=== PATIENT | male | born 1965 | race Caucasian/White ===

== ENCOUNTER 2017-01-07 23:52 | Emergency (ER) | payer OTHER ==
[2017-01-08 00:03] VITALS: BP 127/89; PULSE 67; RESP 18; TEMP 99.2
[2017-01-08] MEDS ORDERED: methylPREDNISolone SOD SUCCI 125 MG/2 ML VIAL IM STA (00:31)
[2017-01-08] MEDS ORDERED: HYDROmorphone 1 MG/ML 1 ML SYRINGE IM STA (00:31)
[2017-01-08] MEDS ORDERED: ORPHENADRINE 30 MG/ML 2 ML VIAL IM STA (00:31)
--- NOTE | 2017-01-08 00:48 | ED ---
Upper Extremity HPI - General Chief Complaint: Extremity Injury, Upper Stated Complaint: Shoulder Pain/Arm Numb Time Seen by Provider: 01/08/17 00:11 Source: patient, RN notes reviewed Mode of arrival: wheelchair Limitations: no limitations - History of Present Illness Initial Comments: 51-year-old male presents to the emergency department with a chief complaint of bilateral shoulder pain and numbness and tingling down the left arm. Patient has been having the symptoms for about a month ever since he had an injury at work. Patient states that he went orthopedics and he is scheduled to have an MRI on Friday. Patient states he just continued to has the discomfort he tried narcotic was at home with no improvement so he thought maybe we could help him. He is hoping that we can get in the arm so that doesn't hurt anymore. Patient denies any new falls or injuries. Patient states that these symptoms are much like the symptoms he had when he fell and now actually is hand movement has improved since he seen or felt. Patient states he was hoping that we can just take his pain away and that he could get some sleep.Patient denies any recent fever, chills, shortness of breath, chest pain, back pain, abdominal pain, nausea vomiting, numbness or tingling, dysuria or hematuria, constipation or diarrhea, headaches or visual changes, or any other current symptoms. Place: home - Related Data Home Medications Medication Instructions Recorded Confirmed Metoprolol Succinate (ER) [Toprol 100 mg PO DAILY 01/08/17 01/08/17 Xl] Pravastatin Sodium [Pravachol] 10 mg PO DAILY 01/08/17 01/08/17 Previous Rx's Medication Instructions Recorded Orphenadrine [Norflex] 100 mg PO Q12H #10 tablet.er 01/08/17 predniSONE 50 mg PO DAILY #5 tab 01/08/17 Allergies Allergy/AdvReac Type Severity Reaction Status Date / Time No Known Allergies Allergy Verified 01/08/17 00:03 Review of Systems ROS Statement: Those systems with pertinent positive or pertinent negative responses have been documented in the HPI. ROS Other: All systems not noted in ROS Statement are negative. Past Medical History Past Medical History: Hypertension History of Any Multi-Drug Resistant Organisms: None Reported Past Surgical History: Appendectomy, Orthopedic Surgery, Tonsillectomy Past Psychological History: No Psychological Hx Reported Smoking Status: Never smoker Past Alcohol Use History: None Reported Past Drug Use History: None Reported General Exam Limitations: no limitations General appearance: alert, in no apparent distress Head exam: Present: atraumatic, normocephalic, normal inspection Eye exam: Present: normal appearance, PERRL, EOMI. Absent: scleral icterus, conjunctival injection, periorbital swelling Neck exam: Present: normal inspection. Absent: tenderness, meningismus, lymphadenopathy Respiratory exam: Present: normal lung sounds bilaterally. Absent: respiratory distress, wheezes, rales, rhonchi, stridor Cardiovascular Exam: Present: regular rate, normal rhythm, normal heart sounds. Absent: systolic murmur, diastolic murmur, rubs, gallop, clicks Extremities exam: Present: normal inspection, full ROM, tenderness (Diffusely over bilateral shoulders), normal capillary refill, other (Patient does have some decreased strength to dentist private practice in the left hand.) Neurological exam: Present: alert, oriented X3 Psychiatric exam: Present: normal affect, normal mood Skin exam: Present: warm, dry, intact, normal color. Absent: rash Course Vital Signs 01/07/17 23:57 Temperature 99.2 F Pulse Rate 67 Respiratory 18 Rate Blood Pressure 127/89 O2 Sat by Pulse 93 L Oximetry Medical Decision Making - Medical Decision Making 50-year-old male presents emergency Department with a chief complaint of bilateral left shoulder pain which is chronic for the last month or so as well as numbness and tingling to the left arm. This time we did set the patient on steroids muscle relaxers. We discussed continuing to take the pain medication at home. We discussed follow-up with orthopedic follow-up with MRI. We discussed return parameters all patient's questions. He stated he understood the plan. At this time he will be discharged home. Disposition Clinical Impression: Strain of knee, bilateral, Left cervical radiculopathy Disposition: HOME SELF-CARE Condition: Stable Instructions: Cervical Radiculopathy (ED) Additional Instructions: Please use medication as discussed. Please follow up with family doctor if symptoms have not improved over the next two days. Please return to the emergency room if your symptoms increase or worsen or for any other concerns. Prescriptions: Orphenadrine [Norflex] 100 mg PO Q12H #10 tablet.er predniSONE 50 mg PO DAILY #5 tab Referrals: Kareem Ying DO [Primary Care Provider] - 1-2 days Time of Disposition: 00:47
== END 2017-01-08 01:02 | disposition home or self-care (01) ==
LOC: EC 23:52
DX: S46.912A Strain of unspecified muscle, fascia and tendon at shoulder and upper arm level, left arm, initial encounter (principal); S46.911A Strain of unspecified muscle, fascia and tendon at shoulder and upper arm level, right arm, initial encounter; M54.12 Radiculopathy, cervical region; I10 Essential (primary) hypertension; Z79.899 Other long term (current) drug therapy; W01.0XXA Fall on same level from slipping, tripping and stumbling without subsequent striking against object, initial encounter; Y92.009 Unspecified place in unspecified non-institutional (private) residence as the place of occurrence of the external cause
CPT/HCPCS: 99283; 96372 ×3; J2360; J2930; J1170

== ENCOUNTER 2017-01-25 05:43 | Emergency (ER) | payer OTHER ==
[2017-01-25 05:50] VITALS: TEMP 98.4
[2017-01-25] MEDS ORDERED: MORPHINE SULFATE 4 MG/ML SYRINGE IV STA (06:24)
[2017-01-25 06:48] LABS: Basophils % (A) 1 %; CH 32.4; CHCM 34.3; Eosinophils % (A) 1 %; HCT 43.2 % (39.0-53.0); HDW 2.16; HGB 14.5 gm/dL (13.0-17.5); Luc # (Auto) 0.15; Luc % (Auto) 4; Lymphocytes # (A) 1.3 k/uL (1.0-4.8); Lymphocytes % (A) 36 %; MCHC 33.7 g/dL (31.0-37.0); Mean Platelet Volume 7.3; Monocytes # (A) 0.3 k/uL (0-1.0); Monocytes % (A) 7 %; Neutrophils # (A) 1.8 k/uL (1.3-7.7); Neutrophils % (A) 51 %; RBC 4.54 m/uL (4.30-5.90); RDW 14.4 % (11.5-15.5); WBC 3.5 k/uL (3.8-10.6); WBC (Perox) 3.53
--- NOTE | 2017-01-25 06:49 | ED ---
Extremity Problem HPI - General Source: patient Mode of arrival: wheelchair Limitations: no limitations - History of Present Illness MD Complaint: extremity pain -: hour(s) Location: left, upper extremity History of Same: Yes Quality: aching, constant Consistency: constant Improves with: other (Physician) Worsens with: other (Position) Associated Symptoms: denies other symptoms <Stanley Horn - Last Filed: 01/25/17 06:43> <Americo Fuentes - Last Filed: 01/25/17 09:05> - General Chief complaint: Extremity Problem,Nontraumatic Stated complaint: Shoulder/Neck Pain Time Seen by Provider: 01/25/17 06:03 - History of Present Illness Initial comments: This patient is a 51-year-old man who presents with complaint of pain to his left shoulder as well as weakness of the left arm. The patient states that he has had approximately 8 weeks of left shoulder pain like he is having now. 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 The patient has been evaluated in the emergency department and also had follow- up with orthopedics as well as having MRI. He was told that he has an issue with the C6 disc. Patient states that he slept "all over the place last night" and when he woke he was having weakness and aching of the left arm. (Stanley Horn) - Related Data Home Medications Medication Instructions Recorded Confirmed Metoprolol Succinate (ER) [Toprol 100 mg PO DAILY 01/08/17 01/08/17 Xl] Pravastatin Sodium [Pravachol] 10 mg PO DAILY 01/08/17 01/08/17 Previous Rx's Medication Instructions Recorded Orphenadrine [Norflex] 100 mg PO Q12H #10 tablet.er 01/08/17 predniSONE 50 mg PO DAILY #5 tab 01/08/17 Cyclobenzaprine [Flexeril] 10 mg PO TID PRN #20 tablet 01/25/17 Hydrocodone/Acetaminophen [Osprey 2 each PO Q6HR PRN #20 tab 01/25/17 5-325] Ibuprofen [Motrin] 600 mg PO Q6HR PRN #20 tab 01/25/17 Allergies Allergy/AdvReac Type Severity Reaction Status Date / Time Penicillins Allergy Unknown Verified 01/25/17 05:51 Childhood Review of Systems ROS Other: All systems not noted in ROS Statement are negative. Constitutional: Denies: fever, chills Respiratory: Denies: cough, dyspnea Cardiovascular: Denies: chest pain, palpitations, orthopnea, syncope Gastrointestinal: Denies: abdominal pain, nausea, vomiting Musculoskeletal: Reports: as per HPI, arthralgia Skin: Denies: rash Neurological: Reports: weakness. Denies: headache, numbness, paresthesias <KoryStanley - Last Filed: 01/25/17 06:43> ROS Other: All systems not noted in ROS Statement are negative. <Americo Fuentes - Last Filed: 01/25/17 09:05> ROS Statement: Those systems with pertinent positive or pertinent negative responses have been documented in the HPI. Past Medical History Past Medical History: Hypertension History of Any Multi-Drug Resistant Organisms: None Reported Past Surgical History: Appendectomy, Orthopedic Surgery, Tonsillectomy Past Psychological History: No Psychological Hx Reported Smoking Status: Never smoker Past Alcohol Use History: None Reported Past Drug Use History: None Reported <oKryStanley - Last Filed: 01/25/17 06:43> General Exam Limitations: no limitations General appearance: alert, in distress Head exam: Present: atraumatic, normocephalic Eye exam: Present: normal appearance. Absent: scleral icterus, conjunctival injection Respiratory exam: Present: normal lung sounds bilaterally. Absent: respiratory distress, wheezes, rales, rhonchi, stridor Cardiovascular Exam: Present: regular rate, normal rhythm, normal heart sounds. Absent: systolic murmur, diastolic murmur, rubs, gallop GI/Abdominal exam: Present: soft. Absent: distended, tenderness, guarding, rebound, mass Extremities exam: Present: full ROM, tenderness, normal capillary refill. Absent: calf tenderness Back exam: Present: normal inspection. Absent: CVA tenderness (R), CVA tenderness (L) Neurological exam: Present: alert, oriented X3, CN II-XII intact, motor sensory deficit (The patient has 4 out of 5 strength throughout the left upper extremity which is definitely weak versus a contralateral side.) Skin exam: Present: warm, dry, intact, normal color. Absent: rash <Stanley Horn - Last Filed: 01/25/17 06:43> Medical Decision Making - EKG Data -: EKG Interpreted by Mi EKG shows normal: sinus rhythm, axis (Normal), intervals (QTc is 486 ms which is prolonged.), QRS complexes (Normal) Rate: normal (Rate approximately 73 bpm) Interpretation: nonspecific ST-T wave changes <Stanley Horn - Last Filed: 01/25/17 06:43> - Lab Data Result diagrams: 01/25/17 06:30 01/25/17 06:30 - Radiology Data Radiology results: report reviewed (Computed tomography scan of the brain shows no acute process) <Americo Fuentes - Last Filed: 01/25/17 09:05> - Medical Decision Making Patient reevaluated by myself, Dr. Fuentes. Patient states fall occurred 10 weeks ago and did fall around 10 feet. 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 Patient states it is not significantly worse over the past several days. Patient states his discomfort has increased significantly over the past couple of days. Patient still feels uncomfortable despite pain medication. Patient did follow-up with Dr. Santoyo and had MRI done around 10 days ago stating there was a C6 degenerative problem. Patient reexamined again at 8:55 AM. Patient is starting to feel somewhat better and comfortable and requests discharge home. Patient would like further pain medication prior to discharge. Patient is advised to follow-up with specialist or neurosurgeon for further evaluation. Patient has been on steroids twice for this and therefore this will be avoided this time. (Americo Fuentes) - Lab Data Lab Results 01/25/17 01/25/17 01/25/17 Range/Units 06:30 06:30 06:30 WBC 3.5 L (3.8-10.6) k/uL RBC 4.54 (4.30-5.90) m/uL Hgb 14.5 (13.0-17.5) gm/dL Hct 43.2 (39.0-53.0) % MCV 95.0 (80.0-100.0) fL MCH 32.0 (25.0-35.0) pg MCHC 33.7 (31.0-37.0) g/dL RDW 14.4 (11.5-15.5) % Plt Count 91 L (150-450) k/uL Neutrophils % 51 % Lymphocytes % 36 % Monocytes % 7 % Eosinophils % 1 % Basophils % 1 % Neutrophils # 1.8 (1.3-7.7) k/uL Lymphocytes # 1.3 (1.0-4.8) k/uL Monocytes # 0.3 (0-1.0) k/uL Eosinophils # 0.0 (0-0.7) k/uL Basophils # 0.0 (0-0.2) k/uL Manual Slide Review Performed Sodium 143 (137-145) mmol/L Potassium 3.3 L (3.5-5.1) mmol/L Chloride 100 (98-107) mmol/L Carbon Dioxide 28 (22-30) mmol/L Anion Gap 15 mmol/L BUN 13 (9-20) mg/dL Creatinine 0.58 L (0.66-1.25) mg/dL Est GFR (MDRD) Af Amer >60 (>60 ml/min/1.73 sqM) Est GFR (MDRD) Non-Af >60 (>60 ml/min/1.73 sqM) Glucose 86 (74-99) mg/dL Calcium 8.5 (8.4-10.2) mg/dL Magnesium (1.6-2.3) mg/dL Total Bilirubin 1.0 (0.2-1.3) mg/dL AST 169 H (17-59) U/L ALT 107 H (21-72) U/L Alkaline Phosphatase 69 (38-126) U/L Troponin I <0.012 (0.000-0.034) ng/mL Total Protein 6.8 (6.3-8.2) g/dL Albumin 4.0 (3.5-5.0) g/dL 01/25/17 Range/Units 06:30 WBC (3.8-10.6) k/uL RBC (4.30-5.90) m/uL Hgb (13.0-17.5) gm/dL Hct (39.0-53.0) % MCV (80.0-100.0) fL MCH (25.0-35.0) pg MCHC (31.0-37.0) g/dL RDW (11.5-15.5) % Plt Count (150-450) k/uL Neutrophils % % Lymphocytes % % Monocytes % % Eosinophils % % Basophils % % Neutrophils # (1.3-7.7) k/uL Lymphocytes # (1.0-4.8) k/uL Monocytes # (0-1.0) k/uL Eosinophils # (0-0.7) k/uL Basophils # (0-0.2) k/uL Manual Slide Review Sodium (137-145) mmol/L Potassium (3.5-5.1) mmol/L Chloride (98-107) mmol/L Carbon Dioxide (22-30) mmol/L Anion Gap mmol/L BUN (9-20) mg/dL Creatinine (0.66-1.25) mg/dL Est GFR (MDRD) Af Amer (>60 ml/min/1.73 sqM) Est GFR (MDRD) Non-Af (>60 ml/min/1.73 sqM) Glucose (74-99) mg/dL Calcium (8.4-10.2) mg/dL Magnesium 1.8 (1.6-2.3) mg/dL Total Bilirubin (0.2-1.3) mg/dL AST (17-59) U/L ALT (21-72) U/L Alkaline Phosphatase (38-126) U/L Troponin I (0.000-0.034) ng/mL Total Protein (6.3-8.2) g/dL Albumin (3.5-5.0) g/dL Disposition <Stanley Horn - Last Filed: 01/25/17 06:43> Time of Disposition: 09:05 <Americo Fuentes - Last Filed: 01/25/17 09:05> Clinical Impression: Cervical radiculopathy Disposition: HOME SELF-CARE Condition: Stable Instructions: Cervical Radiculopathy (ED) Additional Instructions: Please follow-up with Dr. Ferrer or neurosurgeon this coming week. Return for increased weakness, uncontrolled pain, fever, change or worsening symptoms or other concerns. Prescriptions: Cyclobenzaprine [Flexeril] 10 mg PO TID PRN #20 tablet PRN Reason: Pain Hydrocodone/Acetaminophen [Osprey 5-325] 2 each PO Q6HR PRN #20 tab PRN Reason: Pain Ibuprofen [Motrin] 600 mg PO Q6HR PRN #20 tab PRN Reason: Pain Referrals: None,Stated [Primary Care Provider] - 1-2 days Deann Ferrer DO [Doctor of Osteopathic Medicine] - 1-2 days Luis,Petr, MD [STAFF PHYSICIAN] - 1-2 days Shraddha Griffith MD [REFERRING] - 1-2 days
[2017-01-25] MEDS ORDERED: HYDROmorphone 1 MG/ML 1 ML SYRINGE IVP STA ×2 (06:54→07:59)
[2017-01-25 06:55] LABS: ALT 107 U/L (21-72); AST 169 U/L (17-59); Alkaline Phosphatase 69 U/L (38-126); Anion Gap 15 mmol/L; Blood Urea Nitrogen 13 mg/dL (9-20); Calcium 8.5 mg/dL (8.4-10.2); Carbon Dioxide 28 mmol/L (22-30); Chloride 100 mmol/L (98-107); Glucose 86 mg/dL (74-99); Non-African American GFR(MDRD) >60 (>60 ml/min/1.73 sqM); Potassium 3.3 mmol/L (3.5-5.1); Sodium 143 mmol/L (137-145); Total Protein 6.8 g/dL (6.3-8.2)
[2017-01-25 07:07] LABS: Manual Review Performed
--- NOTE | 2017-01-25 07:22 | CT ---
EXAM: CT Head Without Intravenous Contrast CLINICAL HISTORY: weakness TECHNIQUE: Axial computed tomography images of the head/brain without intravenous contrast. CTDI is 60.3 mGy and DLP is 1180.9 mGy-cm. This CT exam was performed using one or more of the following dose reduction techniques: automated exposure control, adjustment of the mA and/or kV according to patient size, and/or use of iterative reconstruction technique. Coronal and sagittal reconstructions are performed COMPARISON: No relevant prior studies available. FINDINGS: Brain: Unremarkable. No hemorrhage. No significant white matter disease. No edema. Ventricles: Unremarkable. No ventriculomegaly. Bones/joints: Unremarkable. No acute fracture. Soft tissues: Unremarkable. Sinuses: Minimal air fluid level in left sphenoid sinus. Mastoid air cells: Unremarkable as visualized. No mastoid effusion. IMPRESSION: No acute intracranial findings.
[2017-01-25 07:23] VITALS: RESP 18
[2017-01-25] MEDS ORDERED: ONDANSETRON 4 MG/2 ML VIAL IVP STA (08:25)
[2017-01-25] MEDS ORDERED: ORPHENADRINE 30 MG/ML 2 ML VIAL IVP STA (09:02)
[2017-01-25] MEDS ORDERED: KETOROLAC 30 MG/ML 1 ML VIAL IVP STA (09:02)
[2017-01-25 09:15] VITALS: BP 174/97; PULSE 70
== END 2017-01-25 09:30 | disposition home or self-care (01) ==
LOC: EC 05:43
DX: M54.12 Radiculopathy, cervical region (principal); I10 Essential (primary) hypertension; Z79.899 Other long term (current) drug therapy; Z88.0 Allergy status to penicillin; W17.89XD Other fall from one level to another, subsequent encounter
CPT/HCPCS: 36415; 93005; 80053; 83735; 84484; 85025; 70450; 99284; 96374; 96376; 96375 ×4; J2270; J2360; J2405; J1885; J1170

== ENCOUNTER → 2017-12-29 | Outpatient (CLI) | payer OTHER ==
--- NOTE | 2017-12-29 08:42 | US ---
EXAMINATION TYPE: US abdomen limited DATE OF EXAM: 12/29/2017 COMPARISON: NONE CLINICAL HISTORY: 52-year-old male R17 Unspecified Jaundice. Elevated total bilirubin TECHNIQUE: Multiple sonographic images of the right upper quadrant are obtained. 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 Visualized portions show no gross abnormal body. Liver: Limited intercostal views show echogenic appearance. No focal lesion in the visualized portion s. Gallbladder: No abnormal distention, pericholecystic fluid, or shadowing calculi. Wall thickness is upper limits of normal at 3 mm. Evidence for sonographic Pollock's sign: no CBD: appears wnl as visualized Right Kidney: no evidence of hydronephrosis IMPRESSION: 1. No cholelithiasis or biliary ductal dilatation. 2. Technically limited exam with intercostal imaging of the liver showing echogenic appearance. Findi ngs suggest hepatic steatosis.
== END | disposition home or self-care (01) ==
LOC: RADUSWWP 07:27
PROVIDERS: ATTEND Internal Medicine
DX: R93.2 Abnormal findings on diagnostic imaging of liver and biliary tract (principal); R17 Unspecified jaundice
CPT/HCPCS: 76705

== ENCOUNTER → 2018-08-26 | Outpatient (CLI) | payer OTHER ==
[2018-08-26 15:57] LABS: Partial Thromboplastin Time 23.7 sec (22.0-30.0); Prothrombin Time 11.1 sec (9.0-12.0)
[2018-08-27 02:56] LABS: Albumin 3.8 g/dL (3.80-4.90); Albumin/Globulin Ratio 1.52 (1.20-2.10); Calcium 8.6 mg/dL (8.7-10.3); Globulin 2.5 g/dL (1.6-3.3); Potassium 4.2 mmol/L (3.5-5.5); Total Bilirubin 0.8 mg/dL (0.3-1.2); Total Protein 6.3 g/dL (6.2-8.2)
[2018-08-27 04:20] LABS: Cardiolipin Ab IgG Interp NEGATIVE (NEGATIVE); Cardiolipin Ab IgM Interp NEGATIVE (NEGATIVE); Cardiolipin IgA Antibody 1.3 U/mL
[2018-08-27 08:07] LABS: APTT 39 Sec(s) (<43); Anti-Thrombin III Antigen 87 % (80 - 120); DRVVT 1:1 Mix 43 Sec(s) (<44); Dilute Russell Viper Venom 53 Sec(s) (<44); Protein S Antigen 158 % (50 - 140)
[2018-08-28 11:02] LABS: Protein C (Activity) 41 % (71-138)
== END | disposition home or self-care (01) ==
LOC: LABWHC1 14:44
PROVIDERS: ATTEND Internal Medicine
DX: D68.69 Other thrombophilia (principal)
CPT/HCPCS: 36415; 80053; 82784; 82785; 83090; 85301; 85303; 85305; 85610; 85613; 85730; 86147

== ENCOUNTER → 2019-09-06 | Outpatient (CLI) | payer MEDICARE ==
--- NOTE | 2019-09-06 10:09 | US ---
EXAMINATION TYPE: US abdomen limited DATE OF EXAM: 09/06/2019 COMPARISON: US 12/29/17 CLINICAL HISTORY: R74.8 Elevated liver enzymes. EXAM MEASUREMENTS: Liver Length: 17.7 cm cm Gallbladder Wall: 0.4 cm CBD: 0.5 cm Right Kidney: 12.5 x 5.6 x 5.6 cm Pancreas: Within normal limits Liver: There is increased echogenicity of the hepatic parenchyma with diminished visualization of th e portal triads most commonly relating to hepatic steatosis and limiting evaluation for underlying he patic masses. Gallbladder: Filled with gallstones. Evidence for sonographic Pollock's sign: No CBD: wnl Right Kidney: No hydronephrosis or nephrolithiasis IMPRESSION: 1. Cholelithiasis without sonographic evidence of acute cholecystitis. 2. Sonographic findings most commonly related to hepatic steatosis. Correlate with liver function garrett ts.
== END | disposition home or self-care (01) ==
LOC: RADUSWWP 08:55
PROVIDERS: ATTEND Internal Medicine
DX: K80.20 Calculus of gallbladder without cholecystitis without obstruction (principal)
CPT/HCPCS: 76705

== ENCOUNTER 2022-08-16 20:14 | Inpatient (IN) | payer MEDICARE, OTHER ==
[~2022-08-16 20:14] MED LIST: EPINEPHrine 10 ML SYRINGE (0.1 MG/ML) ONE; NOREPINEPHRINE 1 MG/ML 4 ML VIAL IV ONE; SODIUM CHLORIDE 0.9% 250 ML BAG ONE
[2022-08-16] MEDS ORDERED: SODIUM CHLORIDE 0.9% 1,000 ML IV ONE ×3 (20:34→23:03)
[2022-08-16] MEDS ORDERED: ROCURONIUM 10 MG/ML (5 ML VIAL) IV STA (20:35)
[2022-08-16] MEDS ORDERED: ETOMIDATE 2 MG/ML 10 ML VIAL IVP STA (20:35)
[2022-08-16 20:37] LABS: Glucose,Whole Blood 128 mg/dL (70-110)
--- NOTE | 2022-08-16 20:52 | ED ---
Altered Mental Status HPI - General Chief Complaint: Altered Mental Status Stated Complaint: Altered Mental Time Seen by Provider: 08/16/22 20:15 Source: EMS Mode of arrival: EMS - History of Present Illness Initial Comments: 57-year-old male with past medical history of alcohol abuse presents to the emergency department as a possible code stroke. EMS states that the patient was at home, acting his normal self around 7:30. It is then reported that his roommate checked out him at 8 PM and found face first down in bed unresponsive. They found the patient to be hypotensive. They required bagging him into the emergency department because of his agonal respirations. It was reported that the patient is an alcoholic and was on a binge recently. Daughter and friend arrived to the emergency department. They state that the patient has not had anything to drink since the first. He has had significant nausea and vomiting. They state that today he was vomiting until he could no longer stand and slumped down. This is when they called EMS. The remainder of the HPI is limited due to the patient's obtunded status - Related Data Home Medications Medication Instructions Recorded Confirmed Metoclopramide [Reglan] 5 mg PO QID PRN 08/17/22 08/17/22 Metoprolol Succinate (ER) [Toprol 50 mg PO DAILY 08/17/22 08/17/22 XL] Omeprazole [PriLOSEC] 20 mg PO DAILY 08/17/22 08/17/22 Potassium Chloride ER [K-Dur 20] 20 meq PO BID 08/17/22 08/17/22 Pravastatin Sodium [Pravachol] 40 mg PO DAILY 08/17/22 08/17/22 methocarbamoL [Methocarbamol] 750 mg PO TID PRN 08/17/22 08/17/22 Previous Rx's Medication Instructions Recorded Hydrocodone/Acetaminophen [[place] 2 each PO Q6HR PRN #20 tab 01/25/17 5-325] Allergies Allergy/AdvReac Type Severity Reaction Status Date / Time Penicillins Allergy Unknown Verified 08/17/22 12:59 Childhood Review of Systems ROS Statement: Those systems with pertinent positive or pertinent negative responses have been documented in the HPI. ROS Other: All systems not noted in ROS Statement are negative. Past Medical History Past Medical History: Hypertension History of Any Multi-Drug Resistant Organisms: None Reported Past Surgical History: Appendectomy, Orthopedic Surgery, Tonsillectomy Past Psychological History: No Psychological Hx Reported Past Alcohol Use History: None Reported Past Drug Use History: None Reported - Past Family History family Family Medical History: Cancer Additional Family Medical History / Comment(s): no CAD General Exam Limitations: altered mental status General appearance: obtunded Head exam: Present: atraumatic, normocephalic, normal inspection Pupils: Present: mydriatic ENT exam: Present: mucous membranes dry Neck exam: Present: normal inspection Respiratory exam: Present: other (agonal breathing) Cardiovascular Exam: Present: tachycardia, irregular rhythm Neurological exam: Present: altered, other (will not follow commands. nonsensical speech. no lateralizing deficits appreaciated) Psychiatric exam: Present: agitated Skin exam: Present: diaphoretic, mottled Course Vital Signs 08/16/22 08/16/22 08/16/22 20:16 20:26 20:36 Temperature 97.0 F L Pulse Rate 170 H 168 H 184 H Respiratory 18 16 1 L Rate Blood Pressure 97/80 87/69 95/45 O2 Sat by Pulse 90 L 89 L Oximetry Fraction of Inspired Oxygen (FIO2) 08/16/22 08/16/22 08/16/22 20:37 20:40 20:41 Temperature Pulse Rate 203 H 197 H Respiratory 7 L 18 Rate Blood Pressure 57/42 63/26 O2 Sat by Pulse 100 Oximetry Fraction of 100 Inspired Oxygen (FIO2) 08/16/22 08/16/22 08/16/22 20:45 21:14 21:17 Temperature Pulse Rate 110 H 104 H Respiratory 18 16 Rate Blood Pressure 104/65 131/79 O2 Sat by Pulse 100 99 Oximetry Fraction of 100 Inspired Oxygen (FIO2) 08/16/22 08/16/22 08/16/22 22:00 23:00 23:11 Temperature Pulse Rate 102 H 101 H 93 Respiratory 18 18 18 Rate Blood Pressure 130/84 80/56 108/93 O2 Sat by Pulse 98 98 100 Oximetry Fraction of 70 Inspired Oxygen (FIO2) 08/17/22 00:00 Temperature Pulse Rate 91 Respiratory 31 H Rate Blood Pressure 114/87 O2 Sat by Pulse 98 Oximetry Fraction of Inspired Oxygen (FIO2) - Reevaluation(s) Reevaluation #1: Spoke with Dr. Barillas - will await stabilization of the patient and CT/Ct angiography 01/06/23 2030 Reevaluation #2: Patient intubated, cardioverted and now off to CT 08/16/22 20:52 Reevaluation #3: 08/16/22 21:[address] Barillas - will not administer TPA. No CVA seen on CT. Patient likely has other diagnosis to explain AMS. Risks outweigh benefits of TPA. Reevaluation #4: Spoke with Dr. Nesbitt, agrees to admit patient. 08/16/22 23:16 Procedures - Procedures Initial comment: Synchronized cardioversion performed at 150J. Patient already intubated and sedated prior to procedure. Performed due to hemodynamic instability. No consent obtained due to emergent nature. - ABG Interpretation Ph: 7.1 PCO2: 50 PO2: 240 Bicarbonate: 16.5 Interpretation: metabolic acidosis - Intubation Sedative: Etomidate Mg Given: 20 Paralytic: Rocuronium Mg Given: 50 Laryngoscope: fiber optic video scope Size: 3 ET Tube Size: 7 ET Tube Uncuffed: No Tube Secured Depth (cm): 24 Tube Secured Location: lips Tube Placement Confirmation: visualized tube passing through cords, equal breath sounds bilaterally, no breath sounds over epigastrium, confirmation by capnometry Patient Tolerated Procedure: well, no complications Medical Decision Making - Medical Decision Making Was pt. sent in by a medical professional or institution? no Did you speak to anyone other than the patient for history? girlfriend, daughter, ems Did you review nursing and triage notes? yes and I agree Were old charts reviewed? yes in an attempt to gain history on the patient Differential Diagnosis? MDM Differential Altered Mental Status: Hypoglycemia, DKA, hypercapnia, ETOH, overdose, CO poisoning, trauma, myxedema coma, HTN encephalopathy, infection, encephalitis, psychosis, intercranial hemorrhage, hepatic encephalopathy, meningitis, CVA this is not meant to be an all-inclusive list EKG interpreted by me (3pts min.)? yes X-rays interpreted by me (1pt min.)? yes CT interpreted by me (1pt min.)? yes U/S interpreted by me (1pt. min.)? no What testing was considered but not performed? (CT, X-rays, U/S, labs)? Why? none What meds were considered but not given? Why? none Did you discuss the management of the patient with other professionals? elementary school director and admitting physician Did you reconcile home meds? yes Was smoking cessation discussed for >3mins.? no Was critical care preformed (if so, how long)? 48 minutes Were there social determinants of health that impacted care today? How? (Homelessness, low income, unemployed, alcoholism, drug addiction, transportation, low edu. Level, literacy, decrease access to med. care, snf, rehab)? alcoholism put the patient into withdrawal subsequently leading to ER visit Was there de-escalation of care discussed even if they declined? (Discuss DNR or withdrawal of care, Hospice)? no What co-morbidities impacted this encounter? (DM, HTN, Smoking, COPD, CAD, Cancer, CVA, Hep., AIDS, mental health diagnosis, sleep apnea, morbid obesity)? alcohol abuse Was patient admitted / discharged? @Upon arrival the patient was promptly placed into trauma 2. He is placed on continuous pulse ox and cardiac monitoring. Vitals are obtained. Patient does have a heart rate of 220. Blood pressure is 50/30. Patient has agonal respirations. He does not follow any commands. Do attempt to assess an NIH which is 21. Code stroke was activated as it is reported to me that the patient had sudden onset of altered mental status. Due to the patient's inability to protect his airway, he is intubated. At 7-[place] tube is secured 24 cm at the lip. The patient is then cardioverted due to his hypotension and elevated heart rate. He does have conversion to a normal sinus rhythm with normal blood pressure. He is given 3 L bolus of normal saline. Patient taken for CT of his brain, CT angiography is head and neck, CT angios chest abdomen pelvis due to his altered mental status, hypotension, mottled extremities. CTs are read as negative. Did discuss the case with Dr. Barillas. Risk of alteplase administration is too high in regards to the benefits of treatment and therefore this is not administered to the patient. Laboratory studies reveal a potassium of 2.7. Lactic of 12.4. Troponin of 0.304. Patient was originally placed on a propofol drip however he does have a markedly decrease in his blood pressure with this medication. This is removed and the patient is started on a Versed and fentanyl drip. I did discuss the patient's care with Dr. Wilson who will accept admission of the patient. I also spoke with Dr. Nesbitt who accepted the patient into ICU. He will be placed on 150 mL of normal saline per hour. He is on a Versed drip for alcohol withdrawal. Cardiology and nephrology consulted. Patient taken to the floor in stable condition with guarded p rognosis Undiagnosed new problem with uncertain prognosis? yes Drug Therapy requiring intensive monitoring for toxicity (Heparin, Nitro, Insulin, Cardizem)? yes - propofol gtt which is later switched to fentanyl and versed gtt Were any procedures done? Intubation, synchronized cardioversion Diagnosis/symptom? encephalopathy with vent dependance Acute, or Chronic, or Acute on Chronic? acute Uncomplicated (without systemic symptoms) or Complicated (systemic symptoms)? complicated Side effects of treatment? possible with intubation Exacerbation, Progression, or Severe Exacerbation] no Poses a threat to life or bodily function? yes Diagnosis/symptom? new onset afib with rvr Acute, or Chronic, or Acute on Chronic? acute Uncomplicated (without systemic symptoms) or Complicated (systemic symptoms)? complicated Side effects of treatment? possible with cardioversion Exacerbation, Progression, or Severe Exacerbation] no Poses a threat to life or bodily function? yes Diagnosis/symptom? acute hypotension Acute, or Chronic, or Acute on Chronic? acute Uncomplicated (without systemic symptoms) or Complicated (systemic symptoms)? complicated Side effects of treatment? possible with cardioversion Exacerbation, Progression, or Severe Exacerbation] no Poses a threat to life or bodily function? yes - Lab Data Result diagrams: 08/26/22 05:00 08/26/22 15:10 Lab Results 08/16/22 08/16/22 08/16/22 Range/Units 20:35 21:19 21:19 WBC (3.8-10.6) k/uL RBC (4.30-5.90) m/uL Hgb (13.0-17.5) gm/dL Hct (39.0-53.0) % MCV (80.0-100.0) fL MCH (25.0-35.0) pg MCHC (31.0-37.0) g/dL RDW (11.5-15.5) % Plt Count (150-450) k/uL MPV Neutrophils % % Lymphocytes % % Monocytes % % Eosinophils % % Basophils % % Neutrophils # (1.3-7.7) k/uL Lymphocytes # (1.0-4.8) k/uL Monocytes # (0-1.0) k/uL Eosinophils # (0-0.7) k/uL Basophils # (0-0.2) k/uL PT (9.0-12.0) sec INR (<1.2) APTT (22.0-30.0) sec Sample Site ABG pH (7.35-7.45) ABG pCO2 (35-45) mmHg ABG pO2 (83-108) mmHg ABG HCO3 (21-25) mmol/L ABG Total CO2 (19-24) mmol/L ABG O2 Saturation (94-97) % ABG Base Excess mmol/L Clint Test VBG pH (7.31-7.41) VBG pCO2 (37-51) mmHg VBG HCO3 (24-28) mmol/L FiO2 % Sodium (137-145) mmol/L Potassium (3.5-5.1) mmol/L Chloride (98-107) mmol/L Carbon Dioxide (22-30) mmol/L Anion Gap mmol/L BUN (9-20) mg/dL Creatinine (0.66-1.25) mg/dL Est GFR (CKD-EPI)AfAm (>60 ml/min/1.73 sqM) Est GFR (CKD-EPI)NonAf (>60 ml/min/1.73 sqM) Glucose (74-99) mg/dL POC Glucose (mg/dL) 128 H (70-110) mg/dL POC Glu Gem Carver ID [place] Lactic Ac Sepsis Rflx Plasma Lactic Acid Aiden (0.7-2.0) mmol/L Calcium (8.4-10.2) mg/dL Total Bilirubin (0.2-1.3) mg/dL AST (17-59) U/L ALT (4-49) U/L Alkaline Phosphatase (38-126) U/L Ammonia (<30) umol/L Troponin I (0.000-0.034) ng/mL Total Protein (6.3-8.2) g/dL Albumin (3.5-5.0) g/dL Urine Color Dark Yellow Urine Appearance Cloudy (Clear) Urine pH 5.5 (5.0-8.0) Ur Specific [place] 1.034 (1.001-1.035) Urine Protein 2+ H (Negative) Urine Glucose (UA) Trace H (Negative) Urine Ketones Negative (Negative) Urine Blood Moderate H (Negative) Urine Nitrite Negative (Negative) Urine Bilirubin 1+ H (Negative) Urine Urobilinogen 3.0 (<2.0) mg/dL Ur Leukocyte Esterase Negative (Negative) Urine RBC 8 H (0-5) /hpf Urine WBC 10 H (0-5) /hpf Ur Squamous Epith Cells 2 (0-4) /hpf Cellular Casts 4 (0) /lpf Hyaline Casts 218 H (0-2) /lpf Urine Mucus Many H (None) /hpf Urine Opiates Screen Not Detected (NotDetected) Ur Oxycodone Screen Not Detected (NotDetected) Urine Methadone Screen Not Detected (NotDetected) Ur Propoxyphene Screen Not Detected (NotDetected) Ur Barbiturates Screen Not Detected (NotDetected) U Tricyclic Antidepress Not Detected (NotDetected) Ur Phencyclidine Scrn Not Detected (NotDetected) Ur Amphetamines Screen Not Detected (NotDetected) U Methamphetamines Scrn Not Detected (NotDetected) U Benzodiazepines Scrn Detected H (NotDetected) Urine Cocaine Screen Not Detected (NotDetected) U Marijuana (THC) Screen Detected H (NotDetected) Serum Alcohol mg/dL 08/16/22 08/16/22 08/16/22 Range/Units 21:43 22:00 22:00 WBC 17.2 H (3.8-10.6) k/uL RBC 5.95 H (4.30-5.90) m/uL Hgb 18.7 H (13.0-17.5) gm/dL Hct 57.3 H* (39.0-53.0) % MCV 96.4 (80.0-100.0) fL MCH 31.4 (25.0-35.0) pg MCHC 32.6 (31.0-37.0) g/dL RDW 13.3 (11.5-15.5) % Plt Count 150 (150-450) k/uL MPV 10.4 Neutrophils % 81 % Lymphocytes % 12 % Monocytes % 4 % Eosinophils % 1 % Basophils % 1 % Neutrophils # 13.9 H (1.3-7.7) k/uL Lymphocytes # 2.1 (1.0-4.8) k/uL Monocytes # 0.7 (0-1.0) k/uL Eosinophils # 0.1 (0-0.7) k/uL Basophils # 0.1 (0-0.2) k/uL PT (9.0-12.0) sec INR (<1.2) APTT (22.0-30.0) sec Sample Site Right Radial ABG pH 7.13 L* (7.35-7.45) ABG pCO2 50 H (35-45) mmHg ABG pO2 240 H (83-108) mmHg ABG HCO3 17 L (21-25) mmol/L ABG Total CO2 18 L (19-24) mmol/L ABG O2 Saturation 98.8 H (94-97) % ABG Base Excess -12.7 mmol/L Clint Test Yes VBG pH 7.12 L* (7.31-7.41) VBG pCO2 54 H (37-51) mmHg VBG HCO3 17 L (24-28) mmol/L FiO2 100 % Sodium (137-145) mmol/L Potassium (3.5-5.1) mmol/L Chloride (98-107) mmol/L Carbon Dioxide (22-30) mmol/L Anion Gap mmol/L BUN (9-20) mg/dL Creatinine (0.66-1.25) mg/dL Est GFR (CKD-EPI)AfAm (>60 ml/min/1.73 sqM) Est GFR (CKD-EPI)NonAf (>60 ml/min/1.73 sqM) Glucose (74-99) mg/dL POC Glucose (mg/dL) (70-110) mg/dL POC Glu Gem Carver ID Lactic Ac Sepsis Rflx Plasma Lactic Acid Aiden (0.7-2.0) mmol/L Calcium (8.4-10.2) mg/dL Total Bilirubin (0.2-1.3) mg/dL AST (17-59) U/L ALT (4-49) U/L Alkaline Phosphatase (38-126) U/L Ammonia (<30) umol/L Troponin I (0.000-0.034) ng/mL Total Protein (6.3-8.2) g/dL Albumin (3.5-5.0) g/dL Urine Color Urine Appearance (Clear) Urine pH (5.0-8.0) Ur Specific [place] (1.001-1.035) Urine Protein (Negative) Urine Glucose (UA) (Negative) Urine Ketones (Negative) Urine Blood (Negative) Urine Nitrite (Negative) Urine Bilirubin (Negative) Urine Urobilinogen (<2.0) mg/dL Ur Leukocyte Esterase (Negative) Urine RBC (0-5) /hpf Urine WBC (0-5) /hpf Ur Squamous Epith Cells (0-4) /hpf Cellular Casts (0) /lpf Hyaline Casts (0-2) /lpf Urine Mucus (None) /hpf Urine Opiates Screen (NotDetected) Ur Oxycodone Screen (NotDetected) Urine Methadone Screen (NotDetected) Ur Propoxyphene Screen (NotDetected) Ur Barbiturates Screen (NotDetected) U Tricyclic Antidepress (NotDetected) Ur Phencyclidine Scrn (NotDetected) Ur Amphetamines Screen (NotDetected) U Methamphetamines Scrn (NotDetected) U Benzodiazepines Scrn (NotDetected) Urine Cocaine Screen (NotDetected) U Marijuana (THC) Screen (NotDetected) Serum Alcohol mg/dL 08/16/22 08/16/22 08/16/22 Range/Units 22:00 22:00 22:00 WBC (3.8-10.6) k/uL RBC (4.30-5.90) m/uL Hgb (13.0-17.5) gm/dL Hct (39.0-53.0) % MCV (80.0-100.0) fL MCH (25.0-35.0) pg MCHC (31.0-37.0) g/dL RDW (11.5-15.5) % Plt Count (150-450) k/uL MPV Neutrophils % % Lymphocytes % % Monocytes % % Eosinophils % % Basophils % % Neutrophils # (1.3-7.7) k/uL Lymphocytes # (1.0-4.8) k/uL Monocytes # (0-1.0) k/uL Eosinophils # (0-0.7) k/uL Basophils # (0-0.2) k/uL PT 13.8 H (9.0-12.0) sec INR 1.4 H (<1.2) APTT 23.5 (22.0-30.0) sec Sample Site ABG pH (7.35-7.45) ABG pCO2 (35-45) mmHg ABG pO2 (83-108) mmHg ABG HCO3 (21-25) mmol/L ABG Total CO2 (19-24) mmol/L ABG O2 Saturation (94-97) % ABG Base Excess mmol/L Clint Test VBG pH (7.31-7.41) VBG pCO2 (37-51) mmHg VBG HCO3 (24-28) mmol/L FiO2 % Sodium 141 (137-145) mmol/L Potassium 2.7 L* (3.5-5.1) mmol/L Chloride 98 (98-107) mmol/L Carbon Dioxide 16 L (22-30) mmol/L Anion Gap 27 mmol/L BUN 52 H (9-20) mg/dL Creatinine 3.66 H (0.66-1.25) mg/dL Est GFR (CKD-EPI)AfAm 20 (>60 ml/min/1.73 sqM) Est GFR (CKD-EPI)NonAf 17 (>60 ml/min/1.73 sqM) Glucose 155 H (74-99) mg/dL POC Glucose (mg/dL) (70-110) mg/dL POC Glu Gem Carver ID Lactic Ac Sepsis Rflx Plasma Lactic Acid Aiden (0.7-2.0) mmol/L Calcium 7.8 L (8.4-10.2) mg/dL Total Bilirubin 3.7 H (0.2-1.3) mg/dL AST 191 H (17-59) U/L ALT 84 H (4-49) U/L Alkaline Phosphatase 85 (38-126) U/L Ammonia (<30) umol/L Troponin I 0.304 H* (0.000-0.034) ng/mL Total Protein 6.9 (6.3-8.2) g/dL Albumin 3.9 (3.5-5.0) g/dL Urine Color Urine Appearance (Clear) Urine pH (5.0-8.0) Ur Specific [place] (1.001-1.035) Urine Protein (Negative) Urine Glucose (UA) (Negative) Urine Ketones (Negative) Urine Blood (Negative) Urine Nitrite (Negative) Urine Bilirubin (Negative) Urine Urobilinogen (<2.0) mg/dL Ur Leukocyte Esterase (Negative) Urine RBC (0-5) /hpf Urine WBC (0-5) /hpf Ur Squamous Epith Cells (0-4) /hpf Cellular Casts (0) /lpf Hyaline Casts (0-2) /lpf Urine Mucus (None) /hpf Urine Opiates Screen (NotDetected) Ur Oxycodone Screen (NotDetected) Urine Methadone Screen (NotDetected) Ur Propoxyphene Screen (NotDetected) Ur Barbiturates Screen (NotDetected) U Tricyclic Antidepress (NotDetected) Ur Phencyclidine Scrn (NotDetected) Ur Amphetamines Screen (NotDetected) U Methamphetamines Scrn (NotDetected) U Benzodiazepines Scrn (NotDetected) Urine Cocaine Screen (NotDetected) U Marijuana (THC) Screen (NotDetected) Serum Alcohol <10 mg/dL 08/16/22 08/16/22 Range/Units 22:00 22:49 WBC (3.8-10.6) k/uL RBC (4.30-5.90) m/uL Hgb (13.0-17.5) gm/dL Hct (39.0-53.0) % MCV (80.0-100.0) fL MCH (25.0-35.0) pg MCHC (31.0-37.0) g/dL RDW (11.5-15.5) % Plt Count (150-450) k/uL MPV Neutrophils % % Lymphocytes % % Monocytes % % Eosinophils % % Basophils % % Neutrophils # (1.3-7.7) k/uL Lymphocytes # (1.0-4.8) k/uL Monocytes # (0-1.0) k/uL Eosinophils # (0-0.7) k/uL Basophils # (0-0.2) k/uL PT (9.0-12.0) sec INR (<1.2) APTT (22.0-30.0) sec Sample Site ABG pH (7.35-7.45) ABG pCO2 (35-45) mmHg ABG pO2 (83-108) mmHg ABG HCO3 (21-25) mmol/L ABG Total CO2 (19-24) mmol/L ABG O2 Saturation (94-97) % ABG Base Excess mmol/L Clint Test VBG pH (7.31-7.41) VBG pCO2 (37-51) mmHg VBG HCO3 (24-28) mmol/L FiO2 % Sodium (137-145) mmol/L Potassium (3.5-5.1) mmol/L Chloride (98-107) mmol/L Carbon Dioxide (22-30) mmol/L Anion Gap mmol/L BUN (9-20) mg/dL Creatinine (0.66-1.25) mg/dL Est GFR (CKD-EPI)AfAm (>60 ml/min/1.73 sqM) Est GFR (CKD-EPI)NonAf (>60 ml/min/1.73 sqM) Glucose (74-99) mg/dL POC Glucose (mg/dL) (70-110) mg/dL POC Glu Gem Carver ID Lactic Ac Sepsis Rflx Y Plasma Lactic Acid Aiden 12.4 H* (0.7-2.0) mmol/L Calcium (8.4-10.2) mg/dL Total Bilirubin (0.2-1.3) mg/dL AST (17-59) U/L ALT (4-49) U/L Alkaline Phosphatase (38-126) U/L Ammonia 81 H (<30) umol/L Troponin I (0.000-0.034) ng/mL Total Protein (6.3-8.2) g/dL Albumin (3.5-5.0) g/dL Urine Color Urine Appearance (Clear) Urine pH (5.0-8.0) Ur Specific [place] (1.001-1.035) Urine Protein (Negative) Urine Glucose (UA) (Negative) Urine Ketones (Negative) Urine Blood (Negative) Urine Nitrite (Negative) Urine Bilirubin (Negative) Urine Urobilinogen (<2.0) mg/dL Ur Leukocyte Esterase (Negative) Urine RBC (0-5) /hpf Urine WBC (0-5) /hpf Ur Squamous Epith Cells (0-4) /hpf Cellular Casts (0) /lpf Hyaline Casts (0-2) /lpf Urine Mucus (None) /hpf Urine Opiates Screen (NotDetected) Ur Oxycodone Screen (NotDetected) Urine Methadone Screen (NotDetected) Ur Propoxyphene Screen (NotDetected) Ur Barbiturates Screen (NotDetected) U Tricyclic Antidepress (NotDetected) Ur Phencyclidine Scrn (NotDetected) Ur Amphetamines Screen (NotDetected) U Methamphetamines Scrn (NotDetected) U Benzodiazepines Scrn (NotDetected) Urine Cocaine Screen (NotDetected) U Marijuana (THC) Screen (NotDetected) Serum Alcohol mg/dL - EKG Data EKG Comments: EKG done at 2035 demonstrates A. fib with a rapid rate. Rate of 217. QRS 157. QTC of 331. There is ST elevation aVR. ST depression in 2, 3, aVF, V3 through V6 Repeat EKG done at 2042 demonstrates sinus tachycardia with a rate of 109. UT interval 137. QRS 102. QTC 446. ST depression 2, 3, aVF and V4 through V6. M ild aVR elevation Critical Care Time Critical Care Time: Yes Critical Care Time: 48 minutes Disposition Clinical Impression: Ventilator dependent, Hypokalemia, Atrial fibrillation with RVR, Elevated troponin, Lactic acidosis, Kidney failure, Hypotension, Alcohol withdrawal Disposition: ADMITTED IP TO THIS [facility] Condition: Serious Is patient prescribed a controlled substance at d/c from ED?: No Time of Disposition: 23:16 Decision to Admit Reason: Admit from EC Decision Date: 08/16/22 Decision Time: 23:16
--- NOTE | 2022-08-16 21:11 | CT ---
EXAMINATION TYPE: CT brain wo con DATE OF EXAM: 08/16/2022 COMPARISON: 01/25/2017 HISTORY: AMS. CODE STROKE CT DLP: 1126.4 mGycm Automated exposure control for dose reduction was used. Images obtained of the brain with no contrast. There is cerebral cortical atrophy. There is no mass effect or midline shift. No sign of intracranial hemorrhage. There is previous left frontal craniotomy defect. There is left temporal parietal cranio stefano defect. There is normal aeration of the mastoid sinuses. IMPRESSION: Mild cerebral atrophy. No acute intracranial abnormality. No adverse change compared to old exam.
[2022-08-16 21:37] LABS: Appearance,Urine Cloudy (Clear); Bilirubin,Urine 1+ (Negative); Blood,Urine Moderate (Negative); Cellular Casts,Urine 4 /lpf (0); Color,Urine Dark Yellow; Glucose,Urine (UA) Trace (Negative); Hyaline Casts,Urine 218 /lpf (0-2); Ketones,Urine Negative (Negative); Leukocyte Esterase,Urine Negative (Negative); Mucus,Urine Many /hpf; Nitrite,Urine Negative (Negative); PH, Urine 5.5 (5.0-8.0); Protein,Urine 2+ (Negative); RBC,Urine 8 /hpf (0-5); Specific Gravity,Urine 1.034 (1.001-1.035); Squamous Epithelial Cell,Urine 2 /hpf (0-4); WBC,Urine 10 /hpf (0-5)
[2022-08-16 21:47] LABS: ABG Base Excess -12.7 mmol/L; ABG HCO3 17 mmol/L (21-25); ABG Oxygen Saturation 98.8 % (94-97); ABG PCO2 50 mmHg (35-45); ABG PO2 240 mmHg (83-108); ABG TCO2 18 mmol/L (19-24); Allen Test Performed? Yes
--- NOTE | 2022-08-16 21:48 | CT ---
EXAMINATION TYPE: CT angio head neck DATE OF EXAM: 08/16/2022 COMPARISON: None HISTORY: AMS CT DLP: 551.5 mGycm Automated exposure control for dose reduction was used. CONTRAST: Performed with IV Contrast, patient injected with 65 mL of Isovue 370. Images obtained from the aortic arch to the vertex of the brain with IV contrast. Three-D postprocessed images. There is arterial flow in the thoracic aorta and the aorta shows normal branching pattern. There is a rterial flow in the subclavian arteries bilaterally. There is arterial flow in the common internal an d external carotid arteries bilaterally. There is some plaque formation at the carotid bifurcations a nd approximately 25% stenosis at the origin of the left internal carotid artery. There is arterial fl ow in both vertebral arteries. There is arterial flow in the vertebrobasilar artery system. No mass e ffect. No evidence of carotid or vertebral artery aneurysm or dissection. There is arterial flow in the anterior middle and posterior cerebral arteries bilaterally. No evidenc e of intracranial aneurysm or neovascularity. No evidence of intracranial hemodynamic arterial stenos is. No pathologic enhancement. There is normal enhancement of the venous sinuses. IMPRESSION: Negative CT angiogram of the brain. Mild plaque at the carotid artery bifurcations. No evidence of hemodynamic arterial stenosis in the n sarah.
--- NOTE | 2022-08-16 21:53 | CT ---
EXAMINATION TYPE: CT ChestAbdPelvis w con DATE OF EXAM: 08/16/2022 COMPARISON: None HISTORY: AMS CT DLP: 1260 mGycm Automated exposure control for dose reduction was used. CONTRAST: Performed with IV Contrast, patient injected with 75 mL of Isovue 370. Images obtained from the thoracic inlet to the floor of the pelvis with the IV contrast. There is endotracheal tube. There is no mediastinal adenopathy. Thoracic aorta is intact. There are n o hilar masses. Heart size is normal. There is some mild subsegmental atelectasis right posterior jace g base. No pleural effusion. No pericardial effusion. There is some coronary artery calcification. There are clips from cholecystectomy. Liver and spleen are intact. No pancreatic mass. There is diste nded gas and fluid-filled stomach. There is no adrenal mass. Kidneys show satisfactory contrast opacification. No hydronephrosis. Delaye d images show normal renal excretion. No retroperitoneal adenopathy. The bladder distends smoothly. N o inguinal hernia. No free fluid in the pelvis. There is no mesenteric edema. No ascites or free air. No sign of a bowel obstruction. Terminal ileum appears normal. There is small short appendix. The thoracic and lumbar vertebra. Intact. There is mild spondylotic changes in the mid and lower lumb ar spine. No compression fracture. The sternum is intact. The bony pelvis is intact. The hip joints a re intact. IMPRESSION: No significant abnormality of the chest abdomen pelvis.
[2022-08-16 21:54] LABS: Amphetamine Screen,Urine Not Detected (NotDetected); Barbiturate Screen,Urine Not Detected (NotDetected); Benzodiazepines Screen,Urine Detected (NotDetected); Cocaine Screen,Urine Not Detected (NotDetected); Methadone Screen, Urine Not Detected (NotDetected); Opiate Screen,Urine Not Detected (NotDetected); Oxycodone Screen, Urine Not Detected (NotDetected); Phencyclidine Screen,Urine Not Detected (NotDetected); Tricyclic Antidepressant,Urine Not Detected (NotDetected); Urn Cannabinoid Scrn Detected (NotDetected)
[2022-08-16 22:01] LABS: ABG PH 7.13 (7.35-7.45)
[2022-08-16 22:21] LABS: INR 1.4 (<1.2); Partial Thromboplastin Time 23.5 sec (22.0-30.0); Prothrombin Time 13.8 sec (9.0-12.0)
--- NOTE | 2022-08-16 22:21 | XR ---
EXAMINATION TYPE: XR chest 1V DATE OF EXAM: 08/16/2022 COMPARISON: NONE HISTORY: Altered mental status TECHNIQUE: Single view FINDINGS: Endotracheal tube is 7 cm from the dany. There is nasogastric tube in the stomach. The jailyn ngs are clear of infiltrate. No heart failure. Heart size is normal. There are chest leads. IMPRESSION: No active cardiopulmonary disease. Normal heart.
[2022-08-16 22:28] LABS: Basophils # (A) 0.1 k/uL (0-0.2); Basophils % (A) 1 %; Eosinophils # (A) 0.1 k/uL (0-0.7); Eosinophils % (A) 1 %; HGB 18.7 gm/dL (13.0-17.5); Lymphocytes # (A) 2.1 k/uL (1.0-4.8); Lymphocytes % (A) 12 %; MCH 31.4 pg (25.0-35.0); MCHC 32.6 g/dL (31.0-37.0); MCV 96.4 fL (80.0-100.0); Mean Platelet Volume 10.4; Monocytes # (A) 0.7 k/uL (0-1.0); Monocytes % (A) 4 %; Neutrophils # (A) 13.9 k/uL (1.3-7.7); Neutrophils % (A) 81 %; Platelet Count 150 k/uL (150-450); RBC 5.95 m/uL (4.30-5.90); RDW 13.3 % (11.5-15.5); WBC 17.2 k/uL (3.8-10.6)
[2022-08-16 22:31] LABS: AST 191 U/L (17-59); African American GFR (CKD) 20 (>60 ml/min/1.73 sqM); Albumin 3.9 g/dL (3.5-5.0); Alcohol <10 mg/dL; Alkaline Phosphatase 85 U/L (38-126); Anion Gap 27 mmol/L; Blood Urea Nitrogen 52 mg/dL (9-20); Calcium 7.8 mg/dL (8.4-10.2); Carbon Dioxide 16 mmol/L (22-30); Chloride 98 mmol/L (98-107); Glucose 155 mg/dL (74-99); HCT 57.3 % (39.0-53.0); Non-African American GFR(CKD) 17 (>60 ml/min/1.73 sqM); Sodium 141 mmol/L (137-145); Total Bilirubin 3.7 mg/dL (0.2-1.3); Total Protein 6.9 g/dL (6.3-8.2)
[2022-08-16 22:47] LABS: VBG PH 7.12 (7.31-7.41)
[2022-08-16 22:49] LABS: Lactic Acid, Venous 12.4 mmol/L (0.7-2.0)
[2022-08-16 22:51] LABS: ALT 84 U/L (4-49); Potassium 2.7 mmol/L (3.5-5.1)
[2022-08-16] MEDS ORDERED: POTASSIUM CHLORIDE ER 20 MEQ TAB.ER PO STA (23:01)
[2022-08-16] MEDS ORDERED: POTASSIUM CHLORIDE 20 MEQ in WATER FOR INJECTION 1 100ML.BAG IVPB STA (23:01)
[2022-08-16] MEDS ORDERED: POTASSIUM CHLORIDE 40 MEQ in WATER FOR INJECTION 1 100ML.BAG IVPB STA (23:05)
[2022-08-16] MEDS: SODIUM CHLORIDE 0.9% 1,000 ML IV SCH (23:05)
[2022-08-16] MEDS ORDERED: MIDAZOLAM 1 MG/ML 5 ML VIAL IV STA (23:08)
[2022-08-16] MEDS ORDERED: POTASSIUM BICARBONATE/CIT AC 20 MEQ TABLET.EFF PO ONE (23:20)
[2022-08-16] MEDS: MIDAZOLAM HCL 50 MG in SODIUM CHLORIDE 0.9% 40 ML IV SCH (23:29)
[2022-08-16] MEDS: SODIUM CHLORIDE 0.9% 80 ML with fentaNYL (PF) 1,000 MCG IV SCH ×2 (23:30)
[2022-08-16] MEDS ORDERED: NALOXONE 0.4 MG/ML 1 ML VIAL IV PRN (23:41)
[2022-08-16] MEDS: POTASSIUM CHLORIDE 10 MEQ in WATER FOR INJECTION 1 100ML.BAG IVPB SCH (23:42)
[2022-08-17] MEDS ORDERED: MIDAZOLAM 1 MG/ML 5 ML VIAL IV STA (00:25)
[2022-08-17 00:53] LABS: Glucose,Whole Blood 140 mg/dL (70-110)
[2022-08-17] MEDS: POTASSIUM CHLORIDE 10 MEQ in WATER FOR INJECTION 1 100ML.BAG IVPB SCH ×3 (01:29→03:53)
[2022-08-17 01:52] LABS: Magnesium 2.3 mg/dL (1.6-2.3)
[2022-08-17] MEDS: MIDAZOLAM HCL 50 MG in SODIUM CHLORIDE 0.9% 40 ML IV SCH ×5 (01:55→18:43)
[2022-08-17 02:09] LABS: Phosphorus 9.3 mg/dL (2.5-4.5)
[2022-08-17 02:10] LABS: Lactic Acid, Venous 5.3 mmol/L (0.7-2.0)
[2022-08-17] MEDS: NOREPINEPHRINE 4 MG in SODIUM CHLORIDE 0.9% 250 ML IV SCH (02:42)
[2022-08-17] MEDS ORDERED: HEPARIN SODIUM 1,000 UN/ML (10ML VL) IV PRN (03:46)
[2022-08-17] MEDS ORDERED: HEPARIN SODIUM 1,000 UN/ML (10ML VL) IV ONE (03:46)
[2022-08-17] MEDS ORDERED: HEPARIN SOD,PORK IN 0.45% NACL 25,000 UNIT in 0.45% NACL 1 250ML.BAG IV SCH (04:00)
--- NOTE | 2022-08-17 04:00 | P.HPIM ---
History of Present Illness H&P Date: 08/17/22 Chief Complaint: altered mental status 57 year old male with alcohol dependance / abuse, afib on metoprolol patient arrived with EMS bagging the patient as a code stroke. patient is known for alcohol abuse with binge drinking, however his last drink was Aug 11 (6 days ago.) today he was seen tired , he vomited and slumped down on his face and became unresponsive , and family notified EMS. no report of bleeding, chest pain , or trouble breathing. upon arrival, code stroke was activated, however patient was unstable hypotensive with afib and RVR , patient was intubated and cardioverted. and converted to NSR. CT imaging of the brain showed no acute pathology, interventional neurology outplacement consultant did not recommend to give alteplase. no report of any recent acute illness, unknown if he has been taking his meds, he has history of afib , and supposed to be on metoprolol. blood work in the ED showed acute severe electrolytes imbalance. Review of Systems ROS unobtainable: due to endotracheal tube Past Medical History Past Medical History: Atrial Fibrillation, Hypertension History of Any Multi-Drug Resistant Organisms: None Reported Past Surgical History: Appendectomy, Orthopedic Surgery, Tonsillectomy Past Psychological History: No Psychological Hx Reported Past Alcohol Use History: None Reported Past Drug Use History: None Reported - Past Family History family Additional Family Medical History / Comment(s): no CAD Medications and Allergies Home Medications Medication Instructions Recorded Confirmed Type Metoprolol Succinate (ER) [Toprol 100 mg PO DAILY 01/08/17 01/08/17 History Xl] Orphenadrine [Norflex] 100 mg PO Q12H #10 tablet.er 01/08/17 Rx Pravastatin Sodium [Pravachol] 10 mg PO DAILY 01/08/17 01/08/17 History predniSONE 50 mg PO DAILY #5 tab 01/08/17 Rx Cyclobenzaprine [Flexeril] 10 mg PO TID PRN #20 tablet 01/25/17 Rx Hydrocodone/Acetaminophen [[place] 2 each PO Q6HR PRN #20 tab 01/25/17 Rx 5-325] Ibuprofen [Motrin] 600 mg PO Q6HR PRN #20 tab 01/25/17 Rx Allergies Allergy/AdvReac Type Severity Reaction Status Date / Time Penicillins Allergy Unknown Verified 08/16/22 20:19 Childhood Physical Exam Vitals: Vital Signs Temp Pulse Resp BP Pulse Ox FiO2 08/17/22 02:00 101 H 22 93/76 96 60 08/17/22 01:37 60 08/17/22 01:30 98 28 H 88/64 96 60 08/17/22 01:00 105 H 28 H 123/66 96 70 08/17/22 00:51 70 08/17/22 00:00 91 31 H 114/87 98 08/16/22 23:11 93 18 108/93 100 08/16/22 23:00 101 H 18 80/56 98 08/16/22 22:00 102 H 18 130/84 98 70 08/16/22 21:17 100 08/16/22 21:14 104 H 16 131/79 99 08/16/22 20:45 110 H 18 104/65 100 08/16/22 20:41 197 H 18 63/26 100 08/16/22 20:40 100 08/16/22 20:37 203 H 7 L 57/42 08/16/22 20:36 184 H 1 L 95/45 08/16/22 20:26 168 H 16 87/69 89 L 08/16/22 20:16 97.0 F L 170 H 18 97/80 90 L Intake and Output 08/16/22 08/16/22 08/17/22 14:59 22:59 06:59 Intake Total 516.876 Output Total 50 Balance 466.876 Intake: IV 500 Potassium Chloride 10 meq 200 In Water For Injection 1 100ml.bag @ 100 mls/hr IVPB Q1HR [facility] Rx#: [id number] Sodium Chloride 0.9% 1, 300 000 ml @ 150 mls/hr IV . Q6H40M [facility] Rx#:[id number] Intake, IV Titration 16.876 Amount Midazolam HCl 50 mg In 14.916 Sodium Chloride 0.9% 40 ml @ 1 MG/HR 1 mls/hr IV .Q24H [facility] Rx#:[id number] propofoL 1,000 mg In 1.96 Empty Bag 1 bag @ 20 MCG/ KG/MIN 9.798 mls/hr IV . [id number] [facility] Rx#:[id number] Output: Urine 50 Other: Voiding Method Indwelling Catheter Weight 81.647 kg Constitutional: intubated , makes good eye contact, follows simple commands Eyes: Anicteric sclerae, moist conjunctiva, Pupils equal round reactive to light ENMT: NC/AT Neck: Supple, no masses, or JVD No carotid bruits No thyromegaly Lungs: Clear to auscultation Clear to percussion Normal respiratory effort, no accessory muscle use Cardiovascular: Heart regular in rate and rhythm, No murmurs, gallops, or rubs No peripheral edema Abdominal: Soft Nontender, no guarding, rebound or rigidity Abdomen moving with respiration Normoactive bowel sounds No hepatomegaly, No splenomegaly No palpable mass Skin: Normal temperature, tone, texture, turgor Extremities: No digital cyanosis No clubbing Pedal pulses intact and symmetrical Radial pulses intact and symmetrical No calf tenderness Psychiatric: intubated and sedated , however, awake and follows simple commands Neuro unable to assess properly patient sedated , intubated, and in 4 point restraints Lymphatics: no palpable cervical or supraclavicular lymph nodes Results CBC & Chem 7: 08/16/22 22:00 08/16/22 22:00 Labs: Abnormal Lab Results - Last 24 Hours (Table) 08/16/22 08/16/22 08/16/22 Range/Units 20:35 21:19 21:19 WBC (3.8-10.6) k/uL RBC (4.30-5.90) m/uL Hgb (13.0-17.5) gm/dL Hct (39.0-53.0) % Neutrophils # (1.3-7.7) k/uL PT (9.0-12.0) sec INR (<1.2) ABG pH (7.35-7.45) ABG pCO2 (35-45) mmHg ABG pO2 (83-108) mmHg ABG HCO3 (21-25) mmol/L ABG Total CO2 (19-24) mmol/L ABG O2 Saturation (94-97) % VBG pH (7.31-7.41) VBG pCO2 (37-51) mmHg VBG HCO3 (24-28) mmol/L Potassium (3.5-5.1) mmol/L Carbon Dioxide (22-30) mmol/L BUN (9-20) mg/dL Creatinine (0.66-1.25) mg/dL Glucose (74-99) mg/dL POC Glucose (mg/dL) 128 H (70-110) mg/dL Plasma Lactic Acid Aiden (0.7-2.0) mmol/L Calcium (8.4-10.2) mg/dL Phosphorus (2.5-4.5) mg/dL Total Bilirubin (0.2-1.3) mg/dL AST (17-59) U/L ALT (4-49) U/L Ammonia (<30) umol/L Troponin I (0.000-0.034) ng/mL Urine Protein 2+ H (Negative) Urine Glucose (UA) Trace H (Negative) Urine Blood Moderate H (Negative) Urine Bilirubin 1+ H (Negative) Urine RBC 8 H (0-5) /hpf Urine WBC 10 H (0-5) /hpf Hyaline Casts 218 H (0-2) /lpf Urine Mucus Many H (None) /hpf U Benzodiazepines Scrn Detected H (NotDetected) U Marijuana (THC) Screen Detected H (NotDetected) 08/16/22 08/16/22 08/16/22 Range/Units 21:43 22:00 22:00 WBC 17.2 H (3.8-10.6) k/uL RBC 5.95 H (4.30-5.90) m/uL Hgb 18.7 H (13.0-17.5) gm/dL Hct 57.3 H* (39.0-53.0) % Neutrophils # 13.9 H (1.3-7.7) k/uL PT (9.0-12.0) sec INR (<1.2) ABG pH 7.13 L* (7.35-7.45) ABG pCO2 50 H (35-45) mmHg ABG pO2 240 H (83-108) mmHg ABG HCO3 17 L (21-25) mmol/L ABG Total CO2 18 L (19-24) mmol/L ABG O2 Saturation 98.8 H (94-97) % VBG pH 7.12 L* (7.31-7.41) VBG pCO2 54 H (37-51) mmHg VBG HCO3 17 L (24-28) mmol/L Potassium (3.5-5.1) mmol/L Carbon Dioxide (22-30) mmol/L BUN (9-20) mg/dL Creatinine (0.66-1.25) mg/dL Glucose (74-99) mg/dL POC Glucose (mg/dL) (70-110) mg/dL Plasma Lactic Acid Aiden (0.7-2.0) mmol/L Calcium (8.4-10.2) mg/dL Phosphorus (2.5-4.5) mg/dL Total Bilirubin (0.2-1.3) mg/dL AST (17-59) U/L ALT (4-49) U/L Ammonia (<30) umol/L Troponin I (0.000-0.034) ng/mL Urine Protein (Negative) Urine Glucose (UA) (Negative) Urine Blood (Negative) Urine Bilirubin (Negative) Urine RBC (0-5) /hpf Urine WBC (0-5) /hpf Hyaline Casts (0-2) /lpf Urine Mucus (None) /hpf U Benzodiazepines Scrn (NotDetected) U Marijuana (THC) Screen (NotDetected) 08/16/22 08/16/22 08/16/22 Range/Units 22:00 22:00 22:00 WBC (3.8-10.6) k/uL RBC (4.30-5.90) m/uL Hgb (13.0-17.5) gm/dL Hct (39.0-53.0) % Neutrophils # (1.3-7.7) k/uL PT 13.8 H (9.0-12.0) sec INR 1.4 H (<1.2) ABG pH (7.35-7.45) ABG pCO2 (35-45) mmHg ABG pO2 (83-108) mmHg ABG HCO3 (21-25) mmol/L ABG Total CO2 (19-24) mmol/L ABG O2 Saturation (94-97) % VBG pH (7.31-7.41) VBG pCO2 (37-51) mmHg VBG HCO3 (24-28) mmol/L Potassium 2.7 L* (3.5-5.1) mmol/L Carbon Dioxide 16 L (22-30) mmol/L BUN 52 H (9-20) mg/dL Creatinine 3.66 H (0.66-1.25) mg/dL Glucose 155 H (74-99) mg/dL POC Glucose (mg/dL) (70-110) mg/dL Plasma Lactic Acid Aiden (0.7-2.0) mmol/L Calcium 7.8 L (8.4-10.2) mg/dL Phosphorus (2.5-4.5) mg/dL Total Bilirubin 3.7 H (0.2-1.3) mg/dL AST 191 H (17-59) U/L ALT 84 H (4-49) U/L Ammonia (<30) umol/L Troponin I 0.304 H* (0.000-0.034) ng/mL Urine Protein (Negative) Urine Glucose (UA) (Negative) Urine Blood (Negative) Urine Bilirubin (Negative) Urine RBC (0-5) /hpf Urine WBC (0-5) /hpf Hyaline Casts (0-2) /lpf Urine Mucus (None) /hpf U Benzodiazepines Scrn (NotDetected) U Marijuana (THC) Screen (NotDetected) 08/16/22 08/17/22 08/17/22 Range/Units 22:00 00:52 01:05 WBC (3.8-10.6) k/uL RBC (4.30-5.90) m/uL Hgb (13.0-17.5) gm/dL Hct (39.0-53.0) % Neutrophils # (1.3-7.7) k/uL PT (9.0-12.0) sec INR (<1.2) ABG pH (7.35-7.45) ABG pCO2 (35-45) mmHg ABG pO2 (83-108) mmHg ABG HCO3 (21-25) mmol/L ABG Total CO2 (19-24) mmol/L ABG O2 Saturation (94-97) % VBG pH (7.31-7.41) VBG pCO2 (37-51) mmHg VBG HCO3 (24-28) mmol/L Potassium (3.5-5.1) mmol/L Carbon Dioxide (22-30) mmol/L BUN (9-20) mg/dL Creatinine (0.66-1.25) mg/dL Glucose (74-99) mg/dL POC Glucose (mg/dL) 140 H (70-110) mg/dL Plasma Lactic Acid Aiden 12.4 H* 5.3 H* (0.7-2.0) mmol/L Calcium (8.4-10.2) mg/dL Phosphorus (2.5-4.5) mg/dL Total Bilirubin (0.2-1.3) mg/dL AST (17-59) U/L ALT (4-49) U/L Ammonia 81 H 31 H (<30) umol/L Troponin I (0.000-0.034) ng/mL Urine Protein (Negative) Urine Glucose (UA) (Negative) Urine Blood (Negative) Urine Bilirubin (Negative) Urine RBC (0-5) /hpf Urine WBC (0-5) /hpf Hyaline Casts (0-2) /lpf Urine Mucus (None) /hpf U Benzodiazepines Scrn (NotDetected) U Marijuana (THC) Screen (NotDetected) 08/17/22 08/17/22 Range/Units 01:05 01:15 WBC (3.8-10.6) k/uL RBC (4.30-5.90) m/uL Hgb (13.0-17.5) gm/dL Hct (39.0-53.0) % Neutrophils # (1.3-7.7) k/uL PT (9.0-12.0) sec INR (<1.2) ABG pH (7.35-7.45) ABG pCO2 (35-45) mmHg ABG pO2 (83-108) mmHg ABG HCO3 (21-25) mmol/L ABG Total CO2 (19-24) mmol/L ABG O2 Saturation (94-97) % VBG pH (7.31-7.41) VBG pCO2 (37-51) mmHg VBG HCO3 (24-28) mmol/L Potassium (3.5-5.1) mmol/L Carbon Dioxide (22-30) mmol/L BUN (9-20) mg/dL Creatinine (0.66-1.25) mg/dL Glucose (74-99) mg/dL POC Glucose (mg/dL) (70-110) mg/dL Plasma Lactic Acid Aiden (0.7-2.0) mmol/L Calcium (8.4-10.2) mg/dL Phosphorus 9.3 H* (2.5-4.5) mg/dL Total Bilirubin (0.2-1.3) mg/dL AST (17-59) U/L ALT (4-49) U/L Ammonia (<30) umol/L Troponin I 0.248 H* (0.000-0.034) ng/mL Urine Protein (Negative) Urine Glucose (UA) (Negative) Urine Blood (Negative) Urine Bilirubin (Negative) Urine RBC (0-5) /hpf Urine WBC (0-5) /hpf Hyaline Casts (0-2) /lpf Urine Mucus (None) /hpf U Benzodiazepines Scrn (NotDetected) U Marijuana (THC) Screen (NotDetected) Assessment and Plan Assessment: 57 year old male with afib , non compliant with meds, alcohol abuse, last drink 6 days ago. presented due to altered mental status , code stroke activated. found to have afib with RVR and hypotension , required cardioversion, intubated due to agonal breathing, acute hypoxic and hypercapnic respiratory failure and severe acidosis resulting in acute metabolic encephalopathy .severe electrolytes derangement. patient is critical with guarded prognosis admitted to the ICU as inpatient with anticipated length of stay >2 midnight s afib with RVR, unstable with hypotension s/p cardioversion NSR start heparin drip cardiology consult check Echocardiogram initial troponins elevated , trending down resume metoprolol acute metabolic encephalopathy acute hypoxic hypercapnic respiratory failure s/p ET intubation vent support admission to the ICU pulmonary/ICU consult acute kidney injury electrolytes imbalance severe hypokalemia, severe hyperphosphatemia severe lactic acidosis hyperammonemia monitor electrolytes replace K follow up electrolytes monitor urine output IVF hydration with normal saline alcohol abuse , last drink 6 days ago monitor for signs of alcohol withdrawal patient on versed and fentanyl patient did not tolerate propofol due to hypotension full code DVT PPX on heparin drip for afib and elevated trops
[2022-08-17 04:46] LABS: INR 1.2 (<1.2); Prothrombin Time 12.8 sec (9.0-12.0)
[2022-08-17] MEDS: SODIUM CHLORIDE 0.9% 80 ML with fentaNYL (PF) 1,000 MCG IV SCH ×6 (04:56→16:28)
[2022-08-17 05:50] LABS: ABG Base Excess -4.6 mmol/L; ABG HCO3 22 mmol/L (21-25); ABG Oxygen Saturation 99.5 % (94-97); ABG PCO2 43 mmHg (35-45); ABG PH 7.31 (7.35-7.45); ABG PO2 203 mmHg (83-108); ABG TCO2 23 mmol/L (19-24); Allen Test Performed? Yes
[2022-08-17] MEDS: SODIUM CHLORIDE 0.9% 1,000 ML IV SCH ×2 (05:50→16:11)
[2022-08-17] MEDS: METOPROLOL TARTRATE 50 MG TAB PO SCH ×2 (06:04→21:47)
[2022-08-17 06:08] LABS: Glucose,Whole Blood 130 mg/dL (70-110)
--- NOTE | 2022-08-17 06:24 | XR ---
EXAMINATION TYPE: XR chest 1V portable DATE OF EXAM: 08/17/2022 CLINICAL HISTORY: Difficulty breathing progress study. TECHNIQUE: Single AP portable semiupright view of the chest is obtained. COMPARISON: Chest x-ray and CT from one day earlier. FINDINGS: Stable endotracheal and orogastric tubes. Lungs remain clear. Cardiac silhouette size stable and within normal limits. Partial visualization of surgical change in the cervical spine on current study. IMPRESSION: No acute pulmonary process. No significant change from one day earlier.
--- NOTE | 2022-08-17 06:59 | P.CNPUL ---
History of Present Illness Consult date: 08/17/22 Chief complaint: Altered mental status History of present illness: 57-year-old male patient with known history of alcoholism and known history of chronic into fibrillation. The patient arrived to the emergency department yesterday for altered mentation suspecting a possible stroke. EMS stated that the patient was at home, and he was in his normal self at around 7:30 PM. Subsequently at around 8 PM, he was found face down in bed unresponsive. In the emergency, the patient was found to be hypotensive. EMS was supporting his breathing by bagging and the patient was having agonal breathing. It was reported to us that the patient is an alcoholic and he was binge drinking. There is also history of emesis and apparently the patient was having significant amount of emesis and ultimately collapsed and he was unable to stand up anymore. In the emergency, the patient was found to have a heart rate of 220. Initial blood pressure was 50/30. He was having agonal breathing. He was not following any commands. Code stroke was activated. Patient was unable to protect his airway. At that point, he was intubated and he was given a 7 ET tube. He was given a total of 3 L of fluid normal saline bolus. CAT scan of the brain was done in addition to a CT angiogram of the head and the neck. The CAT scans were negative. Case was discussed with intervention neurology and no further treatment was done. Initial blood work showed a lactic acid level of 12.4. The patient also will was found to have a potassium level of 2.7. He was in acute kidney injury with a BUN of 52 and a creatinine of 3.6. Sodium level was at 141. Troponins were positive at levels of 0.3 and 0.2 respectively. AST was 191. He was 84 bilirubin was 3.7 calcium was 7.8. His white cell count was 17.2 with a hemoglobin 18.7. INR was 1.4 with a PT of 17.8 and a PTT of 23. Urine drug screen was positive for benzodiazepines and marijuana. Alcohol level was negative. UA was positive for protein, 10 WBCs, 8 RBCs. The chest x-ray was essentially clear. Posterior intubation chest x-ray showed adequate positioning of 82. Vision also has a G-tube in place. No evidence of any pneumothorax. Subsequent lactic acid level dropped down to 5.3. At this point in time, the patient is intubated on a mechanical ventilator. He is on a Versed drip running at 11 mg/m and fentanyl drip running at 2 Todd respiratory kilogram per hour. His assist-control mode of mechanical ventilation at the rate of 18 with a tidal volume of 400 FiO2 of 50% with a PEEP of 5. Most recent blood gas showed a pH of 7.31 with a pCO2 of 43 and pO2 of 203. IV fluids are c urrently in the form of normal saline at rate of 1 50 mL an hour. Urine output is adequate and the patient is producing white daryl urine. Repeat electrodes from today are still pending. He was placed on IV heparin. He is on no pressors for now. Note that the patient also had a CAT scan of the chest abdomen and pelvis in the emergency department that showed no significant abnormalities. Review of Systems ROS unobtainable: due to endotracheal tube Past Medical History Past Medical History: Atrial Fibrillation, Hyperlipidemia, Hypertension History of Any Multi-Drug Resistant Organisms: None Reported Past Surgical History: Appendectomy, Orthopedic Surgery, Tonsillectomy Past Psychological History: No Psychological Hx Reported Past Alcohol Use History: None Reported Past Drug Use History: None Reported - Past Family History family Additional Family Medical History / Comment(s): no CAD Medications and Allergies Home Medications Medication Instructions Recorded Confirmed Type Metoprolol Succinate (ER) [Toprol 100 mg PO DAILY 01/08/17 01/08/17 History Xl] Orphenadrine [Norflex] 100 mg PO Q12H #10 tablet.er 01/08/17 Rx Pravastatin Sodium [Pravachol] 10 mg PO DAILY 01/08/17 01/08/17 History predniSONE 50 mg PO DAILY #5 tab 01/08/17 Rx Cyclobenzaprine [Flexeril] 10 mg PO TID PRN #20 tablet 01/25/17 Rx Hydrocodone/Acetaminophen [[place] 2 each PO Q6HR PRN #20 tab 01/25/17 Rx 5-325] Ibuprofen [Motrin] 600 mg PO Q6HR PRN #20 tab 01/25/17 Rx Allergies Allergy/AdvReac Type Severity Reaction Status Date / Time Penicillins Allergy Unknown Verified 08/16/22 20:19 Childhood Physical Exam Vitals: Vital Signs Temp Pulse Resp BP Pulse Ox FiO2 08/17/22 06:00 108 H 21 100/59 97 50 08/17/22 05:30 107 H 21 93/80 96 50 08/17/22 05:00 110 H 23 91/72 96 50 08/17/22 04:30 111 H 24 105/73 94 L 50 08/17/22 04:00 98.3 F 109 H 24 95/70 96 50 08/17/22 03:45 50 08/17/22 03:43 50 08/17/22 03:40 60 08/17/22 03:30 107 H 20 92/81 96 60 08/17/22 03:00 124 H 22 103/57 96 60 08/17/22 02:30 102 H 22 93/76 96 60 08/17/22 02:00 101 H 22 93/76 96 60 08/17/22 01:37 60 08/17/22 01:30 98 28 H 88/64 96 60 08/17/22 01:00 105 H 28 H 123/66 96 70 08/17/22 00:51 70 08/17/22 00:00 91 31 H 114/87 98 08/16/22 23:11 93 18 108/93 100 08/16/22 23:00 101 H 18 80/56 98 08/16/22 22:00 102 H 18 130/84 98 70 08/16/22 21:17 100 08/16/22 21:14 104 H 16 131/79 99 08/16/22 20:45 110 H 18 104/65 100 08/16/22 20:41 197 H 18 63/26 100 08/16/22 20:40 100 08/16/22 20:37 203 H 7 L 57/42 08/16/22 20:36 184 H 1 L 95/45 08/16/22 20:26 168 H 16 87/69 89 L 08/16/22 20:16 97.0 F L 170 H 18 97/80 90 L Intake and Output 08/16/22 08/16/22 08/17/22 14:59 22:59 06:59 Intake Total 1442.680 Output Total 215 Balance 1227.680 Intake: IV 1300 Potassium Chloride 10 meq 400 In Water For Injection 1 100ml.bag @ 100 mls/hr IVPB Q1HR [facility] Rx#: [id number] Sodium Chloride 0.9% 1, 900 000 ml @ 150 mls/hr IV . Q6H40M [facility] Rx#:[id number] Intake, IV Titration 142.680 Amount Midazolam HCl 50 mg In 51.999 Sodium Chloride 0.9% 40 ml @ 1 MG/HR 1 mls/hr IV .Q24H [facility] Rx#:[id number] Sodium Chloride 0.9% 80 88.721 ml @ 2 MCG/KG/HR 16.329 mls/hr IV .Q6H8M [facility] with fentaNYL (PF) 1,000 mcg Rx#:[id number] propofoL 1,000 mg In 1.96 Empty Bag 1 bag @ 20 MCG/ KG/MIN 9.798 mls/hr IV . [id number] [facility] Rx#:[id number] Output: Urine 215 Other: Voiding Method Indwelling Catheter Weight 81.647 kg the patient is currently intubated on a mechanical ventilator, he is sedated. He has an orogastric and orotracheal tube in place. His calm and comfortable. He grimaces to deep painful stimulation. Once off sedation, he gets quite agitated. Head exam was generally normal. There was no scleral icterus or corneal arcus. Mucous membranes were moist. Neck was supple and without jugular venous distension, thyromegaly, or carotid bruits. Carotids were easily palpable bilaterally. There was no adenopathy. Lungs were clear to auscultation and percussion, and with normal diaphragmatic excursion. No wheezes or rales were noted. Cardiac exam revealed the PMI to be normally situated and sized. The rhythm was regular and no extrasystoles were noted during several minutes of auscultation. The first and second heart sounds were normal and physiologic splitting of the second heart sound was noted. There were no murmurs, rubs, clicks, or gallops. Abdominal exam revealed normal bowel sounds. The abdomen was soft, non-tender, and without masses, organomegaly, or appreciable enlargement of the abdominal aorta. Examination of the extremities revealed easily palpable radial, femoral and pedal pulses. There was no cyanosis, clubbing or edema. Examination of the skin revealed no evidence of significant rashes, suspicious appearing nevi or other concerning lesions. Neurologically, the patient is awake and alert and the patient does not have any focal neurological deficit. Cranial nerves are essentially intact. Results - Laboratory Findings CBC and BMP: 08/16/22 22:00 08/16/22 22:00 ABG ABG pH 7.31 (7.35-7.45) L 08/17/22 05:49 ABG pCO2 43 mmHg (35-45) 08/17/22 05:49 ABG pO2 203 mmHg (83-108) H 08/17/22 05:49 ABG O2 Saturation 99.5 % (94-97) H 08/17/22 05:49 PT/INR, D-dimer PT 12.8 sec (9.0-12.0) H 08/17/22 03:58 INR 1.2 (<1.2) H 08/17/22 03:58 Abnormal lab findings: Abnormal Labs 08/16/22 08/16/22 08/16/22 20:35 21:19 21:19 WBC RBC Hgb Hct Neutrophils # PT INR ABG pH ABG pCO2 ABG pO2 ABG HCO3 ABG Total CO2 ABG O2 Saturation VBG pH VBG pCO2 VBG HCO3 Potassium Carbon Dioxide BUN Creatinine Glucose POC Glucose (mg/dL) 128 H Plasma Lactic Acid Aiden Calcium Phosphorus Total Bilirubin AST ALT Ammonia Troponin I Urine Protein 2+ H Urine Glucose (UA) Trace H Urine Blood Moderate H Urine Bilirubin 1+ H Urine RBC 8 H Urine WBC 10 H Hyaline Casts 218 H Urine Mucus Many H U Benzodiazepines Scrn Detected H U Marijuana (THC) Screen Detected H 08/16/22 08/16/22 08/16/22 21:43 22:00 22:00 WBC 17.2 H RBC 5.95 H Hgb 18.7 H Hct 57.3 H* Neutrophils # 13.9 H PT INR ABG pH 7.13 L* ABG pCO2 50 H ABG pO2 240 H ABG HCO3 17 L ABG Total CO2 18 L ABG O2 Saturation 98.8 H VBG pH 7.12 L* VBG pCO2 54 H VBG HCO3 17 L Potassium Carbon Dioxide BUN Creatinine Glucose POC Glucose (mg/dL) Plasma Lactic Acid Aiden Calcium Phosphorus Total Bilirubin AST ALT Ammonia Troponin I Urine Protein Urine Glucose (UA) Urine Blood Urine Bilirubin Urine RBC Urine WBC Hyaline Casts Urine Mucus U Benzodiazepines Scrn U Marijuana (THC) Screen 08/16/22 08/16/22 08/16/22 22:00 22:00 22:00 WBC RBC Hgb Hct Neutrophils # PT 13.8 H INR 1.4 H ABG pH ABG pCO2 ABG pO2 ABG HCO3 ABG Total CO2 ABG O2 Saturation VBG pH VBG pCO2 VBG HCO3 Potassium 2.7 L* Carbon Dioxide 16 L BUN 52 H Creatinine 3.66 H Glucose 155 H POC Glucose (mg/dL) Plasma Lactic Acid Aiden Calcium 7.8 L Phosphorus Total Bilirubin 3.7 H AST 191 H ALT 84 H Ammonia Troponin I 0.304 H* Urine Protein Urine Glucose (UA) Urine Blood Urine Bilirubin Urine RBC Urine WBC Hyaline Casts Urine Mucus U Benzodiazepines Scrn U Marijuana (THC) Screen 08/16/22 08/17/22 08/17/22 22:00 00:52 01:05 WBC RBC Hgb Hct Neutrophils # PT INR ABG pH ABG pCO2 ABG pO2 ABG HCO3 ABG Total CO2 ABG O2 Saturation VBG pH VBG pCO2 VBG HCO3 Potassium Carbon Dioxide BUN Creatinine Glucose POC Glucose (mg/dL) 140 H Plasma Lactic Acid Aiden 12.4 H* 5.3 H* Calcium Phosphorus Total Bilirubin AST ALT Ammonia 81 H 31 H Troponin I Urine Protein Urine Glucose (UA) Urine Blood Urine Bilirubin Urine RBC Urine WBC Hyaline Casts Urine Mucus U Benzodiazepines Scrn U Marijuana (THC) Screen 08/17/22 08/17/22 08/17/22 01:05 01:15 03:58 WBC RBC Hgb Hct Neutrophils # PT 12.8 H INR 1.2 H ABG pH ABG pCO2 ABG pO2 ABG HCO3 ABG Total CO2 ABG O2 Saturation VBG pH VBG pCO2 VBG HCO3 Potassium Carbon Dioxide BUN Creatinine Glucose POC Glucose (mg/dL) Plasma Lactic Acid Aiden Calcium Phosphorus 9.3 H* Total Bilirubin AST ALT Ammonia Troponin I 0.248 H* Urine Protein Urine Glucose (UA) Urine Blood Urine Bilirubin Urine RBC Urine WBC Hyaline Casts Urine Mucus U Benzodiazepines Scrn U Marijuana (THC) Screen 08/17/22 08/17/22 05:49 06:07 WBC RBC Hgb Hct Neutrophils # PT INR ABG pH 7.31 L ABG pCO2 ABG pO2 203 H ABG HCO3 ABG Total CO2 ABG O2 Saturation 99.5 H VBG pH VBG pCO2 VBG HCO3 Potassium Carbon Dioxide BUN Creatinine Glucose POC Glucose (mg/dL) 130 H Plasma Lactic Acid Aiden Calcium Phosphorus Total Bilirubin AST ALT Ammonia Troponin I Urine Protein Urine Glucose (UA) Urine Blood Urine Bilirubin Urine RBC Urine WBC Hyaline Casts Urine Mucus U Benzodiazepines Scrn U Marijuana (THC) Screen - Diagnostic Findings Chest x-ray: image reviewed CT scan - chest: image reviewed Assessment and Plan Plan: Altered mental status, currently under investigation. No clinical evidence of stroke. The neuro workup has been negative thus far. The patient may have an underlying metabolic encephalopathy. He was hypotensive and severely acidotic at a time of presentation to the emergency department. Currently intubated on a mechanical ventilator Acute respiratory failure, this is a non-hypoxic respiratory failure, probably hypercapnic. The patient was unable to protect his airways in the emergency department as such the patient was intubated on a mechanical ventilator for now. He was quite acidotic at the time of admission and mildly hypercapnic. Chest x-ray is clear. Oxygenation is adequate for now Severe lactic acidosis, improving and the lactic acid level is down to 5.3 Hypotension, recovered and the patient was given a total of 3 L bolus and currently on normal saline at rate of 150 mL an hour Anion gap metabolic acidosis, being monitored Troponin leak, probably in association with major hemodynamic alteration in acidosis, type II ischemia. Alcoholism Acute kidney injury and the creatinine is up to 3.6, could be related to underlying intravascular volume depletion, currently being resuscitated with IV fluids Acute hypokalemia, awaiting follow-up labs History of itchy fibrillation, current rhythm is sinus Hypertension Hyperlipidemia Plan Continue ventilator support and dropped FiO2 down to 40% Awaiting follow-up electrodes from this morning of interest will be his level of acidosis and his potassium level and renal function. Altered obtain an ultrasound the kidneys to rule out hydronephrosis Keep the sedation for now with a combination of Versed and fentanyl Continue IV fluids in the form of normal saline at rate of 150 mL an hour Heparin subcu portably prophylaxis IV Protonix IV thiamine 100 mg every 24 hours Discontinue IV heparin and put the patient on Lovenox 40 mg for DVT prophylaxis subcu Check amylase and lipase Condition is critical. We'll continue to follow and make further recommendations based on his progress. Time with Patient: Greater than 30
[2022-08-17 08:09] LABS: Basophils # (A) 0.2 k/uL (0-0.2); Basophils % (A) 1 %; Eosinophils % (A) 0 %; Lymphocytes # (A) 2.9 k/uL (1.0-4.8); Lymphocytes % (A) 13 %; MCH 31.4 pg (25.0-35.0); Mean Platelet Volume 10.2; Monocytes # (A) 1.7 k/uL (0-1.0); Monocytes % (A) 7 %; Neutrophils # (A) 17.3 k/uL (1.3-7.7); Neutrophils % (A) 76 %; Platelet Count 134 k/uL (150-450); RBC 6.22 m/uL (4.30-5.90); RDW 13.6 % (11.5-15.5); WBC 22.9 k/uL (3.8-10.6)
[2022-08-17 08:10] LABS: Calcium 7.3 mg/dL (8.4-10.2)
[2022-08-17 08:12] LABS: HCT 59.1 % (39.0-53.0); HGB 19.5 gm/dL (13.0-17.5)
--- NOTE | 2022-08-17 08:21 | US ---
EXAMINATION TYPE: US kidneys/renal and bladder DATE OF EXAM: 08/17/2022 COMPARISON: CT from yesterday CLINICAL HISTORY: MANUEL. ICU patient. Bladder alexander catheter. EXAM MEASUREMENTS: Right Kidney: 11.2 x 4.5 x 5.8 cm Left Kidney: 10.3 x 5.1 x 5.8 cm Right Kidney: No hydronephrosis or masses seen Left Kidney: No hydronephrosis or masses seen Bladder: not well visualized due to alexander Bilateral Jets not seen due to alexander There is no evidence for hydronephrosis at this point in time. No nephrolithiasis is seen. No tawny s are identified. The urinary bladder is decompressed by Alexander catheter. IMPRESSION: No hydronephrosis seen bilaterally.
[2022-08-17 08:22] LABS: Potassium 4.2 mmol/L (3.5-5.1)
[2022-08-17 08:23] LABS: Magnesium 2.1 mg/dL (1.6-2.3); Phosphorus 8.4 mg/dL (2.5-4.5)
[2022-08-17] MEDS ORDERED: METOPROLOL SUCCINATE (ER) 50 MG TAB.ER.24H PO SCH (09:00)
[2022-08-17] MEDS ORDERED: SODIUM CHLORIDE 0.9% 1,000 ML IV ONE (09:07)
[2022-08-17] MEDS: DEXTROSE 5% IN WATER 1,000 ML with SODIUM BICARB (1 MEQ/ML) 150 ML IV SCH ×2 (09:08→17:24)
--- NOTE | 2022-08-17 09:18 | P.NPCON ---
History of Present Illness - Reason for Consult acute renal failure - History of Present Illness Reason for consultation: Acute kidney injury History of present illness: Patient is a 57-year-old male seen in renal consultation for acute kidney injury. Patient's creatinine in August 2018 was 1.0 and was elevated at 3.66-7 admission and is 2.75 today. Patient was found unresponsive at home. EMS was called and he was noted to be hypotensive. Patient was noted to be actively breathing and was subsequently intubated. Patient has history of fall: Abuse and it is noted that he was on a binge recently. Patient is currently intubated. He is not on vasopressors at this time. He did receive 3 L of n ormal saline on admission and is currently maintained on normal saline at 1 50 mL an hour. I do see Motrin and his home medication list but unable to determine how much she was actually taking. Patient is noted to be acidotic. Blood pressure is in the systolic 80s. He is on 40% FiO2. Vital signs are stable. Blood pressure on the lower side. General: Resting in bed. HEENT: Intubated. LUNGS: Breath sounds decreased. HEART: Rate and Rhythm are regular. ABDOMEN: Soft, no distention. EXTREMITITES: No edema. Past Medical History Past Medical History: Atrial Fibrillation, Hyperlipidemia, Hypertension History of Any Multi-Drug Resistant Organisms: None Reported Past Surgical History: Appendectomy, Orthopedic Surgery, Tonsillectomy Past Psychological History: No Psychological Hx Reported Past Alcohol Use History: None Reported Past Drug Use History: None Reported - Past Family History family Additional Family Medical History / Comment(s): no CAD Medications and Allergies Home Medications Medication Instructions Recorded Confirmed Type Metoprolol Succinate (ER) [Toprol 100 mg PO DAILY 01/08/17 01/08/17 History Xl] Orphenadrine [Norflex] 100 mg PO Q12H #10 tablet.er 01/08/17 Rx Pravastatin Sodium [Pravachol] 10 mg PO DAILY 01/08/17 01/08/17 History predniSONE 50 mg PO DAILY #5 tab 01/08/17 Rx Cyclobenzaprine [Flexeril] 10 mg PO TID PRN #20 tablet 01/25/17 Rx Hydrocodone/Acetaminophen [[place] 2 each PO Q6HR PRN #20 tab 01/25/17 Rx 5-325] Ibuprofen [Motrin] 600 mg PO Q6HR PRN #20 tab 01/25/17 Rx Allergies Allergy/AdvReac Type Severity Reaction Status Date / Time Penicillins Allergy Unknown Verified 08/16/22 20:19 Childhood Physical Exam Vitals: Vital Signs Temp Pulse Resp BP Pulse Ox FiO2 08/17/22 09:00 98 21 82/65 100 08/17/22 08:30 93 21 86/60 100 08/17/22 08:00 99.1 F 90 21 86/60 100 50 08/17/22 07:30 90 90/64 08/17/22 07:01 40 08/17/22 07:00 92 21 90/64 94 L 40 08/17/22 06:30 107 H 21 97/67 96 40 08/17/22 06:00 108 H 21 100/59 97 50 08/17/22 05:30 107 H 21 93/80 96 50 08/17/22 05:00 110 H 23 91/72 96 50 08/17/22 04:30 111 H 24 105/73 94 L 50 08/17/22 04:00 98.3 F 109 H 24 95/70 96 50 08/17/22 03:45 50 08/17/22 03:43 50 08/17/22 03:40 60 08/17/22 03:30 107 H 20 92/81 96 60 08/17/22 03:00 124 H 22 103/57 96 60 08/17/22 02:30 102 H 22 93/76 96 60 08/17/22 02:00 101 H 22 93/76 96 60 08/17/22 01:37 60 08/17/22 01:30 98 28 H 88/64 96 60 08/17/22 01:00 105 H 28 H 123/66 96 70 08/17/22 00:51 70 08/17/22 00:00 91 31 H 114/87 98 08/16/22 23:11 93 18 108/93 100 08/16/22 23:00 101 H 18 80/56 98 08/16/22 22:00 102 H 18 130/84 98 70 08/16/22 21:17 100 08/16/22 21:14 104 H 16 131/79 99 08/16/22 20:45 110 H 18 104/65 100 08/16/22 20:41 197 H 18 63/26 100 08/16/22 20:40 100 08/16/22 20:37 203 H 7 L 57/42 08/16/22 20:36 184 H 1 L 95/45 08/16/22 20:26 168 H 16 87/69 89 L 08/16/22 20:16 97.0 F L 170 H 18 97/80 90 L Intake and Output 08/16/22 08/17/22 08/17/22 22:59 06:59 14:59 Intake Total 1442.680 450 Output Total 215 80 Balance 1227.680 370 Intake: IV 1300 450 Potassium Chloride 10 meq 400 In Water For Injection 1 100ml.bag @ 100 mls/hr IVPB Q1HR [facility] Rx#: [id number] Sodium Chloride 0.9% 1, 900 450 000 ml @ 150 mls/hr IV . Q6H40M [facility] Rx#:[id number] Intake, IV Titration 142.680 Amount Midazolam HCl 50 mg In 51.999 Sodium Chloride 0.9% 40 ml @ 1 MG/HR 1 mls/hr IV .Q24H [facility] Rx#:[id number] Sodium Chloride 0.9% 80 88.721 ml @ 2 MCG/KG/HR 16.329 mls/hr IV .Q6H8M [facility] with fentaNYL (PF) 1,000 mcg Rx#:[id number] propofoL 1,000 mg In 1.96 Empty Bag 1 bag @ 20 MCG/ KG/MIN 9.798 mls/hr IV . [id number] [facility] Rx#:[id number] Output: Urine 215 80 Other: Voiding Method Indwelling Catheter Weight 81.647 kg Results - Lab Results Most recent lab results ABG pH 7.31 (7.35-7.45) L 08/17/22 05:49 ABG pCO2 43 mmHg (35-45) 08/17/22 05:49 ABG pO2 203 mmHg (83-108) H 08/17/22 05:49 ABG HCO3 22 mmol/L (21-25) 08/17/22 05:49 ABG O2 Saturation 99.5 % (94-97) H 08/17/22 05:49 Calcium 7.3 mg/dL (8.4-10.2) L 08/17/22 07:26 Phosphorus 8.4 mg/dL (2.5-4.5) H 08/17/22 07:26 Magnesium 2.1 mg/dL (1.6-2.3) 08/17/22 07:26 08/17/22 07:26 08/17/22 07:26 Assessment and Plan Plan: Assessment: 1. Acute kidney injury secondary to hemodynamic ATN. Creatinine 2.66 on admission and is 2.75 today. Patient received IV contrast for CT angiogram and CT of the chest abdomen and pelvis on 08/16/2022 which were negative. No hydronephrosis was noted. Creatinine in August 2018 was 1. 2. Alcohol withdrawal. 3. Metabolic acidosis secondary to acute kidney injury and lactic acidosis. 4. Hypokalemia from poor intake and intracellular shifting. Replaced. Better. Magnesium not low. 5. Altered mental status. ?Etiology. Plan: Change normal saline to bicarb drip. Check blood cultures. 1 L bolus of normal saline now. May need to initiate Levophed to maintain adequate map. Avoid nephrotoxins. Continue to monitor renal function and urine output. Thank you for the consultation. I will continue to follow this patient with you during his hospital stay.
[2022-08-17] MEDS: ENOXAPARIN 40 MG/0.4 ML SYRINGE SQ SCH (09:21)
[2022-08-17] MEDS: THIAMINE 100 MG in SODIUM CHLORIDE 0.9% 50 ML IVPB SCH ×2 (09:46→12:00)
[2022-08-17] MEDS: PANTOPRAZOLE 40 MG/10 ML VIAL IVP SCH ×2 (09:48→21:47)
[2022-08-17] MEDS: CHLORHEXIDINE GLUCONATE 15 ML CUP MUCOUS MEM SCH ×2 (09:48→21:47)
--- NOTE | 2022-08-17 11:25 | P.PN ---
Progress Note - Text Progress Note Date: 08/17/22 Hospitalist Interval Note Patient seen and examined at bedside. Vital signs reviewed General: Intubated and sedated Derm: warm, dry Head: atraumatic, normocephalic, symmetric Eyes: Pupils equal and reactive Mouth: no lip lesion, mucus membranes moist Cardiovascular: S1S2 reg, no murmur, positive posterior tibial pulse bilateral, Lungs: Rhonchorous breath sounds Abdominal: soft, nondistended, no rigidity, no appreciable organomegaly, NG tube in place with bleeding noted Ext: no gross muscle atrophy, no edema, no contractures Neuro: Sedated Psych: Unable to assess Assessment/Plan: Shock, likely hypovolemic A. fib with RVR status post cardioversion Acute metabolic encephalopathy Acute hypoxic and hypercapnic respiratory failure status post intubation Acute kidney injury Uremia Severe hypokalemia Severe hyperphosphatemia Hyperammonemia Elevated troponin High anion gap metabolic acidosis secondary to Severe lactic acidosis History of alcohol abuse - Continue ICU care - Wean pressors -Monitor urine output and renal function -Replete electrolytes -IV PPI twice a day -Gen. surgery consulted for possible upper GI bleed -Hold anticoagulation This is an update note for patient . There is no charge associated with this note.
[2022-08-17 11:59] LABS: Glucose,Whole Blood 144 mg/dL (70-110)
--- NOTE | 2022-08-17 12:03 | P.GSCN ---
History of Present Illness Consult date: 08/17/22 Reason for Consult: GI bleeding History of present illness: 57-year-old male in the ICU on the ventilator. Admitted to the hospital with mental status changes. Thought to possibly be related to alcohol withdrawal. Patient was having emesis. Patient with significant lactic acidosis which has improved. Underwent CT brain chest abdomen and pelvis. No abdominal source of sepsis noted at this time. Patient with an elevated hemoglobin suggesting dehydration. We were consulted this morning after the nursing staff noted the gastric aspirate changing from a dark brown to possibly a maroon color. No stools. Currently nasogastric aspirate is brownish. Patient taking Motrin and prednisone at home reportedly. Patient with history of atrial fibrillation but I do not see any anticoagulation at home. Review of Systems ROS unobtainable: due to endotracheal tube Past Medical History Past Medical History: Atrial Fibrillation, Hyperlipidemia, Hypertension History of Any Multi-Drug Resistant Organisms: None Reported Past Surgical History: Appendectomy, Orthopedic Surgery, Tonsillectomy Past Psychological History: No Psychological Hx Reported Past Alcohol Use History: None Reported Past Drug Use History: None Reported - Past Family History family Additional Family Medical History / Comment(s): no CAD Medications and Allergies Home Medications Medication Instructions Recorded Confirmed Type Metoprolol Succinate (ER) [Toprol 100 mg PO DAILY 01/08/17 01/08/17 History Xl] Orphenadrine [Norflex] 100 mg PO Q12H #10 tablet.er 01/08/17 Rx Pravastatin Sodium [Pravachol] 10 mg PO DAILY 01/08/17 01/08/17 History predniSONE 50 mg PO DAILY #5 tab 01/08/17 Rx Cyclobenzaprine [Flexeril] 10 mg PO TID PRN #20 tablet 01/25/17 Rx Hydrocodone/Acetaminophen [[place] 2 each PO Q6HR PRN #20 tab 01/25/17 Rx 5-325] Ibuprofen [Motrin] 600 mg PO Q6HR PRN #20 tab 01/25/17 Rx Allergies Allergy/AdvReac Type Severity Reaction Status Date / Time Penicillins Allergy Unknown Verified 08/16/22 20:19 Childhood Surgical - Exam Vital Signs Temp Pulse Resp BP Pulse Ox 97.0 F L 170 H 18 97/80 90 L 08/16/22 20:16 08/16/22 20:16 08/16/22 20:16 08/16/22 20:16 08/16/22 20:16 Physical exam: General: Well-developed, well-nourished HEENT: Normocephalic, sclerae nonicteric Abdomen: Nontender, mildly distended Extremities: No edema Neuro: Intubated Results - Labs 08/17/22 07:26 08/17/22 07:26 Abnormal Lab Results - Last 24 Hours (Table) 08/16/22 08/16/22 08/16/22 Range/Units 20:35 21:19 21:19 WBC (3.8-10.6) k/uL RBC (4.30-5.90) m/uL Hgb (13.0-17.5) gm/dL Hct (39.0-53.0) % Plt Count (150-450) k/uL Neutrophils # (1.3-7.7) k/uL Monocytes # (0-1.0) k/uL PT (9.0-12.0) sec INR (<1.2) ABG pH (7.35-7.45) ABG pCO2 (35-45) mmHg ABG pO2 (83-108) mmHg ABG HCO3 (21-25) mmol/L ABG Total CO2 (19-24) mmol/L ABG O2 Saturation (94-97) % VBG pH (7.31-7.41) VBG pCO2 (37-51) mmHg VBG HCO3 (24-28) mmol/L Potassium (3.5-5.1) mmol/L Chloride (98-107) mmol/L Carbon Dioxide (22-30) mmol/L BUN (9-20) mg/dL Creatinine (0.66-1.25) mg/dL Glucose (74-99) mg/dL POC Glucose (mg/dL) 128 H (70-110) mg/dL Plasma Lactic Acid Aiden (0.7-2.0) mmol/L Calcium (8.4-10.2) mg/dL Phosphorus (2.5-4.5) mg/dL Total Bilirubin (0.2-1.3) mg/dL AST (17-59) U/L ALT (4-49) U/L Ammonia (<30) umol/L Troponin I (0.000-0.034) ng/mL Amylase (30-110) U/L Lipase (23-300) U/L Urine Protein 2+ H (Negative) Urine Glucose (UA) Trace H (Negative) Urine Blood Moderate H (Negative) Urine Bilirubin 1+ H (Negative) Urine RBC 8 H (0-5) /hpf Urine WBC 10 H (0-5) /hpf Hyaline Casts 218 H (0-2) /lpf Urine Mucus Many H (None) /hpf U Benzodiazepines Scrn Detected H (NotDetected) U Marijuana (THC) Screen Detected H (NotDetected) 08/16/22 08/16/22 08/16/22 Range/Units 21:43 22:00 22:00 WBC 17.2 H (3.8-10.6) k/uL RBC 5.95 H (4.30-5.90) m/uL Hgb 18.7 H (13.0-17.5) gm/dL Hct 57.3 H* (39.0-53.0) % Plt Count (150-450) k/uL Neutrophils # 13.9 H (1.3-7.7) k/uL Monocytes # (0-1.0) k/uL PT (9.0-12.0) sec INR (<1.2) ABG pH 7.13 L* (7.35-7.45) ABG pCO2 50 H (35-45) mmHg ABG pO2 240 H (83-108) mmHg ABG HCO3 17 L (21-25) mmol/L ABG Total CO2 18 L (19-24) mmol/L ABG O2 Saturation 98.8 H (94-97) % VBG pH 7.12 L* (7.31-7.41) VBG pCO2 54 H (37-51) mmHg VBG HCO3 17 L (24-28) mmol/L Potassium (3.5-5.1) mmol/L Chloride (98-107) mmol/L Carbon Dioxide (22-30) mmol/L BUN (9-20) mg/dL Creatinine (0.66-1.25) mg/dL Glucose (74-99) mg/dL POC Glucose (mg/dL) (70-110) mg/dL Plasma Lactic Acid Aiden (0.7-2.0) mmol/L Calcium (8.4-10.2) mg/dL Phosphorus (2.5-4.5) mg/dL Total Bilirubin (0.2-1.3) mg/dL AST (17-59) U/L ALT (4-49) U/L Ammonia (<30) umol/L Troponin I (0.000-0.034) ng/mL Amylase (30-110) U/L Lipase (23-300) U/L Urine Protein (Negative) Urine Glucose (UA) (Negative) Urine Blood (Negative) Urine Bilirubin (Negative) Urine RBC (0-5) /hpf Urine WBC (0-5) /hpf Hyaline Casts (0-2) /lpf Urine Mucus (None) /hpf U Benzodiazepines Scrn (NotDetected) U Marijuana (THC) Screen (NotDetected) 08/16/22 08/16/22 08/16/22 Range/Units 22:00 22:00 22:00 WBC (3.8-10.6) k/uL RBC (4.30-5.90) m/uL Hgb (13.0-17.5) gm/dL Hct (39.0-53.0) % Plt Count (150-450) k/uL Neutrophils # (1.3-7.7) k/uL Monocytes # (0-1.0) k/uL PT 13.8 H (9.0-12.0) sec INR 1.4 H (<1.2) ABG pH (7.35-7.45) ABG pCO2 (35-45) mmHg ABG pO2 (83-108) mmHg ABG HCO3 (21-25) mmol/L ABG Total CO2 (19-24) mmol/L ABG O2 Saturation (94-97) % VBG pH (7.31-7.41) VBG pCO2 (37-51) mmHg VBG HCO3 (24-28) mmol/L Potassium 2.7 L* (3.5-5.1) mmol/L Chloride (98-107) mmol/L Carbon Dioxide 16 L (22-30) mmol/L BUN 52 H (9-20) mg/dL Creatinine 3.66 H (0.66-1.25) mg/dL Glucose 155 H (74-99) mg/dL POC Glucose (mg/dL) (70-110) mg/dL Plasma Lactic Acid Aiden (0.7-2.0) mmol/L Calcium 7.8 L (8.4-10.2) mg/dL Phosphorus (2.5-4.5) mg/dL Total Bilirubin 3.7 H (0.2-1.3) mg/dL AST 191 H (17-59) U/L ALT 84 H (4-49) U/L Ammonia (<30) umol/L Troponin I 0.304 H* (0.000-0.034) ng/mL Amylase (30-110) U/L Lipase (23-300) U/L Urine Protein (Negative) Urine Glucose (UA) (Negative) Urine Blood (Negative) Urine Bilirubin (Negative) Urine RBC (0-5) /hpf Urine WBC (0-5) /hpf Hyaline Casts (0-2) /lpf Urine Mucus (None) /hpf U Benzodiazepines Scrn (NotDetected) U Marijuana (THC) Screen (NotDetected) 08/16/22 08/17/22 08/17/22 Range/Units 22:00 00:52 01:05 WBC (3.8-10.6) k/uL RBC (4.30-5.90) m/uL Hgb (13.0-17.5) gm/dL Hct (39.0-53.0) % Plt Count (150-450) k/uL Neutrophils # (1.3-7.7) k/uL Monocytes # (0-1.0) k/uL PT (9.0-12.0) sec INR (<1.2) ABG pH (7.35-7.45) ABG pCO2 (35-45) mmHg ABG pO2 (83-108) mmHg ABG HCO3 (21-25) mmol/L ABG Total CO2 (19-24) mmol/L ABG O2 Saturation (94-97) % VBG pH (7.31-7.41) VBG pCO2 (37-51) mmHg VBG HCO3 (24-28) mmol/L Potassium (3.5-5.1) mmol/L Chloride (98-107) mmol/L Carbon Dioxide (22-30) mmol/L BUN (9-20) mg/dL Creatinine (0.66-1.25) mg/dL Glucose (74-99) mg/dL POC Glucose (mg/dL) 140 H (70-110) mg/dL Plasma Lactic Acid Aiden 12.4 H* 5.3 H* (0.7-2.0) mmol/L Calcium (8.4-10.2) mg/dL Phosphorus (2.5-4.5) mg/dL Total Bilirubin (0.2-1.3) mg/dL AST (17-59) U/L ALT (4-49) U/L Ammonia 81 H 31 H (<30) umol/L Troponin I (0.000-0.034) ng/mL Amylase (30-110) U/L Lipase (23-300) U/L Urine Protein (Negative) Urine Glucose (UA) (Negative) Urine Blood (Negative) Urine Bilirubin (Negative) Urine RBC (0-5) /hpf Urine WBC (0-5) /hpf Hyaline Casts (0-2) /lpf Urine Mucus (None) /hpf U Benzodiazepines Scrn (NotDetected) U Marijuana (THC) Screen (NotDetected) 08/17/22 08/17/22 08/17/22 Range/Units 01:05 01:15 03:58 WBC (3.8-10.6) k/uL RBC (4.30-5.90) m/uL Hgb (13.0-17.5) gm/dL Hct (39.0-53.0) % Plt Count (150-450) k/uL Neutrophils # (1.3-7.7) k/uL Monocytes # (0-1.0) k/uL PT 12.8 H (9.0-12.0) sec INR 1.2 H (<1.2) ABG pH (7.35-7.45) ABG pCO2 (35-45) mmHg ABG pO2 (83-108) mmHg ABG HCO3 (21-25) mmol/L ABG Total CO2 (19-24) mmol/L ABG O2 Saturation (94-97) % VBG pH (7.31-7.41) VBG pCO2 (37-51) mmHg VBG HCO3 (24-28) mmol/L Potassium (3.5-5.1) mmol/L Chloride (98-107) mmol/L Carbon Dioxide (22-30) mmol/L BUN (9-20) mg/dL Creatinine (0.66-1.25) mg/dL Glucose (74-99) mg/dL POC Glucose (mg/dL) (70-110) mg/dL Plasma Lactic Acid Aiden (0.7-2.0) mmol/L Calcium (8.4-10.2) mg/dL Phosphorus 9.3 H* (2.5-4.5) mg/dL Total Bilirubin (0.2-1.3) mg/dL AST (17-59) U/L ALT (4-49) U/L Ammonia (<30) umol/L Troponin I 0.248 H* (0.000-0.034) ng/mL Amylase (30-110) U/L Lipase (23-300) U/L Urine Protein (Negative) Urine Glucose (UA) (Negative) Urine Blood (Negative) Urine Bilirubin (Negative) Urine RBC (0-5) /hpf Urine WBC (0-5) /hpf Hyaline Casts (0-2) /lpf Urine Mucus (None) /hpf U Benzodiazepines Scrn (NotDetected) U Marijuana (THC) Screen (NotDetected) 08/17/22 08/17/22 08/17/22 Range/Units 05:49 06:07 07:26 WBC 22.9 H (3.8-10.6) k/uL RBC 6.22 H (4.30-5.90) m/uL Hgb 19.5 H* (13.0-17.5) gm/dL Hct 59.1 H* (39.0-53.0) % Plt Count 134 L (150-450) k/uL Neutrophils # 17.3 H (1.3-7.7) k/uL Monocytes # 1.7 H (0-1.0) k/uL PT (9.0-12.0) sec INR (<1.2) ABG pH 7.31 L (7.35-7.45) ABG pCO2 (35-45) mmHg ABG pO2 203 H (83-108) mmHg ABG HCO3 (21-25) mmol/L ABG Total CO2 (19-24) mmol/L ABG O2 Saturation 99.5 H (94-97) % VBG pH (7.31-7.41) VBG pCO2 (37-51) mmHg VBG HCO3 (24-28) mmol/L Potassium (3.5-5.1) mmol/L Chloride (98-107) mmol/L Carbon Dioxide (22-30) mmol/L BUN (9-20) mg/dL Creatinine (0.66-1.25) mg/dL Glucose (74-99) mg/dL POC Glucose (mg/dL) 130 H (70-110) mg/dL Plasma Lactic Acid Aiden (0.7-2.0) mmol/L Calcium (8.4-10.2) mg/dL Phosphorus (2.5-4.5) mg/dL Total Bilirubin (0.2-1.3) mg/dL AST (17-59) U/L ALT (4-49) U/L Ammonia (<30) umol/L Troponin I (0.000-0.034) ng/mL Amylase (30-110) U/L Lipase (23-300) U/L Urine Protein (Negative) Urine Glucose (UA) (Negative) Urine Blood (Negative) Urine Bilirubin (Negative) Urine RBC (0-5) /hpf Urine WBC (0-5) /hpf Hyaline Casts (0-2) /lpf Urine Mucus (None) /hpf U Benzodiazepines Scrn (NotDetected) U Marijuana (THC) Screen (NotDetected) 08/17/22 08/17/22 08/17/22 Range/Units 07:26 07:26 11:58 WBC (3.8-10.6) k/uL RBC (4.30-5.90) m/uL Hgb (13.0-17.5) gm/dL Hct (39.0-53.0) % Plt Count (150-450) k/uL Neutrophils # (1.3-7.7) k/uL Monocytes # (0-1.0) k/uL PT (9.0-12.0) sec INR (<1.2) ABG pH (7.35-7.45) ABG pCO2 (35-45) mmHg ABG pO2 (83-108) mmHg ABG HCO3 (21-25) mmol/L ABG Total CO2 (19-24) mmol/L ABG O2 Saturation (94-97) % VBG pH (7.31-7.41) VBG pCO2 (37-51) mmHg VBG HCO3 (24-28) mmol/L Potassium (3.5-5.1) mmol/L Chloride 109 H (98-107) mmol/L Carbon Dioxide 16 L (22-30) mmol/L BUN 61 H (9-20) mg/dL Creatinine 2.75 H (0.66-1.25) mg/dL Glucose 112 H (74-99) mg/dL POC Glucose (mg/dL) 144 H (70-110) mg/dL Plasma Lactic Acid Aiden 3.1 H* (0.7-2.0) mmol/L Calcium 7.3 L (8.4-10.2) mg/dL Phosphorus 8.4 H (2.5-4.5) mg/dL Total Bilirubin (0.2-1.3) mg/dL AST (17-59) U/L ALT (4-49) U/L Ammonia (<30) umol/L Troponin I (0.000-0.034) ng/mL Amylase 416 H* (30-110) U/L Lipase 590 H (23-300) U/L Urine Protein (Negative) Urine Glucose (UA) (Negative) Urine Blood (Negative) Urine Bilirubin (Negative) Urine RBC (0-5) /hpf Urine WBC (0-5) /hpf Hyaline Casts (0-2) /lpf Urine Mucus (None) /hpf U Benzodiazepines Scrn (NotDetected) U Marijuana (THC) Screen (NotDetected) Microbiology - Last 24 Hours (Table) 08/16/22 20:37 Blood Culture - Final Blood Diabetes panel 08/16/22 08/17/22 Range/Units 22:00 07:26 Sodium 141 143 (137-145) mmol/L Potassium 2.7 L* 4.2 (3.5-5.1) mmol/L Chloride 98 109 H (98-107) mmol/L Carbon Dioxide 16 L 16 L (22-30) mmol/L BUN 52 H 61 H (9-20) mg/dL Creatinine 3.66 H 2.75 H (0.66-1.25) mg/dL Glucose 155 H 112 H (74-99) mg/dL Calcium 7.8 L 7.3 L (8.4-10.2) mg/dL AST 191 H (17-59) U/L ALT 84 H (4-49) U/L Alkaline Phosphatase 85 (38-126) U/L Total Protein 6.9 (6.3-8.2) g/dL Albumin 3.9 (3.5-5.0) g/dL Calcium panel 08/16/22 08/17/22 08/17/22 Range/Units 22:00 01:05 07:26 Calcium 7.8 L 7.3 L (8.4-10.2) mg/dL Phosphorus 9.3 H* 8.4 H (2.5-4.5) mg/dL Albumin 3.9 (3.5-5.0) g/dL Pituitary panel 08/16/22 08/17/22 Range/Units 22:00 07:26 Sodium 141 143 (137-145) mmol/L Potassium 2.7 L* 4.2 (3.5-5.1) mmol/L Chloride 98 109 H (98-107) mmol/L Carbon Dioxide 16 L 16 L (22-30) mmol/L BUN 52 H 61 H (9-20) mg/dL Creatinine 3.66 H 2.75 H (0.66-1.25) mg/dL Glucose 155 H 112 H (74-99) mg/dL Calcium 7.8 L 7.3 L (8.4-10.2) mg/dL Adrenal panel 08/16/22 08/17/22 Range/Units 22:00 07:26 Sodium 141 143 (137-145) mmol/L Potassium 2.7 L* 4.2 (3.5-5.1) mmol/L Chloride 98 109 H (98-107) mmol/L Carbon Dioxide 16 L 16 L (22-30) mmol/L BUN 52 H 61 H (9-20) mg/dL Creatinine 3.66 H 2.75 H (0.66-1.25) mg/dL Glucose 155 H 112 H (74-99) mg/dL Calcium 7.8 L 7.3 L (8.4-10.2) mg/dL Total Bilirubin 3.7 H (0.2-1.3) mg/dL AST 191 H (17-59) U/L ALT 84 H (4-49) U/L Alkaline Phosphatase 85 (38-126) U/L Total Protein 6.9 (6.3-8.2) g/dL Albumin 3.9 (3.5-5.0) g/dL Assessment and Plan (1) GI bleed Narrative/Plan: 57-year-old male with suspected upper GI bleed. Currently the gastric aspirate is nonbloody. This may be related to gastric suction trauma. No plans for endoscopy at this time. We'll follow closely with you. Current Visit: Yes Status: Acute Code(s): K92.2 - GASTROINTESTINAL HEMORRHAGE, UNSPECIFIED SNOMED Code(s): 49942904
--- NOTE | 2022-08-17 13:06 | P.CRDCN ---
History of Present Illness Consult date: 08/17/22 Reason for Consult (text): Tachycardia History of present illness: This is Conner Crook NP, I'm dictating on behalf of Dr. Alfaro's H&P and A&P The patient was interviewed and examined. HPI: Patient is a 57-year-old male who presented to the hospital with apparent respiratory failure and unresponsiveness. The history and physicals obtained from records, as the patient is currently intubated and unresponsive. According to the records the patient was found by family after a few episodes of vomiting to be unresponsive facedown on his bed. EMS was called and the patient was transported to the hospital. During transportation, EMS had to bag the patient due to agonal respirations. In the emergency department he was continued found to be unresponsive as well as unable to support his respiratory status, so he was intubated. Multiple imaging studies were completed with no obvious acute cause. It is reported the patient is a significant alcoholic and had not had anything to drink for approximately 6 days. Patient was found at the time to be severely tachycardic in the emergency department. This appeared to be A. fib with RVR, the patient was cardioverted in the emergency department successfully. He is seen today in the ICU still ventilated and sedated. ROS: Unable to be completed due to intubation and sedation. EXAMINATION: GENERAL: Well-nourished. NECK: Supple without JVD or thyromegaly. LUNGS: Breath sounds clear to auscultation bilaterally. Respiration equal and unlabored. No wheezes, rales or rhonchi. HEART: Regular rate and rhythm without murmurs, rubs or gallops. S1 and S2 heard. EXTREMITIES: No edema. No clubbing or cyanosis. Peripheral pulses intact and strong. REVIEW OF LABS, ECG & MEDICAL DATA: LABS: White count 22.9, hemoglobin 19.5, platelets 134, arterial blood gas-pH 7.31, CO2 43, O2 203, HCO3 22; sodium 143, potassium 4.2, B1 61, creatinine 2.75, lactic acid 3.1, calcium 7.3, phosphorus 8.4, magnesium 2.1, amylase 416, lipase 590, total bilirubin 3.7, AST 191, ALTs 84, ammonia 81 troponin 2-0.304, 0.248 EKG: Initial EKG shows sinus tachycardia heart rate 109 IMAGING: CT of the brain without contrast dated 08/16/2022 demonstrates mild cerebral atrophy, no acute intracranial abnormality, no adverse change compared to old exam. CT angiogram of the head and neck dated 08/16/[address] and agreement of the brain, mild plaque at the carotid artery bifurc ations, no evidence of hemodynamic arterial stenosis in the neck. CT of the chest, abdomen, and pelvis with contrast dated 08/16/2022 demonstrates no significant abnormality of the chest, abdomen, or pelvis. Chest x-ray dated 08/16/2022 demonstrates no active cardiopulmonary disease, normal heart. Ultrasound of the abdomen and bladder dated 08/17/2022 demonstrates no hydronephrosis bilaterally. VITALS: Temp 98.5, pulse 93, respirations 16, blood pressure 92/71, O2 saturation 97% on mechanical ventilation IMPRESSION: 1. Acute alcohol withdrawal 2. Sinus tachycardia secondary to acute hypoxic respiratory failure, currently improved 3. Elevated troponins, likely secondary to hypoxic respiratory failure PLAN: Patient's heart rate is currently under control. Continue current medications as prescribed. Further recommendations based on the patient's clinical course. Thank you for the consult and allowing us to participate in the care of this patient. Past Medical History Past Medical History: Atrial Fibrillation, Hyperlipidemia, Hypertension History of Any Multi-Drug Resistant Organisms: None Reported Past Surgical History: Appendectomy, Orthopedic Surgery, Tonsillectomy Past Psychological History: No Psychological Hx Reported Past Alcohol Use History: None Reported Past Drug Use History: None Reported - Past Family History family Additional Family Medical History / Comment(s): no CAD Medications and Allergies Home Medications Medication Instructions Recorded Confirmed Type Metoprolol Succinate (ER) [Toprol 100 mg PO DAILY 01/08/17 01/08/17 History Xl] Orphenadrine [Norflex] 100 mg PO Q12H #10 tablet.er 01/08/17 Rx Pravastatin Sodium [Pravachol] 10 mg PO DAILY 01/08/17 01/08/17 History predniSONE 50 mg PO DAILY #5 tab 01/08/17 Rx Cyclobenzaprine [Flexeril] 10 mg PO TID PRN #20 tablet 01/25/17 Rx Hydrocodone/Acetaminophen [[place] 2 each PO Q6HR PRN #20 tab 01/25/17 Rx 5-325] Ibuprofen [Motrin] 600 mg PO Q6HR PRN #20 tab 01/25/17 Rx Allergies Allergy/AdvReac Type Severity Reaction Status Date / Time Penicillins Allergy Unknown Verified 08/16/22 20:19 Childhood Physical Exam Vitals: Vital Signs Temp Pulse Resp BP Pulse Ox FiO2 08/17/22 12:00 98.5 F 93 16 92/71 97 08/17/22 11:30 91 23 90/65 98 08/17/22 11:00 90 20 81/65 99 08/17/22 10:37 40 08/17/22 10:30 90 20 82/58 100 08/17/22 10:00 89 21 86/66 100 40 08/17/22 09:30 92 20 83/65 100 08/17/22 09:00 98 21 82/65 100 08/17/22 08:30 93 21 86/60 100 08/17/22 08:00 99.1 F 90 21 86/60 100 50 08/17/22 07:30 90 90/64 08/17/22 07:01 40 08/17/22 07:00 92 21 90/64 94 L 40 08/17/22 06:30 107 H 21 97/67 96 40 08/17/22 06:00 108 H 21 100/59 97 50 08/17/22 05:30 107 H 21 93/80 96 50 08/17/22 05:00 110 H 23 91/72 96 50 08/17/22 04:30 111 H 24 105/73 94 L 50 08/17/22 04:00 98.3 F 109 H 24 95/70 96 50 08/17/22 03:45 50 08/17/22 03:43 50 08/17/22 03:40 60 08/17/22 03:30 107 H 20 92/81 96 60 08/17/22 03:00 124 H 22 103/57 96 60 08/17/22 02:30 102 H 22 93/76 96 60 08/17/22 02:00 101 H 22 93/76 96 60 08/17/22 01:37 60 08/17/22 01:30 98 28 H 88/64 96 60 08/17/22 01:00 105 H 28 H 123/66 96 70 08/17/22 00:51 70 08/17/22 00:00 91 31 H 114/87 98 08/16/22 23:11 93 18 108/93 100 08/16/22 23:00 101 H 18 80/56 98 08/16/22 22:00 102 H 18 130/84 98 70 08/16/22 21:17 100 08/16/22 21:14 104 H 16 131/79 99 08/16/22 20:45 110 H 18 104/65 100 08/16/22 20:41 197 H 18 63/26 100 08/16/22 20:40 100 08/16/22 20:37 203 H 7 L 57/42 08/16/22 20:36 184 H 1 L 95/45 08/16/22 20:26 168 H 16 87/69 89 L 08/16/22 20:16 97.0 F L 170 H 18 97/80 90 L Intake and Output 08/16/22 08/17/22 08/17/22 22:59 06:59 14:59 Intake Total 5082.241 3685.79 Output Total 215 320 Balance 4011.585 7824.79 Intake: IV 1300 1950 Dextrose 5% in Water 1, 450 000 ml @ 150 mls/hr IV . Q7H40M [facility] with Sodium Bicarb (1 Meq/ml) 150 ml Rx#:[id number] Potassium Chloride 10 meq 400 In Water For Injection 1 100ml.bag @ 100 mls/hr IVPB Q1HR [facility] Rx#: [id number] Sodium Chloride 0.9% 1, 900 450 000 ml @ 150 mls/hr IV . Q6H40M [facility] Rx#:[id number] Sodium Chloride 0.9% 1, 1000 000 ml @ 999 mls/hr IV . Q1H1M [facility] Rx#:[id number] Thiamine 100 mg In Sodium 50 Chloride 0.9% 50 ml @ 100 mls/hr IVPB Q24HR [facility] Rx#:[id number] Intake, IV Titration 142.680 148.79 Amount Midazolam HCl 50 mg In 51.999 50 Sodium Chloride 0.9% 40 ml @ 1 MG/HR 1 mls/hr IV .Q24H [facility] Rx#:[id number] Sodium Chloride 0.9% 80 88.721 98.79 ml @ 2 MCG/KG/HR 16.329 mls/hr IV .Q6H8M [place] with fentaNYL (PF) 1,000 mcg Rx#:[id number] propofoL 1,000 mg In 1.96 Empty Bag 1 bag @ 20 MCG/ KG/MIN 9.798 mls/hr IV . [id number] [facility] Rx#:[id number] Output: Urine 215 320 Other: Voiding Method Indwelling Catheter Weight 81.647 kg Results 08/17/22 07:26 08/17/22 07:26 Cardiac Enzymes 08/16/22 08/16/22 08/17/22 Range/Units 22:00 22:00 01:15 AST 191 H (17-59) U/L Troponin I 0.304 H* 0.248 H* (0.000-0.034) ng/mL Coagulation 08/16/22 08/17/22 Range/Units 22:00 03:58 PT 13.8 H 12.8 H (9.0-12.0) sec APTT 23.5 (22.0-30.0) sec CBC 08/16/22 08/17/22 Range/Units 22:00 07:26 WBC 17.2 H 22.9 H (3.8-10.6) k/uL RBC 5.95 H 6.22 H (4.30-5.90) m/uL Hgb 18.7 H 19.5 H* (13.0-17.5) gm/dL Hct 57.3 H* 59.1 H* (39.0-53.0) % Plt Count 150 134 L (150-450) k/uL Comprehensive Metabolic Panel 08/16/22 08/17/22 Range/Units 22:00 07:26 Sodium 141 143 (137-145) mmol/L Potassium 2.7 L* 4.2 (3.5-5.1) mmol/L Chloride 98 109 H (98-107) mmol/L Carbon Dioxide 16 L 16 L (22-30) mmol/L BUN 52 H 61 H (9-20) mg/dL Creatinine 3.66 H 2.75 H (0.66-1.25) mg/dL Glucose 155 H 112 H (74-99) mg/dL Calcium 7.8 L 7.3 L (8.4-10.2) mg/dL AST 191 H (17-59) U/L ALT 84 H (4-49) U/L Alkaline Phosphatase 85 (38-126) U/L Total Protein 6.9 (6.3-8.2) g/dL Albumin 3.9 (3.5-5.0) g/dL Current Medications Generic Name Dose Route Start Last Admin Trade Name Freq PRN Reason Stop Dose Admin Chlorhexidine Gluconate 15 ml 08/17/22 09:00 08/17/22 09:48 Chlorhexidine Gluconate 15 Ml Cup MUCOUS MEM 15 ml BID [facility] Administration Enoxaparin Sodium 40 mg 08/17/22 09:00 08/17/22 09:21 Enoxaparin 40 Mg/0.4 Ml Syringe SQ Not Given DAILY [facility] Sodium Chloride 1,000 mls @ 150 mls/hr 08/16/22 23:00 08/17/22 05:50 Saline 0.9% IV 150 mls/hr .Q6H40M [facility] Administration Fentanyl Citrate 1,000 mcg/ 100 mls @ 16.329 mls/hr 08/16/22 23:30 08/17/22 10:59 Sodium Chloride IV 2 mcg/kg/hr .Q6H8M [facility] 16.329 mls/hr Administration 2 MCG/KG/HR Midazolam HCl 50 mg/ Sodium 50 mls @ 1 mls/hr 08/16/22 23:30 08/17/22 10:12 Chloride IV 11 mg/hr .Q24H [facility] 11 mls/hr Administration Protocol 1 MG/HR Norepinephrine Bitartrate 4 mg 254 mls @ 9.332 mls/hr 08/17/22 02:00 08/17/22 02:42 / Sodium Chloride IV Not Given .Q24H [facility] Protocol 0.03 MCG/KG/MIN Thiamine HCl 100 mg/ Sodium 51 mls @ 100 mls/hr 08/17/22 09:00 08/17/22 12:00 Chloride IVPB 100 mls/hr Q24HR [facility] Administration Sodium Bicarbonate 150 ml/ 1,150 mls @ 150 mls/hr 08/17/22 08:30 08/17/22 09:08 Dextrose/Water IV 150 mls/hr .Q7H40M [facility] Administration Metoprolol Tartrate 50 mg 08/17/22 09:00 08/17/22 06:04 Metoprolol Tartrate 50 Mg Tab PO 50 mg BID [facility] Administration Naloxone HCl 0.2 mg 08/16/22 23:41 Naloxone 0.4 Mg/Ml 1 Ml Vial IV Q2M PRN Opioid Reversal Pantoprazole Sodium 40 mg 08/17/22 09:30 08/17/22 09:48 Pantoprazole 40 Mg/10 Ml Vial IVP 40 mg BID [facility] Administration Intake and Output 08/16/22 08/17/22 08/17/22 22:59 06:59 14:59 Intake Total 3048.150 5955.79 Output Total 215 320 Balance 3864.534 1490.79 Intake: IV 1300 1950 Dextrose 5% in Water 1, 450 000 ml @ 150 mls/hr IV . Q7H40M [facility] with Sodium Bicarb (1 Meq/ml) 150 ml Rx#:[id number] Potassium Chloride 10 meq 400 In Water For Injection 1 100ml.bag @ 100 mls/hr IVPB Q1HR [facility] Rx#: [id number] Sodium Chloride 0.9% 1, 900 450 000 ml @ 150 mls/hr IV . Q6H40M [facility] Rx#:[id number] Sodium Chloride 0.9% 1, 1000 000 ml @ 999 mls/hr IV . Q1H1M [facility] Rx#:[id number] Thiamine 100 mg In Sodium 50 Chloride 0.9% 50 ml @ 100 mls/hr IVPB Q24HR [facility] Rx#:[id number] Intake, IV Titration 142.680 148.79 Amount Midazolam HCl 50 mg In 51.999 50 Sodium Chloride 0.9% 40 ml @ 1 MG/HR 1 mls/hr IV .Q24H [facility] Rx#:[id number] Sodium Chloride 0.9% 80 88.721 98.79 ml @ 2 MCG/KG/HR 16.329 mls/hr IV .Q6H8M [facility] with fentaNYL (PF) 1,000 mcg Rx#:[id number] propofoL 1,000 mg In 1.96 Empty Bag 1 bag @ 20 MCG/ KG/MIN 9.798 mls/hr IV . [id number] [facility] Rx#:[id number] Output: Urine 215 320 Other: Voiding Method Indwelling Catheter Weight 81.647 kg 08/17/22 07:26 08/17/22 07:26
[2022-08-17] MEDS ORDERED: VANCOMYCIN IV PER PHARMACY 1 EACH MISC MISCELLANE PRN (14:51)
[2022-08-17] MEDS ORDERED: VANCOMYCIN 1,500 MG in SODIUM CHLORIDE 0.9% 500 ML 500 ML IVPB SCH (15:00)
[2022-08-17 18:02] LABS: Glucose,Whole Blood 153 mg/dL (70-110)
[2022-08-17] MEDS: fentaNYL (PF) 2,500 MCG in SODIUM CHLORIDE 0.9% 200 ML IV SCH (20:24)
[2022-08-17] MEDS: MIDAZOLAM HCL 200 MG in SODIUM CHLORIDE 0.9% 60 ML IV SCH (20:31)
[2022-08-18 00:40] LABS: Glucose,Whole Blood 131 mg/dL (70-110)
[2022-08-18] MEDS: DEXTROSE 5% IN WATER 1,000 ML with SODIUM BICARB (1 MEQ/ML) 150 ML IV SCH (00:51)
[2022-08-18] MEDS: fentaNYL (PF) 2,500 MCG in SODIUM CHLORIDE 0.9% 200 ML IV SCH ×3 (02:40→15:30)
[2022-08-18 06:03] LABS: ABG Base Excess 15.5 mmol/L; ABG HCO3 39 mmol/L (21-25); ABG Oxygen Saturation 98.2 % (94-97); ABG PCO2 54 mmHg (35-45); ABG PH 7.47 (7.35-7.45); ABG PO2 90 mmHg (83-108); ABG TCO2 41 mmol/L (19-24); Allen Test Performed? Yes
[2022-08-18 06:29] LABS: Calcium 7.1 mg/dL (8.4-10.2); Magnesium 1.8 mg/dL (1.6-2.3); Potassium 3.3 mmol/L (3.5-5.1); Total Bilirubin 2.3 mg/dL (0.2-1.3); Total Protein 5.7 g/dL (6.3-8.2)
[2022-08-18 06:38] LABS: Basophils # (A) 0.1 k/uL (0-0.2); Basophils % (A) 1 %; Eosinophils # (A) 0.1 k/uL (0-0.7); Eosinophils % (A) 0 %; HCT 49.3 % (39.0-53.0); Lymphocytes # (A) 1.7 k/uL (1.0-4.8); Lymphocytes % (A) 12 %; MCH 30.9 pg (25.0-35.0); MCHC 33.3 g/dL (31.0-37.0); MCV 92.8 fL (80.0-100.0); Mean Platelet Volume 12.9; Monocytes # (A) 1.2 k/uL (0-1.0); Monocytes % (A) 8 %; Neutrophils # (A) 10.8 k/uL (1.3-7.7); Neutrophils % (A) 76 %; RBC 5.31 m/uL (4.30-5.90); RDW 13.8 % (11.5-15.5); WBC 14.3 k/uL (3.8-10.6)
[2022-08-18 06:39] LABS: Glucose,Whole Blood 144 mg/dL (70-110)
[2022-08-18 06:48] LABS: HGB 16.4 gm/dL (13.0-17.5)
--- NOTE | 2022-08-18 07:01 | P.PN ---
Subjective Progress Note Date: 08/18/22 57-year-old male patient with known history of alcoholism and known history of chronic into fibrillation. The patient arrived to the emergency department yesterday for altered mentation suspecting a possible stroke. EMS stated that the patient was at home, and he was in his normal self at around 7:30 PM. Subsequently at around 8 PM, he was found face down in bed unresponsive. In the emergency, the patient was found to be hypotensive. EMS was supporting his breathing by bagging and the patient was having agonal breathing. It was reported to us that the patient is an alcoholic and he was binge drinking. There is also history of emesis and apparently the patient was having significant amount of emesis and ultimately collapsed and he was unable to stand up anymore. In the emergency, the patient was found to have a heart rate of 220. Initial blood pressure was 50/30. He was having agonal breathing. He was not following any commands. Code stroke was activated. Patient was unable to p rotect his airway. At that point, he was intubated and he was given a 7 ET tube. He was given a total of 3 L of fluid normal saline bolus. CAT scan of the brain was done in addition to a CT angiogram of the head and the neck. The CAT scans were negative. Case was discussed with intervention neurology and no further treatment was done. Initial blood work showed a lactic acid level of 12.4. The patient also will was found to have a potassium level of 2.7. He was in acute kidney injury with a BUN of 52 and a creatinine of 3.6. Sodium level was at 141. Troponins were positive at levels of 0.3 and 0.2 respectively. AST was 191. He was 84 bilirubin was 3.7 calcium was 7.8. His white cell count was 17.2 with a hemoglobin 18.7. INR was 1.4 with a PT of 17.8 and a PTT of 23. Urine drug screen was positive for benzodiazepines and marijuana. Alcohol level was negative. UA was positive for protein, 10 WBCs, 8 RBCs. The chest x-ray was essentially clear. Posterior intubation chest x-ray showed adequate positioning of 82. Vision also has a G-tube in place. No evidence of any p neumothorax. Subsequent lactic acid level dropped down to 5.3. At this point in time, the patient is intubated on a mechanical ventilator. He is on a Versed drip running at 11 mg/m and fentanyl drip running at 2 Todd respiratory kilogram per hour. His assist-control mode of mechanical ventilation at the rate of 18 with a tidal volume of 400 FiO2 of 50% with a PEEP of 5. Most recent blood gas showed a pH of 7.31 with a pCO2 of 43 and pO2 of 203. IV fluids are currently in the form of normal saline at rate of 1 50 mL an hour. Urine output is adequate and the patient is producing white daryl urine. Repeat electrodes from today are still pending. He was placed on IV heparin. He is on no pressors for now. Note that the patient also had a CAT scan of the chest abdomen and pelvis in the emergency department that showed no significant abnormalities. On today's evaluation of 08/18/2022, the patient is still intubated on a mechanical ventilator. He is very much dependent on sedation as the patient is quite agitated once off sedation. This morning, he is on a combination of Trista sed at 40 mg an hour and is also on fentanyl and at 4 mcg/kg/h. I was told by the nursing staff that he gets quite agitated when the sedation runs of and this has been noted by the nursing staff. Note that no purposeful activity or following commands and his mentation is not appropriate at this point in time. There may be a component of delirium tremens of this patient. He is a long-time alcoholic. In [facility], another sedation holiday will be given today and his mental status will be reassessed during the day. Meanwhile, this morning, he is on assist-control mode at a rate of 18 with a tidal volume of 400 and FiO2 was at 45% with a PEEP of 5. His chest x-ray showed no acute abnormalities and EKG was in a good location. No significant orotracheal secretions. The blood gas is showing a component of alkalosis as the patient was being given bicarb infusion. His patient's pH is at 7.47 with a pCO2 of 54 and pO2 of 90. On his blood work, the renal function has improved. The patient's creatinine is down to 1.23 with a BUN of 44. Sodium is at 143 and potassium is at 3.70 severity replaced. Serum bicarb is up to 32. WBC was at 14.3 and hematocrit is 49 with a platelet count that is pending for now. Note that her amylase and lipase was slightly elevated and there may be a component of pancreatitis along with alcoholic hepatitis. Blood culture was positive for staph aureus and staph epidermidis. I'm not sure if this is a true infection versus a contaminant. This was only in 1 out of 2 bottles. Another set of blood cultures will be obtained. Noted the patient was given a dose of vancomycin pending further cultures. He is on Lovenox portably prophylaxis. He remains nothing by mouth. No pressors for now. Renal ultrasound was completed yesterday and it showed no evidence of any hydronephrosis. Objective - Vital Signs Vital signs: Vital Signs Temp 100.7 F H 08/18/22 00:00 Pulse 101 H 08/18/22 06:00 Resp 18 08/18/22 06:00 BP 99/63 08/18/22 06:00 Pulse Ox 95 08/18/22 06:00 FiO2 45 08/18/22 05:15 Intake & Output 08/17/22 08/17/22 08/18/22 06:59 18:59 06:59 Intake Total 9659.720 9037.955 2101.070 Output Total 215 1200 970 Balance 0887.508 7756.955 1131.070 Weight 81.647 kg 79.8 kg Intake: IV 1300 3350 1800 Dextrose 5% in Water 1, 1350 1800 000 ml @ 150 mls/hr IV . Q7H40M [facility] with Sodium Bicarb (1 Meq/ml) 150 ml Rx#:[id number] Potassium Chloride 10 meq 400 In Water For Injection 1 100ml.bag @ 100 mls/hr IVPB Q1HR [facility] Rx#: [id number] Sodium Chloride 0.9% 1, 900 450 000 ml @ 150 mls/hr IV . Q6H40M [facility] Rx#:[id number] Sodium Chloride 0.9% 1, 1000 000 ml @ 999 mls/hr IV . Q1H1M [facility] Rx#:[id number] Thiamine 100 mg In Sodium 50 Chloride 0.9% 50 ml @ 100 mls/hr IVPB Q24HR [facility] Rx#:[id number] Vancomycin 1,500 mg In 500 Sodium Chloride 0.9% 500 ml 500 ml @ 167 mls/hr IVPB Q24H [facility] Rx#: [id number] Intake, IV Titration 142.680 363.955 271.070 Amount Midazolam HCl 50 mg In 51.999 145.283 Sodium Chloride 0.9% 40 ml @ 1 MG/HR 1 mls/hr IV .Q24H [facility] Rx#:[id number] Sodium Chloride 0.9% 80 88.721 218.672 66.407 ml @ 2 MCG/KG/HR 16.329 mls/hr IV .Q6H8M [facility] with fentaNYL (PF) 1,000 mcg Rx#:[id number] fentaNYL (PF) 2,500 mcg 204.663 In Sodium Chloride 0.9% 200 ml @ 4 MCG/KG/HR 32. 659 mls/hr IV .Q7H40M [facility] Rx#:[id number] propofoL 1,000 mg In 1.96 Empty Bag 1 bag @ 20 MCG/ KG/MIN 9.798 mls/hr IV . [id number] [facility] Rx#:[id number] Other 30 Output: Gastric Drainage 300 290 Urine 215 700 680 Stool 200 Other: Voiding Method Indwelling Catheter Indwelling Catheter Indwelling Catheter - Exam the patient is currently intubated on a mechanical ventilator, he is sedated. He has an orogastric and orotracheal tube in place. His calm and comfortable. He grimaces to deep painful stimulation. Once off sedation, he gets quite agitated. Head exam was generally normal. There was no scleral icterus or corneal arcus. Mucous membranes were moist. Neck was supple and without jugular venous distension, thyromegaly, or carotid bruits. Carotids were easily palpable bilaterally. There was no adenopathy. Lungs were clear to auscultation and percussion, and with normal diaphragmatic excursion. No wheezes or rales were noted. Cardiac exam revealed the PMI to be normally situated and sized. The rhythm was regular and no extrasystoles were noted during several minutes of auscultation. The first and second heart sounds were normal and physiologic splitting of the second heart sound was noted. There were no murmurs, rubs, clicks, or gallops. Abdominal exam revealed normal bowel sounds. The abdomen was soft, non-tender, and without masses, organomegaly, or appreciable enlargement of the abdominal aorta. Examination of the extremities revealed easily palpable radial, femoral and pedal pulses. There was no cyanosis, clubbing or edema. Examination of the skin revealed no evidence of significant rashes, suspicious appearing nevi or other concerning lesions. Neurologically, the patient is awake and alert and the patient does not have any focal neurological deficit. Cranial nerves are essentially intact. - Labs CBC & Chem 7: 08/18/22 05:33 08/18/22 05:33 Labs: Abnormal Lab Results - Last 24 Hours (Table) 08/17/22 08/17/22 08/17/22 Range/Units 07:26 07:26 07:26 WBC 22.9 H (3.8-10.6) k/uL RBC 6.22 H (4.30-5.90) m/uL Hgb 19.5 H* (13.0-17.5) gm/dL Hct 59.1 H* (39.0-53.0) % Plt Count 134 L (150-450) k/uL Neutrophils # 17.3 H (1.3-7.7) k/uL Monocytes # 1.7 H (0-1.0) k/uL ABG pH (7.35-7.45) ABG pCO2 (35-45) mmHg ABG HCO3 (21-25) mmol/L ABG Total CO2 (19-24) mmol/L ABG O2 Saturation (94-97) % Potassium (3.5-5.1) mmol/L Chloride 109 H (98-107) mmol/L Carbon Dioxide 16 L (22-30) mmol/L BUN 61 H (9-20) mg/dL Creatinine 2.75 H (0.66-1.25) mg/dL Glucose 112 H (74-99) mg/dL POC Glucose (mg/dL) (70-110) mg/dL Plasma Lactic Acid Aiden 3.1 H* (0.7-2.0) mmol/L Calcium 7.3 L (8.4-10.2) mg/dL Phosphorus 8.4 H (2.5-4.5) mg/dL Total Bilirubin (0.2-1.3) mg/dL AST (17-59) U/L ALT (4-49) U/L Total Protein (6.3-8.2) g/dL Albumin (3.5-5.0) g/dL Amylase 416 H* (30-110) U/L Lipase 590 H (23-300) U/L 08/17/22 08/17/22 08/18/22 Range/Units 11:58 18:00 00:39 WBC (3.8-10.6) k/uL RBC (4.30-5.90) m/uL Hgb (13.0-17.5) gm/dL Hct (39.0-53.0) % Plt Count (150-450) k/uL Neutrophils # (1.3-7.7) k/uL Monocytes # (0-1.0) k/uL ABG pH (7.35-7.45) ABG pCO2 (35-45) mmHg ABG HCO3 (21-25) mmol/L ABG Total CO2 (19-24) mmol/L ABG O2 Saturation (94-97) % Potassium (3.5-5.1) mmol/L Chloride (98-107) mmol/L Carbon Dioxide (22-30) mmol/L BUN (9-20) mg/dL Creatinine (0.66-1.25) mg/dL Glucose (74-99) mg/dL POC Glucose (mg/dL) 144 H 153 H 131 H (70-110) mg/dL Plasma Lactic Acid Aiden (0.7-2.0) mmol/L Calcium (8.4-10.2) mg/dL Phosphorus (2.5-4.5) mg/dL Total Bilirubin (0.2-1.3) mg/dL AST (17-59) U/L ALT (4-49) U/L Total Protein (6.3-8.2) g/dL Albumin (3.5-5.0) g/dL Amylase (30-110) U/L Lipase (23-300) U/L 08/18/22 08/18/22 08/18/22 Range/Units 05:33 05:33 05:59 WBC 14.3 H (3.8-10.6) k/uL RBC (4.30-5.90) m/uL Hgb (13.0-17.5) gm/dL Hct (39.0-53.0) % Plt Count (150-450) k/uL Neutrophils # (1.3-7.7) k/uL Monocytes # (0-1.0) k/uL ABG pH 7.47 H (7.35-7.45) ABG pCO2 54 H (35-45) mmHg ABG HCO3 39 H (21-25) mmol/L ABG Total CO2 41 H (19-24) mmol/L ABG O2 Saturation 98.2 H (94-97) % Potassium 3.3 L (3.5-5.1) mmol/L Chloride (98-107) mmol/L Carbon Dioxide 32 H (22-30) mmol/L BUN 44 H (9-20) mg/dL Creatinine (0.66-1.25) mg/dL Glucose 148 H (74-99) mg/dL POC Glucose (mg/dL) (70-110) mg/dL Plasma Lactic Acid Aiden (0.7-2.0) mmol/L Calcium 7.1 L (8.4-10.2) mg/dL Phosphorus (2.5-4.5) mg/dL Total Bilirubin 2.3 H (0.2-1.3) mg/dL AST 83 H (17-59) U/L ALT 80 H (4-49) U/L Total Protein 5.7 L (6.3-8.2) g/dL Albumin 3.0 L (3.5-5.0) g/dL Amylase (30-110) U/L Lipase (23-300) U/L 08/18/22 Range/Units 06:37 WBC (3.8-10.6) k/uL RBC (4.30-5.90) m/uL Hgb (13.0-17.5) gm/dL Hct (39.0-53.0) % Plt Count (150-450) k/uL Neutrophils # (1.3-7.7) k/uL Monocytes # (0-1.0) k/uL ABG pH (7.35-7.45) ABG pCO2 (35-45) mmHg ABG HCO3 (21-25) mmol/L ABG Total CO2 (19-24) mmol/L ABG O2 Saturation (94-97) % Potassium (3.5-5.1) mmol/L Chloride (98-107) mmol/L Carbon Dioxide (22-30) mmol/L BUN (9-20) mg/dL Creatinine (0.66-1.25) mg/dL Glucose (74-99) mg/dL POC Glucose (mg/dL) 144 H (70-110) mg/dL Plasma Lactic Acid Aiden (0.7-2.0) mmol/L Calcium (8.4-10.2) mg/dL Phosphorus (2.5-4.5) mg/dL Total Bilirubin (0.2-1.3) mg/dL AST (17-59) U/L ALT (4-49) U/L Total Protein (6.3-8.2) g/dL Albumin (3.5-5.0) g/dL Amylase (30-110) U/L Lipase (23-300) U/L Microbiology - Last 24 Hours (Table) 08/16/22 20:37 Blood Culture Gram Stain - Preliminary Blood Blood Culture - Preliminary Staphylococcus aureus Staphylococcus epidermidis 08/17/22 00:38 Sputum Culture - Preliminary Sputum 08/16/22 20:37 Blood Culture - Final Blood Assessment and Plan Plan: Altered mental status, currently under investigation. No clinical evidence of stroke. The neuro workup has been negative thus far. The patient may have an underlying metabolic encephalopathy. Cannot rule out the possibility of delirium tremens. The patient is currently on a combination of fentanyl and Versed to control his agitation. Acute respiratory failure, this is a non-hypoxic respiratory failure, probably hypercapnic. The patient was unable to protect his airways in the emergency department as such the patient was intubated on a mechanical ventilator for now. He was quite acidotic at the time of admission and mildly hypercapnic. Chest x-ray is clear. Oxygenation is adequate for now. Chest x-ray from today is not showing any acute abnormalities., > 30 min Positive culture with staph aureus and staph epidermidis, could be contaminant versus true infection. The patient is currently on vancomycin Severe lactic acidosis, improving and the lactic acid level is down to 3.0. Hypotension, recovered and the patient is normotensive for now Anion gap metabolic acidosis, being monitored, controlled with bicarb infusion the patient is currently alkalotic Troponin leak, probably in association with major hemodynamic alteration in acidosis, type II ischemia. Alcoholism Acute kidney injury improving and the creatinine is currently down to 1.23. Acute hypokalemia, awaiting follow-up labs, being replaced History of atrial fibrillation, current rhythm is sinus Hypertension Hyperlipidemia Plan Continue ventilator support and dropped FiO2 down to 40% Give the patient has sedation holiday. I would suggest dropping and put on first and keeping the patient Versed and assess his mentation and assess his ability to follow commands and will decide if further weaning it is possible today. Discontinue bicarb infusion and switch this patient to normal saline at rate of 75 mL an hour and replace the potassium. Renal function is improving and the creatinine is normalizing. No evidence of any hydronephrosis. Repeat another 2 sets of blood cultures and continue the vancomycin for now Continue IV Protonix and IV thiamine Start the patient enteral feeding for nutritional support Awaiting follow-up electrodes from this morning of interest will be his level of acidosis and his potassium level and renal function. Altered obtain an ultrasound the kidneys to rule out hydronephrosis Keep the sedation for now with a combination of Versed and fentanyl Continue IV fluids in the form of normal saline at rate of 75 mL an hour Heparin subcu portably prophylaxis IV Protonix IV thiamine 100 mg every 24 hours Lovenox 40 mg for DVT prophylaxis subcu The patient enteral feeding for nutritional support. Dietary consultation will be obtained Check amylase and lipase levels were elevated yesterday in follow-up levels will be obtained today Condition is critical. We'll continue to follow and make further recommendations based on his progress. Critical care evaluation Time with Patient: Greater than 30
[2022-08-18] MEDS: SODIUM CHLORIDE 0.9% 80 ML with fentaNYL (PF) 1,000 MCG IV SCH ×2 (07:19)
--- NOTE | 2022-08-18 07:23 | XR ---
EXAMINATION TYPE: XR chest 1V portable DATE OF EXAM: 08/18/2022 5:23 AM COMPARISON: Chest radiograph from one day prior. TECHNIQUE: XR chest 1V portable Frontal view of the chest. CLINICAL INDICATION:Male, 57 years old with history of Tube placement; FINDINGS: Lungs/Pleura: There is no evidence of pleural effusion, focal consolidation, or pneumothorax. Pulmonary vascularity: Unremarkable. Heart/mediastinum: Cardiomediastinal silhouette is unremarkable. Musculoskeletal: No acute osseous pathology. Other findings: None Lines/Tubes: Endotracheal tube with distal tip 6.9 cm above the dany. Nasogastric tube with its distal tip and side-port projecting under the diaphragm. IMPRESSION: 1. No acute cardiopulmonary disease/process. 2. Stable support tubes
[2022-08-18] MEDS ORDERED: Potassium Replacement Protocol 1 EACH MISC MISCELLANE PRN (07:28)
[2022-08-18] MEDS: SODIUM CHLORIDE 0.9% 1,000 ML IV SCH ×2 (07:30→18:11)
[2022-08-18 08:01] LABS: Platelet Count 54 k/uL (150-450)
[2022-08-18] MEDS: VANCOMYCIN 1,500 MG in SODIUM CHLORIDE 0.9% 500 ML 500 ML IVPB SCH ×2 (08:37→20:08)
[2022-08-18] MEDS: CHLORHEXIDINE GLUCONATE 15 ML CUP MUCOUS MEM SCH ×2 (08:41→20:08)
[2022-08-18] MEDS: POTASSIUM BICARBONATE/CIT AC 20 MEQ TABLET.EFF NG-TUBE SCH ×2 (08:41→11:31)
[2022-08-18] MEDS: ENOXAPARIN 40 MG/0.4 ML SYRINGE SQ SCH (08:42)
[2022-08-18] MEDS: PANTOPRAZOLE 40 MG/10 ML VIAL IVP SCH ×2 (08:43→20:08)
[2022-08-18 08:54] LABS: Amylase 48 U/L (30-110); Lipase 72 U/L (23-300)
[2022-08-18] MEDS: MIDAZOLAM HCL 200 MG in SODIUM CHLORIDE 0.9% 60 ML IV SCH (09:00)
--- NOTE | 2022-08-18 10:22 | P.PN ---
Subjective Progress Note Date: 08/18/22 Principal diagnosis: Upper GI bleed Patient remains on the ventilator sedated. The gastric aspirate appears more serous in appearance. There is a pink tinged to some of the fluid in the container. The stool however is loose and brown. A fecal management system was placed and C. diff is pending. Hemoglobin relatively stable. Objective - Vital Signs Vital signs: Vital Signs Temp 100 F H 08/18/22 08:00 Pulse 101 H 08/18/22 08:30 Resp 17 08/18/22 08:30 BP 99/67 08/18/22 08:30 Pulse Ox 94 L 08/18/22 08:30 FiO2 40 08/18/22 08:00 Intake & Output 08/17/22 08/18/22 08/18/22 18:59 06:59 18:59 Intake Total 3713.955 2101.070 513.662 Output Total 1200 970 170 Balance 2513.955 1131.070 343.662 Weight 79.8 kg Intake: IV 3350 1800 150 Dextrose 5% in Water 1, 1350 1800 150 000 ml @ 150 mls/hr IV . Q7H40M [facility] with Sodium Bicarb (1 Meq/ml) 150 ml Rx#:[id number] Sodium Chloride 0.9% 1, 450 000 ml @ 150 mls/hr IV . Q6H40M [facility] Rx#:[id number] Sodium Chloride 0.9% 1, 1000 000 ml @ 999 mls/hr IV . Q1H1M [facility] Rx#:[id number] Thiamine 100 mg In Sodium 50 Chloride 0.9% 50 ml @ 100 mls/hr IVPB Q24HR [facility] Rx#:[id number] Vancomycin 1,500 mg In 500 Sodium Chloride 0.9% 500 ml 500 ml @ 167 mls/hr IVPB Q24H [facility] Rx#: [id number] Intake, IV Titration 363.955 271.070 363.662 Amount Midazolam HCl 200 mg In 78.05 Sodium Chloride 0.9% 60 ml @ 14 MG/HR 7 mls/hr IV .[id number] [facility] Rx#: [id number] Midazolam HCl 50 mg In 145.283 Sodium Chloride 0.9% 40 ml @ 1 MG/HR 1 mls/hr IV .Q24H [facility] Rx#:[id number] Sodium Chloride 0.9% 1, 100 000 ml @ 100 mls/hr IV . Q10H [facility] Rx#:[id number] Sodium Chloride 0.9% 80 218.672 66.407 ml @ 2 MCG/KG/HR 16.329 mls/hr IV .Q6H8M [facility] with fentaNYL (PF) 1,000 mcg Rx#:[id number] fentaNYL (PF) 2,500 mcg 204.663 185.612 In Sodium Chloride 0.9% 200 ml @ 4 MCG/KG/HR 32. 659 mls/hr IV .Q7H40M [facility] Rx#:[id number] Other 30 Output: Gastric Drainage 300 290 Urine 700 680 70 Stool 200 100 Other: Voiding Method Indwelling Catheter Indwelling Catheter Indwelling Catheter - Exam Abdomen: Soft, nontender, nondistended - Labs CBC & Chem 7: 08/18/22 05:33 08/18/22 05:33 Labs: Abnormal Lab Results - Last 24 Hours (Table) 08/17/22 08/17/22 08/18/22 Range/Units 11:58 18:00 00:39 WBC (3.8-10.6) k/uL Plt Count (150-450) k/uL Neutrophils # (1.3-7.7) k/uL Monocytes # (0-1.0) k/uL ABG pH (7.35-7.45) ABG pCO2 (35-45) mmHg ABG HCO3 (21-25) mmol/L ABG Total CO2 (19-24) mmol/L ABG O2 Saturation (94-97) % Potassium (3.5-5.1) mmol/L Carbon Dioxide (22-30) mmol/L BUN (9-20) mg/dL Glucose (74-99) mg/dL POC Glucose (mg/dL) 144 H 153 H 131 H (70-110) mg/dL Calcium (8.4-10.2) mg/dL Total Bilirubin (0.2-1.3) mg/dL AST (17-59) U/L ALT (4-49) U/L Total Protein (6.3-8.2) g/dL Albumin (3.5-5.0) g/dL 08/18/22 08/18/22 08/18/22 Range/Units 05:33 05:33 05:59 WBC 14.3 H (3.8-10.6) k/uL Plt Count 54 L D (150-450) k/uL Neutrophils # 10.8 H (1.3-7.7) k/uL Monocytes # 1.2 H (0-1.0) k/uL ABG pH 7.47 H (7.35-7.45) ABG pCO2 54 H (35-45) mmHg ABG HCO3 39 H (21-25) mmol/L ABG Total CO2 41 H (19-24) mmol/L ABG O2 Saturation 98.2 H (94-97) % Potassium 3.3 L (3.5-5.1) mmol/L Carbon Dioxide 32 H (22-30) mmol/L BUN 44 H (9-20) mg/dL Glucose 148 H (74-99) mg/dL POC Glucose (mg/dL) (70-110) mg/dL Calcium 7.1 L (8.4-10.2) mg/dL Total Bilirubin 2.3 H (0.2-1.3) mg/dL AST 83 H (17-59) U/L ALT 80 H (4-49) U/L Total Protein 5.7 L (6.3-8.2) g/dL Albumin 3.0 L (3.5-5.0) g/dL 08/18/22 Range/Units 06:37 WBC (3.8-10.6) k/uL Plt Count (150-450) k/uL Neutrophils # (1.3-7.7) k/uL Monocytes # (0-1.0) k/uL ABG pH (7.35-7.45) ABG pCO2 (35-45) mmHg ABG HCO3 (21-25) mmol/L ABG Total CO2 (19-24) mmol/L ABG O2 Saturation (94-97) % Potassium (3.5-5.1) mmol/L Carbon Dioxide (22-30) mmol/L BUN (9-20) mg/dL Glucose (74-99) mg/dL POC Glucose (mg/dL) 144 H (70-110) mg/dL Calcium (8.4-10.2) mg/dL Total Bilirubin (0.2-1.3) mg/dL AST (17-59) U/L ALT (4-49) U/L Total Protein (6.3-8.2) g/dL Albumin (3.5-5.0) g/dL Microbiology - Last 24 Hours (Table) 08/17/22 00:38 Gram Stain - Preliminary Sputum Sputum Culture - Preliminary 08/16/22 20:37 Blood Culture Gram Stain - Preliminary Blood Blood Culture - Preliminary Staphylococcus aureus Staphylococcus epidermidis 08/16/22 20:37 Blood Culture - Final Blood Assessment and Plan (1) GI bleed Narrative/Plan: Patient without significant bleeding at this time. Check C. diff as ordered. Follow hemoglobin. Continue antiacid therapy. Consider initiation of low volume tube feeds. We'll follow. Current Visit: Yes Status: Acute Code(s): K92.2 - GASTROINTESTINAL HEMORRHAGE, UNSPECIFIED SNOMED Code(s): 27770818
--- NOTE | 2022-08-18 10:22 | P.PN ---
Subjective Patient is seen in follow-up for acute kidney injury. Renal function improving. Nonoliguric. Receiving IV fluids. Now on normal saline. Intubated. Vital signs are stable. General: Resting in bed. HEENT: Intubated. NG tube noted. LUNGS: Breath sounds decreased. HEART: Rate and Rhythm are regular. ABDOMEN: Soft, no distention. EXTREMITITES: No edema. Objective - Vital Signs Vital signs: Vital Signs Temp 100 F H 08/18/22 08:00 Pulse 101 H 08/18/22 08:30 Resp 17 08/18/22 08:30 BP 99/67 08/18/22 08:30 Pulse Ox 94 L 08/18/22 08:30 FiO2 40 08/18/22 08:00 Intake & Output 08/17/22 08/18/22 08/18/22 18:59 06:59 18:59 Intake Total 3713.955 2101.070 513.662 Output Total 1200 970 170 Balance 2513.955 1131.070 343.662 Weight 79.8 kg Intake: IV 3350 1800 150 Dextrose 5% in Water 1, 1350 1800 150 000 ml @ 150 mls/hr IV . Q7H40M [facility] with Sodium Bicarb (1 Meq/ml) 150 ml Rx#:[id number] Sodium Chloride 0.9% 1, 450 000 ml @ 150 mls/hr IV . Q6H40M [facility] Rx#:[id number] Sodium Chloride 0.9% 1, 1000 000 ml @ 999 mls/hr IV . Q1H1M [facility] Rx#:[id number] Thiamine 100 mg In Sodium 50 Chloride 0.9% 50 ml @ 100 mls/hr IVPB Q24HR [facility] Rx#:[id number] Vancomycin 1,500 mg In 500 Sodium Chloride 0.9% 500 ml 500 ml @ 167 mls/hr IVPB Q24H [facility] Rx#: [id number] Intake, IV Titration 363.955 271.070 363.662 Amount Midazolam HCl 200 mg In 78.05 Sodium Chloride 0.9% 60 ml @ 14 MG/HR 7 mls/hr IV .[id number] [facility] Rx#: [id number] Midazolam HCl 50 mg In 145.283 Sodium Chloride 0.9% 40 ml @ 1 MG/HR 1 mls/hr IV .Q24H [facility] Rx#:[id number] Sodium Chloride 0.9% 1, 100 000 ml @ 100 mls/hr IV . Q10H [facility] Rx#:[id number] Sodium Chloride 0.9% 80 218.672 66.407 ml @ 2 MCG/KG/HR 16.329 mls/hr IV .Q6H8M [facility] with fentaNYL (PF) 1,000 mcg Rx#:[id number] fentaNYL (PF) 2,500 mcg 204.663 185.612 In Sodium Chloride 0.9% 200 ml @ 4 MCG/KG/HR 32. 659 mls/hr IV .Q7H40M [facility] Rx#:[id number] Other 30 Output: Gastric Drainage 300 290 Urine 700 680 70 Stool 200 100 Other: Voiding Method Indwelling Catheter Indwelling Catheter Indwelling Catheter - Labs CBC & Chem 7: 08/18/22 05:33 08/18/22 05:33 Labs: Abnormal Lab Results - Last 24 Hours (Table) 08/17/22 08/17/22 08/18/22 Range/Units 11:58 18:00 00:39 WBC (3.8-10.6) k/uL Plt Count (150-450) k/uL Neutrophils # (1.3-7.7) k/uL Monocytes # (0-1.0) k/uL ABG pH (7.35-7.45) ABG pCO2 (35-45) mmHg ABG HCO3 (21-25) mmol/L ABG Total CO2 (19-24) mmol/L ABG O2 Saturation (94-97) % Potassium (3.5-5.1) mmol/L Carbon Dioxide (22-30) mmol/L BUN (9-20) mg/dL Glucose (74-99) mg/dL POC Glucose (mg/dL) 144 H 153 H 131 H (70-110) mg/dL Calcium (8.4-10.2) mg/dL Total Bilirubin (0.2-1.3) mg/dL AST (17-59) U/L ALT (4-49) U/L Total Protein (6.3-8.2) g/dL Albumin (3.5-5.0) g/dL 08/18/22 08/18/22 08/18/22 Range/Units 05:33 05:33 05:59 WBC 14.3 H (3.8-10.6) k/uL Plt Count 54 L D (150-450) k/uL Neutrophils # 10.8 H (1.3-7.7) k/uL Monocytes # 1.2 H (0-1.0) k/uL ABG pH 7.47 H (7.35-7.45) ABG pCO2 54 H (35-45) mmHg ABG HCO3 39 H (21-25) mmol/L ABG Total CO2 41 H (19-24) mmol/L ABG O2 Saturation 98.2 H (94-97) % Potassium 3.3 L (3.5-5.1) mmol/L Carbon Dioxide 32 H (22-30) mmol/L BUN 44 H (9-20) mg/dL Glucose 148 H (74-99) mg/dL POC Glucose (mg/dL) (70-110) mg/dL Calcium 7.1 L (8.4-10.2) mg/dL Total Bilirubin 2.3 H (0.2-1.3) mg/dL AST 83 H (17-59) U/L ALT 80 H (4-49) U/L Total Protein 5.7 L (6.3-8.2) g/dL Albumin 3.0 L (3.5-5.0) g/dL 08/18/22 Range/Units 06:37 WBC (3.8-10.6) k/uL Plt Count (150-450) k/uL Neutrophils # (1.3-7.7) k/uL Monocytes # (0-1.0) k/uL ABG pH (7.35-7.45) ABG pCO2 (35-45) mmHg ABG HCO3 (21-25) mmol/L ABG Total CO2 (19-24) mmol/L ABG O2 Saturation (94-97) % Potassium (3.5-5.1) mmol/L Carbon Dioxide (22-30) mmol/L BUN (9-20) mg/dL Glucose (74-99) mg/dL POC Glucose (mg/dL) 144 H (70-110) mg/dL Calcium (8.4-10.2) mg/dL Total Bilirubin (0.2-1.3) mg/dL AST (17-59) U/L ALT (4-49) U/L Total Protein (6.3-8.2) g/dL Albumin (3.5-5.0) g/dL Microbiology - Last 24 Hours (Table) 08/17/22 00:38 Gram Stain - Preliminary Sputum Sputum Culture - Preliminary 08/16/22 20:37 Blood Culture Gram Stain - Preliminary Blood Blood Culture - Preliminary Staphylococcus aureus Staphylococcus epidermidis 08/16/22 20:37 Blood Culture - Final Blood Assessment and Plan Plan: Assessment: 1. Acute kidney injury secondary to hemodynamic ATN. Creatinine 2.66 on admission and is 1.23 today. Patient received IV contrast for CT angiogram and CT of the chest abdomen and pelvis on 08/16/2022 which were negative. No hydronephrosis was noted. Creatinine in August 2018 was 1. 2. Alcohol withdrawal. 3. Metabolic acidosis secondary to acute kidney injury and lactic acidosis. Status post bicarb drip. Resolved. 4. Hypokalemia from poor intake and intracellular shifting. 5. Altered mental status. ?Etiology. Gram-positive bacteremia. On antibiotics. Plan: Maintain normal saline. Potassium replaced. Avoid nephrotoxins. Continue to monitor renal function and urine output. Wean FiO2.
--- NOTE | 2022-08-18 10:30 | P.PN ---
Subjective Progress Note Date: 08/18/22 Hospital Course: 57-year-old male with history of alcohol dependence/abuse, atrial fibrillation presented with altered mentation and possible code stroke. On arrival, patient was hemodynamically unstable, in A. fib with RVR, patient was intubated and cardioverted to normal sinus rhythm. CT had showed no acute process, interventional neurology station mechanic helper did not recommend to give alteplase. Reportedly, patient has been binge drinking, his last drink was on August 11. Per family patient was vomiting prior to becoming unresponsive. His initial labs were consistent with severe dehydration, pH of 7.13, potassium 2.7, creatinine of 3.66, lactic acid of 12.4, mild transaminitis, mild elevated troponin, urine tox positive for benzos and marijuana. Currently patient remains intubated, not requiring any pressors, currently on sedation, renal function improving with IV fluids. Is also concern for possible GI bleed, patient on IV Protonix, surgery following. Nephrology and ICU also following. Subjective: Patient seen and examined at bedside. No acute events overnight. Currently he remains intubated and sedated. Per nursing, his urine output is getting better. He has dark-colored stools, and minimal NG output with serosanguineous fluid. Pertinent positives and negatives as discussed above, a complete review of systems was performed and all other systems are negative. Vitals Signs Reviewed. Vital signs reviewed General: Intubated and sedated Derm: warm, dry Head: atraumatic, normocephalic, symmetric Eyes: Pupils pinpoint equal and reactive Mouth: no lip lesion, mucus membranes moist Cardiovascular: S1S2 reg, no murmur, positive posterior tibial pulse bilateral, Lungs: Clear to auscultation bilaterally, mechanical ventilation Abdominal: soft, nondistended, no rigidity, no appreciable organomegaly, NG tube in place Ext: no gross muscle atrophy, no edema, no contractures Neuro: Sedated Psych: Unable to assess Assessment/Plan: Shock, likely hypovolemic - resolved A. fib with RVR status post cardioversion Acute metabolic encephalopathy Acute hypoxic and hypercapnic respiratory failure status post intubation Acute kidney injury - resolved Uremia Severe hypokalemia - resolving Severe hyperphosphatemia - resolved Hyperammonemia Elevated troponin High anion gap metabolic acidosis secondary to Severe lactic acidosis - resolved History of alcohol abuse Gram-positive bacteremia -Continue ICU care -Continue IV fluids -Monitor urine output and renal function, renal ultrasound showed no hydronephrosis -Electrolytes improving, continue to monitor -IV PPI twice a day -Gen. surgery , and nephrology, and cardiology following -First set of blood cultures positive for staph, likely contaminant -Patient currently on vancomycin, repeat blood cultures pending DVT ppx: Lovenox Code status: Full code Anticipated discharge place: Pending clinical course Anticipated discharge time: Pending clinical course Objective - Vital Signs Vital signs: Vital Signs Temp 100 F H 08/18/22 08:00 Pulse 99 08/18/22 10:00 Resp 18 08/18/22 10:00 BP 99/68 08/18/22 10:00 Pulse Ox 94 L 08/18/22 10:00 FiO2 40 08/18/22 10:00 Intake & Output 08/17/22 08/18/22 08/18/22 18:59 06:59 18:59 Intake Total 3713.955 2101.070 513.662 Output Total 1200 970 170 Balance 2513.955 1131.070 343.662 Weight 79.8 kg Intake: IV 3350 1800 150 Dextrose 5% in Water 1, 1350 1800 150 000 ml @ 150 mls/hr IV . Q7H40M [facility] with Sodium Bicarb (1 Meq/ml) 150 ml Rx#:[id number] Sodium Chloride 0.9% 1, 450 000 ml @ 150 mls/hr IV . Q6H40M [facility] Rx#:[id number] Sodium Chloride 0.9% 1, 1000 000 ml @ 999 mls/hr IV . Q1H1M [facility] Rx#:[id number] Thiamine 100 mg In Sodium 50 Chloride 0.9% 50 ml @ 100 mls/hr IVPB Q24HR [facility] Rx#:[id number] Vancomycin 1,500 mg In 500 Sodium Chloride 0.9% 500 ml 500 ml @ 167 mls/hr IVPB Q24H [facility] Rx#: [id number] Intake, IV Titration 363.955 271.070 363.662 Amount Midazolam HCl 200 mg In 78.05 Sodium Chloride 0.9% 60 ml @ 14 MG/HR 7 mls/hr IV .[id number] [facility] Rx#: [id number] Midazolam HCl 50 mg In 145.283 Sodium Chloride 0.9% 40 ml @ 1 MG/HR 1 mls/hr IV .Q24H [facility] Rx#:[id number] Sodium Chloride 0.9% 1, 100 000 ml @ 100 mls/hr IV . Q10H [facility] Rx#:[id number] Sodium Chloride 0.9% 80 218.672 66.407 ml @ 2 MCG/KG/HR 16.329 mls/hr IV .Q6H8M [facility] with fentaNYL (PF) 1,000 mcg Rx#:[id number] fentaNYL (PF) 2,500 mcg 204.663 185.612 In Sodium Chloride 0.9% 200 ml @ 4 MCG/KG/HR 32. 659 mls/hr IV .Q7H40M [facility] Rx#:[id number] Other 30 Output: Gastric Drainage 300 290 Urine 700 680 70 Stool 200 100 Other: Voiding Method Indwelling Catheter Indwelling Catheter Indwelling Catheter - Labs CBC & Chem 7: 08/18/22 05:33 08/18/22 05:33 Labs: Abnormal Lab Results - Last 24 Hours (Table) 08/17/22 08/17/22 08/18/22 Range/Units 11:58 18:00 00:39 WBC (3.8-10.6) k/uL Plt Count (150-450) k/uL Neutrophils # (1.3-7.7) k/uL Monocytes # (0-1.0) k/uL ABG pH (7.35-7.45) ABG pCO2 (35-45) mmHg ABG HCO3 (21-25) mmol/L ABG Total CO2 (19-24) mmol/L ABG O2 Saturation (94-97) % Potassium (3.5-5.1) mmol/L Carbon Dioxide (22-30) mmol/L BUN (9-20) mg/dL Glucose (74-99) mg/dL POC Glucose (mg/dL) 144 H 153 H 131 H (70-110) mg/dL Calcium (8.4-10.2) mg/dL Total Bilirubin (0.2-1.3) mg/dL AST (17-59) U/L ALT (4-49) U/L Total Protein (6.3-8.2) g/dL Albumin (3.5-5.0) g/dL 08/18/22 08/18/22 08/18/22 Range/Units 05:33 05:33 05:59 WBC 14.3 H (3.8-10.6) k/uL Plt Count 54 L D (150-450) k/uL Neutrophils # 10.8 H (1.3-7.7) k/uL Monocytes # 1.2 H (0-1.0) k/uL ABG pH 7.47 H (7.35-7.45) ABG pCO2 54 H (35-45) mmHg ABG HCO3 39 H (21-25) mmol/L ABG Total CO2 41 H (19-24) mmol/L ABG O2 Saturation 98.2 H (94-97) % Potassium 3.3 L (3.5-5.1) mmol/L Carbon Dioxide 32 H (22-30) mmol/L BUN 44 H (9-20) mg/dL Glucose 148 H (74-99) mg/dL POC Glucose (mg/dL) (70-110) mg/dL Calcium 7.1 L (8.4-10.2) mg/dL Total Bilirubin 2.3 H (0.2-1.3) mg/dL AST 83 H (17-59) U/L ALT 80 H (4-49) U/L Total Protein 5.7 L (6.3-8.2) g/dL Albumin 3.0 L (3.5-5.0) g/dL 08/18/22 Range/Units 06:37 WBC (3.8-10.6) k/uL Plt Count (150-450) k/uL Neutrophils # (1.3-7.7) k/uL Monocytes # (0-1.0) k/uL ABG pH (7.35-7.45) ABG pCO2 (35-45) mmHg ABG HCO3 (21-25) mmol/L ABG Total CO2 (19-24) mmol/L ABG O2 Saturation (94-97) % Potassium (3.5-5.1) mmol/L Carbon Dioxide (22-30) mmol/L BUN (9-20) mg/dL Glucose (74-99) mg/dL POC Glucose (mg/dL) 144 H (70-110) mg/dL Calcium (8.4-10.2) mg/dL Total Bilirubin (0.2-1.3) mg/dL AST (17-59) U/L ALT (4-49) U/L Total Protein (6.3-8.2) g/dL Albumin (3.5-5.0) g/dL Microbiology - Last 24 Hours (Table) 08/17/22 00:38 Gram Stain - Preliminary Sputum Sputum Culture - Preliminary 08/16/22 20:37 Blood Culture Gram Stain - Preliminary Blood Blood Culture - Preliminary Staphylococcus aureus Staphylococcus epidermidis 08/16/22 20:37 Blood Culture - Final Blood
[2022-08-18] MEDS: METOPROLOL TARTRATE 25 MG TAB PO SCH ×2 (11:15→20:08)
[2022-08-18] MEDS: THIAMINE 100 MG in SODIUM CHLORIDE 0.9% 50 ML IVPB SCH (11:30)
--- NOTE | 2022-08-18 11:49 | P.PN ---
Subjective Progress Note Date: 08/18/22 This is Conner Crook NP, I'm dictating on behalf of Dr. Alfaro's H&P and A&P. Patient was interviewed and examined. Patient is a 57-year-old male who presented to the hospital unresponsive with agonal breathing. He was in afib with RVR, this has resolved and the patient is now in sinus rhythm. He remains sedated and intubated. He is unresponsive this morning. Nursing reported holding his metoprolol this am due to decreased blood pressures, which appear to be trending down. GENERAL: Intubated and sedated NECK: Supple without JVD or thyromegaly. LUNGS: Breath sounds clear to auscultation bilaterally. Respiration equal and unlabored. No wheezes, rales or rhonchi. HEART: Regular rate and rhythm without murmurs, rubs or gallops. S1 and S2 heard. EXTREMITIES: No edema. No clubbing or cyanosis. Peripheral pulses intact and strong. VITALS: Temp 100, pulse 99, respirations 18, blood pressure 99/68, O2 saturation 94% on mechanical ventilation TELEMETRY: Normal sinus rhythm LABS: White count 14.3, hemoglobin 16.4, platelets 54, ABG-pH 7.47, CO2 54, O2 90, HCO3 39; sodium 143, potassium 3.3, B1 44, creatinine 1.23, calcium 7.1, magnesium 1.8 IMPRESSION: 1. Acute alcohol withdrawal 2. Sinus tachycardia secondary to acute hypoxic failure, currently improved 3. Elevated troponins, likely secondary to respiratory failure PLAN: Decrease metoprolol to 25mg BID Continue other cardiac medications Further recommendations based on the patients clinical course. Objective - Vital Signs Vital signs: Vital Signs Temp 100 F H 08/18/22 08:00 Pulse 99 08/18/22 10:00 Resp 18 08/18/22 10:00 BP 99/68 08/18/22 10:00 Pulse Ox 94 L 08/18/22 10:00 FiO2 40 08/18/22 10:00 Intake & Output 08/17/22 08/18/22 08/18/22 18:59 06:59 18:59 Intake Total 3713.955 2101.070 723.929 Output Total 1200 970 260 Balance 2513.955 1131.070 463.929 Weight 79.8 kg Intake: IV 3350 1800 350 Dextrose 5% in Water 1, 1350 1800 150 000 ml @ 150 mls/hr IV . Q7H40M [facility] with Sodium Bicarb (1 Meq/ml) 150 ml Rx#:[id number] Sodium Chloride 0.9% 1, 200 000 ml @ 100 mls/hr IV . Q10H [facility] Rx#:[id number] Sodium Chloride 0.9% 1, 450 000 ml @ 150 mls/hr IV . Q6H40M [facility] Rx#:[id number] Sodium Chloride 0.9% 1, 1000 000 ml @ 999 mls/hr IV . Q1H1M [facility] Rx#:[id number] Thiamine 100 mg In Sodium 50 Chloride 0.9% 50 ml @ 100 mls/hr IVPB Q24HR [facility] Rx#:[id number] Vancomycin 1,500 mg In 500 Sodium Chloride 0.9% 500 ml 500 ml @ 167 mls/hr IVPB Q24H [facility] Rx#: [id number] Intake, IV Titration 363.955 271.070 373.929 Amount Midazolam HCl 200 mg In 88.317 Sodium Chloride 0.9% 60 ml @ 14 MG/HR 7 mls/hr IV .[id number] [facility] Rx#: [id number] Midazolam HCl 50 mg In 145.283 Sodium Chloride 0.9% 40 ml @ 1 MG/HR 1 mls/hr IV .Q24H [facility] Rx#:[id number] Sodium Chloride 0.9% 1, 100 000 ml @ 100 mls/hr IV . Q10H [facility] Rx#:[id number] Sodium Chloride 0.9% 80 218.672 66.407 ml @ 2 MCG/KG/HR 16.329 mls/hr IV .Q6H8M [facility] with fentaNYL (PF) 1,000 mcg Rx#:[id number] fentaNYL (PF) 2,500 mcg 204.663 185.612 In Sodium Chloride 0.9% 200 ml @ 4 MCG/KG/HR 32. 659 mls/hr IV .Q7H40M [facility] Rx#:[id number] Other 30 Output: Gastric Drainage 300 290 Urine 700 680 160 Stool 200 100 Other: Voiding Method Indwelling Catheter Indwelling Catheter Indwelling Catheter - Labs CBC & Chem 7: 08/18/22 05:33 08/18/22 05:33 Labs: Abnormal Lab Results - Last 24 Hours (Table) 08/17/22 08/17/22 08/18/22 Range/Units 11:58 18:00 00:39 WBC (3.8-10.6) k/uL Plt Count (150-450) k/uL Neutrophils # (1.3-7.7) k/uL Monocytes # (0-1.0) k/uL ABG pH (7.35-7.45) ABG pCO2 (35-45) mmHg ABG HCO3 (21-25) mmol/L ABG Total CO2 (19-24) mmol/L ABG O2 Saturation (94-97) % Potassium (3.5-5.1) mmol/L Carbon Dioxide (22-30) mmol/L BUN (9-20) mg/dL Glucose (74-99) mg/dL POC Glucose (mg/dL) 144 H 153 H 131 H (70-110) mg/dL Calcium (8.4-10.2) mg/dL Total Bilirubin (0.2-1.3) mg/dL AST (17-59) U/L ALT (4-49) U/L Total Protein (6.3-8.2) g/dL Albumin (3.5-5.0) g/dL 08/18/22 08/18/22 08/18/22 Range/Units 05:33 05:33 05:59 WBC 14.3 H (3.8-10.6) k/uL Plt Count 54 L D (150-450) k/uL Neutrophils # 10.8 H (1.3-7.7) k/uL Monocytes # 1.2 H (0-1.0) k/uL ABG pH 7.47 H (7.35-7.45) ABG pCO2 54 H (35-45) mmHg ABG HCO3 39 H (21-25) mmol/L ABG Total CO2 41 H (19-24) mmol/L ABG O2 Saturation 98.2 H (94-97) % Potassium 3.3 L (3.5-5.1) mmol/L Carbon Dioxide 32 H (22-30) mmol/L BUN 44 H (9-20) mg/dL Glucose 148 H (74-99) mg/dL POC Glucose (mg/dL) (70-110) mg/dL Calcium 7.1 L (8.4-10.2) mg/dL Total Bilirubin 2.3 H (0.2-1.3) mg/dL AST 83 H (17-59) U/L ALT 80 H (4-49) U/L Total Protein 5.7 L (6.3-8.2) g/dL Albumin 3.0 L (3.5-5.0) g/dL 08/18/22 Range/Units 06:37 WBC (3.8-10.6) k/uL Plt Count (150-450) k/uL Neutrophils # (1.3-7.7) k/uL Monocytes # (0-1.0) k/uL ABG pH (7.35-7.45) ABG pCO2 (35-45) mmHg ABG HCO3 (21-25) mmol/L ABG Total CO2 (19-24) mmol/L ABG O2 Saturation (94-97) % Potassium (3.5-5.1) mmol/L Carbon Dioxide (22-30) mmol/L BUN (9-20) mg/dL Glucose (74-99) mg/dL POC Glucose (mg/dL) 144 H (70-110) mg/dL Calcium (8.4-10.2) mg/dL Total Bilirubin (0.2-1.3) mg/dL AST (17-59) U/L ALT (4-49) U/L Total Protein (6.3-8.2) g/dL Albumin (3.5-5.0) g/dL Microbiology - Last 24 Hours (Table) 08/17/22 00:38 Gram Stain - Preliminary Sputum Sputum Culture - Preliminary 08/16/22 20:37 Blood Culture Gram Stain - Preliminary Blood Blood Culture - Preliminary Staphylococcus aureus Staphylococcus epidermidis 08/16/22 20:37 Blood Culture - Final Blood
[2022-08-18 12:00] LABS: Glucose,Whole Blood 91 mg/dL (70-110)
[2022-08-18 17:54] LABS: Glucose,Whole Blood 97 mg/dL (70-110)
[2022-08-18] MEDS: NOREPINEPHRINE 4 MG in SODIUM CHLORIDE 0.9% 250 ML IV SCH (18:12)
[2022-08-19] MEDS: fentaNYL (PF) 2,500 MCG in SODIUM CHLORIDE 0.9% 200 ML IV SCH ×4 (00:17→22:07)
[2022-08-19] MEDS: NOREPINEPHRINE 4 MG in SODIUM CHLORIDE 0.9% 250 ML IV SCH ×2 (03:19→15:30)
[2022-08-19] MEDS: MIDAZOLAM HCL 200 MG in SODIUM CHLORIDE 0.9% 60 ML IV SCH ×2 (03:24→14:34)
[2022-08-19] MEDS: SODIUM CHLORIDE 0.9% 1,000 ML IV SCH ×3 (03:25→20:40)
[2022-08-19 05:03] LABS: ABG Base Excess 10.7 mmol/L; ABG HCO3 34 mmol/L (21-25); ABG Oxygen Saturation 97.3 % (94-97); ABG PCO2 48 mmHg (35-45); ABG PH 7.47 (7.35-7.45); ABG PO2 84 mmHg (83-108); ABG TCO2 36 mmol/L (19-24); Allen Test Performed? Yes
[2022-08-19 08:17] LABS: Chloride 109 mmol/L (98-107)
[2022-08-19 08:20] LABS: African American GFR (CKD) >90 (>60 ml/min/1.73 sqM); Anion Gap 3 mmol/L; Blood Urea Nitrogen 26 mg/dL (9-20); Calcium 7.5 mg/dL (8.4-10.2); Carbon Dioxide 31 mmol/L (22-30); Glucose 83 mg/dL (74-99); Magnesium 1.8 mg/dL (1.6-2.3); Non-African American GFR(CKD) >90 (>60 ml/min/1.73 sqM); Sodium 143 mmol/L (137-145)
[2022-08-19] MEDS: VANCOMYCIN 1,500 MG in SODIUM CHLORIDE 0.9% 500 ML 500 ML IVPB SCH ×2 (09:08→20:41)
[2022-08-19] MEDS: THIAMINE 100 MG in SODIUM CHLORIDE 0.9% 50 ML IVPB SCH (09:08)
[2022-08-19] MEDS: CHLORHEXIDINE GLUCONATE 15 ML CUP MUCOUS MEM SCH ×2 (09:08→20:41)
[2022-08-19] MEDS: PANTOPRAZOLE 40 MG/10 ML VIAL IVP SCH ×2 (09:08→20:40)
[2022-08-19] MEDS: METOPROLOL TARTRATE 25 MG TAB PO SCH ×2 (09:08→22:28)
[2022-08-19] MEDS: ENOXAPARIN 40 MG/0.4 ML SYRINGE SQ SCH (09:08)
--- NOTE | 2022-08-19 09:53 | P.CNNES ---
History of Present Illness Consult date: 08/19/22 Requesting physician: Cami Schulte Reason for Consult: mental status changes History of Present Illness: Patient is a 57-year-old male came to the [facility] ambulance on 08/16/2022 for alcohol withdrawal with altered level of consciousness. When EMS arrived, found patient laying prone face down in the bed. Patient was unresponsive with tachypnea at 24. Patient's friend has mentioned the patient has been withdrawing from alcohol for the past 4 days. Patient's friend mentioned that the patient was last seen normal alert and oriented 4 just prior to EMS arrival. Estimated onset time was 7:30 PM. Pupils were 6 mm and nonreactive. Pulse was irregular tachycardia with rate of 150. Patient was hypotensive with initial BP 96/76 but then became hypotensive 73/49. Patient's respiration declined to 8-10 and started becoming shallow and ineffective and is oxygen saturation dropped to 85%. Patient's respiration when assisted with BVM at 15 later per minute. Patient's mouth appeared to have small amount of vomiting 8. Blood glucose was 144. Patient became more alert and saturation improved to 95% in the breathing improved. Patient was intubated in the ER. CT head reported mild cerebral atrophy, no ac [place] intracranial abnormality. CTA reported as negative of the brain. Mild plaque at the carotid artery bifurcation. No evidence of hemodynamic arterial stenosis in the neck. CT of the chest abdomen and pelvis were negative. Chest x-ray was normal and EKG showed sinus tachycardia. Patient's initial blood tests showed WBC 17.2 with hemoglobin 18.7 and platelets are normal. INR 1.4. ABG was pH 7.13, pCO2 50 and saturation 98.8. Sodium was normal potassium 2.7, BUN 52, creatinine 3.66. AST 191, ALT 84 troponin was mildly elevated 0.304, UA negative. Urine drug screen positive for benzodiazepine and marijuana. Blood alcohol level was <10. Patient's most recent blood test shows normal electrolytes, BUN 26, creatinine 0.88. Amylase and lipase are normal. Ammonia borderline 31. C. difficile negative. Patient currently on fentanyl 4 mcg/kg/h, thiamine 100 mg, Versed drip 7.5 mL p er hour. Patient otherwise is very agitated, restless. Patient is following some, arms, as per examination below. He is sedated. Review of Systems Patient sedated. Family members not available, and patient's nurse does not know any more details about review of systems. ROS unobtainable: due to endotracheal tube, due to mental status Past Medical History Past Medical History: Atrial Fibrillation, Hyperlipidemia, Hypertension History of Any Multi-Drug Resistant Organisms: None Reported Past Surgical History: Appendectomy, Orthopedic Surgery, Tonsillectomy Additional Past Surgical History / Comment(s): surgery for brain bleed 2019 or 2019 (family unsure) Past Psychological History: No Psychological Hx Reported Past Alcohol Use History: None Reported Past Drug Use History: None Reported - Past Family History family Family Medical History: Cancer Additional Family Medical History / Comment(s): no CAD Medications and Allergies Home Medications Medication Instructions Recorded Confirmed Type Hydrocodone/Acetaminophen [[place] 2 each PO Q6HR PRN #20 tab 01/25/17 08/17/22 Rx 5-325] Metoclopramide [Reglan] 5 mg PO QID PRN 08/17/22 08/17/22 History Metoprolol Succinate (ER) [Toprol 50 mg PO DAILY 08/17/22 08/17/22 History XL] Omeprazole [PriLOSEC] 20 mg PO DAILY 08/17/22 08/17/22 History Potassium Chloride ER [K-Dur 20] 20 meq PO BID 08/17/22 08/17/22 History Pravastatin Sodium [Pravachol] 40 mg PO DAILY 08/17/22 08/17/22 History methocarbamoL [Methocarbamol] 750 mg PO TID PRN 08/17/22 08/17/22 History Allergies Allergy/AdvReac Type Severity Reaction Status Date / Time Penicillins Allergy Unknown Verified 08/17/22 12:59 Childhood Physical Examination - Vital Signs Vital Signs: Vital Signs Temp Pulse Resp BP Pulse Ox FiO2 08/19/22 08:00 99.7 F H 81 26 H 135/72 99 40 08/19/22 07:45 84 22 131/87 08/19/22 07:30 80 21 118/62 100 08/19/22 07:23 40 08/19/22 07:15 75 24 116/63 08/19/22 07:00 75 18 117/63 98 08/19/22 06:45 77 18 121/66 98 08/19/22 06:30 77 18 117/65 97 08/19/22 06:15 77 18 117/66 97 01/09/23 06:00 77 19 125/72 97 40 08/19/22 05:45 83 18 128/66 99 08/19/22 05:30 80 18 111/66 99 08/19/22 05:15 70 19 109/67 99 08/19/22 05:00 71 18 110/63 98 40 08/19/22 04:45 68 19 110/66 99 08/19/22 04:30 68 0 L 108/66 100 08/19/22 04:15 68 0 L 107/63 08/19/22 04:00 98.6 F 68 20 114/67 99 40 08/19/22 03:45 72 20 107/60 08/19/22 03:30 68 19 106/62 08/19/22 03:15 68 19 107/64 98 08/19/22 03:00 70 18 107/62 98 40 08/19/22 02:56 40 08/19/22 02:45 68 18 101/53 78 L 08/19/22 02:30 68 18 102/58 97 08/19/22 02:15 69 18 103/60 96 08/19/22 02:00 69 17 102/60 96 40 08/19/22 01:45 68 18 103/59 82 L 08/19/22 01:30 69 18 103/60 97 08/19/22 01:15 68 18 103/58 08/19/22 01:00 68 18 98/57 97 40 08/19/22 00:45 69 18 99/58 97 08/19/22 00:30 71 18 94/58 08/19/22 00:15 73 23 100/61 96 08/19/22 00:00 98.7 F 73 25 H 95/58 98 08/18/22 23:45 66 24 97/58 99 40 08/18/22 23:30 65 21 98/61 99 40 08/18/22 23:16 66 18 98/61 99 08/18/22 23:15 65 18 93/58 99 08/18/22 23:09 40 08/18/22 23:00 65 18 88/55 99 40 08/18/22 22:45 66 18 90/56 99 08/18/22 22:30 66 18 92/56 98 08/18/22 22:15 65 18 89/53 99 08/18/22 22:00 66 18 96/56 100 40 08/18/22 21:45 65 18 87/50 99 08/18/22 21:30 66 38 H 90/54 100 08/18/22 21:15 67 18 98/61 100 08/18/22 21:00 66 19 93/57 99 45 08/18/22 20:45 70 23 99/65 99 08/18/22 20:30 71 22 101/62 99 08/18/22 20:15 72 21 98/65 99 08/18/22 20:00 98.5 F 71 18 99/62 98 45 08/18/22 19:45 71 18 96/62 98 08/18/22 19:30 71 20 95/57 99 08/18/22 19:15 72 18 93/58 99 08/18/22 19:13 40 08/18/22 19:00 71 21 94/56 99 40 08/18/22 18:45 71 20 86/53 99 08/18/22 18:30 73 36 H 83/51 98 08/18/22 18:00 76 18 99/59 96 40 08/18/22 17:30 77 27 H 84/52 98 08/18/22 17:00 73 18 80/53 99 40 08/18/22 16:30 73 18 82/55 99 08/18/22 16:15 40 08/18/22 16:00 98.5 F 74 19 82/49 97 40 08/18/22 15:30 76 17 87/55 95 08/18/22 15:05 40 08/18/22 15:00 80 16 86/59 97 40 08/18/22 14:30 77 20 86/57 97 08/18/22 14:00 79 18 88/56 95 40 08/18/22 13:30 80 21 87/56 95 08/18/22 13:00 81 18 84/55 96 40 08/18/22 12:30 85 18 86/58 95 08/18/22 12:00 99.2 F 91 18 89/59 95 40 08/18/22 11:30 93 18 90/63 95 08/18/22 11:10 40 08/18/22 11:00 96 18 97/65 95 40 08/18/22 10:30 97 18 99/65 95 08/18/22 10:00 99 18 99/68 94 L 40 08/18/22 09:30 100 19 104/67 94 L 08/18/22 09:00 100 18 98/64 95 40 Intake and Output 08/18/22 08/19/22 08/19/22 22:59 06:59 14:59 Intake Total 9936.400 4197.727 368.243 Output Total 250 452 150 Balance 2012.765 8116.727 218.243 Intake: IV 998 900 100 Sodium Chloride 0.9% 1, 500 900 100 000 ml @ 100 mls/hr IV . Q10H [facility] Rx#:[id number] Vancomycin 1,500 mg In 498 Sodium Chloride 0.9% 500 ml 500 ml @ 167 mls/hr IVPB Q24H [facility] Rx#: [id number] Intake, IV Titration 268.828 628.727 258.243 Amount Midazolam HCl 200 mg In 18 58.008 Sodium Chloride 0.9% 60 ml @ 14 MG/HR 7 mls/hr IV .[id number] [facility] Rx#: [id number] Norepinephrine 4 mg In 17.316 320.719 36.706 Sodium Chloride 0.9% 250 ml @ 0.03 MCG/KG/MIN 9. 332 mls/hr IV .Q24H [facility] Rx#:[id number] fentaNYL (PF) 2,500 mcg 233.512 250 221.537 In Sodium Chloride 0.9% 200 ml @ 4 MCG/KG/HR 32. 659 mls/hr IV .Q7H40M [facility] Rx#:[id number] Tube Feeding 30 80 10 Output: Urine 250 452 50 Stool 100 Other: Voiding Method Indwelling Catheter Indwelling Catheter Indwelling Catheter Weight 80 kg Patient is a middle aged male, who is intubated, sedated. Patient is sedated, also appears encephalopathic. Speech and language functions cannot be assessed Attention, concentration decreased due to sedation, and fund of knowledge cannot be assessed due to intubation. On cranial nerve examination, pupils are small 2.5 mm, reacting to 2 mm bilaterally, they are equal, round and reacting to light. Visual bae could not be tested. While checking for oculocephalics, patient started moving her head [id number], as it was uncomfortable and wanted to stop. Patient does have a gag and cough. Other cranial nerves cannot be tested. On muscle strength testing, patient has normal probation agent bilaterally. Patient does move all 4 extremities to painful stimuli. Deep tendon reflexes are symmetric 1 at the biceps, 1 brachioradialis, 2 at the knees, trace ankles and plantars are possibly upgoing bilaterally. Sensory to touch cannot be assessed, but patient does withdraw to painful stimuli in all 4 limbs Cerebellar function cannot be tested. Tone and bulk of muscles normal. Gait deferred.. On general examination, there is no carotid bruit or murmur, S1-S2 audible. Chest is clear on consultation. Abdomen is soft nontender. No organomegaly, bowel sounds present. Peripheral pulses are present. No edema. Results - Laboratory Findings CBC and BMP: 08/20/22 07:10 08/20/22 07:10 Abnormal Lab Findings: Abnormal Labs 08/16/22 08/16/22 08/16/22 20:35 21:19 21:19 WBC RBC Hgb Hct Plt Count Neutrophils # Monocytes # PT INR ABG pH ABG pCO2 ABG pO2 ABG HCO3 ABG Total CO2 ABG O2 Saturation VBG pH VBG pCO2 VBG HCO3 Potassium Chloride Carbon Dioxide BUN Creatinine Glucose POC Glucose (mg/dL) 128 H Plasma Lactic Acid Aiden Calcium Phosphorus Total Bilirubin AST ALT Ammonia Troponin I Total Protein Albumin Amylase Lipase Urine Protein 2+ H Urine Glucose (UA) Trace H Urine Blood Moderate H Urine Bilirubin 1+ H Urine RBC 8 H Urine WBC 10 H Hyaline Casts 218 H Urine Mucus Many H U Benzodiazepines Scrn Detected H U Marijuana (THC) Screen Detected H 08/16/22 08/16/22 08/16/22 21:43 22:00 22:00 WBC 17.2 H RBC 5.95 H Hgb 18.7 H Hct 57.3 H* Plt Count Neutrophils # 13.9 H Monocytes # PT INR ABG pH 7.13 L* ABG pCO2 50 H ABG pO2 240 H ABG HCO3 17 L ABG Total CO2 18 L ABG O2 Saturation 98.8 H VBG pH 7.12 L* VBG pCO2 54 H VBG HCO3 17 L Potassium Chloride Carbon Dioxide BUN Creatinine Glucose POC Glucose (mg/dL) Plasma Lactic Acid Aiden Calcium Phosphorus Total Bilirubin AST ALT Ammonia Troponin I Total Protein Albumin Amylase Lipase Urine Protein Urine Glucose (UA) Urine Blood Urine Bilirubin Urine RBC Urine WBC Hyaline Casts Urine Mucus U Benzodiazepines Scrn U Marijuana (THC) Screen 08/16/22 08/16/22 08/16/22 22:00 22:00 22:00 WBC RBC Hgb Hct Plt Count Neutrophils # Monocytes # PT 13.8 H INR 1.4 H ABG pH ABG pCO2 ABG pO2 ABG HCO3 ABG Total CO2 ABG O2 Saturation VBG pH VBG pCO2 VBG HCO3 Potassium 2.7 L* Chloride Carbon Dioxide 16 L BUN 52 H Creatinine 3.66 H Glucose 155 H POC Glucose (mg/dL) Plasma Lactic Acid Aiden Calcium 7.8 L Phosphorus Total Bilirubin 3.7 H AST 191 H ALT 84 H Ammonia Troponin I 0.304 H* Total Protein Albumin Amylase Lipase Urine Protein Urine Glucose (UA) Urine Blood Urine Bilirubin Urine RBC Urine WBC Hyaline Casts Urine Mucus U Benzodiazepines Scrn U Marijuana (THC) Screen 08/16/22 08/17/22 08/17/22 22:00 00:52 01:05 WBC RBC Hgb Hct Plt Count Neutrophils # Monocytes # PT INR ABG pH ABG pCO2 ABG pO2 ABG HCO3 ABG Total CO2 ABG O2 Saturation VBG pH VBG pCO2 VBG HCO3 Potassium Chloride Carbon Dioxide BUN Creatinine Glucose POC Glucose (mg/dL) 140 H Plasma Lactic Acid Aiden 12.4 H* 5.3 H* Calcium Phosphorus Total Bilirubin AST ALT Ammonia 81 H 31 H Troponin I Total Protein Albumin Amylase Lipase Urine Protein Urine Glucose (UA) Urine Blood Urine Bilirubin Urine RBC Urine WBC Hyaline Casts Urine Mucus U Benzodiazepines Scrn U Marijuana (THC) Screen 08/17/22 08/17/22 08/17/22 01:05 01:15 03:58 WBC RBC Hgb Hct Plt Count Neutrophils # Monocytes # PT 12.8 H INR 1.2 H ABG pH ABG pCO2 ABG pO2 ABG HCO3 ABG Total CO2 ABG O2 Saturation VBG pH VBG pCO2 VBG HCO3 Potassium Chloride Carbon Dioxide BUN Creatinine Glucose POC Glucose (mg/dL) Plasma Lactic Acid Aiden Calcium Phosphorus 9.3 H* Total Bilirubin AST ALT Ammonia Troponin I 0.248 H* Total Protein Albumin Amylase Lipase Urine Protein Urine Glucose (UA) Urine Blood Urine Bilirubin Urine RBC Urine WBC Hyaline Casts Urine Mucus U Benzodiazepines Scrn U Marijuana (THC) Screen 08/17/22 08/17/22 08/17/22 05:49 06:07 07:26 WBC 22.9 H RBC 6.22 H Hgb 19.5 H* Hct 59.1 H* Plt Count 134 L Neutrophils # 17.3 H Monocytes # 1.7 H PT INR ABG pH 7.31 L ABG pCO2 ABG pO2 203 H ABG HCO3 ABG Total CO2 ABG O2 Saturation 99.5 H VBG pH VBG pCO2 VBG HCO3 Potassium Chloride Carbon Dioxide BUN Creatinine Glucose POC Glucose (mg/dL) 130 H Plasma Lactic Acid Aiden Calcium Phosphorus Total Bilirubin AST ALT Ammonia Troponin I Total Protein Albumin Amylase Lipase Urine Protein Urine Glucose (UA) Urine Blood Urine Bilirubin Urine RBC Urine WBC Hyaline Casts Urine Mucus U Benzodiazepines Scrn U Marijuana (THC) Screen 08/17/22 08/17/22 08/17/22 07:26 07:26 11:58 WBC RBC Hgb Hct Plt Count Neutrophils # Monocytes # PT INR ABG pH ABG pCO2 ABG pO2 ABG HCO3 ABG Total CO2 ABG O2 Saturation VBG pH VBG pCO2 VBG HCO3 Potassium Chloride 109 H Carbon Dioxide 16 L BUN 61 H Creatinine 2.75 H Glucose 112 H POC Glucose (mg/dL) 144 H Plasma Lactic Acid Aiden 3.1 H* Calcium 7.3 L Phosphorus 8.4 H Total Bilirubin AST ALT Ammonia Troponin I Total Protein Albumin Amylase 416 H* Lipase 590 H Urine Protein Urine Glucose (UA) Urine Blood Urine Bilirubin Urine RBC Urine WBC Hyaline Casts Urine Mucus U Benzodiazepines Scrn U Marijuana (THC) Screen 08/17/22 08/18/22 08/18/22 18:00 00:39 05:33 WBC 14.3 H RBC Hgb Hct Plt Count 54 L D Neutrophils # 10.8 H Monocytes # 1.2 H PT INR ABG pH ABG pCO2 ABG pO2 ABG HCO3 ABG Total CO2 ABG O2 Saturation VBG pH VBG pCO2 VBG HCO3 Potassium Chloride Carbon Dioxide BUN Creatinine Glucose POC Glucose (mg/dL) 153 H 131 H Plasma Lactic Acid Aiden Calcium Phosphorus Total Bilirubin AST ALT Ammonia Troponin I Total Protein Albumin Amylase Lipase Urine Protein Urine Glucose (UA) Urine Blood Urine Bilirubin Urine RBC Urine WBC Hyaline Casts Urine Mucus U Benzodiazepines Scrn U Marijuana (THC) Screen 08/18/22 08/18/22 08/18/22 05:33 05:59 06:37 WBC RBC Hgb Hct Plt Count Neutrophils # Monocytes # PT INR ABG pH 7.47 H ABG pCO2 54 H ABG pO2 ABG HCO3 39 H ABG Total CO2 41 H ABG O2 Saturation 98.2 H VBG pH VBG pCO2 VBG HCO3 Potassium 3.3 L Chloride Carbon Dioxide 32 H BUN 44 H Creatinine Glucose 148 H POC Glucose (mg/dL) 144 H Plasma Lactic Acid Aiden Calcium 7.1 L Phosphorus Total Bilirubin 2.3 H AST 83 H ALT 80 H Ammonia Troponin I Total Protein 5.7 L Albumin 3.0 L Amylase Lipase Urine Protein Urine Glucose (UA) Urine Blood Urine Bilirubin Urine RBC Urine WBC Hyaline Casts Urine Mucus U Benzodiazepines Scrn U Marijuana (THC) Screen 08/19/22 08/19/22 05:01 07:39 WBC RBC Hgb Hct Plt Count Neutrophils # Monocytes # PT INR ABG pH 7.47 H ABG pCO2 48 H ABG pO2 ABG HCO3 34 H ABG Total CO2 36 H ABG O2 Saturation 97.3 H VBG pH VBG pCO2 VBG HCO3 Potassium Chloride 109 H Carbon Dioxide 31 H BUN 26 H Creatinine Glucose POC Glucose (mg/dL) Plasma Lactic Acid Aiden Calcium 7.5 L Phosphorus Total Bilirubin AST ALT Ammonia Troponin I Total Protein Albumin Amylase Lipase Urine Protein Urine Glucose (UA) Urine Blood Urine Bilirubin Urine RBC Urine WBC Hyaline Casts Urine Mucus U Benzodiazepines Scrn U Marijuana (THC) Screen Assessment and Plan Assessment: * Altered mental status, likely due to toxic metabolic encephalopathy * Patient presented with unresponsiveness, likely due to above. * Alcohol withdrawal * Acute kidney injury, now resolved * Status post shock, likely hypovolemic * Atrial fibrillation with RVR, status post cardioversion * Acute respiratory failure, on mechanical ventilation * Elevated troponin * Gram-positive bacteremia, possibly contaminant. Plan: * Patient is showing meaningful response at this time. Patient is still on sedation with Versed and fentanyl. * CTA reported as negative of the brain. Mild plaque at the carotid artery bifurcation. No evidence of hemodynamic arterial stenosis in the neck. * Check EEG to evaluate for any epileptiform activity * Check B12, folate, TSH. * Neurology will follow. Thank you for the consult.
--- NOTE | 2022-08-19 10:22 | P.PN ---
Subjective Patient is seen in follow-up for acute kidney injury. GFR back to baseline. Creatinine 0.88 today. Nonoliguric. Receiving IV fluids. Also on tube feeds. Intubated. Vital signs are stable. General: Resting in bed. HEENT: Intubated. LUNGS: Breath sounds decreased. HEART: Rate and Rhythm are regular. ABDOMEN: Soft, no distention. EXTREMITITES: No edema. Objective - Vital Signs Vital signs: Vital Signs Temp 99.7 F H 08/19/22 08:00 Pulse 75 08/19/22 10:00 Resp 20 08/19/22 10:00 BP 124/70 08/19/22 10:00 Pulse Ox 100 08/19/22 09:45 FiO2 40 08/19/22 08:00 Intake & Output 08/18/22 08/19/22 08/19/22 18:59 06:59 18:59 Intake Total 2459.454 2247.096 371.354 Output Total 515 587 150 Balance 3818.963 7061.096 221.354 Weight 80 kg Intake: IV 1750 1498 100 Dextrose 5% in Water 1, 150 000 ml @ 150 mls/hr IV . Q7H40M [facility] with Sodium Bicarb (1 Meq/ml) 150 ml Rx#:[id number] Sodium Chloride 0.9% 1, 1000 1000 100 000 ml @ 100 mls/hr IV . Q10H [facility] Rx#:[id number] Thiamine 100 mg In Sodium 100 Chloride 0.9% 50 ml @ 100 mls/hr IVPB Q24HR [facility] Rx#:[id number] Vancomycin 1,500 mg In 500 498 Sodium Chloride 0.9% 500 ml 500 ml @ 167 mls/hr IVPB Q24H [facility] Rx#: [id number] Intake, IV Titration 649.454 639.096 261.354 Amount Midazolam HCl 200 mg In 123.383 58.008 Sodium Chloride 0.9% 60 ml @ 14 MG/HR 7 mls/hr IV .[id number] [facility] Rx#: [id number] Norepinephrine 4 mg In 6.947 331.088 39.817 Sodium Chloride 0.9% 250 ml @ 0.03 MCG/KG/MIN 9. 332 mls/hr IV .Q24H [facility] Rx#:[id number] Sodium Chloride 0.9% 1, 100 000 ml @ 100 mls/hr IV . Q10H [facility] Rx#:[id number] fentaNYL (PF) 2,500 mcg 419.124 250 221.537 In Sodium Chloride 0.9% 200 ml @ 4 MCG/KG/HR 32. 659 mls/hr IV .Q7H40M [facility] Rx#:[id number] Tube Feeding 110 10 Other 60 Output: Urine 415 587 50 Stool 100 100 Other: Voiding Method Indwelling Catheter Indwelling Catheter Indwelling Catheter - Labs CBC & Chem 7: 08/18/22 05:33 08/19/22 07:39 Labs: Abnormal Lab Results - Last 24 Hours (Table) 08/19/22 08/19/22 Range/Units 05:01 07:39 ABG pH 7.47 H (7.35-7.45) ABG pCO2 48 H (35-45) mmHg ABG HCO3 34 H (21-25) mmol/L ABG Total CO2 36 H (19-24) mmol/L ABG O2 Saturation 97.3 H (94-97) % Chloride 109 H (98-107) mmol/L Carbon Dioxide 31 H (22-30) mmol/L BUN 26 H (9-20) mg/dL Calcium 7.5 L (8.4-10.2) mg/dL Microbiology - Last 24 Hours (Table) 08/17/22 00:38 Gram Stain - Preliminary Sputum Sputum Culture - Preliminary Presumptive Staph aureus Assessment and Plan Plan: Assessment: 1. Acute kidney injury secondary to hemodynamic ATN. Creatinine 2.66 on a dmission and is 0.88 today. Patient received IV contrast for CT angiogram and CT of the chest abdomen and pelvis on 08/16/2022 which were negative. No hydronephrosis was noted. Creatinine in August 2018 was 1. 2. Alcohol withdrawal. 3. Metabolic acidosis secondary to acute kidney injury and lactic acidosis. Status post bicarb drip. Resolved. 4. Hypokalemia from poor intake and intracellular shifting. Replaced. Better. 5. Altered mental status. ?Etiology. Staph aureus bacteremia. On antibiotics. Plan: Maintain IV fluids. Also receiving tube feeds. Avoid nephrotoxins. Continue to monitor renal function and urine output. Wean FiO2. I will sign off. Please call with any questions or concerns.
--- NOTE | 2022-08-19 11:05 | P.PN ---
Subjective Progress Note Date: 08/19/22 Hospital Course: 57-year-old male with history of alcohol dependence/abuse, atrial fibrillation presented with altered mentation and possible code stroke. On arrival, patient was hemodynamically unstable, in A. fib with RVR, patient was intubated and cardioverted to normal sinus rhythm. CT had showed no acute process, interventional neurology lion tamer did not recommend to give alteplase. Re portedly, patient has been binge drinking, his last drink was on August 11. Per family patient was vomiting prior to becoming unresponsive. His initial labs were consistent with severe dehydration, pH of 7.13, potassium 2.7, creatinine of 3.66, lactic acid of 12.4, mild transaminitis, mild elevated troponin, urine tox positive for benzos and marijuana. Currently patient remains intubated, not requiring any pressors, currently on sedation, renal function improving with IV fluids. There is also concern for possible GI bleed, patient on IV Protonix, surgery following. Nephrology and ICU also following. Subjective: Patient seen and examined at bedside. No acute events overnight. Currently he remains intubated and sedated. Per nursing, his urine output is getting better. He has been having significant amount of diarrhea. Pertinent positives and negatives as discussed above, a complete review of systems was performed and all other systems are negative. Vitals Signs Reviewed. Vital signs reviewed General: Intubated and sedated Derm: warm, dry Head: atraumatic, normocephalic, symmetric Eyes: Pupils pinpoint equal and reactive Mouth: no lip lesion, mucus membranes moist Cardiovascular: S1S2 reg, no murmur, positive posterior tibial pulse bilateral, Lungs: Clear to auscultation bilaterally, mechanical ventilation Abdominal: soft, nondistended, no rigidity, no appreciable organomegaly, NG tube in place , rectal tube Ext: no gross muscle atrophy, no edema, no contractures Neuro: Sedated Psych: Unable to assess Assessment/Plan: Shock, likely hypovolemic - resolved A. fib with RVR status post cardioversion Acute metabolic encephalopathy Acute hypoxic and hypercapnic respiratory failure status post intubation Acute kidney injury - resolved Uremia - resolving Severe hypokalemia -resolved Severe hyperphosphatemia - resolved Hyperammonemia Elevated troponin High anion gap metabolic acidosis secondary to Severe lactic acidosis - resolved History of alcohol abuse Gram-positive bacteremia -Continue ICU care -Continue IV fluids -Monitor urine output and renal function, renal ultrasound showed no hydronephrosis -Electrolytes improving, continue to monitor -IV PPI twice a day -Gen. surgery , and nephrology, and cardiology following -First set of blood cultures positive for staph aureus and epidermidis, likely contaminant. however, sputum culture also showing staph -Patient currently on vancomycin, repeat blood cultures pending -Continue to wean sedation, possible extubation in 1-2 days DVT ppx: Lovenox Code status: Full code Anticipated discharge place: Pending clinical course Anticipated discharge time: Pending clinical course Objective - Vital Signs Vital signs: Vital Signs Temp 99.7 F H 08/19/22 08:00 Pulse 75 08/19/22 10:00 Resp 20 08/19/22 10:00 BP 124/70 08/19/22 10:00 Pulse Ox 100 08/19/22 09:45 FiO2 40 08/19/22 08:00 Intake & Output 08/18/22 08/19/22 08/19/22 18:59 06:59 18:59 Intake Total 2459.454 2247.096 371.354 Output Total 515 587 150 Balance 2235.511 8126.096 221.354 Weight 80 kg Intake: IV 1750 1498 100 Dextrose 5% in Water 1, 150 000 ml @ 150 mls/hr IV . Q7H40M [facility] with Sodium Bicarb (1 Meq/ml) 150 ml Rx#:[id number] Sodium Chloride 0.9% 1, 1000 1000 100 000 ml @ 100 mls/hr IV . Q10H [facility] Rx#:[id number] Thiamine 100 mg In Sodium 100 Chloride 0.9% 50 ml @ 100 mls/hr IVPB Q24HR [facility] Rx#:[id number] Vancomycin 1,500 mg In 500 498 Sodium Chloride 0.9% 500 ml 500 ml @ 167 mls/hr IVPB Q24H [facility] Rx#: [id number] Intake, IV Titration 649.454 639.096 261.354 Amount Midazolam HCl 200 mg In 123.383 58.008 Sodium Chloride 0.9% 60 ml @ 14 MG/HR 7 mls/hr IV .[id number] [facility] Rx#: [id number] Norepinephrine 4 mg In 6.947 331.088 39.817 Sodium Chloride 0.9% 250 ml @ 0.03 MCG/KG/MIN 9. 332 mls/hr IV .Q24H [facility] Rx#:[id number] Sodium Chloride 0.9% 1, 100 000 ml @ 100 mls/hr IV . Q10H [facility] Rx#:[id number] fentaNYL (PF) 2,500 mcg 419.124 250 221.537 In Sodium Chloride 0.9% 200 ml @ 4 MCG/KG/HR 32. 659 mls/hr IV .Q7H40M [facility] Rx#:[id number] Tube Feeding 110 10 Other 60 Output: Urine 415 587 50 Stool 100 100 Other: Voiding Method Indwelling Catheter Indwelling Catheter Indwelling Catheter - Labs CBC & Chem 7: 08/18/22 05:33 08/19/22 07:39 Labs: Abnormal Lab Results - Last 24 Hours (Table) 08/19/22 08/19/22 Range/Units 05:01 07:39 ABG pH 7.47 H (7.35-7.45) ABG pCO2 48 H (35-45) mmHg ABG HCO3 34 H (21-25) mmol/L ABG Total CO2 36 H (19-24) mmol/L ABG O2 Saturation 97.3 H (94-97) % Chloride 109 H (98-107) mmol/L Carbon Dioxide 31 H (22-30) mmol/L BUN 26 H (9-20) mg/dL Calcium 7.5 L (8.4-10.2) mg/dL Microbiology - Last 24 Hours (Table) 08/18/22 08:29 Blood Culture - Preliminary Blood No Growth after 24 hours 08/17/22 00:38 Gram Stain - Preliminary Sputum Sputum Culture - Preliminary Presumptive Staph aureus
[2022-08-19 12:00] LABS: Glucose,Whole Blood 87 mg/dL (70-110)
--- NOTE | 2022-08-19 12:00 | P.PN ---
Subjective Progress Note Date: 08/19/22 Principal diagnosis: Acute hypoxic and hypercapnic respiratory failure 57-year-old male patient with known history of alcoholism and known history of chronic into fibrillation. The patient arrived to the emergency department yesterday for altered mentation suspecting a possible stroke. EMS stated that the patient was at home, and he was in his normal self at around 7:30 PM. Subsequently at around 8 PM, he was found face down in bed unresponsive. In the emergency, the patient was found to be hypotensive. EMS was supporting his breathing by bagging and the patient was having agonal breathing. It was reported to us that the patient is an alcoholic and he was binge drinking. There is also history of emesis and apparently the patient was having significant amount of emesis and ultimately collapsed and he was unable to stand up anymore. In the emergency, the patient was found to have a heart rate of 220. Initial blood pressure was 50/30. He was having agonal breathing. He was not following any commands. Code stroke was activated. Patient was unable to protect his airway. At that point, he was intubated and he was given a 7 ET tube. He was given a total of 3 L of fluid normal saline bolus. CAT scan of the brain was done in addition to a CT angiogram of the head and the neck. The CAT scans were negative. Case was discussed with intervention neurology and no further treatment was done. Initial blood work showed a lactic acid level of 12.4. The patient also will was found to have a potassium level of 2.7. He was in acute kidney injury with a BUN of 52 and a creatinine of 3.6. Sodium level was at 141. Troponins were positive at levels of 0.3 and 0.2 respectively. AST was 191. He was 84 bilirubin was 3.7 calcium was 7.8. His white cell count was 17.2 with a hemoglobin 18.7. INR was 1.4 with a PT of 17.8 and a PTT of 23. Urine drug screen was positive for benzodiazepines and marijuana. Alcohol level was negative. UA was positive for protein, 10 WBCs, 8 RBCs. The chest x-ray was essentially clear. Posterior intubation chest x-ray showed adequate positioning of 82. Vision also has a G-tube in place. No evidence of any pneu mothorax. Subsequent lactic acid level dropped down to 5.3. At this point in time, the patient is intubated on a mechanical ventilator. He is on a Versed drip running at 11 mg/m and fentanyl drip running at 2 Todd respiratory kilogram per hour. His assist-control mode of mechanical ventilation at the rate of 18 with a tidal volume of 400 FiO2 of 50% with a PEEP of 5. Most recent blood gas showed a pH of 7.31 with a pCO2 of 43 and pO2 of 203. IV fluids are currently in the form of normal saline at rate of 1 50 mL an hour. Urine output is adequate and the patient is producing white daryl urine. Repeat electrodes from today are still pending. He was placed on IV heparin. He is on no pressors for now. Note that the patient also had a CAT scan of the chest abdomen and pelvis in the emergency department that showed no significant abnormalities. On today's evaluation of 08/18/2022, the patient is still intubated on a mechanical ventilator. He is very much dependent on sedation as the patient is quite agitated once off sedation. This morning, he is on a combination of Versed at 40 mg an hour and is also on fentanyl and at 4 mcg/kg/h. I was told by the nursing staff that he gets quite agitated when the sedation runs of and this has been noted by the nursing staff. Note that no purposeful activity or following commands and his mentation is not appropriate at this point in time. There may be a component of delirium tremens of this patient. He is a long-time alcoholic. In [facility], another sedation holiday will be given today and his mental status will be reassessed during the day. Meanwhile, this morning, he is on assist-control mode at a rate of 18 with a tidal volume of 400 and FiO2 was at 45% with a PEEP of 5. His chest x-ray showed no acute abnormalities and EKG was in a good location. No significant orotracheal secretions. The blood gas is showing a component of alkalosis as the patient was being given bicarb infusion. His patient's pH is at 7.47 with a pCO2 of 54 and pO2 of 90. On his blood work, the renal function has improved. The patient's creatinine is down to 1.23 with a BUN of 44. Sodium is at 143 and potassium is at 3.70 severity replaced. Serum bicarb is up to 32. WBC was at 14.3 and hematocrit is 49 with a platelet count that is pending for now. Note that her amylase and lipase was slightly elevated and there may be a component of pancreatitis along with alcoholic hepatitis. Blood culture was positive for staph aureus and staph epidermidis. I'm not sure if this is a true infection versus a contaminant. This was only in 1 out of 2 bottles. Another set of blood cultures will be obtained. Noted the patient was given a dose of vancomycin pending further cultures. He is on Lovenox portably prophylaxis. He remains nothing by mouth. No pressors for now. Renal ultrasound was completed yesterday and it showed no evidence of any hydronephrosis. Reevaluated today on 08/19/2022, patient remains in the ICU, intubated and mechanically ventilated. Patient is on assist control rate of 18 tidal volume 400 FiO2 40% and PEEP of 5 ABG showed a pO2 of 84 pCO2 48 pH of 7.47. Patient remains on fentanyl at 4 mcg/kg/h, norepinephrine at 0.01 mcg/kg/m, Versed at 15 mg per hour and he is on IV fluid at the cc per hour in the form of 0.9 normal saline. Patient is receiving vital HPI at 10 mL per hour. Continues to have extreme agitations in spite of sedation, patient is arousable, and gets agitated very easily. Chest x-ray not done today, but chest x-ray from yesterday showed no evidence of infiltrate. Seen by neurology today, felt to have toxic metabolic encephalopathy and alcohol withdrawal. Considering the patient's agitation, he is obviously not a candidate for weaning and extubation at this point. Basic metabolic profile is normal, renal profile is normal. Brain CT on admission showed no intracranial abnormality Objective - Vital Signs Vital signs: Vital Signs Temp 99.7 F H 08/19/22 08:00 Pulse 66 08/19/22 11:00 Resp 20 08/19/22 11:00 BP 92/50 08/19/22 11:00 Pulse Ox 100 08/19/22 11:00 FiO2 40 08/19/22 11:26 Intake & Output 08/18/22 08/19/22 08/19/22 18:59 06:59 18:59 Intake Total 2459.454 2247.096 1221.354 Output Total 515 587 275 Balance 9617.982 4456.096 946.354 Weight 80 kg 80 kg Intake: IV 1750 1498 950 Dextrose 5% in Water 1, 150 000 ml @ 150 mls/hr IV . Q7H40M [facility] with Sodium Bicarb (1 Meq/ml) 150 ml Rx#:[id number] Sodium Chloride 0.9% 1, 1000 1000 400 000 ml @ 100 mls/hr IV . Q10H [facility] Rx#:[id number] Thiamine 100 mg In Sodium 100 50 Chloride 0.9% 50 ml @ 100 mls/hr IVPB Q24HR [facility] Rx#:[id number] Vancomycin 1,500 mg In 500 Sodium Chloride 0.9% 500 ml 500 ml @ 167 mls/hr IVPB Q12H [facility] Rx#: [id number] Vancomycin 1,500 mg In 500 498 Sodium Chloride 0.9% 500 ml 500 ml @ 167 mls/hr IVPB Q24H [facility] Rx#: [id number] Intake, IV Titration 649.454 639.096 261.354 Amount Midazolam HCl 200 mg In 123.383 58.008 Sodium Chloride 0.9% 60 ml @ 14 MG/HR 7 mls/hr IV .[id number] [facility] Rx#: [id number] Norepinephrine 4 mg In 6.947 331.088 39.817 Sodium Chloride 0.9% 250 ml @ 0.03 MCG/KG/MIN 9. 332 mls/hr IV .Q24H [facility] Rx#:[id number] Sodium Chloride 0.9% 1, 100 000 ml @ 100 mls/hr IV . Q10H [facility] Rx#:[id number] fentaNYL (PF) 2,500 mcg 419.124 250 221.537 In Sodium Chloride 0.9% 200 ml @ 4 MCG/KG/HR 32. 659 mls/hr IV .Q7H40M [facility] Rx#:[id number] Tube Feeding 110 10 Other 60 Output: Urine 415 587 175 Stool 100 100 Other: Voiding Method Indwelling Catheter Indwelling Catheter Indwelling Catheter - Exam Physical Exam: Revealed 57-year-old white male intubated, mechanically ventilated, on Versed and on fentanyl. Head: Atraumatic, normocephalic. Endotracheal tube and orogastric tube are intact. HEENT:[Neck is supple.] [No neck masses.] [No thyromegaly.] [No JVD.] Chest: [Clear throughout, no crackles, no rhonchi, no wheezes.] Cardiac Exam: [Normal S1 and S2, no S3 gallop, no murmur.] Abdomen: [Soft, nontender, no megaly, no rebound, no guarding, normal bowel sounds.] Extremities: [No clubbing, no edema, no cyanosis.] Neurological Exam: Sedated, follows simple instructions however gets agitated very easily in spite of sedation on board. Psychiatric : Could not assess. Gets extremely agitated easily. Musculoskeletal: No deformities. Skin: No rashes - Labs CBC & Chem 7: 08/18/22 05:33 08/19/22 07:39 Labs: Abnormal Lab Results - Last 24 Hours (Table) 08/19/22 08/19/22 Range/Units 05:01 07:39 ABG pH 7.47 H (7.35-7.45) ABG pCO2 48 H (35-45) mmHg ABG HCO3 34 H (21-25) mmol/L ABG Total CO2 36 H (19-24) mmol/L ABG O2 Saturation 97.3 H (94-97) % Chloride 109 H (98-107) mmol/L Carbon Dioxide 31 H (22-30) mmol/L BUN 26 H (9-20) mg/dL Calcium 7.5 L (8.4-10.2) mg/dL Microbiology - Last 24 Hours (Table) 08/18/22 08:29 Blood Culture - Preliminary Blood No Growth after 24 hours 08/17/22 00:38 Gram Stain - Preliminary Sputum Sputum Culture - Preliminary Presumptive Staph aureus Assessment and Plan Assessment: Impression: Acute hypoxic and hypercapnic respiratory failure, mostly because the patient was unable to protect his airways upon his initial presentation, patient required intubation for airways protection. And he was encephalopathic with mental status change upon his initial presentation. Altered mental status, possibly metabolic encephalopathy, suspect alcohol withdrawal. Severe lactic acidosis on admission, with hypovolemia, resolved. Hypovolemic hypotension Anion gap metabolic acidosis, resolved. Positive blood cultures for staph epidermidis, felt to be a contamination. History of alcoholism Acute kidney injury with hypovolemia, resolved. History of paroxysmal atrial fibrillation Benign essential hypertension Dyslipidemia Recommendation: Continue ventilatory support, considering his overall neurological status and agitation, not quite ready for weaning trials Continue GI and DVT prophylaxis patient is on Lovenox and on Protonix. Continue hemodynamic support if necessary, patient is not requiring much norepinephrine and that will be discontinued today. Continue sedation Continue nutritional support. Continue IV thiamine. Continue to monitor daily labs and address accordingly Urology to see her on consultation. Patient remains critical, prognosis is relatively guarded. Critical care time is over 30 minutes. We'll continue to follow Time with Patient: Greater than 30
--- NOTE | 2022-08-19 15:28 | P.PN ---
Subjective Progress Note Date: 08/19/22 CHIEF COMPLAINT: Upper GI bleed HISTORY OF PRESENT ILLNESS: Patient remains in the ICU on mechanical vent ilation. Patient has been having diarrhea had FMS placed. Stool is brown. C. diff is negative. NG tube currently has had no further blood noted. Tube feedings had been started. Afebrile. WBC is 14 hemoglobin is 16 platelets are down to 54 sodium 143 potassium 4.0 creatinine 0.88 magnesium 1.8 PHYSICAL EXAM: VITAL SIGNS: Reviewed. GENERAL: Well-developed in no acute distress. HEENT: No sclera icterus. Extraocular movements grossly intact. Moist buccal mucosa. Head is atraumatic, normocephalic. ABDOMEN: Soft. Nondistended. NEUROLOGIC: Intubated and sedated ASSESSMENT: 1. Acute GI bleed. No longer having bleeding through NG tube. Stools are brown. PLAN: -Continue ICU management -Continue PPI -Continue monitor hemoglobin Physician Pen And Pencil Repairer note has been reviewed by physician. Signing provider agrees with the documented findings, assessment, and plan of care. Objective - Vital Signs Vital signs: Vital Signs Temp 99.4 F 08/19/22 12:00 Pulse 61 08/19/22 12:00 Resp 22 08/19/22 12:00 BP 91/52 08/19/22 12:00 Pulse Ox 100 08/19/22 12:00 FiO2 40 08/19/22 12:00 Intake & Output 08/18/22 08/19/22 08/19/22 18:59 06:59 18:59 Intake Total 2459.454 2247.096 1361.354 Output Total 515 587 305 Balance 7807.063 6250.096 1056.354 Weight 80 kg 80 kg Intake: IV 1750 1498 1050 Dextrose 5% in Water 1, 150 000 ml @ 150 mls/hr IV . Q7H40M [facility] with Sodium Bicarb (1 Meq/ml) 150 ml Rx#:[id number] Sodium Chloride 0.9% 1, 1000 1000 500 000 ml @ 100 mls/hr IV . Q10H [facility] Rx#:[id number] Thiamine 100 mg In Sodium 100 50 Chloride 0.9% 50 ml @ 100 mls/hr IVPB Q24HR [facility] Rx#:[id number] Vancomycin 1,500 mg In 500 Sodium Chloride 0.9% 500 ml 500 ml @ 167 mls/hr IVPB Q12H [facility] Rx#: [id number] Vancomycin 1,500 mg In 500 498 Sodium Chloride 0.9% 500 ml 500 ml @ 167 mls/hr IVPB Q24H [facility] Rx#: [id number] Intake, IV Titration 649.454 639.096 261.354 Amount Midazolam HCl 200 mg In 123.383 58.008 Sodium Chloride 0.9% 60 ml @ 14 MG/HR 7 mls/hr IV .[id number] [facility] Rx#: [id number] Norepinephrine 4 mg In 6.947 331.088 39.817 Sodium Chloride 0.9% 250 ml @ 0.03 MCG/KG/MIN 9. 332 mls/hr IV .Q24H [facility] Rx#:[id number] Sodium Chloride 0.9% 1, 100 000 ml @ 100 mls/hr IV . Q10H [facility] Rx#:[id number] fentaNYL (PF) 2,500 mcg 419.124 250 221.537 In Sodium Chloride 0.9% 200 ml @ 4 MCG/KG/HR 32. 659 mls/hr IV .Q7H40M [facility] Rx#:[id number] Tube Feeding 110 20 Other 60 30 Output: Urine 415 587 205 Stool 100 100 Other: Voiding Method Indwelling Catheter Indwelling Catheter Indwelling Catheter - Labs CBC & Chem 7: 08/18/22 05:33 08/19/22 07:39 Labs: Abnormal Lab Results - Last 24 Hours (Table) 08/19/22 08/19/22 Range/Units 05:01 07:39 ABG pH 7.47 H (7.35-7.45) ABG pCO2 48 H (35-45) mmHg ABG HCO3 34 H (21-25) mmol/L ABG Total CO2 36 H (19-24) mmol/L ABG O2 Saturation 97.3 H (94-97) % Chloride 109 H (98-107) mmol/L Carbon Dioxide 31 H (22-30) mmol/L BUN 26 H (9-20) mg/dL Calcium 7.5 L (8.4-10.2) mg/dL Microbiology - Last 24 Hours (Table) 08/18/22 08:29 Blood Culture - Preliminary Blood No Growth after 24 hours 08/17/22 00:38 Gram Stain - Preliminary Sputum Sputum Culture - Preliminary Presumptive Staph aureus
--- NOTE | 2022-08-19 16:01 | XR ---
EXAMINATION TYPE: XR chest 1V portable DATE OF EXAM: 08/19/2022 3:49 PM COMPARISON: Chest radiograph from one day prior. TECHNIQUE: XR chest 1V portable Portable AP radiograph of the chest. CLINICAL INDICATION:Male, 57 years old with history of Tube placement; FINDINGS: Lungs/Pleura: Minimal opacities project over the heart on the left without significant change from pr ior. There is no evidence of pleural effusion, focal consolidation, or pneumothorax. Pulmonary vascularity: Unremarkable. Heart/mediastinum: Cardiomediastinal silhouette is unremarkable. Musculoskeletal: No acute osseous pathology. Lines/Tubes: Endotracheal tube with distal tip 5.8 cm above the dany. Nasogastric tube with its distal tip and side-port projecting under the diaphragm. IMPRESSION: 1. Endotracheal tube in appropriate position, no significant change from one day prior. 2. Minimal left lower lung airspace opacities. 3.
[2022-08-19] MEDS ORDERED: VANCOMYCIN TROUGH DUE 1 EACH MISC MISCELLANE ONE (19:00)
--- NOTE | 2022-08-19 22:47 | PN ---
PROGRESS NOTE SUBJECTIVE: A 57-year-old gentleman, who is admitted to hospital with unresponsiveness, was found to be in atrial fibrillation with rapid ventricular rate. The patient is sedated, intubated, and has had issues with alcohol withdrawal. His elevated troponin was thought to be secondary to respiratory failure. OBJECTIVE: GENERAL: On exam today, the patient is intubated, vented, and sedated. VITAL SIGNS: Heart rate is 66 beats per minute, blood pressure , respiratory rate 18, O2 saturation is 100. NECK: There is no jugular venous distention. CHEST: Reveals good air entry bilaterally. HEART: Reveals first and second heart sounds. No gallop. No murmur. ABDOMEN: Soft. EXTREMITIES: Did not reveal any edema. Peripheral pulses are felt. LABORATORY DATA: Labs show that the potassium is 4, creatinine is 0.8; hemoglobin is 16.4, and his platelet count is low at 54. MEDICATIONS: The patient is currently on Lopressor 25 b.i.d. ASSESSMENT: Paroxysmal atrial fibrillation. PLAN: The patient is currently in sinus rhythm. He has thrombocytopenia of unclear etiology. Please have Hematology review the patient. Hold the [email or web address]. MMODL / IJN: [id number] /
[2022-08-19 23:43] LABS: Glucose,Whole Blood 83 mg/dL (70-110)
--- NOTE | 2022-08-20 02:08 | EEG ---
ELECTROENCEPHALOGRAM REPORT PREAMBLE: This is a 57-year-old male with episode of unresponsiveness and altered mental status. This study is performed to evaluate for any epileptiform activity. EEG FINDINGS: This is a 21-channel digital EEG recorded with video component, utilizing 10/20 international system with referential and bipolar montages. Background consists of slightly asymmetric background, with relatively higher amplitude activity in the left hemispheric region, probably related to breach rhythm due to previous craniotomy defect. Otherwise, the background consists of diffusely moderate voltage activity in mixed theta and delta slowing in bihemispheric region. Different stages of sleep were not clearly seen. No definitive focal or generalized epileptiform activity was seen. IMPRESSION: This is an abnormal EEG due to: 1. Amplitude asymmetry with relatively higher amplitude activity in the left frontoparietal region due to breach rhythm from previous craniotomy defect. 2. Background slowing of zazijeax-rr-eydsmo degree, consistent with generalized cerebral dysfunction as can be seen with toxic metabolic encephalopathy or due to diffuse structural brain abnormality. Clinical correlation is recommended. No definitive epileptiform activity was seen. MMODL / IJN: [id number] /
[2022-08-20] MEDS: MIDAZOLAM HCL 200 MG in SODIUM CHLORIDE 0.9% 60 ML IV SCH ×3 (02:26→21:50)
[2022-08-20 05:11] LABS: ABG Base Excess 7.5 mmol/L; ABG HCO3 32 mmol/L (21-25); ABG Oxygen Saturation 98.4 % (94-97); ABG PCO2 51 mmHg (35-45); ABG PH 7.41 (7.35-7.45); ABG PO2 100 mmHg (83-108); ABG TCO2 34 mmol/L (19-24); Allen Test Performed? Yes
[2022-08-20 05:26] LABS: Glucose,Whole Blood 78 mg/dL (70-110)
[2022-08-20] MEDS: SODIUM CHLORIDE 0.9% 1,000 ML IV SCH (05:30)
[2022-08-20] MEDS: fentaNYL (PF) 2,500 MCG in SODIUM CHLORIDE 0.9% 200 ML IV SCH ×4 (05:31→23:17)
[2022-08-20 07:43] LABS: Basophils % (A) 0 %; Eosinophils # (A) 0.4 k/uL (0-0.7); Eosinophils % (A) 7 %; HGB 11.8 gm/dL (13.0-17.5); Lymphocytes # (A) 1.1 k/uL (1.0-4.8); Lymphocytes % (A) 18 %; MCH 31.8 pg (25.0-35.0); MCHC 32.9 g/dL (31.0-37.0); MCV 96.7 fL (80.0-100.0); Mean Platelet Volume 11.2; Monocytes # (A) 0.6 k/uL (0-1.0); Monocytes % (A) 10 %; Neutrophils # (A) 3.6 k/uL (1.3-7.7); Neutrophils % (A) 61 %; RBC 3.72 m/uL (4.30-5.90); RDW 13.3 % (11.5-15.5); WBC 5.8 k/uL (3.8-10.6)
[2022-08-20 07:45] LABS: Platelet Count 61 k/uL (150-450)
[2022-08-20 07:48] LABS: African American GFR (CKD) >90 (>60 ml/min/1.73 sqM); Anion Gap 2 mmol/L; Blood Urea Nitrogen 15 mg/dL (9-20); Calcium 7.5 mg/dL (8.4-10.2); Carbon Dioxide 32 mmol/L (22-30); Chloride 111 mmol/L (98-107); Glucose 88 mg/dL (74-99); Magnesium 1.8 mg/dL (1.6-2.3); Non-African American GFR(CKD) >90 (>60 ml/min/1.73 sqM); Potassium 2.9 mmol/L (3.5-5.1); Sodium 145 mmol/L (137-145)
[2022-08-20] MEDS: VANCOMYCIN 1,500 MG in SODIUM CHLORIDE 0.9% 500 ML 500 ML IVPB SCH ×2 (07:57→20:12)
[2022-08-20] MEDS: PANTOPRAZOLE 40 MG/10 ML VIAL IVP SCH ×2 (08:00→20:13)
[2022-08-20] MEDS: THIAMINE 100 MG in SODIUM CHLORIDE 0.9% 50 ML IVPB SCH (08:00)
[2022-08-20] MEDS: CHLORHEXIDINE GLUCONATE 15 ML CUP MUCOUS MEM SCH ×2 (08:00→20:13)
[2022-08-20] MEDS: METOPROLOL TARTRATE 25 MG TAB PO SCH ×2 (08:00→20:13)
[2022-08-20] MEDS: ENOXAPARIN 40 MG/0.4 ML SYRINGE SQ SCH (08:00)
[2022-08-20] MEDS ORDERED: Magnesium Replacement Protocol 1 EACH MISC MISCELLANE PRN (08:12)
--- NOTE | 2022-08-20 08:25 | XR ---
EXAMINATION TYPE: XR chest 1V portable DATE OF EXAM: 08/20/2022 Comparison: 08/19/2022 Clinical History: 57-year-old male Tube placement Findings: ET tube satisfactory. NG tube courses below the diaphragm. Heart upper limits of normal in size. Mild patchy perihilar density. No consolidation or pleural effusion. ACDF hardware. Impression: Mild areas of perihilar atelectasis. No significant interval change.
[2022-08-20] MEDS: POTASSIUM BICARBONATE/CIT AC 20 MEQ TABLET.EFF NG-TUBE SCH ×3 (09:30→11:03)
[2022-08-20] MEDS: MAGNESIUM SULFATE-D5W PMX 1 GM in DEXTROSE/WATER 1 100ML.BAG IVPB SCH ×2 (09:30→11:02)
[2022-08-20] MEDS: DEXTROSE 5%-0.45% NACL 1,000 ML IV SCH ×2 (09:31→20:14)
--- NOTE | 2022-08-20 10:41 | P.PN ---
Subjective Patient is seen in follow-up for acute kidney injury. GFR back to baseline. Potassium is low and is being replaced. Nonoliguric. Receiving IV fluids. Also on tube feeds. Intubated. Vital signs are stable. General: Resting in bed. HEENT: Intubated. LUNGS: Breath sounds decreased. HEART: Rate and Rhythm are regular. ABDOMEN: Soft, no distention. EXTREMITITES: No edema. Objective - Vital Signs Vital signs: Vital Signs Temp 97.8 F 08/20/22 08:00 Pulse 57 L 08/20/22 09:00 Resp 18 08/20/22 09:00 BP 94/53 08/20/22 09:00 Pulse Ox 100 08/20/22 09:00 FiO2 40 08/20/22 08:10 Intake & Output 08/19/22 08/20/22 08/20/22 18:59 06:59 18:59 Intake Total 2445.613 2842.050 862.876 Output Total 1340 510 53 Balance 0923.961 5482.050 809.876 Weight 80 kg 86.1 kg Intake: IV 1650 1700 650 Sodium Chloride 0.9% 1, 1100 1200 100 000 ml @ 100 mls/hr IV . Q10H [facility] Rx#:[id number] Thiamine 100 mg In Sodium 50 50 Chloride 0.9% 50 ml @ 100 mls/hr IVPB Q24HR [facility] Rx#:[id number] Vancomycin 1,500 mg In 500 500 500 Sodium Chloride 0.9% 500 ml 500 ml @ 167 mls/hr IVPB Q12H [facility] Rx#: [id number] Intake, IV Titration 625.613 772.050 102.876 Amount Midazolam HCl 200 mg In 67.625 96.292 Sodium Chloride 0.9% 60 ml @ 14 MG/HR 7 mls/hr IV .[id number] [facility] Rx#: [id number] Norepinephrine 4 mg In 91.508 179.183 Sodium Chloride 0.9% 250 ml @ 0.03 MCG/KG/MIN 9. 332 mls/hr IV .Q24H [facility] Rx#:[id number] fentaNYL (PF) 2,500 mcg 466.480 496.575 102.876 In Sodium Chloride 0.9% 200 ml @ 4 MCG/KG/HR 32. 659 mls/hr IV .[id number] [facility] Rx#:[id number] Tube Feeding 110 280 80 Other 60 90 30 Output: Urine 440 510 53 Stool 900 Other: Voiding Method Indwelling Catheter Indwelling Catheter Indwelling Catheter - Labs CBC & Chem 7: 08/20/22 07:10 08/20/22 07:10 Labs: Abnormal Lab Results - Last 24 Hours (Table) 08/20/22 08/20/22 08/20/22 Range/Units 05:08 07:10 07:10 RBC 3.72 L (4.30-5.90) m/uL Hgb 11.8 L D (13.0-17.5) gm/dL Hct 36.0 L (39.0-53.0) % Plt Count 61 L (150-450) k/uL ABG pCO2 51 H (35-45) mmHg ABG HCO3 32 H (21-25) mmol/L ABG Total CO2 34 H (19-24) mmol/L ABG O2 Saturation 98.4 H (94-97) % Potassium 2.9 L (3.5-5.1) mmol/L Chloride 111 H (98-107) mmol/L Carbon Dioxide 32 H (22-30) mmol/L Calcium 7.5 L (8.4-10.2) mg/dL Microbiology - Last 24 Hours (Table) 08/16/22 20:37 Blood Culture Gram Stain - Preliminary Blood Blood Culture - Preliminary Staphylococcus aureus Staphylococcus epidermidis Coagulase Negative Staph 08/17/22 00:38 Gram Stain - Final Sputum Sputum Culture - Final Staphylococcus aureus 08/18/22 08:29 Blood Culture - Preliminary Blood No Growth after 24 hours Assessment and Plan Plan: Assessment: 1. Acute kidney injury secondary to hemodynamic ATN. Creatinine 2.66 on admission and is 0.68 today. Patient received IV contrast for CT angiogram and CT of the chest abdomen and pelvis on 08/16/2022 which were negative. No hydronephrosis was noted. Creatinine in August 2018 was 1. 2. Alcohol withdrawal. 3. Metabolic acidosis secondary to acute kidney injury and lactic acidosis. Status post bicarb drip. Resolved. 4. Hypokalemia from poor intake and saline diuresis. Being replaced. 5. Altered mental status. ?Etiology. Staph aureus bacteremia. On antibiotics. 6. Mild hypernatremia from lack of water intake. Plan: Agree with half-normal saline. Also receiving tube feeds. Continue with potassium replacement. Avoid nephrotoxins. Continue to monitor renal function and urine output. Wean FiO2.
--- NOTE | 2022-08-20 11:21 | CDI ---
Documentation Clarification Form Date: 08/20/2022 10:53:28 AM From: Rajwinder Loo RN CCDS Admit Date: 08/16/2022 11:52:00 PM Patient Name: Reji Preston Visit Number: [id number] Discharge Date: ATTENTION: The Clinical Documentation Specialists (CDI) and [facility] Coding Staff appreciate your assistance in clarifying documentation. Please respond to the clarification below the line at the bottom and electronically sign. The CDI & [facility] Coding staff will review the response and follow-up if needed. Please note: Queries are made part of the Legal Health Record. If you have any questions, please contact the author of this message via ITS. Dr. Heath Holly MD The documentation of His elevated troponin was thought to be secondary to respiratory failure Cardiology Note, 08/19. Please clarify if there is an additional diagnosis and/or clinical significance. Patient history/risk factors: 51-year-old male presented to the ED via EMS after being found face down in bed unresponsive. The patient was hypotensive and required bagging him into the ED with agonal respirations. Medical History: Alcoholic; Atrial Fibrillation and HTN. 08/17, H&P. Clinical indicators: 08/16, VS: B/P 97/80; HR 170; Temp 97.0F Oral; RR 18; SpO2 90% Non-rebreather 15L 08/16, VS: B/P 104/65; HR 100; SpO2 100% Mechanical Ventilator FiO2 100. 08/16, Blood Gas: Right Radial PH 7.13; PCO2 50; pO2 240; HCO3 17; Total CO2 18; O2 Saturation 98.8 BASE EXCESS -12.7; Clint test Yes; PH 7.12 PCO2 54 HCO3 17 FiO2 100% 08/16, Troponin: 0.304; 08/17: 0.248 08/16, EKG: Sinus Tachycardia, Possible right atrial enlargement, Moderate ST Depression. Treatment: 08/16 Non-Rebreather mask; 08/16 BiPAP; 08/16 Intubation on Mechanical Ventilator. Is there an additional diagnosis and/or clinical significance related to the above lab result/information? [ ] Type 2 MA due to Respiratory Failure [ ] Other, please specify [ ] Unable to determine pt did not have MA (Template Last Reviewed: May 2021) MTDD
[2022-08-20 11:32] LABS: Glucose,Whole Blood 93 mg/dL (70-110)
--- NOTE | 2022-08-20 11:32 | P.PN ---
Subjective Progress Note Date: 08/20/22 Hospital Course: 57-year-old male with history of alcohol dependence/abuse, atrial fibrillation presented with altered mentation and possible code stroke. On arrival, patient was hemodynamically unstable, in A. fib with RVR, patient was intubated and cardioverted to normal sinus rhythm. CT had showed no acute process, interventional neurology [employer] did not recommend to give alteplase. Re portedly, patient has been binge drinking, his last drink was on August 11. Per family patient was vomiting prior to becoming unresponsive. His initial labs were consistent with severe dehydration, pH of 7.13, potassium 2.7, creatinine of 3.66, lactic acid of 12.4, mild transaminitis, mild elevated troponin, urine tox positive for benzos and marijuana. Currently patient remains intubated, not requiring any pressors, currently on sedation, renal function improving with IV fluids. There is also concern for possible GI bleed, patient on IV Protonix, surgery following a hemoglobin stable. Nephrology and ICU also following. Subjective: Patient seen and examined at bedside. No acute events overnight. Currently he remains intubated and sedated. Per nursing, his urine output slowly down trending. The amount of diarrhea has decreased. Pertinent positives and negatives as discussed above, a complete review of systems was performed and all other systems are negative. Vitals Signs Reviewed. Vital signs reviewed General: Intubated and sedated Derm: warm, dry Head: atraumatic, normocephalic, symmetric Eyes: Pupils pinpoint equal and reactive Mouth: no lip lesion, mucus membranes moist Cardiovascular: S1S2 reg, no murmur, positive posterior tibial pulse bilateral, Lungs: Clear to auscultation bilaterally, mechanical ventilation Abdominal: soft, nondistended, no rigidity, no appreciable organomegaly, NG tube in place , rectal tube Ext: no gross muscle atrophy, no edema, no contractures Neuro: Sedated Psych: Unable to assess Assessment/Plan: Acute hypoxic and hypercapnic respiratory failure status post intubation -Continue to wean sedation -Remains on minimal vent settings -Can consider spontaneous breathing trial, extubation Acute metabolic encephalopathy Hyperammonemia History of alcohol abuse -Continue to wean sedation -Neurology following -EEG report: Amplitude asymmetry likely from previous craniotomy defect, moderate to severe slowing concerning for toxic metabolic encephalopathy, no definitive epileptiform activity seen -IV thiamine Shock, likely hypovolemic - resolved High anion gap metabolic acidosis secondary to Severe lactic acidosis - resolved Acute kidney injury - resolved Severe hyperphosphatemia - resolved Severe hypokalemia - resolving Hypomagnesemia -Continue IV fluids -Monitor urine output and renal function, renal ultrasound showed no hydronephrosis -Replete electrolytes per protocol, continue to monitor -Renal following A. fib with RVR status post cardioversion Elevated troponin -Cardiology following Possible upper GI bleed Thrombocytopenia -IV PPI twice a day -Low platelets likely in the setting of chronic alcohol abuse -Gen. surgery following Staph bacteremia -First set of blood cultures positive for staph aureus and epidermidis, likely contaminant. however, sputum culture also showing staph -Patient currently on vancomycin, repeat blood cultures no growth to date DVT ppx: Lovenox Code status: Full code Anticipated discharge place: Pending clinical course Anticipated discharge time: Pending clinical course Objective - Vital Signs Vital signs: Vital Signs Temp 97.8 F 08/20/22 08:00 Pulse 57 L 08/20/22 09:00 Resp 18 08/20/22 09:00 BP 94/53 08/20/22 09:00 Pulse Ox 100 08/20/22 09:00 FiO2 40 08/20/22 08:10 Intake & Output 08/19/22 08/20/22 08/20/22 18:59 06:59 18:59 Intake Total 2445.613 2842.050 862.876 Output Total 1340 510 53 Balance 9204.656 7358.050 809.876 Weight 80 kg 86.1 kg Intake: IV 1650 1700 650 Sodium Chloride 0.9% 1, 1100 1200 100 000 ml @ 100 mls/hr IV . Q10H [facility] Rx#:[id number] Thiamine 100 mg In Sodium 50 50 Chloride 0.9% 50 ml @ 100 mls/hr IVPB Q24HR [facility] Rx#:[id number] Vancomycin 1,500 mg In 500 500 500 Sodium Chloride 0.9% 500 ml 500 ml @ 167 mls/hr IVPB Q12H [facility] Rx#: [id number] Intake, IV Titration 625.613 772.050 102.876 Amount Midazolam HCl 200 mg In 67.625 96.292 Sodium Chloride 0.9% 60 ml @ 14 MG/HR 7 mls/hr IV .[id number] [facility] Rx#: [id number] Norepinephrine 4 mg In 91.508 179.183 Sodium Chloride 0.9% 250 ml @ 0.03 MCG/KG/MIN 9. 332 mls/hr IV .Q24H [facility] Rx#:[id number] fentaNYL (PF) 2,500 mcg 466.480 496.575 102.876 In Sodium Chloride 0.9% 200 ml @ 4 MCG/KG/HR 32. 659 mls/hr IV .Q7H40M [facility] Rx#:[id number] Tube Feeding 110 280 80 Other 60 90 30 Output: Urine 440 510 53 Stool 900 Other: Voiding Method Indwelling Catheter Indwelling Catheter Indwelling Catheter - Labs CBC & Chem 7: 08/20/22 07:10 08/20/22 07:10 Labs: Abnormal Lab Results - Last 24 Hours (Table) 08/20/22 08/20/22 08/20/22 Range/Units 05:08 07:10 07:10 RBC 3.72 L (4.30-5.90) m/uL Hgb 11.8 L D (13.0-17.5) gm/dL Hct 36.0 L (39.0-53.0) % Plt Count 61 L (150-450) k/uL ABG pCO2 51 H (35-45) mmHg ABG HCO3 32 H (21-25) mmol/L ABG Total CO2 34 H (19-24) mmol/L ABG O2 Saturation 98.4 H (94-97) % Potassium 2.9 L (3.5-5.1) mmol/L Chloride 111 H (98-107) mmol/L Carbon Dioxide 32 H (22-30) mmol/L Calcium 7.5 L (8.4-10.2) mg/dL Microbiology - Last 24 Hours (Table) 08/18/22 08:29 Blood Culture - Preliminary Blood No Growth after 48 hours 08/16/22 20:37 Blood Culture Gram Stain - Preliminary Blood Blood Culture - Preliminary Staphylococcus aureus Staphylococcus epidermidis Coagulase Negative Staph 08/17/22 00:38 Gram Stain - Final Sputum Sputum Culture - Final Staphylococcus aureus
--- NOTE | 2022-08-20 11:34 | P.PN ---
Subjective Progress Note Date: 08/20/22 Principal diagnosis: Acute hypoxic and hypercapnic respiratory failure 57-year-old male patient with known history of alcoholism and known history of chronic into fibrillation. The patient arrived to the emergency department yesterday for altered mentation suspecting a possible stroke. EMS stated that the patient was at home, and he was in his normal self at around 7:30 PM. Subsequently at around 8 PM, he was found face down in bed unresponsive. In the emergency, the patient was found to be hypotensive. EMS was supporting his breathing by bagging and the patient was having agonal breathing. It was reported to us that the patient is an alcoholic and he was binge drinking. There is also history of emesis and apparently the patient was having significant amount of emesis and ultimately collapsed and he was unable to stand up anymore. In the emergency, the patient was found to have a heart rate of 220. Initial blood pressure was 50/30. He was having agonal breathing. He was not following any commands. Code stroke was activated. Patient was unable to protect his airway. At that point, he was intubated and he was given a 7 ET tube. He was given a total of 3 L of fluid normal saline bolus. CAT scan of the brain was done in addition to a CT angiogram of the head and the neck. The CAT scans were negative. Case was discussed with intervention neurology and no further treatment was done. Initial blood work showed a lactic acid level of 12.4. The patient also will was found to have a potassium level of 2.7. He was in acute kidney injury with a BUN of 52 and a creatinine of 3.6. Sodium level was at 141. Troponins were positive at levels of 0.3 and 0.2 respectively. AST was 191. He was 84 bilirubin was 3.7 calcium was 7.8. His white cell count was 17.2 with a hemoglobin 18.7. INR was 1.4 with a PT of 17.8 and a PTT of 23. Urine drug screen was positive for benzodiazepines and marijuana. Alcohol level was negative. UA was positive for protein, 10 WBCs, 8 RBCs. The chest x-ray was essentially clear. Posterior intubation chest x-ray showed adequate positioning of 82. Vision also has a G-tube in place. No evidence of any pneu mothorax. Subsequent lactic acid level dropped down to 5.3. At this point in time, the patient is intubated on a mechanical ventilator. He is on a Versed drip running at 11 mg/m and fentanyl drip running at 2 Todd respiratory kilogram per hour. His assist-control mode of mechanical ventilation at the rate of 18 with a tidal volume of 400 FiO2 of 50% with a PEEP of 5. Most recent blood gas showed a pH of 7.31 with a pCO2 of 43 and pO2 of 203. IV fluids are currently in the form of normal saline at rate of 1 50 mL an hour. Urine output is adequate and the patient is producing white daryl urine. Repeat electrodes from today are still pending. He was placed on IV heparin. He is on no pressors for now. Note that the patient also had a CAT scan of the chest abdomen and pelvis in the emergency department that showed no significant abnormalities. On today's evaluation of 08/18/2022, the patient is still intubated on a mechanical ventilator. He is very much dependent on sedation as the patient is quite agitated once off sedation. This morning, he is on a combination of Versed at 40 mg an hour and is also on fentanyl and at 4 mcg/kg/h. I was told by the nursing staff that he gets quite agitated when the sedation runs of and this has been noted by the nursing staff. Note that no purposeful activity or following commands and his mentation is not appropriate at this point in time. There may be a component of delirium tremens of this patient. He is a long-time alcoholic. In [facility], another sedation holiday will be given today and his mental status will be reassessed during the day. Meanwhile, this morning, he is on assist-control mode at a rate of 18 with a tidal volume of 400 and FiO2 was at 45% with a PEEP of 5. His chest x-ray showed no acute abnormalities and EKG was in a good location. No significant orotracheal secretions. The blood gas is showing a component of alkalosis as the patient was being given bicarb infusion. His patient's pH is at 7.47 with a pCO2 of 54 and pO2 of 90. On his blood work, the renal function has improved. The patient's creatinine is down to 1.23 with a BUN of 44. Sodium is at 143 and potassium is at 3.70 severity replaced. Serum bicarb is up to 32. WBC was at 14.3 and hematocrit is 49 with a platelet count that is pending for now. Note that her amylase and lipase was slightly elevated and there may be a component of pancreatitis along with alcoholic hepatitis. Blood culture was positive for staph aureus and staph epidermidis. I'm not sure if this is a true infection versus a contaminant. This was only in 1 out of 2 bottles. Another set of blood cultures will be obtained. Noted the patient was given a dose of vancomycin pending further cultures. He is on Lovenox portably prophylaxis. He remains nothing by mouth. No pressors for now. Renal ultrasound was completed yesterday and it showed no evidence of any hydronephrosis. Reevaluated today on 08/19/2022, patient remains in the ICU, intubated and mechanically ventilated. Patient is on assist control rate of 18 tidal volume 400 FiO2 40% and PEEP of 5 ABG showed a pO2 of 84 pCO2 48 pH of 7.47. Patient remains on fentanyl at 4 mcg/kg/h, norepinephrine at 0.01 mcg/kg/m, Versed at 15 mg per hour and he is on IV fluid at the cc per hour in the form of 0.9 normal saline. Patient is receiving vital HPI at 10 mL per hour. Continues to have extreme agitations in spite of sedation, patient is arousable, and gets agitated very easily. Chest x-ray not done today, but chest x-ray from yesterday showed no evidence of infiltrate. Seen by neurology today, felt to have toxic metabolic encephalopathy and alcohol withdrawal. Considering the patient's agitation, he is obviously not a candidate for weaning and extubation at this point. Basic metabolic profile is normal, renal profile is normal. Brain CT on admission showed no intracranial abnormality Reevaluated today on 08/20/22, patient remains in the ICU, intubated and mechanically ventilated. Patient is on assist control rate of 18, tidal volume 400 FiO2 40% and PEEP of 5. ABG showed a pO2 of 100 pCO2 51 pH of 7.41. EEG showed mostly metabolic encephalopathy, no seizure activity. Patient remains on significant amount of sedation including fentanyl and 4 mcg/kg/h, and I cut it down to 2 mcg/kg per hour. Remains on Versed at 20 mg per hour. Normal saline which I have changed to D5 45 at 100 mL per hour. He is on tube feeding at 40 mL per hour. Patient remains on GI and DVT prophylaxis, he is not requiring any pressors. Today I plan to hold or at least cut down on the sedation, assess mental status, and possibly give the patient a trial of weaning if possible. However considering the patient gets extremely agitated, that may not happen today. His potassium is low, and is being corrected as per protocol. WBC count is 5.8 hemoglobin is 11.8. Renal profile is normal potassium is being corrected it is 2.90. Patient's Gram stain of the sputum and culture came back positive for staph aureus. The staph aureus is MSSA. Chest x-ray remains relatively cl ear, minimal perihilar atelectasis, no clear-cut evidence of pneumonia. Objective - Vital Signs Vital signs: Vital Signs Temp 97.8 F 08/20/22 08:00 Pulse 57 L 08/20/22 09:00 Resp 18 08/20/22 09:00 BP 94/53 08/20/22 09:00 Pulse Ox 100 08/20/22 09:00 FiO2 40 08/20/22 08:10 Intake & Output 08/19/22 08/20/22 08/20/22 18:59 06:59 18:59 Intake Total 2445.613 2842.050 862.876 Output Total 1340 510 53 Balance 8353.677 3755.050 809.876 Weight 80 kg 86.1 kg Intake: IV 1650 1700 650 Sodium Chloride 0.9% 1, 1100 1200 100 000 ml @ 100 mls/hr IV . Q10H [facility] Rx#:[id number] Thiamine 100 mg In Sodium 50 50 Chloride 0.9% 50 ml @ 100 mls/hr IVPB Q24HR [facility] Rx#:[id number] Vancomycin 1,500 mg In 500 500 500 Sodium Chloride 0.9% 500 ml 500 ml @ 167 mls/hr IVPB Q12H [facility] Rx#: [id number] Intake, IV Titration 625.613 772.050 102.876 Amount Midazolam HCl 200 mg In 67.625 96.292 Sodium Chloride 0.9% 60 ml @ 14 MG/HR 7 mls/hr IV .[id number] [facility] Rx#: [id number] Norepinephrine 4 mg In 91.508 179.183 Sodium Chloride 0.9% 250 ml @ 0.03 MCG/KG/MIN 9. 332 mls/hr IV .Q24H [facility] Rx#:[id number] fentaNYL (PF) 2,500 mcg 466.480 496.575 102.876 In Sodium Chloride 0.9% 200 ml @ 4 MCG/KG/HR 32. 659 mls/hr IV .Q7H40M [facility] Rx#:[id number] Tube Feeding 110 280 80 Other 60 90 30 Output: Urine 440 510 53 Stool 900 Other: Voiding Method Indwelling Catheter Indwelling Catheter Indwelling Catheter - Exam Physical Exam: Revealed 57-year-old white male intubated, mechanically ventilated, remains on relatively high dose of fentanyl and Versed Head: Atraumatic, normocephalic. Endotracheal tube and orogastric tube are intact. HEENT:[Neck is supple.] [No neck masses.] [No thyromegaly.] [No JVD.] Chest: [Clear throughout, no crackles, no rhonchi, no wheezes.] Cardiac Exam: [Normal S1 and S2, no S3 gallop, no murmur.] Abdomen: [Soft, nontender, no megaly, no rebound, no guarding, normal bowel sounds.] Extremities: [No clubbing, no edema, no cyanosis.] Neurological Exam: Arousable in spite of being on fentanyl and Versed, patient f ollows very simple instructions Psychiatric : Could not assess. . Musculoskeletal: No deformities. Skin: No rashes - Labs CBC & Chem 7: 08/20/22 07:10 08/20/22 07:10 Labs: Abnormal Lab Results - Last 24 Hours (Table) 08/20/22 08/20/22 08/20/22 Range/Units 05:08 07:10 07:10 RBC 3.72 L (4.30-5.90) m/uL Hgb 11.8 L D (13.0-17.5) gm/dL Hct 36.0 L (39.0-53.0) % Plt Count 61 L (150-450) k/uL ABG pCO2 51 H (35-45) mmHg ABG HCO3 32 H (21-25) mmol/L ABG Total CO2 34 H (19-24) mmol/L ABG O2 Saturation 98.4 H (94-97) % Potassium 2.9 L (3.5-5.1) mmol/L Chloride 111 H (98-107) mmol/L Carbon Dioxide 32 H (22-30) mmol/L Calcium 7.5 L (8.4-10.2) mg/dL Microbiology - Last 24 Hours (Table) 08/18/22 08:29 Blood Culture - Preliminary Blood No Growth after 48 hours 08/16/22 20:37 Blood Culture Gram Stain - Preliminary Blood Blood Culture - Preliminary Staphylococcus aureus Staphylococcus epidermidis Coagulase Negative Staph 08/17/22 00:38 Gram Stain - Final Sputum Sputum Culture - Final Staphylococcus aureus Assessment and Plan Assessment: Impression: Acute hypoxic and hypercapnic respiratory failure, mostly because the patient was unable to protect his airways upon his initial presentation, patient required intubation for airways protection. And he was encephalopathic with mental status change upon his initial presentation. MSSA tracheobronchitis, no clear-cut evidence of pneumonia noted on the chest x- ray. Altered mental status, possibly metabolic encephalopathy, suspect alcohol withdrawal. Severe lactic acidosis on admission, with hypovolemia, resolved. Hypovolemic with hypotension Anion gap metabolic acidosis, resolved. Positive blood cultures for staph epidermidis, felt to be a contamination. History of alcoholism Acute kidney injury with hypovolemia, resolved. History of paroxysmal atrial fibrillation Benign essential hypertension Acute toxic metabolic encephalopathy Dyslipidemia Recommendation: Continue ventilatory support, may consider a trial of weaning give the patient couldn't tolerate coming off Versed and fentanyl today. Continue GI and DVT prophylaxis patient is on Lovenox and on Protonix. Continue sedation Continue nutritional support. Continue IV thiamine. Continue to monitor daily labs and address accordingly Neurology is following on consultation, and I have reviewed the results of the EEG. Basically nondiagnostic. Showed metabolic encephalopathy Patient remains critical, prognosis is relatively guarded. Critical care time is over 30 minutes. We'll continue to follow Time with Patient: Greater than 30
[2022-08-20] MEDS ORDERED: POTASSIUM BICARBONATE/CIT AC 20 MEQ TABLET.EFF PO ONE (12:00)
[2022-08-20 13:47] LABS: T4, Free (Free Thyroxine) 1.37 ng/dL (0.78-2.19)
--- NOTE | 2022-08-20 15:45 | P.PN ---
Subjective Progress Note Date: 08/20/22 CHIEF COMPLAINT: Upper GI bleed HISTORY OF PRESENT ILLNESS: Patient remains in the ICU on mechanical vent ilation. Patient has been having diarrhea had FMS placed. Stool is brown. C. diff is negative. NG tube currently has had no further blood noted. Patient is currently on tube feeds. Afebrile. WBC 5.8 Hgb 11.8 platelets 61 sodium 145 potassium 2.9 creatinine 0.68 PHYSICAL EXAM: VITAL SIGNS: Reviewed. GENERAL: Well-developed in no acute distress. HEENT: No sclera icterus. Extraocular movements grossly intact. Moist buccal mucosa. Head is atraumatic, normocephalic. ABDOMEN: Soft. Nondistended. NEUROLOGIC: Intubated and sedated ASSESSMENT: 1. Acute GI bleed. No longer having bleeding through NG tube. Stools are brown. PLAN: -Continue ICU management -Continue PPI -Continue monitor hemoglobin -Patient has had no further bleeding. Surgical service will sign off. Please call with any questions or concerns. Physician Medicine And Health Service Manager note has been reviewed by physician. Signing provider agrees with the documented findings, assessment, and plan of care. I have personally seen and examined the patient, reviewed the [facility]IST /PAs history, exam and MDM and agree with the assessment and plan as written. Based on total visit time, I have performed more than 50% of the visit. As above: Patient stable on the ventilator. No further bleeding. We'll sign off. Please call if needed. Objective - Vital Signs Vital signs: Vital Signs Temp 97.5 F L 08/20/22 12:00 Pulse 85 08/20/22 15:15 Resp 20 08/20/22 15:15 BP 135/81 08/20/22 15:15 Pulse Ox 92 L 08/20/22 15:15 FiO2 40 08/20/22 15:19 Intake & Output 08/19/22 08/20/22 08/20/22 18:59 06:59 18:59 Intake Total 2445.613 2842.050 2071.376 Output Total 1340 510 303 Balance 1455.781 2714.050 1768.376 Weight 80 kg 86.1 kg Intake: IV 1650 1700 1450 Dextrose 5%-0.45% NaCl 1, 600 000 ml @ 100 mls/hr IV . Q10H [facility] Rx#:[id number] Magnesium Sulfate-D5w Pmx 200 1 gm In Dextrose/Water 1 100ml.bag @ 100 mls/hr IVPB Q1H [facility] Rx#: [id number] Sodium Chloride 0.9% 1, 1100 1200 100 000 ml @ 100 mls/hr IV . Q10H [facility] Rx#:[id number] Thiamine 100 mg In Sodium 50 50 Chloride 0.9% 50 ml @ 100 mls/hr IVPB Q24HR [facility] Rx#:[id number] Vancomycin 1,500 mg In 500 500 500 Sodium Chloride 0.9% 500 ml 500 ml @ 167 mls/hr IVPB Q12H [facility] Rx#: [id number] Intake, IV Titration 625.613 772.050 201.376 Amount Midazolam HCl 200 mg In 67.625 96.292 98.50 Sodium Chloride 0.9% 60 ml @ 14 MG/HR 7 mls/hr IV .[id number] [facility] Rx#: [id number] Norepinephrine 4 mg In 91.508 179.183 Sodium Chloride 0.9% 250 ml @ 0.03 MCG/KG/MIN 9. 332 mls/hr IV .Q24H [facility] Rx#:[id number] fentaNYL (PF) 2,500 mcg 466.480 496.575 102.876 In Sodium Chloride 0.9% 200 ml @ 4 MCG/KG/HR 32. 659 mls/hr IV .Q7H40M COUNTS INCLUDE 234 BEDS AT THE [facility] Rx#:[id number] Tube Feeding 110 280 330 Other 60 90 90 Output: Urine 440 510 303 Stool 900 Other: Voiding Method Indwelling Catheter Indwelling Catheter Indwelling Catheter ABP, PAP, CO, CI - Last Documented Arterial Blood Pressure 74/34 - Labs CBC & Chem 7: 08/20/22 07:10 08/20/22 16:11 Labs: Abnormal Lab Results - Last 24 Hours (Table) 08/20/22 08/20/22 08/20/22 Range/Units 05:08 07:10 07:10 RBC 3.72 L (4.30-5.90) m/uL Hgb 11.8 L D (13.0-17.5) gm/dL Hct 36.0 L (39.0-53.0) % Plt Count 61 L (150-450) k/uL ABG pCO2 51 H (35-45) mmHg ABG HCO3 32 H (21-25) mmol/L ABG Total CO2 34 H (19-24) mmol/L ABG O2 Saturation 98.4 H (94-97) % Potassium 2.9 L (3.5-5.1) mmol/L Chloride 111 H (98-107) mmol/L Carbon Dioxide 32 H (22-30) mmol/L Calcium 7.5 L (8.4-10.2) mg/dL TSH (0.465-4.680) mIU/L 08/20/22 Range/Units 07:10 RBC (4.30-5.90) m/uL Hgb (13.0-17.5) gm/dL Hct (39.0-53.0) % Plt Count (150-450) k/uL ABG pCO2 (35-45) mmHg ABG HCO3 (21-25) mmol/L ABG Total CO2 (19-24) mmol/L ABG O2 Saturation (94-97) % Potassium (3.5-5.1) mmol/L Chloride (98-107) mmol/L Carbon Dioxide (22-30) mmol/L Calcium (8.4-10.2) mg/dL TSH 0.220 L (0.465-4.680) mIU/L Microbiology - Last 24 Hours (Table) 08/16/22 20:37 Blood Culture Gram Stain - Preliminary Blood Blood Culture - Preliminary Staphylococcus aureus Staphylococcus epidermidis Coagulase Negative Staph 08/18/22 08:29 Blood Culture - Preliminary Blood No Growth after 48 hours 08/17/22 00:38 Gram Stain - Final Sputum Sputum Culture - Final Staphylococcus aureus
[2022-08-20] MEDS ORDERED: CISATRACURIUM 2 MG/ML 5 ML VIAL IV PRN (17:20)
[2022-08-20 17:58] LABS: Glucose,Whole Blood 102 mg/dL (70-110)
[2022-08-20] MEDS ORDERED: POTASSIUM BICARBONATE/CIT AC 20 MEQ TABLET.EFF NG-TUBE SCH (18:00)
[2022-08-20] MEDS ORDERED: POTASSIUM CHLORIDE ER 20 MEQ TAB.ER PO SCH (18:00)
--- NOTE | 2022-08-20 19:54 | PN ---
PROGRESS NOTE SUBJECTIVE: Reji is a 57-year-old gentleman with respiratory failure, who is currently intubated and on vent, has been having problems with hypotension. He remains in sinus rhythm. OBJECTIVE: VITAL SIGNS: Heart rate is 57 beats per minute, blood pressure is 94/50, and respiratory rate is 18. CHEST: Reveals diminished air entry with occasional rhonchi. HEART: Reveals first and second heart sounds. No gallop. ABDOMEN: Soft. EXTREMITIES: Did not reveal any edema. LABORATORY DATA: Show a hemoglobin of 11.8, platelet count is 61, potassium is 2.9, creatinine is 0.68. ASSESSMENT: 1. Respiratory failure. 2. Paroxysmal atrial fibrillation. 3. Hypotension. PLAN: Continue current supportive measures. MMODL / IJN: [id number] /
[2022-08-20] MEDS: CISATRACURIUM 200 MG in SODIUM CHLORIDE 0.9% 180 ML IV SCH (19:58)
--- NOTE | 2022-08-20 19:59 | PN ---
PROGRESS NOTE SUBJECTIVE: Reji is a 57-year-old gentleman with respiratory failure, paroxysmal atrial fibrillation that we are following for paroxysmal atrial fibrillation. Remains in sinus rhythm. Has had issues with hypotension and is currently requiring Levophed from time to time. OBJECTIVE: GENERAL: Intubated, vented, sedated, stable hemodynamically. CHEST: Reveals good air entry bilaterally. HEART: Reveals first and second heart sounds. No gallop. EXTREMITIES: Did not reveal any edema. Peripheral pulses are felt. ASSESSMENT: 1. Vent requiring respiratory failure. 2. Paroxysmal atrial fibrillation. PLAN: The patient will continue current supportive measures. Prognosis guarded. MMODL / IJN: [id number] /
[2022-08-20] MEDS: ARTIFICIAL TEARS-HYPROMELLOSE DROPS 15 ML BTL BOTH EYES SCH (20:41)
[2022-08-21] LABS: Glucose,Whole Blood 93 mg/dL (70-110)
[2022-08-21] MEDS: ARTIFICIAL TEARS-HYPROMELLOSE DROPS 15 ML BTL BOTH EYES SCH ×6 (00:38→21:03)
[2022-08-21] MEDS: NOREPINEPHRINE 4 MG in SODIUM CHLORIDE 0.9% 250 ML IV SCH (02:07)
[2022-08-21] MEDS: DEXTROSE 5%-0.45% NACL 1,000 ML IV SCH ×2 (04:22→16:23)
[2022-08-21 05:31] LABS: Glucose,Whole Blood 108 mg/dL (70-110)
[2022-08-21 05:32] LABS: ABG Base Excess 8.7 mmol/L; ABG HCO3 33 mmol/L (21-25); ABG Oxygen Saturation 98.9 % (94-97); ABG PCO2 48 mmHg (35-45); ABG PH 7.44 (7.35-7.45); ABG PO2 106 mmHg (83-108); ABG TCO2 34 mmol/L (19-24); Allen Test Performed? Yes
[2022-08-21] MEDS ORDERED: VANCOMYCIN TROUGH DUE 1 EACH MISC MISCELLANE ONE (07:00)
--- NOTE | 2022-08-21 07:08 | XR ---
EXAMINATION TYPE: XR chest 1V portable DATE OF EXAM: 08/21/2022 5:43 AM COMPARISON: Chest radiograph from one day prior. TECHNIQUE: XR chest 1V portable Portable AP radiograph of the chest. CLINICAL INDICATION:Male, 57 years old with history of Tube placement; FINDINGS: Lungs/Pleura: There is no evidence of pleural effusion, focal consolidation, or pneumothorax. Eventra tion of the left diaphragm. Pulmonary vascularity: Unremarkable. Heart/mediastinum: Cardiomediastinal silhouette is unremarkable. Musculoskeletal: No acute osseous pathology. There is fixation hardware in the lower cervical spine. Lines/Tubes: Endotracheal tube with distal tip 8.0 cm above the dany. Nasogastric tube with its distal tip and side-port projecting under the diaphragm. IMPRESSION: 1. Stable support tubes, 2. No change from one day prior, No acute cardiopulmonary disease/process.
[2022-08-21] MEDS: fentaNYL (PF) 2,500 MCG in SODIUM CHLORIDE 0.9% 200 ML IV SCH (07:41)
[2022-08-21] MEDS: MIDAZOLAM HCL 200 MG in SODIUM CHLORIDE 0.9% 60 ML IV SCH ×2 (07:42→21:20)
[2022-08-21 07:49] LABS: HCT 33.8 % (39.0-53.0); HGB 10.9 gm/dL (13.0-17.5); MCHC 32.1 g/dL (31.0-37.0); MCV 96.4 fL (80.0-100.0); Mean Platelet Volume 10.5; RBC 3.51 m/uL (4.30-5.90); RDW 13.8 % (11.5-15.5); WBC 5.9 k/uL (3.8-10.6)
[2022-08-21 08:01] LABS: Platelet Count 74 k/uL (150-450)
[2022-08-21 08:06] LABS: African American GFR (CKD) >90 (>60 ml/min/1.73 sqM); Anion Gap 1 mmol/L; Blood Urea Nitrogen 7 mg/dL (9-20); Calcium 7.3 mg/dL (8.4-10.2); Carbon Dioxide 30 mmol/L (22-30); Chloride 111 mmol/L (98-107); Glucose 196 mg/dL (74-99); Magnesium 1.9 mg/dL (1.6-2.3); Non-African American GFR(CKD) >90 (>60 ml/min/1.73 sqM); Sodium 142 mmol/L (137-145)
[2022-08-21] MEDS: VANCOMYCIN 1,500 MG in SODIUM CHLORIDE 0.9% 500 ML 500 ML IVPB SCH ×2 (08:11→20:42)
[2022-08-21] MEDS: THIAMINE 100 MG in SODIUM CHLORIDE 0.9% 50 ML IVPB SCH (08:11)
[2022-08-21] MEDS: ENOXAPARIN 40 MG/0.4 ML SYRINGE SQ SCH (08:11)
[2022-08-21] MEDS: CHLORHEXIDINE GLUCONATE 15 ML CUP MUCOUS MEM SCH ×2 (08:11→21:04)
[2022-08-21] MEDS: POTASSIUM CHLORIDE 10 MEQ in WATER FOR INJECTION 1 100ML.BAG IVPB SCH ×4 (08:58→16:22)
[2022-08-21] MEDS: MAGNESIUM SULFATE-D5W PMX 1 GM in DEXTROSE/WATER 1 100ML.BAG IVPB SCH ×2 (08:58→11:22)
[2022-08-21 09:17] LABS: Eosinophils # (M) 0.35 k/uL (0-0.7); Lymphocytes # (M) 1.06 k/uL (1.0-4.8); Monocytes # (M) 0.53 k/uL (0-1.0); Neutrophils # (M) 3.95 k/uL (1.3-7.7); Neutrophils % (M) 67 %; Nucleated Red Blood Cells 0 /100 WBC (0-0); Total Cells Counted 100
[2022-08-21 09:19] LABS: RBC Morphology Normal
[2022-08-21] MEDS: METOPROLOL TARTRATE 25 MG TAB PO SCH (09:20)
[2022-08-21] MEDS: PANTOPRAZOLE 40 MG/10 ML VIAL IVP SCH ×2 (09:21→21:03)
[2022-08-21] MEDS ORDERED: CISATRACURIUM 2 MG/ML 5 ML VIAL IV ONE (10:47)
[2022-08-21] MEDS: QUEtiapine 50 MG TAB PO SCH (10:52)
[2022-08-21] MEDS: CISATRACURIUM 200 MG in SODIUM CHLORIDE 0.9% 180 ML IV SCH (11:00)
--- NOTE | 2022-08-21 11:55 | P.PN ---
Subjective Progress Note Date: 08/20/22 Patient was seen for a follow-up. Patient's 2 daughters were present today. Patient currently on fentanyl 4 mcg/h and Versed 20 mg per hour drip. Patient's daughters mention that patient has been a very heavy drinker all their lives that very know their father. They believe patient's last drink was on 08/11/2022, whereas he was hospitalized on 08/16/2022. Patient's daughters states that he was drunk and he fell down stairs suffering from a brain bleed in 2015 oh 2017. He was admitted to [facility] that he underwent craniotomy 2, on the left side. He was hospitalized in the ICU for a month. Per nurse report, when the sedation is decreased, he shakes his head yes/no. He moves all 4 extremities. He follows, wants. Because of agitation, he was again sedated. He is not able to be extubated. Objective - Vital Signs Vital signs: Vital Signs Temp 97.5 F L 08/20/22 16:00 Pulse 102 H 08/20/22 17:00 Resp 15 08/20/22 17:00 BP 144/87 08/20/22 17:00 Pulse Ox 97 08/20/22 17:00 FiO2 40 08/20/22 16:00 Intake & Output 08/19/22 08/20/22 08/20/22 18:59 06:59 18:59 Intake Total 2445.613 2842.050 2196.837 Output Total 1340 510 303 Balance 4014.441 0931.050 1893.837 Weight 80 kg 86.1 kg Intake: IV 1650 1700 1450 Dextrose 5%-0.45% NaCl 1, 600 000 ml @ 100 mls/hr IV . Q10H [facility] Rx#:[id number] Magnesium Sulfate-D5w Pmx 200 1 gm In Dextrose/Water 1 100ml.bag @ 100 mls/hr IVPB Q1H [facility] Rx#: [id number] Sodium Chloride 0.9% 1, 1100 1200 100 000 ml @ 100 mls/hr IV . Q10H [facility] Rx#:[id number] Thiamine 100 mg In Sodium 50 50 Chloride 0.9% 50 ml @ 100 mls/hr IVPB Q24HR [facility] Rx#:[id number] Vancomycin 1,500 mg In 500 500 500 Sodium Chloride 0.9% 500 ml 500 ml @ 167 mls/hr IVPB Q12H [facility] Rx#: [id number] Intake, IV Titration 625.613 772.050 326.837 Amount Midazolam HCl 200 mg In 67.625 96.292 98.50 Sodium Chloride 0.9% 60 ml @ 14 MG/HR 7 mls/hr IV .[id number] [facility] Rx#: [id number] Norepinephrine 4 mg In 91.508 179.183 Sodium Chloride 0.9% 250 ml @ 0.03 MCG/KG/MIN 9. 332 mls/hr IV .Q24H [facility] Rx#:[id number] fentaNYL (PF) 2,500 mcg 466.480 496.575 228.337 In Sodium Chloride 0.9% 200 ml @ 4 MCG/KG/HR 32. 659 mls/hr IV .Q7H40M [facility] Rx#:[id number] Tube Feeding 110 280 330 Other 60 90 90 Output: Urine 440 510 303 Stool 900 Other: Voiding Method Indwelling Catheter Indwelling Catheter Indwelling Catheter ABP, PAP, CO, CI - Last Documented Arterial Blood Pressure 74/34 - Exam Exam limited because patient sedated heavily. - Labs CBC & Chem 7: 08/21/22 07:10 08/21/22 07:10 Labs: Abnormal Lab Results - Last 24 Hours (Table) 08/20/22 08/20/22 08/20/22 Range/Units 05:08 07:10 07:10 RBC 3.72 L (4.30-5.90) m/uL Hgb 11.8 L D (13.0-17.5) gm/dL Hct 36.0 L (39.0-53.0) % Plt Count 61 L (150-450) k/uL ABG pCO2 51 H (35-45) mmHg ABG HCO3 32 H (21-25) mmol/L ABG Total CO2 34 H (19-24) mmol/L ABG O2 Saturation 98.4 H (94-97) % Potassium 2.9 L (3.5-5.1) mmol/L Chloride 111 H (98-107) mmol/L Carbon Dioxide 32 H (22-30) mmol/L Calcium 7.5 L (8.4-10.2) mg/dL TSH (0.465-4.680) mIU/L 08/20/22 Range/Units 07:10 RBC (4.30-5.90) m/uL Hgb (13.0-17.5) gm/dL Hct (39.0-53.0) % Plt Count (150-450) k/uL ABG pCO2 (35-45) mmHg ABG HCO3 (21-25) mmol/L ABG Total CO2 (19-24) mmol/L ABG O2 Saturation (94-97) % Potassium (3.5-5.1) mmol/L Chloride (98-107) mmol/L Carbon Dioxide (22-30) mmol/L Calcium (8.4-10.2) mg/dL TSH 0.220 L (0.465-4.680) mIU/L Microbiology - Last 24 Hours (Table) 08/16/22 20:37 Blood Culture Gram Stain - Preliminary Blood Blood Culture - Preliminary Staphylococcus aureus Staphylococcus epidermidis Coagulase Negative Staph 08/18/22 08:29 Blood Culture - Preliminary Blood No Growth after 48 hours 08/17/22 00:38 Gram Stain - Final Sputum Sputum Culture - Final Staphylococcus aureus Assessment and Plan Assessment: * Altered mental status, likely due to toxic metabolic encephalopathy * Patient presented with unresponsiveness, likely due to above. * Alcohol withdrawal * Acute kidney injury, now resolved * Status post shock, likely hypovolemic * Atrial fibrillation with RVR, status post cardioversion * Acute respiratory failure, on mechanical ventilation * Elevated troponin * Gram-positive bacteremia, possibly contaminant. Plan: * Patient is showing meaningful response at this time. Patient is still on sedation with Versed and fentanyl. * CTA reported as negative of the brain. Mild plaque at the carotid artery bifurcation. No evidence of hemodynamic arterial stenosis in the neck. * EEG was abnormal due to amplitude asymmetry with relatively higher amplitude activity in the left frontoparietal region due to breach rhythm from previous craniotomy defect. Background slowing of moderate to severe degree, consistent with generalized cerebral dysfunction, as can be seen with toxic metabolic encephalopathy or due to diffuse structural brain abnormality. Clinical correlation is recommended. No epileptiform activity was seen. * B12 2102, folate 12.90, TSH slightly decreased 0.220, with normal free T4 1.37. * Continue present management. Per nurse report, when the sedation is decreased, patient moves all extremities and follows commands. Therefore we will hold off on any brain imaging at this time. We will continue to follow.
--- NOTE | 2022-08-21 12:25 | XR ---
EXAMINATION TYPE: XR chest 1V portable DATE OF EXAM: 08/21/2022 12:15 PM COMPARISON: Chest radiograph from one day prior. TECHNIQUE: XR chest 1V portable Portable AP radiograph of the chest. CLINICAL INDICATION:Male, 57 years old with history of line placement; FINDINGS: Lungs/Pleura: There is no evidence of pleural effusion, focal consolidation, or pneumothorax. Eventra tion of the left diaphragm. Pulmonary vascularity: Unremarkable. Heart/mediastinum: Cardiomediastinal silhouette is unremarkable. Musculoskeletal: No acute osseous pathology. There is fixation hardware in the lower cervical spine. Lines/Tubes: Endotracheal tube with distal tip 6.3 cm above the dany. Nasogastric tube with its distal tip and side-port projecting under the diaphragm. Right internal jugular central venous catheter with distal tip at the right atrium. IMPRESSION: 1. Right central venous catheter with tip projecting over the aortic right atrium 2. Stable support tubes,
--- NOTE | 2022-08-21 12:37 | P.PN ---
Subjective Progress Note Date: 08/21/22 Principal diagnosis: Acute hypoxic and hypercapnic respiratory failure 57-year-old male patient with known history of alcoholism and known history of chronic into fibrillation. The patient arrived to the emergency department yesterday for altered mentation suspecting a possible stroke. EMS stated that the patient was at home, and he was in his normal self at around 7:30 PM. Subsequently at around 8 PM, he was found face down in bed unresponsive. In the emergency, the patient was found to be hypotensive. EMS was supporting his breathing by bagging and the patient was having agonal breathing. It was reported to us that the patient is an alcoholic and he was binge drinking. There is also history of emesis and apparently the patient was having significant amount of emesis and ultimately collapsed and he was unable to stand up anymore. In the emergency, the patient was found to have a heart rate of 220. Initial blood pressure was 50/30. He was having agonal breathing. He was not following any commands. Code stroke was activated. Patient was unable to protect his airway. At that point, he was intubated and he was given a 7 ET tube. He was given a total of 3 L of fluid normal saline bolus. CAT scan of the brain was done in addition to a CT angiogram of the head and the neck. The CAT scans were negative. Case was discussed with intervention neurology and no further treatment was done. Initial blood work showed a lactic acid level of 12.4. The patient also will was found to have a potassium level of 2.7. He was in acute kidney injury with a BUN of 52 and a creatinine of 3.6. Sodium level was at 141. Troponins were positive at levels of 0.3 and 0.2 respectively. AST was 191. He was 84 bilirubin was 3.7 calcium was 7.8. His white cell count was 17.2 with a hemoglobin 18.7. INR was 1.4 with a PT of 17.8 and a PTT of 23. Urine drug screen was positive for benzodiazepines and marijuana. Alcohol level was negative. UA was positive for protein, 10 WBCs, 8 RBCs. The chest x-ray was essentially clear. Posterior intubation chest x-ray showed adequate positioning of 82. Vision also has a G-tube in place. No evidence of any pneu mothorax. Subsequent lactic acid level dropped down to 5.3. At this point in time, the patient is intubated on a mechanical ventilator. He is on a Versed drip running at 11 mg/m and fentanyl drip running at 2 Todd respiratory kilogram per hour. His assist-control mode of mechanical ventilation at the rate of 18 with a tidal volume of 400 FiO2 of 50% with a PEEP of 5. Most recent blood gas showed a pH of 7.31 with a pCO2 of 43 and pO2 of 203. IV fluids are currently in the form of normal saline at rate of 1 50 mL an hour. Urine output is adequate and the patient is producing white daryl urine. Repeat electrodes from today are still pending. He was placed on IV heparin. He is on no pressors for now. Note that the patient also had a CAT scan of the chest abdomen and pelvis in the emergency department that showed no significant abnormalities. On today's evaluation of 08/18/2022, the patient is still intubated on a mechanical ventilator. He is very much dependent on sedation as the patient is quite agitated once off sedation. This morning, he is on a combination of Versed at 40 mg an hour and is also on fentanyl and at 4 mcg/kg/h. I was told by the nursing staff that he gets quite agitated when the sedation runs of and this has been noted by the nursing staff. Note that no purposeful activity or following commands and his mentation is not appropriate at this point in time. There may be a component of delirium tremens of this patient. He is a long-time alcoholic. In [facility], another sedation holiday will be given today and his mental status will be reassessed during the day. Meanwhile, this morning, he is on assist-control mode at a rate of 18 with a tidal volume of 400 and FiO2 was at 45% with a PEEP of 5. His chest x-ray showed no acute abnormalities and EKG was in a good location. No significant orotracheal secretions. The blood gas is showing a component of alkalosis as the patient was being given bicarb infusion. His patient's pH is at 7.47 with a pCO2 of 54 and pO2 of 90. On his blood work, the renal function has improved. The patient's creatinine is down to 1.23 with a BUN of 44. Sodium is at 143 and potassium is at 3.70 severity replaced. Serum bicarb is up to 32. WBC was at 14.3 and hematocrit is 49 with a platelet count that is pending for now. Note that her amylase and lipase was slightly elevated and there may be a component of pancreatitis along with alcoholic hepatitis. Blood culture was positive for staph aureus and staph epidermidis. I'm not sure if this is a true infection versus a contaminant. This was only in 1 out of 2 bottles. Another set of blood cultures will be obtained. Noted the patient was given a dose of vancomycin pending further cultures. He is on Lovenox portably prophylaxis. He remains nothing by mouth. No pressors for now. Renal ultrasound was completed yesterday and it showed no evidence of any hydronephrosis. Reevaluated today on 08/19/2022, patient remains in the ICU, intubated and mechanically ventilated. Patient is on assist control rate of 18 tidal volume 400 FiO2 40% and PEEP of 5 ABG showed a pO2 of 84 pCO2 48 pH of 7.47. Patient remains on fentanyl at 4 mcg/kg/h, norepinephrine at 0.01 mcg/kg/m, Versed at 15 mg per hour and he is on IV fluid at the cc per hour in the form of 0.9 normal saline. Patient is receiving vital HPI at 10 mL per hour. Continues to have extreme agitations in spite of sedation, patient is arousable, and gets agitated very easily. Chest x-ray not done today, but chest x-ray from yesterday showed no evidence of infiltrate. Seen by neurology today, felt to have toxic metabolic encephalopathy and alcohol withdrawal. Considering the patient's agitation, he is obviously not a candidate for weaning and extubation at this point. Basic metabolic profile is normal, renal profile is normal. Brain CT on admission showed no intracranial abnormality Reevaluated today on 08/20/22, patient remains in the ICU, intubated and mechanically ventilated. Patient is on assist control rate of 18, tidal volume 400 FiO2 40% and PEEP of 5. ABG showed a pO2 of 100 pCO2 51 pH of 7.41. EEG showed mostly metabolic encephalopathy, no seizure activity. Patient remains on significant amount of sedation including fentanyl and 4 mcg/kg/h, and I cut it down to 2 mcg/kg per hour. Remains on Versed at 20 mg per hour. Normal saline which I have changed to D5 45 at 100 mL per hour. He is on tube feeding at 40 mL per hour. Patient remains on GI and DVT prophylaxis, he is not requiring any pressors. Today I plan to hold or at least cut down on the sedation, assess mental status, and possibly give the patient a trial of weaning if possible. However considering the patient gets extremely agitated, that may not happen today. His potassium is low, and is being corrected as per protocol. WBC count is 5.8 hemoglobin is 11.8. Renal profile is normal potassium is being corrected it is 2.90. Patient's Gram stain of the sputum and culture came back positive for staph aureus. The staph aureus is MSSA. Chest x-ray remains relatively cl ear, minimal perihilar atelectasis, no clear-cut evidence of pneumonia. Reevaluated today on 08/21/22, remains in the ICU, intubated, mechanically ventilated, patient remains on assist control rate of 18 tidal volume 400 FiO2 40% and PEEP of 5. Cut down his FiO2 down to 35%, his ABG showed a pO2 of 106 pCO2 48 pH of 7.44. Apparently the patient was placed back on relatively high- dose of fentanyl yesterday, although my recommendation was to keep fentanyl at no more than 2 mcg/kg/h. Found out this morning that the patient was placed on 4 mcg/kg per hour overnight, he is relatively sedated, he is also on Versed at 20 mg per hour. Norepinephrine at 0.02 mcg/kg/m, D5 4 5 at 100 mL per hour. Patient is on vancomycin which I have discontinued and place the patient on cefazolin for his MSSA tracheobronchitis. Enteral feeding is presently on hold, patient developed significant amount of residual overnight. Hence we'll start trickle feedings. At any rate patient was laced on a lower dose of fentanyl, but shortly after the patient became extremely agitated, restless, and could not be ventilated properly with his agitation in spite of fentanyl 12 mcg/kg/h and in spite of Versed at 20 mg per hour hence I recommended that the patient goes on Nimbex, and will be titrated accordingly. In the meantime we'll cut down the fentanyl to 1 mcg/kg/h and he will need lower dose of Versed. To me it seems, patient is having some sort of withdrawal. Most likely alcohol withdrawal considering his clinical history. After paralyzing the patient with Nimbex, and cutting down on the dose of fentanyl, cutting down on the dose of Versed, I recommended the patient goes on Seroquel, I also recommended that he remains intubated and mechanically ventilated. IBC he is not ready to be weaned and e xtubated at this point. Objective - Vital Signs Vital signs: Vital Signs Temp 99.4 F 08/21/22 12:00 Pulse 94 08/21/22 12:00 Resp 18 08/21/22 12:00 BP 167/89 08/21/22 12:00 Pulse Ox 94 L 08/21/22 12:00 FiO2 35 08/21/22 12:00 Intake & Output 08/20/22 08/21/22 08/21/22 18:59 06:59 18:59 Intake Total 2556.837 2319.887 1588.066 Output Total 443 460 645 Balance 2113.837 1859.887 943.066 Weight 90 kg 90 kg Intake: IV 1750 1700 1350 Dextrose 5%-0.45% NaCl 1, 900 1200 400 000 ml @ 100 mls/hr IV . Q10H [facility] Rx#:[id number] Magnesium Sulfate-D5w Pmx 200 200 1 gm In Dextrose/Water 1 100ml.bag @ 100 mls/hr IVPB Q1H [facility] Rx#: [id number] Potassium Chloride 10 meq 200 In Water For Injection 1 100ml.bag @ 100 mls/hr IVPB Q1HR [facility] Rx#: [id number] Sodium Chloride 0.9% 1, 100 000 ml @ 100 mls/hr IV . Q10H [facility] Rx#:[id number] Thiamine 100 mg In Sodium 50 50 Chloride 0.9% 50 ml @ 100 mls/hr IVPB Q24HR [facility] Rx#:[id number] Vancomycin 1,500 mg In 500 500 500 Sodium Chloride 0.9% 500 ml 500 ml @ 167 mls/hr IVPB Q12H [facility] Rx#: [id number] Intake, IV Titration 326.837 539.887 238.066 Amount Midazolam HCl 200 mg In 98.50 90.667 135.167 Sodium Chloride 0.9% 60 ml @ 14 MG/HR 7 mls/hr IV .[id number] [facility] Rx#: [id number] Norepinephrine 4 mg In 0 55.272 Sodium Chloride 0.9% 250 ml @ 0.03 MCG/KG/MIN 9. 332 mls/hr IV .Q24H [facility] Rx#:[id number] fentaNYL (PF) 2,500 mcg 228.337 449.22 47.627 In Sodium Chloride 0.9% 200 ml @ 1 MCG/KG/HR 8. 165 mls/hr IV .Q24H [facility] Rx#:[id number] Tube Feeding 360 50 Other 120 30 Output: Gastric Drainage 210 Urine 443 460 435 Other: Voiding Method Indwelling Catheter Indwelling Catheter Indwelling Catheter ABP, PAP, CO, CI - Last Documented Arterial Blood Pressure 153/78 - Exam Physical Exam: Revealed 57-year-old white male intubated, mechanically ventilated, remains on relatively high dose of fentanyl and Versed Head: Atraumatic, normocephalic. Endotracheal tube and orogastric tube are intact. HEENT:[Neck is supple.] [No neck masses.] [No thyromegaly.] [No JVD.] Chest: [Clear throughout, no crackles, no rhonchi, no wheezes.] Cardiac Exam: [Normal S1 and S2, no S3 gallop, no murmur.] Abdomen: [Soft, nontender, no megaly, no rebound, no guarding, normal bowel sounds.] Extremities: [No clubbing, no edema, no cyanosis.] Neurological Exam: Arousable in spite of being on fentanyl and Versed, high do se, but on lower dose of fentanyl patient was extremely agitated and he was desaturating down, could not be ventilated properly on lower dose of fentanyl Psychiatric : Could not assess. . Musculoskeletal: No deformities. Skin: No rashes - Labs CBC & Chem 7: 08/21/22 07:10 08/21/22 07:10 Labs: Abnormal Lab Results - Last 24 Hours (Table) 08/20/22 08/21/22 08/21/22 Range/Units 07:10 05:30 07:10 RBC (4.30-5.90) m/uL Hgb (13.0-17.5) gm/dL Hct (39.0-53.0) % Plt Count (150-450) k/uL ABG pCO2 48 H (35-45) mmHg ABG HCO3 33 H (21-25) mmol/L ABG Total CO2 34 H (19-24) mmol/L ABG O2 Saturation 98.9 H (94-97) % Potassium 3.0 L (3.5-5.1) mmol/L Chloride 111 H (98-107) mmol/L BUN 7 L (9-20) mg/dL Creatinine 0.63 L (0.66-1.25) mg/dL Glucose 196 H (74-99) mg/dL Calcium 7.3 L (8.4-10.2) mg/dL Vitamin B12 2102.0 H (200.0-944.0) pg/mL TSH 0.220 L (0.465-4.680) mIU/L 08/21/22 Range/Units 07:10 RBC 3.51 L (4.30-5.90) m/uL Hgb 10.9 L (13.0-17.5) gm/dL Hct 33.8 L (39.0-53.0) % Plt Count 74 L (150-450) k/uL ABG pCO2 (35-45) mmHg ABG HCO3 (21-25) mmol/L ABG Total CO2 (19-24) mmol/L ABG O2 Saturation (94-97) % Potassium (3.5-5.1) mmol/L Chloride (98-107) mmol/L BUN (9-20) mg/dL Creatinine (0.66-1.25) mg/dL Glucose (74-99) mg/dL Calcium (8.4-10.2) mg/dL Vitamin B12 (200.0-944.0) pg/mL TSH (0.465-4.680) mIU/L Microbiology - Last 24 Hours (Table) 08/18/22 08:29 Blood Culture - Preliminary Blood No Growth after 72 hours 08/16/22 20:37 Blood Culture Gram Stain - Preliminary Blood Blood Culture - Preliminary Staphylococcus aureus Staphylococcus epidermidis Coagulase Negative Staph Assessment and Plan Assessment: Impression: Acute hypoxic and hypercapnic respiratory failure, mostly because the patient was unable to protect his airways upon his initial presentation, patient required intubation for airways protection. And he was encephalopathic with mental status change upon his initial presentation. MSSA tracheobronchitis, no clear-cut evidence of pneumonia noted on the chest x- ray. Altered mental status, possibly metabolic encephalopathy, suspect alcohol withdrawal. Severe lactic acidosis on admission, with hypovolemia, resolved. Hypovolemic with hypotension Anion gap metabolic acidosis, resolved. Positive blood cultures for staph epidermidis, felt to be a contamination. History of alcoholism Acute kidney injury with hypovolemia, resolved. History of paroxysmal atrial fibrillation Benign essential hypertension Acute toxic metabolic encephalopathy Dyslipidemia Recommendation: Continue ventilatory support, however will try the patient on a couple of days of Nimbex with lower dose of fentanyl and lower dose of Versed. Continue GI and DVT prophylaxis patient is on Lovenox and on Protonix. Continue sedation, will add Seroquel Continue nutritional support. Patient was started on thickened feedings. Continue IV thiamine. Continue to monitor daily labs and address accordingly Patient remains critical, prognosis is relatively guarded. Critical care time is over 30 minutes. Not including the time spent on procedures We'll continue to follow Time with Patient: Greater than 30
[2022-08-21 13:39] LABS: Glucose,Whole Blood 95 mg/dL (70-110)
--- NOTE | 2022-08-21 14:09 | P.PN ---
Subjective Progress Note Date: 08/21/22 Patient was quite tremulous with shakes today upon evaluation. Had several episodes of desaturation while on PEEP of 5, FiO2 of 35%. Patient's fentanyl drip and Versed are ongoing, for no drip at 1 gena per kilogram, Versed at 20. Patient is moving all extremities but not following commands, and opens eyes spontaneously, but does not close his eyes upon request. Case discussed with neurology, felt to be ongoing alcohol withdrawal seizures. Pulmonology will be starting Nimbex in order tolerated vent. General: intubated, sedated HEENT: normocephalic, atraumatic, no tracheal deviation Respiratory: symmetric chest rise, no cyanosis, ventilator dependent CVS: perfusing all extremities, no distal gangrene, no pitting edema GI: soft, ND : no SPT, no CVAT, alexander is present Neuro: sedated, rigors, moving all extremities, not following commands Assessment/plan: Acute hypoxic and hypercapnic respiratory failure status post intubation -Started nimbex today, case discussed with neurology, pulmonology -CXR reviewed and shows breathing tube in high tracheal area, can be pushed further -Labs reviewed: hgb 10.9, stable; PLTs 74, improving Acute metabolic encephalopathy Hyperammonemia History of alcohol abuse -Continue to wean sedation as able -Neurology following, pulmonology following, case discussed with both Shock, likely hypovolemic - resolved High anion gap metabolic acidosis secondary to Severe lactic acidosis - resolved Acute kidney injury - resolved Severe hyperphosphatemia - resolved Severe hypokalemia - resolving Hypomagnesemia -Continue IV fluids -Monitor urine output and renal function, renal ultrasound showed no hydronephrosis -Replete electrolytes per protocol, continue to monitor -Renal following A. fib with RVR status post cardioversion Elevated troponin -Cardiology following Possible upper GI bleed Thrombocytopenia -IV PPI twice a day -Low platelets likely in the setting of chronic alcohol abuse -Gen. surgery following Staph bacteremia -First set of blood cultures positive for staph aureus and epidermidis, likely contaminant. however, sputum culture also showing staph -Patient currently on vancomycin, repeat blood cultures no growth to date DVT ppx: Lovenox Code status: Full code Anticipated discharge place: Pending clinical course Anticipated discharge time: Pending clinical course Objective - Vital Signs Vital signs: Vital Signs Temp 99.4 F 08/21/22 12:00 Pulse 75 08/21/22 13:00 Resp 18 08/21/22 13:00 BP 156/83 08/21/22 13:00 Pulse Ox 96 08/21/22 13:00 FiO2 35 08/21/22 12:00 Intake & Output 08/20/22 08/21/22 08/21/22 18:59 06:59 18:59 Intake Total 2556.837 2319.887 1588.066 Output Total 443 460 645 Balance 2113.837 1859.887 943.066 Weight 90 kg 90 kg Intake: IV 1750 1700 1350 Dextrose 5%-0.45% NaCl 1, 900 1200 400 000 ml @ 100 mls/hr IV . Q10H [facility] Rx#:[id number] Magnesium Sulfate-D5w Pmx 200 200 1 gm In Dextrose/Water 1 100ml.bag @ 100 mls/hr IVPB Q1H [facility] Rx#: [id number] Potassium Chloride 10 meq 200 In Water For Injection 1 100ml.bag @ 100 mls/hr IVPB Q1HR [facility] Rx#: [id number] Sodium Chloride 0.9% 1, 100 000 ml @ 100 mls/hr IV . Q10H [facility] Rx#:[id number] Thiamine 100 mg In Sodium 50 50 Chloride 0.9% 50 ml @ 100 mls/hr IVPB Q24HR [facility] Rx#:[id number] Vancomycin 1,500 mg In 500 500 500 Sodium Chloride 0.9% 500 ml 500 ml @ 167 mls/hr IVPB Q12H [facility] Rx#: [id number] Intake, IV Titration 326.837 539.887 238.066 Amount Midazolam HCl 200 mg In 98.50 90.667 135.167 Sodium Chloride 0.9% 60 ml @ 14 MG/HR 7 mls/hr IV .[id number] [facility] Rx#: [id number] Norepinephrine 4 mg In 0 55.272 Sodium Chloride 0.9% 250 ml @ 0.03 MCG/KG/MIN 9. 332 mls/hr IV .Q24H [facility] Rx#:[id number] fentaNYL (PF) 2,500 mcg 228.337 449.22 47.627 In Sodium Chloride 0.9% 200 ml @ 1 MCG/KG/HR 8. 165 mls/hr IV .Q24H [facility] Rx#:[id number] Tube Feeding 360 50 Other 120 30 Output: Gastric Drainage 210 Urine 443 460 435 Other: Voiding Method Indwelling Catheter Indwelling Catheter Indwelling Catheter ABP, PAP, CO, CI - Last Documented Arterial Blood Pressure 136/59 - Labs CBC & Chem 7: 08/21/22 07:10 08/21/22 07:10 Labs: Abnormal Lab Results - Last 24 Hours (Table) 08/20/22 08/21/22 08/21/22 Range/Units 07:10 05:30 07:10 RBC (4.30-5.90) m/uL Hgb (13.0-17.5) gm/dL Hct (39.0-53.0) % Plt Count (150-450) k/uL ABG pCO2 48 H (35-45) mmHg ABG HCO3 33 H (21-25) mmol/L ABG Total CO2 34 H (19-24) mmol/L ABG O2 Saturation 98.9 H (94-97) % Potassium 3.0 L (3.5-5.1) mmol/L Chloride 111 H (98-107) mmol/L BUN 7 L (9-20) mg/dL Creatinine 0.63 L (0.66-1.25) mg/dL Glucose 196 H (74-99) mg/dL Calcium 7.3 L (8.4-10.2) mg/dL Vitamin B12 2102.0 H (200.0-944.0) pg/mL 08/21/22 Range/Units 07:10 RBC 3.51 L (4.30-5.90) m/uL Hgb 10.9 L (13.0-17.5) gm/dL Hct 33.8 L (39.0-53.0) % Plt Count 74 L (150-450) k/uL ABG pCO2 (35-45) mmHg ABG HCO3 (21-25) mmol/L ABG Total CO2 (19-24) mmol/L ABG O2 Saturation (94-97) % Potassium (3.5-5.1) mmol/L Chloride (98-107) mmol/L BUN (9-20) mg/dL Creatinine (0.66-1.25) mg/dL Glucose (74-99) mg/dL Calcium (8.4-10.2) mg/dL Vitamin B12 (200.0-944.0) pg/mL Microbiology - Last 24 Hours (Table) 08/18/22 08:29 Blood Culture - Preliminary Blood No Growth after 72 hours 08/16/22 20:37 Blood Culture Gram Stain - Preliminary Blood Blood Culture - Preliminary Staphylococcus aureus Staphylococcus epidermidis Coagulase Negative Staph
--- NOTE | 2022-08-21 18:27 | OP ---
OPERATIVE REPORT PROCEDURE PERFORMED: Placement of the right radial arterial line. PREOPERATIVE DIAGNOSIS: Acute respiratory failure. POSTOPERATIVE DIAGNOSIS: Acute respiratory failure. ANESTHESIA USED: None deployed. DESCRIPTION OF PROCEDURE: The right wrist was prepared in a sterile fashion. Drapes were applied. The right radial artery was palpated, cannulated, and a guidewire was placed. A Cook catheter was inserted over the guidewire, and the guidewire was removed. Good blood flow and good waveform noted. No complications. Line was secured using 3-0 silk sutures. MMODL / IJN: [id number] /
--- NOTE | 2022-08-21 18:37 | OP ---
OPERATIVE REPORT PROCEDURE PERFORMED: Placement of the right internal jugular triple-lumen catheter. PREOPERATIVE DIAGNOSIS: Acute respiratory failure. POSTOPERATIVE DIAGNOSIS: Acute respiratory failure. ANESTHESIA USED: 2 mL of 1% lidocaine. DESCRIPTION OF PROCEDURE: The patient was placed in the supine position. The area of the cervical region was prepped in a sterile fashion, and drapes were applied. The area behind the posterior belly of the sternocleidomastoid was locally anesthetized. Then, the right internal jugular vein was easily accessed through the posterior approach behind the posterior belly of the sternocleidomastoid, and as the vein was cannulated, a guidewire was placed and advanced into the vein. Then, the area around the guidewire was dilated, and a triple-lumen catheter was inserted over the guidewire, and the guidewire was removed. Good blood flow in the 3 different ports of the triple-lumen catheter noted. No immediate complications. Chest x-ray was ordered. Line was secured using 3-0 silk sutures. MMODL / IJN: [id number] /
--- NOTE | 2022-08-21 19:00 | XR ---
EXAMINATION TYPE: XR chest 1V portable DATE OF EXAM: 08/21/2022 6:46 PM COMPARISON: Chest radiograph from same day TECHNIQUE: XR chest 1V portable Portable AP radiograph of the chest. CLINICAL INDICATION:Male, 57 years old with history of DALE; FINDINGS: Lungs/Pleura: There is no evidence of focal consolidation, or pneumothorax. Left pleural effusion now more apparent. Pulmonary vascularity: Unremarkable. Heart/mediastinum: Cardiomediastinal silhouette is unremarkable. Musculoskeletal: No acute osseous pathology. There is fixation hardware in the lower cervical spine. Lines/Tubes: Endotracheal tube with distal tip 7.9 cm above the dany. Nasogastric tube with side-port projecting over the distal esophagus. Right internal jugular central venous catheter with distal tip at the right atrium. IMPRESSION: 1. Left pleural effusion is more conspicuous on this exam. 2. Right central venous catheter with tip projecting over the aortic right atrium 3. Nasogastric tube needs to be advanced 14 cm for optimal placement.
[2022-08-21 19:05] LABS: Glucose,Whole Blood 110 mg/dL (70-110)
[2022-08-21 19:19] LABS: Allen Test Performed? Yes
[2022-08-21] MEDS ORDERED: propofoL 100 ML IV ONE (19:26)
[2022-08-21] MEDS ORDERED: LORazepam 2 MG/ML INJ IV STA (19:38)
[2022-08-21] MEDS ORDERED: VANCOMYCIN IV PER PHARMACY 1 EACH MISC MISCELLANE PRN (19:40)
--- NOTE | 2022-08-21 20:25 | PN ---
PROGRESS NOTE HISTORY OF PRESENT ILLNESS: Reji is a 57-year-old gentleman who is in the ICU with respiratory failure. He is intubated on the ventilator and unresponsive. We are following him for paroxysmal atrial fibrillation. He remains in sinus rhythm. PHYSICAL EXAMINATION: VITAL SIGNS: Heart rate is 69 beats per minute. Blood pressure is 94/60, respiratory rate is 18. CHEST: Reveals diminished air entry with occasional rhonchi. HEART: Reveals first and second heart sounds. No gallop. No murmur. MUSCULOSKELETAL: Exam of extremities did not reveal any edema. Peripheral pulses are felt. LABORATORY DATA: Labs show a hemoglobin of 10.9, platelet count is 74, creatinine is 0.6. ASSESSMENT: 1. Respiratory failure. 2. Paroxysmal atrial fibrillation. PLAN: The patient will continue current medications. MMODL / CARLINEN: [id number] /
[2022-08-21] MEDS ORDERED: QUEtiapine 50 MG TAB PO SCH (21:00)
[2022-08-21] MEDS ORDERED: POTASSIUM CHLORIDE ER 20 MEQ TAB.ER PO SCH (22:00)
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
--- NOTE | 2022-08-21 22:49 | CT ---
EXAMINATION TYPE: CT brain wo con DATE OF EXAM: 08/21/2022 COMPARISON: 08/16/2022 HISTORY: persistent altered mental status CT DLP: 1133.4 mGycm Automated exposure control for dose reduction was used. There is mild cerebral atrophy. There is no mass effect or midline shift. No sign of intracranial hem orrhage. There is left temporal parietal craniotomy defect There is some mucosal thickening left maxillary sinus. IMPRESSION: Previous surgery. Mild atrophy. No acute intracranial abnormality. No change compared to recent exam.
[2022-08-21] MEDS: POTASSIUM BICARBONATE/CIT AC 20 MEQ TABLET.EFF NG-TUBE SCH (23:16)
[2022-08-22] MEDS: ARTIFICIAL TEARS-HYPROMELLOSE DROPS 15 ML BTL BOTH EYES SCH ×7 (00:29→23:52)
[2022-08-22] MEDS: DEXTROSE 5%-0.45% NACL 1,000 ML IV SCH ×3 (00:52→21:44)
[2022-08-22 01:22] LABS: Glucose,Whole Blood 102 mg/dL (70-110)
[2022-08-22] MEDS: POTASSIUM BICARBONATE/CIT AC 20 MEQ TABLET.EFF NG-TUBE SCH ×4 (01:30→11:17)
[2022-08-22] MEDS: METOPROLOL TARTRATE 25 MG TAB PO SCH ×3 (03:03→20:00)
--- NOTE | 2022-08-22 03:29 | XR ---
EXAMINATION TYPE: XR chest 1V portable DATE OF EXAM: 08/22/2022 COMPARISON: Yesterday HISTORY: Respiratory failure TECHNIQUE: Single view FINDINGS: There is some infiltrate and atelectasis left lower lobe. There is nasogastric tube with th e tip over the distal esophagus. The endotracheal tube is 2.5 cm from the dany. There is right jugu lar catheter with tip in the right atrium. There are chest leads. IMPRESSION: There is infiltrate and atelectasis left lower lobe with pleural fluid and slightly worse than exam yesterday. Nasogastric tube is in the distal esophagus and not in the stomach. Mild increased pulmonary interstitial infiltrates compared to yesterday.
[2022-08-22 04:21] LABS: ABG PCO2 54 mmHg (35-45); ABG PH 7.38 (7.35-7.45)
[2022-08-22 04:22] LABS: ABG HCO3 32 mmol/L (21-25); ABG PO2 64 mmHg (83-108); ABG TCO2 34 mmol/L (19-24)
[2022-08-22] MEDS: NOREPINEPHRINE 4 MG in SODIUM CHLORIDE 0.9% 250 ML IV SCH (05:14)
[2022-08-22 05:44] LABS: ABG Base Excess 8.8 mmol/L; ABG HCO3 33 mmol/L (21-25); ABG Oxygen Saturation 97.9 % (94-97); ABG PCO2 49 mmHg (35-45); ABG PH 7.44 (7.35-7.45); ABG PO2 89 mmHg (83-108); ABG TCO2 34 mmol/L (19-24); Allen Test Performed? Yes
[2022-08-22 06:05] LABS: Glucose,Whole Blood 99 mg/dL (70-110)
[2022-08-22 07:49] LABS: Glucose,Whole Blood 115 mg/dL (70-110)
[2022-08-22 08:15] LABS: African American GFR (CKD) >90 (>60 ml/min/1.73 sqM); Anion Gap 0 mmol/L; Blood Urea Nitrogen 5 mg/dL (9-20); Calcium 7.3 mg/dL (8.4-10.2); Carbon Dioxide 33 mmol/L (22-30); Chloride 110 mmol/L (98-107); Glucose 112 mg/dL (74-99); Non-African American GFR(CKD) >90 (>60 ml/min/1.73 sqM); Potassium 3.2 mmol/L (3.5-5.1); Sodium 143 mmol/L (137-145)
[2022-08-22] MEDS: fentaNYL (PF) 2,500 MCG in SODIUM CHLORIDE 0.9% 200 ML IV SCH ×2 (08:20→19:39)
[2022-08-22] MEDS: MIDAZOLAM HCL 200 MG in SODIUM CHLORIDE 0.9% 60 ML IV SCH ×2 (08:22→23:52)
[2022-08-22] MEDS ORDERED: Potassium Replacement Protocol 1 EACH MISC MISCELLANE PRN (08:27)
[2022-08-22] MEDS: THIAMINE 100 MG in SODIUM CHLORIDE 0.9% 50 ML IVPB SCH (09:23)
[2022-08-22] MEDS: VANCOMYCIN 1,500 MG in SODIUM CHLORIDE 0.9% 500 ML 500 ML IVPB SCH ×2 (09:24→20:01)
[2022-08-22] MEDS: PANTOPRAZOLE 40 MG/10 ML VIAL IVP SCH ×2 (09:24→20:00)
[2022-08-22] MEDS: CHLORHEXIDINE GLUCONATE 15 ML CUP MUCOUS MEM SCH ×2 (09:24→20:00)
[2022-08-22] MEDS: ENOXAPARIN 40 MG/0.4 ML SYRINGE SQ SCH (09:24)
[2022-08-22 09:40] LABS: HCT 34.2 % (39.0-53.0); HGB 11.2 gm/dL (13.0-17.5); MCHC 32.8 g/dL (31.0-37.0); MCV 94.5 fL (80.0-100.0); Mean Platelet Volume 10.2; Platelet Count 106 k/uL (150-450); RBC 3.62 m/uL (4.30-5.90); RDW 13.4 % (11.5-15.5)
[2022-08-22] MEDS ORDERED: levETIRAcetam IV 1,500 MG in SALINE 1 100ML.BAG IVPB STA (11:34)
[2022-08-22 11:57] LABS: Glucose,Whole Blood 110 mg/dL (70-110)
--- NOTE | 2022-08-22 11:57 | P.PN ---
Subjective Progress Note Date: 08/22/22 Principal diagnosis: Acute hypoxic and hypercapnic respiratory failure 57-year-old male patient with known history of alcoholism and known history of chronic into fibrillation. The patient arrived to the emergency department yesterday for altered mentation suspecting a possible stroke. EMS stated that the patient was at home, and he was in his normal self at around 7:30 PM. Subsequently at around 8 PM, he was found face down in bed unresponsive. In the emergency, the patient was found to be hypotensive. EMS was supporting his breathing by bagging and the patient was having agonal breathing. It was reported to us that the patient is an alcoholic and he was binge drinking. There is also history of emesis and apparently the patient was having significant amount of emesis and ultimately collapsed and he was unable to stand up anymore. In the emergency, the patient was found to have a heart rate of 220. Initial blood pressure was 50/30. He was having agonal breathing. He was not following any commands. Code stroke was activated. Patient was unable to protect his airway. At that point, he was intubated and he was given a 7 ET tube. He was given a total of 3 L of fluid normal saline bolus. CAT scan of the brain was done in addition to a CT angiogram of the head and the neck. The CAT scans were negative. Case was discussed with intervention neurology and no further treatment was done. Initial blood work showed a lactic acid level of 12.4. The patient also will was found to have a potassium level of 2.7. He was in acute kidney injury with a BUN of 52 and a creatinine of 3.6. Sodium level was at 141. Troponins were positive at levels of 0.3 and 0.2 respectively. AST was 191. He was 84 bilirubin was 3.7 calcium was 7.8. His white cell count was 17.2 with a hemoglobin 18.7. INR was 1.4 with a PT of 17.8 and a PTT of 23. Urine drug screen was positive for benzodiazepines and marijuana. Alcohol level was negative. UA was positive for protein, 10 WBCs, 8 RBCs. The chest x-ray was essentially clear. Posterior intubation chest x-ray showed adequate positioning of 82. Vision also has a G-tube in place. No evidence of any pneu mothorax. Subsequent lactic acid level dropped down to 5.3. At this point in time, the patient is intubated on a mechanical ventilator. He is on a Versed drip running at 11 mg/m and fentanyl drip running at 2 Todd respiratory kilogram per hour. His assist-control mode of mechanical ventilation at the rate of 18 with a tidal volume of 400 FiO2 of 50% with a PEEP of 5. Most recent blood gas showed a pH of 7.31 with a pCO2 of 43 and pO2 of 203. IV fluids are currently in the form of normal saline at rate of 1 50 mL an hour. Urine output is adequate and the patient is producing white daryl urine. Repeat electrodes from today are still pending. He was placed on IV heparin. He is on no pressors for now. Note that the patient also had a CAT scan of the chest abdomen and pelvis in the emergency department that showed no significant abnormalities. On today's evaluation of 08/18/2022, the patient is still intubated on a mechanical ventilator. He is very much dependent on sedation as the patient is quite agitated once off sedation. This morning, he is on a combination of Versed at 40 mg an hour and is also on fentanyl and at 4 mcg/kg/h. I was told by the nursing staff that he gets quite agitated when the sedation runs of and this has been noted by the nursing staff. Note that no purposeful activity or following commands and his mentation is not appropriate at this point in time. There may be a component of delirium tremens of this patient. He is a long-time alcoholic. In [facility], another sedation holiday will be given today and his mental status will be reassessed during the day. Meanwhile, this morning, he is on assist-control mode at a rate of 18 with a tidal volume of 400 and FiO2 was at 45% with a PEEP of 5. His chest x-ray showed no acute abnormalities and EKG was in a good location. No significant orotracheal secretions. The blood gas is showing a component of alkalosis as the patient was being given bicarb infusion. His patient's pH is at 7.47 with a pCO2 of 54 and pO2 of 90. On his blood work, the renal function has improved. The patient's creatinine is down to 1.23 with a BUN of 44. Sodium is at 143 and potassium is at 3.70 severity replaced. Serum bicarb is up to 32. WBC was at 14.3 and hematocrit is 49 with a platelet count that is pending for now. Note that her amylase and lipase was slightly elevated and there may be a component of pancreatitis along with alcoholic hepatitis. Blood culture was positive for staph aureus and staph epidermidis. I'm not sure if this is a true infection versus a contaminant. This was only in 1 out of 2 bottles. Another set of blood cultures will be obtained. Noted the patient was given a dose of vancomycin pending further cultures. He is on Lovenox portably prophylaxis. He remains nothing by mouth. No pressors for now. Renal ultrasound was completed yesterday and it showed no evidence of any hydronephrosis. Reevaluated today on 08/19/2022, patient remains in the ICU, intubated and mechanically ventilated. Patient is on assist control rate of 18 tidal volume 400 FiO2 40% and PEEP of 5 ABG showed a pO2 of 84 pCO2 48 pH of 7.47. Patient remains on fentanyl at 4 mcg/kg/h, norepinephrine at 0.01 mcg/kg/m, Versed at 15 mg per hour and he is on IV fluid at the cc per hour in the form of 0.9 normal saline. Patient is receiving vital HPI at 10 mL per hour. Continues to have extreme agitations in spite of sedation, patient is arousable, and gets agitated very easily. Chest x-ray not done today, but chest x-ray from yesterday showed no evidence of infiltrate. Seen by neurology today, felt to have toxic metabolic encephalopathy and alcohol withdrawal. Considering the patient's agitation, he is obviously not a candidate for weaning and extubation at this point. Basic metabolic profile is normal, renal profile is normal. Brain CT on admission showed no intracranial abnormality Reevaluated today on 08/20/22, patient remains in the ICU, intubated and mechanically ventilated. Patient is on assist control rate of 18, tidal volume 400 FiO2 40% and PEEP of 5. ABG showed a pO2 of 100 pCO2 51 pH of 7.41. EEG showed mostly metabolic encephalopathy, no seizure activity. Patient remains on significant amount of sedation including fentanyl and 4 mcg/kg/h, and I cut it down to 2 mcg/kg per hour. Remains on Versed at 20 mg per hour. Normal saline which I have changed to D5 45 at 100 mL per hour. He is on tube feeding at 40 mL per hour. Patient remains on GI and DVT prophylaxis, he is not requiring any pressors. Today I plan to hold or at least cut down on the sedation, assess mental status, and possibly give the patient a trial of weaning if possible. However considering the patient gets extremely agitated, that may not happen today. His potassium is low, and is being corrected as per protocol. WBC count is 5.8 hemoglobin is 11.8. Renal profile is normal potassium is being corrected it is 2.90. Patient's Gram stain of the sputum and culture came back positive for staph aureus. The staph aureus is MSSA. Chest x-ray remains relatively cl ear, minimal perihilar atelectasis, no clear-cut evidence of pneumonia. Reevaluated today on 08/21/22, remains in the ICU, intubated, mechanically ventilated, patient remains on assist control rate of 18 tidal volume 400 FiO2 40% and PEEP of 5. Cut down his FiO2 down to 35%, his ABG showed a pO2 of 106 pCO2 48 pH of 7.44. Apparently the patient was placed back on relatively high- dose of fentanyl yesterday, although my recommendation was to keep fentanyl at no more than 2 mcg/kg/h. Found out this morning that the patient was placed on 4 mcg/kg per hour overnight, he is relatively sedated, he is also on Versed at 20 mg per hour. Norepinephrine at 0.02 mcg/kg/m, D5 4 5 at 100 mL per hour. Patient is on vancomycin which I have discontinued and place the patient on cefazolin for his MSSA tracheobronchitis. Enteral feeding is presently on hold, patient developed significant amount of residual overnight. Hence we'll start trickle feedings. At any rate patient was laced on a lower dose of fentanyl, but shortly after the patient became extremely agitated, restless, and could not be ventilated properly with his agitation in spite of fentanyl 12 mcg/kg/h and in spite of Versed at 20 mg per hour hence I recommended that the patient goes on Nimbex, and will be titrated accordingly. In the meantime we'll cut down the fentanyl to 1 mcg/kg/h and he will need lower dose of Versed. To me it seems, patient is having some sort of withdrawal. Most likely alcohol withdrawal considering his clinical history. After paralyzing the patient with Nimbex, and cutting down on the dose of fentanyl, cutting down on the dose of Versed, I recommended the patient goes on Seroquel, I also recommended that he remains intubated and mechanically ventilated. IB he is not ready to be weaned and e xtubated at this point. Reevaluated today on 08/22/22, patient remains in the ICU, remains intubated and mechanically ventilated. He is on assist control rate of 18 tidal volume 400 FiO2 40% and PEEP of 5. ABG showed a pO2 of 89 pCO2 49 pH of 7.44. Yesterday the patient had to be placed on Nimbex for extreme agitation, and he was throughout the afternoon on fentanyl at 2 mcg/kg/m he was also on Versed at 20 mg per hour, and Nimbex was added yesterday, however in the early evening the patient developed significant hypertension, tachycardia, and he was not doing very well. Clinically I felt this is most likely that the patient was having a seizure that could not be clinically seen while on Nimbex, hence I decided to discontinue his Nimbex completely, and I recommended overnight that the patient goes on fentanyl, Versed, and propofol. After this was done, the patient did great, his blood pressure settled down nicely, his oxygenation improved, and I recommended no more Nimbex for this patient. I clinically believe that the patient is having seizures, neurology will see him today, may have to have repeat EEG. Patient is now on Versed at 15 mg per hour, is also on propofol at 20 mcg/kg/m. Around 4 AM, his fentanyl was discontinued. I plan to start tapering his Versed and propofol down, and if he develops any symptoms to suggest underlying seizure, I will go ahead and start the patient on Keppra until seen by neurology today. Patient is on norepinephrine at 0.02 mcg/kg/m, however this is not necessarily needed if the patient requires less sedation and I will try to taper down his Versed and propofol further. Patient remains on IV fluid D5 4 5 at 100 mL per hour. Obviously considering the events yesterday and last night, the patient is not quite ready for weaning, but I am willing to start tapering the propofol and Versed down, hopefully maintain him on either propofol or Versed alone. Again no more Nimbex for this patient, I believe the patient must have had a seizure while he was on Nimbex and that could not be seen.CBC today is relatively normal basic metabolic profile is normal potassium is a bit low at 3.2, renal profile is normal.patient remains on trickle feeding,/enteral feeding/nutritional support. Objective - Vital Signs Vital signs: Vital Signs Temp 98.8 F 08/22/22 08:00 Pulse 54 L 08/22/22 11:00 Resp 18 08/22/22 11:00 BP 122/74 08/22/22 11:00 Pulse Ox 100 08/22/22 11:00 FiO2 40 08/22/22 11:37 Intake & Output 08/21/22 08/22/22 08/22/22 18:59 06:59 18:59 Intake Total 2268.066 2060.409 1456.574 Output Total 1385 1575 745 Balance 883.066 485.409 711.574 Weight 90 kg 92.6 kg Intake: IV 1950 1700 1000 Dextrose 5%-0.45% NaCl 1, 1000 1200 500 000 ml @ 100 mls/hr IV . Q10H [facility] Rx#:[id number] Magnesium Sulfate-D5w Pmx 200 1 gm In Dextrose/Water 1 100ml.bag @ 100 mls/hr IVPB Q1H [facility] Rx#: [id number] Potassium Chloride 10 meq 200 In Water For Injection 1 100ml.bag @ 100 mls/hr IVPB Q1HR [facility] Rx#: [id number] Thiamine 100 mg In Sodium 50 Chloride 0.9% 50 ml @ 100 mls/hr IVPB Q24HR [facility] Rx#:[id number] Vancomycin 1,500 mg In 500 500 Sodium Chloride 0.9% 500 ml 500 ml @ 167 mls/hr IVPB Q12H [facility] Rx#: [id number] Vancomycin 1,500 mg In 500 Sodium Chloride 0.9% 500 ml 500 ml @ 167 mls/hr IVPB Q12H [facility] Rx#: [id number] Intake, IV Titration 238.066 270.409 251.574 Amount Midazolam HCl 200 mg In 135.167 59.083 94.292 Sodium Chloride 0.9% 60 ml @ 14 MG/HR 7 mls/hr IV .[id number] [facility] Rx#: [id number] Norepinephrine 4 mg In 55.272 0 40.339 Sodium Chloride 0.9% 250 ml @ 0.03 MCG/KG/MIN 9. 332 mls/hr IV .Q24H [facility] Rx#:[id number] fentaNYL (PF) 2,500 mcg 47.627 142.206 30.003 In Sodium Chloride 0.9% 200 ml @ 2 MCG/KG/HR 16. 329 mls/hr IV .[id number] [facility] Rx#:[id number] propofoL 1,000 mg In 69.12 86.94 Empty Bag 1 bag @ 25 MCG/ KG/MIN 13.5 mls/hr IV . Q7H25M [facility] Rx#:[id number] Tube Feeding 50 60 50 Other 30 30 155 Output: Gastric Drainage 210 Urine 1175 1575 745 Other: Voiding Method Indwelling Catheter Indwelling Catheter Indwelling Catheter ABP, PAP, CO, CI - Last Documented Arterial Blood Pressure 101/52 - Exam Physical Exam: Revealed 57-year-old white male intubated, mechanically ventilated, maintained on propofol and on Versed. Head: Atraumatic, normocephalic. Endotracheal tube and orogastric tube are intact. HEENT:[Neck is supple.] [No neck masses.] [No thyromegaly.] [No JVD.] Chest: [Clear throughout, no crackles, no rhonchi, no wheezes.] Cardiac Exam: [Normal S1 and S2, no S3 gallop, no murmur.] Abdomen: [Soft, nontender, no megaly, no rebound, no guarding, normal bowel sounds.] Extremities: [No clubbing, no edema, no cyanosis.] Neurological Exam: could not assess, fully sedated. Psychiatric : Could not assess. . Musculoskeletal: No deformities. Skin: No rashes - Labs CBC & Chem 7: 08/22/22 09:32 08/22/22 05:25 Labs: Abnormal Lab Results - Last 24 Hours (Table) 08/21/22 08/21/22 08/21/22 Range/Units 07:10 19:15 20:01 RBC (4.30-5.90) m/uL Hgb (13.0-17.5) gm/dL Hct (39.0-53.0) % Plt Count (150-450) k/uL ABG pCO2 54 H (35-45) mmHg ABG pO2 64 L (83-108) mmHg ABG HCO3 32 H (21-25) mmol/L ABG Total CO2 34 H (19-24) mmol/L ABG O2 Saturation 93.0 L (94-97) % Potassium 3.2 L (3.5-5.1) mmol/L Chloride (98-107) mmol/L Carbon Dioxide (22-30) mmol/L BUN (9-20) mg/dL Creatinine (0.66-1.25) mg/dL Glucose (74-99) mg/dL POC Glucose (mg/dL) (70-110) mg/dL Calcium (8.4-10.2) mg/dL Procalcitonin 0.61 H (0.02-0.09) ng/mL 08/22/22 08/22/22 08/22/22 Range/Units 05:25 05:38 07:46 RBC (4.30-5.90) m/uL Hgb (13.0-17.5) gm/dL Hct (39.0-53.0) % Plt Count (150-450) k/uL ABG pCO2 49 H (35-45) mmHg ABG pO2 (83-108) mmHg ABG HCO3 33 H (21-25) mmol/L ABG Total CO2 34 H (19-24) mmol/L ABG O2 Saturation 97.9 H (94-97) % Potassium 3.2 L (3.5-5.1) mmol/L Chloride 110 H (98-107) mmol/L Carbon Dioxide 33 H (22-30) mmol/L BUN 5 L (9-20) mg/dL Creatinine 0.65 L (0.66-1.25) mg/dL Glucose 112 H (74-99) mg/dL POC Glucose (mg/dL) 115 H (70-110) mg/dL Calcium 7.3 L (8.4-10.2) mg/dL Procalcitonin (0.02-0.09) ng/mL 08/22/22 Range/Units 09:32 RBC 3.62 L (4.30-5.90) m/uL Hgb 11.2 L (13.0-17.5) gm/dL Hct 34.2 L (39.0-53.0) % Plt Count 106 L (150-450) k/uL ABG pCO2 (35-45) mmHg ABG pO2 (83-108) mmHg ABG HCO3 (21-25) mmol/L ABG Total CO2 (19-24) mmol/L ABG O2 Saturation (94-97) % Potassium (3.5-5.1) mmol/L Chloride (98-107) mmol/L Carbon Dioxide (22-30) mmol/L BUN (9-20) mg/dL Creatinine (0.66-1.25) mg/dL Glucose (74-99) mg/dL POC Glucose (mg/dL) (70-110) mg/dL Calcium (8.4-10.2) mg/dL Procalcitonin (0.02-0.09) ng/mL Microbiology - Last 24 Hours (Table) 08/18/22 08:29 Blood Culture - Preliminary Blood No Growth after 96 hours 08/16/22 20:37 Blood Culture Gram Stain - Final Blood Blood Culture - Final Staphylococcus aureus Staphylococcus epidermidis Coagulase Negative Staph Assessment and Plan Assessment: Impression: Acute hypoxic and hypercapnic respiratory failure, mostly because the patient was unable to protect his airways upon his initial presentation, patient required intubation for airways protection. And he was encephalopathic with mental status change upon his initial presentation. possible recurrent seizures, that to be addressed by neurology on the case, may need to be maintained on Keppra for now. MSSA tracheobronchitis, no clear-cut evidence of pneumonia noted on the chest x- ray.patient was placed on Kefzol yesterday, however considering the issues he had last night, I recommended that he goes back on vancomycin instead of Kefzol and we will eventually switch him back to kefzol Altered mental status, possibly metabolic encephalopathy, suspect alcohol withdrawal. Severe lactic acidosis on admission, with hypovolemia, resolved.impression barnes spect, his severe lactic acidosis may have been related to seizure activity. Hypovolemic with hypotension Anion gap metabolic acidosis, resolved. Positive blood cultures for staph epidermidis, felt to be a contamination. History of alcoholism Acute kidney injury with hypovolemia, resolved. History of paroxysmal atrial fibrillation Benign essential hypertension Acute toxic metabolic encephalopathy, possible seizures. Dyslipidemia Recommendation: Continue ventilatory support,continue propofol and Versed, and titrate both down hopefully try to maintain him on one of them only. Continue GI and DVT prophylaxis patient is on Lovenox and on Protonix. Continue sedation, discontinued Seroquel for now. Although clinically I doubt serotonin syndrome. Continue nutritional support. Continue IV thiamine. Continue to monitor daily labs and address accordingly Patient remains critical, prognosis is relatively guarded. critical care time is over 30 minutes. Patient to be seen by neurology today, and assess need for antiseizure medication We'll continue to follow Time with Patient: Greater than 30
[2022-08-22] MEDS: LORazepam 2 MG/ML INJ IV PRN ×6 (12:38→23:28)
--- NOTE | 2022-08-22 14:10 | P.PN ---
Subjective Progress Note Date: 08/22/22 Patient was stopped on fentanyl, started on propofol and versed. Titrating down as able. UOP is good. Nimbex d/c'd. Seizures overnight. General: intubated, sedated HEENT: normocephalic, atraumatic, no tracheal deviation Respiratory: symmetric chest rise, no cyanosis, ventilator dependent CVS: perfusing all extremities, no distal gangrene, no pitting edema GI: soft, ND : no SPT, no CVAT, alexander is present Neuro: sedated, rigors, moving all extremities, not following commands Assessment/plan: Acute hypoxic and hypercapnic respiratory failure status post intubation -Stopped nimbex today, started propofol, continued versed, downtitrating as able, started keppra, EEG today case discussed with neurology, pulmonology -CXR reviewed and shows breathing tube in high tracheal area, can be pushed fu rther again -Documentation from pulmonology reviewed and discussed at bedside, patient on propofol, versed -CTH negative for bleed Acute metabolic encephalopathy Hyperammonemia History of alcohol abuse -Continue to wean sedation as able -Neurology following, pulmonology following, case discussed with both Shock, likely hypovolemic - resolved High anion gap metabolic acidosis secondary to Severe lactic acidosis - resolved Acute kidney injury - resolved Severe hyperphosphatemia - resolved Severe hypokalemia - resolving Hypomagnesemia -Continue IV fluids -Monitor urine output and renal function, renal ultrasound showed no hydronephrosis -Replete electrolytes per protocol, continue to monitor -Renal following A. fib with RVR status post cardioversion Elevated troponin -Cardiology following Possible upper GI bleed Thrombocytopenia -IV PPI twice a day -Low platelets likely in the setting of chronic alcohol abuse -Gen. surgery following Staph bacteremia -First set of blood cultures positive for staph aureus and epidermidis, likely contaminant. however, sputum culture also showing staph -Patient currently on vancomycin, repeat blood cultures no growth to date DVT ppx: Lovenox Code status: Full code Anticipated discharge place: Pending clinical course Anticipated discharge time: Pending clinical course Objective - Vital Signs Vital signs: Vital Signs Temp 98.1 F 08/22/22 12:00 Pulse 60 08/22/22 13:15 Resp 18 08/22/22 13:15 BP 124/69 08/22/22 13:00 Pulse Ox 98 08/22/22 13:15 FiO2 40 08/22/22 12:00 Intake & Output 08/21/22 08/22/22 08/22/22 18:59 06:59 18:59 Intake Total 2268.066 2060.409 1816.574 Output Total 1385 1575 1070 Balance 883.066 485.409 746.574 Weight 90 kg 92.6 kg Intake: IV 1950 1700 1300 Dextrose 5%-0.45% NaCl 1, 1000 1200 800 000 ml @ 100 mls/hr IV . Q10H [facility] Rx#:[id number] Magnesium Sulfate-D5w Pmx 200 1 gm In Dextrose/Water 1 100ml.bag @ 100 mls/hr IVPB Q1H [facility] Rx#: [id number] Potassium Chloride 10 meq 200 In Water For Injection 1 100ml.bag @ 100 mls/hr IVPB Q1HR [facility] Rx#: [id number] Thiamine 100 mg In Sodium 50 Chloride 0.9% 50 ml @ 100 mls/hr IVPB Q24HR [facility] Rx#:[id number] Vancomycin 1,500 mg In 500 500 Sodium Chloride 0.9% 500 ml 500 ml @ 167 mls/hr IVPB Q12H [facility] Rx#: [id number] Vancomycin 1,500 mg In 500 Sodium Chloride 0.9% 500 ml 500 ml @ 167 mls/hr IVPB Q12H [facility] Rx#: [id number] Intake, IV Titration 238.066 270.409 251.574 Amount Midazolam HCl 200 mg In 135.167 59.083 94.292 Sodium Chloride 0.9% 60 ml @ 14 MG/HR 7 mls/hr IV .[id number] [facility] Rx#: [id number] Norepinephrine 4 mg In 55.272 0 40.339 Sodium Chloride 0.9% 250 ml @ 0.03 MCG/KG/MIN 9. 332 mls/hr IV .Q24H [facility] Rx#:[id number] fentaNYL (PF) 2,500 mcg 47.627 142.206 30.003 In Sodium Chloride 0.9% 200 ml @ 2 MCG/KG/HR 16. 329 mls/hr IV .[id number] [facility] Rx#:[id number] propofoL 1,000 mg In 69.12 86.94 Empty Bag 1 bag @ 25 MCG/ KG/MIN 13.5 mls/hr IV . Q7H25M [facility] Rx#:[id number] Tube Feeding 50 60 80 Other 30 30 185 Output: Gastric Drainage 210 Urine 1175 1575 1070 Other: Voiding Method Indwelling Catheter Indwelling Catheter Indwelling Catheter ABP, PAP, CO, CI - Last Documented Arterial Blood Pressure 90/47 - Labs CBC & Chem 7: 08/22/22 09:32 08/22/22 05:25 Labs: Abnormal Lab Results - Last 24 Hours (Table) 08/21/22 08/21/22 08/21/22 Range/Units 07:10 19:15 20:01 RBC (4.30-5.90) m/uL Hgb (13.0-17.5) gm/dL Hct (39.0-53.0) % Plt Count (150-450) k/uL ABG pCO2 54 H (35-45) mmHg ABG pO2 64 L (83-108) mmHg ABG HCO3 32 H (21-25) mmol/L ABG Total CO2 34 H (19-24) mmol/L ABG O2 Saturation 93.0 L (94-97) % Potassium 3.2 L (3.5-5.1) mmol/L Chloride (98-107) mmol/L Carbon Dioxide (22-30) mmol/L BUN (9-20) mg/dL Creatinine (0.66-1.25) mg/dL Glucose (74-99) mg/dL POC Glucose (mg/dL) (70-110) mg/dL Calcium (8.4-10.2) mg/dL Procalcitonin 0.61 H (0.02-0.09) ng/mL 08/22/22 08/22/22 08/22/22 Range/Units 05:25 05:38 07:46 RBC (4.30-5.90) m/uL Hgb (13.0-17.5) gm/dL Hct (39.0-53.0) % Plt Count (150-450) k/uL ABG pCO2 49 H (35-45) mmHg ABG pO2 (83-108) mmHg ABG HCO3 33 H (21-25) mmol/L ABG Total CO2 34 H (19-24) mmol/L ABG O2 Saturation 97.9 H (94-97) % Potassium 3.2 L (3.5-5.1) mmol/L Chloride 110 H (98-107) mmol/L Carbon Dioxide 33 H (22-30) mmol/L BUN 5 L (9-20) mg/dL Creatinine 0.65 L (0.66-1.25) mg/dL Glucose 112 H (74-99) mg/dL POC Glucose (mg/dL) 115 H (70-110) mg/dL Calcium 7.3 L (8.4-10.2) mg/dL Procalcitonin (0.02-0.09) ng/mL 08/22/22 Range/Units 09:32 RBC 3.62 L (4.30-5.90) m/uL Hgb 11.2 L (13.0-17.5) gm/dL Hct 34.2 L (39.0-53.0) % Plt Count 106 L (150-450) k/uL ABG pCO2 (35-45) mmHg ABG pO2 (83-108) mmHg ABG HCO3 (21-25) mmol/L ABG Total CO2 (19-24) mmol/L ABG O2 Saturation (94-97) % Potassium (3.5-5.1) mmol/L Chloride (98-107) mmol/L Carbon Dioxide (22-30) mmol/L BUN (9-20) mg/dL Creatinine (0.66-1.25) mg/dL Glucose (74-99) mg/dL POC Glucose (mg/dL) (70-110) mg/dL Calcium (8.4-10.2) mg/dL Procalcitonin (0.02-0.09) ng/mL Microbiology - Last 24 Hours (Table) 08/18/22 08:29 Blood Culture - Preliminary Blood No Growth after 96 hours 08/16/22 20:37 Blood Culture Gram Stain - Final Blood Blood Culture - Final Staphylococcus aureus Staphylococcus epidermidis Coagulase Negative Staph
[2022-08-22 17:49] LABS: Glucose,Whole Blood 88 mg/dL (70-110)
[2022-08-22] MEDS: levETIRAcetam IV 1,000 MG in SALINE 1 100ML.BAG IVPB SCH (20:01)
--- NOTE | 2022-08-22 20:22 | EEG ---
ELECTROENCEPHALOGRAM REPORT PREAMBLE: This is a 57-year-old male with altered mental status. The patient is having some seizure-like tremoring. The patient is on a ventilator. The patient currently on Versed drip, fentanyl, and propofol. EEG FINDINGS: This is a 21-channel digital EEG recorded with video component, utilizing 10/20 international system with referential and bipolar montages. The background consists of significantly suppressed brain waves during most of the study intermixed with periodic slight burst of relatively higher amplitude theta activity seen in bihemispheric region. There is amplitude asymmetries noted with higher amplitude in the left frontoparietal region suggestive of breach rhythm due to previous craniotomy defect. Some left parietal sharp appearing waves were seen, which could be part of the breach rhythm, although could potentially be epileptiform as well. Photic stimulation was not performed. Stage II sleep was seen. IMPRESSION: This is an abnormal EEG due to: 1. The presence of amplitude asymmetry with relatively higher amplitude in the left frontoparietal region due to breach rhythm from previous craniotomy defect. 2. Generalized suppressed background consistent with encephalopathy or medication effect. 3. Some sporadic sharp appearing waves seen in the left parietal region, which could be related to underlying breach rhythm, although may suggest underlying cortical irritability. No electrographic seizure was seen in the entire study. Clinical correlation and followup EEG recommended as clinically indicated. LAURA / CARLINEN: [id number] / MTDD
[2022-08-22 23:23] LABS: Glucose,Whole Blood 103 mg/dL (70-110)
[2022-08-23] MEDS ORDERED: SODIUM CHLORIDE 0.9% IVPB STA (00:10)
[2022-08-23] MEDS ORDERED: PHENYTOIN SODIUM IVPB STA (00:10)
[2022-08-23 00:15] LABS: African American GFR (CKD) >90 (>60 ml/min/1.73 sqM); Anion Gap 1 mmol/L; Blood Urea Nitrogen 4 mg/dL (9-20); Calcium 7.6 mg/dL (8.4-10.2); Carbon Dioxide 30 mmol/L (22-30); Chloride 113 mmol/L (98-107); Glucose 113 mg/dL (74-99); Non-African American GFR(CKD) >90 (>60 ml/min/1.73 sqM); Potassium 3.8 mmol/L (3.5-5.1); Sodium 144 mmol/L (137-145)
[2022-08-23] MEDS: NOREPINEPHRINE 4 MG in SODIUM CHLORIDE 0.9% 250 ML IV SCH ×2 (02:53→19:13)
[2022-08-23] MEDS: ARTIFICIAL TEARS-HYPROMELLOSE DROPS 15 ML BTL BOTH EYES SCH ×2 (03:35→11:36)
[2022-08-23 05:19] LABS: Basophils # (A) 0.1 k/uL (0-0.2); Basophils % (A) 1 %; Eosinophils # (A) 0.3 k/uL (0-0.7); Eosinophils % (A) 3 %; HCT 37.4 % (39.0-53.0); HGB 12.1 gm/dL (13.0-17.5); Lymphocytes # (A) 1.2 k/uL (1.0-4.8); Lymphocytes % (A) 11 %; MCH 30.5 pg (25.0-35.0); MCHC 32.3 g/dL (31.0-37.0); MCV 94.4 fL (80.0-100.0); Mean Platelet Volume 9.2; Monocytes # (A) 0.7 k/uL (0-1.0); Monocytes % (A) 6 %; Neutrophils # (A) 9.1 k/uL (1.3-7.7); Neutrophils % (A) 79 %; Platelet Count 156 k/uL (150-450); RBC 3.96 m/uL (4.30-5.90); RDW 13.3 % (11.5-15.5); WBC 11.5 k/uL (3.8-10.6)
[2022-08-23 05:20] LABS: Potassium 3.6 mmol/L (3.5-5.1)
[2022-08-23 05:21] LABS: African American GFR (CKD) >90 (>60 ml/min/1.73 sqM); Anion Gap 1 mmol/L; Blood Urea Nitrogen 4 mg/dL (9-20); Calcium 7.6 mg/dL (8.4-10.2); Carbon Dioxide 30 mmol/L (22-30); Chloride 113 mmol/L (98-107); Glucose 167 mg/dL (74-99); Non-African American GFR(CKD) >90 (>60 ml/min/1.73 sqM); Sodium 144 mmol/L (137-145)
[2022-08-23 05:52] LABS: Glucose,Whole Blood 141 mg/dL (70-110)
[2022-08-23 05:54] LABS: ABG Base Excess 7.1 mmol/L; ABG HCO3 31 mmol/L (21-25); ABG Oxygen Saturation 98.4 % (94-97); ABG PCO2 44 mmHg (35-45); ABG PH 7.46 (7.35-7.45); ABG PO2 100 mmHg (83-108); ABG TCO2 32 mmol/L (19-24); Allen Test Performed? Yes
[2022-08-23] MEDS ORDERED: POTASSIUM BICARBONATE/CIT AC 20 MEQ TABLET.EFF NG-TUBE SCH ×2 (06:00→16:00)
--- NOTE | 2022-08-23 07:17 | XR ---
EXAMINATION TYPE: XR chest 1V portable DATE OF EXAM: 08/23/2022 6:08 AM COMPARISON: Chest radiographs from 08/22/2022 TECHNIQUE: XR chest 1V portable Portable AP radiograph of the chest. CLINICAL INDICATION:Male, 57 years old with history of Vent; FINDINGS: Lungs/Pleura: Blunting of the left costophrenic angle. Patchy airspace disease within both bases. No pneumothorax. Pulmonary vascularity: Unremarkable. Heart/mediastinum: Cardiomediastinal silhouette is unremarkable. Musculoskeletal: No acute osseous pathology. Cervical fusion hardware. Other findings: None Lines/Tubes: Endotracheal tube with distal tip 2.3 cm above the dany Nasogastric tube with its distal tip and side-port projecting under the diaphragm. This has been adva nced. Right internal jugular central venous catheter with distal tip in the right atrium. IMPRESSION: 1. Small left pleural effusion with patchy airspace disease within both bases which may represent at electasis or infiltrate. 2. NG tube has been advanced into appropriate position. Remaining lines and tubes are stable.
[2022-08-23] MEDS: DEXTROSE 5%-0.45% NACL 1,000 ML IV SCH ×2 (09:14→20:24)
[2022-08-23] MEDS: METOPROLOL TARTRATE 25 MG TAB PO SCH ×2 (09:14→20:36)
[2022-08-23] MEDS: PANTOPRAZOLE 40 MG/10 ML VIAL IVP SCH ×2 (09:14→20:36)
[2022-08-23] MEDS: CHLORHEXIDINE GLUCONATE 15 ML CUP MUCOUS MEM SCH ×2 (09:15→20:36)
[2022-08-23] MEDS: levETIRAcetam IV 1,000 MG in SALINE 1 100ML.BAG IVPB SCH ×2 (09:15→20:36)
[2022-08-23] MEDS: ENOXAPARIN 40 MG/0.4 ML SYRINGE SQ SCH (09:15)
[2022-08-23] MEDS: THIAMINE 100 MG in SODIUM CHLORIDE 0.9% 50 ML IVPB SCH (09:16)
[2022-08-23] MEDS: VANCOMYCIN 1,500 MG in SODIUM CHLORIDE 0.9% 500 ML 500 ML IVPB SCH ×2 (09:16→20:24)
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
--- NOTE | 2022-08-23 10:14 | P.PN ---
Subjective Progress Note Date: 08/23/22 Patient had stopped versed overnight, then had another episode of seizrue like activity. Restarted on versed gtt, loaded with dilantin, ongoing keppra. General: intubated, sedated HEENT: normocephalic, atraumatic, no tracheal deviation Respiratory: symmetric chest rise, no cyanosis, ventilator dependent CVS: perfusing all extremities, no distal gangrene, no pitting edema GI: soft, ND : no SPT, no CVAT, alexander is present Neuro: sedated, rigors, moving all extremities, not following commands Assessment/plan: Acute hypoxic and hypercapnic respiratory failure status post intubation -Repeating prolonged EEG today, discussed with neurology, pending read -CXR reviewed today, appears to have left pleural effusion Acute metabolic encephalopathy Hyperammonemia History of alcohol abuse -Continue to wean sedation as able, again on versed and propofol, weaning versed as able. Discussed with nursing, pt following commands with minimal sedation Shock, likely hypovolemic - resolved High anion gap metabolic acidosis secondary to Severe lactic acidosis - resolved Acute kidney injury - resolved Severe hyperphosphatemia - resolved Severe hypokalemia - resolving Hypomagnesemia -Continue IV fluids -Monitor urine output and renal function, renal ultrasound showed no hydronephrosis -Replete electrolytes per protocol, continue to monitor -Renal following A. fib with RVR status post cardioversion Elevated troponin -Cardiology following Possible upper GI bleed Thrombocytopenia -IV PPI twice a day -Low platelets likely in the setting of chronic alcohol abuse -Gen. surgery following Staph bacteremia -First set of blood cultures positive for staph aureus and epidermidis, likely contaminant. however, sputum culture also showing staph -Patient currently on vancomycin, repeat blood cultures no growth to date DVT ppx: Lovenox Code status: Full code Anticipated discharge place: Pending clinical course Anticipated discharge time: Pending clinical course Objective - Vital Signs Vital signs: Vital Signs Temp 98.4 F 08/23/22 08:00 Pulse 65 08/23/22 10:00 Resp 18 08/23/22 10:00 BP 94/57 08/23/22 10:00 Pulse Ox 99 08/23/22 10:00 FiO2 35 08/23/22 10:00 Intake & Output 08/22/22 08/23/22 08/23/22 18:59 06:59 18:59 Intake Total 2345.119 2653.421 597.633 Output Total 1870 1690 320 Balance 475.119 963.421 277.633 Weight 94.4 kg 94.4 kg Intake: IV 1700 1900 400 Dextrose 5%-0.45% NaCl 1, 1200 1200 400 000 ml @ 100 mls/hr IV . Q10H [facility] Rx#:[id number] Phenytoin Sodium Inj 1, 100 850 mg In Sodium Chloride 0.9% 100 ml @ 200 mls/hr IVPB [facility] Rx#: [id number] Vancomycin 1,500 mg In 500 500 Sodium Chloride 0.9% 500 ml 500 ml @ 167 mls/hr IVPB Q12H [facility] Rx#: [id number] levETIRAcetam IV 1,000 mg 100 In Saline 1 100ml.bag @ 400 mls/hr IVPB Q12HR [facility] Rx#:[id number] Intake, IV Titration 310.119 343.421 47.633 Amount Midazolam HCl 200 mg In 94.292 9.801 0 Sodium Chloride 0.9% 60 ml @ 14 MG/HR 7 mls/hr IV .[id number] [facility] Rx#: [id number] Norepinephrine 4 mg In 40.339 215.315 31.523 Sodium Chloride 0.9% 250 ml @ 0.03 MCG/KG/MIN 9. 332 mls/hr IV .Q24H [facility] Rx#:[id number] fentaNYL (PF) 2,500 mcg 30.003 In Sodium Chloride 0.9% 200 ml @ 2 MCG/KG/HR 16. 329 mls/hr IV .[id number] [facility] Rx#:[id number] propofoL 1,000 mg In 145.485 118.305 16.11 Empty Bag 1 bag @ 25 MCG/ KG/MIN 13.5 mls/hr IV . Q7H25M [facility] Rx#:[id number] Tube Feeding 120 260 120 Other 215 150 30 Output: Urine 1870 1690 320 Other: Voiding Method Indwelling Catheter Indwelling Catheter Indwelling Catheter ABP, PAP, CO, CI - Last Documented Arterial Blood Pressure 94/46 - Labs CBC & Chem 7: 08/23/22 04:45 08/23/22 04:45 Labs: Abnormal Lab Results - Last 24 Hours (Table) 08/22/22 08/23/22 08/23/22 Range/Units 23:44 04:45 04:45 WBC 11.5 H (3.8-10.6) k/uL RBC 3.96 L (4.30-5.90) m/uL Hgb 12.1 L (13.0-17.5) gm/dL Hct 37.4 L (39.0-53.0) % Neutrophils # 9.1 H (1.3-7.7) k/uL ABG pH (7.35-7.45) ABG HCO3 (21-25) mmol/L ABG Total CO2 (19-24) mmol/L ABG O2 Saturation (94-97) % Chloride 113 H 113 H (98-107) mmol/L BUN 4 L 4 L (9-20) mg/dL Glucose 113 H 167 H (74-99) mg/dL POC Glucose (mg/dL) (70-110) mg/dL Calcium 7.6 L 7.6 L (8.4-10.2) mg/dL 08/23/22 08/23/22 Range/Units 05:48 05:51 WBC (3.8-10.6) k/uL RBC (4.30-5.90) m/uL Hgb (13.0-17.5) gm/dL Hct (39.0-53.0) % Neutrophils # (1.3-7.7) k/uL ABG pH 7.46 H (7.35-7.45) ABG HCO3 31 H (21-25) mmol/L ABG Total CO2 32 H (19-24) mmol/L ABG O2 Saturation 98.4 H (94-97) % Chloride (98-107) mmol/L BUN (9-20) mg/dL Glucose (74-99) mg/dL POC Glucose (mg/dL) 141 H (70-110) mg/dL Calcium (8.4-10.2) mg/dL Microbiology - Last 24 Hours (Table) 08/18/22 08:29 Blood Culture - Preliminary Blood No Growth after 96 hours
--- NOTE | 2022-08-23 11:34 | P.PN ---
Subjective Progress Note Date: 08/23/22 Principal diagnosis: Acute hypoxic and hypercapnic respiratory failure 57-year-old male patient with known history of alcoholism and known history of chronic into fibrillation. The patient arrived to the emergency department yesterday for altered mentation suspecting a possible stroke. EMS stated that the patient was at home, and he was in his normal self at around 7:30 PM. Subsequently at around 8 PM, he was found face down in bed unresponsive. In the emergency, the patient was found to be hypotensive. EMS was supporting his breathing by bagging and the patient was having agonal breathing. It was reported to us that the patient is an alcoholic and he was binge drinking. There is also history of emesis and apparently the patient was having significant amount of emesis and ultimately collapsed and he was unable to stand up anymore. In the emergency, the patient was found to have a heart rate of 220. Initial blood pressure was 50/30. He was having agonal breathing. He was not following any commands. Code stroke was activated. Patient was unable to protect his airway. At that point, he was intubated and he was given a 7 ET tube. He was given a total of 3 L of fluid normal saline bolus. CAT scan of the brain was done in addition to a CT angiogram of the head and the neck. The CAT scans were negative. Case was discussed with intervention neurology and no further treatment was done. Initial blood work showed a lactic acid level of 12.4. The patient also will was found to have a potassium level of 2.7. He was in acute kidney injury with a BUN of 52 and a creatinine of 3.6. Sodium level was at 141. Troponins were positive at levels of 0.3 and 0.2 respectively. AST was 191. He was 84 bilirubin was 3.7 calcium was 7.8. His white cell count was 17.2 with a hemoglobin 18.7. INR was 1.4 with a PT of 17.8 and a PTT of 23. Urine drug screen was positive for benzodiazepines and marijuana. Alcohol level was negative. UA was positive for protein, 10 WBCs, 8 RBCs. The chest x-ray was essentially clear. Posterior intubation chest x-ray showed adequate positioning of 82. Vision also has a G-tube in place. No evidence of any pneu mothorax. Subsequent lactic acid level dropped down to 5.3. At this point in time, the patient is intubated on a mechanical ventilator. He is on a Versed drip running at 11 mg/m and fentanyl drip running at 2 Todd respiratory kilogram per hour. His assist-control mode of mechanical ventilation at the rate of 18 with a tidal volume of 400 FiO2 of 50% with a PEEP of 5. Most recent blood gas showed a pH of 7.31 with a pCO2 of 43 and pO2 of 203. IV fluids are currently in the form of normal saline at rate of 1 50 mL an hour. Urine output is adequate and the patient is producing white daryl urine. Repeat electrodes from today are still pending. He was placed on IV heparin. He is on no pressors for now. Note that the patient also had a CAT scan of the chest abdomen and pelvis in the emergency department that showed no significant abnormalities. On today's evaluation of 08/18/2022, the patient is still intubated on a mechanical ventilator. He is very much dependent on sedation as the patient is quite agitated once off sedation. This morning, he is on a combination of Versed at 40 mg an hour and is also on fentanyl and at 4 mcg/kg/h. I was told by the nursing staff that he gets quite agitated when the sedation runs of and this has been noted by the nursing staff. Note that no purposeful activity or following commands and his mentation is not appropriate at this point in time. There may be a component of delirium tremens of this patient. He is a long-time alcoholic. In [facility], another sedation holiday will be given today and his mental status will be reassessed during the day. Meanwhile, this morning, he is on assist-control mode at a rate of 18 with a tidal volume of 400 and FiO2 was at 45% with a PEEP of 5. His chest x-ray showed no acute abnormalities and EKG was in a good location. No significant orotracheal secretions. The blood gas is showing a component of alkalosis as the patient was being given bicarb infusion. His patient's pH is at 7.47 with a pCO2 of 54 and pO2 of 90. On his blood work, the renal function has improved. The patient's creatinine is down to 1.23 with a BUN of 44. Sodium is at 143 and potassium is at 3.70 severity replaced. Serum bicarb is up to 32. WBC was at 14.3 and hematocrit is 49 with a platelet count that is pending for now. Note that her amylase and lipase was slightly elevated and there may be a component of pancreatitis along with alcoholic hepatitis. Blood culture was positive for staph aureus and staph epidermidis. I'm not sure if this is a true infection versus a contaminant. This was only in 1 out of 2 bottles. Another set of blood cultures will be obtained. Noted the patient was given a dose of vancomycin pending further cultures. He is on Lovenox portably prophylaxis. He remains nothing by mouth. No pressors for now. Renal ultrasound was completed yesterday and it showed no evidence of any hydronephrosis. Reevaluated today on 08/19/2022, patient remains in the ICU, intubated and mechanically ventilated. Patient is on assist control rate of 18 tidal volume 400 FiO2 40% and PEEP of 5 ABG showed a pO2 of 84 pCO2 48 pH of 7.47. Patient remains on fentanyl at 4 mcg/kg/h, norepinephrine at 0.01 mcg/kg/m, Versed at 15 mg per hour and he is on IV fluid at the cc per hour in the form of 0.9 normal saline. Patient is receiving vital HPI at 10 mL per hour. Continues to have extreme agitations in spite of sedation, patient is arousable, and gets agitated very easily. Chest x-ray not done today, but chest x-ray from yesterday showed no evidence of infiltrate. Seen by neurology today, felt to have toxic metabolic encephalopathy and alcohol withdrawal. Considering the patient's agitation, he is obviously not a candidate for weaning and extubation at this point. Basic metabolic profile is normal, renal profile is normal. Brain CT on admission showed no intracranial abnormality Reevaluated today on 08/20/22, patient remains in the ICU, intubated and mechanically ventilated. Patient is on assist control rate of 18, tidal volume 400 FiO2 40% and PEEP of 5. ABG showed a pO2 of 100 pCO2 51 pH of 7.41. EEG showed mostly metabolic encephalopathy, no seizure activity. Patient remains on significant amount of sedation including fentanyl and 4 mcg/kg/h, and I cut it down to 2 mcg/kg per hour. Remains on Versed at 20 mg per hour. Normal saline which I have changed to D5 45 at 100 mL per hour. He is on tube feeding at 40 mL per hour. Patient remains on GI and DVT prophylaxis, he is not requiring any pressors. Today I plan to hold or at least cut down on the sedation, assess mental status, and possibly give the patient a trial of weaning if possible. However considering the patient gets extremely agitated, that may not happen today. His potassium is low, and is being corrected as per protocol. WBC count is 5.8 hemoglobin is 11.8. Renal profile is normal potassium is being corrected it is 2.90. Patient's Gram stain of the sputum and culture came back positive for staph aureus. The staph aureus is MSSA. Chest x-ray remains relatively cl ear, minimal perihilar atelectasis, no clear-cut evidence of pneumonia. Reevaluated today on 08/21/22, remains in the ICU, intubated, mechanically ventilated, patient remains on assist control rate of 18 tidal volume 400 FiO2 40% and PEEP of 5. Cut down his FiO2 down to 35%, his ABG showed a pO2 of 106 pCO2 48 pH of 7.44. Apparently the patient was placed back on relatively high- dose of fentanyl yesterday, although my recommendation was to keep fentanyl at no more than 2 mcg/kg/h. Found out this morning that the patient was placed on 4 mcg/kg per hour overnight, he is relatively sedated, he is also on Versed at 20 mg per hour. Norepinephrine at 0.02 mcg/kg/m, D5 4 5 at 100 mL per hour. Patient is on vancomycin which I have discontinued and place the patient on cefazolin for his MSSA tracheobronchitis. Enteral feeding is presently on hold, patient developed significant amount of residual overnight. Hence we'll start trickle feedings. At any rate patient was laced on a lower dose of fentanyl, but shortly after the patient became extremely agitated, restless, and could not be ventilated properly with his agitation in spite of fentanyl 12 mcg/kg/h and in spite of Versed at 20 mg per hour hence I recommended that the patient goes on Nimbex, and will be titrated accordingly. In the meantime we'll cut down the fentanyl to 1 mcg/kg/h and he will need lower dose of Versed. To me it seems, patient is having some sort of withdrawal. Most likely alcohol withdrawal considering his clinical history. After paralyzing the patient with Nimbex, and cutting down on the dose of fentanyl, cutting down on the dose of Versed, I recommended the patient goes on Seroquel, I also recommended that he remains intubated and mechanically ventilated. IB he is not ready to be weaned and e xtubated at this point. Reevaluated today on 08/22/22, patient remains in the ICU, remains intubated and mechanically ventilated. He is on assist control rate of 18 tidal volume 400 FiO2 40% and PEEP of 5. ABG showed a pO2 of 89 pCO2 49 pH of 7.44. Yesterday the patient had to be placed on Nimbex for extreme agitation, and he was throughout the afternoon on fentanyl at 2 mcg/kg/m he was also on Versed at 20 mg per hour, and Nimbex was added yesterday, however in the early evening the patient developed significant hypertension, tachycardia, and he was not doing very well. Clinically I felt this is most likely that the patient was having a seizure that could not be clinically seen while on Nimbex, hence I decided to discontinue his Nimbex completely, and I recommended overnight that the patient goes on fentanyl, Versed, and propofol. After this was done, the patient did great, his blood pressure settled down nicely, his oxygenation improved, and I recommended no more Nimbex for this patient. I clinically believe that the patient is having seizures, neurology will see him today, may have to have repeat EEG. Patient is now on Versed at 15 mg per hour, is also on propofol at 20 mcg/kg/m. Around 4 AM, his fentanyl was discontinued. I plan to start tapering his Versed and propofol down, and if he develops any symptoms to suggest underlying seizure, I will go ahead and start the patient on Keppra until seen by neurology today. Patient is on norepinephrine at 0.02 mcg/kg/m, however this is not necessarily needed if the patient requires less sedation and I will try to taper down his Versed and propofol further. Patient remains on IV fluid D5 4 5 at 100 mL per hour. Obviously considering the events yesterday and last night, the patient is not quite ready for weaning, but I am willing to start tapering the propofol and Versed down, hopefully maintain him on either propofol or Versed alone. Again no more Nimbex for this patient, I believe the patient must have had a seizure while he was on Nimbex and that could not be seen.CBC today is relatively normal basic metabolic profile is normal potassium is a bit low at 3.2, renal profile is normal.patient remains on trickle feeding,/enteral feeding/nutritional support. Reevaluated today on , patient remains in the ICU, intubated mechanically ventilated. He is on assist control rate of 18 tidal volume 450 FiO2 35% PEEP of 5 ABG showed a pO2 of 100 pCO2 44 pH of 7.46. His FiO2 was cut down to 35%. Patient continued to have intermittent episodes of seizure-like activities or possibly myoclonic jerks affecting his upper body and upper extremities, with deviation of his eyes with upward gaze. Neurology on the case loaded up with Dilantin yesterday, and he is on Keppra today. Although his EEG according to the neurologist did not show any evidence of seizure activity. Patient to be seen again by neurology today, and decide whether to continue with seizure medications he did receive Dilantin 1 dose yesterday, and he is now on Keppra 1 g twice a day. Early this morning patient had an EEG which is yet to be interpreted by the neurologist. In the meantime the patient is on propofol at 20 mcg/kg/m, Versed 3 mg/h, D5 4 5 at 50 mL per hour and is on vital AF at 30 mL per hour. Unable to cut down on his sedation at this point mostly because of these episodic seizure-like activities or possibly myoclonic jerks. Chest x-ray today showed small left pleural effusion not large enough to consider thoracentesis. His WBC count is 11.5 hemoglobin is 12.1. Basic metabolic profile and renal profile are normal Objective - Vital Signs Vital signs: Vital Signs Temp 98.4 F 08/23/22 08:00 Pulse 65 08/23/22 10:00 Resp 18 08/23/22 10:00 BP 94/57 08/23/22 10:00 Pulse Ox 99 08/23/22 10:00 FiO2 35 08/23/22 11:12 Intake & Output 08/22/22 08/23/22 08/23/22 18:59 06:59 18:59 Intake Total 2345.119 2653.421 597.633 Output Total 1870 1690 320 Balance 475.119 963.421 277.633 Weight 94.4 kg 94.4 kg Intake: IV 1700 1900 400 Dextrose 5%-0.45% NaCl 1, 1200 1200 400 000 ml @ 100 mls/hr IV . Q10H [facility] Rx#:[id number] Phenytoin Sodium Inj 1, 100 850 mg In Sodium Chloride 0.9% 100 ml @ 200 mls/hr IVPB ONCE [facility] Rx#: [id number] Vancomycin 1,500 mg In 500 500 Sodium Chloride 0.9% 500 ml 500 ml @ 167 mls/hr IVPB Q12H [facility] Rx#: [id number] levETIRAcetam IV 1,000 mg 100 In Saline 1 100ml.bag @ 400 mls/hr IVPB Q12HR [facility] Rx#:[id number] Intake, IV Titration 310.119 343.421 47.633 Amount Midazolam HCl 200 mg In 94.292 9.801 0 Sodium Chloride 0.9% 60 ml @ 14 MG/HR 7 mls/hr IV .[id number] [facility] Rx#: [id number] Norepinephrine 4 mg In 40.339 215.315 31.523 Sodium Chloride 0.9% 250 ml @ 0.03 MCG/KG/MIN 9. 332 mls/hr IV .Q24H [facility] Rx#:[id number] fentaNYL (PF) 2,500 mcg 30.003 In Sodium Chloride 0.9% 200 ml @ 2 MCG/KG/HR 16. 329 mls/hr IV .[id number] [facility] Rx#:[id number] propofoL 1,000 mg In 145.485 118.305 16.11 Empty Bag 1 bag @ 25 MCG/ KG/MIN 13.5 mls/hr IV . [id number] [facility] Rx#:[id number] Tube Feeding 120 260 120 Other 215 150 30 Output: Urine 1870 1690 320 Other: Voiding Method Indwelling Catheter Indwelling Catheter Indwelling Catheter ABP, PAP, CO, CI - Last Documented Arterial Blood Pressure 94/46 - Exam Physical Exam: Revealed 57-year-old white male intubated, mechanically ventilated, maintained on propofol and on Versed. Head: Atraumatic, normocephalic. Endotracheal tube and orogastric tube are intact. HEENT:[Neck is supple.] [No neck masses.] [No thyromegaly.] [No JVD.] Chest: [Clear throughout, no crackles, no rhonchi, no wheezes.] Cardiac Exam: [Normal S1 and S2, no S3 gallop, no murmur.] Abdomen: [Soft, nontender, no megaly, no rebound, no guarding, normal bowel sounds.] Extremities: [No clubbing, no edema, no cyanosis.] Neurological Exam: Unable to assess on Versed and propofol, however on lower doses of Versed the patient was noted to have myoclonic-like jerks involving the upper body. Psychiatric : Could not assess. . Musculoskeletal: No deformities. Skin: No rashes - Labs CBC & Chem 7: 08/23/22 04:45 08/23/22 04:45 Labs: Abnormal Lab Results - Last 24 Hours (Table) 08/22/22 08/23/22 08/23/22 Range/Units 23:44 04:45 04:45 WBC 11.5 H (3.8-10.6) k/uL RBC 3.96 L (4.30-5.90) m/uL Hgb 12.1 L (13.0-17.5) gm/dL Hct 37.4 L (39.0-53.0) % Neutrophils # 9.1 H (1.3-7.7) k/uL ABG pH (7.35-7.45) ABG HCO3 (21-25) mmol/L ABG Total CO2 (19-24) mmol/L ABG O2 Saturation (94-97) % Chloride 113 H 113 H (98-107) mmol/L BUN 4 L 4 L (9-20) mg/dL Glucose 113 H 167 H (74-99) mg/dL POC Glucose (mg/dL) (70-110) mg/dL Calcium 7.6 L 7.6 L (8.4-10.2) mg/dL 08/23/22 08/23/22 Range/Units 05:48 05:51 WBC (3.8-10.6) k/uL RBC (4.30-5.90) m/uL Hgb (13.0-17.5) gm/dL Hct (39.0-53.0) % Neutrophils # (1.3-7.7) k/uL ABG pH 7.46 H (7.35-7.45) ABG HCO3 31 H (21-25) mmol/L ABG Total CO2 32 H (19-24) mmol/L ABG O2 Saturation 98.4 H (94-97) % Chloride (98-107) mmol/L BUN (9-20) mg/dL Glucose (74-99) mg/dL POC Glucose (mg/dL) 141 H (70-110) mg/dL Calcium (8.4-10.2) mg/dL Microbiology - Last 24 Hours (Table) 08/18/22 08:29 Blood Culture - Preliminary Blood No Growth after 120 hours Assessment and Plan Assessment: Impression: Acute hypoxic and hypercapnic respiratory failure, mostly because the patient was unable to protect his airways upon his initial presentation, patient required intubation for airways protection. And he was encephalopathic with mental status change upon his initial presentation. possible recurrent seizures, that to be addressed by neurology on the case, patient was loaded with Dilantin last night and now he is on Keppra maintenance. As ordered by neurology on the case. MSSA tracheobronchitis, we will discontinue vancomycin again and start the patient on Kefzol. Altered mental status, possibly metabolic encephalopathy, suspect alcohol withdrawal. Severe lactic acidosis on admission, with hypovolemia, resolved.impression suspect, his severe lactic acidosis may have been related to seizure activity. Hypovolemic with hypotension Anion gap metabolic acidosis, resolved. Positive blood cultures for staph epidermidis, felt to be a contamination. History of alcoholism Acute kidney injury with hypovolemia, resolved. History of paroxysmal atrial fibrillation Benign essential hypertension Acute toxic metabolic encephalopathy, possible seizures. Dyslipidemia Recommendation: Continue ventilatory support, continue relatively low dose of Versed and low dose of propofol for now not quite ready for weaning was to because of his neurologic status Continue GI and DVT prophylaxis patient is on Lovenox and on Protonix. Continue nutritional support. Continue IV thiamine. Continue to monitor daily labs and address accordingly Remains critically ill. Patient to be evaluated by neurology again today and interpreted his EGD which was done earlier this morning. Not quite ready for weaning. Critical care time is over 30 Time with Patient: Greater than 30
[2022-08-23] MEDS: fentaNYL (PF) 2,500 MCG in SODIUM CHLORIDE 0.9% 200 ML IV SCH (11:58)
[2022-08-23 14:38] LABS: Glucose,Whole Blood 127 mg/dL (70-110)
--- NOTE | 2022-08-23 16:36 | P.PN ---
Subjective Progress Note Date: 08/23/22 Patient was seen for a follow-up. Patient currently on propofol 10 mcg/kg/m. Also on Versed 3 mg per hour. Patient seizure-like activity has stopped since on Versed. Patient's daughters has mentioned yesterday that patient has been a very heavy drinker all their lives that very know their father. They believe patient's last drink was on 08/11/2022, whereas he was hospitalized on 08/16/2022. Shruti alonso's daughters states that he has history of traumatic brain injury in 2016 or 2017, when was drunk and he fell down stairs suffering from a brain bleed. He was admitted to [facility] in the ICU for a month. He had undergone craniotomy 2, on the left side. Per nurse report, when the sedation is decreased, he shakes his head yes/no. He moves all 4 extremities. He follows commands. Because of agitation, he was again sedated. He is not able to be extubated. Objective - Vital Signs Vital signs: Vital Signs Temp 98.4 F 08/23/22 12:00 Pulse 75 08/23/22 16:00 Resp 19 08/23/22 16:00 BP 117/70 08/23/22 16:00 Pulse Ox 98 08/23/22 16:00 FiO2 35 08/23/22 16:00 Intake & Output 08/22/22 08/23/22 08/23/22 18:59 06:59 18:59 Intake Total 2345.119 2653.421 1257.084 Output Total 1870 1690 1245 Balance 475.119 963.421 12.084 Weight 94.4 kg 94.4 kg Intake: IV 1700 1900 700 Dextrose 5%-0.45% NaCl 1, 1200 1200 700 000 ml @ 100 mls/hr IV . Q10H [facility] Rx#:[id number] Phenytoin Sodium Inj 1, 100 850 mg In Sodium Chloride 0.9% 100 ml @ 200 mls/hr IVPB ONCE [facility]A Rx#: [id number] Vancomycin 1,500 mg In 500 500 Sodium Chloride 0.9% 500 ml 500 ml @ 167 mls/hr IVPB Q12H [facility] Rx#: [id number] levETIRAcetam IV 1,000 mg 100 In Saline 1 100ml.bag @ 400 mls/hr IVPB Q12HR [facility] Rx#:[id number] Intake, IV Titration 310.119 343.421 157.084 Amount Midazolam HCl 200 mg In 94.292 9.801 0 Sodium Chloride 0.9% 60 ml @ 14 MG/HR 7 mls/hr IV .[id number] [facility] Rx#: [id number] Norepinephrine 4 mg In 40.339 215.315 107.899 Sodium Chloride 0.9% 250 ml @ 0.03 MCG/KG/MIN 9. 332 mls/hr IV .Q24H [facility] Rx#:[id number] fentaNYL (PF) 2,500 mcg 30.003 In Sodium Chloride 0.9% 200 ml @ 2 MCG/KG/HR 16. 329 mls/hr IV .[id number] [facility] Rx#:[id number] propofoL 1,000 mg In 145.485 118.305 49.185 Empty Bag 1 bag @ 25 MCG/ KG/MIN 13.5 mls/hr IV . Q7H25M [facility] Rx#:[id number] Tube Feeding 120 260 340 Other 215 150 60 Output: Urine 1870 1690 1245 Other: Voiding Method Indwelling Catheter Indwelling Catheter Indwelling Catheter ABP, PAP, CO, CI - Last Documented Arterial Blood Pressure 168/88 - Exam Patient is sedated. Patient not responding to painful stimuli. His pupils are equal, round and reactive to light. Oculocephalics are slightly present. Patient does not withdraw to painful stimuli. No seizure-like activity noted. Reflexes are 2 at the biceps, 2 brachioradialis, 2 at the knees, and ankles and plantars are flat. Patient has peripheral edema. - Labs CBC & Chem 7: 08/23/22 04:45 08/23/22 14:38 Labs: Abnormal Lab Results - Last 24 Hours (Table) 08/22/22 08/23/22 08/23/22 Range/Units 23:44 04:45 04:45 WBC 11.5 H (3.8-10.6) k/uL RBC 3.96 L (4.30-5.90) m/uL Hgb 12.1 L (13.0-17.5) gm/dL Hct 37.4 L (39.0-53.0) % Neutrophils # 9.1 H (1.3-7.7) k/uL ABG pH (7.35-7.45) ABG HCO3 (21-25) mmol/L ABG Total CO2 (19-24) mmol/L ABG O2 Saturation (94-97) % Chloride 113 H 113 H (98-107) mmol/L BUN 4 L 4 L (9-20) mg/dL Glucose 113 H 167 H (74-99) mg/dL POC Glucose (mg/dL) (70-110) mg/dL Calcium 7.6 L 7.6 L (8.4-10.2) mg/dL 08/23/22 08/23/22 08/23/22 Range/Units 05:48 05:51 14:35 WBC (3.8-10.6) k/uL RBC (4.30-5.90) m/uL Hgb (13.0-17.5) gm/dL Hct (39.0-53.0) % Neutrophils # (1.3-7.7) k/uL ABG pH 7.46 H (7.35-7.45) ABG HCO3 31 H (21-25) mmol/L ABG Total CO2 32 H (19-24) mmol/L ABG O2 Saturation 98.4 H (94-97) % Chloride (98-107) mmol/L BUN (9-20) mg/dL Glucose (74-99) mg/dL POC Glucose (mg/dL) 141 H 127 H (70-110) mg/dL Calcium (8.4-10.2) mg/dL Microbiology - Last 24 Hours (Table) 08/18/22 08:29 Blood Culture - Preliminary Blood No Growth after 120 hours Assessment and Plan Assessment: * New onset rhythmic twitching of the shoulders bilaterally and some upper limbs, rule out seizures. Rule out metabolic myoclonic jerks. EEG did not reveal any epileptiform activity. No status epilepticus. * Altered mental status, likely due to toxic metabolic encephalopathy * Patient presented with unresponsiveness, likely due to above. * Possible Alcohol withdrawal * History of alcoholism. * Elevated ammonia, abnormal liver functions, rule out cirrhosis. * Acute kidney injury, now resolved * Status post shock, likely hypovolemic * Atrial fibrillation with RVR, status post cardioversion * Acute respiratory failure, on mechanical ventilation * Elevated troponin * Gram-positive bacteremia, possibly contaminant. Plan: * Patient had a prolonged, 2.5 EEG performed today. According to preliminary report from Dr. Lopez, did not reveal any epileptiform activity. No status epilepticus. Official report pending. We will continue Keppra 1000 mg twice a day. Try to wean off propofol, then Versed drip. Patient received Dilantin loading dose last night. Patient's level is 10.9. We will not continue Dilantin, as there is no epileptiform activity. * Repeat EEG 08/22/2022, which was abnormal due to presence of amplitude asymmetry with relatively higher amplitude in the left frontoparietal region due to breach rhythm from previous craniotomy defect. Generalized suppressed background consistent with encephalopathy or medication effect. Also some sporadic sharp-appearing waves seen in the left parietal region, which could be related to underlying breach rhythm, although may suggest underlying cortical irritability. No electrographic seizure was recorded in the entire study. Clinical correlation also recommended. * Patient was given a loading dose of Keppra 1500 mg by supervisor electric. We will maintain on Keppra 1000 mg IV twice a day. Ativan 1 mg every hour as needed for seizure like activity. * Repeat CT head 08/22/2022 revealed previous surgery. Mild atrophy, no acute intracranial process. I personally reviewed CT head, agree with the findings. * CTA reported as negative of the brain. Mild plaque at the carotid artery bifurcation. No evidence of hemodynamic arterial stenosis in the neck. * EEG 08/19/2022 was abnormal due to amplitude asymmetry with relatively higher amplitude activity in the left frontoparietal region due to breach rhythm from previous craniotomy defect. Background slowing of moderate to severe degree, consistent with generalized cerebral dysfunction, as can be seen with toxic metabolic encephalopathy or due to diffuse structural brain abnormality. Clinical correlation is recommended. No epileptiform activity was seen. * B12 2102, folate 12.90, TSH slightly decreased 0.220, with normal free T4 1.37. Possible due to sick euthyroid. * Continue present management. Neurology will follow. * If no improvement, consider lumbar puncture in the morning. Patient is completely afebrile, white cells are normal. No signs of infection otherwise. * Discussed with patient's nurse in detail.
[2022-08-23 16:56] LABS: Albumin 2.1 g/dL (3.5-5.0); Bilirubin, Delta 0.3 mg/dL (0.0-0.2); Total Bilirubin 0.3 mg/dL (0.2-1.3); Total Protein 4.4 g/dL (6.3-8.2)
[2022-08-23 18:04] LABS: Glucose,Whole Blood 113 mg/dL (70-110)
[2022-08-24] MEDS: NOREPINEPHRINE 4 MG in SODIUM CHLORIDE 0.9% 250 ML IV SCH (00:25)
[2022-08-24] MEDS: LORazepam 2 MG/ML INJ IV PRN ×4 (02:07→20:51)
[2022-08-24 05:24] LABS: ABG Base Excess 6.1 mmol/L; ABG HCO3 30 mmol/L (21-25); ABG Oxygen Saturation 98.7 % (94-97); ABG PCO2 44 mmHg (35-45); ABG PH 7.45 (7.35-7.45); ABG PO2 110 mmHg (83-108); ABG TCO2 31 mmol/L (19-24); Allen Test Performed? Yes
[2022-08-24 05:30] LABS: Basophils % (A) 1 %; Eosinophils # (A) 0.3 k/uL (0-0.7); Eosinophils % (A) 4 %; HCT 34.2 % (39.0-53.0); HGB 10.9 gm/dL (13.0-17.5); Lymphocytes # (A) 1.2 k/uL (1.0-4.8); Lymphocytes % (A) 18 %; MCH 30.4 pg (25.0-35.0); MCHC 31.9 g/dL (31.0-37.0); MCV 95.3 fL (80.0-100.0); Mean Platelet Volume 9.2; Monocytes # (A) 0.4 k/uL (0-1.0); Monocytes % (A) 6 %; Neutrophils # (A) 4.5 k/uL (1.3-7.7); Neutrophils % (A) 68 %; Platelet Count 159 k/uL (150-450); RBC 3.59 m/uL (4.30-5.90); RDW 13.5 % (11.5-15.5); WBC 6.6 k/uL (3.8-10.6)
[2022-08-24 05:35] LABS: Prothrombin Time 10.3 sec (9.0-12.0)
[2022-08-24 05:42] LABS: African American GFR (CKD) >90 (>60 ml/min/1.73 sqM); Anion Gap 0 mmol/L; Blood Urea Nitrogen 8 mg/dL (9-20); Calcium 7.5 mg/dL (8.4-10.2); Carbon Dioxide 29 mmol/L (22-30); Chloride 114 mmol/L (98-107); Glucose 124 mg/dL (74-99); Non-African American GFR(CKD) >90 (>60 ml/min/1.73 sqM); Potassium 3.5 mmol/L (3.5-5.1); Sodium 143 mmol/L (137-145)
[2022-08-24] MEDS ORDERED: Potassium Replacement Protocol 1 EACH MISC MISCELLANE PRN ×2 (06:58→07:22)
[2022-08-24] MEDS ORDERED: VANCOMYCIN TROUGH DUE 1 EACH MISC MISCELLANE ONE (07:00)
[2022-08-24] MEDS ORDERED: POTASSIUM CHLORIDE ER 20 MEQ TAB.ER PO SCH (07:00)
[2022-08-24] MEDS: DEXTROSE 5%-0.45% NACL 1,000 ML IV SCH ×2 (07:09→16:00)
[2022-08-24] MEDS: POTASSIUM BICARBONATE/CIT AC 20 MEQ TABLET.EFF NG-TUBE SCH ×2 (07:45→08:25)
--- NOTE | 2022-08-24 07:49 | XR ---
EXAMINATION TYPE: XR chest 1V portable DATE OF EXAM: 08/24/2022 6:22 AM COMPARISON: Chest radiographs from 08/23/2022. TECHNIQUE: XR chest 1V portable Portable AP radiograph of the chest. CLINICAL INDICATION:Male, 57 years old with history of Vent; FINDINGS: Lungs/Pleura: Similar multifocal airspace opacities in the lung bases. Similar left pleural effusion with blunting of the costophrenic angle.. Pulmonary vascularity: Unremarkable. Heart/mediastinum: Cardiomediastinal silhouette is unremarkable. Musculoskeletal: No acute osseous pathology. There is fixation hardware in the lower cervical spine. Lines/Tubes: Endotracheal tube with distal tip 3.7 cm above the dany. Nasogastric tube with its distal tip and side-port projecting under the diaphragm. Right internal jugular central venous catheter with distal tip at the right atrium. IMPRESSION: 1. Similar multifocal airspace opacities. 2. Stable support lines and tubes.
[2022-08-24] MEDS: fentaNYL (PF) 2,500 MCG in SODIUM CHLORIDE 0.9% 200 ML IV SCH ×2 (08:23→16:20)
[2022-08-24] MEDS: THIAMINE 100 MG in SODIUM CHLORIDE 0.9% 50 ML IVPB SCH (08:25)
[2022-08-24] MEDS: CHLORHEXIDINE GLUCONATE 15 ML CUP MUCOUS MEM SCH ×2 (08:25→20:15)
[2022-08-24] MEDS: PANTOPRAZOLE 40 MG/10 ML VIAL IVP SCH ×2 (08:25→20:15)
[2022-08-24] MEDS: VANCOMYCIN 1,500 MG in SODIUM CHLORIDE 0.9% 500 ML 500 ML IVPB SCH ×2 (08:25→19:51)
[2022-08-24] MEDS: METOPROLOL TARTRATE 25 MG TAB PO SCH ×2 (08:28→20:13)
[2022-08-24] MEDS: levETIRAcetam IV 1,000 MG in SALINE 1 100ML.BAG IVPB SCH ×2 (09:20→20:13)
--- NOTE | 2022-08-24 09:59 | P.PN ---
Subjective Progress Note Date: 08/24/22 Patient had versed increased overnight, still having episodes of seizure like activity when sedation is weaned. On keppra, propofol, versed, and ativan PRN for seizure like activity. General: intubated, sedated HEENT: normocephalic, atraumatic, no tracheal deviation Respiratory: symmetric chest rise, no cyanosis, ventilator dependent CVS: perfusing all extremities, no distal gangrene, no pitting edema GI: soft, ND : no SPT, no CVAT, alexander is present Neuro: sedated, rigors, moving all extremities, not following commands Assessment/plan: Acute hypoxic and hypercapnic respiratory failure status post intubation -Repeating prolonged EEG is pending read -Discussed with nursing overnight events requiring increase of versed -CXR reviewed today, continues to have left pleural effusion Acute metabolic encephalopathy Hyperammonemia History of alcohol abuse -Continue to wean sedation as able, again on versed and propofol, keppra, ativan PRN for seizures weaning versed as able. Shock, likely hypovolemic - resolved High anion gap metabolic acidosis secondary to Severe lactic acidosis - resolved Acute kidney injury - resolved Severe hyperphosphatemia - resolved Severe hypokalemia - resolving Hypomagnesemia -Continue IV fluids -Monitor urine output and renal function, renal ultrasound showed no hydronephrosis -Replete electrolytes per protocol, continue to monitor -Renal following A. fib with RVR status post cardioversion Elevated troponin -Cardiology following Thrombocytopenia, resolved -IV PPI twice a day -Low platelets likely in the setting of chronic alcohol abuse -Gen. surgery following Staph bacteremia -First set of blood cultures positive for staph aureus and epidermidis, likely contaminant. however, sputum culture also showing staph -Patient currently on vancomycin, repeat blood cultures no growth to date DVT ppx: Lovenox Code status: Full code Anticipated discharge place: Pending clinical course Anticipated discharge time: Pending clinical course Objective - Vital Signs Vital signs: Vital Signs Temp 98.9 F 08/24/22 01:00 Pulse 63 08/24/22 07:00 Resp 18 08/24/22 07:00 BP 118/75 08/24/22 06:00 Pulse Ox 98 08/24/22 07:00 FiO2 35 08/24/22 07:46 Intake & Output 08/23/22 08/24/22 08/24/22 18:59 06:59 18:59 Intake Total 7256.435 7370.114 190.308 Output Total 1495 880 80 Balance -9.456 784.114 110.308 Weight 94.4 kg 96 kg Intake: IV 800 600 50 Dextrose 5%-0.45% NaCl 1, 800 600 50 000 ml @ 100 mls/hr IV . Q10H [facility] Rx#:[id number] Intake, IV Titration 175.544 664.114 136.308 Amount Midazolam HCl 200 mg In 0 18.725 23.5 Sodium Chloride 0.9% 60 ml @ 14 MG/HR 7 mls/hr IV .[id number] [facility] Rx#: [id number] Norepinephrine 4 mg In 107.899 47.389 83.783 Sodium Chloride 0.9% 250 ml @ 0.03 MCG/KG/MIN 9. 332 mls/hr IV .Q24H [facility] Rx#:[id number] Vancomycin 1,500 mg In 498 Sodium Chloride 0.9% 500 ml 500 ml @ 167 mls/hr IVPB Q12H [facility] Rx#: [id number] propofoL 1,000 mg In 67.645 100.00 29.025 Empty Bag 1 bag @ 25 MCG/ KG/MIN 13.5 mls/hr IV . Q7H25M [facility] Rx#:[id number] Tube Feeding 420 400 4 Other 90 Output: Urine 1495 880 80 Other: Voiding Method Indwelling Catheter Indwelling Catheter ABP, PAP, CO, CI - Last Documented Arterial Blood Pressure 152/68 - Labs CBC & Chem 7: 08/24/22 05:20 08/24/22 05:20 Labs: Abnormal Lab Results - Last 24 Hours (Table) 08/23/22 08/23/22 08/23/22 Range/Units 14:35 16:21 18:02 RBC (4.30-5.90) m/uL Hgb (13.0-17.5) gm/dL Hct (39.0-53.0) % ABG pO2 (83-108) mmHg ABG HCO3 (21-25) mmol/L ABG Total CO2 (19-24) mmol/L ABG O2 Saturation (94-97) % Chloride (98-107) mmol/L BUN (9-20) mg/dL Creatinine (0.66-1.25) mg/dL Glucose (74-99) mg/dL POC Glucose (mg/dL) 127 H 113 H (70-110) mg/dL Calcium (8.4-10.2) mg/dL Delta Bilirubin 0.3 H (0.0-0.2) mg/dL Total Protein 4.4 L (6.3-8.2) g/dL Albumin 2.1 L (3.5-5.0) g/dL 08/24/22 08/24/22 08/24/22 Range/Units 05:20 05:20 05:21 RBC 3.59 L (4.30-5.90) m/uL Hgb 10.9 L (13.0-17.5) gm/dL Hct 34.2 L (39.0-53.0) % ABG pO2 110 H (83-108) mmHg ABG HCO3 30 H (21-25) mmol/L ABG Total CO2 31 H (19-24) mmol/L ABG O2 Saturation 98.7 H (94-97) % Chloride 114 H (98-107) mmol/L BUN 8 L (9-20) mg/dL Creatinine 0.64 L (0.66-1.25) mg/dL Glucose 124 H (74-99) mg/dL POC Glucose (mg/dL) (70-110) mg/dL Calcium 7.5 L (8.4-10.2) mg/dL Delta Bilirubin (0.0-0.2) mg/dL Total Protein (6.3-8.2) g/dL Albumin (3.5-5.0) g/dL Microbiology - Last 24 Hours (Table) 08/18/22 08:29 Blood Culture - Preliminary Blood No Growth after 120 hours
[2022-08-24] MEDS: ENOXAPARIN 40 MG/0.4 ML SYRINGE SQ SCH (10:38)
[2022-08-24] MEDS: MIDAZOLAM HCL 200 MG in SODIUM CHLORIDE 0.9% 60 ML IV SCH (11:06)
[2022-08-24 12:07] LABS: Glucose,Whole Blood 109 mg/dL (70-110)
--- NOTE | 2022-08-24 12:50 | P.PN ---
Subjective Progress Note Date: 08/24/22 Principal diagnosis: Acute hypoxic and hypercapnic respiratory failure 57-year-old male patient with known history of alcoholism and known history of chronic into fibrillation. The patient arrived to the emergency department yesterday for altered mentation suspecting a possible stroke. EMS stated that the patient was at home, and he was in his normal self at around 7:30 PM. Subsequently at around 8 PM, he was found face down in bed unresponsive. In the emergency, the patient was found to be hypotensive. EMS was supporting his breathing by bagging and the patient was having agonal breathing. It was reported to us that the patient is an alcoholic and he was binge drinking. There is also history of emesis and apparently the patient was having significant amount of emesis and ultimately collapsed and he was unable to stand up anymore. In the emergency, the patient was found to have a heart rate of 220. Initial blood pressure was 50/30. He was having agonal breathing. He was not following any commands. Code stroke was activated. Patient was unable to protect his airway. At that point, he was intubated and he was given a 7 ET tube. He was given a total of 3 L of fluid normal saline bolus. CAT scan of the brain was done in addition to a CT angiogram of the head and the neck. The CAT scans were negative. Case was discussed with intervention neurology and no further treatment was done. Initial blood work showed a lactic acid level of 12.4. The patient also will was found to have a potassium level of 2.7. He was in acute kidney injury with a BUN of 52 and a creatinine of 3.6. Sodium level was at 141. Troponins were positive at levels of 0.3 and 0.2 respectively. AST was 191. He was 84 bilirubin was 3.7 calcium was 7.8. His white cell count was 17.2 with a hemoglobin 18.7. INR was 1.4 with a PT of 17.8 and a PTT of 23. Urine drug screen was positive for benzodiazepines and marijuana. Alcohol level was negative. UA was positive for protein, 10 WBCs, 8 RBCs. The chest x-ray was essentially clear. Posterior intubation chest x-ray showed adequate positioning of 82. Vision also has a G-tube in place. No evidence of any pneu mothorax. Subsequent lactic acid level dropped down to 5.3. At this point in time, the patient is intubated on a mechanical ventilator. He is on a Versed drip running at 11 mg/m and fentanyl drip running at 2 Todd respiratory kilogram per hour. His assist-control mode of mechanical ventilation at the rate of 18 with a tidal volume of 400 FiO2 of 50% with a PEEP of 5. Most recent blood gas showed a pH of 7.31 with a pCO2 of 43 and pO2 of 203. IV fluids are currently in the form of normal saline at rate of 1 50 mL an hour. Urine output is adequate and the patient is producing white daryl urine. Repeat electrodes from today are still pending. He was placed on IV heparin. He is on no pressors for now. Note that the patient also had a CAT scan of the chest abdomen and pelvis in the emergency department that showed no significant abnormalities. On today's evaluation of 08/18/2022, the patient is still intubated on a mechanical ventilator. He is very much dependent on sedation as the patient is quite agitated once off sedation. This morning, he is on a combination of Versed at 40 mg an hour and is also on fentanyl and at 4 mcg/kg/h. I was told by the nursing staff that he gets quite agitated when the sedation runs of and this has been noted by the nursing staff. Note that no purposeful activity or following commands and his mentation is not appropriate at this point in time. There may be a component of delirium tremens of this patient. He is a long-time alcoholic. In [facility], another sedation holiday will be given today and his mental status will be reassessed during the day. Meanwhile, this morning, he is on assist-control mode at a rate of 18 with a tidal volume of 400 and FiO2 was at 45% with a PEEP of 5. His chest x-ray showed no acute abnormalities and EKG was in a good location. No significant orotracheal secretions. The blood gas is showing a component of alkalosis as the patient was being given bicarb infusion. His patient's pH is at 7.47 with a pCO2 of 54 and pO2 of 90. On his blood work, the renal function has improved. The patient's creatinine is down to 1.23 with a BUN of 44. Sodium is at 143 and potassium is at 3.70 severity replaced. Serum bicarb is up to 32. WBC was at 14.3 and hematocrit is 49 with a platelet count that is pending for now. Note that her amylase and lipase was slightly elevated and there may be a component of pancreatitis along with alcoholic hepatitis. Blood culture was positive for staph aureus and staph epidermidis. I'm not sure if this is a true infection versus a contaminant. This was only in 1 out of 2 bottles. Another set of blood cultures will be obtained. Noted the patient was given a dose of vancomycin pending further cultures. He is on Lovenox portably prophylaxis. He remains nothing by mouth. No pressors for now. Renal ultrasound was completed yesterday and it showed no evidence of any hydronephrosis. Reevaluated today on 08/19/2022, patient remains in the ICU, intubated and mechanically ventilated. Patient is on assist control rate of 18 tidal volume 400 FiO2 40% and PEEP of 5 ABG showed a pO2 of 84 pCO2 48 pH of 7.47. Patient remains on fentanyl at 4 mcg/kg/h, norepinephrine at 0.01 mcg/kg/m, Versed at 15 mg per hour and he is on IV fluid at the cc per hour in the form of 0.9 normal saline. Patient is receiving vital HPI at 10 mL per hour. Continues to have extreme agitations in spite of sedation, patient is arousable, and gets agitated very easily. Chest x-ray not done today, but chest x-ray from yesterday showed no evidence of infiltrate. Seen by neurology today, felt to have toxic metabolic encephalopathy and alcohol withdrawal. Considering the patient's agitation, he is obviously not a candidate for weaning and extubation at this point. Basic metabolic profile is normal, renal profile is normal. Brain CT on admission showed no intracranial abnormality Reevaluated today on 08/20/22, patient remains in the ICU, intubated and mechanically ventilated. Patient is on assist control rate of 18, tidal volume 400 FiO2 40% and PEEP of 5. ABG showed a pO2 of 100 pCO2 51 pH of 7.41. EEG showed mostly metabolic encephalopathy, no seizure activity. Patient remains on significant amount of sedation including fentanyl and 4 mcg/kg/h, and I cut it down to 2 mcg/kg per hour. Remains on Versed at 20 mg per hour. Normal saline which I have changed to D5 45 at 100 mL per hour. He is on tube feeding at 40 mL per hour. Patient remains on GI and DVT prophylaxis, he is not requiring any pressors. Today I plan to hold or at least cut down on the sedation, assess mental status, and possibly give the patient a trial of weaning if possible. However considering the patient gets extremely agitated, that may not happen today. His potassium is low, and is being corrected as per protocol. WBC count is 5.8 hemoglobin is 11.8. Renal profile is normal potassium is being corrected it is 2.90. Patient's Gram stain of the sputum and culture came back positive for staph aureus. The staph aureus is MSSA. Chest x-ray remains relatively cl ear, minimal perihilar atelectasis, no clear-cut evidence of pneumonia. Reevaluated today on 08/21/22, remains in the ICU, intubated, mechanically ventilated, patient remains on assist control rate of 18 tidal volume 400 FiO2 40% and PEEP of 5. Cut down his FiO2 down to 35%, his ABG showed a pO2 of 106 pCO2 48 pH of 7.44. Apparently the patient was placed back on relatively high- dose of fentanyl yesterday, although my recommendation was to keep fentanyl at no more than 2 mcg/kg/h. Found out this morning that the patient was placed on 4 mcg/kg per hour overnight, he is relatively sedated, he is also on Versed at 20 mg per hour. Norepinephrine at 0.02 mcg/kg/m, D5 4 5 at 100 mL per hour. Patient is on vancomycin which I have discontinued and place the patient on cefazolin for his MSSA tracheobronchitis. Enteral feeding is presently on hold, patient developed significant amount of residual overnight. Hence we'll start trickle feedings. At any rate patient was laced on a lower dose of fentanyl, but shortly after the patient became extremely agitated, restless, and could not be ventilated properly with his agitation in spite of fentanyl 12 mcg/kg/h and in spite of Versed at 20 mg per hour hence I recommended that the patient goes on Nimbex, and will be titrated accordingly. In the meantime we'll cut down the fentanyl to 1 mcg/kg/h and he will need lower dose of Versed. To me it seems, patient is having some sort of withdrawal. Most likely alcohol withdrawal considering his clinical history. After paralyzing the patient with Nimbex, and cutting down on the dose of fentanyl, cutting down on the dose of Versed, I recommended the patient goes on Seroquel, I also recommended that he remains intubated and mechanically ventilated. IB he is not ready to be weaned and e xtubated at this point. Reevaluated today on 08/22/22, patient remains in the ICU, remains intubated and mechanically ventilated. He is on assist control rate of 18 tidal volume 400 FiO2 40% and PEEP of 5. ABG showed a pO2 of 89 pCO2 49 pH of 7.44. Yesterday the patient had to be placed on Nimbex for extreme agitation, and he was throughout the afternoon on fentanyl at 2 mcg/kg/m he was also on Versed at 20 mg per hour, and Nimbex was added yesterday, however in the early evening the patient developed significant hypertension, tachycardia, and he was not doing very well. Clinically I felt this is most likely that the patient was having a seizure that could not be clinically seen while on Nimbex, hence I decided to discontinue his Nimbex completely, and I recommended overnight that the patient goes on fentanyl, Versed, and propofol. After this was done, the patient did great, his blood pressure settled down nicely, his oxygenation improved, and I recommended no more Nimbex for this patient. I clinically believe that the patient is having seizures, neurology will see him today, may have to have repeat EEG. Patient is now on Versed at 15 mg per hour, is also on propofol at 20 mcg/kg/m. Around 4 AM, his fentanyl was discontinued. I plan to start tapering his Versed and propofol down, and if he develops any symptoms to suggest underlying seizure, I will go ahead and start the patient on Keppra until seen by neurology today. Patient is on norepinephrine at 0.02 mcg/kg/m, however this is not necessarily needed if the patient requires less sedation and I will try to taper down his Versed and propofol further. Patient remains on IV fluid D5 4 5 at 100 mL per hour. Obviously considering the events yesterday and last night, the patient is not quite ready for weaning, but I am willing to start tapering the propofol and Versed down, hopefully maintain him on either propofol or Versed alone. Again no more Nimbex for this patient, I believe the patient must have had a seizure while he was on Nimbex and that could not be seen.CBC today is relatively normal basic metabolic profile is normal potassium is a bit low at 3.2, renal profile is normal.patient remains on trickle feeding,/enteral feeding/nutritional support. Reevaluated today on , patient remains in the ICU, intubated mechanically ventilated. He is on assist control rate of 18 tidal volume 450 FiO2 35% PEEP of 5 ABG showed a pO2 of 100 pCO2 44 pH of 7.46. His FiO2 was cut down to 35%. Patient continued to have intermittent episodes of seizure-like activities or possibly myoclonic jerks affecting his upper body and upper extremities, with deviation of his eyes with upward gaze. Neurology on the case loaded up with Dilantin yesterday, and he is on Keppra today. Although his EEG according to the neurologist did not show any evidence of seizure activity. Patient to be seen again by neurology today, and decide whether to continue with seizure medications he did receive Dilantin 1 dose yesterday, and he is now on Keppra 1 g twice a day. Early this morning patient had an EEG which is yet to be interpreted by the neurologist. In the meantime the patient is on propofol at 20 mcg/kg/m, Versed 3 mg/h, D5 4 5 at 50 mL per hour and is on vital AF at 30 mL per hour. Unable to cut down on his sedation at this point mostly because of these episodic seizure-like activities or possibly myoclonic jerks. Chest x-ray today showed small left pleural effusion not large enough to consider thoracentesis. His WBC count is 11.5 hemoglobin is 12.1. Basic metabolic profile and renal profile are normal Patient was reevaluated today on 08/24/22, remains in the ICU intubated and mechanically ventilated, he is tidal volume 450 assist-control rate of 18FiO2 is down to 35%, PEEP is 5. ABG showed a pO2 of 110 pCO2 of 44 pH of 7.45, hence no changes were made in the ventilator settings. Neurologically the patient is about the same, continues to have these episodes of myoclonic-like jerks, remains on propofol at 25 mcg/kg/m, remains on Versed at 6 mg/h, patient is supposedly scheduled to have a lumbar puncture done today. Chest x-ray continues to show a small left pleural effusion, otherwise is unremarkable. Labs were all reviewed and they seem to be relatively unremarkable. Again the only reason the patient could not be extubated to mostly because of his neurological status at this point.CBC is relatively normal ABG as noted above. Basic metabolic profile is relatively. Renal profile is normal. Patient is receiving vital AF at 40 mL per hour. Patient remains on GI and DVT prophylaxis Objective - Vital Signs Vital signs: Vital Signs Temp 98.9 F 08/24/22 08:00 Pulse 65 08/24/22 11:00 Resp 18 08/24/22 11:00 BP 97/55 08/24/22 10:00 Pulse Ox 98 08/24/22 11:00 FiO2 35 08/24/22 08:00 Intake & Output 08/23/22 08/24/22 08/24/22 18:59 06:59 18:59 Intake Total 4541.738 8486.114 1351.958 Output Total 1495 880 340 Balance -9.456 331.699 6550.958 Weight 94.4 kg 96 kg Intake: IV 800 600 850 Dextrose 5%-0.45% NaCl 1, 800 600 250 000 ml @ 100 mls/hr IV . Q10H [facility] Rx#:[id number] Vancomycin 1,500 mg In 500 Sodium Chloride 0.9% 500 ml 500 ml @ 167 mls/hr IVPB Q12H [facility] Rx#: [id number] levETIRAcetam IV 1,000 mg 100 In Saline 1 100ml.bag @ 400 mls/hr IVPB Q12HR [facility] Rx#:[id number] Intake, IV Titration 175.544 664.114 247.958 Amount Midazolam HCl 200 mg In 0 18.725 35.15 Sodium Chloride 0.9% 60 ml @ 14 MG/HR 7 mls/hr IV .[id number] [facility] Rx#: [id number] Norepinephrine 4 mg In 107.899 47.389 83.783 Sodium Chloride 0.9% 250 ml @ 0.03 MCG/KG/MIN 9. 332 mls/hr IV .Q24H [facility] Rx#:[id number] Thiamine 100 mg In Sodium 100 Chloride 0.9% 50 ml @ 100 mls/hr IVPB Q24HR [facility] Rx#:[id number] Vancomycin 1,500 mg In 498 Sodium Chloride 0.9% 500 ml 500 ml @ 167 mls/hr IVPB Q12H [facility] Rx#: [id number] propofoL 1,000 mg In 67.645 100.00 29.025 Empty Bag 1 bag @ 25 MCG/ KG/MIN 13.5 mls/hr IV . [id number] [facility] Rx#:[id number] Tube Feeding 420 400 164 Other 90 90 Output: Urine 1495 880 340 Other: Voiding Method Indwelling Catheter Indwelling Catheter Indwelling Catheter # Bowel Movements 1 ABP, PAP, CO, CI - Last Documented Arterial Blood Pressure 124/60 - Exam Physical Exam: Revealed 57-year-old white male intubated, mechanically ventilated, maintained on propofol and on Versed. Head: Atraumatic, normocephalic. Endotracheal tube and orogastric tube are intact. HEENT:[Neck is supple.] [No neck masses.] [No thyromegaly.] [No JVD.] Chest: [Clear throughout, no crackles, no rhonchi, no wheezes.] Cardiac Exam: [Normal S1 and S2, no S3 gallop, no murmur.] Abdomen: [Soft, nontender, no megaly, no rebound, no guarding, normal bowel sounds.] Extremities: [No clubbing, no edema, no cyanosis.] Neurological Exam: Unable to assess on Versed and propofol,. Psychiatric : Could not assess. . Musculoskeletal: No deformities. Skin: No rashes - Labs CBC & Chem 7: 08/24/22 05:20 08/24/22 05:20 Labs: Abnormal Lab Results - Last 24 Hours (Table) 08/23/22 08/23/22 08/23/22 Range/Units 14:35 16:21 18:02 RBC (4.30-5.90) m/uL Hgb (13.0-17.5) gm/dL Hct (39.0-53.0) % ABG pO2 (83-108) mmHg ABG HCO3 (21-25) mmol/L ABG Total CO2 (19-24) mmol/L ABG O2 Saturation (94-97) % Chloride (98-107) mmol/L BUN (9-20) mg/dL Creatinine (0.66-1.25) mg/dL Glucose (74-99) mg/dL POC Glucose (mg/dL) 127 H 113 H (70-110) mg/dL Calcium (8.4-10.2) mg/dL Delta Bilirubin 0.3 H (0.0-0.2) mg/dL Total Protein 4.4 L (6.3-8.2) g/dL Albumin 2.1 L (3.5-5.0) g/dL 08/24/22 08/24/22 08/24/22 Range/Units 05:20 05:20 05:21 RBC 3.59 L (4.30-5.90) m/uL Hgb 10.9 L (13.0-17.5) gm/dL Hct 34.2 L (39.0-53.0) % ABG pO2 110 H (83-108) mmHg ABG HCO3 30 H (21-25) mmol/L ABG Total CO2 31 H (19-24) mmol/L ABG O2 Saturation 98.7 H (94-97) % Chloride 114 H (98-107) mmol/L BUN 8 L (9-20) mg/dL Creatinine 0.64 L (0.66-1.25) mg/dL Glucose 124 H (74-99) mg/dL POC Glucose (mg/dL) (70-110) mg/dL Calcium 7.5 L (8.4-10.2) mg/dL Delta Bilirubin (0.0-0.2) mg/dL Total Protein (6.3-8.2) g/dL Albumin (3.5-5.0) g/dL Microbiology - Last 24 Hours (Table) 08/18/22 08:29 Blood Culture - Final Blood No Growth after 144 hours Assessment and Plan Assessment: Impression: Acute hypoxic and hypercapnic respiratory failure, mostly because the patient was unable to protect his airways upon his initial presentation, patient required intubation for airways protection. And he was encephalopathic with mental status change upon his initial presentation. possible recurrent seizures, however EEGs done did not reflect any seizure activity as per neurology on the case. MSSA tracheobronchitis, we will discontinue vancomycin again and start the patient on Kefzol. Altered mental status, possibly metabolic encephalopathy, suspect alcohol withdrawal. Severe lactic acidosis on admission, with hypovolemia, resolved.impression suspect, his severe lactic acidosis may have been related to seizure activity. Hypovolemic with hypotension Anion gap metabolic acidosis, resolved. Positive blood cultures for staph epidermidis, felt to be a contamination. History of alcoholism Acute kidney injury with hypovolemia, resolved. History of paroxysmal atrial fibrillation Benign essential hypertension Acute toxic metabolic encephalopathy, possible seizures. Dyslipidemia Recommendation: agree with lumbar puncture to further evaluate his encephalopathy. Continue ventilatory support, not ready for any weaning trials at this point because of his neurological status. Continue GI and DVT prophylaxis patient is on Lovenox and on Protonix. Continue nutritional support. Continue IV thiamine. Continue to monitor daily labs and address accordingly Remains critically ill. continue propofol and Versed and titrate accordingly. Critical care time is over 30 Time with Patient: Greater than 30
[2022-08-24 18:04] LABS: Glucose,Whole Blood 101 mg/dL (70-110)
--- NOTE | 2022-08-24 18:06 | P.PN ---
Subjective Progress Note Date: 08/24/22 Patient was seen for a follow-up. Patient initially seen at 3:45 PM. Patient currently on propofol 25 mcg/kg/m. Also on Versed 6 mg per hour. Patient seizure-like activity has stopped since on Versed. Patient's sedation were stopped at 3:55 PM. Patient re-examined at 4:45 PM. Patient slightly opening the eyes, but not making any eye contact, turning his head, following commands. No seizure-like activity noted. Patient's daughter apparently discussed with the family, and consented for lumbar puncture. Lovenox was held since yesterday. Patient's daughters has mentioned yesterday that patient has been a very heavy drinker all their lives that very know their father. They believe patient's last drink was on 08/11/2022, whereas he was hospitalized on 08/16/2022. Patient's daughters states that he has history of traumatic brain injury in 2016 or 2017, when was drunk and he fell down stairs suffering from a brain bleed. He was admitted to [facility] in [facility] for a month. He had undergone craniotomy 2, on the left side. Objective - Vital Signs Vital signs: Vital Signs Temp 98.8 F 08/24/22 12:00 Pulse 71 08/24/22 15:00 Resp 19 08/24/22 15:00 BP 128/73 08/24/22 13:00 Pulse Ox 97 08/24/22 15:00 FiO2 35 08/24/22 15:41 Intake & Output 08/23/22 08/24/22 08/24/22 18:59 06:59 18:59 Intake Total 1843.303 9226.114 1847.008 Output Total 1495 880 660 Balance -9.456 045.310 8499.008 Weight 94.4 kg 96 kg Intake: IV 280 921 9552 Dextrose 5%-0.45% NaCl 1, 800 600 450 000 ml @ 50 mls/hr IV . Q20H [facility] Rx#:[id number] Vancomycin 1,500 mg In 500 Sodium Chloride 0.9% 500 ml 500 ml @ 167 mls/hr IVPB Q12H [facility] Rx#: [id number] levETIRAcetam IV 1,000 mg 100 In Saline 1 100ml.bag @ 400 mls/hr IVPB Q12HR [facility] Rx#:[id number] Intake, IV Titration 175.544 664.114 353.008 Amount Midazolam HCl 200 mg In 0 18.725 49.75 Sodium Chloride 0.9% 60 ml @ 14 MG/HR 7 mls/hr IV .[id number] [facility] Rx#: [id number] Norepinephrine 4 mg In 107.899 47.389 83.783 Sodium Chloride 0.9% 250 ml @ 0.03 MCG/KG/MIN 9. 332 mls/hr IV .Q24H [facility] Rx#:[id number] Thiamine 100 mg In Sodium 100 Chloride 0.9% 50 ml @ 100 mls/hr IVPB Q24HR [facility] Rx#:[id number] Vancomycin 1,500 mg In 498 Sodium Chloride 0.9% 500 ml 500 ml @ 167 mls/hr IVPB Q12H [facility] Rx#: [id number] propofoL 1,000 mg In 67.645 100.00 119.475 Empty Bag 1 bag @ 25 MCG/ KG/MIN 13.5 mls/hr IV . Q7H25M [facility] Rx#:[id number] Tube Feeding 420 400 324 Other 90 120 Output: Urine 1495 880 660 Other: Voiding Method Indwelling Catheter Indwelling Catheter Indwelling Catheter # Bowel Movements 1 ABP, PAP, CO, CI - Last Documented Arterial Blood Pressure 135/66 - Exam Patient is sedated. Even after sedation was held, patient was minimally grimacing with painful stimuli to the thumb bilaterally. Pupils were equal, round and reacting. Oculocephalics present. Patient would not follow commands. No obvious seizure activity noticed. Tone is equal bilaterally. Reflexes are 2+ and plantars are flat. Patient has peripheral edema. - Labs CBC & Chem 7: 08/24/22 05:20 08/24/22 05:20 Labs: Abnormal Lab Results - Last 24 Hours (Table) 08/23/22 08/23/22 08/24/22 Range/Units 16:21 18:02 05:20 RBC (4.30-5.90) m/uL Hgb (13.0-17.5) gm/dL Hct (39.0-53.0) % ABG pO2 (83-108) mmHg ABG HCO3 (21-25) mmol/L ABG Total CO2 (19-24) mmol/L ABG O2 Saturation (94-97) % Chloride 114 H (98-107) mmol/L BUN 8 L (9-20) mg/dL Creatinine 0.64 L (0.66-1.25) mg/dL Glucose 124 H (74-99) mg/dL POC Glucose (mg/dL) 113 H (70-110) mg/dL Calcium 7.5 L (8.4-10.2) mg/dL Delta Bilirubin 0.3 H (0.0-0.2) mg/dL Total Protein 4.4 L (6.3-8.2) g/dL Albumin 2.1 L (3.5-5.0) g/dL 08/24/22 08/24/22 Range/Units 05:20 05:21 RBC 3.59 L (4.30-5.90) m/uL Hgb 10.9 L (13.0-17.5) gm/dL Hct 34.2 L (39.0-53.0) % ABG pO2 110 H (83-108) mmHg ABG HCO3 30 H (21-25) mmol/L ABG Total CO2 31 H (19-24) mmol/L ABG O2 Saturation 98.7 H (94-97) % Chloride (98-107) mmol/L BUN (9-20) mg/dL Creatinine (0.66-1.25) mg/dL Glucose (74-99) mg/dL POC Glucose (mg/dL) (70-110) mg/dL Calcium (8.4-10.2) mg/dL Delta Bilirubin (0.0-0.2) mg/dL Total Protein (6.3-8.2) g/dL Albumin (3.5-5.0) g/dL Microbiology - Last 24 Hours (Table) 08/18/22 08:29 Blood Culture - Final Blood No Growth after 144 hours Assessment and Plan Assessment: * New onset rhythmic twitching of the shoulders bilaterally and some upper limbs, rule out seizures. Rule out metabolic myoclonic jerks. EEG did not reveal any epileptiform activity. No status epilepticus. * Altered mental status, likely due to toxic metabolic encephalopathy * Patient presented with unresponsiveness, likely due to above. * Possible Alcohol withdrawal * History of alcoholism. * Elevated ammonia, abnormal liver functions, rule out cirrhosis. * Acute kidney injury, now resolved * Status post shock, likely hypovolemic * Atrial fibrillation with RVR, status post cardioversion * Acute respiratory failure, on mechanical ventilation * Elevated troponin * Gram-positive bacteremia, possibly contaminant. Plan: * Patient continues to be severely encephalopathic. Patient also sedated. Even after sedation was held, patient continued to be encephalopathic. Patient's daughters consented for lumbar puncture. It will be performed today. * Patient had a prolonged, 2.5 hour EEG performed 08/23/2022. According to preliminary report from Dr. Lopez, did not reveal any epileptiform activity. Some triphasic waves are seen. No status epilepticus. Official report pending. We will continue Keppra 1000 mg twice a day. Try to wean off propofol, then Versed drip. Patient received Dilantin loading dose last night. Patient's level is 10.9. We will not continue Dilantin, as there is no epileptiform activity. * Repeat EEG 08/22/2022, which was abnormal due to presence of amplitude asymmetry with relatively higher amplitude in the left frontoparietal region due to breach rhythm from previous craniotomy defect. Generalized suppressed background consistent with encephalopathy or medication effect. Also some sporadic sharp-appearing waves seen in the left parietal region, which could be related to underlying breach rhythm, although may suggest underlying cortical irritability. No electrographic seizure was recorded in the entire study. Clinical correlation also recommended. * Patient was given a loading dose of Keppra 1500 mg by quality checker. We will maintain on Keppra 1000 mg IV twice a day. Ativan 1 mg every hour as needed for seizure like activity. * Repeat CT head 08/22/2022 revealed previous surgery. Mild atrophy, no acute intracranial process. I personally reviewed CT head, agree with the findings. * CTA reported as negative of the brain. Mild plaque at the carotid artery bifurcation. No evidence of hemodynamic arterial stenosis in the neck. * Initial EEG 08/19/2022 was abnormal due to amplitude asymmetry with relatively higher amplitude activity in the left frontoparietal region due to breach rh ythm from previous craniotomy defect. Background slowing of moderate to severe degree, consistent with generalized cerebral dysfunction, as can be seen with toxic metabolic encephalopathy or due to diffuse structural brain abnormality. Clinical correlation is recommended. No epileptiform activity was seen. * B12 2102, folate 12.90, TSH slightly decreased 0.220, with normal free T4 1.37. Possible due to sick euthyroid. * Continue present management. Neurology will follow. * Discussed with patient's nurse and patient's daughter in detail.
[2022-08-24 18:47] LABS: Glucose,CSF 69 mg/dL (40-70); Total Protein,CSF 57 mg/dL (12-60)
[2022-08-24 20:47] LABS: Appearance,CSF Bloody
[2022-08-24 20:48] LABS: CSF Tube Number 4; CSF Tube Volume 2.5; Red Blood Cell,CSF 40700 u/L (0-10)
[2022-08-24 20:54] LABS: Nucleated Cells, CSF 160 u/L (0-5)
[2022-08-24 20:57] LABS: Diff, Total Cells Cnt, CSF 100; Eosinophils,CSF 5 %; Mononuclear WBC,CSF 18 %; Polynuclear WBC,CSF 77 %
[2022-08-25 00:18] LABS: Glucose,Whole Blood 108 mg/dL (70-110)
[2022-08-25] MEDS ORDERED: ENOXAPARIN 40 MG/0.4 ML SYRINGE SQ STA (00:50)
[2022-08-25] MEDS: LORazepam 2 MG/ML INJ IV PRN ×4 (00:53→23:45)
--- NOTE | 2022-08-25 02:17 | CT ---
EXAMINATION TYPE: CT lumbar spine wo con DATE OF EXAM: 08/25/2022 COMPARISON: None HISTORY: traumatic spinal tap, r/o epidural hematoma CT DLP: 1680.6 mGycm Automated exposure control for dose reduction was used. Images obtained from the level of T12-S1 vertebra without contrast. The lumbar vertebrae have normal alignment. There is spurring of the endplates throughout the lumbar spine. No compression fracture. Facet joints are intact. There is mild hypertrophic facet arthropathy and ligament thickening with lateral recess stenosis at L4-5. The sacroiliac joints are intact. No l umbar paraspinal mass. No evidence of epidural mass. There is atherosclerotic vascular calcification. IMPRESSION: Hypertrophic degenerative changes in the lumbar spine. No evidence of epidural hematoma.
[2022-08-25 05:39] LABS: ABG Base Excess 4.2 mmol/L; ABG HCO3 28 mmol/L (21-25); ABG Oxygen Saturation 96.9 % (94-97); ABG PCO2 41 mmHg (35-45); ABG PH 7.45 (7.35-7.45); ABG PO2 80 mmHg (83-108); ABG TCO2 30 mmol/L (19-24); Allen Test Performed? Yes
[2022-08-25 06:18] LABS: African American GFR (CKD) >90 (>60 ml/min/1.73 sqM); Non-African American GFR(CKD) >90 (>60 ml/min/1.73 sqM)
[2022-08-25 06:50] LABS: Basophils % (A) 1 %; Eosinophils # (A) 0.3 k/uL (0-0.7); Eosinophils % (A) 4 %; HCT 35.7 % (39.0-53.0); HGB 11.4 gm/dL (13.0-17.5); Lymphocytes # (A) 1.4 k/uL (1.0-4.8); Lymphocytes % (A) 20 %; MCH 30.3 pg (25.0-35.0); MCHC 32.1 g/dL (31.0-37.0); MCV 94.5 fL (80.0-100.0); Mean Platelet Volume 9.2; Monocytes # (A) 0.4 k/uL (0-1.0); Monocytes % (A) 5 %; Neutrophils # (A) 4.9 k/uL (1.3-7.7); Neutrophils % (A) 68 %; Platelet Count 193 k/uL (150-450); RBC 3.78 m/uL (4.30-5.90); RDW 13.5 % (11.5-15.5); WBC 7.1 k/uL (3.8-10.6)
[2022-08-25 06:58] LABS: African American GFR (CKD) >90 (>60 ml/min/1.73 sqM); Anion Gap 1 mmol/L; Blood Urea Nitrogen 9 mg/dL (9-20); Calcium 7.4 mg/dL (8.4-10.2); Carbon Dioxide 26 mmol/L (22-30); Chloride 113 mmol/L (98-107); Glucose 120 mg/dL (74-99); Non-African American GFR(CKD) >90 (>60 ml/min/1.73 sqM); Potassium 3.6 mmol/L (3.5-5.1); Sodium 140 mmol/L (137-145)
--- NOTE | 2022-08-25 07:34 | XR ---
EXAMINATION TYPE: XR chest 1V portable DATE OF EXAM: 08/25/2022 6:34 AM COMPARISON: Chest radiograph from one day prior. TECHNIQUE: XR chest 1V portable Portable AP radiograph of the chest. CLINICAL INDICATION:Male, 57 years old with history of Vent; FINDINGS: Lungs/Pleura: There is no evidence of focal consolidation, or pneumothorax. Blunting of the left cos tophrenic angle. Pulmonary vascularity: Unremarkable. Heart/mediastinum: Cardiomediastinal silhouette is unremarkable. Musculoskeletal: No acute osseous pathology. Lines/Tubes: Endotracheal tube with distal tip 4.9 cm above the dany. Nasogastric tube with its distal tip and side-port projecting under the diaphragm. Right internal jugular central venous catheter with distal tip at the cavoatrial junction. IMPRESSION: Improved aeration of the lungs with persistent small left pleural effusion
[2022-08-25] MEDS: MIDAZOLAM HCL 200 MG in SODIUM CHLORIDE 0.9% 60 ML IV SCH ×2 (07:35→14:34)
[2022-08-25] MEDS ORDERED: POTASSIUM BICARBONATE/CIT AC 20 MEQ TABLET.EFF NG-TUBE SCH (08:00)
[2022-08-25] MEDS: THIAMINE 100 MG in SODIUM CHLORIDE 0.9% 50 ML IVPB SCH (08:35)
[2022-08-25] MEDS: VANCOMYCIN 1,500 MG in SODIUM CHLORIDE 0.9% 500 ML 500 ML IVPB SCH (08:35)
[2022-08-25] MEDS: METOPROLOL TARTRATE 25 MG TAB PO SCH ×2 (08:35→19:59)
[2022-08-25] MEDS: PANTOPRAZOLE 40 MG/10 ML VIAL IVP SCH ×2 (08:35→19:58)
[2022-08-25] MEDS: levETIRAcetam IV 1,000 MG in SALINE 1 100ML.BAG IVPB SCH ×2 (08:35→19:58)
[2022-08-25] MEDS: CHLORHEXIDINE GLUCONATE 15 ML CUP MUCOUS MEM SCH ×2 (08:35→19:58)
[2022-08-25] MEDS: fentaNYL (PF) 2,500 MCG in SODIUM CHLORIDE 0.9% 200 ML IV SCH (08:50)
--- NOTE | 2022-08-25 09:32 | P.PCN ---
Date of Procedure: 08/24/22 Preoperative Diagnosis: Encephalopathy, seizure-like activity, rule out encephalitis Postoperative Diagnosis: Persistent encephalopathy, seizure-like activity, rule out encephalitis Procedure(s) Performed: Lumbar puncture Anesthesia: other Surgeon: Surekha Carr Pathology: other (CSF glucose, proteins, cell count, viral cultures, Gram stain and cultures.) Condition: stable Disposition: ICU Indications for Procedure: Persistent encephalopathy, seizure-like activity, rule out encephalitis Operative Findings: Patient currently intubated, sedated. Informed consent was obtained from patient's daughters. A nurse and two nursing aides helped with the procedure. Procedure performed under strict aseptic condition. Patient was placed in the left lateral position. L4-L5 level was identified and marked. Low back region sterilized with chlorprep, and then with Betadine that came in the kit. A 20- gauge 3.5 inch spinal needle was used. Initial attempt made at L4-L5 lumbar space. I was only feeling resistance, therefore after 2 attempts, I attempted at L3 4 lumbar space. I was able to enter subarachnoid space in 1 pass. Spinal fluid was initially traumatic. It cleared up in the second tube. However patient moved slightly during the procedure, and then CSF became slightly blood- tinged in the third tube, and became slightly more pinkish in the fourth tube. About 12 mL of spinal fluid was obtained in 4 tubes. Stylette was reinserted, and spinal needle withdrawn. Patient tolerated the procedure well. Description of Procedure: Same as above
[2022-08-25] MEDS: ENOXAPARIN 40 MG/0.4 ML SYRINGE SQ SCH (10:08)
[2022-08-25] MEDS: DEXTROSE 5%-0.45% NACL 1,000 ML IV SCH (10:08)
--- NOTE | 2022-08-25 10:43 | P.PN ---
Subjective Progress Note Date: 08/25/22 Principal diagnosis: Acute hypoxic and hypercapnic respiratory failure 57-year-old male patient with known history of alcoholism and known history of chronic into fibrillation. The patient arrived to the emergency department yesterday for altered mentation suspecting a possible stroke. EMS stated that the patient was at home, and he was in his normal self at around 7:30 PM. Subsequently at around 8 PM, he was found face down in bed unresponsive. In the emergency, the patient was found to be hypotensive. EMS was supporting his breathing by bagging and the patient was having agonal breathing. It was reported to us that the patient is an alcoholic and he was binge drinking. There is also history of emesis and apparently the patient was having significant amount of emesis and ultimately collapsed and he was unable to stand up anymore. In the emergency, the patient was found to have a heart rate of 220. Initial blood pressure was 50/30. He was having agonal breathing. He was not following any commands. Code stroke was activated. Patient was unable to protect his airway. At that point, he was intubated and he was given a 7 ET tube. He was given a total of 3 L of fluid normal saline bolus. CAT scan of the brain was done in addition to a CT angiogram of the head and the neck. The CAT scans were negative. Case was discussed with intervention neurology and no further treatment was done. Initial blood work showed a lactic acid level of 12.4. The patient also will was found to have a potassium level of 2.7. He was in acute kidney injury with a BUN of 52 and a creatinine of 3.6. Sodium level was at 141. Troponins were positive at levels of 0.3 and 0.2 respectively. AST was 191. He was 84 bilirubin was 3.7 calcium was 7.8. His white cell count was 17.2 with a hemoglobin 18.7. INR was 1.4 with a PT of 17.8 and a PTT of 23. Urine drug screen was positive for benzodiazepines and marijuana. Alcohol level was negative. UA was positive for protein, 10 WBCs, 8 RBCs. The chest x-ray was essentially clear. Posterior intubation chest x-ray showed adequate positioning of 82. Vision also has a G-tube in place. No evidence of any pneu mothorax. Subsequent lactic acid level dropped down to 5.3. At this point in time, the patient is intubated on a mechanical ventilator. He is on a Versed drip running at 11 mg/m and fentanyl drip running at 2 Todd respiratory kilogram per hour. His assist-control mode of mechanical ventilation at the rate of 18 with a tidal volume of 400 FiO2 of 50% with a PEEP of 5. Most recent blood gas showed a pH of 7.31 with a pCO2 of 43 and pO2 of 203. IV fluids are currently in the form of normal saline at rate of 1 50 mL an hour. Urine output is adequate and the patient is producing white daryl urine. Repeat electrodes from today are still pending. He was placed on IV heparin. He is on no pressors for now. Note that the patient also had a CAT scan of the chest abdomen and pelvis in the emergency department that showed no significant abnormalities. On today's evaluation of 08/18/2022, the patient is still intubated on a mechanical ventilator. He is very much dependent on sedation as the patient is quite agitated once off sedation. This morning, he is on a combination of Versed at 40 mg an hour and is also on fentanyl and at 4 mcg/kg/h. I was told by the nursing staff that he gets quite agitated when the sedation runs of and this has been noted by the nursing staff. Note that no purposeful activity or following commands and his mentation is not appropriate at this point in time. There may be a component of delirium tremens of this patient. He is a long-time alcoholic. In [facility], another sedation holiday will be given today and his mental status will be reassessed during the day. Meanwhile, this morning, he is on assist-control mode at a rate of 18 with a tidal volume of 400 and FiO2 was at 45% with a PEEP of 5. His chest x-ray showed no acute abnormalities and EKG was in a good location. No significant orotracheal secretions. The blood gas is showing a component of alkalosis as the patient was being given bicarb infusion. His patient's pH is at 7.47 with a pCO2 of 54 and pO2 of 90. On his blood work, the renal function has improved. The patient's creatinine is down to 1.23 with a BUN of 44. Sodium is at 143 and potassium is at 3.70 severity replaced. Serum bicarb is up to 32. WBC was at 14.3 and hematocrit is 49 with a platelet count that is pending for now. Note that her amylase and lipase was slightly elevated and there may be a component of pancreatitis along with alcoholic hepatitis. Blood culture was positive for staph aureus and staph epidermidis. I'm not sure if this is a true infection versus a contaminant. This was only in 1 out of 2 bottles. Another set of blood cultures will be obtained. Noted the patient was given a dose of vancomycin pending further cultures. He is on Lovenox portably prophylaxis. He remains nothing by mouth. No pressors for now. Renal ultrasound was completed yesterday and it showed no evidence of any hydronephrosis. Reevaluated today on 08/19/2022, patient remains in the ICU, intubated and mechanically ventilated. Patient is on assist control rate of 18 tidal volume 400 FiO2 40% and PEEP of 5 ABG showed a pO2 of 84 pCO2 48 pH of 7.47. Patient remains on fentanyl at 4 mcg/kg/h, norepinephrine at 0.01 mcg/kg/m, Versed at 15 mg per hour and he is on IV fluid at the cc per hour in the form of 0.9 normal saline. Patient is receiving vital HPI at 10 mL per hour. Continues to have extreme agitations in spite of sedation, patient is arousable, and gets agitated very easily. Chest x-ray not done today, but chest x-ray from yesterday showed no evidence of infiltrate. Seen by neurology today, felt to have toxic metabolic encephalopathy and alcohol withdrawal. Considering the patient's agitation, he is obviously not a candidate for weaning and extubation at this point. Basic metabolic profile is normal, renal profile is normal. Brain CT on admission showed no intracranial abnormality Reevaluated today on 08/20/22, patient remains in the ICU, intubated and mechanically ventilated. Patient is on assist control rate of 18, tidal volume 400 FiO2 40% and PEEP of 5. ABG showed a pO2 of 100 pCO2 51 pH of 7.41. EEG showed mostly metabolic encephalopathy, no seizure activity. Patient remains on significant amount of sedation including fentanyl and 4 mcg/kg/h, and I cut it down to 2 mcg/kg per hour. Remains on Versed at 20 mg per hour. Normal saline which I have changed to D5 45 at 100 mL per hour. He is on tube feeding at 40 mL per hour. Patient remains on GI and DVT prophylaxis, he is not requiring any pressors. Today I plan to hold or at least cut down on the sedation, assess mental status, and possibly give the patient a trial of weaning if possible. However considering the patient gets extremely agitated, that may not happen today. His potassium is low, and is being corrected as per protocol. WBC count is 5.8 hemoglobin is 11.8. Renal profile is normal potassium is being corrected it is 2.90. Patient's Gram stain of the sputum and culture came back positive for staph aureus. The staph aureus is MSSA. Chest x-ray remains relatively cl ear, minimal perihilar atelectasis, no clear-cut evidence of pneumonia. Reevaluated today on 08/21/22, remains in the ICU, intubated, mechanically ventilated, patient remains on assist control rate of 18 tidal volume 400 FiO2 40% and PEEP of 5. Cut down his FiO2 down to 35%, his ABG showed a pO2 of 106 pCO2 48 pH of 7.44. Apparently the patient was placed back on relatively high- dose of fentanyl yesterday, although my recommendation was to keep fentanyl at no more than 2 mcg/kg/h. Found out this morning that the patient was placed on 4 mcg/kg per hour overnight, he is relatively sedated, he is also on Versed at 20 mg per hour. Norepinephrine at 0.02 mcg/kg/m, D5 4 5 at 100 mL per hour. Patient is on vancomycin which I have discontinued and place the patient on cefazolin for his MSSA tracheobronchitis. Enteral feeding is presently on hold, patient developed significant amount of residual overnight. Hence we'll start trickle feedings. At any rate patient was laced on a lower dose of fentanyl, but shortly after the patient became extremely agitated, restless, and could not be ventilated properly with his agitation in spite of fentanyl 12 mcg/kg/h and in spite of Versed at 20 mg per hour hence I recommended that the patient goes on Nimbex, and will be titrated accordingly. In the meantime we'll cut down the fentanyl to 1 mcg/kg/h and he will need lower dose of Versed. To me it seems, patient is having some sort of withdrawal. Most likely alcohol withdrawal considering his clinical history. After paralyzing the patient with Nimbex, and cutting down on the dose of fentanyl, cutting down on the dose of Versed, I recommended the patient goes on Seroquel, I also recommended that he remains intubated and mechanically ventilated. IB he is not ready to be weaned and e xtubated at this point. Reevaluated today on 08/22/22, patient remains in the ICU, remains intubated and mechanically ventilated. He is on assist control rate of 18 tidal volume 400 FiO2 40% and PEEP of 5. ABG showed a pO2 of 89 pCO2 49 pH of 7.44. Yesterday the patient had to be placed on Nimbex for extreme agitation, and he was throughout the afternoon on fentanyl at 2 mcg/kg/m he was also on Versed at 20 mg per hour, and Nimbex was added yesterday, however in the early evening the patient developed significant hypertension, tachycardia, and he was not doing very well. Clinically I felt this is most likely that the patient was having a seizure that could not be clinically seen while on Nimbex, hence I decided to discontinue his Nimbex completely, and I recommended overnight that the patient goes on fentanyl, Versed, and propofol. After this was done, the patient did great, his blood pressure settled down nicely, his oxygenation improved, and I recommended no more Nimbex for this patient. I clinically believe that the patient is having seizures, neurology will see him today, may have to have repeat EEG. Patient is now on Versed at 15 mg per hour, is also on propofol at 20 mcg/kg/m. Around 4 AM, his fentanyl was discontinued. I plan to start tapering his Versed and propofol down, and if he develops any symptoms to suggest underlying seizure, I will go ahead and start the patient on Keppra until seen by neurology today. Patient is on norepinephrine at 0.02 mcg/kg/m, however this is not necessarily needed if the patient requires less sedation and I will try to taper down his Versed and propofol further. Patient remains on IV fluid D5 4 5 at 100 mL per hour. Obviously considering the events yesterday and last night, the patient is not quite ready for weaning, but I am willing to start tapering the propofol and Versed down, hopefully maintain him on either propofol or Versed alone. Again no more Nimbex for this patient, I believe the patient must have had a seizure while he was on Nimbex and that could not be seen.CBC today is relatively normal basic metabolic profile is normal potassium is a bit low at 3.2, renal profile is normal.patient remains on trickle feeding,/enteral feeding/nutritional support. Reevaluated today on , patient remains in the ICU, intubated mechanically ventilated. He is on assist control rate of 18 tidal volume 450 FiO2 35% PEEP of 5 ABG showed a pO2 of 100 pCO2 44 pH of 7.46. His FiO2 was cut down to 35%. Patient continued to have intermittent episodes of seizure-like activities or possibly myoclonic jerks affecting his upper body and upper extremities, with deviation of his eyes with upward gaze. Neurology on the case loaded up with Dilantin yesterday, and he is on Keppra today. Although his EEG according to the neurologist did not show any evidence of seizure activity. Patient to be seen again by neurology today, and decide whether to continue with seizure medications he did receive Dilantin 1 dose yesterday, and he is now on Keppra 1 g twice a day. Early this morning patient had an EEG which is yet to be interpreted by the neurologist. In the meantime the patient is on propofol at 20 mcg/kg/m, Versed 3 mg/h, D5 4 5 at 50 mL per hour and is on vital AF at 30 mL per hour. Unable to cut down on his sedation at this point mostly because of these episodic seizure-like activities or possibly myoclonic jerks. Chest x-ray today showed small left pleural effusion not large enough to consider thoracentesis. His WBC count is 11.5 hemoglobin is 12.1. Basic metabolic profile and renal profile are normal Patient was reevaluated today on 08/24/22, remains in the ICU intubated and mechanically ventilated, he is tidal volume 450 assist-control rate of 18FiO2 is down to 35%, PEEP is 5. ABG showed a pO2 of 110 pCO2 of 44 pH of 7.45, hence no changes were made in the ventilator settings. Neurologically the patient is about the same, continues to have these episodes of myoclonic-like jerks, remains on propofol at 25 mcg/kg/m, remains on Versed at 6 mg/h, patient is supposedly scheduled to have a lumbar puncture done today. Chest x-ray continues to show a small left pleural effusion, otherwise is unremarkable. Labs were all reviewed and they seem to be relatively unremarkable. Again the only reason the patient could not be extubated to mostly because of his neurological status at this point.CBC is relatively normal ABG as noted above. Basic metabolic profile is relatively. Renal profile is normal. Patient is receiving vital AF at 40 mL per hour. Patient remains on GI and DVT prophylaxis Reevaluated today on 08/25/22, patient remains in the ICU, intubated and mechanically ventilated. He is on assist control rate of 18 tidal volume 450 FiO2 35% PEEP of 5. Remains on propofol at 40 mcg/kg/m is also on Versed 1 mg/h. And he is receiving vital AF at 58 mL per hour. No major issues over the last 24 hours, patient seems to be quite sedated with the propofol and Versed. I plan to lower the dose of propofol, and hopefully get to assess mental status today. I could not awaken the patient today to assess mental status, hence I recommended propofol to be cut down significantly and assess mental status RBC the patient not quite ready for any weaning trials. Chest x-ray showed small left pleural effusion, otherwise basically unremarkable. Patient remains on va ncomycin for his MSSA, hence I will go back and switch him to 2 g IV piggyback every 8 hours. Labs today showed a relatively normal CBC, normal basic metabolic profile, his spinal fluid results, initial report seems to be unremarkable, however the spinal fluid was obviously bloody and was traumatic. Whether the patient will need a repeat CT of the brain again because of his bloody spinal fluid, that will be decided upon by neurology on the case. Lumbar spine CT showed no evidence of epidural hematoma Objective - Vital Signs Vital signs: Vital Signs Temp 96.8 F L 08/25/22 08:00 Pulse 70 08/25/22 10:00 Resp 21 08/25/22 10:00 BP 104/53 08/25/22 08:00 Pulse Ox 98 08/25/22 10:00 FiO2 35 08/25/22 08:00 Intake & Output 08/24/22 08/25/22 08/25/22 18:59 06:59 18:59 Intake Total 2171.108 3247.482 7517.117 Output Total 1030 960 700 Balance 1141.108 973.252 472.117 Weight 95.8 kg Intake: IV 1200 1148 750 Dextrose 5%-0.45% NaCl 1, 600 650 150 000 ml @ 50 mls/hr IV . Q20H [facility] Rx#:[id number] Vancomycin 1,500 mg In 500 498 500 Sodium Chloride 0.9% 500 ml 500 ml @ 167 mls/hr IVPB Q12H [facility] Rx#: [id number] levETIRAcetam IV 1,000 mg 100 100 In Saline 1 100ml.bag @ 400 mls/hr IVPB Q12HR [facility] Rx#:[id number] Intake, IV Titration 361.108 209.252 188.117 Amount Midazolam HCl 200 mg In 49.75 30.817 10.267 Sodium Chloride 0.9% 60 ml @ 14 MG/HR 7 mls/hr IV .[id number] [facility] Rx#: [id number] Norepinephrine 4 mg In 83.783 Sodium Chloride 0.9% 250 ml @ 0.03 MCG/KG/MIN 9. 332 mls/hr IV .Q24H [facility] Rx#:[id number] Thiamine 100 mg In Sodium 100 100 Chloride 0.9% 50 ml @ 100 mls/hr IVPB Q24HR [facility] Rx#:[id number] propofoL 1,000 mg In 127.575 178.435 77.85 Empty Bag 1 bag @ 25 MCG/ KG/MIN 13.5 mls/hr IV . [id number] [facility] Rx#:[id number] Tube Feeding 460 576 144 Other 150 90 Output: Urine 1030 960 700 Other: Voiding Method Indwelling Catheter Indwelling Catheter Indwelling Catheter # Bowel Movements 1 ABP, PAP, CO, CI - Last Documented Arterial Blood Pressure 124/63 - Exam Physical Exam: Revealed 57-year-old white male intubated, mechanically ventilated, remains on propofol at very low dose of Versed. Head: Atraumatic, normocephalic. Endotracheal tube and orogastric tube are intact. HEENT:[Neck is supple.] [No neck masses.] [No thyromegaly.] [No JVD.] Chest: [Clear throughout, no crackles, no rhonchi, no wheezes.] Cardiac Exam: [Normal S1 and S2, no S3 gallop, no murmur.] Abdomen: [Soft, nontender, no megaly, no rebound, no guarding, normal bowel sounds.] Extremities: [No clubbing, no edema, no cyanosis.] Neurological Exam: Unable to assess hence I am lowering the dose of propofol and hopefully couldn't assess mental status later today. Psychiatric : Could not assess. . Musculoskeletal: No deformities. Skin: No rashes - Labs CBC & Chem 7: 08/25/22 05:50 08/25/22 05:50 Labs: Abnormal Lab Results - Last 24 Hours (Table) 08/24/22 08/25/22 08/25/22 Range/Units 17:00 05:36 05:50 RBC (4.30-5.90) m/uL Hgb (13.0-17.5) gm/dL Hct (39.0-53.0) % ABG pO2 80 L (83-108) mmHg ABG HCO3 28 H (21-25) mmol/L ABG Total CO2 30 H (19-24) mmol/L Chloride (98-107) mmol/L Creatinine 0.64 L (0.66-1.25) mg/dL Glucose (74-99) mg/dL Calcium (8.4-10.2) mg/dL CSF RBC 83256 H (0-10) u/L CSF Tot Nucleated Cells 160 H* (0-5) u/L 08/25/22 08/25/22 Range/Units 05:50 05:50 RBC 3.78 L (4.30-5.90) m/uL Hgb 11.4 L (13.0-17.5) gm/dL Hct 35.7 L (39.0-53.0) % ABG pO2 (83-108) mmHg ABG HCO3 (21-25) mmol/L ABG Total CO2 (19-24) mmol/L Chloride 113 H (98-107) mmol/L Creatinine 0.63 L (0.66-1.25) mg/dL Glucose 120 H (74-99) mg/dL Calcium 7.4 L (8.4-10.2) mg/dL CSF RBC (0-10) u/L CSF Tot Nucleated Cells (0-5) u/L Microbiology - Last 24 Hours (Table) 08/24/22 17:00 CSF Gram Stain - Preliminary Cerebral Spinal Fluid 08/18/22 08:29 Blood Culture - Final Blood No Growth after 144 hours Assessment and Plan Assessment: Impression: Acute hypoxic and hypercapnic respiratory failure, mostly because the patient was unable to protect his airways upon his initial presentation, patient required intubation for airways protection. And he was encephalopathic with mental status change upon his initial presentation. possible recurrent seizures, however EEGs done did not reflect any seizure activ ity as per neurology on the case. MSSA tracheobronchitis, we will place back on Kefzol and discontinue vancomycin Altered mental status, possibly metabolic encephalopathy, suspect alcohol withdrawal. Severe lactic acidosis on admission, with hypovolemia, resolved. Hypovolemic with hypotension Anion gap metabolic acidosis, resolved. Positive blood cultures for staph epidermidis, felt to be a contamination. History of alcoholism Acute kidney injury with hypovolemia, resolved. History of paroxysmal atrial fibrillation Benign essential hypertension Acute toxic metabolic encephalopathy, possible seizures. Dyslipidemia Recommendation: Spinal fluid results were noted. Lumbosacral spine CT was noted, no evidence of epidural hematoma other results of the spinal fluid are pending Continue ventilatory support, however will assess mental status today on a lower dose of sedation and based on his neurological status, doubt if the patient is ready for weaning Continue enteral feeding/interstitial support Continue IV thiamine. Discontinue vancomycin and start Kefzol instead. Continue to monitor daily labs and address accordingly Overall prognosis remains guarded mostly because of his underlying neurological status. being addressed by neurology on the case. Remains critically ill. Continue GI and DVT prophylaxis. Critical care time is over 30 Time with Patient: Greater than 30
--- NOTE | 2022-08-25 11:12 | P.PN ---
Subjective Progress Note Date: 08/25/22 Patient having versed decreased down to 1. Propofol being weaned. Attempt to assess mental status today. Had Lumbar puncture yesterday at bedside, results reviewed, many RBCs, many WBCs predominantly PMNs. Cx pending. General: intubated, sedated HEENT: normocephalic, atraumatic, no tracheal deviation Respiratory: symmetric chest rise, no cyanosis, ventilator dependent CVS: perfusing all extremities, no distal gangrene, no pitting edema GI: soft, ND : no SPT, no CVAT, alexander is present Neuro: sedated, rigors, moving all extremities, not following commands Assessment/plan: Acute hypoxic and hypercapnic respiratory failure status post intubation -Repeating prolonged EEG is pending read -Discussed with nursing overnight events requiring increase of versed -CXR reviewed today, continues to have left pleural effusion Acute metabolic encephalopathy Hyperammonemia History of alcohol abuse -Continue to wean sedation as able, again on versed and propofol, keppra, ativan PRN for seizures weaning versed as able. -f/u Lumbar Puncture Cx, HSV Shock, likely hypovolemic - resolved High anion gap metabolic acidosis secondary to Severe lactic acidosis - resolved Acute kidney injury - resolved Severe hyperphosphatemia - resolved Severe hypokalemia - resolving Hypomagnesemia -Continue IV fluids -Monitor urine output and renal function, renal ultrasound showed no hydronephrosis -Replete electrolytes per protocol, continue to monitor -Renal following A. fib with RVR status post cardioversion Elevated troponin -Cardiology following Thrombocytopenia, resolved -IV PPI twice a day -Low platelets likely in the setting of chronic alcohol abuse -Gen. surgery following Staph bacteremia -First set of blood cultures positive for staph aureus and epidermidis, likely contaminant. however, sputum culture also showing staph -Patient currently on vancomycin, repeat blood cultures no growth to date DVT ppx: Lovenox Code status: Full code Anticipated discharge place: Pending clinical course Anticipated discharge time: Pending clinical course Objective - Vital Signs Vital signs: Vital Signs Temp 96.8 F L 08/25/22 08:00 Pulse 74 08/25/22 11:00 Resp 23 08/25/22 11:00 BP 104/53 08/25/22 08:00 Pulse Ox 98 08/25/22 11:00 FiO2 35 08/25/22 08:00 Intake & Output 08/24/22 08/25/22 08/25/22 18:59 06:59 18:59 Intake Total 2171.108 2652.998 4136.427 Output Total 1030 960 925 Balance 1141.108 973.252 359.427 Weight 95.8 kg Intake: IV 1200 1148 800 Dextrose 5%-0.45% NaCl 1, 600 650 200 000 ml @ 50 mls/hr IV . Q20H [facility] Rx#:[id number] Vancomycin 1,500 mg In 500 498 500 Sodium Chloride 0.9% 500 ml 500 ml @ 167 mls/hr IVPB Q12H [facility] Rx#: [id number] levETIRAcetam IV 1,000 mg 100 100 In Saline 1 100ml.bag @ 400 mls/hr IVPB Q12HR [facility] Rx#:[id number] Intake, IV Titration 361.108 209.252 202.427 Amount Midazolam HCl 200 mg In 49.75 30.817 10.267 Sodium Chloride 0.9% 60 ml @ 14 MG/HR 7 mls/hr IV .[id number] [facility] Rx#: [id number] Norepinephrine 4 mg In 83.783 Sodium Chloride 0.9% 250 ml @ 0.03 MCG/KG/MIN 9. 332 mls/hr IV .Q24H [facility] Rx#:[id number] Thiamine 100 mg In Sodium 100 100 Chloride 0.9% 50 ml @ 100 mls/hr IVPB Q24HR [facility] Rx#:[id number] propofoL 1,000 mg In 127.575 178.435 92.16 Empty Bag 1 bag @ 25 MCG/ KG/MIN 13.5 mls/hr IV . Q7H25M [facility] Rx#:[id number] Tube Feeding 460 576 192 Other 150 90 Output: Urine 1030 960 925 Other: Voiding Method Indwelling Catheter Indwelling Catheter Indwelling Catheter # Bowel Movements 1 ABP, PAP, CO, CI - Last Documented Arterial Blood Pressure 124/56 - Labs CBC & Chem 7: 08/25/22 05:50 08/25/22 05:50 Labs: Abnormal Lab Results - Last 24 Hours (Table) 08/24/22 08/25/22 08/25/22 Range/Units 17:00 05:36 05:50 RBC (4.30-5.90) m/uL Hgb (13.0-17.5) gm/dL Hct (39.0-53.0) % ABG pO2 80 L (83-108) mmHg ABG HCO3 28 H (21-25) mmol/L ABG Total CO2 30 H (19-24) mmol/L Chloride (98-107) mmol/L Creatinine 0.64 L (0.66-1.25) mg/dL Glucose (74-99) mg/dL Calcium (8.4-10.2) mg/dL CSF RBC 72627 H (0-10) u/L CSF Tot Nucleated Cells 160 H* (0-5) u/L 08/25/22 08/25/22 Range/Units 05:50 05:50 RBC 3.78 L (4.30-5.90) m/uL Hgb 11.4 L (13.0-17.5) gm/dL Hct 35.7 L (39.0-53.0) % ABG pO2 (83-108) mmHg ABG HCO3 (21-25) mmol/L ABG Total CO2 (19-24) mmol/L Chloride 113 H (98-107) mmol/L Creatinine 0.63 L (0.66-1.25) mg/dL Glucose 120 H (74-99) mg/dL Calcium 7.4 L (8.4-10.2) mg/dL CSF RBC (0-10) u/L CSF Tot Nucleated Cells (0-5) u/L Microbiology - Last 24 Hours (Table) 08/24/22 17:00 CSF Gram Stain - Preliminary Cerebral Spinal Fluid 08/18/22 08:29 Blood Culture - Final Blood No Growth after 144 hours
[2022-08-25 11:34] LABS: Glucose,Whole Blood 118 mg/dL (70-110)
[2022-08-25] MEDS: DEXMEDETOMIDINE/0.9% NACL(PMX) 400 MCG in EMPTY BAG 1 BAG IV SCH ×2 (14:20→19:33)
[2022-08-25 18:15] LABS: Glucose,Whole Blood 97 mg/dL (70-110)
--- NOTE | 2022-08-25 22:16 | P.PN ---
Subjective Progress Note Date: 08/25/22 Patient was seen for a follow-up. Patient has not had any more seizure-like spells. Versed has been slowly tapered down, and discontinued at 1:10 PM. Propofol also discontinued at 12:20 PM. Patient has been started on Precedex 0.5, down. He is more waking up, following directions as per exam. Patient significant a generalized weak. Patient admits to having some headache. Patient's daughters has mentioned yesterday that patient has been a very heavy drinker all their lives that very know their father. They believe patient's last drink was on 08/11/2022, whereas he was hospitalized on 08/16/2022. Patient's daughters states that he has history of traumatic brain injury in 2016 or 2017, when was drunk and he fell down stairs suffering from a brain bleed. He was admitted to [facility] in [facility] for a month. He had undergone craniotomy 2, on the left side. Objective - Vital Signs Vital signs: Vital Signs Temp 100.2 F H 08/25/22 16:00 Pulse 101 H 08/25/22 16:00 Resp 22 08/25/22 16:00 BP 104/53 08/25/22 08:00 Pulse Ox 94 L 08/25/22 16:00 FiO2 35 08/25/22 16:00 Intake & Output 08/24/22 08/25/22 08/25/22 18:59 06:59 18:59 Intake Total 2171.108 4783.588 0344.640 Output Total 4846 746 3674 Balance 1141.108 973.252 -736.360 Weight 95.8 kg Intake: IV 1200 1148 1050 Dextrose 5%-0.45% NaCl 1, 600 650 450 000 ml @ 50 mls/hr IV . Q20H [facility] Rx#:[id number] Vancomycin 1,500 mg In 500 498 500 Sodium Chloride 0.9% 500 ml 500 ml @ 167 mls/hr IVPB Q12H [facility] Rx#: [id number] levETIRAcetam IV 1,000 mg 100 100 In Saline 1 100ml.bag @ 400 mls/hr IVPB Q12HR [facility] Rx#:[id number] Intake, IV Titration 361.108 209.252 281.640 Amount Dexmedetomidine/0.9% NaCl 16.726 (Pmx) 400 mcg In Empty Bag 1 bag @ 0.2 MCG/KG/HR 4.79 mls/hr IV .[id number] [facility] Rx#:[id number] Midazolam HCl 200 mg In 49.75 30.817 12.584 Sodium Chloride 0.9% 60 ml @ 14 MG/HR 7 mls/hr IV .[id number] [facility] Rx#: [id number] Norepinephrine 4 mg In 83.783 Sodium Chloride 0.9% 250 ml @ 0.03 MCG/KG/MIN 9. 332 mls/hr IV .Q24H [facility] Rx#:[id number] Thiamine 100 mg In Sodium 100 100 Chloride 0.9% 50 ml @ 100 mls/hr IVPB Q24HR [facility] Rx#:[id number] ceFAZolin 2 gm In Sodium 50 Chloride 0.9% 50 ml @ 100 mls/hr IVPB Q8H [facility] Rx#: [id number] propofoL 1,000 mg In 127.575 178.435 102.33 Empty Bag 1 bag @ 25 MCG/ KG/MIN 13.5 mls/hr IV . Q7H25M [facility] Rx#:[id number] Tube Feeding 460 576 432 Other 150 150 Output: Urine 5503 585 6800 Other: Voiding Method Indwelling Catheter Indwelling Catheter Indwelling Catheter # Bowel Movements 1 ABP, PAP, CO, CI - Last Documented Arterial Blood Pressure 145/71 - Exam Patient is intubated. Off sedation, but still very groggy, encephalopathic. Patient does open his eyes to calling his name. He did nod his head appropriately. Pupils are equal, round and reactive to light. Patient's marketing database analyst was at least 4-bilaterally. Patient flexing his right forearm better than the left. He did not wiggle his toes or feet. Patient did make eye contact, and slightly turned his head towards the examiner. Patient has peripheral edema. - Labs CBC & Chem 7: 08/25/22 05:50 08/25/22 05:50 Labs: Abnormal Lab Results - Last 24 Hours (Table) 08/24/22 08/25/22 08/25/22 Range/Units 17:00 05:36 05:50 RBC (4.30-5.90) m/uL Hgb (13.0-17.5) gm/dL Hct (39.0-53.0) % ABG pO2 80 L (83-108) mmHg ABG HCO3 28 H (21-25) mmol/L ABG Total CO2 30 H (19-24) mmol/L Chloride (98-107) mmol/L Creatinine 0.64 L (0.66-1.25) mg/dL Glucose (74-99) mg/dL POC Glucose (mg/dL) (70-110) mg/dL Calcium (8.4-10.2) mg/dL CSF RBC 61107 H (0-10) u/L CSF Tot Nucleated Cells 160 H* (0-5) u/L 08/25/22 08/25/22 08/25/22 Range/Units 05:50 05:50 11:32 RBC 3.78 L (4.30-5.90) m/uL Hgb 11.4 L (13.0-17.5) gm/dL Hct 35.7 L (39.0-53.0) % ABG pO2 (83-108) mmHg ABG HCO3 (21-25) mmol/L ABG Total CO2 (19-24) mmol/L Chloride 113 H (98-107) mmol/L Creatinine 0.63 L (0.66-1.25) mg/dL Glucose 120 H (74-99) mg/dL POC Glucose (mg/dL) 118 H (70-110) mg/dL Calcium 7.4 L (8.4-10.2) mg/dL CSF RBC (0-10) u/L CSF Tot Nucleated Cells (0-5) u/L Microbiology - Last 24 Hours (Table) 08/24/22 17:00 CSF Gram Stain - Preliminary Cerebral Spinal Fluid Assessment and Plan Assessment: * New onset rhythmic twitching of the shoulders bilaterally and some upper limbs, probably myoclonic jerks, unlikely to be seizures. EEG did not reveal any epileptiform activity. No status epilepticus. * Altered mental status, likely due to toxic metabolic encephalopathy * Patient presented with unresponsiveness, likely due to above. * Possible Alcohol withdrawal * History of alcoholism. 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 * Elevated ammonia, abnormal liver functions, rule out cirrhosis. * Acute kidney injury, now resolved * Status post shock, likely hypovolemic * Atrial fibrillation with RVR, status post cardioversion * Acute respiratory failure, on mechanical ventilation * Elevated troponin * Gram-positive bacteremia, possibly contaminant. Plan: * Patient's sedation has been discontinued. He is waking up, following directions. Still very encephalopathic, generalized weak. Not able to move his lower extremities but very weak upper extremities as well. CT of the lumbar spine showed no evidence of epidural hematoma. Recommend stay off sedation. Patient currently on Precedex. * CSF revealed normal glucose 69, CSF protein 57(12-60), WBC count 160, polynuclear 77%, mononuclear cells 18%, eosinophils 5%. This was a traumatic tap, as the same ratio in the blood as well. No evidence of infection. Patient currently on vancomycin. Await viral cultures. * Patient had a prolonged, 2.5 hour EEG performed 08/23/2022. According to preliminary report from Dr. Lopez, did not reveal any epileptiform activity. Some triphasic waves are seen. No status epilepticus. Official report pending. We will continue Keppra 1000 mg twice a day. Try to wean off propofol, then Versed drip. Patient received Dilantin loading dose last night. Patient's level is 10.9. We will not continue Dilantin, as there is no epileptiform activity. * Patient was given a loading dose of Keppra 1500 mg by sports equipment racker. We will maintain on Keppra 1000 mg IV twice a day. Ativan 1 mg every hour as needed for seizure like activity. Patient probably may be rapidly weaned off Keppra, once extubated, and mental condition stabilized. * Repeat CT head 08/22/2022 revealed previous surgery. Mild atrophy, no acute intracranial process. I personally reviewed CT head, agree with the findings. * CTA reported as negative of the brain. Mild plaque at the carotid artery bifurcation. No evidence of hemodynamic arterial stenosis in the neck. * Initial EEG 08/19/2022 was abnormal due to amplitude asymmetry with relatively higher amplitude activity in the left frontoparietal region due to breach rhythm from previous craniotomy defect. Background slowing of moderate to severe degree, consistent with generalized cerebral dysfunction, as can be seen with toxic metabolic encephalopathy or due to diffuse structural brain abnormality. Clinical correlation is recommended. No epileptiform activity was seen. * B12 2102, folate 12.90, TSH slightly decreased 0.220, with normal free T4 1.37. Possible due to sick euthyroid. * Other medical management as per critical care team, and primary care. * Dr. Elmer Heredia Will resume neurology service in the morning.
[2022-08-26 01:15] LABS: Glucose,Whole Blood 103 mg/dL (70-110)
--- NOTE | 2022-08-26 02:52 | EEG ---
ELECTROENCEPHALOGRAM REPORT TECHNIQUE: This is a report from a prolonged 2.5-hour inpatient digital video EEG performed using the 10/20 international electrode placement system. HISTORY: The patient currently intubated, recent seizures. OTHER MEDICAL HISTORY: Includes prior head injury. CURRENT MEDICATIONS: Propofol, which has recently been decreased prior to the EEG and Versed discontinued prior to the EEG. FINDINGS: RECORDING START TIME: 08/23/2022 at 06:54 a.m. RECORDING END TIME: 08/23/2022 at 09:27 a.m. EVENTS: During this 2.5-hour inpatient video EEG, no clinical or electrographic seizures were recorded. During the course of this recording, numerous events occurred, only a partial listing is provided below. These were not associated with EEG changes. Examples include, but are not limited to 08/23/2022 at 07:49:40 in which there is a sudden brief less than 1 second movement of the legs/thighs inward. A similar brief less than 1 second movement of the thighs inward occurred at . Noting that all of the movements that were recorded/potential events included a sudden jerk, where sudden body movement lasting less than 1 second. A left leg jerk occurred at 08:22:18. A left leg jerk also occurred at 08:50:28. A left leg jerk was noted at 09:22:13. BACKGROUND: Initially, a sustained posterior dominant rhythm was not seen. This EEG demonstrated a burst suppression pattern. An excess of beta frequency activity was noted. This is not epileptiform in nature and may in part be due to medication effect. Initially, this recording demonstrated a modified burst suppression pattern. Later in the recording, background frequencies were seen in the poorly modulated 5 to 6 hertz range. Over the more anterior regions at that point, occasional triphasic waves were seen. ACTIVATION: 1. Hyperventilation: Not performed. 2. Photic stimulation: No driving seen. 3. Sleep: Stages I and II sleep noted. Please note that the majority of this recording was stage II sleep. ABNORMALITIES: 1. Initially, this EEG demonstrated a modified burst suppression pattern. 2. Subsequently that is later into the recording, the periods of suppression declined, background frequencies were seen in the poorly modulated 3 to 4 hertz range. 3. At that time over the more anterior regions, occasional triphasic waves were seen. In addition, diffuse synchronous and asynchronous frontally predominant 3 to 5 hertz slow wave activity was seen. IMPRESSION: Abnormal 2.5-hour video EEG. No definitive seizures were recorded. No definitive epileptiform activity was present. Numerous events were recorded as described in summary as a sudden body jerk or movement lasting less than 1 second. These were not associated with epileptiform activity. Initially, this EEG demonstrated a modified burst suppression pattern. As sedation declined, background frequencies were seen occasionally in the 5 to 6 hertz range with intermixed slower 3 to 4 hertz poorly modulated delta range slowing. During those times over the more anterior regions, diffuse frontally predominant 3 to 5 hertz slow wave activity was seen with occasional triphasic waves. The triphasic waves are not epileptiform in nature. Triphasic waves can be seen in the setting of a metabolic encephalopathy. CONCLUSION: These findings indicate [id number] diffuse cerebral dysfunction, which may in part be due to medication effect. These findings were called to the neurologist taking care of the patient at 3:25 p.m. on 08/23/2022. MMCRISTAL / NICA: [id number] /
[2022-08-26] MEDS: LORazepam 2 MG/ML INJ IV PRN ×3 (04:14→20:59)
[2022-08-26 05:09] LABS: Basophils % (A) 0 %; Eosinophils # (A) 0.3 k/uL (0-0.7); Eosinophils % (A) 3 %; HCT 34.9 % (39.0-53.0); HGB 11.5 gm/dL (13.0-17.5); Lymphocytes # (A) 1.3 k/uL (1.0-4.8); Lymphocytes % (A) 16 %; MCH 30.4 pg (25.0-35.0); MCHC 32.8 g/dL (31.0-37.0); MCV 92.7 fL (80.0-100.0); Mean Platelet Volume 8.4; Monocytes # (A) 0.3 k/uL (0-1.0); Monocytes % (A) 4 %; Neutrophils # (A) 5.9 k/uL (1.3-7.7); Neutrophils % (A) 74 %; Platelet Count 218 k/uL (150-450); RBC 3.77 m/uL (4.30-5.90); RDW 13.5 % (11.5-15.5)
[2022-08-26 05:31] LABS: African American GFR (CKD) >90 (>60 ml/min/1.73 sqM); Anion Gap 2 mmol/L; Blood Urea Nitrogen 13 mg/dL (9-20); Calcium 7.7 mg/dL (8.4-10.2); Carbon Dioxide 28 mmol/L (22-30); Chloride 114 mmol/L (98-107); Glucose 108 mg/dL (74-99); Non-African American GFR(CKD) >90 (>60 ml/min/1.73 sqM); Potassium 3.6 mmol/L (3.5-5.1); Sodium 144 mmol/L (137-145)
[2022-08-26 05:45] LABS: ABG Base Excess 5.4 mmol/L; ABG HCO3 29 mmol/L (21-25); ABG Oxygen Saturation 98.3 % (94-97); ABG PCO2 39 mmHg (35-45); ABG PH 7.48 (7.35-7.45); ABG PO2 99 mmHg (83-108); ABG TCO2 30 mmol/L (19-24); Allen Test Performed? Yes
[2022-08-26] MEDS ORDERED: Potassium Replacement Protocol 1 EACH MISC MISCELLANE PRN (06:15)
[2022-08-26] MEDS: NOREPINEPHRINE 4 MG in SODIUM CHLORIDE 0.9% 250 ML IV SCH (06:25)
[2022-08-26] MEDS: fentaNYL (PF) 2,500 MCG in SODIUM CHLORIDE 0.9% 200 ML IV SCH (06:25)
[2022-08-26] MEDS: MIDAZOLAM HCL 200 MG in SODIUM CHLORIDE 0.9% 60 ML IV SCH (06:26)
[2022-08-26] MEDS: DEXTROSE 5%-0.45% NACL 1,000 ML IV SCH (06:27)
--- NOTE | 2022-08-26 06:39 | XR ---
EXAMINATION TYPE: XR chest 1V portable DATE OF EXAM: 08/26/2022 4:41 AM COMPARISON: Chest radiographs from 08/25/2022. TECHNIQUE: XR chest 1V portable Portable AP radiograph of the chest. CLINICAL INDICATION:Male, 57 years old with history of Follow up-pt on vent.; FINDINGS: Lungs/Pleura: No pleural effusion or focal consolidation. Blunting of the left costophrenic angle. Pulmonary vascularity: Unremarkable. Heart/mediastinum: Cardiomediastinal silhouette is unremarkable. Musculoskeletal: No acute osseous pathology. Partial visualization of cervical fusion hardware. Other findings: None Lines/Tubes: Endotracheal tube with distal tip 5.5 cm above the dany Nasogastric tube with its distal tip and side-port projecting under the diaphragm in stable position. Right internal jugular central venous catheter with distal tip in the right atrium in stable position . IMPRESSION: 1. Decreased small left pleural effusion. 2. Stable support lines and tubes.
[2022-08-26] MEDS ORDERED: POTASSIUM BICARBONATE/CIT AC 20 MEQ TABLET.EFF NG-TUBE SCH (07:00)
[2022-08-26] MEDS ORDERED: FUROSEMIDE 10 MG/ML 4 ML VIAL IV STA (08:22)
[2022-08-26] MEDS: METOPROLOL TARTRATE 25 MG TAB PO SCH ×2 (08:25→20:59)
[2022-08-26] MEDS: ENOXAPARIN 40 MG/0.4 ML SYRINGE SQ SCH (08:25)
[2022-08-26] MEDS: levETIRAcetam IV 1,000 MG in SALINE 1 100ML.BAG IVPB SCH ×2 (08:25→21:33)
[2022-08-26] MEDS: PANTOPRAZOLE 40 MG/10 ML VIAL IVP SCH ×2 (08:25→20:59)
[2022-08-26] MEDS: CHLORHEXIDINE GLUCONATE 15 ML CUP MUCOUS MEM SCH (08:40)
[2022-08-26] MEDS: THIAMINE 100 MG in SODIUM CHLORIDE 0.9% 50 ML IVPB SCH (08:41)
--- NOTE | 2022-08-26 09:55 | P.PN ---
Subjective Progress Note Date: 08/26/22 Principal diagnosis: Respiratory failure. Reevaluated today on , patient remains in the ICU, intubated mechanically ventilated. He is on assist control rate of 18 tidal volume 450 FiO2 35% PEEP of 5 ABG showed a pO2 of 100 pCO2 44 pH of 7.46. His FiO2 was cut down to 35%. Patient continued to have intermittent episodes of seizure-like activities or possibly myoclonic jerks affecting his upper body and upper extremities, with deviation of his eyes with upward gaze. Neurology on the case loaded up with Dilantin yesterday, and he is on Keppra today. Although his EEG according to the neurologist did not show any evidence of seizure activity. Patient to be seen again by neurology today, and decide whether to continue with seizure medications he did receive Dilantin 1 dose yesterday, and he is now on Keppra 1 g twice a day. Early this morning patient had an EEG which is yet to be interpreted by the neurologist. In the meantime the patient is on propofol at 20 mcg/kg/m, Versed 3 mg/h, D5 4 5 at 50 mL per hour and is on vital AF at 30 mL per hour. Unable to cut down on his sedation at this point mostly because of these episodic seizure-like activities or possibly myoclonic jerks. Chest x-ray today showed small left pleural effusion not large enough to consider thoracentesis. His WBC count is 11.5 hemoglobin is 12.1. Basic metabolic profile and renal profile are normal Patient was reevaluated today on 08/24/22, remains in the ICU intubated and mechanically ventilated, he is tidal volume 450 assist-control rate of 18FiO2 is down to 35%, PEEP is 5. ABG showed a pO2 of 110 pCO2 of 44 pH of 7.45, hence no changes were made in the ventilator settings. Neurologically the patient is about the same, continues to have these episodes of myoclonic-like jerks, remains on propofol at 25 mcg/kg/m, remains on Versed at 6 mg/h, patient is supposedly scheduled to have a lumbar puncture done today. Chest x-ray continues to show a small left pleural effusion, otherwise is unremarkable. Labs were all reviewed and they seem to be relatively unremarkable. Again the only reason the patient could not be extubated to mostly because of his neurological status at this point.CBC is relatively normal ABG as noted above. Basic metabolic profile is relatively. Renal profile is normal. Patient is receiving vital AF at 40 mL per hour. Patient remains on GI and DVT prophylaxis Reevaluated today on 08/25/22, patient remains in the ICU, intubated and mechanically ventilated. He is on assist control rate of 18 tidal volume 450 FiO2 35% PEEP of 5. Remains on propofol at 40 mcg/kg/m is also on Versed 1 mg/h. And he is receiving vital AF at 58 mL per hour. No major issues over the last 24 hours, patient seems to be quite sedated with the propofol and Versed. I plan to lower the dose of propofol, and hopefully get to assess mental status today. I could not awaken the patient today to assess mental status, hence I recommended propofol to be cut down significantly and assess mental status RBC the patient not quite ready for any weaning trials. Chest x-ray showed small left pleural effusion, otherwise basically unremarkable. Patient remains on vancomycin for his MSSA, hence I will go back and switch him to 2 g IV piggyback every 8 hours. Labs today showed a relatively normal CBC, normal basic metabolic profile, his spinal fluid results, initial report seems to be unremarkable, however the spinal fluid was obviously bloody and was traumatic. Whether the patient will need a repeat CT of the brain again because of his bloody spinal fluid, that will be decided upon by neurology on the case. Lumbar spine CT showed no evidence of epidural hematoma. Progress note dated 08/26/2022. The patient is seen in the intensive care unit, room 252. He was admitted on August 16 with mental status changes, and acute kidney injury. The patient remains on the mechanical ventilator. Ventilator settings include the volume assist control, rate 18, tidal volume 450, FiO2 35%, and PEEP of 5. Blood gases show pO2 of 99, pCO2 39, pH is 7.48. The patient's on propofol at 25 mcg/kg/m, D5 half-normal saline at 50 mL an hour, and vital AF at 48 mL an hour, which is goal. The patient will get Lasix 40 mg IV push. We will attempt a daily interruption of sedation and a spontaneous breathing trial. The patient appears much more awake and alert today. White count 8, hemoglobin 11.5, hematocrit 34.9, with a normal platelet count. Sodium 144, potassium 3.6, chlorides 114, CO2 28, BUN 13, creatinine 0.65. Blood cultures show staph aureus and staph epidermidis, and sputum samples are positive for Staphylococcus aureus. The patient's chest x-ray shows a small left-sided pleural effusion. Objective - Vital Signs Vital signs: Vital Signs Temp 99.8 F H 08/26/22 08:00 Pulse 80 08/26/22 09:00 Resp 17 08/26/22 09:00 BP 134/75 08/26/22 07:00 Pulse Ox 95 08/26/22 09:00 FiO2 35 08/26/22 08:00 Intake & Output 08/25/22 08/26/22 08/26/22 18:59 06:59 18:59 Intake Total 2116.825 1140.811 346.5 Output Total 2925 1035 550 Balance -808.175 105.811 -203.5 Weight 99 kg Intake: IV 1150 350 210 .9 @ 10 10 Dextrose 5%-0.45% NaCl 1, 550 350 50 000 ml @ 50 mls/hr IV . Q20H [facility] Rx#:[id number] Thiamine 100 mg In Sodium 50 Chloride 0.9% 50 ml @ 100 mls/hr IVPB Q24HR [facility] Rx#:[id number] Vancomycin 1,500 mg In 500 Sodium Chloride 0.9% 500 ml 500 ml @ 167 mls/hr IVPB Q12H [facility] Rx#: [id number] levETIRAcetam IV 1,000 mg 100 100 In Saline 1 100ml.bag @ 400 mls/hr IVPB Q12HR [facility] Rx#:[id number] Intake, IV Titration 288.825 166.811 58.5 Amount Dexmedetomidine/0.9% NaCl 23.911 76.361 (Pmx) 400 mcg In Empty Bag 1 bag @ 0.2 MCG/KG/HR 4.79 mls/hr IV .[id number] [facility] Rx#:[id number] Midazolam HCl 200 mg In 12.584 Sodium Chloride 0.9% 60 ml @ 14 MG/HR 7 mls/hr IV .[id number] [facility] Rx#: [id number] Thiamine 100 mg In Sodium 100 Chloride 0.9% 50 ml @ 100 mls/hr IVPB Q24HR [facility] Rx#:[id number] ceFAZolin 2 gm In Sodium 50 Chloride 0.9% 50 ml @ 100 mls/hr IVPB Q8H [facility] Rx#: [id number] propofoL 1,000 mg In 102.33 90.450 58.5 Empty Bag 1 bag @ 25 MCG/ KG/MIN 13.5 mls/hr IV . [id number] [facility] Rx#:[id number] Tube Feeding 528 624 48 Other 150 30 Output: Urine 2925 1035 550 Other: Voiding Method Indwelling Catheter Indwelling Catheter Indwelling Catheter ABP, PAP, CO, CI - Last Documented Arterial Blood Pressure 135/63 - Exam No acute distress, mildly sedated, with an orally placed endotracheal tube, and NG tube noted transnasally. HEENT examination is grossly unremarkable. Neck supple. Full range of motion. No adenopathy thyromegaly or neck vein distention. Cardiovascular examination reveals regular rhythm rate. S1-S2 normal. No S3 or S4. No discernible murmur noted. Heart rate 80 bpm. Lungs reveal scattered mild rhonchi. No wheezes or crackles. Breath sounds equal bilaterally. Saturations are adequate. Abdomen soft bowel sounds are heard. No masses or tenderness. Extremities are intact. No cyanosis clubbing or edema. Skin is without rash or lesion. Neurologic examination is brief but nonfocal. - Labs CBC & Chem 7: 08/26/22 05:00 08/26/22 05:00 Labs: Abnormal Lab Results - Last 24 Hours (Table) 08/25/22 08/26/22 08/26/22 Range/Units 11:32 05:00 05:00 RBC 3.77 L (4.30-5.90) m/uL Hgb 11.5 L (13.0-17.5) gm/dL Hct 34.9 L (39.0-53.0) % ABG pH (7.35-7.45) ABG HCO3 (21-25) mmol/L ABG Total CO2 (19-24) mmol/L ABG O2 Saturation (94-97) % Chloride 114 H (98-107) mmol/L Creatinine 0.65 L (0.66-1.25) mg/dL Glucose 108 H (74-99) mg/dL POC Glucose (mg/dL) 118 H (70-110) mg/dL Calcium 7.7 L (8.4-10.2) mg/dL 08/26/22 Range/Units 05:39 RBC (4.30-5.90) m/uL Hgb (13.0-17.5) gm/dL Hct (39.0-53.0) % ABG pH 7.48 H (7.35-7.45) ABG HCO3 29 H (21-25) mmol/L ABG Total CO2 30 H (19-24) mmol/L ABG O2 Saturation 98.3 H (94-97) % Chloride (98-107) mmol/L Creatinine (0.66-1.25) mg/dL Glucose (74-99) mg/dL POC Glucose (mg/dL) (70-110) mg/dL Calcium (8.4-10.2) mg/dL Microbiology - Last 24 Hours (Table) 08/24/22 17:00 CSF Gram Stain - Preliminary Cerebral Spinal Fluid CSF Culture - Preliminary Assessment and Plan Assessment: Acute respiratory failure, with intubation on August 16, secondary to patient's inability to protect his airway. Acute mental status changes. Possible recurrent seizures. Staphylococcus aureus bacteremia. Severe lactic acidosis, resolved. Hypovolemic hypotension, resolved. Anion gap metabolic acidosis. History of alcohol abuse. Acute kidney injury. History of paroxysmal atrial fibrillation. Hypertension. Hyperlipidemia. Plan: Plan dated 08/26/2022. The patient will get Lasix 40 mg IV push. The patient was placed on pressure support of 5 and CPAP of 5. The patient's respiratory rate is low, and tidal volumes are excellent. Minute volume is low. The patient will have a cuff leak test, and likely be extubated. Additional recommendations and suggestions are forthcoming. Prognosis is guarded. Labs, x-rays, medications are reviewed. We will continue to follow the patient and make recommendations along the way. Time with Patient: Greater than 30
[2022-08-26 12:05] LABS: Glucose,Whole Blood 100 mg/dL (70-110)
--- NOTE | 2022-08-26 14:12 | P.PN ---
Subjective Progress Note Date: 08/26/22 Patient is off sedation and doing well. Still encephalopathic, but no seizure like activity. Now only on Keppra. Pending viral panel from [facility]. General: intubated, sedated HEENT: normocephalic, atraumatic, no tracheal deviation Respiratory: symmetric chest rise, no cyanosis, ventilator dependent CVS: perfusing all extremities, no distal gangrene, no pitting edema GI: soft, ND : no SPT, no CVAT, alexander is present Neuro: sedated, rigors, moving all extremities, not following commands Assessment/plan: Acute hypoxic and hypercapnic respiratory failure status post intubation -Repeating prolonged EEG is pending read -Discussed with nursing overnight events requiring increase of versed -CXR reviewed today, continues to have left pleural effusion Acute metabolic encephalopathy Hyperammonemia History of alcohol abuse -Continue to wean sedation as able, again on versed and propofol, keppra, ativan PRN for seizures weaning versed as able. -f/u Lumbar Puncture Cx, HSV Shock, likely hypovolemic - resolved High anion gap metabolic acidosis secondary to Severe lactic acidosis - resolved Acute kidney injury - resolved Severe hyperphosphatemia - resolved Severe hypokalemia - resolving Hypomagnesemia -Continue IV fluids -Monitor urine output and renal function, renal ultrasound showed no hydron ephrosis -Replete electrolytes per protocol, continue to monitor -Renal following A. fib with RVR status post cardioversion Elevated troponin -Cardiology following Thrombocytopenia, resolved -IV PPI twice a day -Low platelets likely in the setting of chronic alcohol abuse -Gen. surgery following Staph bacteremia -First set of blood cultures positive for staph aureus and epidermidis, likely contaminant. however, sputum culture also showing staph -Patient currently on vancomycin, repeat blood cultures no growth to date DVT ppx: Lovenox Code status: Full code Anticipated discharge place: Pending clinical course Anticipated discharge time: Pending clinical course Objective - Vital Signs Vital signs: Vital Signs Temp 98.4 F 08/26/22 12:00 Pulse 109 H 08/26/22 14:00 Resp 19 08/26/22 14:00 BP 158/87 08/26/22 14:00 Pulse Ox 93 L 08/26/22 14:00 FiO2 35 08/26/22 08:00 Intake & Output 08/25/22 08/26/22 08/26/22 18:59 06:59 18:59 Intake Total 2116.825 1140.811 686.5 Output Total 2925 1035 5325 Balance -808.175 105.811 -4638.5 Weight 99 kg 99 kg Intake: IV 1150 350 550 .9 @ 10 50 Dextrose 5%-0.45% NaCl 1, 550 350 250 000 ml @ 50 mls/hr IV . Q20H [facility] Rx#:[id number] Thiamine 100 mg In Sodium 100 Chloride 0.9% 50 ml @ 100 mls/hr IVPB Q24HR [facility] Rx#:[id number] Vancomycin 1,500 mg In 500 Sodium Chloride 0.9% 500 ml 500 ml @ 167 mls/hr IVPB Q12H [facility] Rx#: [id number] ceFAZolin 2 gm In Sodium 50 Chloride 0.9% 50 ml @ 100 mls/hr IVPB Q8H [facility] Rx#: [id number] levETIRAcetam IV 1,000 mg 100 100 In Saline 1 100ml.bag @ 400 mls/hr IVPB Q12HR [facility] Rx#:[id number] Intake, IV Titration 288.825 166.811 58.5 Amount Dexmedetomidine/0.9% NaCl 23.911 76.361 (Pmx) 400 mcg In Empty Bag 1 bag @ 0.2 MCG/KG/HR 4.79 mls/hr IV .[id number] [facility] Rx#:[id number] Midazolam HCl 200 mg In 12.584 Sodium Chloride 0.9% 60 ml @ 14 MG/HR 7 mls/hr IV .[id number] [facility] Rx#: [id number] Thiamine 100 mg In Sodium 100 Chloride 0.9% 50 ml @ 100 mls/hr IVPB Q24HR [facility] Rx#:[id number] ceFAZolin 2 gm In Sodium 50 Chloride 0.9% 50 ml @ 100 mls/hr IVPB Q8H [facility] Rx#: [id number] propofoL 1,000 mg In 102.33 90.450 58.5 Empty Bag 1 bag @ 25 MCG/ KG/MIN 13.5 mls/hr IV . Q7H25M [facility] Rx#:[id number] Tube Feeding 528 624 48 Other 150 30 Output: Urine 2925 1035 5325 Other: Voiding Method Indwelling Catheter Indwelling Catheter Indwelling Catheter ABP, PAP, CO, CI - Last Documented Arterial Blood Pressure 140/67 - Labs CBC & Chem 7: 08/26/22 05:00 08/26/22 05:00 Labs: Abnormal Lab Results - Last 24 Hours (Table) 08/26/22 08/26/22 08/26/22 Range/Units 05:00 05:00 05:39 RBC 3.77 L (4.30-5.90) m/uL Hgb 11.5 L (13.0-17.5) gm/dL Hct 34.9 L (39.0-53.0) % ABG pH 7.48 H (7.35-7.45) ABG HCO3 29 H (21-25) mmol/L ABG Total CO2 30 H (19-24) mmol/L ABG O2 Saturation 98.3 H (94-97) % Chloride 114 H (98-107) mmol/L Creatinine 0.65 L (0.66-1.25) mg/dL Glucose 108 H (74-99) mg/dL Calcium 7.7 L (8.4-10.2) mg/dL Microbiology - Last 24 Hours (Table) 08/24/22 17:00 CSF Gram Stain - Preliminary Cerebral Spinal Fluid CSF Culture - Preliminary
[2022-08-26] MEDS: CLEVIDIPINE BUTYRATE 25 MG in EMPTY BAG 1 BAG IV SCH (15:05)
[2022-08-26] MEDS: POTASSIUM CHLORIDE 20 MEQ in WATER FOR INJECTION 1 100ML.BAG IVPB SCH ×2 (16:21→17:55)
[2022-08-26] MEDS: ACETAMINOPHEN IV (For NPO) 1,000 MG in EMPTY BAG 1 BAG IVPB PRN ×2 (16:31→23:00)
[2022-08-26 17:16] LABS: Glucose,Whole Blood 100 mg/dL (70-110)
[2022-08-26] MEDS ORDERED: VANCOMYCIN IV PER PHARMACY 1 EACH MISC MISCELLANE PRN (17:17)
[2022-08-26] MEDS ORDERED: ACYCLOVIR SODIUM 1,000 MG in SODIUM CHLORIDE 0.9% 250 ML IVPB SCH (17:30)
--- NOTE | 2022-08-26 17:53 | P.PN ---
Subjective Progress Note Date: 08/26/22 I am seeing the patient for the first time during this admission. It seems patient was having new onset rhythmic twitching of shoulder and patient was started on Keppra. Patient had 2.5 hour EEG and no seizure or epileptiform discharges but pending final report. He had CSF study and was traumatic tap and was traumatic tap but upon reviewing the CSF study I still felt the patient had elevated nucleated cells in comparison to rbc. I felt the calculated nucleated cells: 120 (1 nucleated cells to 500-1000rbc). Patient had fevers during this stay and today it is as high as 103.4F. Blood culture is staph aureus and sputum is staph aeurus. Today the patient was extubated. I spoke with primary and he felt his mentation has been improving compared to initial presentation. Please refer to Dr. Carr's notes for further details. Objective - Vital Signs Vital signs: Vital Signs Temp 103.4 F H 08/26/22 16:00 Pulse 110 H 08/26/22 17:00 Resp 20 08/26/22 17:00 BP 136/60 08/26/22 17:00 Pulse Ox 94 L 08/26/22 17:00 FiO2 35 08/26/22 08:00 Intake & Output 08/25/22 08/26/22 08/26/22 18:59 06:59 18:59 Intake Total 2116.825 1140.811 806.5 Output Total 2925 1035 6025 Balance -808.175 105.811 -5218.5 Weight 99 kg 99 kg Intake: IV 1150 350 670 .9 @ 10 70 Dextrose 5%-0.45% NaCl 1, 550 350 350 000 ml @ 50 mls/hr IV . Q20H [facility] Rx#:[id number] Thiamine 100 mg In Sodium 100 Chloride 0.9% 50 ml @ 100 mls/hr IVPB Q24HR [facility] Rx#:[id number] Vancomycin 1,500 mg In 500 Sodium Chloride 0.9% 500 ml 500 ml @ 167 mls/hr IVPB Q12H [facility] Rx#: [id number] ceFAZolin 2 gm In Sodium 50 Chloride 0.9% 50 ml @ 100 mls/hr IVPB Q8H [facility] Rx#: [id number] levETIRAcetam IV 1,000 mg 100 100 In Saline 1 100ml.bag @ 400 mls/hr IVPB Q12HR [facility] Rx#:[id number] Intake, IV Titration 288.825 166.811 58.5 Amount Dexmedetomidine/0.9% NaCl 23.911 76.361 (Pmx) 400 mcg In Empty Bag 1 bag @ 0.2 MCG/KG/HR 4.79 mls/hr IV .[id number] [facility] Rx#:[id number] Midazolam HCl 200 mg In 12.584 Sodium Chloride 0.9% 60 ml @ 14 MG/HR 7 mls/hr IV .[id number] [facility] Rx#: [id number] Thiamine 100 mg In Sodium 100 Chloride 0.9% 50 ml @ 100 mls/hr IVPB Q24HR [facility] Rx#:[id number] ceFAZolin 2 gm In Sodium 50 Chloride 0.9% 50 ml @ 100 mls/hr IVPB Q8H [facility] Rx#: [id number] propofoL 1,000 mg In 102.33 90.450 58.5 Empty Bag 1 bag @ 25 MCG/ KG/MIN 13.5 mls/hr IV . Q7H25M [facility] Rx#:[id number] Tube Feeding 528 624 48 Other 150 30 Output: Urine 2925 1035 6025 Other: Voiding Method Indwelling Catheter Indwelling Catheter Indwelling Catheter ABP, PAP, CO, CI - Last Documented Arterial Blood Pressure 103/46 - Exam GENERAL: The patient is lying in bed and is not in acute distress. NEUROLOGICAL: Higher mental function: The patient is moderate to severely drowsy but is brie fly awakeable to voice. He is oriented to self. He was able to name his daughter who is at bedside correctly. He is following few simple commands. Cranial nerves: He is tracking throughout the room. No facial weakness. No dysarthria. Motor: The strength is able to lift bilateral uppers above gravity equally and wiggling his toes symmetrically. Normal tone and bulk. Cerebellum: Unable to assess. Sensation: Unable to assess. SOME OF THE WORK-UP DURING THIS HOSPITAL VISIT CONSISTED OF: * Repeat CT head 08/22/2022 revealed previous surgery. Mild atrophy, no acute intracranial process. I personally reviewed CT head, agree with the findings. * CTA reported as negative of the brain. Mild plaque at the carotid artery bifurcation. No evidence of hemodynamic arterial stenosis in the neck. * Initial EEG 08/19/2022 was abnormal due to amplitude asymmetry with relatively higher amplitude activity in the left frontoparietal region due to breach rhythm from previous craniotomy defect. Background slowing of moderate to severe degree, consistent with generalized cerebral dysfunction, as can be seen with toxic metabolic encephalopathy or due to diffuse structural brain abnormality. Clinical correlation is recommended. No epileptiform activity was seen. * B12 2102, folate 12.90, TSH slightly decreased 0.220, with normal free T4 1.37. Possible due to sick euthyroid. - Labs CBC & Chem 7: 08/26/22 05:00 08/26/22 15:10 Labs: Abnormal Lab Results - Last 24 Hours (Table) 08/26/22 08/26/22 08/26/22 Range/Units 05:00 05:00 05:39 RBC 3.77 L (4.30-5.90) m/uL Hgb 11.5 L (13.0-17.5) gm/dL Hct 34.9 L (39.0-53.0) % ABG pH 7.48 H (7.35-7.45) ABG HCO3 29 H (21-25) mmol/L ABG Total CO2 30 H (19-24) mmol/L ABG O2 Saturation 98.3 H (94-97) % Potassium (3.5-5.1) mmol/L Chloride 114 H (98-107) mmol/L Creatinine 0.65 L (0.66-1.25) mg/dL Glucose 108 H (74-99) mg/dL Calcium 7.7 L (8.4-10.2) mg/dL 08/26/22 Range/Units 15:10 RBC (4.30-5.90) m/uL Hgb (13.0-17.5) gm/dL Hct (39.0-53.0) % ABG pH (7.35-7.45) ABG HCO3 (21-25) mmol/L ABG Total CO2 (19-24) mmol/L ABG O2 Saturation (94-97) % Potassium 3.2 L (3.5-5.1) mmol/L Chloride (98-107) mmol/L Creatinine (0.66-1.25) mg/dL Glucose (74-99) mg/dL Calcium (8.4-10.2) mg/dL Microbiology - Last 24 Hours (Table) 08/24/22 17:00 CSF Gram Stain - Preliminary Cerebral Spinal Fluid CSF Culture - Preliminary Assessment and Plan Assessment: * Confusion with fevers and I felt the CSF study even though was traumatic but the calculated nucleated cells were still elevated (blood culture and sputum is staph but there is concern for contaminant): Appears meningoencephalitis. * New onset rhythmic twitching of the shoulders bilaterally and some upper limbs, probably myoclonic jerks, unlikely to be seizures. EEG did not reveal any epileptiform activity. No status epilepticus. * Patient presented with unresponsiveness, likely due to above. * Possible Alcohol withdrawal * History of alcoholism. 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 * Elevated ammonia, abnormal liver functions, rule out cirrhosis. * Acute kidney injury, now resolved * Status post shock, likely hypovolemic * Atrial fibrillation with RVR, status post cardioversion * Acute respiratory failure, on mechanical ventilation * Elevated troponin * Gram-positive bacteremia, possibly contaminant. Plan: * CSF revealed normal glucose 69, CSF protein 57(12-60), WBC count 160, polynuclear 77%, mononuclear cells 18%, eosinophils 5%. The corrected nucleated cells is 80 cells (for every 1 nucleated cells is 500-1000rbc). 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 I spoke with primary and will start the patient on Ceftriaxone 2gm every 12 hours, Vacomycin and Acyclovir 10mg/kg every 8 hours. Will get I.D. consulted especially with continuing fevers and abnormal CSF study. Await viral culture ordered by Dr. Carr. * Patient had a prolonged, 2.5 hour EEG performed 08/23/2022. According to preliminary report from Dr. Lopez, did not reveal any epileptiform activity. Some triphasic waves are seen. No status epilepticus. Official report pending. We will continue Keppra 1000 mg twice a day. Try to wean off propofol, then Versed drip. Patient received Dilantin loading dose last night. Patient's level is 10.9. We will not continue Dilantin, as there is no epileptiform activity. * Patient was given a loading dose of Keppra 1500 mg by director of conservation. We will maintain on Keppra 1000 mg IV twice a day. Ativan 1 mg every hour as needed for seizure like activity. Will consider weaning Keppra down the line once more awake and responsive. The plan is discussed in detailed with the primary team. Will continue to follow. Time with Patient: Less than 30
[2022-08-26] MEDS ORDERED: VANCOMYCIN 1,750 MG in SODIUM CHLORIDE 0.9% 500 ML 500 ML IVPB ONE (18:00)
[2022-08-26] MEDS: ACYCLOVIR SODIUM 850 MG in SODIUM CHLORIDE 0.9% 250 ML IVPB SCH ×2 (18:37→23:53)
[2022-08-27 00:05] LABS: Glucose,Whole Blood 99 mg/dL (70-110)
[2022-08-27] MEDS: VANCOMYCIN 1,500 MG in SODIUM CHLORIDE 0.9% 500 ML 500 ML IVPB SCH ×3 (00:59→18:28)
[2022-08-27] MEDS: DEXTROSE 5%-0.45% NACL 1,000 ML IV SCH (02:32)
[2022-08-27 04:47] LABS: Basophils % (A) 0 %; Eosinophils # (A) 0.3 k/uL (0-0.7); Eosinophils % (A) 2 %; HCT 32.4 % (39.0-53.0); HGB 10.9 gm/dL (13.0-17.5); Lymphocytes # (A) 1.1 k/uL (1.0-4.8); Lymphocytes % (A) 8 %; MCH 30.7 pg (25.0-35.0); MCHC 33.6 g/dL (31.0-37.0); MCV 91.5 fL (80.0-100.0); Mean Platelet Volume 8.4; Monocytes # (A) 0.5 k/uL (0-1.0); Monocytes % (A) 4 %; Neutrophils # (A) 10.9 k/uL (1.3-7.7); Neutrophils % (A) 84 %; Platelet Count 199 k/uL (150-450); RBC 3.55 m/uL (4.30-5.90); RDW 13.6 % (11.5-15.5)
[2022-08-27 04:58] LABS: African American GFR (CKD) >90 (>60 ml/min/1.73 sqM); Anion Gap 2 mmol/L; Blood Urea Nitrogen 12 mg/dL (9-20); Calcium 7.4 mg/dL (8.4-10.2); Carbon Dioxide 27 mmol/L (22-30); Chloride 110 mmol/L (98-107); Glucose 96 mg/dL (74-99); Non-African American GFR(CKD) >90 (>60 ml/min/1.73 sqM); Potassium 3.4 mmol/L (3.5-5.1); Sodium 139 mmol/L (137-145)
[2022-08-27] MEDS: POTASSIUM CHLORIDE 20 MEQ in WATER FOR INJECTION 1 100ML.BAG IVPB SCH ×2 (05:27→07:11)
[2022-08-27 06:46] LABS: Glucose,Whole Blood 94 mg/dL (70-110)
--- NOTE | 2022-08-27 08:22 | XR ---
EXAMINATION TYPE: XR chest 1V portable DATE OF EXAM: 08/27/2022 Comparison: 08/26/2022 Clinical History: 57-year-old male ICU F/U, PT EXTUBATED Findings: ACDF hardware. Interval extubation and removal of NG tube. Right IJ CVC tip remains in the right atri um. Heart remains borderline enlarged. Interstitial/bony vasculature appears more pronounced. Ongoing trace left pleural effusion. Impression: The interstitium and pulmonary vasculature appears more pronounced. Ongoing trace left pleural effusi on. Correlate to exclude developing pulmonary vascular congestion.
[2022-08-27] MEDS: ACYCLOVIR SODIUM 850 MG in SODIUM CHLORIDE 0.9% 250 ML IVPB SCH ×2 (09:21→16:31)
[2022-08-27] MEDS: ENOXAPARIN 40 MG/0.4 ML SYRINGE SQ SCH (09:21)
[2022-08-27] MEDS: THIAMINE 100 MG in SODIUM CHLORIDE 0.9% 50 ML IVPB SCH (09:22)
[2022-08-27] MEDS: METOPROLOL TARTRATE 25 MG TAB PO SCH ×2 (09:22→20:42)
[2022-08-27] MEDS: PANTOPRAZOLE 40 MG/10 ML VIAL IVP SCH ×2 (09:22→20:42)
[2022-08-27] MEDS: levETIRAcetam IV 1,000 MG in SALINE 1 100ML.BAG IVPB SCH ×2 (09:22→20:42)
--- NOTE | 2022-08-27 10:12 | P.PN ---
Subjective Progress Note Date: 08/27/22 Patient is off sedation and doing well. No longer confused. LP concerning for infx process, started on vanco, ceftriaxone, acyclovir overnight after discussion with neurology. Consulted ID. General: intubated, sedated HEENT: normocephalic, atraumatic, no tracheal deviation Respiratory: symmetric chest rise, no cyanosis, ventilator dependent CVS: perfusing all extremities, no distal gangrene, no pitting edema GI: soft, ND : no SPT, no CVAT, alexander is present Neuro: sedated, rigors, moving all extremities, not following commands Assessment/plan: Acute hypoxic and hypercapnic respiratory failure status post intubation -Repeating prolonged EEG is pending read -Discussed with nursing overnight events requiring increase of versed -CXR reviewed today, continues to have left pleural effusion Acute metabolic encephalopathy Hyperammonemia History of alcohol abuse -Continue to wean sedation as able, again on versed and propofol, keppra, ativan PRN for seizures weaning versed as able. -f/u Lumbar Puncture Cx, HSV Shock, likely hypovolemic - resolved High anion gap metabolic acidosis secondary to Severe lactic acidosis - resolved Acute kidney injury - resolved Severe hyperphosphatemia - resolved Severe hypokalemia - resolving Hypomagnesemia -Continue IV fluids -Monitor urine output and renal function, renal ultrasound showed no hydronephrosis -Replete electrolytes per protocol, continue to monitor -Renal following A. fib with RVR status post cardioversion Elevated troponin -Cardiology following Thrombocytopenia, resolved -IV PPI twice a day -Low platelets likely in the setting of chronic alcohol abuse -Gen. surgery following Staph bacteremia -First set of blood cultures positive for staph aureus and epidermidis, likely contaminant. however, sputum culture also showing staph -Patient currently on vancomycin, repeat blood cultures no growth to date DVT ppx: Lovenox Code status: Full code Anticipated discharge place: Pending clinical course Anticipated discharge time: Pending clinical course Objective - Vital Signs Vital signs: Vital Signs Temp 100.1 F H 08/27/22 08:00 Pulse 82 08/27/22 08:00 Resp 20 08/27/22 08:00 BP 129/79 08/27/22 08:00 Pulse Ox 96 08/27/22 08:00 FiO2 35 08/26/22 08:00 Intake & Output 08/26/22 08/27/22 08/27/22 18:59 06:59 18:59 Intake Total 0732.702 4394 155 Output Total 6525 1750 175 Balance -4552.667 -144 -20 Weight 99 kg 91.5 kg Intake: IV 1830 1606 155 .9 @ 10 80 55 5 ACETAMINOPHEN IV (For NPO 100 100 ) 1,000 mg In Empty Bag 1 bag @ 400 mls/hr IVPB Q6HR PRN Rx#:[id number] Acyclovir Sodium 850 mg 250 250 In Sodium Chloride 0.9% 250 ml @ 270 mls/hr IVPB Q8HR [facility] Rx#:[id number] Dextrose 5%-0.45% NaCl 1, 400 450 50 000 ml @ 50 mls/hr IV . Q20H [facility] Rx#:[id number] Potassium Chloride 20 meq 200 100 100 In Water For Injection 1 100ml.bag @ 50 mls/hr IVPB Q2H [facility] Rx#: [id number] Thiamine 100 mg In Sodium 100 Chloride 0.9% 50 ml @ 100 mls/hr IVPB Q24HR [facility] Rx#:[id number] Vancomycin 1,750 mg In 500 501 Sodium Chloride 0.9% 500 ml 500 ml @ 167 mls/hr IVPB ONCE ONE Rx#: [id number] ceFAZolin 2 gm In Sodium 50 Chloride 0.9% 50 ml @ 100 mls/hr IVPB Q8H [facility] Rx#: [id number] cefTRIAXone 2 gm In 50 50 Sodium Chloride 0.9% 50 ml @ 100 mls/hr IVPB Q12H [facility] Rx#:[id number] levETIRAcetam IV 1,000 mg 100 100 In Saline 1 100ml.bag @ 400 mls/hr IVPB Q12HR [facility] Rx#:[id number] Intake, IV Titration 64.333 Amount Clevidipine Butyrate 25 5.833 mg In Empty Bag 1 bag @ 1 MG/HR 2 mls/hr IV .Q24H [facility] Rx#:[id number] propofoL 1,000 mg In 58.5 Empty Bag 1 bag @ 25 MCG/ KG/MIN 13.5 mls/hr IV . Q7H25M [facility] Rx#:[id number] Tube Feeding 48 Other 30 Output: Urine 6525 1750 175 Other: Voiding Method Indwelling Catheter Indwelling Catheter Indwelling Catheter ABP, PAP, CO, CI - Last Documented Arterial Blood Pressure 144/60 - Labs CBC & Chem 7: 08/27/22 04:35 08/27/22 04:35 Labs: Abnormal Lab Results - Last 24 Hours (Table) 08/26/22 08/27/22 08/27/22 Range/Units 15:10 04:35 04:35 WBC 13.0 H (3.8-10.6) k/uL RBC 3.55 L (4.30-5.90) m/uL Hgb 10.9 L (13.0-17.5) gm/dL Hct 32.4 L (39.0-53.0) % Neutrophils # 10.9 H (1.3-7.7) k/uL Potassium 3.2 L 3.4 L (3.5-5.1) mmol/L Chloride 110 H (98-107) mmol/L Calcium 7.4 L (8.4-10.2) mg/dL Microbiology - Last 24 Hours (Table) 08/24/22 17:00 CSF Gram Stain - Preliminary Cerebral Spinal Fluid CSF Culture - Preliminary
--- NOTE | 2022-08-27 11:00 | P.PN ---
Subjective Progress Note Date: 08/27/22 Principal diagnosis: Respiratory failure. Reevaluated today on , patient remains in the ICU, intubated mechanically ventilated. He is on assist control rate of 18 tidal volume 450 FiO2 35% PEEP of 5 ABG showed a pO2 of 100 pCO2 44 pH of 7.46. His FiO2 was cut down to 35%. Patient continued to have intermittent episodes of seizure-like activities or possibly myoclonic jerks affecting his upper body and upper extremities, with deviation of his eyes with upward gaze. Neurology on the case loaded up with Dilantin yesterday, and he is on Keppra today. Although his EEG according to the neurologist did not show any evidence of seizure activity. Patient to be seen again by neurology today, and decide whether to continue with seizure medications he did receive Dilantin 1 dose yesterday, and he is now on Keppra 1 g twice a day. Early this morning patient had an EEG which is yet to be interpreted by the neurologist. In the meantime the patient is on propofol at 20 mcg/kg/m, Versed 3 mg/h, D5 4 5 at 50 mL per hour and is on vital AF at 30 mL per hour. Unable to cut down on his sedation at this point mostly because of these episodic seizure-like activities or possibly myoclonic jerks. Chest x-ray today showed small left pleural effusion not large enough to consider thoracentesis. His WBC count is 11.5 hemoglobin is 12.1. Basic metabolic profile and renal profile are normal Patient was reevaluated today on 08/24/22, remains in the ICU intubated and mechanically ventilated, he is tidal volume 450 assist-control rate of 18FiO2 is down to 35%, PEEP is 5. ABG showed a pO2 of 110 pCO2 of 44 pH of 7.45, hence no changes were made in the ventilator settings. Neurologically the patient is about the same, continues to have these episodes of myoclonic-like jerks, remains on propofol at 25 mcg/kg/m, remains on Versed at 6 mg/h, patient is supposedly scheduled to have a lumbar puncture done today. Chest x-ray continues to show a small left pleural effusion, otherwise is unremarkable. Labs were all reviewed and they seem to be relatively unremarkable. Again the only reason the patient could not be extubated to mostly because of his neurological status at this point.CBC is relatively normal ABG as noted above. Basic metabolic profile is relatively. Renal profile is normal. Patient is receiving vital AF at 40 mL per hour. Patient remains on GI and DVT prophylaxis Reevaluated today on 08/25/22, patient remains in the ICU, intubated and mechanically ventilated. He is on assist control rate of 18 tidal volume 450 FiO2 35% PEEP of 5. Remains on propofol at 40 mcg/kg/m is also on Versed 1 mg/h. And he is receiving vital AF at 58 mL per hour. No major issues over the last 24 hours, patient seems to be quite sedated with the propofol and Versed. I plan to lower the dose of propofol, and hopefully get to assess mental status today. I could not awaken the patient today to assess mental status, hence I recommended propofol to be cut down significantly and assess mental status RBC the patient not quite ready for any weaning trials. Chest x-ray showed small left pleural effusion, otherwise basically unremarkable. Patient remains on vancomycin for his MSSA, hence I will go back and switch him to 2 g IV piggyback every 8 hours. Labs today showed a relatively normal CBC, normal basic metabolic profile, his spinal fluid results, initial report seems to be unremarkable, however the spinal fluid was obviously bloody and was traumatic. Whether the patient will need a repeat CT of the brain again because of his bloody spinal fluid, that will be decided upon by neurology on the case. Lumbar spine CT showed no evidence of epidural hematoma. Progress note dated 08/26/2022. The patient is seen in the intensive care unit, room 252. He was admitted on August 16 with mental status changes, and acute kidney injury. The patient remains on the mechanical ventilator. Ventilator settings include the volume assist control, rate 18, tidal volume 450, FiO2 35%, and PEEP of 5. Blood gases show pO2 of 99, pCO2 39, pH is 7.48. The patient's on propofol at 25 mcg/kg/m, D5 half-normal saline at 50 mL an hour, and vital AF at 48 mL an hour, which is goal. The patient will get Lasix 40 mg IV push. We will attempt a daily interruption of sedation and a spontaneous breathing trial. The patient appears much more awake and alert today. White count 8, hemoglobin 11.5, hematocrit 34.9, with a normal platelet count. Sodium 144, potassium 3.6, chlorides 114, CO2 28, BUN 13, creatinine 0.65. Blood cultures show staph aureus and staph epidermidis, and sputum samples are positive for Staphylococcus aureus. The patient's chest x-ray shows a small left-sided pleural effusion. Progress note dated 08/27/2022. The patient is again seen in the intensive care unit, room 252. The patient was extubated yesterday. He's currently on 3 L of oxygen. He is getting dextrose with half-normal saline at 50 mL an hour. He is much more awake and alert. He was started on acyclovir, Rocephin, and vancomycin. The Protonix can be converted to by mouth. The hospital service did consult infectious diseases. White count 13, hemoglobin 10.9, hematocrit 32.4, with a normal platelet count. Sodium 139, potassium 3.4, chlorides 110, CO2 27, BUN 12, creatinine 0.67. Blood and sputum samples were positive for Staphylococcus aureus. Chest x-ray shows some mild fluid overload, likely as a result of extubation. Objective - Vital Signs Vital signs: Vital Signs Temp 100.1 F H 08/27/22 08:00 Pulse 84 08/27/22 10:00 Resp 18 08/27/22 10:00 BP 133/73 08/27/22 10:00 Pulse Ox 96 08/27/22 09:00 FiO2 35 08/26/22 08:00 Intake & Output 08/26/22 08/27/22 08/27/22 18:59 06:59 18:59 Intake Total 2911.853 2545 1055 Output Total 6525 1750 625 Balance -4552.667 -144 430 Weight 99 kg 91.5 kg Intake: IV 1830 1606 1055 .9 @ 10 80 55 5 ACETAMINOPHEN IV (For NPO 100 100 ) 1,000 mg In Empty Bag 1 bag @ 400 mls/hr IVPB Q6HR PRN Rx#:[id number] Acyclovir Sodium 850 mg 250 250 250 In Sodium Chloride 0.9% 250 ml @ 270 mls/hr IVPB Q8HR [facility] Rx#:[id number] Dextrose 5%-0.45% NaCl 1, 400 450 50 000 ml @ 50 mls/hr IV . Q20H [facility] Rx#:[id number] Potassium Chloride 20 meq 200 100 100 In Water For Injection 1 100ml.bag @ 50 mls/hr IVPB Q2H [facility] Rx#: [id number] Thiamine 100 mg In Sodium 100 50 Chloride 0.9% 50 ml @ 100 mls/hr IVPB Q24HR [facility] Rx#:[id number] Vancomycin 1,750 mg In 500 501 500 Sodium Chloride 0.9% 500 ml 500 ml @ 167 mls/hr IVPB ONCE ONE Rx#: [id number] ceFAZolin 2 gm In Sodium 50 Chloride 0.9% 50 ml @ 100 mls/hr IVPB Q8H [facility] Rx#: [id number] cefTRIAXone 2 gm In 50 50 Sodium Chloride 0.9% 50 ml @ 100 mls/hr IVPB Q12H [facility] Rx#:[id number] levETIRAcetam IV 1,000 mg 100 100 100 In Saline 1 100ml.bag @ 400 mls/hr IVPB Q12HR [facility] Rx#:[id number] Intake, IV Titration 64.333 Amount Clevidipine Butyrate 25 5.833 mg In Empty Bag 1 bag @ 1 MG/HR 2 mls/hr IV .Q24H [facility] Rx#:[id number] propofoL 1,000 mg In 58.5 Empty Bag 1 bag @ 25 MCG/ KG/MIN 13.5 mls/hr IV . Q7H25M [facility] Rx#:[id number] Tube Feeding 48 Other 30 Output: Urine 6525 1750 625 Other: Voiding Method Indwelling Catheter Indwelling Catheter Indwelling Catheter ABP, PAP, CO, CI - Last Documented Arterial Blood Pressure 143/65 - Exam No acute distress, awake and alert, currently on 3 L of oxygen. His mental status is greatly improved. HEENT examination is grossly unremarkable. Neck supple. Full range of motion. No adenopathy thyromegaly or neck vein distention. Cardiovascular examination reveals regular rhythm rate. S1-S2 normal. No S3 or S4. No discernible murmur noted. Heart rate 84 bpm. Lungs reveal mostly clear breath sounds. Minimal rhonchi. No wheezes or crackles. 3 L saturation is 96%. Abdomen soft bowel sounds are heard. No masses or tenderness. Extremities are intact. No cyanosis clubbing or edema. Skin is without rash or lesion. Neurologic examination is brief but nonfocal. - Labs CBC & Chem 7: 08/27/22 04:35 08/27/22 04:35 Labs: Abnormal Lab Results - Last 24 Hours (Table) 08/26/22 08/27/22 08/27/22 Range/Units 15:10 04:35 04:35 WBC 13.0 H (3.8-10.6) k/uL RBC 3.55 L (4.30-5.90) m/uL Hgb 10.9 L (13.0-17.5) gm/dL Hct 32.4 L (39.0-53.0) % Neutrophils # 10.9 H (1.3-7.7) k/uL Potassium 3.2 L 3.4 L (3.5-5.1) mmol/L Chloride 110 H (98-107) mmol/L Calcium 7.4 L (8.4-10.2) mg/dL Microbiology - Last 24 Hours (Table) 08/24/22 17:00 CSF Gram Stain - Preliminary Cerebral Spinal Fluid CSF Culture - Preliminary Assessment and Plan Assessment: Acute respiratory failure, with intubation on August 16, secondary to patient's inability to protect his airway. The patient was successfully extubated on 08/26/2022. Acute mental status changes. Possible recurrent seizures. Staphylococcus aureus bacteremia. Severe lactic acidosis, resolved. Hypovolemic hypotension, resolved. Anion gap metabolic acidosis. History of alcohol abuse. Acute kidney injury. History of paroxysmal atrial fibrillation. Hypertension. Hyperlipidemia. Plan: Plan dated 08/26/2022. The patient will get Lasix 40 mg IV push. The patient was placed on pressure support of 5 and CPAP of 5. The patient's respiratory rate is low, and tidal volumes are excellent. Minute volume is low. The patient will have a cuff leak test, and likely be extubated. Additional recommendations and suggestions are forthcoming. Prognosis is guarded. Labs, x-rays, medications are reviewed. We will continue to follow the patient and make recommendations along the way. Plan dated 08/27/2022. The patient was successfully extubated August 26. The patient is currently on acyclovir, we will continue to follow the patient and make recommendations along the way. Prognosis is guarded. Labs, x-rays, and medications are all reviewed. Infectious disease financial consultant was asked to see the patient. The patient's Protonix chemically converted to by mouth. Additional recommendations and suggestions are forthcoming. Time with Patient: Greater than 30
--- NOTE | 2022-08-27 12:33 | P.PN ---
Subjective Progress Note Date: 08/27/22 The patient is seen at bedside and according to nurse he is doing better. Patient states he feels better. Denies of any headache, nausea or vomiting. Objective - Vital Signs Vital signs: Vital Signs Temp 99.5 F 08/27/22 12:00 Pulse 82 08/27/22 12:00 Resp 23 08/27/22 12:00 BP 119/72 08/27/22 12:00 Pulse Ox 95 08/27/22 12:00 FiO2 35 08/26/22 08:00 Intake & Output 08/26/22 08/27/22 08/27/22 18:59 06:59 18:59 Intake Total 4171.543 7648 1175 Output Total 6525 1750 1000 Balance -4552.667 -144 175 Weight 99 kg 91.5 kg Intake: IV 1830 1606 1175 .9 @ 10 80 55 25 ACETAMINOPHEN IV (For NPO 100 100 ) 1,000 mg In Empty Bag 1 bag @ 400 mls/hr IVPB Q6HR [facility] Rx#:[id number] Acyclovir Sodium 850 mg 250 250 250 In Sodium Chloride 0.9% 250 ml @ 270 mls/hr IVPB Q8HR [facility] Rx#:[id number] Dextrose 5%-0.45% NaCl 1, 400 450 150 000 ml @ 50 mls/hr IV . Q20H [facility] Rx#:[id number] Potassium Chloride 20 meq 200 100 100 In Water For Injection 1 100ml.bag @ 50 mls/hr IVPB Q2H [facility] Rx#: [id number] Thiamine 100 mg In Sodium 100 50 Chloride 0.9% 50 ml @ 100 mls/hr IVPB Q24HR [facility] Rx#:[id number] Vancomycin 1,750 mg In 500 501 500 Sodium Chloride 0.9% 500 ml 500 ml @ 167 mls/hr IVPB ONCE ONE Rx#: [id number] ceFAZolin 2 gm In Sodium 50 Chloride 0.9% 50 ml @ 100 mls/hr IVPB Q8H [facility] Rx#: [id number] cefTRIAXone 2 gm In 50 50 Sodium Chloride 0.9% 50 ml @ 100 mls/hr IVPB Q12H [facility] Rx#:[id number] levETIRAcetam IV 1,000 mg 100 100 100 In Saline 1 100ml.bag @ 400 mls/hr IVPB Q12HR [facility] Rx#:[id number] Intake, IV Titration 64.333 Amount Clevidipine Butyrate 25 5.833 mg In Empty Bag 1 bag @ 1 MG/HR 2 mls/hr IV .Q24H [facility] Rx#:[id number] propofoL 1,000 mg In 58.5 Empty Bag 1 bag @ 25 MCG/ KG/MIN 13.5 mls/hr IV . Q7H25M [facility] Rx#:[id number] Tube Feeding 48 Other 30 Output: Urine 6525 1750 1000 Other: Voiding Method Indwelling Catheter Indwelling Catheter Indwelling Catheter ABP, PAP, CO, CI - Last Documented Arterial Blood Pressure 164/66 - Exam GENERAL: The patient is lying in bed and is not in acute distress. NEUROLOGICAL: Higher mental function: The patient is awake (more awake today), alert, oriented to self and time. He stated he was in the hospital but did not know name. Patient is following commands. No aphasia and no neglect. Cranial nerves: The pupils are round, equal and reactive to light. Visual bae are full to confrontation throughout. Extraocular movement is intact no nystagmus is noted. The facial strength is normal throughout. Tongue is midline and moved [id number] without any difficulty. No dysarthria is noted. Shoulder shrug is normal bilaterally. Motor: The strength is 5 over 5 throughout. Normal tone and bulk. Cerebellum: Normal finger to nose bilaterally. Sensation: Sensation is normal to touch throughout. SOME OF THE WORK-UP DURING THIS HOSPITAL VISIT CONSISTED OF: * Repeat CT head 08/22/2022 revealed previous surgery. Mild atrophy, no acute intracranial process. I personally reviewed CT head, agree with the findings. * CTA reported as negative of the brain. Mild plaque at the carotid artery bifurcation. No evidence of hemodynamic arterial stenosis in the neck. * Initial EEG 08/19/2022 was abnormal due to amplitude asymmetry with relatively higher amplitude activity in the left frontoparietal region due to breach rhythm from previous craniotomy defect. Background slowing of moderate to severe degree, consistent with generalized cerebral dysfunction, as can be seen with toxic metabolic encephalopathy or due to diffuse structural brain abnormality. Clinical correlation is recommended. No epileptiform activity was seen. * B12 2102, folate 12.90, TSH slightly decreased 0.220, with normal free T4 1.37. Possible due to sick euthyroid. - Labs CBC & Chem 7: 08/27/22 04:35 08/27/22 04:35 Labs: Abnormal Lab Results - Last 24 Hours (Table) 08/26/22 08/27/22 08/27/22 Range/Units 15:10 04:35 04:35 WBC 13.0 H (3.8-10.6) k/uL RBC 3.55 L (4.30-5.90) m/uL Hgb 10.9 L (13.0-17.5) gm/dL Hct 32.4 L (39.0-53.0) % Neutrophils # 10.9 H (1.3-7.7) k/uL Potassium 3.2 L 3.4 L (3.5-5.1) mmol/L Chloride 110 H (98-107) mmol/L Calcium 7.4 L (8.4-10.2) mg/dL Microbiology - Last 24 Hours (Table) 08/24/22 17:00 CSF Gram Stain - Preliminary Cerebral Spinal Fluid CSF Culture - Preliminary Assessment and Plan Assessment: * Confusion with continued fevers and I felt the CSF study even though was traumatic but the calculated nucleated cells were still elevated (blood culture and sputum is staph but there is concern for contaminant): Appears meningoencephalitis. * New onset rhythmic twitching of the shoulders bilaterally and some upper limbs, probably myoclonic jerks, unlikely to be seizures. EEG did not reveal any epileptiform activity. No status epilepticus---confusion has drastically improved * Patient presented with unresponsiveness, likely due to above. * Possible Alcohol withdrawal * History of alcoholism. 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 * Elevated ammonia, abnormal liver functions, rule out cirrhosis. * Acute kidney injury, now resolved * Status post shock, likely hypovolemic * Atrial fibrillation with RVR, status post cardioversion * Acute respiratory failure, on mechanical ventilation * Elevated troponin * Gram-positive bacteremia, possibly contaminant. Plan: * CSF revealed normal glucose 69, CSF protein 57(12-60), WBC count 160, polynuclear 77%, mononuclear cells 18%, eosinophils 5%. The corrected nucleated cells is 80 cells (for every 1 nucleated cells is 500-1000rbc). 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 Continue Ceftriaxone 2gm every 12 hours, Vacomycin and Acyclovir 10mg/kg every 8 hours. Will get I.D. consulted especially with continuing fevers and abnormal CSF study. Await viral culture ordered by Dr. Carr. * I ordered MRI Brain w/ and w/o to rule out any [employer] abscess or mass. * Patient had a prolonged, 2.5 hour EEG performed 08/23/2022. According to preliminary report from Dr. Lopez, did not reveal any epileptiform activity. Some triphasic waves are seen. No status epilepticus. Official report pending. We will continue Keppra 1000 mg twice a day. Try to wean off propofol, then Versed drip. Patient received Dilantin loading dose last night. Patient's level is 10.9. We will not continue Dilantin, as there is no epileptiform activity. * Patient was given a loading dose of Keppra 1500 mg by wax bleacher. We will maintain on Keppra 1000 mg IV twice a day. Ativan 1 mg every hour as needed for seizure like activity. Will consider weaning Keppra down the line once more awake and responsive. The plan is discussed with patient's nurse. Will continue to follow. Time with Patient: Less than 30
[2022-08-27] MEDS: CLEVIDIPINE BUTYRATE 25 MG in EMPTY BAG 1 BAG IV SCH ×3 (14:24→21:30)
[2022-08-27] MEDS: ACETAMINOPHEN TAB 325 MG TAB PO PRN ×2 (15:11→21:07)
[2022-08-27] MEDS: LORazepam 2 MG/ML INJ IV PRN (17:04)
[2022-08-27 17:41] LABS: Glucose,Whole Blood 93 mg/dL (70-110)
--- NOTE | 2022-08-27 22:30 | P.CONS ---
History of Present Illness - Reason for Consult Consult date: 08/27/22 Infectious encephalopathy Requesting physician: Dimitry Mcclendon - Chief Complaint Fever and abnormal CSF x 1 day - History of Present Illness Patient is a 57 year old male with a past medical history significant for alcohol dependence/abuse history of atrial fibrillation patient was brought to the hospital 11 days ago on 08/16/2022 for evaluation of mental status changes patient presented to the hospital and was hypotensive A. fib with RVR patient got intubated and cardioverted, patient on presentation hospital was afebrile and subsequently he did spike a fever of 100.7F on 08/18/2022 and another fever of 103F on 08/20/2022 patient was subsequently afebrile however now is running a fever on a daily basis since 08/26/2022, patient did have a positive blood culture on 08/16/2022 which did grew MSSA staph epi and the patient also grew MSSA from his sputum blood cultures on 08/18/2022 has been negative , patient did have a CT of the chest and abdominal pelvis on admission reported negative for acute abnormality, last chest x-ray on 08/27/2022 this morning which shows pulmonary vascular administration is more pronounced left effusion, patient did have a white count of 17,000 on admission which subsequently normalized however is up to 13,000 today, patient did have normal kidney function CRP was mildly elevated pro calcitonin was 0.61 on 08/21/2022, patient did have a CSF examination obtained on 08/24/2022 which it shows a 40,000 RBC nucleated cells was 160 patient did have a normal CSF glucose and protein patient has been treated with vancomycin since admission to the hospital and he was started on cefazolin on 1:15 which was subsequently canceled yesterday and the patient was started on Rocephin 2 g every 12 along with acyclovir with concern for possible meningitis/encephalitis and infectious disease was consulted last evening after the patient has been in the hospital for 11 days and presented with sepsis. On today's evaluation that is 08/27/2022 patient did have a fever of 101F this morning, patient is currently breathing comfortably on 4 L nasal cannula when asked specifically the patient denies having any headache patient was aware that he was at [facility] patient denies having any URI symptoms no chest pain or shortness of breath he did have some cough unable to bring up any sputum no nausea no vomiting and abdominal pain , patient did have diarrhea for which the patient did have a fecal management system however still for C. diff has not been sent Review of Systems Positive point has been mentioned in the HPI rest of the systems are negative Past Medical History Past Medical History: Hypertension History of Any Multi-Drug Resistant Organisms: None Reported Past Surgical History: Appendectomy, Orthopedic Surgery, Tonsillectomy Additional Past Surgical History / Comment(s): surgery for brain bleed 2018 or 2019 (family unsure) Past Psychological History: No Psychological Hx Reported Past Alcohol Use History: None Reported Past Drug Use History: None Reported - Past Family History family Family Medical History: Cancer Additional Family Medical History / Comment(s): no CAD Medications and Allergies Home Medications Medication Instructions Recorded Confirmed Type Hydrocodone/Acetaminophen [[place] 2 each PO Q6HR PRN #20 tab 01/25/17 08/17/22 Rx 5-325] Metoclopramide [Reglan] 5 mg PO QID PRN 08/17/22 08/17/22 History Metoprolol Succinate (ER) [Toprol 50 mg PO DAILY 08/17/22 08/17/22 History XL] Omeprazole [PriLOSEC] 20 mg PO DAILY 08/17/22 08/17/22 History Potassium Chloride ER [K-Dur 20] 20 meq PO BID 08/17/22 08/17/22 History Pravastatin Sodium [Pravachol] 40 mg PO DAILY 08/17/22 08/17/22 History methocarbamoL [Methocarbamol] 750 mg PO TID PRN 08/17/22 08/17/22 History Allergies Allergy/AdvReac Type Severity Reaction Status Date / Time Penicillins Allergy Unknown Verified 08/17/22 12:59 Childhood Physical Exam Vitals: Vital Signs Temp Pulse Resp BP Pulse Ox 08/27/22 10:00 84 18 133/73 08/27/22 09:00 78 19 125/82 96 08/27/22 08:00 100.1 F H 82 20 129/79 96 08/27/22 07:00 101 F H 83 27 H 121/72 95 08/27/22 06:00 77 17 117/72 95 08/27/22 05:00 75 16 118/66 96 08/27/22 04:00 100.6 F H 78 22 111/62 98 08/27/22 03:00 77 15 109/57 97 08/27/22 02:00 75 28 H 106/60 98 08/27/22 01:00 100.6 F H 75 11 L 101/55 96 08/27/22 00:11 76 18 101/55 95 08/27/22 00:00 77 22 113/66 96 08/26/22 23:00 100.9 F H 77 17 121/66 96 08/26/22 22:00 81 18 109/67 95 08/26/22 21:00 85 19 131/67 97 08/26/22 20:00 100.4 F H 89 19 119/64 96 08/26/22 19:00 90 19 116/55 97 08/26/22 18:00 101.1 F H 96 21 109/56 95 08/26/22 17:00 102.2 F H 110 H 20 136/60 94 L 08/26/22 16:00 103.4 F H 105 H 16 175/87 93 L 08/26/22 15:29 92 L 08/26/22 15:00 103 H 19 147/80 93 L 08/26/22 14:00 109 H 19 158/87 93 L 08/26/22 13:00 118 H 19 158/87 92 L 08/26/22 12:00 98.4 F 93 22 152/80 96 08/26/22 11:00 78 21 93 L Intake and Output 08/26/22 08/27/22 08/27/22 22:59 06:59 14:59 Intake Total 0900.383 2907 1055 Output Total 1850 1100 625 Balance -299.167 241 430 Intake: IV 1545 1341 1055 .9 @ 10 45 40 5 ACETAMINOPHEN IV (For NPO 100 100 ) 1,000 mg In Empty Bag 1 bag @ 400 mls/hr IVPB Q6HR [facility] Rx#:[id number] Acyclovir Sodium 850 mg 250 250 250 In Sodium Chloride 0.9% 250 ml @ 270 mls/hr IVPB Q8HR [facility] Rx#:[id number] Dextrose 5%-0.45% NaCl 1, 300 300 50 000 ml @ 50 mls/hr IV . Q20H [facility] Rx#:[id number] Potassium Chloride 20 meq 200 100 100 In Water For Injection 1 100ml.bag @ 50 mls/hr IVPB Q2H [facility] Rx#: [id number] Thiamine 100 mg In Sodium 50 Chloride 0.9% 50 ml @ 100 mls/hr IVPB Q24HR [facility] Rx#:[id number] Vancomycin 1,750 mg In 500 501 500 Sodium Chloride 0.9% 500 ml 500 ml @ 167 mls/hr IVPB ONCE ONE Rx#: [id number] cefTRIAXone 2 gm In 50 50 Sodium Chloride 0.9% 50 ml @ 100 mls/hr IVPB Q12H [facility] Rx#:[id number] levETIRAcetam IV 1,000 mg 100 100 In Saline 1 100ml.bag @ 400 mls/hr IVPB Q12HR [facility] Rx#:[id number] Intake, IV Titration 5.833 Amount Clevidipine Butyrate 25 5.833 mg In Empty Bag 1 bag @ 1 MG/HR 2 mls/hr IV .Q24H [facility] Rx#:[id number] Output: Urine 1850 1100 625 Other: Voiding Method Indwelling Catheter Indwelling Catheter Indwelling Catheter Weight 91.5 kg ABP, PAP, CO, CI - Last 8 Hours Arterial Blood Pressure 143/65 Arterial Blood Pressure 144/60 Arterial Blood Pressure 131/66 Arterial Blood Pressure 132/51 Arterial Blood Pressure 142/55 Arterial Blood Pressure 137/56 Arterial Blood Pressure 108/47 GENERAL DESCRIPTION: Middle-aged male lying in bed, no distress. No tachypnea or accessory muscle of respiration use. HEENT: Shows Pallor , no scleral icterus. Oral mucous membrane is dry. No pharyngeal erythema or thrush NECK: Trachea central, no thyromegaly. LUNGS: Unlabored breathing. Decreased breath sound the bases. No wheeze or crackle. HEART: S1, S2, regular rate and rhythm. No loud murmur ABDOMEN: Soft, no tenderness , guarding or rigidity, no organomegaly EXTREMITIES: No edema of feet. SKIN: No rash, no masses palpable. NEUROLOGICAL: The patient is awake, alert, oriented x3, mood and affect normal. Results CBC & Chem 7: 08/30/22 05:40 08/30/22 05:40 Labs: Abnormal Lab Results - Last 24 Hours (Table) 08/26/22 08/27/22 08/27/22 Range/Units 15:10 04:35 04:35 WBC 13.0 H (3.8-10.6) k/uL RBC 3.55 L (4.30-5.90) m/uL Hgb 10.9 L (13.0-17.5) gm/dL Hct 32.4 L (39.0-53.0) % Neutrophils # 10.9 H (1.3-7.7) k/uL Potassium 3.2 L 3.4 L (3.5-5.1) mmol/L Chloride 110 H (98-107) mmol/L Calcium 7.4 L (8.4-10.2) mg/dL Microbiology - Last 24 Hours (Table) 08/24/22 17:00 CSF Gram Stain - Preliminary Cerebral Spinal Fluid CSF Culture - Preliminary Assessment and Plan (1) Bacteremia Current Visit: Yes Status: Acute Code(s): R78.81 - BACTEREMIA SNOMED Code(s): 0849702 (2) Fever Current Visit: Yes Status: Acute Code(s): R50.9 - FEVER, UNSPECIFIED SNOMED Code(s): 086842364 Plan: 1patient with abnormal CSF which is mostly a traumatic tap with more than 40,000 RBC white count is still symptomatic elevated however the patient did have a normal glucose and protein the patient currently denies having any headache and he is aware that he is at [facility] all these factors will go against meningitis or encephalitis 2patient now to have a fever in this patient who did have a positive blood as well as sputum culture for MSSA and did have evidence of a left-sided effusion question of possible pulmonary source/empyema, in addition patient also having diarrhea with fecal management system and will need to rule out C. diff colitis to be the reason for his fever and elevated white count 3we will go ahead and discontinue vancomycin and Rocephin, start the patient on cefazolin for his MSSA bacteremia 4-we will check a stool for C. diff and treat if positive 5we will obtain blood culture CRP and pro calcitonin We will follow on clinical condition and cultures to further adjust medication if needed Thank you for this consultation will follow this patient with you Time with Patient: Greater than 30
[2022-08-27 23:46] LABS: Glucose,Whole Blood 95 mg/dL (70-110)
[2022-08-28] MEDS: DEXTROSE 5%-0.45% NACL 1,000 ML IV SCH (00:44)
[2022-08-28] MEDS: ACYCLOVIR SODIUM 850 MG in SODIUM CHLORIDE 0.9% 250 ML IVPB SCH ×2 (00:45→08:36)
[2022-08-28 01:09] LABS: Glucose,Whole Blood 102 mg/dL (70-110)
[2022-08-28] MEDS: ACETAMINOPHEN TAB 325 MG TAB PO PRN ×2 (04:50→21:34)
[2022-08-28 05:05] LABS: Basophils % (A) 1 %; Eosinophils # (A) 0.2 k/uL (0-0.7); Eosinophils % (A) 2 %; HCT 33.4 % (39.0-53.0); HGB 11.1 gm/dL (13.0-17.5); Lymphocytes # (A) 1.3 k/uL (1.0-4.8); Lymphocytes % (A) 14 %; MCH 30.5 pg (25.0-35.0); MCHC 33.3 g/dL (31.0-37.0); MCV 91.5 fL (80.0-100.0); Mean Platelet Volume 8.4; Monocytes # (A) 0.4 k/uL (0-1.0); Monocytes % (A) 4 %; Neutrophils # (A) 7.1 k/uL (1.3-7.7); Neutrophils % (A) 77 %; Platelet Count 204 k/uL (150-450); RBC 3.65 m/uL (4.30-5.90); RDW 13.3 % (11.5-15.5); WBC 9.3 k/uL (3.8-10.6)
[2022-08-28 05:10] LABS: Glucose,Whole Blood 103 mg/dL (70-110)
[2022-08-28 05:24] LABS: ALT 30 U/L (4-49); AST 35 U/L (17-59); African American GFR (CKD) >90 (>60 ml/min/1.73 sqM); Albumin 2.5 g/dL (3.5-5.0); Alkaline Phosphatase 101 U/L (38-126); Anion Gap 4 mmol/L; Blood Urea Nitrogen 9 mg/dL (9-20); Calcium 7.6 mg/dL (8.4-10.2); Carbon Dioxide 26 mmol/L (22-30); Chloride 109 mmol/L (98-107); Glucose 98 mg/dL (74-99); Non-African American GFR(CKD) >90 (>60 ml/min/1.73 sqM); Potassium 3.1 mmol/L (3.5-5.1); Sodium 139 mmol/L (137-145); Total Bilirubin 0.4 mg/dL (0.2-1.3); Total Protein 5.1 g/dL (6.3-8.2)
[2022-08-28 05:38] LABS: C Reactive Protein 12.4 mg/dL (<1.0)
[2022-08-28] MEDS: POTASSIUM CHLORIDE 20 MEQ in WATER FOR INJECTION 1 100ML.BAG IVPB SCH ×2 (05:50→08:35)
[2022-08-28] MEDS: ENOXAPARIN 40 MG/0.4 ML SYRINGE SQ SCH (08:36)
[2022-08-28] MEDS: THIAMINE 100 MG in SODIUM CHLORIDE 0.9% 50 ML IVPB SCH (08:36)
[2022-08-28] MEDS: levETIRAcetam IV 1,000 MG in SALINE 1 100ML.BAG IVPB SCH ×2 (08:37→21:32)
[2022-08-28] MEDS: METOPROLOL TARTRATE 25 MG TAB PO SCH ×2 (08:37→21:33)
[2022-08-28] MEDS: PANTOPRAZOLE 40 MG/10 ML VIAL IVP SCH ×2 (08:37→21:33)
[2022-08-28] MEDS ORDERED: VANCOMYCIN TROUGH DUE 1 EACH MISC MISCELLANE ONE (09:00)
--- NOTE | 2022-08-28 10:48 | P.PN ---
Subjective Progress Note Date: 08/28/22 Principal diagnosis: Respiratory failure. Reevaluated today on , patient remains in the ICU, intubated mechanically ventilated. He is on assist control rate of 18 tidal volume 450 FiO2 35% PEEP of 5 ABG showed a pO2 of 100 pCO2 44 pH of 7.46. His FiO2 was cut down to 35%. Patient continued to have intermittent episodes of seizure-like activities or possibly myoclonic jerks affecting his upper body and upper extremities, with deviation of his eyes with upward gaze. Neurology on the case loaded up with Dilantin yesterday, and he is on Keppra today. Although his EEG according to the neurologist did not show any evidence of seizure activity. Patient to be seen again by neurology today, and decide whether to continue with seizure medications he did receive Dilantin 1 dose yesterday, and he is now on Keppra 1 g twice a day. Early this morning patient had an EEG which is yet to be interpreted by the neurologist. In the meantime the patient is on propofol at 20 mcg/kg/m, Versed 3 mg/h, D5 4 5 at 50 mL per hour and is on vital AF at 30 mL per hour. Unable to cut down on his sedation at this point mostly because of these episodic seizure-like activities or possibly myoclonic jerks. Chest x-ray today showed small left pleural effusion not large enough to consider thoracentesis. His WBC count is 11.5 hemoglobin is 12.1. Basic metabolic profile and renal profile are normal Patient was reevaluated today on 08/24/22, remains in the ICU intubated and mechanically ventilated, he is tidal volume 450 assist-control rate of 18FiO2 is down to 35%, PEEP is 5. ABG showed a pO2 of 110 pCO2 of 44 pH of 7.45, hence no changes were made in the ventilator settings. Neurologically the patient is about the same, continues to have these episodes of myoclonic-like jerks, remains on propofol at 25 mcg/kg/m, remains on Versed at 6 mg/h, patient is supposedly scheduled to have a lumbar puncture done today. Chest x-ray continues to show a small left pleural effusion, otherwise is unremarkable. Labs were all reviewed and they seem to be relatively unremarkable. Again the only reason the patient could not be extubated to mostly because of his neurological status at this point.CBC is relatively normal ABG as noted above. Basic metabolic profile is relatively. Renal profile is normal. Patient is receiving vital AF at 40 mL per hour. Patient remains on GI and DVT prophylaxis Reevaluated today on 08/25/22, patient remains in the ICU, intubated and mechanically ventilated. He is on assist control rate of 18 tidal volume 450 FiO2 35% PEEP of 5. Remains on propofol at 40 mcg/kg/m is also on Versed 1 mg/h. And he is receiving vital AF at 58 mL per hour. No major issues over the last 24 hours, patient seems to be quite sedated with the propofol and Versed. I plan to lower the dose of propofol, and hopefully get to assess mental status today. I could not awaken the patient today to assess mental status, hence I recommended propofol to be cut down significantly and assess mental status RBC the patient not quite ready for any weaning trials. Chest x-ray showed small left pleural effusion, otherwise basically unremarkable. Patient remains on vancomycin for his MSSA, hence I will go back and switch him to 2 g IV piggyback every 8 hours. Labs today showed a relatively normal CBC, normal basic metabolic profile, his spinal fluid results, initial report seems to be unremarkable, however the spinal fluid was obviously bloody and was traumatic. Whether the patient will need a repeat CT of the brain again because of his bloody spinal fluid, that will be decided upon by neurology on the case. Lumbar spine CT showed no evidence of epidural hematoma. Progress note dated 08/26/2022. The patient is seen in the intensive care unit, room 252. He was admitted on August 16 with mental status changes, and acute kidney injury. The patient remains on the mechanical ventilator. Ventilator settings include the volume assist control, rate 18, tidal volume 450, FiO2 35%, and PEEP of 5. Blood gases show pO2 of 99, pCO2 39, pH is 7.48. The patient's on propofol at 25 mcg/kg/m, D5 half-normal saline at 50 mL an hour, and vital AF at 48 mL an hour, which is goal. The patient will get Lasix 40 mg IV push. We will attempt a daily interruption of sedation and a spontaneous breathing trial. The patient appears much more awake and alert today. White count 8, hemoglobin 11.5, hematocrit 34.9, with a normal platelet count. Sodium 144, potassium 3.6, chlorides 114, CO2 28, BUN 13, creatinine 0.65. Blood cultures show staph aureus and staph epidermidis, and sputum samples are positive for Staphylococcus aureus. The patient's chest x-ray shows a small left-sided pleural effusion. Progress note dated 08/27/2022. The patient is again seen in the intensive care unit, room 252. The patient was extubated yesterday. He's currently on 3 L of oxygen. He is getting dextrose with half-normal saline at 50 mL an hour. He is much more awake and alert. He was started on acyclovir, Rocephin, and vancomycin. The Protonix can be converted to by mouth. The hospital service did consult infectious diseases. White count 13, hemoglobin 10.9, hematocrit 32.4, with a normal platelet count. Sodium 139, potassium 3.4, chlorides 110, CO2 27, BUN 12, creatinine 0.67. Blood and sputum samples were positive for Staphylococcus aureus. Chest x-ray shows some mild fluid overload, likely as a result of extubation. Progress note dated 08/28/2022. 57-year-old male again seen in room 252 in the intensive care unit. The patient is doing much better. He is on 3 L. He is fully awake and alert. Half-normal saline at 50 mL an hour. Per infectious diseases, he continues on Ancef and acyclovir. The patient can be transferred to the general medical floor without telemetry. We'll DC his IV, and his arterial line. White count 9.3, hemoglobin 11.1, hematocrit 33.4, and platelet count 204,000. Sodium 139, potassium 3.1, chlorides 109, CO2 26, BUN 9, and creatinine 0.62. Albumin is 2.5. Objective - Vital Signs Vital signs: Vital Signs Temp 98.5 F 08/28/22 04:00 Pulse 76 08/28/22 10:00 Resp 19 08/28/22 10:00 BP 125/83 08/28/22 10:00 Pulse Ox 94 L 08/28/22 10:00 FiO2 35 08/26/22 08:00 Intake & Output 08/27/22 08/28/22 08/28/22 18:59 06:59 18:59 Intake Total 2305.000 1112.734 770 Output Total 2400 2950 700 Balance -95.000 -1837.266 70 Weight 89.2 kg 89.2 kg Intake: IV 2090 960 650 .9 @ 10 90 110 50 Acyclovir Sodium 850 mg 350 250 250 In Sodium Chloride 0.9% 250 ml @ 270 mls/hr IVPB Q8HR [facility] Rx#:[id number] Dextrose 5%-0.45% NaCl 1, 400 400 100 000 ml @ 50 mls/hr IV . Q20H [facility] Rx#:[id number] Potassium Chloride 20 meq 100 100 In Water For Injection 1 100ml.bag @ 50 mls/hr IVPB Q2H [facility] Rx#: [id number] Thiamine 100 mg In Sodium 50 Chloride 0.9% 50 ml @ 100 mls/hr IVPB Q24HR [facility] Rx#:[id number] Vancomycin 1,750 mg In 1000 Sodium Chloride 0.9% 500 ml 500 ml @ 167 mls/hr IVPB ONCE ONE Rx#: [id number] ceFAZolin 2 gm In Sodium 50 Chloride 0.9% 50 ml @ 100 mls/hr IVPB Q8H [facility] Rx#: [id number] cefTRIAXone 2 gm In 100 Sodium Chloride 0.9% 50 ml @ 100 mls/hr IVPB Q12H [facility] Rx#:[id number] levETIRAcetam IV 1,000 mg 100 100 100 In Saline 1 100ml.bag @ 400 mls/hr IVPB Q12HR [facility] Rx#:[id number] Intake, IV Titration 15.000 152.734 Amount Clevidipine Butyrate 25 15.000 52.734 mg In Empty Bag 1 bag @ 1 MG/HR 2 mls/hr IV .Q24H [facility] Rx#:[id number] Potassium Chloride 20 meq 100 In Water For Injection 1 100ml.bag @ 50 mls/hr IVPB Q2H [facility] Rx#: [id number] Oral 200 120 Output: Urine 2400 2950 700 Other: Voiding Method Indwelling Catheter Indwelling Catheter ABP, PAP, CO, CI - Last Documented Arterial Blood Pressure 83/66 - Exam No acute distress, awake and alert, currently on 3 L of oxygen. His mental status is greatly improved. HEENT examination is grossly unremarkable. Neck supple. Full range of motion. No adenopathy thyromegaly or neck vein distention. Cardiovascular examination reveals regular rhythm rate. S1-S2 normal. No S3 or S4. No discernible murmur noted. Heart rate 79 bpm. Lungs reveal mostly clear breath sounds. Minimal rhonchi. No wheezes or crackles. 3 L saturation is 97 %. Abdomen soft bowel sounds are heard. No masses or tenderness. Extremities are intact. No cyanosis clubbing or edema. Skin is without rash or lesion. Neurologic examination is brief but nonfocal. - Labs CBC & Chem 7: 08/28/22 04:30 08/28/22 04:30 Labs: Abnormal Lab Results - Last 24 Hours (Table) 08/27/22 08/28/22 08/28/22 Range/Units 04:35 04:30 04:30 RBC 3.65 L (4.30-5.90) m/uL Hgb 11.1 L (13.0-17.5) gm/dL Hct 33.4 L (39.0-53.0) % Potassium 3.1 L (3.5-5.1) mmol/L Chloride 109 H (98-107) mmol/L Creatinine 0.62 L (0.66-1.25) mg/dL Calcium 7.6 L (8.4-10.2) mg/dL C-Reactive Protein 6.9 H 12.4 H (<1.0) mg/dL Total Protein 5.1 L (6.3-8.2) g/dL Albumin 2.5 L (3.5-5.0) g/dL Microbiology - Last 24 Hours (Table) 08/24/22 17:00 CSF Gram Stain - Preliminary Cerebral Spinal Fluid CSF Culture - Preliminary Assessment and Plan Assessment: Acute respiratory failure, with intubation on August 16, secondary to patient's inability to protect his airway. The patient was successfully extubated on 08/26/2022. Acute mental status changes, much improved. Possible recurrent seizures. Staphylococcus aureus bacteremia. Severe lactic acidosis, resolved. Hypovolemic hypotension, resolved. Anion gap metabolic acidosis. History of alcohol abuse. Acute kidney injury. History of paroxysmal atrial fibrillation. Hypertension. Hyperlipidemia. Plan: Plan dated 08/26/2022. The patient will get Lasix 40 mg IV push. The patient was placed on pressure support of 5 and CPAP of 5. The patient's respiratory rate is low, and tidal volumes are excellent. Minute volume is low. The patient will have a cuff leak test, and likely be extubated. Additional recommendations and suggestions are forthcoming. Prognosis is guarded. Labs, x-rays, medications are reviewed. We will continue to follow the patient and make recommendations along the way. Plan dated 08/27/2022. The patient was successfully extubated August 26. The patient is currently on acyclovir, we will continue to follow the patient and make recommendations along the way. Prognosis is guarded. Labs, x-rays, and medications are all reviewed. Infectious disease gift consultant was asked to see the patient. The patient's Protonix chemically converted to by mouth. Additional recommendations and suggestions are forthcoming. Plan dated 08/28/2022. The patient was successfully extubated on August 26. Over the last 2 days, his neurologic status is greatly improved. The patient could be transferred to the general medical floor without telemetry. We'll DC his IV fluids, and DC his arterial line. He remains on Ancef, and acyclovir. Labs, x-rays, and medications are reviewed. Prognosis is guarded. Time with Patient: Less than 30
[2022-08-28 12:03] LABS: Glucose,Whole Blood 88 mg/dL (70-110)
--- NOTE | 2022-08-28 12:44 | P.PN ---
Subjective Progress Note Date: 08/28/22 The patient is seen at bedside and continues to feel he is doing well. Denies of any headache, focal weakness. Patient continues to have fever with Tmax overnight of 102F. I spoke with the ID physician yesterday at night via phone and he agreed that CSF nucleated cells corrected is still elevated. Objective - Vital Signs Vital signs: Vital Signs Temp 98.5 F 08/28/22 04:00 Pulse 82 08/28/22 12:00 Resp 16 08/28/22 12:00 BP 134/82 08/28/22 12:00 Pulse Ox 94 L 08/28/22 12:00 FiO2 35 08/26/22 08:00 Intake & Output 08/27/22 08/28/22 08/28/22 18:59 06:59 18:59 Intake Total 2305.000 1112.734 790 Output Total 2400 2950 850 Balance -95.000 -1837.266 -60 Weight 89.2 kg 89.2 kg Intake: IV 2090 960 670 .9 @ 10 90 110 70 Acyclovir Sodium 850 mg 350 250 250 In Sodium Chloride 0.9% 250 ml @ 270 mls/hr IVPB Q8HR [facility] Rx#:[id number] Dextrose 5%-0.45% NaCl 1, 400 400 100 000 ml @ 50 mls/hr IV . Q20H [facility] Rx#:[id number] Potassium Chloride 20 meq 100 100 In Water For Injection 1 100ml.bag @ 50 mls/hr IVPB Q2H [facility] Rx#: [id number] Thiamine 100 mg In Sodium 50 Chloride 0.9% 50 ml @ 100 mls/hr IVPB Q24HR [facility] Rx#:[id number] Vancomycin 1,750 mg In 1000 Sodium Chloride 0.9% 500 ml 500 ml @ 167 mls/hr IVPB ONCE ONE Rx#: [id number] ceFAZolin 2 gm In Sodium 50 Chloride 0.9% 50 ml @ 100 mls/hr IVPB Q8H [facility] Rx#: [id number] cefTRIAXone 2 gm In 100 Sodium Chloride 0.9% 50 ml @ 100 mls/hr IVPB Q12H [facility] Rx#:[id number] levETIRAcetam IV 1,000 mg 100 100 100 In Saline 1 100ml.bag @ 400 mls/hr IVPB Q12HR [facility] Rx#:[id number] Intake, IV Titration 15.000 152.734 Amount Clevidipine Butyrate 25 15.000 52.734 mg In Empty Bag 1 bag @ 1 MG/HR 2 mls/hr IV .Q24H [facility] Rx#:[id number] Potassium Chloride 20 meq 100 In Water For Injection 1 100ml.bag @ 50 mls/hr IVPB Q2H [facility] Rx#: [id number] Oral 200 120 Output: Urine 2400 2950 850 Other: Voiding Method Indwelling Catheter Indwelling Catheter Indwelling Catheter ABP, PAP, CO, CI - Last Documented Arterial Blood Pressure 83/66 - Exam GENERAL: The patient is lying in bed and is not in acute distress. NEUROLOGICAL: Higher mental function: The patient is awake,alert, oriented to self and time. He stated he was in the hospital but did not know name. Patient is following commands. No aphasia and no neglect. Cranial nerves: The pupils are round, equal and reactive to light. Visual bae are full to confrontation throughout. Extraocular movement is intact no nystagmus is noted. The facial strength is normal throughout. Tongue is midline and moved [id number] without any difficulty. No dysarthria is noted. Shoulder shrug is normal bilaterally. Motor: The strength is 5 over 5 throughout. Normal tone and bulk. Cerebellum: Normal finger to nose bilaterally. Sensation: Sensation is normal to touch throughout. SOME OF THE WORK-UP DURING THIS HOSPITAL VISIT CONSISTED OF: * Repeat CT head 08/22/2022 revealed previous surgery. Mild atrophy, no acute intracranial process. I personally reviewed CT head, agree with the findings. * CTA reported as negative of the brain. Mild plaque at the carotid artery b ifurcation. No evidence of hemodynamic arterial stenosis in the neck. * Initial EEG 08/19/2022 was abnormal due to amplitude asymmetry with relatively higher amplitude activity in the left frontoparietal region due to breach rhythm from previous craniotomy defect. Background slowing of moderate to severe degree, consistent with generalized cerebral dysfunction, as can be seen with toxic metabolic encephalopathy or due to diffuse structural brain abnormality. Clinical correlation is recommended. No epileptiform activity was seen. * B12 2102, folate 12.90, TSH slightly decreased 0.220, with normal free T4 1.37. Possible due to sick euthyroid. - Labs CBC & Chem 7: 08/28/22 04:30 08/28/22 04:30 Labs: Abnormal Lab Results - Last 24 Hours (Table) 08/27/22 08/28/22 08/28/22 Range/Units 04:35 04:30 04:30 RBC 3.65 L (4.30-5.90) m/uL Hgb 11.1 L (13.0-17.5) gm/dL Hct 33.4 L (39.0-53.0) % Potassium 3.1 L (3.5-5.1) mmol/L Chloride 109 H (98-107) mmol/L Creatinine 0.62 L (0.66-1.25) mg/dL Calcium 7.6 L (8.4-10.2) mg/dL C-Reactive Protein 6.9 H 12.4 H (<1.0) mg/dL Total Protein 5.1 L (6.3-8.2) g/dL Albumin 2.5 L (3.5-5.0) g/dL Microbiology - Last 24 Hours (Table) 08/24/22 17:00 CSF Gram Stain - Preliminary Cerebral Spinal Fluid CSF Culture - Preliminary Assessment and Plan Assessment: * Confusion with continued fevers and I felt the CSF study even though was t raumatic but the calculated nucleated cells were still elevated concerning for meningoencephalitis (blood culture and sputum is staph but there is concern for c?ontaminant) * New onset rhythmic twitching of the shoulders bilaterally and some upper limbs, probably myoclonic jerks, unlikely to be seizures. EEG did not reveal any epileptiform activity. No status epilepticus---confusion has drastically improved * Patient presented with unresponsiveness, likely due to above. * Possible Alcohol withdrawal * History of alcoholism. * History of traumatic brain injury with subdural hematoma, status post c raniotomy in 2016 [place] 2017. * Elevated ammonia, abnormal liver functions, rule out cirrhosis. * Acute kidney injury, now resolved * Status post shock, likely hypovolemic * Atrial fibrillation with RVR, status post cardioversion * Acute respiratory failure, on mechanical ventilation * Elevated troponin * Gram-positive bacteremia, possibly contaminant. Plan: * CSF revealed normal glucose 69, CSF protein 57(12-60), WBC count 160, polynuclear 77%, mononuclear cells 18%, eosinophils 5%. The corrected nucleated cells is 80 cells (for every 1 nucleated cells is 500-1000rbc). 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 Continue Ceftriaxone 2gm ev rodolfo 12 hours, Vacomycin and Acyclovir 10mg/kg every 8 hours but will defer modification of medication to I.D. team. I spoken with I.D. and they agree that corrected nucleated is elevated. They d/c ceftriaxone and place on cefazolin 2gm Q8 hours and D/C Vancomycin. No viruses detected in CSF. 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 * Patient had a prolonged, 2.5 hour EEG performed 08/23/2022. According to preliminary report from Dr. Lopez, did not reveal any epileptiform activity. Some triphasic waves are seen. No status epilepticus. Official report pending. We will continue Keppra 1000 mg twice a day. Try to wean off propofol, then Versed drip. Patient received Dilantin loading dose last night. Patient's level is 10.9. We will not continue Dilantin, as there is no epileptiform activity. * Patient was given a loading dose of Keppra 1500 mg by appraisal specialist. We will maintain on Keppra 1000 mg IV twice a day. Ativan 1 mg every hour as needed for seizure like activity. Will consider weaning Keppra down the line after obtaining back result of MRI Brain. The plan is discussed with primary team and his nurse. Will continue to follow. Time with Patient: Less than 30
--- NOTE | 2022-08-28 13:50 | P.PN ---
Subjective Progress Note Date: 08/28/22 Principal diagnosis: Fever and bacteremia Patient is a 57 year old male with a past medical history significant for alcohol dependence/abuse history of atrial fibrillation patient was brought to the hospital on 08/16/2022 for evaluation of mental status changes patient presented to the hospital and was hypotensive A. fib with RVR patient got intubated and cardioverted, patient did have evidence of MSSA bacteremia sputum was also positive for the same pathogen subsequently has been running a fever did have a repeat which was traumatic Elevated white count but glucose protein normal. on today's evaluation that is 08/28/2022, the patient denies having any fever or any chills he is breathing comfortably on room air patient denies any headache no chest pain shortness of breath occasional cough no abdominal pain, no worsening diarrhea reported by the nursing staff Objective - Vital Signs Vital signs: Vital Signs Temp 98.5 F 08/28/22 04:00 Pulse 76 08/28/22 10:00 Resp 19 08/28/22 10:00 BP 125/83 08/28/22 10:00 Pulse Ox 94 L 08/28/22 10:00 FiO2 35 08/26/22 08:00 Intake & Output 08/27/22 08/28/22 08/28/22 18:59 06:59 18:59 Intake Total 2305.000 1112.734 770 Output Total 2400 2950 700 Balance -95.000 -1837.266 70 Weight 89.2 kg 89.2 kg Intake: IV 2090 960 650 .9 @ 10 90 110 50 Acyclovir Sodium 850 mg 350 250 250 In Sodium Chloride 0.9% 250 ml @ 270 mls/hr IVPB Q8HR [facility] Rx#:[id number] Dextrose 5%-0.45% NaCl 1, 400 400 100 000 ml @ 50 mls/hr IV . Q20H [facility] Rx#:[id number] Potassium Chloride 20 meq 100 100 In Water For Injection 1 100ml.bag @ 50 mls/hr IVPB Q2H [facility] Rx#: [id number] Thiamine 100 mg In Sodium 50 Chloride 0.9% 50 ml @ 100 mls/hr IVPB Q24HR [facility] Rx#:[id number] Vancomycin 1,750 mg In 1000 Sodium Chloride 0.9% 500 ml 500 ml @ 167 mls/hr IVPB ONCE ONE Rx#: [id number] ceFAZolin 2 gm In Sodium 50 Chloride 0.9% 50 ml @ 100 mls/hr IVPB Q8H [facility] Rx#: [id number] cefTRIAXone 2 gm In 100 Sodium Chloride 0.9% 50 ml @ 100 mls/hr IVPB Q12H [facility] Rx#:[id number] levETIRAcetam IV 1,000 mg 100 100 100 In Saline 1 100ml.bag @ 400 mls/hr IVPB Q12HR [facility] Rx#:[id number] Intake, IV Titration 15.000 152.734 Amount Clevidipine Butyrate 25 15.000 52.734 mg In Empty Bag 1 bag @ 1 MG/HR 2 mls/hr IV .Q24H [facility] Rx#:[id number] Potassium Chloride 20 meq 100 In Water For Injection 1 100ml.bag @ 50 mls/hr IVPB Q2H [facility] Rx#: [id number] Oral 200 120 Output: Urine 2400 2950 700 Other: Voiding Method Indwelling Catheter Indwelling Catheter ABP, PAP, CO, CI - Last Documented Arterial Blood Pressure 83/66 - Exam GENERAL DESCRIPTION: A middle-aged male lying in bed in no distress RESPIRATORY SYSTEM: Unlabored breathing , decreased breath sounds at bases HEART: S1 S2 regular rate and rhythm , ABDOMEN: Soft , no tenderness EXTREMITIES: No edema feet - Labs CBC & Chem 7: 08/28/22 04:30 08/28/22 04:30 Labs: Abnormal Lab Results - Last 24 Hours (Table) 08/27/22 08/28/22 08/28/22 Range/Units 04:35 04:30 04:30 RBC 3.65 L (4.30-5.90) m/uL Hgb 11.1 L (13.0-17.5) gm/dL Hct 33.4 L (39.0-53.0) % Potassium 3.1 L (3.5-5.1) mmol/L Chloride 109 H (98-107) mmol/L Creatinine 0.62 L (0.66-1.25) mg/dL Calcium 7.6 L (8.4-10.2) mg/dL C-Reactive Protein 6.9 H 12.4 H (<1.0) mg/dL Total Protein 5.1 L (6.3-8.2) g/dL Albumin 2.5 L (3.5-5.0) g/dL Microbiology - Last 24 Hours (Table) 08/24/22 17:00 CSF Gram Stain - Preliminary Cerebral Spinal Fluid CSF Culture - Preliminary Assessment and Plan (1) Bacteremia Current Visit: Yes Status: Acute Code(s): R78.81 - BACTEREMIA SNOMED Code(s): 1713515 (2) Fever Current Visit: Yes Status: Acute Code(s): R50.9 - FEVER, UNSPECIFIED SNOMED Code(s): 397176793 Plan: 1patient with abnormal CSF which is mostly a traumatic tap with more than 40,000 RBC white count is still symptomatic elevated however the patient did have a normal glucose and protein the patient currently denies having any headache and he is aware that he is at [facility] all these factors will go against meningitis or encephalitis 2patient now to have a fever in this patient who did have a positive blood as well as sputum culture for MSSA and did have evidence of a left-sided effusion question of possible pulmonary source/empyema, in addition patient also having diarrhea with fecal management system , stool for C. diff negative 3patient to continue with cefazolin for his MSSA bacteremia and monitor clinical course closely Time with Patient: Less than 30
--- NOTE | 2022-08-28 14:27 | P.PN ---
Subjective Progress Note Date: 08/28/22 Patient is a 57-year-old male with history of alcohol dependence/abuse, atrial fibrillation who presented with altered mentation and possible code stroke. On arrival, patient was hemodynamically unstable, in A. fib with RVR, he was intubated and cardioverted to normal sinus rhythm. CT had showed no acute process, interventional neurology carbon brush maker did not recommend to give alteplase. Reportedly, patient has been binge drinking, his last drink was on August 11. Per family patient was vomiting prior to becoming unresponsive. His initial labs were consistent with severe dehydration, pH of 7.13, potassium 2.7, creatinine of 3.66, lactic acid of 12.4, mild transaminitis, mild elevated tropo raza, urine tox positive for benzos and marijuana. He was admitted There was also concern for possible GI bleed, patient on IV Protonix, surgery following a hemoglobin stable. Nephrology and ICU also following. LP with traumatic tap, patient was started on vanco and rocephin and ID was consulted. Patient was extubated on 08/26/22. Sensorium has cleared. Imaging: Head CT 08/16/22: mild cerebral atrophy CT angio head and neck 08/16/22: negatvive CT chest/abd/pelvis 08/16/22: no significant abnormality US abd/bladder 08/17/22: no hydro EEG 08/19/22: abnormal due to asymetry and background slowing Head CT 08/21/22: prior surgery, mild atrophy EEG 08/22/22: abnormal due to asymmery and sporadic sharp waves Lumbar spine CT 08/25/22: Hypertrophic degenerative changes in the lumbar spine EEG 2.5 hr 08/25/22: Mod-severe diffuse cerebral dysfunction Procedures: Art and central line 08/21/22 LP 08/25/22 Patient seen and examined at bedside. He has no complaints currently. He denies any pain. No chest pain or shortness of breath. General: nontoxic, no distress, appears at stated age Derm: warm, dry Head: atraumatic, normocephalic, symmetric Eyes: EOMI, no lid lag, anicteric sclera Mouth: no lip lesion, mucus membranes moist Cardiovascular: S1S2 reg, no murmur, positive posterior tibial pulse bilateral, Lungs: CTA bilateral, no rhonchi, no rales , no accessory muscle use Abdominal: soft, nontender to palpation, no guarding, no appreciable organomegaly Ext: no gross muscle atrophy, no edema, no contractures Neuro: CN II-XI grossly intact, no focal neuro deficits Psych: Alert, oriented to person, time, and thinks he is at [facility] but then reorients to [place] appropriate affect Assessment/plan: 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 however, sputum culture also showing staph -Patient currently on cefazolin, repeat blood cultures no growth to date - cefazloin 08/21, 08/25-, 08/28 - Vanco 08/17, 08/18. 08/21-08/27 - rocephin 08/26, 08/27 Hypokalemia - replace and recheck in AM A. fib with RVR status post cardioversion preformed in the ED Elevated troponin due to deman ischemic -Cardiology signed off , no recurrence of A fib this hospital stay. - D/C tele - consider outpatient follow-up - CHADSVASC 1, ASA recommended Severe Protein calorie malnutrition - dietitian recs - encourage oral intake Resolved: Acute hypoxic and hypercapnic respiratory failure status post intubation Shock, hypovolemic High anion gap metabolic acidosis secondary to Severe lactic acidosis Acute kidney injury Severe hyperphosphatemia Severe hypokalemia GI bleed Hypomagnesemia Thrombocytopenia Transaminitis, resolved Hx: TBI, craniotomy ETOH dependency HTN HLD DVT prophylaxis: Lovenox Discussed with: Anticipated discharge: pending clinical course Anticipated discharge place:pending clinical course A total of minutes was spent on the care of this complex patient more than 50% of the time was spent in counseling and care coordination. Active Medications Generic Name Dose Route Start Last Admin Trade Name Freq PRN Reason Stop Dose Admin Acetaminophen 650 mg 08/27/22 15:06 08/28/22 04:50 Acetaminophen Tab 325 Mg Tab PO 650 mg Q6HR PRN Administration Fever and/ or Pain Enoxaparin Sodium 40 mg 08/17/22 09:00 08/28/22 08:36 Enoxaparin 40 Mg/0.4 Ml Syringe SQ 40 mg DAILY [facility] Administration Thiamine HCl 100 mg/ Sodium 51 mls @ 100 mls/hr 08/17/22 09:00 08/28/22 08:36 Chloride IVPB 100 mls/hr Q24HR [facility] Administration Levetiracetam 1,000 mg/ IV 100 mls @ 400 mls/hr 08/22/22 21:00 08/28/22 08:37 Solution IVPB 400 mls/hr Q12HR [facility] Administration Acyclovir Sodium 850 mg/ 267 mls @ 270 mls/hr 08/26/22 18:30 08/28/22 08:36 Sodium Chloride IVPB 270 mls/hr Q8HR [facility] Administration Protocol Cefazolin Sodium 2 gm/ Sodium 50 mls @ 100 mls/hr 08/28/22 00:00 08/28/22 08:36 Chloride IVPB 100 mls/hr Q8HR [facility] Administration Protocol Metoprolol Tartrate 25 mg 08/18/22 10:45 08/28/22 08:37 Metoprolol Tartrate 25 Mg Tab PO 25 mg BID [facility] Administration Miscellaneous Information 1 each 08/20/22 08:12 Magnesium Replacement Protocol 1 Each Misc MISCELLANE DAILY PRN Per Protocol Protocol Miscellaneous Information 1 each 08/24/22 07:22 Potassium Replacement Protocol 1 Each Misc MISCELLANE DAILY PRN Per Protocol Protocol Naloxone HCl 0.2 mg 08/16/22 23:41 Naloxone 0.4 Mg/Ml 1 Ml Vial IV Q2M PRN Opioid Reversal Pantoprazole Sodium 40 mg 08/17/22 09:30 08/28/22 08:37 Pantoprazole 40 Mg/10 Ml Vial IVP 40 mg BID [facility] Administration Objective - Vital Signs Vital signs: Vital Signs Temp 98.5 F 08/28/22 04:00 Pulse 78 08/28/22 07:00 Resp 19 08/28/22 07:00 BP 114/68 08/28/22 07:00 Pulse Ox 95 08/28/22 07:31 FiO2 35 08/26/22 08:00 Intake & Output 08/27/22 08/28/22 08/28/22 18:59 06:59 18:59 Intake Total 2305.000 1112.734 10 Output Total 2400 2950 125 Balance -95.000 -1837.266 -115 Weight 89.2 kg Intake: IV 2090 960 10 .9 @ 10 90 110 10 Acyclovir Sodium 850 mg 350 250 In Sodium Chloride 0.9% 250 ml @ 270 mls/hr IVPB Q8HR [facility] Rx#:[id number] Dextrose 5%-0.45% NaCl 1, 400 400 000 ml @ 50 mls/hr IV . Q20H [facility] Rx#:[id number] Potassium Chloride 20 meq 100 In Water For Injection 1 100ml.bag @ 50 mls/hr IVPB Q2H [facility] Rx#: [id number] Thiamine 100 mg In Sodium 50 Chloride 0.9% 50 ml @ 100 mls/hr IVPB Q24HR [facility] Rx#:[id number] Vancomycin 1,750 mg In 1000 Sodium Chloride 0.9% 500 ml 500 ml @ 167 mls/hr IVPB ONCE ONE Rx#: [id number] cefTRIAXone 2 gm In 100 Sodium Chloride 0.9% 50 ml @ 100 mls/hr IVPB Q12H [facility] Rx#:[id number] levETIRAcetam IV 1,000 mg 100 100 In Saline 1 100ml.bag @ 400 mls/hr IVPB Q12HR [facility] Rx#:[id number] Intake, IV Titration 15.000 152.734 Amount Clevidipine Butyrate 25 15.000 52.734 mg In Empty Bag 1 bag @ 1 MG/HR 2 mls/hr IV .Q24H [facility] Rx#:[id number] Potassium Chloride 20 meq 100 In Water For Injection 1 100ml.bag @ 50 mls/hr IVPB Q2H [facility] Rx#: [id number] Oral 200 Output: Urine 2400 2950 125 Other: Voiding Method Indwelling Catheter Indwelling Catheter ABP, PAP, CO, CI - Last Documented Arterial Blood Pressure 147/69 - Labs CBC & Chem 7: 08/28/22 04:30 08/28/22 04:30 Labs: Abnormal Lab Results - Last 24 Hours (Table) 08/27/22 08/28/22 08/28/22 Range/Units 04:35 04:30 04:30 RBC 3.65 L (4.30-5.90) m/uL Hgb 11.1 L (13.0-17.5) gm/dL Hct 33.4 L (39.0-53.0) % Potassium 3.1 L (3.5-5.1) mmol/L Chloride 109 H (98-107) mmol/L Creatinine 0.62 L (0.66-1.25) mg/dL Calcium 7.6 L (8.4-10.2) mg/dL C-Reactive Protein 6.9 H 12.4 H (<1.0) mg/dL Total Protein 5.1 L (6.3-8.2) g/dL Albumin 2.5 L (3.5-5.0) g/dL Microbiology - Last 24 Hours (Table) 08/24/22 17:00 CSF Gram Stain - Preliminary Cerebral Spinal Fluid CSF Culture - Preliminary
[2022-08-28 17:12] LABS: Glucose,Whole Blood 87 mg/dL (70-110)
[2022-08-28] MEDS: QUEtiapine 50 MG TAB PO SCH (18:35)
--- NOTE | 2022-08-28 18:43 | MR ---
EXAMINATION TYPE: MR brain wo/w con DATE OF EXAM: 08/28/2022 COMPARISON: None HISTORY: Brain surgery. Confusion. CONTRAST: Standard multiplanar, multisequence MRI departmental protocol images were obtained without contrast a nd with 9 mL intravenous gadolinium contrast. On the T2 and FLAIR images there is patchy increased signal in the white matter. These are somewhat peripheral at the eng-white matter junction. Total number of lesions is more than 25 and these measu re up to 1 cm. The brainstem is intact. Cerebellum is intact the diffusion images show no evidence of an acute infarct. There is some thinning of the corpus callosum. Contrast images show normal enhance ment of the venous sinuses. No pathologic intracranial enhancement. No evidence of orbital mass. Ther e is apparent old left temporal parietal craniotomy defect. IMPRESSION: Numerous white matter foci that are nonspecific and could relate to demyelinating disease or microvas cular ischemia. No evidence of an acute cortical infarct. No evidence of intracranial mass.
--- NOTE | 2022-08-29 05:51 | P.CONS ---
History of Present Illness - Chief Complaint Toxic encephalopathy - History of Present Illness I had the opportunity to see patient for inpatient rehab consultation. Patient admitted to Dr. Cote August 16 with mental status change, possible stroke with a transfer for with RVR, history of nausea and emesis and alcohol abuse. Seen by Dr. Nesbitt for ICU and ventilator care. Seen by Dr. Rocha for acute kidney injury, notes ATN. Seen by Dr. king for upper GI bleed, follow medically. Also seen by cardiology. Diagnostic tests angiogram CT with plaques only. CT chest abdomen and pelvis demonstrates thoracolumbar mild spondylitic change only. Abdominal ultrasound negative for hydronephrosis right and left. Head CT with old left temporoparietal craniotomy and mild cerebral atrophy. Lumbar CT with hypertrophic change. Chest x-rays followed for a prominent vascular and left pleural effusion. PT and OT prescribed. Previous functional history as elicited from patient: 57-year-old right-handed white male who is single lives in a trailer home alone. On disability related to neck and back. Describes independent with own cooking, laundry, driving, standing shower. Uses a roller walker for gait and 2016. PCP Dr. Cifuentes,. Review of Systems Review of systems: ENT: Denies sneezes or discharge. Eyes: Denies discharge or photophobia. Cardiac: Denies chest pain or palpitation. Pulmonary: Denies cough or shortness of breath. Gastrointestinal: Denies nausea, emesis, constipation, diarrhea. Genitourinary: Denies discharge or frequency. Musculoskeletal: Denies muscle or bone aches. Neurologic: Denies motor or sensory change. Endocrine: Denies shakes or sweats. Oncology: Denies cancers. Dermatologic: Denies rash, itching, pruritus. ALLERGY/immunology: Denies sneezes, rashes. Past Medical History Past Medical History: Hypertension History of Any Multi-Drug Resistant Organisms: None Reported Past Surgical History: Appendectomy, Orthopedic Surgery, Tonsillectomy Additional Past Surgical History / Comment(s): surgery for brain bleed 2019 or (family unsure) Past Psychological History: No Psychological Hx Reported Past Alcohol Use History: None Reported Past Drug Use History: None Reported - Past Family History family Family Medical History: Cancer Additional Family Medical History / Comment(s): no CAD Medications and Allergies Home Medications Medication Instructions Recorded Confirmed Type Hydrocodone/Acetaminophen [[place] 2 each PO Q6HR PRN #20 tab 01/25/17 08/17/22 Rx 5-325] Metoclopramide [Reglan] 5 mg PO QID PRN 08/17/22 08/17/22 History Metoprolol Succinate (ER) [Toprol 50 mg PO DAILY 08/17/22 08/17/22 History XL] Omeprazole [PriLOSEC] 20 mg PO DAILY 08/17/22 08/17/22 History Potassium Chloride ER [K-Dur 20] 20 meq PO BID 08/17/22 08/17/22 History Pravastatin Sodium [Pravachol] 40 mg PO DAILY 08/17/22 08/17/22 History methocarbamoL [Methocarbamol] 750 mg PO TID PRN 08/17/22 08/17/22 History Allergies Allergy/AdvReac Type Severity Reaction Status Date / Time Penicillins Allergy Unknown Verified 08/17/22 12:59 Childhood Physical Exam Vitals: Vital Signs Temp Pulse Pulse Resp BP BP Pulse Ox 08/29/22 03:00 95 08/29/22 02:00 98.0 F 81 17 100/55 90 L 08/28/22 19:37 100.1 F H 89 17 134/85 94 L 08/28/22 17:00 132/76 08/28/22 16:00 137/76 08/28/22 15:00 128/86 08/28/22 14:00 139/88 08/28/22 13:00 134/82 08/28/22 12:00 82 16 134/82 94 L 08/28/22 10:00 76 19 125/83 94 L 08/28/22 09:00 70 15 121/74 08/28/22 08:00 74 11 L 129/75 08/28/22 07:31 95 08/28/22 07:00 78 19 114/68 08/28/22 06:00 75 15 126/71 Intake and Output 08/28/22 08/28/22 08/29/22 14:59 22:59 06:59 Intake Total 830 180 Output Total 5378 941 5070 Balance -250 -190 -2600 Intake: IV 710 60 .9 @ 10 110 60 Acyclovir Sodium 850 mg 250 In Sodium Chloride 0.9% 250 ml @ 270 mls/hr IVPB Q8HR [facility] Rx#:[id number] Dextrose 5%-0.45% NaCl 1, 100 000 ml @ 50 mls/hr IV . Q20H [facility] Rx#:[id number] Potassium Chloride 20 meq 100 In Water For Injection 1 100ml.bag @ 50 mls/hr IVPB Q2H [facility] Rx#: [id number] ceFAZolin 2 gm In Sodium 50 Chloride 0.9% 50 ml @ 100 mls/hr IVPB Q8H [facility] Rx#: [id number] levETIRAcetam IV 1,000 mg 100 In Saline 1 100ml.bag @ 400 mls/hr IVPB Q12HR [facility] Rx#:[id number] Oral 120 120 Output: Urine 1981 428 0503 Other: Voiding Method Indwelling Catheter Indwelling Catheter # Bowel Movements 1 Weight 89.2 kg 70.5 kg Skin: Good color, texture, turgor. General: Medium build and comfortable appearance. Head: Normocephalic, atraumatic. Eyes: Symmetric. Pupils equal round. Ears: Symmetric. Hearing within normal limits. Mouth: Clear. Neck: Supple. Carotid without bruit. Cardiac: Regular rate and rhythm. Lungs: Clear anteriorly and posteriorly. Abdomen: Soft active nontender. Extremities: Normal tone. Neurological: Mental status: Alert, cooperative, pleasant. Cranial nerves: Symmetric facial tone and trapezius. Motor: Normal strength and isolation all 4 limbs. Sensation: Intact throughout. DTRs: Symmetric and equal throughout. Mobility: Did not attempt to sit or stand as early a.m., just transferred out of ICU. Results CBC & Chem 7: 08/28/22 04:30 08/28/22 04:30 Labs: Microbiology - Last 24 Hours (Table) 08/24/22 17:00 CSF Gram Stain - Final Cerebral Spinal Fluid CSF Culture - Final Assessment and Plan (1) Alcohol withdrawal Current Visit: Yes Status: Acute Code(s): F10.939 - ALCOHOL USE, UNSPECIFIED WITH WITHDRAWAL, UNSPECIFIED SNOMED Code(s): 748940512 (2) Atrial fibrillation with RVR Current Visit: Yes Status: Acute Code(s): I48.91 - UNSPECIFIED ATRIAL FIBRILLATION SNOMED Code(s): 834481136975834 (3) Bacteremia Current Visit: Yes Status: Acute Code(s): R78.81 - BACTEREMIA SNOMED Code(s): 7719248 (4) GI bleed Current Visit: Yes Status: Acute Code(s): K92.2 - GASTROINTESTINAL HEMORRHAGE, UNSPECIFIED SNOMED Code(s): 73074792 (5) Hypokalemia Current Visit: Yes Status: Acute Code(s): E87.6 - HYPOKALEMIA SNOMED Code(s): 14652274 (6) Hypotension Current Visit: Yes Status: Acute Code(s): I95.9 - HYPOTENSION, UNSPECIFIED SNOMED Code(s): 86675039 Plan: Comments and plan: At this time must review PT and OT notes, which are prescribed. Discussed possible inpatient rehab with patient and seems agreeable if necessary.
--- NOTE | 2022-08-29 05:52 | P.PN ---
Progress Note - Text Therapy notes reviewed: PT reports supervision for bed mobility, transfer, gait 70 feet with roller walker. OT reports independent with feeding, supervision with grooming and upper dressing, maximal assistance for lower dressing, minimal assistance for bathing and toilet transfer and moderate assistance for toilet. At this time patient does not meet insurance criteria is is no physical assist needs per PT report. Requires multiple disparity for IP R. We'll continue to follow closely with you for any possible changes in his.
[2022-08-29 05:56] LABS: Glucose,Whole Blood 83 mg/dL (70-110)
[2022-08-29 06:13] LABS: HCT 32.6 % (39.0-53.0); HGB 11.1 gm/dL (13.0-17.5); MCH 31.5 pg (25.0-35.0); MCV 92.7 fL (80.0-100.0); Mean Platelet Volume 9.2; Platelet Count 227 k/uL (150-450); RBC 3.52 m/uL (4.30-5.90); RDW 13.3 % (11.5-15.5); WBC 7.6 k/uL (3.8-10.6)
[2022-08-29 06:23] LABS: African American GFR (CKD) >90 (>60 ml/min/1.73 sqM); Anion Gap 5 mmol/L; Blood Urea Nitrogen 9 mg/dL (9-20); Calcium 7.5 mg/dL (8.4-10.2); Carbon Dioxide 27 mmol/L (22-30); Chloride 108 mmol/L (98-107); Glucose 82 mg/dL (74-99); Magnesium 1.8 mg/dL (1.6-2.3); Non-African American GFR(CKD) >90 (>60 ml/min/1.73 sqM); Potassium 3.1 mmol/L (3.5-5.1); Sodium 140 mmol/L (137-145)
[2022-08-29] MEDS ORDERED: POTASSIUM CHLORIDE ER 20 MEQ TAB.ER PO STA (07:32)
[2022-08-29] MEDS ORDERED: POTASSIUM CHLORIDE 20 MEQ in WATER FOR INJECTION 1 100ML.BAG IVPB STA (07:32)
[2022-08-29] MEDS: ACYCLOVIR SODIUM 850 MG in SODIUM CHLORIDE 0.9% 250 ML IVPB SCH ×4 (07:47→17:53)
[2022-08-29] MEDS: METOPROLOL TARTRATE 25 MG TAB PO SCH ×2 (09:12→20:53)
[2022-08-29] MEDS: ASPIRIN 81 MG PO SCH (09:12)
[2022-08-29] MEDS: ENOXAPARIN 40 MG/0.4 ML SYRINGE SQ SCH (09:12)
[2022-08-29] MEDS: MAGNESIUM SULFATE-D5W PMX 1 GM in DEXTROSE/WATER 1 100ML.BAG IVPB SCH ×2 (09:23→16:27)
[2022-08-29] MEDS: PANTOPRAZOLE 40 MG/10 ML VIAL IVP SCH ×2 (09:24→20:53)
--- NOTE | 2022-08-29 09:34 | P.PN ---
Subjective Progress Note Date: 08/29/22 Patient is a 57-year-old male with history of alcohol dependence/abuse, atrial fibrillation who presented with altered mentation and possible code stroke. On arrival, patient was hemodynamically unstable, in A. fib with RVR, he was intubated and cardioverted to normal sinus rhythm. CT had showed no acute process, interventional neurology drafter electronic did not recommend to give alteplase. Reportedly, patient has been binge drinking, his last drink was on August 11. Per family patient was vomiting prior to becoming unresponsive. His initial labs were consistent with severe dehydration, pH of 7.13, potassium 2.7, creatinine of 3.66, lactic acid of 12.4, mild transaminitis, mild elevated tropo raza, urine tox positive for benzos and marijuana. He was admitted There was also concern for possible GI bleed, patient on IV Protonix, surgery following a hemoglobin stable. Nephrology and ICU also following. LP with traumatic tap, patient was started on vanco and rocephin and ID was consulted. Patient was extubated on 08/26/22. Sensorium has cleared. He had continued fevers. Imaging: Head CT 08/16/22: mild cerebral atrophy CT angio head and neck 08/16/22: negatvive CT chest/abd/pelvis 08/16/22: no significant abnormality US abd/bladder 08/17/22: no hydro EEG 08/19/22: abnormal due to asymetry and background slowing Head CT 08/21/22: prior surgery, mild atrophy EEG 08/22/22: abnormal due to asymmery and sporadic sharp waves Lumbar spine CT 08/25/22: Hypertrophic degenerative changes in the lumbar spine EEG 2.5 hr 08/25/22: Mod-severe diffuse cerebral dysfunction MRI Brain 08/28- numerous white matter changes. Procedures: Art and central line 08/21/22 LP 08/25/22 Patient seen and examined at bedside. No chest pain, SOB, ALDANA, nausea, or vomiting. Denies any IVDA, tattoos were done a Licensed places. General: nontoxic, no distress, appears at stated age Derm: warm, dry Head: atraumatic, normocephalic, symmetric Eyes: EOMI, no lid lag, anicteric sclera Mouth: no lip lesion, mucus membranes moist Cardiovascular: S1S2 reg, no murmur, positive posterior tibial pulse bilateral, Lungs: CTA bilateral, no rhonchi, no rales , no accessory muscle use Abdominal: soft, nontender to palpation, no guarding, no appreciable organomegaly Ext: no gross muscle atrophy, no edema, no contractures Neuro: CN II-XI grossly intact, no focal neuro deficits Psych: Alert, oriented to person, time, and thinks he is at [facility] but then reorients to [place]., appropriate affect Assessment/plan: Continued Pyrexia - Repeat blood cultures - check echo, rule out endocarditis - check b/l LE venous dopplers to rule out DVT - d/w Dr. Heredia there is some meningeal enhancement on MRI brain, recommend treatment for meningitis. 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 however, sputum culture also showing staph -Patient currently on cefazolin, repeat blood cultures no growth to date - cefazloin 08/21, 08/25-, 08/28 - Vanco 08/17, 08/18. 08/21-08/27 - rocephin 08/26, 08/27 Hypokalemia, Hypomagnesium - replace and recheck in AM A. fib with RVR status post cardioversion preformed in the ED Elevated troponin due to deman ischemic -Cardiology signed off , no recurrence of A fib this hospital stay. - consider outpatient follow-up - CHADSVASC 1, ASA recommended Severe Protein calorie malnutrition - dietitian recs - encourage oral intake Resolved: Acute hypoxic and hypercapnic respiratory failure status post intubation Shock, hypovolemic High anion gap metabolic acidosis secondary to Severe lactic acidosis Acute kidney injury Severe hyperphosphatemia Severe hypokalemia GI bleed Hypomagnesemia Thrombocytopenia Transaminitis, resolved Hx: TBI, craniotomy ETOH dependency HTN HLD D/C alexander and central line DVT prophylaxis: Lovenox Discussed with: [facility] radha. Dr. Heredia Anticipated discharge: pending clinical course Anticipated discharge place:pending clinical course A total of minutes was spent on the care of this complex patient more than 50% of the time was spent in counseling and care coordination. Active Medications Generic Name Dose Route Start Last Admin Trade Name Freq PRN Reason Stop Dose Admin Acetaminophen 650 mg 08/27/22 15:06 08/28/22 21:34 Acetaminophen Tab 325 Mg Tab PO 650 mg Q6HR PRN Administration Fever and/ or Pain Aspirin 81 mg 08/29/22 09:00 08/29/22 09:12 Aspirin 81 Mg PO 81 mg DAILY [facility] Administration Enoxaparin Sodium 40 mg 08/17/22 09:00 08/29/22 09:12 Enoxaparin 40 Mg/0.4 Ml Syringe SQ 40 mg DAILY [facility] Administration Thiamine HCl 100 mg/ Sodium 51 mls @ 100 mls/hr 08/17/22 09:00 08/28/22 08:36 Chloride IVPB 100 mls/hr Q24HR [facility] Administration Levetiracetam 1,000 mg/ IV 100 mls @ 400 mls/hr 08/22/22 21:00 08/28/22 21:32 Solution IVPB 400 mls/hr Q12HR [facility] Administration Acyclovir Sodium 850 mg/ 267 mls @ 270 mls/hr 08/26/22 18:30 08/29/22 07:48 Sodium Chloride IVPB Not Given Q8HR [facility] Protocol Cefazolin Sodium 2 gm/ Sodium 50 mls @ 100 mls/hr 08/28/22 00:00 08/29/22 07:48 Chloride IVPB Not Given Q8HR [facility] Protocol Potassium Chloride 20 meq/ IV 100 mls @ 50 mls/hr 08/29/22 07:32 Solution IVPB 08/29/22 09:31 ONCE STA Magnesium Sulfate/Dextrose 1 100 mls @ 100 mls/hr 08/29/22 08:00 gm/ IV Solution IVPB 08/29/22 09:59 Q1H [facility] Metoprolol Tartrate 25 mg 08/18/22 10:45 08/29/22 09:12 Metoprolol Tartrate 25 Mg Tab PO 25 mg BID [facility] Administration Miscellaneous Information 1 each 08/20/22 08:12 Magnesium Replacement Protocol 1 Each Misc MISCELLANE DAILY PRN Per Protocol Protocol Miscellaneous Information 1 each 08/24/22 07:22 Potassium Replacement Protocol 1 Each Misc MISCELLANE DAILY PRN Per Protocol Protocol Naloxone HCl 0.2 mg 08/16/22 23:41 Naloxone 0.4 Mg/Ml 1 Ml Vial IV Q2M PRN Opioid Reversal Pantoprazole Sodium 40 mg 08/17/22 09:30 08/28/22 21:33 Pantoprazole 40 Mg/10 Ml Vial IVP 40 mg BID [facility] Administration Objective - Vital Signs Vital signs: Vital Signs Temp 99.6 F 08/29/22 07:10 Pulse 84 08/29/22 07:10 Resp 18 08/29/22 07:10 BP 120/73 08/29/22 07:10 Pulse Ox 98 08/29/22 07:10 FiO2 35 08/26/22 08:00 Intake & Output 08/28/22 08/29/22 08/29/22 18:59 06:59 18:59 Intake Total 1010 Output Total 1450 2600 Balance -440 -2600 Weight 89.2 kg 70.5 kg Intake: IV 770 .9 @ 10 170 Acyclovir Sodium 850 mg 250 In Sodium Chloride 0.9% 250 ml @ 270 mls/hr IVPB Q8HR [facility] Rx#:[id number] Dextrose 5%-0.45% NaCl 1, 100 000 ml @ 50 mls/hr IV . Q20H [facility] Rx#:[id number] Potassium Chloride 20 meq 100 In Water For Injection 1 100ml.bag @ 50 mls/hr IVPB Q2H [facility] Rx#: [id number] ceFAZolin 2 gm In Sodium 50 Chloride 0.9% 50 ml @ 100 mls/hr IVPB Q8H [facility] Rx#: [id number] levETIRAcetam IV 1,000 mg 100 In Saline 1 100ml.bag @ 400 mls/hr IVPB Q12HR [facility] Rx#:[id number] Oral 240 Output: Urine 1450 2600 Other: Voiding Method Indwelling Catheter # Bowel Movements 1 ABP, PAP, CO, CI - Last Documented Arterial Blood Pressure 83/66 - Labs CBC & Chem 7: 08/29/22 03:50 08/29/22 03:50 Labs: Abnormal Lab Results - Last 24 Hours (Table) 08/27/22 08/29/22 08/29/22 Range/Units 04:35 03:50 03:50 RBC 3.52 L (4.30-5.90) m/uL Hgb 11.1 L (13.0-17.5) gm/dL Hct 32.6 L (39.0-53.0) % Potassium 3.1 L (3.5-5.1) mmol/L Chloride 108 H (98-107) mmol/L Calcium 7.5 L (8.4-10.2) mg/dL Procalcitonin 0.27 H (0.02-0.09) ng/mL Microbiology - Last 24 Hours (Table) 08/24/22 17:00 CSF Gram Stain - Final Cerebral Spinal Fluid CSF Culture - Final
--- NOTE | 2022-08-29 10:46 | P.PN ---
Subjective Progress Note Date: 08/29/22 Principal diagnosis: Respiratory failure. Reevaluated today on , patient remains in the ICU, intubated mechanically ventilated. He is on assist control rate of 18 tidal volume 450 FiO2 35% PEEP of 5 ABG showed a pO2 of 100 pCO2 44 pH of 7.46. His FiO2 was cut down to 35%. Patient continued to have intermittent episodes of seizure-like activities or possibly myoclonic jerks affecting his upper body and upper extremities, with deviation of his eyes with upward gaze. Neurology on the case loaded up with Dilantin yesterday, and he is on Keppra today. Although his EEG according to the neurologist did not show any evidence of seizure activity. Patient to be seen again by neurology today, and decide whether to continue with seizure medications he did receive Dilantin 1 dose yesterday, and he is now on Keppra 1 g twice a day. Early this morning patient had an EEG which is yet to be interpreted by the neurologist. In the meantime the patient is on propofol at 20 mcg/kg/m, Versed 3 mg/h, D5 4 5 at 50 mL per hour and is on vital AF at 30 mL per hour. Unable to cut down on his sedation at this point mostly because of these episodic seizure-like activities or possibly myoclonic jerks. Chest x-ray today showed small left pleural effusion not large enough to consider thoracentesis. His WBC count is 11.5 hemoglobin is 12.1. Basic metabolic profile and renal profile are normal Patient was reevaluated today on 08/24/22, remains in the ICU intubated and mechanically ventilated, he is tidal volume 450 assist-control rate of 18FiO2 is down to 35%, PEEP is 5. ABG showed a pO2 of 110 pCO2 of 44 pH of 7.45, hence no changes were made in the ventilator settings. Neurologically the patient is about the same, continues to have these episodes of myoclonic-like jerks, remains on propofol at 25 mcg/kg/m, remains on Versed at 6 mg/h, patient is supposedly scheduled to have a lumbar puncture done today. Chest x-ray continues to show a small left pleural effusion, otherwise is unremarkable. Labs were all reviewed and they seem to be relatively unremarkable. Again the only reason the patient could not be extubated to mostly because of his neurological status at this point.CBC is relatively normal ABG as noted above. Basic metabolic profile is relatively. Renal profile is normal. Patient is receiving vital AF at 40 mL per hour. Patient remains on GI and DVT prophylaxis Reevaluated today on 08/25/22, patient remains in the ICU, intubated and mechanically ventilated. He is on assist control rate of 18 tidal volume 450 FiO2 35% PEEP of 5. Remains on propofol at 40 mcg/kg/m is also on Versed 1 mg/h. And he is receiving vital AF at 58 mL per hour. No major issues over the last 24 hours, patient seems to be quite sedated with the propofol and Versed. I plan to lower the dose of propofol, and hopefully get to assess mental status today. I could not awaken the patient today to assess mental status, hence I recommended propofol to be cut down significantly and assess mental status RBC the patient not quite ready for any weaning trials. Chest x-ray showed small left pleural effusion, otherwise basically unremarkable. Patient remains on vancomycin for his MSSA, hence I will go back and switch him to 2 g IV piggyback every 8 hours. Labs today showed a relatively normal CBC, normal basic metabolic profile, his spinal fluid results, initial report seems to be unremarkable, however the spinal fluid was obviously bloody and was traumatic. Whether the patient will need a repeat CT of the brain again because of his bloody spinal fluid, that will be decided upon by neurology on the case. Lumbar spine CT showed no evidence of epidural hematoma. Progress note dated 08/26/2022. The patient is seen in the intensive care unit, room 252. He was admitted on August 16 with mental status changes, and acute kidney injury. The patient remains on the mechanical ventilator. Ventilator settings include the volume assist control, rate 18, tidal volume 450, FiO2 35%, and PEEP of 5. Blood gases show pO2 of 99, pCO2 39, pH is 7.48. The patient's on propofol at 25 mcg/kg/m, D5 half-normal saline at 50 mL an hour, and vital AF at 48 mL an hour, which is goal. The patient will get Lasix 40 mg IV push. We will attempt a daily interruption of sedation and a spontaneous breathing trial. The patient appears much more awake and alert today. White count 8, hemoglobin 11.5, hematocrit 34.9, with a normal platelet count. Sodium 144, potassium 3.6, chlorides 114, CO2 28, BUN 13, creatinine 0.65. Blood cultures show staph aureus and staph epidermidis, and sputum samples are positive for Staphylococcus aureus. The patient's chest x-ray shows a small left-sided pleural effusion. Progress note dated 08/27/2022. The patient is again seen in the intensive care unit, room 252. The patient was extubated yesterday. He's currently on 3 L of oxygen. He is getting dextrose with half-normal saline at 50 mL an hour. He is much more awake and alert. He was started on acyclovir, Rocephin, and vancomycin. The Protonix can be converted to by mouth. The hospital service did consult infectious diseases. White count 13, hemoglobin 10.9, hematocrit 32.4, with a normal platelet count. Sodium 139, potassium 3.4, chlorides 110, CO2 27, BUN 12, creatinine 0.67. Blood and sputum samples were positive for Staphylococcus aureus. Chest x-ray shows some mild fluid overload, likely as a result of extubation. Progress note dated 08/28/2022. 57-year-old male again seen in room 252 in the intensive care unit. The patient is doing much better. He is on 3 L. He is fully awake and alert. Half-normal saline at 50 mL an hour. Per infectious diseases, he continues on Ancef and acyclovir. The patient can be transferred to the general medical floor without telemetry. We'll DC his IV, and his arterial line. White count 9.3, hemoglobin 11.1, hematocrit 33.4, and platelet count 204,000. Sodium 139, potassium 3.1, chlorides 109, CO2 26, BUN 9, and creatinine 0.62. Albumin is 2.5. Progress note dated 08/29/2022. 57-year-old male who was transferred out of the intensive care unit, and is seen today, in room 484. Currently, the patient's on room air. He's getting saline at 20 mL an hour, which can be discontinued. Also, the central line can be removed. Labs today include a white count 7.6, hemoglobin 11.1, hematocrit 32.6, and a normal platelet count. Sodium 140, potassium 3.1, chlorides 108, CO2 27, BUN 9, creatinine 0.68. Objective - Vital Signs Vital signs: Vital Signs Temp 99.6 F 08/29/22 07:10 Pulse 84 08/29/22 07:10 Resp 18 08/29/22 09:12 BP 120/73 08/29/22 07:10 Pulse Ox 91 L 08/29/22 09:29 FiO2 35 08/26/22 08:00 Intake & Output 08/28/22 08/29/22 08/29/22 18:59 06:59 18:59 Intake Total 1010 118 Output Total 1450 2600 610 Balance -440 -2600 -492 Weight 89.2 kg 70.5 kg Intake: IV 770 .9 @ 10 170 Acyclovir Sodium 850 mg 250 In Sodium Chloride 0.9% 250 ml @ 270 mls/hr IVPB Q8HR [facility] Rx#:[id number] Dextrose 5%-0.45% NaCl 1, 100 000 ml @ 50 mls/hr IV . Q20H [facility] Rx#:[id number] Potassium Chloride 20 meq 100 In Water For Injection 1 100ml.bag @ 50 mls/hr IVPB Q2H [facility] Rx#: [id number] ceFAZolin 2 gm In Sodium 50 Chloride 0.9% 50 ml @ 100 mls/hr IVPB Q8H [facility] Rx#: [id number] levETIRAcetam IV 1,000 mg 100 In Saline 1 100ml.bag @ 400 mls/hr IVPB Q12HR [facility] Rx#:[id number] Oral 240 118 Output: Urine 1450 2600 610 Uretheral (Grijalva) 610 Other: Voiding Method Indwelling Catheter Indwelling Catheter # Bowel Movements 1 ABP, PAP, CO, CI - Last Documented Arterial Blood Pressure 83/66 - Exam No acute distress, awake and alert, currently on room air. Mental status is back to normal. HEENT examination is grossly unremarkable. Neck supple. Full range of motion. No adenopathy thyromegaly or neck vein distention. Cardiovascular examination reveals regular rhythm rate. S1-S2 normal. No S3 or S4. No discernible murmur noted. Heart rate 84 bpm. Lungs reveal mostly clear breath sounds. Minimal rhonchi. No wheezes or crackles. Room air saturation is 95%. Abdomen soft bowel sounds are heard. No masses or tenderness. Extremities are intact. No cyanosis clubbing or edema. Skin is without rash or lesion. Neurologic examination is brief but nonfocal. - Labs CBC & Chem 7: 08/29/22 03:50 08/29/22 03:50 Labs: Abnormal Lab Results - Last 24 Hours (Table) 08/27/22 08/29/22 08/29/22 Range/Units 04:35 03:50 03:50 RBC 3.52 L (4.30-5.90) m/uL Hgb 11.1 L (13.0-17.5) gm/dL Hct 32.6 L (39.0-53.0) % Potassium 3.1 L (3.5-5.1) mmol/L Chloride 108 H (98-107) mmol/L Calcium 7.5 L (8.4-10.2) mg/dL Procalcitonin 0.27 H (0.02-0.09) ng/mL Microbiology - Last 24 Hours (Table) 08/24/22 17:00 CSF Gram Stain - Final Cerebral Spinal Fluid CSF Culture - Final Assessment and Plan Assessment: Acute respiratory failure, with intubation on August 16, secondary to patient's inability to protect his airway. The patient was successfully extubated on 08/26/2022. Acute mental status changes, much improved. Possible recurrent seizures. Staphylococcus aureus bacteremia. Severe lactic acidosis, resolved. Hypovolemic hypotension, resolved. Anion gap metabolic acidosis. History of alcohol abuse. Acute kidney injury. History of paroxysmal atrial fibrillation. Hypertension. Hyperlipidemia. Plan: Plan dated 08/26/2022. The patient will get Lasix 40 mg IV push. The patient was placed on pressure support of 5 and CPAP of 5. The patient's respiratory rate is low, and tidal volumes are excellent. Minute volume is low. The patient will have a cuff leak test, and likely be extubated. Additional recommendations and suggestions are forthcoming. Prognosis is guarded. Labs, x-rays, medications are reviewed. We will continue to follow the patient and make recommendations along the way. Plan dated 08/27/2022. The patient was successfully extubated August 26. The patient is currently on acyclovir, we will continue to follow the patient and make recommendations along the way. Prognosis is guarded. Labs, x-rays, and medications are all reviewed. Infectious disease acquisition consultant was asked to see the patient. The patient's Protonix chemically converted to by mouth. Additional recommendations and suggestions are forthcoming. Plan dated 08/28/2022. The patient was successfully extubated on August 26. Over the last 2 days, his neurologic status is greatly improved. The patient could be transferred to the general medical floor without telemetry. We'll DC his IV fluids, and DC his arterial line. He remains on Ancef, and acyclovir. Labs, x-rays, and medicati ons are reviewed. Prognosis is guarded. Plan dated 08/29/2022. The patient's MRI of the brain is reviewed. Nothing acute. No evidence of intracranial mass. No evidence of acute cortical infarct. Labs, x-rays, and medications are reviewed. IV can be discontinued. He's currently on room air. His mental status is much improved. He continues on acyclovir, and Ancef. Additional recommendations and suggestions are forthcoming. Prognosis is guarded. We will continue to follow make recommendations along the way. Time with Patient: Less than 30
--- NOTE | 2022-08-29 11:37 | US ---
EXAMINATION TYPE: US venous doppler duplex LE DATE OF EXAM: 08/29/2022 11:17 AM COMPARISON: NONE CLINICAL HISTORY: dvt. Ankle swelling per patient. No redness. SIDE PERFORMED: Bilateral TECHNIQUE: The lower extremity deep venous system is examined utilizing real time linear array sonog gina with graded compression, doppler sonography and color-flow sonography. VESSELS IMAGED: Common Femoral Vein Deep Femoral Vein Greater Saphenous Vein * Femoral Vein Popliteal Vein Small Saphenous Vein * Proximal Calf Veins (* superficial vessels) Right Leg: Negative for DVT, Grayscale, color doppler, spectral doppler imaging performed of the brandy p veins of the lower extremities. There is normal flow, compressibility, vascular waveforms. Left Leg: Negative for DVT, Grayscale, color doppler, spectral doppler imaging performed of the deep veins of the lower extremities. There is normal flow, compressibility, vascular waveforms. IMPRESSION: No evidence of deep vein to most of the bilateral lower extremities.
[2022-08-29 11:52] LABS: Glucose,Whole Blood 93 mg/dL (70-110)
--- NOTE | 2022-08-29 13:20 | P.PN ---
Subjective Progress Note Date: 08/29/22 Principal diagnosis: Fever and bacteremia Patient is a 57 year old male with a past medical history significant for alcohol dependence/abuse history of atrial fibrillation patient was brought to the hospital on 08/16/2022 for evaluation of mental status changes patient presented to the hospital and was hypotensive A. fib with RVR patient got intubated and cardioverted, patient did have evidence of MSSA bacteremia sputum was also positive for the same pathogen subsequently has been running a fever did have a repeat which was traumatic Elevated white count but glucose protein normal. on today's evaluation that is 08/29/2022, the patient did have a low-grade fev er 100.1 last night, the patient is afebrile since then the patient is breathing comfortably on room air patient denies any headache no chest pain shortness of breath occasional cough no abdominal pain, the patient diarrhea has resolved and fecal management system has been removed Objective - Vital Signs Vital signs: Vital Signs Temp 99.6 F 08/29/22 07:10 Pulse 84 08/29/22 07:10 Resp 18 08/29/22 09:12 BP 120/73 08/29/22 07:10 Pulse Ox 91 L 08/29/22 09:29 FiO2 35 08/26/22 08:00 Intake & Output 08/28/22 08/29/22 08/29/22 18:59 06:59 18:59 Intake Total 1010 118 Output Total 1450 2600 610 Balance -072 -2600 -492 Weight 89.2 kg 70.5 kg Intake: IV 770 .9 @ 10 170 Acyclovir Sodium 850 mg 250 In Sodium Chloride 0.9% 250 ml @ 270 mls/hr IVPB Q8HR [facility] Rx#:[id number] Dextrose 5%-0.45% NaCl 1, 100 000 ml @ 50 mls/hr IV . Q20H [facility] Rx#:[id number] Potassium Chloride 20 meq 100 In Water For Injection 1 100ml.bag @ 50 mls/hr IVPB Q2H [facility] Rx#: [id number] ceFAZolin 2 gm In Sodium 50 Chloride 0.9% 50 ml @ 100 mls/hr IVPB Q8H [facility] Rx#: [id number] levETIRAcetam IV 1,000 mg 100 In Saline 1 100ml.bag @ 400 mls/hr IVPB Q12HR [facility] Rx#:[id number] Oral 240 118 Output: Urine 1450 2600 610 Uretheral (Grijalva) 610 Other: Voiding Method Indwelling Catheter Indwelling Catheter # Bowel Movements 1 ABP, PAP, CO, CI - Last Documented Arterial Blood Pressure 83/66 - Exam GENERAL DESCRIPTION: A middle-aged male lying in bed in no distress RESPIRATORY SYSTEM: Unlabored breathing , decreased breath sounds at bases HEART: S1 S2 regular rate and rhythm , ABDOMEN: Soft , no tenderness EXTREMITIES: No edema feet - Labs CBC & Chem 7: 08/29/22 03:50 08/29/22 03:50 Labs: Abnormal Lab Results - Last 24 Hours (Table) 08/27/22 08/29/22 08/29/22 Range/Units 04:35 03:50 03:50 RBC 3.52 L (4.30-5.90) m/uL Hgb 11.1 L (13.0-17.5) gm/dL Hct 32.6 L (39.0-53.0) % Potassium 3.1 L (3.5-5.1) mmol/L Chloride 108 H (98-107) mmol/L Calcium 7.5 L (8.4-10.2) mg/dL Procalcitonin 0.27 H (0.02-0.09) ng/mL Microbiology - Last 24 Hours (Table) 08/24/22 17:00 CSF Gram Stain - Final Cerebral Spinal Fluid CSF Culture - Final Assessment and Plan (1) Bacteremia Current Visit: Yes Status: Acute Code(s): R78.81 - BACTEREMIA SNOMED Code(s): 2929430 (2) Fever Current Visit: Yes Status: Acute Code(s): R50.9 - FEVER, UNSPECIFIED SNOMED Code(s): 304616435 Plan: 1patient with abnormal CSF which is mostly a traumatic tap with more than 40,000 RBC white count is still symptomatic elevated however the patient did have a normal glucose and protein the patient currently denies having any headache and he is aware that he is at [facility] all these factors will go against meningitis or encephalitis 2patient now to have a fever in this patient who did have a positive blood as well as sputum culture for MSSA and did have evidence of a left-sided effusion question of possible pulmonary source/empyema, in addition patient also having diarrhea with fecal management system , stool for C. diff negative 3there was a question of possible meningeal enhancement on the MRI which was not reported on the official MRI plus the patient did have a normal protein and glucose my clinic suspicious for meningitis remains to be low in this patient currently with no headache, I'm okay with switching antibiotics to Rocephin 2 g every 12 hours as per discussion with the admitting and neurologist, should also obtained CT of the chest to make sure patient has not developed any empyema related to his pneumonia, echocardiogram has been ordered as well repeat cultures so far negative Time with Patient: Less than 30
[2022-08-29] MEDS: levETIRAcetam IV 1,000 MG in SALINE 1 100ML.BAG IVPB SCH ×2 (14:17→20:52)
--- NOTE | 2022-08-29 15:41 | P.PN ---
Subjective Progress Note Date: 08/29/22 The patient is seen at bedside and he is accompanied by his friend. Patient states that he's doing progressively better last 2 days compared to his initial presentation. He denies of any headache, nausea vomiting. Denies of any visual disturbance, focal weakness. Patient continues to be selective fever in the last at T-max was yesterday at close to 7:30 PM of 100.1. She stated that the he fell off of a roof in 2016 as a result he had a bleed and had surgical resection. Objective - Vital Signs Vital signs: Vital Signs Temp 98.7 F 08/29/22 14:40 Pulse 77 08/29/22 14:40 Resp 18 08/29/22 14:40 BP 130/74 08/29/22 14:40 Pulse Ox 92 L 08/29/22 14:40 FiO2 35 08/26/22 08:00 Intake & Output 08/28/22 08/29/22 08/29/22 18:59 06:59 18:59 Intake Total 1010 354 Output Total 1450 2600 1035 Balance -440 -2600 -681 Weight 89.2 kg 70.5 kg Intake: IV 770 .9 @ 10 170 Acyclovir Sodium 850 mg 250 In Sodium Chloride 0.9% 250 ml @ 270 mls/hr IVPB Q8HR [facility] Rx#:[id number] Dextrose 5%-0.45% NaCl 1, 100 000 ml @ 50 mls/hr IV . Q20H [facility] Rx#:[id number] Potassium Chloride 20 meq 100 In Water For Injection 1 100ml.bag @ 50 mls/hr IVPB Q2H [facility] Rx#: [id number] ceFAZolin 2 gm In Sodium 50 Chloride 0.9% 50 ml @ 100 mls/hr IVPB Q8H [facility] Rx#: [id number] levETIRAcetam IV 1,000 mg 100 In Saline 1 100ml.bag @ 400 mls/hr IVPB Q12HR [facility] Rx#:[id number] Oral 240 354 Output: Urine 1450 2600 1035 Uretheral (Grijalva) 610 Other: Voiding Method Indwelling Catheter Indwelling Catheter # Bowel Movements 1 ABP, PAP, CO, CI - Last Documented Arterial Blood Pressure 83/66 - Exam GENERAL: The patient is lying in bed and is not in acute distress. NEUROLOGICAL: Higher mental function: The patient is awake,alert, oriented to self, place and time. Patient is following commands. No aphasia and no neglect. Cranial nerves: The pupils are round, equal and reactive to light. Visual bae are full to confrontation throughout. Extraocular movement is intact no nystagmus is noted. The facial strength is normal throughout. Tongue is midline and moved [id number] without any difficulty. No dysarthria is noted. Shoulder shrug is normal bilaterally. Motor: The strength is 5 over 5 throughout. Normal tone and bulk. Cerebellum: Normal finger to nose bilaterally. Sensation: Sensation is normal to touch throughout. SOME OF THE WORK-UP DURING THIS HOSPITAL VISIT CONSISTED OF: * Repeat CT head 08/22/2022 revealed previous surgery. Mild atrophy, no acute intracranial process. I personally reviewed CT head, agree with the findings. * CTA reported as negative of the brain. Mild plaque at the carotid artery bifurcation. No evidence of hemodynamic arterial stenosis in the neck. * Initial EEG 08/19/2022 was abnormal due to amplitude asymmetry with relatively higher amplitude activity in the left frontoparietal region due to breach rhythm from previous craniotomy defect. Background slowing of moderate to severe degree, consistent with generalized cerebral dysfunction, as can be seen with toxic metabolic encephalopathy or due to diffuse structural brain abnormality. Clinical correlation is recommended. No epileptiform activity was seen. * B12 2102, folate 12.90, TSH slightly decreased 0.220, with normal free T4 1.37. Possible due to sick euthyroid. * MRI of the brain is reported as numerous white matter foci the are nonspecific and could relate to demyelinating disease or microvascular ischemia. No evidence of acute cortical infarct. No evidence of intracranial mass. I personally reviewed that imaging with Dr. Pimentel and the was felt the patient has left hemispheric pachymeningeal enhancement and possible old subdural over the left - Labs CBC & Chem 7: 08/29/22 03:50 08/29/22 03:50 Labs: Abnormal Lab Results - Last 24 Hours (Table) 08/27/22 08/29/22 08/29/22 Range/Units 04:35 03:50 03:50 RBC 3.52 L (4.30-5.90) m/uL Hgb 11.1 L (13.0-17.5) gm/dL Hct 32.6 L (39.0-53.0) % Potassium 3.1 L (3.5-5.1) mmol/L Chloride 108 H (98-107) mmol/L Calcium 7.5 L (8.4-10.2) mg/dL Procalcitonin 0.27 H (0.02-0.09) ng/mL Microbiology - Last 24 Hours (Table) 08/24/22 17:00 CSF Gram Stain - Final Cerebral Spinal Fluid CSF Culture - Final Assessment and Plan Assessment: * Confusion with continued fevers and I felt the CSF study even though was traumatic but the calculated nucleated cells were still elevated concerning for meningitis. On MRI Brain it was felt he has left pachymeningeal enhancement. Blood culture and sputum is staph but there is concern for ?contaminant---confused has improved but continues to have fevers * New onset rhythmic twitching of the shoulders bilaterally and some upper ruby bs, probably myoclonic jerks, unlikely to be seizures. EEG did not reveal any epileptiform activity. No status epilepticus---confusion has drastically improved * Patient presented with unresponsiveness. * History of traumatic brain injury with subdural hematoma, status post craniotomy in 2016 * History of alcoholism. * Elevated ammonia, abnormal liver functions, rule out cirrhosis. * Acute kidney injury, now resolved * Status post shock, likely hypovolemic * Atrial fibrillation with RVR, status post cardioversion * Acute respiratory failure, on mechanical ventilation * Elevated troponin Plan: * CSF revealed normal glucose 69, CSF protein 57(12-60), WBC count 160, polynu clear 77%, mononuclear cells 18%, eosinophils 5%. The corrected nucleated cells is 80 cells (for every 1 nucleated cells is 500-1000rbc). 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 MRI of the brain is reported as numerous white matter foci the are nonspecific and could relate to demyelinating disease or microvascular ischemia. No evidence of acute cortical infarct. No evidence of intracranial mass. I personally reviewed that imaging with Dr. Pimentel and the was felt the patient has left hemispheric pachymeningeal enhancement and possible old subdural over the left. I spoken with I.D. team and primary team and they agree that corrected nucleated is elevated. Recommend third-generation cephalosporin * Patient had a prolonged, 2.5 hour EEG performed 08/23/2022. According to preliminary report from Dr. Lopez, did not reveal any epileptiform activit y. Some triphasic waves are seen. No status epilepticus. Official report pending. We will continue Keppra 1000 mg twice a day for possible seizure- like activity. I will not modify as of now because of meningeal enhancement and his clinical presentation in the beginning. * Primary is getting further investigation for his continued fevers. I.D. is on board. The plan is discussed in detailed with patient, primary team and I.D. team. Will continue to follow. Time with Patient: Less than 30
[2022-08-29 16:40] LABS: Glucose,Whole Blood 86 mg/dL (70-110)
[2022-08-29] MEDS: THIAMINE 100 MG in SODIUM CHLORIDE 0.9% 50 ML IVPB SCH (17:27)
[2022-08-29 20:15] LABS: Glucose,Whole Blood 99 mg/dL (70-110)
[2022-08-30 00:10] LABS: Glucose,Whole Blood 95 mg/dL (70-110)
[2022-08-30] MEDS: ACYCLOVIR SODIUM 850 MG in SODIUM CHLORIDE 0.9% 250 ML IVPB SCH ×2 (01:14→08:03)
[2022-08-30 06:08] LABS: Glucose,Whole Blood 101 mg/dL (70-110)
[2022-08-30] MEDS: METOPROLOL TARTRATE 25 MG TAB PO SCH ×2 (07:42→20:17)
[2022-08-30] MEDS: ENOXAPARIN 40 MG/0.4 ML SYRINGE SQ SCH (07:42)
[2022-08-30] MEDS: ASPIRIN 81 MG PO SCH (07:42)
[2022-08-30] MEDS: PANTOPRAZOLE 40 MG/10 ML VIAL IVP SCH ×2 (07:45→20:17)
[2022-08-30] MEDS: levETIRAcetam IV 1,000 MG in SALINE 1 100ML.BAG IVPB SCH ×2 (07:45→20:17)
--- NOTE | 2022-08-30 08:47 | CA ---
Transthoracic Echo Report Name: Reji Preston Age: 57 Gender: M : 1965 Exam Date: 08/29/2022 13:55 Exam Location: [facility] Ht (in): 70 Wt (lb): 155 Ordering Physician: Mame Sotelo DO Attending/Referring Phys: [id number], Deepak Jointer Operator Megan Little RDCS Procedure CPT: Indications: Endocarditis Cardiac Hx: Technical Quality: Contrast 1: Total Dose (mL): Contrast 2: Total Dose (mL): MEASUREMENTS (Male / Female) Normal Values 2D ECHO LV Diastolic Diameter PLAX 5.2 cm 4.2 - 5.9 / 3.9 - 5.3 cm LV Systolic Diameter PLAX 3.3 cm IVS Diastolic Thickness 1.1 cm 0.6 - 1.0 / 0.6 - 0.9 cm LVPW Diastolic Thickness 1.0 cm 0.6 - 1.0 / 0.6 - 0.9 cm LV Relative Wall Thickness 0.4 RV Internal Dim ED PLAX 3.4 cm LA Volume 101.9 cm??? 18 - 58 / 22 - 52 cm??? M-MODE Aortic Root Diameter MM 2.8 cm LA Systolic Diameter MM 4.6 cm LA Ao Ratio MM 1.6 AV Cusp Separation MM 2.0 cm DOPPLER AV Peak Velocity 148.2 cm/s AV Peak Gradient 8.8 mmHg AV Mean Velocity 113.9 cm/s AV Mean Gradient 5.6 mmHg AV Velocity Time Integral 27.7 cm LVOT Peak Velocity 138.0 cm/s LVOT Peak Gradient 7.6 mmHg LVOT Velocity Time Integral 29.0 cm MV Area PHT 3.8 cm??? Mitral E Point Velocity 92.2 cm/s Mitral A Point Velocity 66.6 cm/s Mitral E to A Ratio 1.4 MV Deceleration Time 197.1 ms TR Peak Velocity 299.3 cm/s TR Peak Gradient 35.8 mmHg Right Ventricular Systolic Press 40.5 mmHg FINDINGS Left Ventricle Normal Left ventricular size, wall thickness, systolic function with no obvious regional wall motion abnormalities. Normal Left ventricular diastolic filling pattern. Left ventricular ejection fraction is estimated at 55-60 %. Right Ventricle Normal right ventricular size and function. Mild pulmonary hypertension. Right Atrium Normal right atrial size. Left Atrium Severely increased left atrial volume. Mildly increased left atrial area. Mitral Valve Structurally normal mitral valve. Mild mitral regurgitation. Aortic Valve Trileaflet aortic valve. No aortic stenosis. Trace aortic regurgitation. Tricuspid Valve Structurally normal tricuspid valve. Mild tricuspid regurgitation. Pulmonic Valve Trace pulmonic regurgitation. Pericardium No pericardial effusion. Aorta Normal size aortic root and proximal ascending aorta. CONCLUSIONS LVH with preserved LV systolic function Previewed by: Dr. Morgan Alfaro MD (Electronically Signed) Final Date: 30 August 2022 08:46
[2022-08-30 08:49] LABS: Basophils # (A) 0.03 X 10*3/uL (0.00-0.10); Basophils % (A) 0.5 %; Eosinophils % (A) 4.7 %; HCT 31.5 % (39.6-50.0); HGB 10.2 g/dL (13.0-17.0); Immature Grans, Automated 0.3 %; Lymphocytes # (A) 1.63 X 10*3/uL (0.90-5.00); Lymphocytes % (A) 25.4 %; MCH 30.1 pg (27.0-32.0); MCHC 32.4 g/dL (32.0-37.0); MCV 92.9 fL (80.0-97.0); Mean Platelet Volume 11.7 fL (9.5-12.2); Monocytes % (A) 7.8 %; NRBC Per 100 WBC 0 /100 WBCS (0.0-0.0); Neutrophils # (A) 3.93 X 10*3/uL (1.80-7.70); Neutrophils % (A) 61.3 %; Platelet Count 242 X 10*3/uL (140-440); RBC 3.39 X 10*6/uL (4.40-5.60); RDW 13.6 % (11.5-14.5); WBC 6.41 X 10*3/uL (4.50-10.00)
[2022-08-30 09:07] LABS: African American GFR (CKD) 119.7 (60.0-200.0); Albumin 2.8 g/dL (3.8-4.9); Albumin/Globulin Ratio 1.17 (1.60-3.17); Anion Gap 10.3 mmol/L (10.00-18.00); BUN/Creat Ratio 7.43 Ratio (12.00-20.00); Blood Urea Nitrogen 5.2 mg/dL (9.0-27.0); C Reactive Protein 6.8 mg/dL (0.00-0.80); Calcium 7.9 mg/dL (8.7-10.3); Carbon Dioxide 24.7 mmol/L (20.0-27.5); Globulin 2.4 g/dL (1.6-3.3); Magnesium 1.9 mg/dL (1.5-2.4); Non-African American GFR(CKD) 103.3 (60.0-200.0); Potassium 3.6 mmol/L (3.5-5.5); Total Bilirubin 0.3 mg/dL (0.30-1.20); Total Protein 5.2 g/dL (6.2-8.2)
[2022-08-30] MEDS: THIAMINE 100 MG in SODIUM CHLORIDE 0.9% 50 ML IVPB SCH (09:46)
--- NOTE | 2022-08-30 11:34 | P.PN ---
Subjective Progress Note Date: 08/30/22 I am following seeing the patient and he stated he is doing drastically better. Today he was walking down the espinoza with therapy and using a walker and feels he is gaining strength on a daily basis. Denies of any headache. No further headache since 08/28. I spoke with Dr. Wright (reading radiologist) regarding his MRI Brain and he feels the pachymeningeal enhancement on the left with fluid collection on the left side behind skull and these finding can still occur since old surgical resection but clinically correlate. Objective - Vital Signs Vital signs: Vital Signs Temp 97.5 F L 08/30/22 07:26 Pulse 83 08/30/22 07:26 Resp 18 08/30/22 07:26 BP 134/77 08/30/22 07:26 Pulse Ox 94 L 08/30/22 08:49 FiO2 35 08/26/22 08:00 Intake & Output 08/29/22 08/30/22 08/30/22 18:59 06:59 18:59 Intake Total 472 Output Total 1035 800 150 Balance -563 -800 -150 Weight 51 kg 83.4 kg Intake: Oral 472 Output: Urine 1035 800 150 Uretheral (Grijalva) 610 Other: Voiding Method Indwelling Catheter Urinal Urinal # Voids 1 ABP, PAP, CO, CI - Last Documented Arterial Blood Pressure 83/66 - Exam GENERAL: The patient is lying in bed and is not in acute distress. NEUROLOGICAL: Higher mental function: The patient is awake,alert, oriented to self, place and time. Patient is following commands. No aphasia and no neglect. Cranial nerves: The pupils are round, equal and reactive to light. Visual bae are full to confrontation throughout. Extraocular movement is intact no nystagmus is noted. The facial strength is normal throughout. Tongue is midline and moved [id number] without any difficulty. No dysarthria is noted. Shoulder shrug is normal bilaterally. Motor: Using a walker and walking on his own. The strength is 5 over 5 throughout. Normal tone and bulk. Cerebellum: Normal finger to nose bilaterally. Sensation: Sensation is normal to touch throughout. SOME OF THE WORK-UP DURING THIS HOSPITAL VISIT CONSISTED OF: * Repeat CT head 08/22/2022 revealed previous surgery. Mild atrophy, no acute intracranial process. I personally reviewed CT head, agree with the findings. * CTA reported as negative of the brain. Mild plaque at the carotid artery bifurcation. No evidence of hemodynamic arterial stenosis in the neck. * Initial EEG 08/19/2022 was abnormal due to amplitude asymmetry with relatively higher amplitude activity in the left frontoparietal region due to breach rhythm from previous craniotomy defect. Background slowing of moderate to severe degree, consistent with generalized cerebral dysfunction, as can be seen with toxic metabolic encephalopathy or due to diffuse structural brain abnormality. Clinical correlation is recommended. No epileptiform activity was seen. * B12 2102, folate 12.90, TSH slightly decreased 0.220, with normal free T4 1. 37. Possible due to sick euthyroid. * MRI of the brain is reported as numerous white matter foci the are nonspecific and could relate to demyelinating disease or microvascular ischemia. No evidence of acute cortical infarct. No evidence of intracranial mass. I personally reviewed that imaging with Dr. Pimentel and the was felt the patient has left hemispheric pachymeningeal enhancement and possible old subdural over the left. I spoke with Dr. Wright (reading radiologist) on 08/30 regarding his MRI Brain and he feels the pachymeningeal enhancement on the left with fluid collection on the left side behind skull and these finding can still occur since old surgical resection but clinically correlate. - Labs CBC & Chem 7: 08/30/22 05:40 08/30/22 05:40 Labs: Abnormal Lab Results - Last 24 Hours (Table) 08/30/22 08/30/22 Range/Units 05:40 05:40 RBC 3.39 L (4.40-5.60) X 10*6/uL Hgb 10.2 L (13.0-17.0) g/dL Hct 31.5 L (39.6-50.0) % BUN 5.2 L (9.0-27.0) mg/dL BUN/Creatinine Ratio 7.43 L (12.00-20.00) Ratio Calcium 7.9 L (8.7-10.3) mg/dL AST 47 H (14-35) U/L C-Reactive Protein 6.80 H (0.00-0.80) mg/dL Total Protein 5.2 L (6.2-8.2) g/dL Albumin 2.8 L (3.8-4.9) g/dL Albumin/Globulin Ratio 1.17 L (1.60-3.17) g/dL Microbiology - Last 24 Hours (Table) 08/29/22 11:30 Catheter Tip Culture - Preliminary Catheter Tip 08/28/22 16:20 Blood Culture - Preliminary Blood No Growth after 24 hours Assessment and Plan Assessment: * Confusion with continued fevers and I felt the CSF study even though was traumatic but the calculated nucleated cells were still elevated and was on antibiotic for few days prior to CSF study is concerning for meningoencephalitis. Blood culture and sputum is staph but there is concern for ?contaminant---confused has improved * New onset rhythmic twitching of the shoulders bilaterally and some upper limbs, probably myoclonic jerks, unlikely to be seizures. EEG did not reveal any epileptiform activity. No status epilepticus---confusion has drastically improved * Patient presented with unresponsiveness. * History of traumatic brain injury with subdural hematoma, status post craniotomy in 2016 * History of alcoholism. * Elevated ammonia, abnormal liver functions, rule out cirrhosis. * Acute kidney injury, now resolved * Status post shock, likely hypovolemic * Atrial fibrillation with RVR, status post cardioversion Plan: * CSF revealed bloody, red, rbc csf 31564, normal glucose 69, CSF protein 57(12-60), WBC count 160, polynuclear 77%, mononuclear cells 18%, eosinophils 5%, . The corrected nucleated cells is 80 cells (for every 1 nucleated cells is 500-1000rbc). 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 Possibly more encephalitis since glucose and protein normal but cannot rule out meningitis since CSF was done later and was on antibiotic. MRI of the brain is reported as numerous white matter foci the are nonspecific and could relate to demyelinating disease or microvascular ischemia. No evidence of acute cortical infarct. No evidence of intracranial mass. I spoke with Dr. Wright (reading radiologist) on 08/30 regarding his MRI Brain and he feels the pachymeningeal enhancement on the left with fluid collection on the left side behind skull and these finding can still occur since old surgical resection but clinically correlate. * On Ceftriaxone 2gm every 12 hours and on IV Acyclovir 850mg every 8 hours. Will defer modification of medication to I.D. team. Clinically he is doing better with these medications and no further fevers since 08/28. * Patient had a prolonged, 2.5 hour EEG performed 08/23/2022. According to preliminary report from Dr. Lopez, did not reveal any epileptiform activity. Some triphasic waves are seen. No status epilepticus. Official report pending. We will continue Keppra 1000 mg twice a day for possible seizure-like activity. I will not modify as of now because of meningeal enhancement and his clinical presentation in the beginning. * Likely had decondition from his prolonged ICU was immobile. * Primary is getting further investigation for his continued fevers. I.D. is on board. The plan is discussed in detailed with patient and primary team. Will continue to follow. Time with Patient: Less than 30
[2022-08-30 12:53] VITALS: BMI 26.4
--- NOTE | 2022-08-30 14:14 | P.PN ---
Subjective Progress Note Date: 08/30/22 Principal diagnosis: acute respiratory failure Reevaluated today on , patient remains in the ICU, intubated mechanically ventilated. He is on assist control rate of 18 tidal volume 450 FiO2 35% PEEP of 5 ABG showed a pO2 of 100 pCO2 44 pH of 7.46. His FiO2 was cut down to 35%. Patient continued to have intermittent episodes of seizure-like activities or possibly myoclonic jerks affecting his upper body and upper extremities, with deviation of his eyes with upward gaze. Neurology on the case loaded up with Dilantin yesterday, and he is on Keppra today. Although his EEG according to the neurologist did not show any evidence of seizure activity. Patient to be seen again by neurology today, and decide whether to continue with seizure medications he did receive Dilantin 1 dose yesterday, and he is now on Keppra 1 g twice a day. Early this morning patient had an EEG which is yet to be interpreted by the neurologist. In the meantime the patient is on propofol at 20 mcg/kg/m, Versed 3 mg/h, D5 4 5 at 50 mL per hour and is on vital AF at 30 mL per hour. Unable to cut down on his sedation at this point mostly because of these episodic seizure-like activities or possibly myoclonic jerks. Chest x-ray today showed small left pleural effusion not large enough to consider thoracentesis. His WBC count is 11.5 hemoglobin is 12.1. Basic metabolic profile and renal profile are normal Patient was reevaluated today on 08/24/22, remains in the ICU intubated and mechanically ventilated, he is tidal volume 450 assist-control rate of 18FiO2 is down to 35%, PEEP is 5. ABG showed a pO2 of 110 pCO2 of 44 pH of 7.45, hence no changes were made in the ventilator settings. Neurologically the patient is about the same, continues to have these episodes of myoclonic-like jerks, remains on propofol at 25 mcg/kg/m, remains on Versed at 6 mg/h, patient is supposedly scheduled to have a lumbar puncture done today. Chest x-ray continues to show a small left pleural effusion, otherwise is unremarkable. Labs were all reviewed and they seem to be relatively unremarkable. Again the only reason the patient could not be extubated to mostly because of his neuro logical status at this point.CBC is relatively normal ABG as noted above. Basic metabolic profile is relatively. Renal profile is normal. Patient is receiving vital AF at 40 mL per hour. Patient remains on GI and DVT prophylaxis Reevaluated today on 08/25/22, patient remains in the ICU, intubated and mechanically ventilated. He is on assist control rate of 18 tidal volume 450 FiO2 35% PEEP of 5. Remains on propofol at 40 mcg/kg/m is also on Versed 1 mg/h. And he is receiving vital AF at 58 mL per hour. No major issues over the last 24 hours, patient seems to be quite sedated with the propofol and Versed. I plan to lower the dose of propofol, and hopefully get to assess mental status today. I could not awaken the patient today to assess mental status, hence I recommended propofol to be cut down significantly and assess mental status RBC the patient not quite ready for any weaning trials. Chest x-ray showed small left pleural effusion, otherwise basically unremarkable. Patient remains on vancomycin for his MSSA, hence I will go back and switch him to 2 g IV piggyback every 8 hours. Labs today showed a relatively normal CBC, normal basic metabolic profile, his spinal fluid results, initial report seems to be unremarkable, however the spinal fluid was obviously bloody and was traumatic. Whether the patient will need a repeat CT of the brain again because of his bloody spinal fluid, that will be decided upon by neurology on the case. Lumbar spine CT showed no evidence of epidural hematoma. Progress note dated 08/26/2022. The patient is seen in the intensive care unit, room 252. He was admitted on August 16 with mental status changes, and acute kidney injury. The patient remains on the mechanical ventilator. Ventilator settings include the volume assist control, rate 18, tidal volume 450, FiO2 35%, and PEEP of 5. Blood gases show pO2 of 99, pCO2 39, pH is 7.48. The patient's on propofol at 25 mcg/kg/m, D5 half-normal saline at 50 mL an hour, and vital AF at 48 mL an hour, which is goal. The patient will get Lasix 40 mg IV push. We will attempt a daily interruption of sedation and a spontaneous breathing trial. The patient appears much more awake and alert today. White count 8, hemoglobin 11.5, hematocrit 34.9, with a normal platelet count. Sodium 144, potassium 3.6, chlorides 114, CO2 28, BUN 13, creatinine 0.65. Blood cultures show staph aureus and staph epidermidis, and sputum samples are positive for Staphylococcus aureus. The pat ient's chest x-ray shows a small left-sided pleural effusion. Progress note dated 08/27/2022. The patient is again seen in the intensive care unit, room 252. The patient was extubated yesterday. He's currently on 3 L of oxygen. He is getting dextrose with half-normal saline at 50 mL an hour. He is much more awake and alert. He was started on acyclovir, Rocephin, and vancomycin. The Protonix can be converted to by mouth. The hospital service did consult infectious diseases. White count 13, hemoglobin 10.9, hematocrit 32.4, with a normal platelet count. Sodium 139, potassium 3.4, chlorides 110, CO2 27, BUN 12, creatinine 0.67. Blood and sputum samples were positive for Staphylococcus aureus. Chest x-ray shows some mild fluid overload, likely as a result of extubation. Progress note dated 08/28/2022. 57-year-old male again seen in room 252 in the intensive care unit. The patient is doing much better. He is on 3 L. He is fully awake and alert. Half-normal saline at 50 mL an hour. Per infectious diseases, he continues on Ancef and acyclovir. The patient can be transferred to the general medical floor without telemetry. We'll DC his IV, and his arterial line. White count 9.3, hemoglobin 11.1, hematocrit 33.4, and platelet count 204,000. Sodium 139, potassium 3.1, chlorides 109, CO2 26, BUN 9, and creatinine 0.62. Albumin is 2.5. Progress note dated 08/29/2022. 57-year-old male who was transferred out of the intensive care unit, and is seen today, in room 484. Currently, the patient's on room air. He's getting saline at 20 mL an hour, which can be discontinued. Also, the central line can be removed. Labs today include a white count 7.6, hemoglobin 11.1, hematocrit 32.6, and a normal platelet count. Sodium 140, potassium 3.1, chlorides 108, CO2 27, BUN 9, creatinine 0.68. I'm evaluating this patient today 08/30/2022 in follow-up on a general medical floor. Patient is currently sitting up in the chair, in good spirits, on room air, in no acute distress. No new chest x-ray to review today. Patient did have a chest CT without contrast today, which showed some right lung patchy atelectasis and some bibasilar atelectasis. Patient remains afebrile. Continues on Rocephin per infectious disease. Echocardiogram from yesterday showed a preserved ejection fraction of 55-60%. Patient's CBC was quite stable with a WBC count of 6.4, hemoglobin 10.2, hematocrit 31.5, platelets 242,000. Patient's BMP shows a sodium 142, potassium 3.6, chloride 107, serum CO2 24.7, BUN 5.2, creatinine 0.7, glucose 86. Receiving Lovenox for DVT prophylaxis and Protonix for GI prophylaxis. Vital signs remain stable. Objective - Vital Signs Vital signs: Vital Signs Temp 97.5 F L 08/30/22 07:26 Pulse 83 08/30/22 07:26 Resp 18 08/30/22 07:26 BP 134/77 08/30/22 07:26 Pulse Ox 94 L 08/30/22 08:49 FiO2 35 08/26/22 08:00 Intake & Output 08/29/22 08/30/22 08/30/22 18:59 06:59 18:59 Intake Total 472 Output Total 1035 800 150 Balance -563 -800 -150 Weight 51 kg 83.4 kg Intake: Oral 472 Output: Urine 1035 800 150 Uretheral (Grijalva) 610 Other: Voiding Method Indwelling Catheter Urinal Urinal # Voids 1 ABP, PAP, CO, CI - Last Documented Arterial Blood Pressure 83/66 - Exam Alert, 57-year-old white male, sitting up in the chair, in no acute distress. HEENT examination is grossly unremarkable. Neck supple. Full range of motion. No adenopathy thyromegaly or neck vein distention. Cardiovascular examination reveals regular rhythm rate. S1-S2 normal. No S3 or S4. No discernible murmur noted. Heart rate 84 bpm. Lung sounds with equal air entry, clear to auscultation bilaterally. No wheezes, rhonchi, crackles. Room air saturation is 93%. Abdomen soft bowel sounds are heard. No masses or tenderness. Extremities are intact. No cyanosis clubbing or edema. Skin is without rash or lesion. Neurologic examination is brief but nonfocal. - Labs CBC & Chem 7: 08/30/22 05:40 08/30/22 05:40 Labs: Abnormal Lab Results - Last 24 Hours (Table) 08/30/22 08/30/22 Range/Units 05:40 05:40 RBC 3.39 L (4.40-5.60) X 10*6/uL Hgb 10.2 L (13.0-17.0) g/dL Hct 31.5 L (39.6-50.0) % BUN 5.2 L (9.0-27.0) mg/dL BUN/Creatinine Ratio 7.43 L (12.00-20.00) Ratio Calcium 7.9 L (8.7-10.3) mg/dL AST 47 H (14-35) U/L C-Reactive Protein 6.80 H (0.00-0.80) mg/dL Total Protein 5.2 L (6.2-8.2) g/dL Albumin 2.8 L (3.8-4.9) g/dL Albumin/Globulin Ratio 1.17 L (1.60-3.17) g/dL Microbiology - Last 24 Hours (Table) 08/29/22 11:30 Catheter Tip Culture - Preliminary Catheter Tip 08/29/22 09:23 Blood Culture - Preliminary Blood No Growth after 24 hours 08/28/22 16:20 Blood Culture - Preliminary Blood No Growth after 24 hours Assessment and Plan Assessment: Acute respiratory failure, with intubation on August 16, secondary to patient's inability to protect his airway. The patient was successfully extubated on 08/26/2022. Acute mental status changes, much improved. Possible recurrent seizures. Staphylococcus aureus bacteremia. Severe lactic acidosis, resolved. Hypovolemic hypotension, resolved. Anion gap metabolic acidosis. History of alcohol abuse. Acute kidney injury. History of paroxysmal atrial fibrillation. Hypertension. Hyperlipidemia. Plan: Patient's medications, labs, nonenhanced chest CT were reviewed Continue antibiotics per infectious disease On room air Mentation is back to baseline From a pulmonary standpoint, patient is cleared for discharge. I have personally seen and examined the patient, performed the documentation and the assessment and plan as written. Number of minutes spent on the visit: 10. Time with Patient: Less than 30
--- NOTE | 2022-08-30 14:47 | P.PN ---
Subjective Progress Note Date: 08/30/22 Principal diagnosis: Fever and bacteremia Patient is a 57 year old male with a past medical history significant for alcohol dependence/abuse history of atrial fibrillation patient was brought to the hospital on 08/16/2022 for evaluation of mental status changes patient presented to the hospital and was hypotensive A. fib with RVR patient got intubated and cardioverted, patient did have evidence of MSSA bacteremia sputum was also positive for the same pathogen subsequently has been running a fever did have a repeat which was traumatic Elevated white count but glucose protein normal. on today's evaluation that is 08/30/2022, the patient is afebrile today, the p atient is breathing comfortably on room air patient denies any headache no chest pain shortness of breath occasional cough but no sputum production no abdominal pain, the patient diarrhea has resolved and no urinary symptoms Objective - Vital Signs Vital signs: Vital Signs Temp 97.5 F L 08/30/22 07:26 Pulse 83 08/30/22 07:26 Resp 18 08/30/22 07:26 BP 134/77 08/30/22 07:26 Pulse Ox 94 L 08/30/22 08:49 FiO2 35 08/26/22 08:00 Intake & Output 08/29/22 08/30/22 08/30/22 18:59 06:59 18:59 Intake Total 472 Output Total 1035 800 150 Balance -563 -800 -150 Weight 51 kg 83.4 kg Intake: Oral 472 Output: Urine 1035 800 150 Uretheral (Grijalva) 610 Other: Voiding Method Indwelling Catheter Urinal Urinal # Voids 1 ABP, PAP, CO, CI - Last Documented Arterial Blood Pressure 83/66 - Exam GENERAL DESCRIPTION: A middle-aged male lying in bed in no distress RESPIRATORY SYSTEM: Unlabored breathing , decreased breath sounds at bases HEART: S1 S2 regular rate and rhythm , ABDOMEN: Soft , no tenderness EXTREMITIES: No edema feet - Labs CBC & Chem 7: 08/30/22 05:40 08/30/22 05:40 Labs: Abnormal Lab Results - Last 24 Hours (Table) 08/30/22 08/30/22 Range/Units 05:40 05:40 RBC 3.39 L (4.40-5.60) X 10*6/uL Hgb 10.2 L (13.0-17.0) g/dL Hct 31.5 L (39.6-50.0) % BUN 5.2 L (9.0-27.0) mg/dL BUN/Creatinine Ratio 7.43 L (12.00-20.00) Ratio Calcium 7.9 L (8.7-10.3) mg/dL AST 47 H (14-35) U/L C-Reactive Protein 6.80 H (0.00-0.80) mg/dL Total Protein 5.2 L (6.2-8.2) g/dL Albumin 2.8 L (3.8-4.9) g/dL Albumin/Globulin Ratio 1.17 L (1.60-3.17) g/dL Microbiology - Last 24 Hours (Table) 08/29/22 09:23 Blood Culture - Preliminary Blood No Growth after 24 hours 08/29/22 11:30 Catheter Tip Culture - Preliminary Catheter Tip 08/28/22 16:20 Blood Culture - Preliminary Blood No Growth after 24 hours Assessment and Plan (1) Bacteremia Current Visit: Yes Status: Acute Code(s): R78.81 - BACTEREMIA SNOMED Code(s): 9868157 (2) Fever Current Visit: Yes Status: Acute Code(s): R50.9 - FEVER, UNSPECIFIED SNOMED Code(s): 263233002 Plan: 1patient with abnormal CSF which is mostly a traumatic tap with more than 40,000 RBC white count is still symptomatic elevated however the patient did have a normal glucose and protein the patient currently denies having any headache and he is aware that he is at [facility] all these factors will go against meningitis or encephalitis 2patient now to have a fever in this patient who did have a positive blood as well as sputum culture for MSSA and did have evidence of a left-sided effusion question of possible pulmonary source/empyema, in addition patient also having diarrhea with fecal management system , stool for C. diff negative 3there was a question of possible meningeal enhancement on the MRI which was not reported on the official MRI plus the patient did have a normal protein and glucose my clinic suspicious for meningitis remains to be low in this patient currently with no headache, patient echocardiogram was negative for any vegetation, CT of the chest is currently pending patient to continue with the Rocephin and monitor clinical course closely Family the bedside questions were answered Time with Patient: Less than 30
--- NOTE | 2022-08-30 14:48 | CT ---
Exam: CT Chest without contrast. Date: 08/30/2022. Comparison: CT chest, abdomen and pelvis on 08/16/2022. History: Pneumonia. Technique: CT examination of the chest was performed without contrast. Coronal and sagittal reformats were performed. CT dose lowering techniques were used, to include: automated exposure control, adjus tment for patient size, and/or use of iterative reconstruction. FINDINGS: Mediastinum and Loretta: There is no axillary, mediastinal or hilar lymphadenopathy. Pleural and Pericardial spaces: There is a small left pleural effusion. Trace right pleural fluid is also noted. Upper Abdomen: The visualized upper abdomen is unremarkable. Cardiovascular: There is mild vascular calcification throughout the aortic arch without evidence of a neurysmal dilation. There are moderate patchy coronary artery calcifications and mild global cardiome deven. Lung Parenchyma and Airways: Some mild consolidative changes seen within the posterior aspect of the right upper lobe and posterior superior aspect of the right middle lobe which is suspicious for pneum onia. There are a few linear bands of opacities otherwise seen within the lungs bilaterally which are likely atelectasis or scarring. Bones: No fracture or aggressive osseous lesion. IMPRESSION: 1. Right upper and right middle lobe opacity is suspicious for a pneumonia described above. 2. Small left pleural effusion. 3. Cardiomegaly and coronary artery calcifications.
--- NOTE | 2022-08-30 15:17 | P.PN ---
Subjective Progress Note Date: 08/30/22 Hospital Course: Patient is a 57-year-old male with history of alcohol dependence/abuse, atrial fibrillation who presented with altered mentation and possible code stroke. On arrival, patient was hemodynamically unstable, in A. fib with RVR, he was intubated and cardioverted to normal sinus rhythm. CT had showed no acute process, interventional neurology deputy probation officer did not recommend to give alteplase. Reportedly, patient has been binge drinking, his last drink was on August 11. Per family patient was vomiting prior to becoming unresponsive. His initial labs were consistent with severe dehydration, pH of 7.13, potassium 2.7, creatinine of 3.66, lactic acid of 12.4, mild transaminitis, mild elevated troponin, urine tox positive for benzos and marijuana. He was admitted There w as also concern for possible GI bleed, patient on IV Protonix, surgery following a hemoglobin stable. Nephrology and ICU also following. LP with traumatic tap, patient was started on vanco and rocephin and ID was consulted. Patient was extubated on 08/26/22. Sensorium has cleared. He had continued fevers. Now has been afebrile for a few days on acyclovir and ceftriaxone Imaging: Head CT 08/16/22: mild cerebral atrophy CT angio head and neck 08/16/22: negatvive CT chest/abd/pelvis 08/16/22: no significant abnormality US abd/bladder 08/17/22: no hydro EEG 08/19/22: abnormal due to asymetry and background slowing Head CT 08/21/22: prior surgery, mild atrophy EEG 08/22/22: abnormal due to asymmery and sporadic sharp waves Lumbar spine CT 08/25/22: Hypertrophic degenerative changes in the lumbar spine EEG 2.5 hr 08/25/22: Mod-severe diffuse cerebral dysfunction MRI Brain 08/28- numerous white matter changes. Procedures: Art and central line 08/21/22 LP 08/25/22 Subjective: Patient seen and examined at bedside. No acute events overnight. He denies any chest pain, shortness of breath, headache, nausea, vomiting, diarrhea, constipation, abdominal pain, or urinary complaints. Pertinent positives and negatives as discussed above, a complete review of systems was performed and all other systems are negative. Vitals Signs Reviewed. General: nontoxic, no distress, appears at stated age Derm: warm, dry Head: atraumatic, normocephalic, symmetric Eyes: EOMI, no lid lag, anicteric sclera Mouth: no lip lesion, mucus membranes moist Cardiovascular: S1S2 reg, no murmur, positive posterior tibial pulse bilateral, Lungs: CTA bilateral, no rhonchi, no rales , no accessory muscle use Abdominal: soft, nontender to palpation, no guarding, no appreciable organomegaly Ext: no gross muscle atrophy, no edema, no contractures Neuro: CN II-XI grossly intact, no focal neuro deficits Psych: Alert, oriented, appropriate affect Assessment and Plan: Pyrexia, now improved Bacterial pneumonia, right upper and middle lobe - Repeat blood cultures negative - echo does not show any vegetation -Lower extremity Dopplers negative for DVT -Per nephrology, meningoencephalitis still possibility given clinical improvement on ceftriaxone and IV acyclovir. 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 however, sputum culture also showing staph -Patient currently on ceftriaxone, repeat blood cultures no growth to date - cefazloin 08/21, 08/25-, 08/28 - Vanco 08/17, 08/18. 08/21-08/27 - rocephin 08/26, 08/27 A. fib with RVR status post cardioversion preformed in the ED Elevated troponin due to deman ischemic -Cardiology signed off , no recurrence of A fib this hospital stay. - consider outpatient follow-up - CHADSVASC 1, ASA recommended Severe Protein calorie malnutrition - dietitian recs - encourage oral intake Resolved: Acute hypoxic and hypercapnic respiratory failure status post intubation Shock, hypovolemic High anion gap metabolic acidosis secondary to Severe lactic acidosis Acute kidney injury Severe hyperphosphatemia Severe hypokalemia GI bleed Hypomagnesemia Thrombocytopenia Transaminitis, resolved Hx: TBI, craniotomy ETOH dependency HTN HLD DVT ppx: Lovenox Code status: Full code Anticipated discharge place: Pending clinical course, likely discharge home with home care, likely IV antibiotics given bacteremia Anticipated discharge time: Pending clinical course Objective - Vital Signs Vital signs: Vital Signs Temp 97.5 F L 08/30/22 07:26 Pulse 83 08/30/22 07:26 Resp 18 08/30/22 07:26 BP 134/77 08/30/22 07:26 Pulse Ox 94 L 08/30/22 08:49 FiO2 35 08/26/22 08:00 Intake & Output 08/29/22 08/30/22 08/30/22 18:59 06:59 18:59 Intake Total 472 Output Total 1035 800 150 Balance -563 -800 -150 Weight 51 kg 83.4 kg Intake: Oral 472 Output: Urine 1035 800 150 Uretheral (Grijalva) 610 Other: Voiding Method Indwelling Catheter Urinal Urinal # Voids 1 ABP, PAP, CO, CI - Last Documented Arterial Blood Pressure 83/66 - Labs CBC & Chem 7: 08/30/22 05:40 08/30/22 05:40 Labs: Abnormal Lab Results - Last 24 Hours (Table) 08/30/22 08/30/22 Range/Units 05:40 05:40 RBC 3.39 L (4.40-5.60) X 10*6/uL Hgb 10.2 L (13.0-17.0) g/dL Hct 31.5 L (39.6-50.0) % BUN 5.2 L (9.0-27.0) mg/dL BUN/Creatinine Ratio 7.43 L (12.00-20.00) Ratio Calcium 7.9 L (8.7-10.3) mg/dL AST 47 H (14-35) U/L C-Reactive Protein 6.80 H (0.00-0.80) mg/dL Total Protein 5.2 L (6.2-8.2) g/dL Albumin 2.8 L (3.8-4.9) g/dL Albumin/Globulin Ratio 1.17 L (1.60-3.17) g/dL Microbiology - Last 24 Hours (Table) 08/29/22 11:30 Catheter Tip Culture - Preliminary Catheter Tip 08/29/22 09:23 Blood Culture - Preliminary Blood No Growth after 24 hours 08/28/22 16:20 Blood Culture - Preliminary Blood No Growth after 24 hours
[2022-08-31] MEDS: PANTOPRAZOLE 40 MG/10 ML VIAL IVP SCH ×2 (08:45→21:37)
[2022-08-31] MEDS: ASPIRIN 81 MG PO SCH (09:57)
[2022-08-31] MEDS: METOPROLOL TARTRATE 25 MG TAB PO SCH ×2 (09:57→21:37)
[2022-08-31] MEDS: levETIRAcetam IV 1,000 MG in SALINE 1 100ML.BAG IVPB SCH (09:57)
[2022-08-31] MEDS: ENOXAPARIN 40 MG/0.4 ML SYRINGE SQ SCH (09:57)
[2022-08-31] MEDS: THIAMINE 100 MG in SODIUM CHLORIDE 0.9% 50 ML IVPB SCH (10:59)
--- NOTE | 2022-08-31 12:03 | P.PN ---
Subjective Progress Note Date: 08/31/22 The patient seen at bedside in accompanied by his friend. He sitting in a recliner chair and states he is doing drastically better compared to his initial presentation and his friend agrees. According to the patient is seems that he had multiple spinal surgery he initially had spinal surgery after a fall in 2016 and it was in the cervical region and then it seems that the he was having left upper extremity weakness that was continued and he had further surgery but the patient states that that he continues to have left the neck pain with continued left upper extremity weakness and that is chronic. Objective - Vital Signs Vital signs: Vital Signs Temp 98.4 F 08/31/22 07:18 Pulse 75 08/31/22 08:58 Resp 16 08/31/22 08:58 BP 151/78 08/31/22 07:18 Pulse Ox 91 L 08/31/22 07:44 FiO2 35 08/26/22 08:00 Intake & Output 08/30/22 08/31/22 08/31/22 18:59 06:59 18:59 Output Total 650 Balance -650 Weight 83.4 kg 82.4 kg Output: Urine 650 Other: Voiding Method Urinal Urinal # Voids 3 ABP, PAP, CO, CI - Last Documented Arterial Blood Pressure 83/66 - Exam GENERAL: The patient is lying in bed and is not in acute distress. NEUROLOGICAL: Higher mental function: The patient is awake,alert, oriented to self, place and time. Patient is following commands. No aphasia and no neglect. Cranial nerves: The pupils are round, equal and reactive to light. Visual bae are full to confrontation throughout. Extraocular movement is intact no nystagmus is noted. The facial strength is normal throughout. Tongue is midline and moved [id number] without any difficulty. No dysarthria is noted. Shoulder shrug is normal bilaterally. Motor: The strength is left hand shaper and presser is 4+ with atrophy in the first FDI on left and distal left upper is 4+. Otherwise 5 over 5 throughout. Normal tone and bulk. Cerebellum: Normal finger to nose bilaterally. Sensation: Sensation is normal to touch throughout. SOME OF THE WORK-UP DURING THIS HOSPITAL VISIT CONSISTED OF: * Repeat CT head 08/22/2022 revealed previous surgery. Mild atrophy, no acute intracranial process. I personally reviewed CT head, agree with the findings. * CTA reported as negative of the brain. Mild plaque at the carotid artery bifurcation. No evidence of hemodynamic arterial stenosis in the neck. * Initial EEG 08/19/2022 was abnormal due to amplitude asymmetry with relatively higher amplitude activity in the left frontoparietal region due to breach rhythm from previous craniotomy defect. Background slowing of moderate to severe degree, consistent with generalized cerebral dysfunction, as can be seen with toxic metabolic encephalopathy or due to diffuse structural brain abnormality. Clinical correlation is recommended. No epileptiform activity was seen. * B12 2102, folate 12.90, TSH slightly decreased 0.220, with normal free T4 1.37. Possible due to sick euthyroid. * MRI of the brain is reported as numerous white matter foci the are nonspecific and could relate to demyelinating disease or microvascular ischemia. No evidence of acute cortical infarct. No evidence of intracranial mass. I personally reviewed that imaging with Dr. Pimentel and the was felt the patient has left hemispheric pachymeningeal enhancement and possible old subdural over the left. I spoke with Dr. Wright (reading radiologist) on 08/30 regarding his MRI Brain and he feels the pachymeningeal enhancement on the left with fluid c ollection on the left side behind skull and these finding can still occur since old surgical resection but clinically correlate. - Labs CBC & Chem 7: 08/30/22 05:40 08/30/22 05:40 Labs: Microbiology - Last 24 Hours (Table) 08/29/22 09:23 Blood Culture - Preliminary Blood No Growth after 48 hours 08/28/22 16:20 Blood Culture - Preliminary Blood No Growth after 48 hours 08/29/22 11:30 Catheter Tip Culture - Preliminary Catheter Tip Assessment and Plan Assessment: * Confusion with continued fevers and I felt the CSF study even though was traumatic but the calculated nucleated cells were still elevated and was on antibiotic for few days prior to CSF study is concerning for meningoencephalitis. Blood culture and sputum is staph but there is concern for ?contaminant---confused has improved * New onset rhythmic twitching of the shoulders bilaterally and some upper limbs, probably myoclonic jerks, unlikely to be seizures. EEG did not reveal any epileptiform activity. No status epilepticus---confusion has drastically improved * Patient presented with unresponsiveness. * Acute kidney injury, now resolved * Status post shock, likely hypovolemic--resolved * History of traumatic brain injury with subdural hematoma, status post craniotomy in 2016 * Left cervical radiculopathy. Has prior neck surgery and multiple spinal surgery but continues to have weakness in left upper extremity * History of alcoholism. * Atrial fibrillation with RVR, status post cardioversion Plan: * CSF revealed bloody, red, r[place] csf 34227, normal glucose 69, CSF protein 57(12- 60), WBC count 160, polynuclear 77%, mononuclear cells 18%, eosinophils 5%, . The corrected nucleated cells is 80 cells (for every 1 nucleated cells is 500-1000rbc). 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 Possibly more encephalitis since glucose and protein normal but cannot rule out meningitis since CSF was done later and was on antibiotic. MRI of the brain is reported as numerous white matter foci the are nonspecific and could relate to demyelinating disease or microvascular ischemia. No evidence of acute cortical infarct. No evidence of intracranial mass. I spoke with Dr. Wright (reading radiologist) on 08/30 regarding his MRI Brain and he feels the pachymeningeal enhancement on the left with fluid collection on the left side behind skull and these finding can still occur since old surgical resection but clinically correlate. * On Ceftriaxone 2gm every 12 hours and on IV Acyclovir 850mg every 8 hours. Will defer modification of medication to I.D. team and they discontinued Acyclovir. Clinically he is doing better with these medications and no further fevers since 08/28. * Patient had a prolonged, 2.5 hour EEG performed 08/23/2022. According to preliminary report from Dr. Lopez, did not reveal any epileptiform activity. Some triphasic waves are seen. No status epilepticus. Official report pending. We will continue Keppra 1000 mg twice a day for possible seizure-like activity. I will go down to Keppra 500mg 1 tab bid * Likely had decondition from his prolonged ICU was immobile but improving * He is to follow up with a neurosurgeon as an outpatient for his continued left upper extremity weakness and it seems she had the continued left cervical radiculopathy with multiple surgeries in the past. Patient stated that he had 2 EMGs at in the past. * Primary is getting further investigation for his continued fevers. I.D. is on board. The plan is discussed in detailed with patient and primary team. No further neurological work-up but will continue to follow. Time with Patient: Less than 30
--- NOTE | 2022-08-31 12:24 | P.PN ---
Subjective Progress Note Date: 08/31/22 Principal diagnosis: Fever and bacteremia Patient is a 57 year old male with a past medical history significant for alcohol dependence/abuse history of atrial fibrillation patient was brought to the hospital on 08/16/2022 for evaluation of mental status changes patient presented to the hospital and was hypotensive A. fib with RVR patient got intubated and cardioverted, patient did have evidence of MSSA bacteremia sputum was also positive for the same pathogen subsequently has been running a fever did have a repeat which was traumatic Elevated white count but glucose protein normal. on today's evaluation that is 08/31/2022, the patient remains to be afebrile, the patient is breathing comfortably on room air patient denies any headache , the patient denies chest pain shortness of breath occasional dry cough , no abdominal pain, the patient diarrhea has resolved and no urinary symptoms Objective - Vital Signs Vital signs: Vital Signs Temp 98.4 F 08/31/22 07:18 Pulse 75 08/31/22 08:58 Resp 16 08/31/22 08:58 BP 151/78 08/31/22 07:18 Pulse Ox 91 L 08/31/22 07:44 FiO2 35 08/26/22 08:00 Intake & Output 08/30/22 08/31/22 08/31/22 18:59 06:59 18:59 Output Total 650 Balance -650 Weight 83.4 kg 82.4 kg Output: Urine 650 Other: Voiding Method Urinal Urinal # Voids 3 ABP, PAP, CO, CI - Last Documented Arterial Blood Pressure 83/66 - Exam GENERAL DESCRIPTION: A middle-aged male lying in bed in no distress RESPIRATORY SYSTEM: Unlabored breathing , decreased breath sounds at bases HEART: S1 S2 regular rate and rhythm , ABDOMEN: Soft , no tenderness EXTREMITIES: No edema feet - Labs CBC & Chem 7: 08/30/22 05:40 08/30/22 05:40 Labs: Microbiology - Last 24 Hours (Table) 08/28/22 16:20 Blood Culture - Preliminary Blood No Growth after 48 hours 08/29/22 11:30 Catheter Tip Culture - Preliminary Catheter Tip 08/29/22 09:23 Blood Culture - Preliminary Blood No Growth after 24 hours Assessment and Plan (1) Bacteremia Current Visit: Yes Status: Acute Code(s): R78.81 - BACTEREMIA SNOMED Code(s): 4434416 (2) Fever Current Visit: Yes Status: Acute Code(s): R50.9 - FEVER, UNSPECIFIED SNOMED Code(s): 971645992 Plan: 1patient with abnormal CSF which is mostly a traumatic tap with more than 40,000 RBC white count is still symptomatic elevated however the patient did have a normal glucose and protein the patient currently denies having any headache and he is aware that he is at [facility] all these factors will go against meningitis or encephalitis 2patient now to have a fever in this patient who did have a positive blood as well as sputum culture for MSSA and did have evidence of a left-sided effusion question of possible pulmonary source/empyema, in addition patient also having diarrhea with fecal management system , stool for C. diff negative 3there was a question of possible meningeal enhancement on the MRI which was not reported on the official MRI plus the patient did have a normal protein and glucose my clinic suspicious for meningitis remains to be low in this patient currently with no headache, patient echocardiogram was negative for any vegetation, CT of the chest is concerning for pneumonia patient will continue with the Rocephin may benefit from a short course of IV antibiotic on discharge because of his bacteremia, discussed with the admitting team Time with Patient: Less than 30
--- NOTE | 2022-08-31 12:44 | P.PN ---
Subjective Progress Note Date: 08/31/22 Hospital Course: Patient is a 57-year-old male with history of alcohol dependence/abuse, atrial fibrillation who presented with altered mentation and possible code stroke. On arrival, patient was hemodynamically unstable, in A. fib with RVR, he was intubated and cardioverted to normal sinus rhythm. CT had showed no acute process, interventional neurology highway traffic control technician did not recommend to give alteplase. Reportedly, patient has been binge drinking, his last drink was on August 11. Per family patient was vomiting prior to becoming unresponsive. His initial labs were consistent with severe dehydration, pH of 7.13, potassium 2.7, creatinine of 3.66, lactic acid of 12.4, mild transaminitis, mild elevated troponin, urine tox positive for benzos and marijuana. He was admitted There w as also concern for possible GI bleed, patient on IV Protonix, surgery following a hemoglobin stable. Nephrology and ICU also following. LP with traumatic tap, patient was started on vanco and rocephin and ID was consulted. Patient was extubated on 08/26/22. Sensorium has cleared. He had continued fevers. Now has been afebrile for a few days. Pending discharge on Friday with PICC and IV abx. Imaging: Head CT 08/16/22: mild cerebral atrophy CT angio head and neck 08/16/22: negatvive CT chest/abd/pelvis 08/16/22: no significant abnormality US abd/bladder 08/17/22: no hydro EEG 08/19/22: abnormal due to asymetry and background slowing Head CT 08/21/22: prior surgery, mild atrophy EEG 08/22/22: abnormal due to asymmery and sporadic sharp waves Lumbar spine CT 08/25/22: Hypertrophic degenerative changes in the lumbar spine EEG 2.5 hr 08/25/22: Mod-severe diffuse cerebral dysfunction MRI Brain 08/28- numerous white matter changes. Procedures: Art and central line 08/21/22 LP 08/25/22 Subjective: Patient seen and examined at bedside. No acute events overnight. He denies any chest pain, shortness of breath, headache, nausea, vomiting, diarrhea, constipation, abdominal pain, or urinary complaints. Pertinent positives and negatives as discussed above, a complete review of systems was performed and all other systems are negative. Vitals Signs Reviewed. General: nontoxic, no distress, appears at stated age Derm: warm, dry Head: atraumatic, normocephalic, symmetric Eyes: EOMI, no lid lag, anicteric sclera Mouth: no lip lesion, mucus membranes moist Cardiovascular: S1S2 reg, no murmur, positive posterior tibial pulse bilateral, Lungs: CTA bilateral, no rhonchi, no rales , no accessory muscle use Abdominal: soft, nontender to palpation, no guarding, no appreciable organome deven Ext: no gross muscle atrophy, no edema, no contractures Neuro: CN II-XI grossly intact, no focal neuro deficits Psych: Alert, oriented, appropriate affect Assessment and Plan: Pyrexia, now improved Bacterial pneumonia, right upper and middle lobe - Repeat blood cultures negative - echo does not show any vegetation -Lower extremity Dopplers negative for DVT -Per nephrology, meningoencephalitis still possibility given clinical improvement on ceftriaxone -Repeat CT chest showed right upper and right middle lobe opacity concerning for pneumonia 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 however, sputum culture also showing staph -Patient currently on ceftriaxone, repeat blood cultures no growth to date - cefazloin 08/21, 08/25-, 08/28 - Vanco 08/17, 08/18. 08/21-08/27 - rocephin 08/26, 08/27 A. fib with RVR status post cardioversion preformed in the ED Elevated troponin due to deman ischemic -Cardiology signed off , no recurrence of A fib this hospital stay. - consider outpatient follow-up - CHADSVASC 1, ASA recommended Severe Protein calorie malnutrition - dietitian recs - encourage oral intake Resolved: Acute hypoxic and hypercapnic respiratory failure status post intubation Shock, hypovolemic High anion gap metabolic acidosis secondary to Severe lactic acidosis Acute kidney injury Severe hyperphosphatemia Severe hypokalemia GI bleed Hypomagnesemia Thrombocytopenia Transaminitis, resolved Hx: TBI, craniotomy ETOH dependency HTN HLD DVT ppx: Lovenox Code status: Full code Anticipated discharge place: Pending clinical course, likely discharge home with home care, likely IV antibiotics given bacteremia Anticipated discharge time: Pending clinical course Objective - Vital Signs Vital signs: Vital Signs Temp 98.4 F 08/31/22 07:18 Pulse 75 08/31/22 08:58 Resp 16 08/31/22 08:58 BP 151/78 08/31/22 07:18 Pulse Ox 91 L 08/31/22 07:44 FiO2 35 08/26/22 08:00 Intake & Output 08/30/22 08/31/22 08/31/22 18:59 06:59 18:59 Output Total 650 Balance -650 Weight 83.4 kg 82.4 kg Output: Urine 650 Other: Voiding Method Urinal Urinal # Voids 3 ABP, PAP, CO, CI - Last Documented Arterial Blood Pressure 83/66 - Labs CBC & Chem 7: 08/30/22 05:40 08/30/22 05:40 Labs: Microbiology - Last 24 Hours (Table) 08/29/22 09:23 Blood Culture - Preliminary Blood No Growth after 48 hours 08/28/22 16:20 Blood Culture - Preliminary Blood No Growth after 48 hours 08/29/22 11:30 Catheter Tip Culture - Preliminary Catheter Tip
--- NOTE | 2022-08-31 12:55 | P.PN ---
Subjective Progress Note Date: 08/31/22 Principal diagnosis: Respiratory failure. Reevaluated today on , patient remains in the ICU, intubated mechanically ventilated. He is on assist control rate of 18 tidal volume 450 FiO2 35% PEEP of 5 ABG showed a pO2 of 100 pCO2 44 pH of 7.46. His FiO2 was cut down to 35%. Patient continued to have intermittent episodes of seizure-like activities or possibly myoclonic jerks affecting his upper body and upper extremities, with deviation of his eyes with upward gaze. Neurology on the case loaded up with Dilantin yesterday, and he is on Keppra today. Although his EEG according to the neurologist did not show any evidence of seizure activity. Patient to be seen again by neurology today, and decide whether to continue with seizure medications he did receive Dilantin 1 dose yesterday, and he is now on Keppra 1 g twice a day. Early this morning patient had an EEG which is yet to be interpreted by the neurologist. In the meantime the patient is on propofol at 20 mcg/kg/m, Versed 3 mg/h, D5 4 5 at 50 mL per hour and is on vital AF at 30 mL per hour. Unable to cut down on his sedation at this point mostly because of these episodic seizure-like activities or possibly myoclonic jerks. Chest x-ray today showed small left pleural effusion not large enough to consider thoracentesis. His WBC count is 11.5 hemoglobin is 12.1. Basic metabolic profile and renal profile are normal Patient was reevaluated today on 08/24/22, remains in the ICU intubated and mechanically ventilated, he is tidal volume 450 assist-control rate of 18FiO2 is down to 35%, PEEP is 5. ABG showed a pO2 of 110 pCO2 of 44 pH of 7.45, hence no changes were made in the ventilator settings. Neurologically the patient is about the same, continues to have these episodes of myoclonic-like jerks, remains on propofol at 25 mcg/kg/m, remains on Versed at 6 mg/h, patient is supposedly scheduled to have a lumbar puncture done today. Chest x-ray continues to show a small left pleural effusion, otherwise is unremarkable. Labs were all reviewed and they seem to be relatively unremarkable. Again the only reason the patient could not be extubated to mostly because of his neurological status at this point.CBC is relatively normal ABG as noted above. Basic metabolic profile is relatively. Renal profile is normal. Patient is receiving vital AF at 40 mL per hour. Patient remains on GI and DVT prophylaxis Reevaluated today on 08/25/22, patient remains in the ICU, intubated and mechanically ventilated. He is on assist control rate of 18 tidal volume 450 FiO2 35% PEEP of 5. Remains on propofol at 40 mcg/kg/m is also on Versed 1 mg/h. And he is receiving vital AF at 58 mL per hour. No major issues over the last 24 hours, patient seems to be quite sedated with the propofol and Versed. I plan to lower the dose of propofol, and hopefully get to assess mental status today. I could not awaken the patient today to assess mental status, hence I recommended propofol to be cut down significantly and assess mental status RBC the patient not quite ready for any weaning trials. Chest x-ray showed small left pleural effusion, otherwise basically unremarkable. Patient remains on vancomycin for his MSSA, hence I will go back and switch him to 2 g IV piggyback every 8 hours. Labs today showed a relatively normal CBC, normal basic metabolic profile, his spinal fluid results, initial report seems to be unremarkable, however the spinal fluid was obviously bloody and was traumatic. Whether the patient will need a repeat CT of the brain again because of his bloody spinal fluid, that will be decided upon by neurology on the case. Lumbar spine CT showed no evidence of epidural hematoma. Progress note dated 08/26/2022. The patient is seen in the intensive care unit, room 252. He was admitted on August 16 with mental status changes, and acute kidney injury. The patient remains on the mechanical ventilator. Ventilator settings include the volume assist control, rate 18, tidal volume 450, FiO2 35%, and PEEP of 5. Blood gases show pO2 of 99, pCO2 39, pH is 7.48. The patient's on propofol at 25 mcg/kg/m, D5 half-normal saline at 50 mL an hour, and vital AF at 48 mL an hour, which is goal. The patient will get Lasix 40 mg IV push. We will attempt a daily interruption of sedation and a spontaneous breathing trial. The patient appears much more awake and alert today. White count 8, hemoglobin 11.5, hematocrit 34.9, with a normal platelet count. Sodium 144, potassium 3.6, chlorides 114, CO2 28, BUN 13, creatinine 0.65. Blood cultures show staph aureus and staph epidermidis, and sputum samples are positive for Staphylococcus aureus. The patient's chest x-ray shows a small left-sided pleural effusion. Progress note dated 08/27/2022. The patient is again seen in the intensive care unit, room 252. The patient was extubated yesterday. He's currently on 3 L of oxygen. He is getting dextrose with half-normal saline at 50 mL an hour. He is much more awake and alert. He was started on acyclovir, Rocephin, and vancomycin. The Protonix can be converted to by mouth. The hospital service did consult infectious diseases. White count 13, hemoglobin 10.9, hematocrit 32.4, with a normal platelet count. Sodium 139, potassium 3.4, chlorides 110, CO2 27, BUN 12, creatinine 0.67. Blood and sputum samples were positive for Staphylococcus aureus. Chest x-ray shows some mild fluid overload, likely as a result of extubation. Progress note dated 08/28/2022. 57-year-old male again seen in room 252 in the intensive care unit. The patient is doing much better. He is on 3 L. He is fully awake and alert. Half-normal saline at 50 mL an hour. Per infectious diseases, he continues on Ancef and acyclovir. The patient can be transferred to the general medical floor without telemetry. We'll DC his IV, and his arterial line. White count 9.3, hemoglobin 11.1, hematocrit 33.4, and platelet count 204,000. Sodium 139, potassium 3.1, chlorides 109, CO2 26, BUN 9, and creatinine 0.62. Albumin is 2.5. Progress note dated 08/29/2022. 57-year-old male who was transferred out of the intensive care unit, and is seen today, in room 484. Currently, the patient's on room air. He's getting saline at 20 mL an hour, which can be discontinued. Also, the central line can be removed. Labs today include a white count 7.6, hemoglobin 11.1, hematocrit 32.6, and a normal platelet count. Sodium 140, potassium 3.1, chlorides 108, CO2 27, BUN 9, creatinine 0.68. Progress note dated 08/31/2022. 57-year-old male seen in room 484. The patient's doing well. He is currently on room air. From our perspective, the patient could be considered for possible discharge. According to the patient, he is to have a PICC line placed, and he will be discharged until Friday. No new labs today as yet. Labs from August 30 are reviewed. Computed tomography scan of the chest reveals a patchy infiltrate, in the right upper lobe/right middle lobe. Objective - Vital Signs Vital signs: Vital Signs Temp 98.4 F 08/31/22 07:18 Pulse 75 08/31/22 08:58 Resp 16 08/31/22 08:58 BP 151/78 08/31/22 07:18 Pulse Ox 91 L 08/31/22 07:44 FiO2 35 08/26/22 08:00 Intake & Output 08/30/22 08/31/22 08/31/22 18:59 06:59 18:59 Output Total 650 Balance -650 Weight 83.4 kg 82.4 kg Output: Urine 650 Other: Voiding Method Urinal Urinal # Voids 3 ABP, PAP, CO, CI - Last Documented Arterial Blood Pressure 83/66 - Exam No acute distress, awake and alert, currently on room air. Mental status is back to normal. HEENT examination is grossly unremarkable. Neck supple. Full range of motion. No adenopathy thyromegaly or neck vein distention. Cardiovascular examination reveals regular rhythm rate. S1-S2 normal. No S3 or S4. No discernible murmur noted. Heart rate 75 bpm. Lungs reveal mostly clear breath sounds. Minimal rhonchi. No wheezes or crackles. Room air saturation is 94 %. Abdomen soft bowel sounds are heard. No masses or tenderness. Extremities are intact. No cyanosis clubbing or edema. Skin is without rash or lesion. Neurologic examination is brief but nonfocal. - Labs CBC & Chem 7: 08/30/22 05:40 08/30/22 05:40 Labs: Microbiology - Last 24 Hours (Table) 08/29/22 09:23 Blood Culture - Preliminary Blood No Growth after 48 hours 08/28/22 16:20 Blood Culture - Preliminary Blood No Growth after 48 hours 08/29/22 11:30 Catheter Tip Culture - Preliminary Catheter Tip Assessment and Plan Assessment: Acute respiratory failure, with intubation on August 16, secondary to patient's inability to protect his airway. The patient was successfully extubated on 08/26/2022. Acute mental status changes, much improved. Possible recurrent seizures. Methicillin sensitive Staphylococcus aureus bacteremia/pneumonia. Severe lactic acidosis, resolved. Hypovolemic hypotension, resolved. Anion gap metabolic acidosis. History of alcohol abuse. Acute kidney injury. History of paroxysmal atrial fibrillation. Hypertension. Hyperlipidemia. Plan: Plan dated 08/26/2022. The patient will get Lasix 40 mg IV push. The patient was placed on pressure support of 5 and CPAP of 5. The patient's respiratory rate is low, and tidal volumes are excellent. Minute volume is low. The patient will have a cuff leak test, and likely be extubated. Additional recommendations and suggestions are forthcoming. Prognosis is guarded. Labs, x-rays, medications are reviewed. We will continue to follow the patient and make recommendations along the way. Plan dated 08/27/2022. The patient was successfully extubated August 26. The patient is currently on acyclovir, we will continue to follow the patient and make recommendations along the way. Prognosis is guarded. Labs, x-rays, and medications are all reviewed. Infectious disease training consultant was asked to see the patient. The patient's Protonix chemically converted to by mouth. Additional recommendations and suggestions are forthcoming. Plan dated 08/28/2022. The patient was successfully extubated on August 26. Over the last 2 days, his neurologic status is greatly improved. The patient could be transferred to the general medical floor without telemetry. We'll DC his IV fluids, and DC his arterial line. He remains on Ancef, and acyclovir. Labs, x-rays, and medications are reviewed. Prognosis is guarded. Plan dated 08/29/2022. The patient's MRI of the brain is reviewed. Nothing acute. No evidence of intracranial mass. No evidence of acute cortical infarct. Labs, x-rays, and medications are reviewed. IV can be discontinued. He's currently on room air. His mental status is much improved. He continues on acyclovir, and Ancef. Additional recommendations and suggestions are forthcoming. Prognosis is guarded. We will continue to follow make recommendations along the way. Plan dated 08/31/2022. The patient has been on antibiotics for quite some time. Apparently the plan according to the patient and infectious diseases, is to have a PICC line placed on Friday, and the patient will be discharged sometime on Friday. Standpoint, the patient's doing well. Moving forward, since the patient's not having any respiratory issues, therefore, we will see the patient only as needed. Time with Patient: Less than 30
[2022-08-31] MEDS: levETIRAcetam 500 MG TAB PO SCH (21:37)
[2022-09-01] MEDS: METOPROLOL TARTRATE 25 MG TAB PO SCH ×2 (08:53→20:24)
[2022-09-01] MEDS: ASPIRIN 81 MG PO SCH (08:53)
[2022-09-01] MEDS: THIAMINE 100 MG TAB PO SCH (08:53)
[2022-09-01] MEDS: levETIRAcetam 500 MG TAB PO SCH (08:53)
[2022-09-01] MEDS: ENOXAPARIN 40 MG/0.4 ML SYRINGE SQ SCH (08:55)
[2022-09-01] MEDS: PANTOPRAZOLE 40 MG/10 ML VIAL IVP SCH ×2 (08:55→20:23)
--- NOTE | 2022-09-01 12:04 | P.PN ---
Subjective Progress Note Date: 09/01/22 Hospital Course: Patient is a 57-year-old male with history of alcohol dependence/abuse, atrial fibrillation who presented with altered mentation and possible code stroke. On arrival, patient was hemodynamically unstable, in A. fib with RVR, he was intubated and cardioverted to normal sinus rhythm. CT had showed no acute process, interventional neurology wheelchair van operator first responder did not recommend to give alteplase. Reportedly, patient has been binge drinking, his last drink was on August 11. Per family patient was vomiting prior to becoming unresponsive. His initial labs were consistent with severe dehydration, pH of 7.13, potassium 2.7, creatinine of 3.66, lactic acid of 12.4, mild transaminitis, mild elevated troponin, urine tox positive for benzos and marijuana. He was admitted There w as also concern for possible GI bleed, patient on IV Protonix, surgery following a hemoglobin stable. Nephrology and ICU also following. LP with traumatic tap, patient was started on vanco and rocephin and ID was consulted. Patient was extubated on 08/26/22. Sensorium has cleared. He had continued fevers. Now has been afebrile for a few days. Pending discharge on Friday with PICC and IV abx. Imaging: Head CT 08/16/22: mild cerebral atrophy CT angio head and neck 08/16/22: negatvive CT chest/abd/pelvis 08/16/22: no significant abnormality US abd/bladder 08/17/22: no hydro EEG 08/19/22: abnormal due to asymetry and background slowing Head CT 08/21/22: prior surgery, mild atrophy EEG 08/22/22: abnormal due to asymmery and sporadic sharp waves Lumbar spine CT 08/25/22: Hypertrophic degenerative changes in the lumbar spine EEG 2.5 hr 08/25/22: Mod-severe diffuse cerebral dysfunction MRI Brain 08/28- numerous white matter changes. Procedures: Art and central line 08/21/22 LP 08/25/22 Subjective: Patient seen and examined at bedside. No acute events overnight. He denies any chest pain, shortness of breath, headache, nausea, vomiting, diarrhea, constipation, abdominal pain, or urinary complaints. Pertinent positives and negatives as discussed above, a complete review of systems was performed and all other systems are negative. Vitals Signs Reviewed. General: nontoxic, no distress, appears at stated age Derm: warm, dry Head: atraumatic, normocephalic, symmetric Eyes: EOMI, no lid lag, anicteric sclera Mouth: no lip lesion, mucus membranes moist Cardiovascular: S1S2 reg, no murmur, positive posterior tibial pulse bilateral, Lungs: CTA bilateral, no rhonchi, no rales , no accessory muscle use Abdominal: soft, nontender to palpation, no guarding, no appreciable organome deven Ext: no gross muscle atrophy, no edema, no contractures Neuro: CN II-XI grossly intact, no focal neuro deficits Psych: Alert, oriented, appropriate affect Assessment and Plan: Pyrexia, now improved Bacterial pneumonia, right upper and middle lobe - Repeat blood cultures negative - echo does not show any vegetation -Lower extremity Dopplers negative for DVT -Per nephrology, meningoencephalitis still possibility given clinical improvement on ceftriaxone, and acyclovir -Repeat CT chest showed right upper and right middle lobe opacity concerning for pneumonia 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 however, sputum culture also showing staph -Patient currently on ceftriaxone, repeat blood cultures no growth to date - cefazloin 08/21, 08/25-, 08/28 - Vanco 08/17, 08/18. 08/21-08/27 - rocephin 08/26, 08/27 A. fib with RVR status post cardioversion preformed in the ED Elevated troponin due to deman ischemic -Cardiology signed off , no recurrence of A fib this hospital stay. - consider outpatient follow-up - CHADSVASC 1, ASA recommended Severe Protein calorie malnutrition - dietitian recs - encourage oral intake Resolved: Acute hypoxic and hypercapnic respiratory failure status post intubation Shock, hypovolemic High anion gap metabolic acidosis secondary to Severe lactic acidosis Acute kidney injury Severe hyperphosphatemia Severe hypokalemia GI bleed Hypomagnesemia Thrombocytopenia Transaminitis, resolved Hx: TBI, craniotomy ETOH dependency HTN HLD DVT ppx: Lovenox Code status: Full code Anticipated discharge place: Pending clinical course, likely discharge home with home care, likely IV antibiotics given bacteremia Anticipated discharge time: Pending clinical course Objective - Vital Signs Vital signs: Vital Signs Temp 97.7 F 09/01/22 07:30 Pulse 87 09/01/22 08:00 Resp 16 09/01/22 08:00 BP 137/83 09/01/22 07:30 Pulse Ox 94 L 09/01/22 07:30 FiO2 35 08/26/22 08:00 Intake & Output 08/31/22 09/01/22 09/01/22 18:59 06:59 18:59 Intake Total 320 Output Total 350 Balance 320 -350 Weight 79.4 kg Intake: IV 270 .9 @ 10 120 Thiamine 100 mg In Sodium 50 Chloride 0.9% 50 ml @ 100 mls/hr IVPB Q24HR [facility] Rx#:[id number] levETIRAcetam IV 1,000 mg 100 In Saline 1 100ml.bag @ 400 mls/hr IVPB Q12HR [facility] Rx#:[id number] Intake, IV Titration 50 Amount cefTRIAXone 2 gm In 50 Sodium Chloride 0.9% 50 ml @ 100 mls/hr IVPB Q12HR [facility] Rx#:[id number] Output: Urine 350 Other: Voiding Method Urinal Toilet Toilet Urinal Urinal ABP, PAP, CO, CI - Last Documented Arterial Blood Pressure 83/66 - Labs CBC & Chem 7: 08/30/22 05:40 08/30/22 05:40 Labs: Microbiology - Last 24 Hours (Table) 08/29/22 09:23 Blood Culture - Preliminary Blood No Growth after 72 hours 08/28/22 16:20 Blood Culture - Preliminary Blood No Growth after 72 hours 08/29/22 11:30 Catheter Tip Culture - Final Catheter Tip
--- NOTE | 2022-09-01 14:48 | P.PN ---
Subjective Progress Note Date: 09/01/22 The patient is seen at bedside and sitting at side of bed and is accompanied by his daughter. He feels he continue to feel drastically better and now walking with a cane rather than a walker since improving. Denies of headache, further focal weakness. Objective - Vital Signs Vital signs: Vital Signs Temp 98.1 F 09/01/22 14:07 Pulse 79 09/01/22 14:07 Resp 18 09/01/22 14:07 BP 109/66 09/01/22 14:07 Pulse Ox 93 L 09/01/22 14:07 FiO2 35 08/26/22 08:00 Intake & Output 08/31/22 09/01/22 09/01/22 18:59 06:59 18:59 Intake Total 320 Output Total 350 Balance 320 -350 Weight 79.4 kg Intake: IV 270 .9 @ 10 120 Thiamine 100 mg In Sodium 50 Chloride 0.9% 50 ml @ 100 mls/hr IVPB Q24HR [facility] Rx#:[id number] levETIRAcetam IV 1,000 mg 100 In Saline 1 100ml.bag @ 400 mls/hr IVPB Q12HR [facility] Rx#:[id number] Intake, IV Titration 50 Amount cefTRIAXone 2 gm In 50 Sodium Chloride 0.9% 50 ml @ 100 mls/hr IVPB Q12HR [facility] Rx#:[id number] Output: Urine 350 Other: Voiding Method Urinal Toilet Toilet Urinal Urinal ABP, PAP, CO, CI - Last Documented Arterial Blood Pressure 83/66 - Exam GENERAL: The patient is lying in bed and is not in acute distress. NEUROLOGICAL: Higher mental function: The patient is awake,alert, oriented to self, place and time. Patient is following commands. No aphasia and no neglect. Cranial nerves: The pupils are round, equal and reactive to light. Visual bae are full to confrontation throughout. Extraocular movement is intact no nystagmus is noted. The facial strength is normal throughout. Tongue is midline and moved [id number] without any difficulty. No dysarthria is noted. Shoulder shrug is normal bilaterally. Motor: The strength is left hand brick handler is 4+ with atrophy in the first FDI on left and distal left upper is 4+. Otherwise 5 over 5 throughout. Normal tone and bulk. Cerebellum: Normal finger to nose bilaterally. Sensation: Sensation is normal to touch throughout. SOME OF THE WORK-UP DURING THIS HOSPITAL VISIT CONSISTED OF: * Repeat CT head 08/22/2022 revealed previous surgery. Mild atrophy, no acute intracranial process. I personally reviewed CT head, agree with the findings. * CTA reported as negative of the brain. Mild plaque at the carotid artery bifurcation. No evidence of hemodynamic arterial stenosis in the neck. * Initial EEG 08/19/2022 was abnormal due to amplitude asymmetry with relatively higher amplitude activity in the left frontoparietal region due to breach rhythm from previous craniotomy defect. Background slowing of moderate to severe degree, consistent with generalized cerebral dysfunction, as can be seen with toxic metabolic encephalopathy or due to diffuse structural brain abnormality. Clinical correlation is recommended. No epileptiform activity was seen. * B12 2102, folate 12.90, TSH slightly decreased 0.220, with normal free T4 1.37. Possible due to sick euthyroid. * MRI of the brain is reported as numerous white matter foci the are nonspecific and could relate to demyelinating disease or microvascular ischemia. No evidence of acute cortical infarct. No evidence of intracranial mass. I personally reviewed that imaging with Dr. Pimentel and the was felt the patient has left hemispheric pachymeningeal enhancement and possible old subdural over the left. I spoke with Dr. Wright (reading radiologist) on 08/30 regarding his MRI Brain and he feels the pachymeningeal enhancement on the left with fluid collection on the left side behind skull and these finding can still occur since old surgical resection but clinically correlate. - Labs CBC & Chem 7: 08/30/22 05:40 08/30/22 05:40 Labs: Microbiology - Last 24 Hours (Table) 08/29/22 09:23 Blood Culture - Preliminary Blood No Growth after 72 hours 08/28/22 16:20 Blood Culture - Preliminary Blood No Growth after 72 hours 08/29/22 11:30 Catheter Tip Culture - Final Catheter Tip Assessment and Plan Assessment: * Confusion with continued fevers and I felt the CSF study even though was traumatic but the calculated nucleated cells were still elevated and was on antibiotic for few days prior to CSF study is concerning for meningoencephalitis. Blood culture and sputum is staph but there is concern for ?contaminant---confused has improved * New onset rhythmic twitching of the shoulders bilaterally and some upper limbs, probably myoclonic jerks, unlikely to be seizures. EEG did not reveal any epileptiform activity. No status epilepticus---confusion has drastically improved * Patient presented with unresponsiveness. * Acute kidney injury, now resolved * Status post shock, likely hypovolemic--resolved * History of traumatic brain injury with subdural hematoma, status post craniotomy in 2016 * Left cervical radiculopathy. Has prior neck surgery and multiple spinal surge ry but continues to have weakness in left upper extremity * History of alcoholism. * Atrial fibrillation with RVR, status post cardioversion Plan: * CSF revealed bloody, red, rbc csf 98861, normal glucose 69, CSF protein 57(12- 60), WBC count 160, polynuclear 77%, mononuclear cells 18%, eosinophils 5%, . The corrected nucleated cells is 80 cells (for every 1 nucleated cells is 500- 1000rbc). 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 Possibly more encephalitis since glucose and protein normal but cannot rule out meningitis since CSF was done later and was on antibiotic. MRI of the brain is reported as numerous white matter foci the are nonspecific and could relate to demyelinating disease or microvascular ischemia. No evidence of acute cortical infarct. No evidence of intracranial mass. I spoke with Dr. Wright (reading radiologist) on 08/30 regarding his MRI Brain and he feels the pachymeningeal enhancement on the left with fluid collection on the left side behind skull and these finding can still occur since old surgical resection but clinically correlate. * Was Ceftriaxone 2gm every 12 hours and on IV Acyclovir 850mg every 8 hours and I.D. has D/C Acyclovir. In my opinion, consider use of Acyclovir for total of 14 days for concern of possible encephalitis but will defer final decision to I.D. team. Will defer modification of medication to I.D. team. Clinically he is doing better with these medications and no further fevers since 08/28. * Patient had a prolonged, 2.5 hour EEG performed 08/23/2022. No definitive seizures detected or epileptiform activity. I will go down to from Keppra 500mg 1 tab bid to 250mg bid and recommend within a week to stop since no further seizure. * Likely had decondition from his prolonged ICU was immobile but improving * He is to follow up with a neurosurgeon as an outpatient for his continued left upper extremity weakness and it seems she had the continued left cervical radiculopathy with multiple surgeries in the past. Patient stated that he had 2 EMGs at in the past. * Primary is getting further investigation for his continued fevers. I.D. is on board. The plan is discussed in detailed with patient and primary team. No further neurological work-up but will continue to follow. Dr. Carr will start neurology service tomorrow a.m. Time with Patient: Less than 30
--- NOTE | 2022-09-01 17:52 | P.PN ---
Subjective Progress Note Date: 09/01/22 Principal diagnosis: Fever and bacteremia Patient is a 57 year old male with a past medical history significant for alcohol dependence/abuse history of atrial fibrillation patient was brought to the hospital on 08/16/2022 for evaluation of mental status changes patient presented to the hospital and was hypotensive A. fib with RVR patient got intubated and cardioverted, patient did have evidence of MSSA bacteremia sputum was also positive for the same pathogen subsequently has been running a fever did have a repeat which was traumatic Elevated white count but glucose protein normal. on today's evaluation that is 09/01/2022, the patient continues to be afebrile, the patient is breathing comfortably on room air patient denies any headache , the patient denies chest pain shortness of breath , the patient did have occasional dry cough , no abdominal pain, the patient diarrhea has resolved and no urinary symptoms, overall feeling better Objective - Vital Signs Vital signs: Vital Signs Temp 98.1 F 09/01/22 14:07 Pulse 79 09/01/22 14:07 Resp 18 09/01/22 14:07 BP 109/66 09/01/22 14:07 Pulse Ox 93 L 09/01/22 14:07 FiO2 35 08/26/22 08:00 Intake & Output 08/31/22 09/01/22 09/01/22 18:59 06:59 18:59 Intake Total 320 Output Total 350 Balance 320 -350 Weight 79.4 kg Intake: IV 270 .9 @ 10 120 Thiamine 100 mg In Sodium 50 Chloride 0.9% 50 ml @ 100 mls/hr IVPB Q24HR [facility] Rx#:[id number] levETIRAcetam IV 1,000 mg 100 In Saline 1 100ml.bag @ 400 mls/hr IVPB Q12HR [facility] Rx#:[id number] Intake, IV Titration 50 Amount cefTRIAXone 2 gm In 50 Sodium Chloride 0.9% 50 ml @ 100 mls/hr IVPB Q12HR [facility] Rx#:[id number] Output: Urine 350 Other: Voiding Method Urinal Toilet Toilet Urinal Urinal ABP, PAP, CO, CI - Last Documented Arterial Blood Pressure 83/66 - Exam GENERAL DESCRIPTION: A middle-aged male lying in bed in no distress RESPIRATORY SYSTEM: Unlabored breathing , decreased breath sounds at bases HEART: S1 S2 regular rate and rhythm , ABDOMEN: Soft , no tenderness EXTREMITIES: No edema feet - Labs CBC & Chem 7: 08/30/22 05:40 08/30/22 05:40 Labs: Microbiology - Last 24 Hours (Table) 08/29/22 09:23 Blood Culture - Preliminary Blood No Growth after 72 hours 08/28/22 16:20 Blood Culture - Preliminary Blood No Growth after 72 hours 08/29/22 11:30 Catheter Tip Culture - Final Catheter Tip Assessment and Plan (1) Bacteremia Current Visit: Yes Status: Acute Code(s): R78.81 - BACTEREMIA SNOMED Code(s): 4456000 (2) Fever Current Visit: Yes Status: Acute Code(s): R50.9 - FEVER, UNSPECIFIED SNOMED Code(s): 477557757 Plan: 1patient with abnormal CSF which is mostly a traumatic tap with more than 40,000 RBC white count is still symptomatic elevated however the patient did have a normal glucose and protein the patient currently denies having any headache and he is aware that he is at [facility] all these factors will go against meningitis or encephalitis 2patient now to have a fever in this patient who did have a positive blood as well as sputum culture for MSSA and did have evidence of a left-sided effusion question of possible pulmonary source/empyema, in addition patient also having diarrhea with fecal management system , stool for C. diff negative 3there was a question of possible meningeal enhancement on the MRI which was not reported on the official MRI plus the patient did have a normal protein and glucose my clinic suspicious for meningitis remains to be low in this patient currently with no headache, patient echocardiogram was negative for any veg etation, CT of the chest is concerning for pneumonia patient will continue with the Rocephin , plan is to get the midline in the morning and continue with Rocephin 10 days and close outpatient follow-up Time with Patient: Less than 30
[2022-09-01] MEDS: levETIRAcetam 250 MG TAB PO SCH (20:24)
[2022-09-02] MEDS: ENOXAPARIN 40 MG/0.4 ML SYRINGE SQ SCH ×2 (06:07→08:05)
[2022-09-02 06:18] LABS: INR 1.1 (<1.2); Prothrombin Time 11.5 sec (9.0-12.0)
[2022-09-02] MEDS: ASPIRIN 81 MG PO SCH (08:04)
[2022-09-02] MEDS: THIAMINE 100 MG TAB PO SCH (08:05)
[2022-09-02] MEDS: METOPROLOL TARTRATE 25 MG TAB PO SCH (08:05)
[2022-09-02] MEDS: PANTOPRAZOLE 40 MG/10 ML VIAL IVP SCH (08:05)
[2022-09-02] MEDS: levETIRAcetam 250 MG TAB PO SCH (08:05)
[2022-09-02 08:44] VITALS: BP 120/75; PULSE 87; RESP 16; TEMP 97.8
--- NOTE | 2022-09-02 09:47 | P.PN ---
Subjective Progress Note Date: 09/02/22 On today's evaluation of 09/09/2021, the patient is awake and alert and following commands and answering questions appropriately. He is weak and he is requiring a walker to move around. He is currently on room air oxygen. He is known to have alcoholism and chronic atrial fibrillation. He has been in the hospital for at least for the past 17 days. The patient was intubated and subsequent extubation was done successfully. He presented with sepsis and he was found to have MSSA bacteremia and sepsis and his blood cultures were also positive. The patient was treated accordingly. The lumbar puncture was also abnormal yet not consistent with acute meningitis or encephalitis. At this point in time, the patient is on room air oxygen. He is afebrile and he is hemodynamically stable. Most recent cultures from the blood came back negative. He is currently completing course of IV Rocephin. PICC line in his right upper extremity. No other issues for now. Objective - Vital Signs Vital signs: Vital Signs Temp 97.8 F 09/02/22 07:23 Pulse 87 09/02/22 07:23 Resp 16 09/02/22 07:23 BP 120/75 09/02/22 07:23 Pulse Ox 94 L 09/02/22 07:23 FiO2 35 08/26/22 08:00 Intake & Output 09/01/22 09/02/22 09/02/22 18:59 06:59 18:59 Intake Total 1080 Balance 1080 Weight 76.6 kg Intake: Oral 1080 Other: Voiding Method Toilet Toilet Urinal Urinal # Voids 3 2 ABP, PAP, CO, CI - Last Documented Arterial Blood Pressure 83/66 - Exam No acute distress, awake and alert, currently on room air. Mental status is back to normal. HEENT examination is grossly unremarkable. Neck supple. Full range of motion. No adenopathy thyromegaly or neck vein distention. Cardiovascular examination reveals regular rhythm rate. S1-S2 normal. No S3 or S4. No discernible murmur noted. Heart rate 75 bpm. Lungs reveal mostly clear breath sounds. Minimal rhonchi. No wheezes or crackles. Room air saturation is 94 %. Abdomen soft bowel sounds are heard. No masses or tenderness. Extremities are intact. No cyanosis clubbing or edema. Skin is without rash or lesion. Neurologic examination is brief but nonfocal. - Labs CBC & Chem 7: 08/30/22 05:40 08/30/22 05:40 Labs: Microbiology - Last 24 Hours (Table) 08/28/22 16:20 Blood Culture - Preliminary Blood No Growth after 96 hours 08/29/22 09:23 Blood Culture - Preliminary Blood No Growth after 72 hours Assessment and Plan Plan: Right lung pneumonia, right upper/middle lobe Altered mental status, recovered Acute respiratory failure, recovered Sepsis, recovered Severe lactic acidosis, recovered Hypotension, recovered and the patient is normotensive for now Anion gap metabolic acidosis, recovered Troponin leak, probably in association with major hemodynamic alteration in acidosis, type II ischemia. Alcoholism Acute kidney injury , recovered Acute hypokalemia, awaiting follow-up labs, being replaced History of atrial fibrillation, current rhythm is sinus Hypertension Hyperlipidemia Plan Complete the course of antibiotics per IDs recommendation physical therapy and the patient was already given a walker Continue most recent CAT scan of the chest from 08/30/2022 showed a right upper and right middle lung opacity/pulmonary infiltrates/pneumonia with a small left- sided pleural effusion. Nevertheless, the patient is currently on room air oxygen. No signs of any respiratory difficulties.
--- NOTE | 2022-09-02 11:57 | P.PN ---
Subjective Progress Note Date: 09/02/22 Principal diagnosis: Fever and bacteremia Patient is a 57 year old male with a past medical history significant for alcohol dependence/abuse history of atrial fibrillation patient was brought to the hospital on 08/16/2022 for evaluation of mental status changes patient presented to the hospital and was hypotensive A. fib with RVR patient got intubated and cardioverted, patient did have evidence of MSSA bacteremia sputum was also positive for the same pathogen subsequently has been running a fever did have a repeat which was traumatic Elevated white count but glucose protein normal. on today's evaluation that is 09/02/2022, the patient remains to be afebrile, the patient is breathing comfortably on room air patient denies any headache , the patient denies chest pain shortness of breath , the patient did have occasional cough but no sputum production no nausea no vomiting no abdominal pain no diarrhea Objective - Vital Signs Vital signs: Vital Signs Temp 97.8 F 09/02/22 07:23 Pulse 87 09/02/22 08:16 Resp 16 09/02/22 08:16 BP 120/75 09/02/22 07:23 Pulse Ox 94 L 09/02/22 07:23 FiO2 35 08/26/22 08:00 Intake & Output 09/01/22 09/02/22 09/02/22 18:59 06:59 18:59 Intake Total 1080 Balance 1080 Weight 76.6 kg Intake: Oral 1080 Other: Voiding Method Toilet Toilet Toilet Urinal Urinal # Voids 3 2 ABP, PAP, CO, CI - Last Documented Arterial Blood Pressure 83/66 - Exam GENERAL DESCRIPTION: A middle-aged male lying in bed in no distress RESPIRATORY SYSTEM: Unlabored breathing , decreased breath sounds at bases HEART: S1 S2 regular rate and rhythm , ABDOMEN: Soft , no tenderness EXTREMITIES: No edema feet - Labs CBC & Chem 7: 08/30/22 05:40 08/30/22 05:40 Labs: Microbiology - Last 24 Hours (Table) 08/28/22 16:20 Blood Culture - Preliminary Blood No Growth after 96 hours 08/29/22 09:23 Blood Culture - Preliminary Blood No Growth after 72 hours Assessment and Plan (1) Bacteremia Current Visit: Yes Status: Acute Code(s): R78.81 - BACTEREMIA SNOMED Code(s): 9345620 (2) Fever Current Visit: Yes Status: Acute Code(s): R50.9 - FEVER, UNSPECIFIED SNOMED Code(s): 530204522 Plan: 1patient with abnormal CSF which is mostly a traumatic tap with more than 40,000 RBC white count is still symptomatic elevated however the patient did have a normal glucose and protein the patient currently denies having any headac he and he is aware that he is at [facility] all these factors will go against meningitis or encephalitis 2patient now to have a fever in this patient who did have a positive blood as well as sputum culture for MSSA and did have evidence of a left-sided effusion question of possible pulmonary source/empyema, in addition patient also having diarrhea with fecal management system , stool for C. diff negative 3there was a question of possible meningeal enhancement on the MRI which was not reported on the official MRI plus the patient did have a normal protein and glucose my clinic suspicious for meningitis remains to be low in this patient currently with no headache, patient echocardiogram was negative for any vegetation, CT of the chest is concerning for pneumonia , keeping in mind the patient fever has resolved off antibiotic was switched over to Rocephin and a surgical consult for possible meningitis though this likely and pneumonia we will consider Rocephin 2 g every 12 hours 10 days on discharge and close outpatient follow-up Time with Patient: Less than 30
--- NOTE | 2022-09-02 13:08 | P.DS ---
Providers Date of admission: 08/16/22 23:52 Expected date of discharge: 09/02/22 Attending physician: Denny De León MD Consults: 08/16/22 23:41 Consult Physician Stat Consulting Provider: Stefano Nesbitt Consult Reason/Comments: acute vent dependance, acute encephalopathy, alcohol withdrawal, afib rvr Do you want consulting provider notified?: Already Contacted Consult Physician Urgent Consulting Provider: Matt Rocha Consult Reason/Comments: angelica Do you want consulting provider notified?: Yes 08/19/22 08:21 Consult Physician Routine Consulting Provider: Elmer Heredia Consult Reason/Comments: mental status changes Do you want consulting provider notified?: Yes 08/26/22 17:16 Consult Physician Routine Consulting Provider: Juventino Ruiz Consult Reason/Comments: infectious encephalopathy? Do you want consulting provider notified?: Yes 08/28/22 09:47 Consult Physician Routine Consulting Provider: Adrian Snell Consult Reason/Comments: rehab Do you want consulting provider notified?: Yes Primary care physician: Vane King MD Hospital Course: Discharge Diagnosis: Meningoencephalitis Staph bacteremia Bacterial pneumonia Acute metabolic encephalopathy Hyperammonemia Alcohol withdrawal A. fib with RVR status post cardioversion Elevated troponin Acute hypoxic and hypercapnic respiratory failure status post intubation Shock, hypovolemic High anion gap metabolic acidosis secondary to Severe lactic acidosis Acute kidney injury Severe hyperphosphatemia Severe hypokalemia GI bleed Hypomagnesemia Thrombocytopenia Transaminitis Hospital Course: Patient is a 57-year-old male with history of alcohol dependence/abuse, atrial fibrillation who presented with altered mentation and possible code stroke. On arrival, patient was hemodynamically unstable, in A. fib with RVR, he was intubated and cardioverted to normal sinus rhythm. CT head showed no acute process, interventional neurology residential solar consultant did not recommend to give alteplase. Reportedly, patient has been binge drinking, his last drink was on August 11. Per family patient was vomiting prior to becoming unresponsive. His initial labs were consistent with severe dehydration, pH of 7.13, potassium 2.7, creatinine of 3.66, lactic acid of 12.4, mild transaminitis, mild elevated troponin, urine tox positive for benzos and marijuana. He was admitted directly to the ICU. There was also concern for possible GI bleed after NG tube placement, patient on IV Protonix, surgery following a hemoglobin stable. Renal function improved with IV fluids. Patient extubated on 08/26/22. Blood cultures positive for MSSA, coag negative staph. Sputum culture is also positive for MSSA. Due to persistent fevers, and encephalopathy, neurology was consulted. Patient had an LP, indicating likely meningoencephalitis, possibly bacterial. Patient was initially on IV vancomycin, Rocephin, acyclovir. He had clinical improvement, has been afebrile for a few days. Patient being discharged short course of IV Rocephin per ID. per neurology, patient has follow-up with neurosurgery for left upper extremity weakness. Patient also discharged on 1 week of Keppra taper. Imaging: Head CT 08/16/22: mild cerebral atrophy CT angio head and neck 08/16/22: negatvive CT chest/abd/pelvis 08/16/22: no significant abnormality US abd/bladder 08/17/22: no hydro EEG 08/19/22: abnormal due to asymetry and background slowing Head CT 08/21/22: prior surgery, mild atrophy EEG 08/22/22: abnormal due to asymmery and sporadic sharp waves Lumbar spine CT 08/25/22: Hypertrophic degenerative changes in the lumbar spine EEG 2.5 hr 08/25/22: Mod-severe diffuse cerebral dysfunction MRI Brain 08/28- numerous white matter changes. CT chest 08/30: Right upper and middle lobe pneumonia Procedures: Art and central line 08/21/22 LP 08/25/22 Patient seen and examined at bedside. Vital signs reviewed and stable. General: nontoxic, no distress, appears at stated age Derm: warm, dry Head: atraumatic, normocephalic, symmetric Eyes: EOMI, no lid lag, anicteric sclera Mouth: no lip lesion, mucus membranes moist Cardiovascular: S1S2 reg, no murmur Lungs: CTA bilateral, no rhonchi, no rales , no accessory muscle use Abdominal: soft, nontender to palpation, no guarding, no appreciable organomegaly Ext: no gross muscle atrophy, no edema, no contractures Neuro: CN II-XI grossly intact, no focal neuro deficits Psych: Alert, oriented, appropriate affect A total of 55 minutes of time were spent preparing this complex discharge summary. Patient was discharged on 09/02/22 at 13:04. Patient Condition at Discharge: Stable Plan - Discharge Summary Discharge Rx Participant: No New Discharge Prescriptions: New Aspirin 81 mg PO DAILY #30 tab Metoprolol Tartrate [Lopressor] 25 mg PO BID #60 tab cefTRIAXone [Rocephin] 2 gm IVPB Q12HR each Thiamine [Vitamin B-1] 100 mg PO DAILY #30 tab levETIRAcetam [Keppra] 250 mg PO Q12HR #14 tab Continue Pravastatin Sodium [Pravachol] 40 mg PO DAILY Omeprazole [PriLOSEC] 20 mg PO DAILY #30 cap Discontinued Hydrocodone/Acetaminophen [[place] 5-325] 2 each PO Q6HR PRN #20 tab PRN Reason: Pain Metoclopramide [Reglan] 5 mg PO QID PRN PRN Reason: GERD methocarbamoL [Methocarbamol] 750 mg PO TID PRN PRN Reason: Muscle Pain Potassium Chloride ER [K-Dur 20] 20 meq PO BID Metoprolol Succinate (ER) [Toprol XL] 50 mg PO DAILY Discharge Medication List Pravastatin Sodium [Pravachol] 40 mg PO DAILY 08/17/22 [History] Aspirin 81 mg PO DAILY #30 tab 09/02/22 [Rx] Metoprolol Tartrate [Lopressor] 25 mg PO BID #60 tab 09/02/22 [Rx] Omeprazole [PriLOSEC] 20 mg PO DAILY #30 cap 09/02/22 [Rx] Thiamine [Vitamin B-1] 100 mg PO DAILY #30 tab 09/02/22 [Rx] cefTRIAXone [Rocephin] 2 gm IVPB Q12HR each 09/02/22 [Rx] levETIRAcetam [Keppra] 250 mg PO Q12HR #14 tab 09/02/22 [Rx] Follow up Appointment(s)/Referral(s): [facility], [NON[facility]STAFF] - As Needed (Home care will set up appontemt. any questions please call agency. ) Pedro Thomas MD [STAFF PHYSICIAN] - 1-2 days Patient Instructions/Handouts: Abuse of Alcohol (DC), Bacterial Pneumonia (DC), Bacteremia (DC), Encephalopathy (DC), Bacterial Meningitis (DC) Activity/Diet/Wound Care/Special Instructions: Please follow up with your PCP as soon as possible. You also need to follow up with neurology and neurosurgery with regards to left arm weakness. Discharge Disposition: HOME WITH HOME HEALTH SERVICES
--- NOTE | 2022-09-04 10:54 | CDI ---
Documentation Clarification Form Date: 09/04/2022 10:28:27 AM From: Melly العراقي Admit Date: 08/16/2022 11:52:00 PM Patient Name: Reji Preston Visit Number: [id number] Discharge Date: 09/02/2022 2:15:00 PM ATTENTION: The Clinical Documentation Specialists (CDI) and [facility] Coding Staff appreciate your assistance in clarifying documentation. Please respond to the clarification below the line at the bottom and electronically sign. The CDI & [facility] Coding staff will review the response and follow-up if needed. Please note: Queries are made part of the Legal Health Record. If you have any questions, please contact the author of this message via ITS. Dr. Travis Mobley Conflicting documentation has been found in the medical record. As attending physician, please provide clarification. Per DCS Staph bacteremia Per Progress Note 09/02 "He presented with sepsis and he was found to have MSSA bacteremia and sepsis and his blood cultures were positive." Per ID consult 08/27 "ID was consulted last evening after the patient has been in the hospital for 11 days and presented with sepsis" History/Risk Factors: Clinical Indicators: MSSA positive blood cultures. WBC 17.2, lactic acid 12.4, HR 170 BPM, on 08/20 temp 103.5 axillary Treatment: Vancomycin, cefazolin, Rocephin along with acyclovir Please clarify which diagnosis is most appropriate: [ x ] MSSA sepsis POA [ ] Sepsis ruled out [ ] Other (please specify) [ ] Unable to determine MTDD
--- NOTE | 2022-09-12 15:18 | P.PN ---
Progress Note - Text Progress Note Date: 09/02/22 Patient was discharged before I could see him for follow-up. Course over the last 1 week reviewed. Patient's lumbar puncture performed 08/24/2022 at 5 pm, was grossly bloody CSF. The CSF cell count was performed on tube #4, which was most bloody out of all tubes. RBC 40,700, WBC 160 differential includes polynuclear 77%, mononuclear 18%, eosinophils 5% Patient's CBC from the same day 05:30 am on 08/24/2022 was Total WBC 6.6 hemoglobin 10.9 and WBC differential neutrophils 68%, lymphocytes 18%, monocytes 6%, eosinophils 4% CSF Gram stain was negative. No polymorphonuclear leukocytes seen. No organisms seen. Cultures negative. CSF glucose 69 (40-70), CSF protein 57(12-60), both completely normal. Impression: Although the CSF nucleated cells were elevated 160 when corrected for the amount of red blood cells 40,700. However the differential of WBCs in the CSF and the differential of WBCs in the blood were almost identical. The CSF cell count was performed from tube #4, which was most bloody. Most importantly, the Gram stain showed no polymorphonuclear leukocytes seen (which likely was performed from tube #2, which was the most clear CSF out of all 4 tubes). I confirmed with [facility], who concurred that there were no polymorphonuclear cells seen. Also that CSF glucose and CSF protein were normal. Based upon above information, I had felt that the elevated white cells in the CSF is most likely due to traumatic tap. I spoke to infectious disease Dr. Ruiz today, who did not feel there was meningitis encephalitis. Patient apparently developed high-grade fever 1-2 days after lumbar puncture. Ideally, a repeat CSF was indicated at that time, if there were signs of m eningitis/encephalitis. Patient however had a clear source of infection including pneumonia. However patient continued to improve and is ultimately discharged today.
== END 2022-09-02 14:15 | disposition home health service (06) | DRG 870 ==
LOC: EC 20:14 → 2SICU 23:52 → 4SSUR 08-28 17:19
PROVIDERS: ADMIT Internal Medicine; ATTEND Internal Medicine
PROC: 0BH17EZ Insertion of Endotracheal Airway into Trachea, Via Natural or Artificial Opening (ICD-10-PCS; principal; 2022-08-16)
PROC: 5A1955Z Respiratory Ventilation, Greater than 96 Consecutive Hours (ICD-10-PCS; principal; 2022-08-16)
PROC: 5A2204Z Restoration of Cardiac Rhythm, Single (ICD-10-PCS; 2022-08-16)
PROC: 5A09357 Assistance with Respiratory Ventilation, Less than 24 Consecutive Hours, Continuous Positive Airway Pressure (ICD-10-PCS; 2022-08-16)
PROC: 3E0G76Z Introduction of Nutritional Substance into Upper GI, Via Natural or Artificial Opening (ICD-10-PCS; 2022-08-17)
PROC: 0DH67UZ Insertion of Feeding Device into Stomach, Via Natural or Artificial Opening (ICD-10-PCS; 2022-08-17)
PROC: 4A133B1 Monitoring of Arterial Pressure, Peripheral, Percutaneous Approach (ICD-10-PCS; 2022-08-21)
PROC: 02HV33Z Insertion of Infusion Device into Superior Vena Cava, Percutaneous Approach (ICD-10-PCS; 2022-08-21)
PROC: 03HY32Z Insertion of Monitoring Device into Upper Artery, Percutaneous Approach (ICD-10-PCS; 2022-08-21)
PROC: 4A133J1 Monitoring of Arterial Pulse, Peripheral, Percutaneous Approach (ICD-10-PCS; 2022-08-21)
PROC: 009U3ZX Drainage of Spinal Canal, Percutaneous Approach, Diagnostic (ICD-10-PCS; 2022-08-24)
PROC: 05HA33Z Insertion of Infusion Device into Left Brachial Vein, Percutaneous Approach (ICD-10-PCS; 2022-09-02)
DX: A41.01 Sepsis due to Methicillin susceptible Staphylococcus aureus (principal); G04.90 Encephalitis and encephalomyelitis, unspecified; E43 Unspecified severe protein-calorie malnutrition; G93.41 Metabolic encephalopathy; J15.9 Unspecified bacterial pneumonia; R57.1 Hypovolemic shock; J96.01 Acute respiratory failure with hypoxia; J96.02 Acute respiratory failure with hypercapnia; N17.0 Acute kidney failure with tubular necrosis; G92.8 Other toxic encephalopathy; F10.239 Alcohol dependence with withdrawal, unspecified; E72.20 Disorder of urea cycle metabolism, unspecified; E87.0 Hyperosmolality and hypernatremia; E87.3 Alkalosis; J98.11 Atelectasis; K92.2 Gastrointestinal hemorrhage, unspecified; D69.6 Thrombocytopenia, unspecified; Z68.24 Body mass index [BMI] 24.0-24.9, adult; E78.5 Hyperlipidemia, unspecified; E83.39 Other disorders of phosphorus metabolism; E83.42 Hypomagnesemia; E86.0 Dehydration; I65.29 Occlusion and stenosis of unspecified carotid artery; E87.6 Hypokalemia; I10 Essential (primary) hypertension; G97.1 Other reaction to spinal and lumbar puncture; I25.10 Atherosclerotic heart disease of native coronary artery without angina pectoris; I48.0 Paroxysmal atrial fibrillation; Z91.81 History of falling; Z74.1 Need for assistance with personal care; Z79.899 Other long term (current) drug therapy; Z87.820 Personal history of traumatic brain injury; Z91.14 Patient's other noncompliance with medication regimen; R77.8 Other specified abnormalities of plasma proteins; Z71.3 Dietary counseling and surveillance; Z88.0 Allergy status to penicillin; Z28.21 Immunization not carried out because of patient refusal
CPT/HCPCS: 31500; 36410; 36415; 36600; 70450; 70496; 70498; 70553; 71045; 71250; 71260; 72131; 74177; 76770; 76937; 80048; 80053; 80076; 80185; 80202; 80306; 80320; 81001; 82140; 82150; 82272; 82565; 82607; 82746; 82803; 82805; 82945; 83605; 83690; 83735; 84100; 84132; 84145; 84157; 84439; 84443; 84484; 85025; 85027; 85610; 85730; 86140; 87040; 87070; 87077; 87186; 87205; 87252; 87324; 87496; 87498; 87529; 87798; 89050; 92960; 93005; 93306; 93970; 94002; 94003; 94760; 95713; 95816; 95822; 96361; 96365; 96368; 99291

== ENCOUNTER 2023-02-27 14:39 | Inpatient (IN) | payer MEDICARE ==
[2023-02-27] MEDS ORDERED: ONDANSETRON 4 MG/2 ML VIAL IVP STA (15:34)
[2023-02-27] MEDS ORDERED: LORazepam 2 MG/ML INJ IV STA (15:34)
[2023-02-27] MEDS ORDERED: SODIUM CHLORIDE 0.9% 1,000 ML IV STA ×2 (15:41)
[2023-02-27] MEDS ORDERED: PANTOPRAZOLE 40 MG/10 ML VIAL IVP STA (15:41)
[2023-02-27] MEDS ORDERED: SODIUM CHLORIDE 0.9% 500 ML 500 ML IV STA (15:41)
--- NOTE | 2023-02-27 15:42 | ED ---
Nausea/Vomiting/Diarrhea HPI - General Chief complaint: Nausea/Vomiting/Diarrhea Stated complaint: Stroke Symptoms Time Seen by Provider: 02/27/23 15:16 Source: patient, RN notes reviewed, old records reviewed Mode of arrival: wheelchair Limitations: no limitations - History of Present Illness Initial comments: This is a 57-year-old male to the emergency department for evaluation patient presents today for evaluation regards to severe and intractable nausea and vomiting. Increasing for 1-2 days. Patient has never had similar symptoms at this point. Patient symptoms are now profound with lightheadedness dizziness sweating but without abdominal pain without chest pain no shortness of breath. Patient does have a history of similar event in the past unsure of underlying cause. Patient has history of high blood pressure high cholesterol, no prior surgical history and patient denies smoking or significant alcohol use, does smoke marijuana MD complaint: nausea, vomiting -: hour(s) Description of Vomiting: food contents, watery, bilious Description of Diarrhea: water Location: diffuse Radiation: none Severity: severe Severity scale (1-10): 10 Consistency: constant Improves with: none Worsens with: eating, vomiting, movement Context: other (0) Associated Symptoms: loss of appetite, malaise, nausea/vomiting, weakness - Related Data Home Medications Medication Instructions Recorded Confirmed Metoprolol Succinate (ER) [Toprol 50 mg PO HS 02/27/23 02/27/23 XL] Omeprazole [PriLOSEC] 20 mg PO HS 02/27/23 02/27/23 Pravastatin Sodium [Pravachol] 80 mg PO HS 02/27/23 02/27/23 methocarbamoL [Methocarbamol] 750 mg PO TID PRN 02/27/23 02/27/23 Previous Rx's Medication Instructions Recorded Aspirin 81 mg PO DAILY tab 02/28/23 Budesonide-Formot 160-4.5 Mcg 2 puff INHALATION RT-BID 30 Days 02/28/23 [Symbicort 160-4.5 Mcg Inhaler] #1 each Thiamine [Vitamin B-1] 100 mg PO DAILY 30 Days #30 tab 02/28/23 Allergies Allergy/AdvReac Type Severity Reaction Status Date / Time Penicillins Allergy Unknown Verified 02/27/23 17:20 Childhood Review of Systems ROS Statement: Those systems with pertinent positive or pertinent negative responses have been documented in the HPI. ROS Other: All systems not noted in ROS Statement are negative. Past Medical History Past Medical History: Hypertension History of Any Multi-Drug Resistant Organisms: None Reported Past Surgical History: Appendectomy, Orthopedic Surgery, Tonsillectomy Additional Past Surgical History / Comment(s): surgery for brain bleed 2019 or 2019 (family unsure) Past Psychological History: No Psychological Hx Reported Smoking Status: Never smoker Past Alcohol Use History: Daily Past Drug Use History: None Reported, Marijuana - Past Family History family Family Medical History: Cancer Additional Family Medical History / Comment(s): no CAD General Exam Limitations: no limitations General appearance: alert, in no apparent distress Head exam: Present: atraumatic, normocephalic, normal inspection Eye exam: Present: normal appearance, PERRL, EOMI. Absent: scleral icterus, conjunctival injection, periorbital swelling ENT exam: Present: normal exam, mucous membranes moist Neck exam: Present: normal inspection. Absent: tenderness, meningismus, lymphadenopathy Respiratory exam: Present: normal lung sounds bilaterally. Absent: respiratory distress, wheezes, rales, rhonchi, stridor Cardiovascular Exam: Present: regular rate, normal rhythm, normal heart sounds. Absent: systolic murmur, diastolic murmur, rubs, gallop, clicks GI/Abdominal exam: Present: soft, normal bowel sounds. Absent: distended, tenderness, guarding, rebound, rigid Extremities exam: Present: normal inspection, full ROM, normal capillary refill. Absent: tenderness, pedal edema, joint swelling, calf tenderness Back exam: Present: normal inspection Neurological exam: Present: alert, oriented X3, CN II-XII intact Psychiatric exam: Present: normal affect, normal mood Skin exam: Present: warm, dry, intact, normal color. Absent: rash Course Vital Signs 02/27/23 02/27/23 02/27/23 14:40 17:49 18:35 Temperature 98.7 F 99.4 F Pulse Rate 75 89 106 H Respiratory 16 19 20 Rate Blood Pressure 153/100 145/85 O2 Sat by Pulse 96 95 97 Oximetry 02/27/23 02/28/23 02/28/23 22:00 01:00 03:45 Temperature Pulse Rate 65 64 66 Respiratory 16 15 16 Rate Blood Pressure 154/91 121/79 114/75 O2 Sat by Pulse 95 96 97 Oximetry 07/21/23 07/21/23 07/21/23 07:00 09:16 11:32 Temperature Pulse Rate 54 L 57 L 63 Respiratory 16 18 18 Rate Blood Pressure 123/75 134/88 113/77 O2 Sat by Pulse 97 92 L 96 Oximetry 02/28/23 15:07 Temperature Pulse Rate 64 Respiratory 18 Rate Blood Pressure 127/94 O2 Sat by Pulse 95 Oximetry - Reevaluation(s) Reevaluation #1: 02/27/23 16:46 Medical records reviewed Reevaluation #2: 02/27/23 16:46 Patient symptoms are improving Reevaluation #3: 02/27/23 16:46 Patient informed of results and questions are answered Reevaluation #4: 02/27/23 16:46 Was pt. sent in by a medical professional or institution? @ -no Did you speak to anyone other than the patient for history? @ -no Did you review nursing and triage notes? @ -agree Were old charts reviewed? @ -yes Differential Diagnosis? @ -prior EKG interpreted by me (3pts min.)? @ -yes X-rays interpreted by me (1pt min.)? @ yes CT interpreted by me (1pt min.)? @ -no U/S interpreted by me (1pt. min.)? @ -no What testing was considered but not performed? (CT, X-rays, U/S, labs)? Why? @ -no What meds were considered but not given? Why? @ -no Did you discuss the management of the patient with other professionals? @ -Did speak with Dr. Koehler who helps informed of patient's history of prior hospitalization which included recurrent hypoglycemia Did you reconcile home meds? @ -no Was smoking cessation discussed for >3mins.? @ -no Was critical care preformed (if so, how long)? @ -no Were there social determinants of health that impacted care today? How? (Homelessness, low income, unemployed, alcoholism, drug addiction, transportation, low edu. Level, literacy, decrease access to med. care, halfway, rehab)? @ -no Was there de-escalation of care discussed even if they declined? (Discuss DNR or withdrawal of care, Hospice)? @ -no What co-morbidities impacted this encounter? (DM, HTN, Smoking, COPD, CAD, Cancer, CVA, Hep., AIDS, mental health diagnosis, sleep apnea, morbid obesity)? @ -Alcohol abuse Was patient admitted / discharged? @ -57 male acutely going to alcohol withdrawal and delirium tremens. Patient will be admitted for further evaluation management Admitted Undiagnosed new problem with uncertain prognosis? @ -no Drug Therapy requiring intensive monitoring for toxicity (Heparin, Nitro, Insulin, Cardizem)? @ -no Were any procedures done? @ -no Diagnosis/symptom? @ -Recurrent hypoglycemia DTs, or joint arrangements,, or Chronic, or Acute on Chronic? @ -acute Uncomplicated (without systemic symptoms) or Complicated (systemic symptoms)? @ -complicated Side effects of treatment? @ -no Exacerbation, Progression, or Severe Exacerbation] @ -no Poses a threat to life or bodily function? @ -yes with severe withdrawal Reevaluation #5: 02/27/23 16:46 Differential Abdominal Pain Men: Appendicitis, cholecystitis, diverticulosis, ischemic bowel, pancreatitis, hepatitis, UTI, gastroenteritis, AAA, incarcerated hernia, bowel obstruction, constipation, inflammatory bowel, hepatitis, peptic ulcer disease, splenic infarction, perforated viscus, testicular torsion, this is not meant to be an all-inclusive list - Consultations Consultation #1: Spoke with Dr. Wood will admit this patient Medical Decision Making - Medical Decision Making 57 male acutely going to alcohol withdrawal and delirium tremens. Patient will be admitted for further evaluation management - Lab Data Result diagrams: 02/28/23 03:55 02/28/23 09:16 Lab Results 02/27/23 02/27/23 02/27/23 Range/Units 16:33 16:33 16:33 WBC 14.6 H (3.8-10.6) k/uL RBC 5.67 (4.30-5.90) m/uL Hgb 17.5 (13.0-17.5) gm/dL Hct 51.4 (39.0-53.0) % MCV 90.8 (80.0-100.0) fL MCH 30.9 (25.0-35.0) pg MCHC 34.0 (31.0-37.0) g/dL RDW 13.4 (11.5-15.5) % Plt Count 148 L (150-450) k/uL MPV 9.6 Neutrophils % 78 % Lymphocytes % 13 % Monocytes % 7 % Eosinophils % 0 % Basophils % 0 % Neutrophils # 11.4 H (1.3-7.7) k/uL Lymphocytes # 1.9 (1.0-4.8) k/uL Monocytes # 1.1 H (0-1.0) k/uL Eosinophils # 0.0 (0-0.7) k/uL Basophils # 0.0 (0-0.2) k/uL PT 11.0 (9.0-12.0) sec INR 1.0 (<1.2) APTT 22.3 (22.0-30.0) sec Sodium (137-145) mmol/L Potassium (3.5-5.1) mmol/L Chloride (98-107) mmol/L Carbon Dioxide (22-30) mmol/L Anion Gap mmol/L BUN (9-20) mg/dL Creatinine (0.66-1.25) mg/dL Est GFR (CKD-EPI)AfAm (>60 ml/min/1.73 sqM) Est GFR (CKD-EPI)NonAf (>60 ml/min/1.73 sqM) Glucose (74-99) mg/dL Lactic Ac Sepsis Rflx Plasma Lactic Acid Aiden 2.4 H* (0.7-2.0) mmol/L Calcium (8.4-10.2) mg/dL Phosphorus (2.5-4.5) mg/dL Magnesium (1.6-2.3) mg/dL Total Bilirubin (0.2-1.3) mg/dL AST (17-59) U/L ALT (4-49) U/L Alkaline Phosphatase (38-126) U/L Ammonia <9 (<30) umol/L Troponin I (0.000-0.034) ng/mL NT-Pro-B Natriuret Pep pg/mL Total Protein (6.3-8.2) g/dL Albumin (3.5-5.0) g/dL Lipase (23-300) U/L 02/27/23 02/27/23 02/27/23 Range/Units 16:33 16:49 17:04 WBC (3.8-10.6) k/uL RBC (4.30-5.90) m/uL Hgb (13.0-17.5) gm/dL Hct (39.0-53.0) % MCV (80.0-100.0) fL MCH (25.0-35.0) pg MCHC (31.0-37.0) g/dL RDW (11.5-15.5) % Plt Count (150-450) k/uL MPV Neutrophils % % Lymphocytes % % Monocytes % % Eosinophils % % Basophils % % Neutrophils # (1.3-7.7) k/uL Lymphocytes # (1.0-4.8) k/uL Monocytes # (0-1.0) k/uL Eosinophils # (0-0.7) k/uL Basophils # (0-0.2) k/uL PT (9.0-12.0) sec INR (<1.2) APTT (22.0-30.0) sec Sodium 134 L (137-145) mmol/L Potassium 2.9 L (3.5-5.1) mmol/L Chloride 89 L (98-107) mmol/L Carbon Dioxide 31 H (22-30) mmol/L Anion Gap 14 mmol/L BUN 21 H (9-20) mg/dL Creatinine 0.99 (0.66-1.25) mg/dL Est GFR (CKD-EPI)AfAm >90 (>60 ml/min/1.73 sqM) Est GFR (CKD-EPI)NonAf 83 (>60 ml/min/1.73 sqM) Glucose 121 H (74-99) mg/dL Lactic Ac Sepsis Rflx Y Plasma Lactic Acid Aiden (0.7-2.0) mmol/L Calcium 9.1 (8.4-10.2) mg/dL Phosphorus 2.2 L (2.5-4.5) mg/dL Magnesium 1.4 L (1.6-2.3) mg/dL Total Bilirubin 2.8 H (0.2-1.3) mg/dL AST 31 (17-59) U/L ALT 22 (4-49) U/L Alkaline Phosphatase 68 (38-126) U/L Ammonia (<30) umol/L Troponin I 0.015 (0.000-0.034) ng/mL NT-Pro-B Natriuret Pep 3980 pg/mL Total Protein 8.0 (6.3-8.2) g/dL Albumin 4.6 (3.5-5.0) g/dL Lipase 45 (23-300) U/L - EKG Data -: EKG Interpreted by Me (EKG is sinus tachycardia 108 OK 129 QRS 99 QTc 450) Critical Care Time Critical Care Time: Yes Total Critical Care Time: 31 Disposition Clinical Impression: Dehydration, Hypomagnesemia, Alcohol withdrawal, Elevated troponin, Hypokalemia, DTs (delirium tremens) Disposition: ADMITTED IP TO THIS HOSP Condition: Stable Is patient prescribed a controlled substance at d/c from ED?: No Time of Disposition: 18:00
[2023-02-27 16:50] LABS: Basophils % (A) 0 %; Eosinophils % (A) 0 %; HCT 51.4 % (39.0-53.0); HGB 17.5 gm/dL (13.0-17.5); Lymphocytes # (A) 1.9 k/uL (1.0-4.8); Lymphocytes % (A) 13 %; MCH 30.9 pg (25.0-35.0); MCV 90.8 fL (80.0-100.0); Mean Platelet Volume 9.6; Monocytes # (A) 1.1 k/uL (0-1.0); Monocytes % (A) 7 %; Neutrophils # (A) 11.4 k/uL (1.3-7.7); Neutrophils % (A) 78 %; Platelet Count 148 k/uL (150-450); RBC 5.67 m/uL (4.30-5.90); RDW 13.4 % (11.5-15.5); WBC 14.6 k/uL (3.8-10.6)
[2023-02-27 17:04] LABS: Lactic Acid, Venous 2.4 mmol/L (0.7-2.0)
[2023-02-27 17:08] LABS: Partial Thromboplastin Time 22.3 sec (22.0-30.0)
[2023-02-27 17:18] LABS: ALT 22 U/L (4-49); AST 31 U/L (17-59); African American GFR (CKD) >90 (>60 ml/min/1.73 sqM); Albumin 4.6 g/dL (3.5-5.0); Alkaline Phosphatase 68 U/L (38-126); Anion Gap 14 mmol/L; Blood Urea Nitrogen 21 mg/dL (9-20); Calcium 9.1 mg/dL (8.4-10.2); Carbon Dioxide 31 mmol/L (22-30); Chloride 89 mmol/L (98-107); Glucose 121 mg/dL (74-99); Lipase 45 U/L (23-300); Magnesium 1.4 mg/dL (1.6-2.3); Non-African American GFR(CKD) 83 (>60 ml/min/1.73 sqM); Phosphorus 2.2 mg/dL (2.5-4.5); Potassium 2.9 mmol/L (3.5-5.1); Sodium 134 mmol/L (137-145); Total Bilirubin 2.8 mg/dL (0.2-1.3)
[2023-02-27 17:26] LABS: NT-Pro-B-Type Natriuretic Pept 3980 pg/mL
[2023-02-27] MEDS ORDERED: THIAMINE 100 MG/ML 2 ML VIAL IM STA (18:13)
[2023-02-27] MEDS ORDERED: ONDANSETRON 4 MG/2 ML VIAL IVP PRN (18:13)
[2023-02-27] MEDS ORDERED: NALOXONE 0.4 MG/ML 1 ML VIAL IV PRN (18:13)
[2023-02-27] MEDS ORDERED: MORPHINE SULFATE 4 MG/ML SYRINGE IV PRN (18:13)
[2023-02-27] MEDS ORDERED: LORazepam 2 MG/ML INJ IV PRN ×3 (18:13)
[2023-02-27] MEDS: POTASSIUM CHLORIDE 10 MEQ in WATER FOR INJECTION 1 100ML.BAG IVPB SCH ×3 (18:57→23:00)
[2023-02-27] MEDS: DEXTROSE 5%-0.45% NACL 1,000 ML IV SCH (18:58)
--- NOTE | 2023-02-27 20:35 | XR ---
EXAMINATION TYPE: XR chest 1V DATE OF EXAM: 02/27/2023 8:30 PM COMPARISON: Chest x-ray 08/27/2022 TECHNIQUE: XR chest 1V . CLINICAL INDICATION:Male, 57 years old with history of htn; FINDINGS: Lungs/Pleura: There is no evidence of pleural effusion, focal consolidation, or pneumothorax. Left b asilar atelectasis. Pulmonary vascularity: Unremarkable. Heart/mediastinum: Cardiomediastinal silhouette is unremarkable. Musculoskeletal: No acute osseous pathology. IMPRESSION: No acute cardiopulmonary disease/process.
[2023-02-27] MEDS ORDERED: METOPROLOL SUCCINATE (ER) 50 MG TAB.ER.24H PO SCH (21:00)
[2023-02-27] MEDS ORDERED: PANTOPRAZOLE 40 MG TABLET PO SCH (21:00)
[2023-02-27] MEDS ORDERED: PRAVASTATIN SODIUM 80 MG TAB PO SCH (21:00)
[2023-02-28] MEDS: POTASSIUM CHLORIDE 10 MEQ in WATER FOR INJECTION 1 100ML.BAG IVPB SCH (01:00)
[2023-02-28 08:23] LABS: Basophils # (A) 0.01 X 10*3/uL (0.00-0.10); Basophils % (A) 0.1 %; Eosinophils # (A) 0.05 X 10*3/uL (0.04-0.35); Eosinophils % (A) 0.4 %; HCT 46.6 % (39.6-50.0); HGB 15.9 d/dL (12.0-15.0); Lymphocytes # (A) 2.39 X 10*3/uL (0.90-5.00); Lymphocytes % (A) 19.1 %; MCH 30.9 pg (27.0-32.0); MCHC 34.1 d/dL (32.0-37.0); MCV 90.5 FL (80.0-97.0); Mean Platelet Volume 11.4 FL (9.5-12.2); Monocytes # (A) 1.17 X 10*3/uL (0.20-1.00); Monocytes % (A) 9.4 %; NRBC Per 100 WBC 0 X 10*3/uL (0.00-0.01); Neutrophils # (A) 8.83 X 10*3/uL (1.80-7.70); Neutrophils % (A) 70.5 %; Platelet Count 119 X 10*3/uL (140-440); RBC 5.15 X 10*6/uL (4.40-5.60); WBC 12.51 X 10*3/uL (4.50-10.00)
[2023-02-28 08:44] LABS: Magnesium 1.8 mg/dL (1.5-2.4); Phosphorus 3.7 mg/dL (2.4-5.1)
[2023-02-28] MEDS ORDERED: PANTOPRAZOLE 40 MG/10 ML VIAL IV SCH (09:00)
[2023-02-28] MEDS ORDERED: THIAMINE 100 MG TAB PO SCH (09:00)
[2023-02-28 09:02] LABS: ALT 18 U/L (10-49); AST 22 U/L (14-35); Albumin 3.9 d/dL (3.8-4.9); Albumin/Globulin Ratio 1.86 Ratio (1.60-3.17); Alkaline Phosphatase 61 U/L (41-126); BUN/Creat Ratio 17.44 Ratio (12.00-20.00); Blood Urea Nitrogen 15.7 mg/dL (9.0-27.0); Calcium 8.9 mg/dL (8.7-10.3); Carbon Dioxide 30.7 mmol/L (21.6-31.8); Chloride 95 mmol/L (96-109); Globulin 2.1 d/dL (1.6-3.3); Glucose 108 mg/dL (70-110); Potassium 3.2 mmol/L (3.5-5.5); Sodium 140 mmol/L (135-145); Total Bilirubin 2.1 mg/dL (0.3-1.2)
[2023-02-28 10:22] LABS: African American GFR (CKD) >90 (>60 ml/min/1.73 sqM); Anion Gap 9 mmol/L; Blood Urea Nitrogen 18 mg/dL (9-20); Calcium 8.7 mg/dL (8.4-10.2); Carbon Dioxide 30 mmol/L (22-30); Chloride 95 mmol/L (98-107); Glucose 103 mg/dL (74-99); Non-African American GFR(CKD) >90 (>60 ml/min/1.73 sqM); Sodium 134 mmol/L (137-145)
[2023-02-28 10:25] LABS: Potassium 3.5 mmol/L (3.5-5.1)
--- NOTE | 2023-02-28 10:31 | P.CRDCN ---
History of Present Illness History of present illness: HISTORY OF PRESENT ILLNESS: This is a 57-year-old male with a past medical history significant for hypertension, hyperlipidemia, GERD, paroxysmal atrial fibrillation, frequent alcohol use, and meningitis. 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 We have been asked to see the patient in consultation for elevated BNP. Patient examined at the bedside. Patient states he was feeling in his usual state of health until Friday. Patient states that on Friday he began to feel unwell after going for a long walk. He states that he became nauseated and has been having multiple episodes of vomiting throughout the week. He denies any diarrhea. He denies any fever at home. He denied having any chest pain or shortness of breath. He states that he has been having significant anxiety this week. The patient states his last drink was on Friday night and reports having 2 drinks. The patient states he only treats occasionally however there is documentation of previous alcohol abuse. The patient also reports frequent marijuana use. * EKG reveals sinus tachycardia with no signs of acute ischemia * Chest xray no acute cardiopulmonary process * Laboratory data: WBC 12.51. Hemoglobin 15.9. Platelet count 119. Sodium 140. Potassium 3.2. BUN 15. Creatinine 0.90. Troponin negative 2. ProBNP 3980. * Current home cardiac medications include pravastatin 80 mg at night and metoprolol succinate 50 mg at night * Most recent echocardiogram obtained in August 2022 revealed ejection fraction 55-60%, mild pulmonary hypertension, mild mitral regurgitation, trace aortic regurgitation, and mild tricuspid regurgitation REVIEW OF SYSTEMS: At the time of my exam: CONSTITUTIONAL: Denies fever or chills. HEENT: Denies blurred vision, vision changes, or eye pain. Denies hemoptysis CARDIOVASCULAR: Denies chest pain. Denies orthopnea. Denies PND. Denies palpitations RESPIRATORY: Denies shortness of breath. GASTROINTESTINAL: Denies abdominal pain. Denies nausea or vomiting. HEMATOLOGIC: Denies bleeding disorders. GENITOURINARY: Denies any blood in urine. SKIN: Denies pruitis. Denies rash. PHYSICAL EXAM: VITAL SIGNS: Reviewed. GENERAL: Well-developed in no acute distress. HEENT: Head is normocephalic. Pupils are equal, round. Sclerae anicteric. Mucous membranes of the mouth are moist. Neck supple. No JVD or thyromegaly LUNGS: Respirations even and unlabored. Lungs essentially clear to auscultation bilaterally. HEART: Regular rate and rhythm. S1 and S2 heard. ABDOMEN: Soft. Nondistended. Nontender. EXTREMITIES: Normal range of motion. No clubbing or cyanosis. Peripheral pulses intact. No lower extremity edema NEUROLOGIC: Awake and alert. Oriented x 3. ASSESSMENT: Nausea and vomiting Hypokalemia Thrombocytopenia Hypomagnesemia Elevated BNP of unclear significance, patient appears euvolemic with no signs of acute heart failure Hypertension Hyperlipidemia Paroxysmal atrial fibrillation, not on anticoagulation due to [id number] of 1 (hx of htn) History of cardioversion, August 2022 History of meningitis requiring mechanical ventilation, August 2022 Frequent alcohol use with documented history of alcohol abuse Marijuana use Anxiety PLAN: Obtain 2-D echo to assess cardiac structure and function Despite elevated BNP patient is euvolemic upon examination with no signs of acute heart failure. No indication for diuretics at this time Abstinence from alcohol and marijuana recommended Further recommendations pending patient's course Nurse practitioner note has been reviewed by physician. Signing provider agrees with the documented findings, assessment, and plan of care. Dr. Hensley's Addendum I agree with above plan. I will add aspirin 81 mg due to his [id number] score 1. (Hypertension). I have personally seen and examined the patient. I have personally performed all the components of medical care documented above including detailed hisotry, review of system, physican exam, MDM and formulating the assessment and plan. I have personally reviewed the relevant labs, imaging and other diagnostics. I have discussed this in detail with my COMPUTER SECURITY COORDINATOR who has helped me with this d ocumentation. I have carefully reviewed this document before finalizing. Total time spent reviewing medical chart, examining patient, counselling patient and documentation [45] mins Thank you for letting cardiology team participating in this patient's care. Dr. Parker Hensley MD Cardiovascular Disease Past Medical History Past Medical History: Hypertension History of Any Multi-Drug Resistant Organisms: None Reported Past Surgical History: Appendectomy, Orthopedic Surgery, Tonsillectomy Additional Past Surgical History / Comment(s): surgery for brain bleed 2019 or 2020 (family unsure) Past Psychological History: No Psychological Hx Reported Smoking Status: Never smoker Past Alcohol Use History: Daily Past Drug Use History: None Reported, Marijuana - Past Family History family Family Medical History: Cancer Additional Family Medical History / Comment(s): no CAD Medications and Allergies Home Medications Medication Instructions Recorded Confirmed Type Metoprolol Succinate (ER) [Toprol 50 mg PO HS 02/27/23 02/27/23 History Xl] Omeprazole [PriLOSEC] 20 mg PO HS 02/27/23 02/27/23 History Pravastatin Sodium [Pravachol] 80 mg PO HS 02/27/23 02/27/23 History methocarbamoL [Methocarbamol] 750 mg PO TID PRN 02/27/23 02/27/23 History Allergies Allergy/AdvReac Type Severity Reaction Status Date / Time Penicillins Allergy Unknown Verified 02/27/23 17:20 Childhood Physical Exam Vitals: Vital Signs Temp Pulse Resp BP Pulse Ox 02/28/23 07:00 54 L 16 123/75 97 02/28/23 03:45 66 16 114/75 97 02/28/23 01:00 64 15 121/79 96 02/27/23 22:00 65 16 154/91 95 02/27/23 18:35 106 H 20 97 02/27/23 17:49 99.4 F 89 19 145/85 95 02/27/23 14:40 98.7 F 75 16 153/100 96 Results 02/28/23 03:55 02/28/23 09:16 Cardiac Enzymes 02/27/23 02/27/23 02/27/23 Range/Units 16:33 16:49 19:41 AST 31 (17-59) U/L Troponin I 0.015 0.016 (0.000-0.034) ng/mL 02/27/23 Range/Units 23:01 AST (17-59) U/L Troponin I 0.013 (0.000-0.034) ng/mL Coagulation 02/27/23 Range/Units 16:33 PT 11.0 (9.0-12.0) sec APTT 22.3 (22.0-30.0) sec CBC 02/27/23 02/28/23 Range/Units 16:33 03:55 WBC 14.6 H 12.51 H (3.8-10.6) k/uL RBC 5.67 5.15 (4.30-5.90) m/uL Hgb 17.5 15.9 H (13.0-17.5) gm/dL Hct 51.4 46.6 (39.0-53.0) % Plt Count 148 L 119 L (150-450) k/uL Comprehensive Metabolic Panel 02/27/23 Range/Units 16:49 Sodium 134 L (137-145) mmol/L Potassium 2.9 L (3.5-5.1) mmol/L Chloride 89 L (98-107) mmol/L Carbon Dioxide 31 H (22-30) mmol/L BUN 21 H (9-20) mg/dL Creatinine 0.99 (0.66-1.25) mg/dL Glucose 121 H (74-99) mg/dL Calcium 9.1 (8.4-10.2) mg/dL AST 31 (17-59) U/L ALT 22 (4-49) U/L Alkaline Phosphatase 68 (38-126) U/L Total Protein 8.0 (6.3-8.2) g/dL Albumin 4.6 (3.5-5.0) g/dL Current Medications Generic Name Dose Route Start Last Admin Trade Name Andrésq PRN Reason Stop Dose Admin Diazepam 5 mg 02/27/23 18:15 02/28/23 01:00 Diazepam 5 Mg/Ml 2 Ml Inj IVP 5 mg Q6H [facility] Administration Dextrose/Sodium Chloride 1,000 mls @ 20 mls/hr 02/27/23 18:15 02/27/23 18:58 Dextrose 5%-1/2ns Iv Soln IV 20 mls/hr .Q24H [facility] Administration Lorazepam 1 mg 02/27/23 18:13 Lorazepam 2 Mg/Ml Inj IV Q1HR PRN CIWA 10 to 15 Lorazepam 1 mg 02/27/23 18:13 Lorazepam 2 Mg/Ml Inj IV Q2HR PRN CIWA 8 or 9 Lorazepam 2 mg 02/27/23 18:13 Lorazepam 2 Mg/Ml Inj IV 03/01/23 18:13 Q10M PRN CIWA 16 or higher Metoprolol Succinate 50 mg 02/27/23 21:00 02/27/23 23:24 Metoprolol Succinate (Er) 50 Mg Tab.Er.24h PO 50 mg HS [facility] Administration Morphine Sulfate 4 mg 02/27/23 18:13 Morphine Sulfate 4 Mg/Ml Syringe IV Q4HR PRN Severe Pain (Scale 7 to 10) Naloxone HCl 0.2 mg 02/27/23 18:13 Naloxone 0.4 Mg/Ml 1 Ml Vial IV Q2M PRN Opioid Reversal Ondansetron HCl 4 mg 02/27/23 18:13 Ondansetron 4 Mg/2 Ml Vial IVP Q8HR PRN Nausea And Vomiting Pantoprazole Sodium 40 mg 02/28/23 09:00 Pantoprazole 40 Mg/10 Ml Vial IV DAILY [facility] Pravastatin Sodium 80 mg 02/27/23 21:00 02/27/23 23:24 Pravastatin Sodium 80 Mg Tab PO 80 mg HS [facility] Administration Thiamine HCl 100 mg 02/28/23 09:00 Thiamine 100 Mg Tab PO DAILY [facility] 02/28/23 03:55 02/27/23 16:49
[2023-02-28 15:08] VITALS: PULSE 64
[2023-02-28] MEDS ORDERED: IPRATROPIUM-ALBUTEROL 3 ML NEB INHALATION SCH (16:00)
[2023-02-28] MEDS: IOPAMIDOL CONTRAST (ORAL USE) VIAL PO PRN ×2 (16:22→17:07)
--- NOTE | 2023-02-28 16:30 | HP ---
HISTORY AND PHYSICAL Past medical history of hypertension, dyslipidemia, GERD, paroxysmal atrial fib, chronic alcohol abuse, meningitis. 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 He has elevated white count with left shift. We are going to get Infectious Disease to see him to rule out any kind of infection. He has had some nausea, vomiting. Denies any diarrhea. No atypical chest pain. No shortness of breath. He is an alcoholic. He might be going through alcohol withdrawal per his family. EKG shows sinus tach. Chest x-ray is negative. White count was 12, hemoglobin of 15.9, platelets 119. Sodium 140, potassium 3.2, creatinine 0.9. Troponins are negative. BNP is 3980. Cardiology has been consulted. Home medicines include metoprolol and losartan. Recent echo on August 2022 showed ejection fraction of 55% to 60%, pulmonary hypertension, trace aortic regurg, tricuspid regurg. Otherwise, 14-point review of systems is negative. PHYSICAL EXAMINATION: VITAL SIGNS: Reviewed. HEENT: Normocephalic, atraumatic. LUNGS: Decreased breath sounds. HEART: S1, S2. ABDOMEN: Soft. EXTREMITIES: No cyanosis, clubbing or edema. NEUROLOGIC: Cranial nerves intact. Nausea, vomiting, hyperkalemia, thrombocytopenia, hypomagnesemia, elevated BNP, pulmonary hypertension, hypertension, dyslipidemia, paroxysmal atrial fib, history of cardioversion, history of meningitis, marijuana use, anxiety. Echo, BNP, alcohol, CIWA protocol. Elevated white count. Dr. Ruiz consulted. Prognosis is guarded. Please see further orders. MMODL / IJN: [id number] /
[2023-02-28 17:34] VITALS: BP 128/76; RESP 16; TEMP 98.5
[2023-02-28] MEDS: DEXTROSE 5%-0.45% NACL 1,000 ML IV SCH (18:10)
--- NOTE | 2023-02-28 18:13 | CT ---
EXAMINATION TYPE: CT ChestAbdPelvis w con CT DLP: 638.1 mGycm, Automated exposure control for dose reduction was used. DATE OF EXAM: 02/28/2023 6:02 PM COMPARISON: 08/30/2022, 08/16/2022 CLINICAL INDICATION:Male, 57 years old with history of abd pain; PHH, Pain, N/V Technique: Multiple axial images of the chest, abdomen, and pelvis were obtained. Two-dimensional cor onal and sagittal reconstructions were obtained. Contrast used:100ML mL of Isovue 300 with IV Contrast, Oral contrast used: with Oral Contrast Findings: CHEST: LUNGS/ PLEURA: No focal consolidation, pneumothorax or effusion. Few scattered calcified granulomas n oted. No greater than 4 mm pulmonary nodules visualized. AIRWAY: Patent and unremarkable. HEART: Size within normal limits. Atherosclerosis of the coronary arteries. MEDIASTINUM: No gross evidence of adenopathy. VASCULATURE: No aortic aneurysm. MUSCULOSKELETAL: No acute osseous abnormalities. Post fixation changes to the lower cervical and uppe r thoracic spine. Hardware appears intact. Remote side left rib fractures noted. SOFT TISSUES/LYMPH NODES: Unremarkable. LOWER NECK: No significant findings. ABDOMEN: ABDOMEN LIVER: Diffusely hypoattenuating parenchyma. GALLBLADDER AND BILE DUCTS: The gallbladder is surgically absent. PANCREAS: Unremarkable. SPLEEN: Unremarkable. ADRENAL GLANDS: Unremarkable. KIDNEYS AND URETERS: No evidence of hydronephrosis or renal calculus. The ureters are unremarkable. PELVIS BLADDER: Unremarkable REPRODUCTIVE: Unremarkable. ABDOMEN & PELVIS STOMACH AND BOWEL: No evidence of bowel obstruction. Few scattered colonic diverticula are present. PERITONEUM: No evidence of pneumoperitoneum or free fluid. VASCULATURE: Mild atherosclerotic calcifications are present throughout the abdominal aorta and its b ranches. MUSCULOSKELETAL: No acute osseous abnormalities. Mild disc degeneration changes are present throughou t the thoracolumbar spine. LYMPH NODES: No gross evidence for lymphadenopathy. SOFT TISSUE/ABDOMINAL WALL: Fat-containing hernias bilaterally. Fat-containing umbilical hernia. IMPRESSION: 1. No evidence for acute thoracic or abdominal/pelvic process. 2. Hepatic steatosis. 3. Fat-containing umbilical and bilateral inguinal hernias. 4. Colonic diverticulosis.
[2023-02-28] MEDS ORDERED: SYMBICORT 160-4.5 MCG INHALER INHALATION SCH (20:00)
[2023-03-01] MEDS ORDERED: ASPIRIN 81 MG PO SCH (09:00)
== END 2023-02-28 19:33 | disposition home or self-care (01) | DRG 897 ==
LOC: EC 14:39 → 5NMEDONC 18:13
PROVIDERS: ADMIT Family Medicine; ATTEND Family Medicine
PROC: HZ2ZZZZ Detoxification Services for Substance Abuse Treatment (ICD-10-PCS; principal; 2023-02-27)
DX: F10.231 Alcohol dependence with withdrawal delirium (principal); R11.2 Nausea with vomiting, unspecified; Z88.0 Allergy status to penicillin; D69.6 Thrombocytopenia, unspecified; E83.42 Hypomagnesemia; E87.6 Hypokalemia; I10 Essential (primary) hypertension; E78.5 Hyperlipidemia, unspecified; I48.0 Paroxysmal atrial fibrillation; R00.0 Tachycardia, unspecified; E86.0 Dehydration; E78.00 Pure hypercholesterolemia, unspecified; R79.89 Other specified abnormal findings of blood chemistry; I08.3 Combined rheumatic disorders of mitral, aortic and tricuspid valves; Z79.01 Long term (current) use of anticoagulants; F41.9 Anxiety disorder, unspecified; I27.20 Pulmonary hypertension, unspecified; Z79.899 Other long term (current) drug therapy; Z86.61 Personal history of infections of the central nervous system; Z86.73 Personal history of transient ischemic attack (TIA), and cerebral infarction without residual deficits; Z71.41 Alcohol abuse counseling and surveillance of alcoholic; Z79.82 Long term (current) use of aspirin; Z79.51 Long term (current) use of inhaled steroids
CPT/HCPCS: 36415; 71045; 71260; 74177; 80048; 80053; 82140; 83605; 83690; 83735; 83880; 84100; 84145; 84484; 85025; 85610; 85730; 87040; 93005; 96361; 96365; 96366; 96372; 96375; 96376; 99291

== ENCOUNTER 2025-01-30 14:26 | Inpatient (IN) | payer BC, MEDICARE ==
--- NOTE | 2025-01-30 17:37 | ED ---
General Adult HPI - General Chief complaint: Nausea/Vomiting/Diarrhea Stated complaint: vomiting Time Seen by Provider: 01/30/25 15:17 Source: patient, family Mode of arrival: wheelchair - History of Present Illness Initial comments: Patient is a 59-year-old male past medical history of alcoholism, sober since [place] time presenting today for nausea and vomiting. Patient states that he has been having multiple episodes of nonbloody nonbilious emesis for the last 2 to 3 days with associated diarrhea. Stools are nonmelanotic and nonbloody. Patient states that he has been sober since [place] though did binge drink last night, approximately 5-6 drinks and suspects this may have worsened his symptoms. Presents today because not been able to keep anything down. He en dorses associated mild lightheadedness, endorses worsening of his chronic neck and back pain for which he has had multiple surgeries in the past. Denies recent falls. Denies any fevers at home. Denies abdominal pain, cough, shortness of breath, or chest pain. No history of CAD. Prior abdominal surgeries include a prior cholecystectomy and prior appendectomy. - Related Data Home Medications Medication Instructions Recorded Confirmed Aspirin EC [Ecotrin Low Dose] 81 mg PO HS 01/30/25 01/30/25 Metoprolol 50mg(Unknown) 1 tab PO HS 01/30/25 01/30/25 Rosuvastatin Calcium 5 mg PO DIRECTED 01/30/25 01/30/25 Allergies Allergy/AdvReac Type Severity Reaction Status Date / Time Penicillins Allergy Unknown Verified 01/30/25 19:33 Childhood Review of Systems ROS Statement: Those systems with pertinent positive or pertinent negative responses have been documented in the HPI. ROS Other: All systems not noted in ROS Statement are negative. Past Medical History Past Medical History: Hyperlipidemia, Hypertension Additional Past Medical History / Comment(s): MANUEL august 2022, mild pulmonary HTN, mild mitral and tricuspid regurgitation, menningitis august 2022 History of Any Multi-Drug Resistant Organisms: None Reported Past Surgical History: Appendectomy, Back Surgery, Orthopedic Surgery, Tonsillectomy Additional Past Surgical History / Comment(s): surgery for brain bleed 2018 or 2019 (family unsure) Past Anesthesia/Blood Transfusion Reactions: No Reported Reaction Past Psychological History: No Psychological Hx Reported Smoking Status: Never smoker Past Alcohol Use History: Daily Past Drug Use History: None Reported, Marijuana - Past Family History family Family Medical History: Cancer Additional Family Medical History / Comment(s): no CAD General Exam - General Exam Comments Initial Comments: PE: CONSTITUTIONAL: No apparent distress, ill-appearing, nontoxic SKIN: Warm, dry, no jaundice, hives or petechiae EYES: Pupils are equally round, extraocular movements intact without nystagmus, clear conjunctiva, non-icteric sclera HENT: Normocephalic, atraumatic, dry mucus membranes, oropharynx clear without exudates NECK: , Full range of motion, normal appearance PULMONARY: Clear to auscultation without wheezes, rhonchi, or rales, normal excursion, no accessory muscle use and no stridor CARDIOVASCULAR: Regular rate, rhythm, normal S1 and S2. No appreciated murmurs, rubs or gallops. Strong radial pulses with intact distal perfusion. No lower extremity edema GASTROINTESTINAL: Soft, active bowel sounds throughout, non-tender, non- distended, no palpable masses, no rebound or guarding. No hepatosplenomegaly MUSCULOSKELETAL: Extremities have no gross deformity, no edema, redness, or swelling. NEUROLOGIC:_a/o x 3, GCS 15, normal mentation and speech. Moves all extremities x 4 without motor or sensory deficit PSYCHIATRIC:_normal mood and affect, thought process is clear and linear Course Vital Signs 01/30/25 01/30/25 01/30/25 14:51 18:02 18:58 Temperature 99.9 F H 98.5 F Pulse Rate 10 L 94 76 Respiratory 18 19 20 Rate Blood Pressure 171/134 123/97 123/87 O2 Sat by Pulse 94 L 99 95 Oximetry 01/30/25 20:07 Temperature Pulse Rate 72 Respiratory 18 Rate Blood Pressure 113/83 O2 Sat by Pulse 96 Oximetry EKG Findings - EKG Comments: EKG Findings:: Sinus rhythm, rate 80 bpm, TN interval within acceptable limits, QT/QTc 462/500, prolonged, normal axis, artifact present, no significant ST elevations or depression no arrhythmia Medical Decision Making - Medical Decision Making Was pt. sent in by a medical professional or institution (, PA, WHITEWASHER, urgent care, hospital, or group home...) When possible be specific @ -No Did you speak to anyone other than the patient for history (EMS, parent, family, police, friend...)? What history was obtained from this source @ -No Did you review nursing and triage notes (agree or disagree)? Why? @ -I reviewed and agree with nursing and triage notes Were old charts reviewed (outside hosp., previous admission, EMS record, old EKG, old radiological studies, urgent care reports/EKG's, group home records)? Report findings @ -Medical records reviewed-Patient was last seen 02/27/2023 in our ER had presented at that time for intractable nausea and vomiting x 2 days. Reviewed chart and labs from that visit, at that time patient was diagnosed with dehydration, hypomagnesemia, alcohol withdrawal did have an elevated troponin and was hypokalemic Differential Diagnosis (chest pain, altered mental status, abdominal pain women, abdominal pain men, vaginal bleeding, weakness, fever, dyspnea, syncope, headache, dizziness, GI bleed, back pain, seizure, CVA, palpatations, mental health, musculoskeletal)? Differential diagnose remains broad over top considerations include gastroenteritis, hepatitis, UTI, small bowel obstruction, choledocholithiasis, diverticulitis, pancreatitis, ACS, alcohol withdrawal, alcohol abuse this is not all-inclusive list EKG interpreted by me (3pts min.). @ -As above X-rays interpreted by me (1pt min.). I personally reviewed chest x-ray see no evidence of consolidations I agree with radiologist interpretation CT interpreted by me (1pt min.). @ -None done U/S interpreted by me (1pt. min.). @ -None done What testing was considered but not performed or refused? (CT, X-rays, U/S, labs)? Why? CT abdomen pelvis was considered however patient's abdomen soft nontender he denies abdominal pain, at this point do not feel CT and pelvis indicated at this point What meds were considered but not given or refused? Why? @ -None Did you discuss the management of the patient with other professionals (professionals i.e. , PA, WHITEWASHER, lab, RT, psych nurse, executive secretary social welfare, crab catcher, teacher, sanitation officer, case maker)? Give summary @ -No Was smoking cessation discussed for >3mins.? @ -No Was critical care preformed (if so, how long)? @Yes 35 minutes Were there social determinants of health that impacted care today? How? (Homelessness, low income, unemployed, alcoholism, drug addiction, transportation, low edu. Level, literacy, decrease access to med. care, [facility], rehab)? @ -No Was there de-escalation of care discussed even if they declined (Discuss DNR or withdrawal of care, Hospice)? @ -No What co-morbidities impacted this encounter? (DM, HTN, Smoking, COPD, CAD, Cancer, CVA, ARF, Chemo, Hep., AIDS, mental health diagnosis, sleep apnea, morbid obesity)? @ -Alcoholism, hyperlipidemia, hypertension Was patient admitted / discharged? Hospital course, mention meds given and route, prescriptions, significant lab abnormalities, going to OR and other pertinent info. Admission-this is a pleasant 59-year-old gentleman has a past medical history as above, presenting today for 3 days intractable nausea and vomiting.Vital signs on arrival show a temperature of 99.9 degrees, reportedly pulse of 10 I suspect this is a typo, as on my assessment patient's rate appeared to have normal rate and rhythm, EKG showed normal sinus rhythm. Due to borderline fever, sepsis labs were ordered. Of note administration of antibiotics and obtaining labs was delayed as patient did spend a significant amount of time in the waiting room due to ED overflow capacity with multiple boarding patients. I did obtain patient's permission to begin his assessment in the waiting room and obtain his history there. Exam was significant for soft and nontender abdomen, patient does have a basin of clear emesis next to him. Discussed with patient plan for IV fluids, nausea and pain medication for neck and back pain, ordered dose of Rocephin given concern out of concern for sepsis due to borderline fever, N/V, comprehensive labs. On reassessment patient endorses improvement of symptoms. His labs were significant for White blood cell count 22.46, elevated neutrophils 18.2, potassium 2.7, chloride 83, MANUEL with creatinine 1.28, previously was 0.60 in 2022, lactic 5.5 I suspect this is from nausea, vomiting, dehydration and alcohol use, magnesium 1.5, total bilirubin 3.8 though remaining LFTs within normal limits. Troponin 0.038, patient denies any chest pain or shortness of breath I suspect this is secondary to demand ischemia. Ordered K and magnesium replacement. Will trend troponin. Updated pt to findings, discussed with pt plan for admission to which he was agreeable. Case discussed w/ Dr. Wilson who kindl y accepted pt for admission. Undiagnosed new problem with uncertain prognosis? @ -No Drug Therapy requiring intensive monitoring for toxicity (Heparin, Nitro, Insulin, Cardizem)? @ -No Were any procedures done? @ -No Diagnosis/symptom? Lactic acidosis, nausea and vomiting, dehydration, hypomagnesemia, hypokalemia, elevated troponin Acute, or Chronic, or Acute on Chronic? Acute Uncomplicated (without systemic symptoms) or Complicated (systemic symptoms)? Complicated Side effects of treatment? @ -No Exacerbation, Progression, or Severe Exacerbation? @ -No Poses a threat to life or bodily function? How? (Chest pain, USA, ME, pneumonia, PE, COPD, DKA, ARF, appy, cholecystitis, CVA, Diverticulitis, Homicidal, Suicidal, threat to staff... and all critical care pts) @ -[Yes - Lab Data Result diagrams: 01/30/25 17:56 01/30/25 17:56 Lab Results 01/30/25 01/30/25 01/30/25 Range/Units 17:56 17:56 17:56 WBC 22.46 H (4.50-10.00) 10*3/uL RBC 6.35 H (4.40-5.60) 10*6/uL Hgb 19.0 H (13.0-17.0) g/dL Hct 54.5 H (39.6-50.0) % MCV 85.8 (80.0-97.0) fL MCH 29.9 (27.0-32.0) pg MCHC 34.9 (32.0-37.0) g/dL Plt Count 174 (140-440) 10*3/uL MPV 12.3 H (9.5-12.2) fL Immature Gran % (Auto) 1.0 % Neutrophils % 83.9 % Lymphocytes % 7.1 % Monocytes % 7.7 % Eosinophils % 0.0 % Basophils % 0.3 % Immature Gran # 0.23 H (0.00-0.04) 10*3/uL Neutrophils # 18.82 H (1.80-7.70) 10*3/uL Lymphocytes # 1.60 (0.90-5.00) 10*3/uL Monocytes # 1.74 H (0.20-1.00) 10*3/uL Eosinophils # 0.01 L (0.04-0.35) 10*3/uL Basophils # 0.06 (0.00-0.10) 10*3/uL PT 12.3 (10.0-12.5) sec INR 1.1 (<1.2) APTT 22.2 (22.0-30.0) sec Sodium 135 L (137-145) mmol/L Potassium 2.7 L* (3.5-5.1) mmol/L Chloride 83 L (98-107) mmol/L Carbon Dioxide 30 (22-30) mmol/L Anion Gap 22 mmol/L BUN 25 H (9-20) mg/dL Creatinine 1.28 H (0.66-1.25) mg/dL Est GFR (CKD-EPI)AfAm 69 (>60 ml/min/1.73 sqM) Est GFR (CKD-EPI)NonAf 60 (>60 ml/min/1.73 sqM) Glucose 126 H (74-99) mg/dL Lactic Ac Sepsis Rflx Plasma Lactic Acid Aiden (0.7-2.0) mmol/L Calcium 9.9 (8.4-10.2) mg/dL Magnesium (1.6-2.3) mg/dL Total Bilirubin 3.8 H (0.2-1.3) mg/dL AST 52 (17-59) U/L ALT 41 (4-49) U/L Alkaline Phosphatase 94 (38-126) U/L Troponin I (0.000-0.034) ng/mL Total Protein 8.9 H (6.3-8.2) g/dL Albumin 5.4 H (3.5-5.0) g/dL Amylase 81 (30-110) U/L 01/30/25 01/30/25 01/30/25 Range/Units 17:56 17:56 17:56 WBC (4.50-10.00) 10*3/uL RBC (4.40-5.60) 10*6/uL Hgb (13.0-17.0) g/dL Hct (39.6-50.0) % MCV (80.0-97.0) fL MCH (27.0-32.0) pg MCHC (32.0-37.0) g/dL Plt Count (140-440) 10*3/uL MPV (9.5-12.2) fL Immature Gran % (Auto) % Neutrophils % % Lymphocytes % % Monocytes % % Eosinophils % % Basophils % % Immature Gran # (0.00-0.04) 10*3/uL Neutrophils # (1.80-7.70) 10*3/uL Lymphocytes # (0.90-5.00) 10*3/uL Monocytes # (0.20-1.00) 10*3/uL Eosinophils # (0.04-0.35) 10*3/uL Basophils # (0.00-0.10) 10*3/uL PT (10.0-12.5) sec INR (<1.2) APTT (22.0-30.0) sec Sodium (137-145) mmol/L Potassium (3.5-5.1) mmol/L Chloride (98-107) mmol/L Carbon Dioxide (22-30) mmol/L Anion Gap mmol/L BUN (9-20) mg/dL Creatinine (0.66-1.25) mg/dL Est GFR (CKD-EPI)AfAm (>60 ml/min/1.73 sqM) Est GFR (CKD-EPI)NonAf (>60 ml/min/1.73 sqM) Glucose (74-99) mg/dL Lactic Ac Sepsis Rflx Plasma Lactic Acid Aiden 5.5 H* (0.7-2.0) mmol/L Calcium (8.4-10.2) mg/dL Magnesium 1.5 L (1.6-2.3) mg/dL Total Bilirubin (0.2-1.3) mg/dL AST (17-59) U/L ALT (4-49) U/L Alkaline Phosphatase (38-126) U/L Troponin I 0.038 H* (0.000-0.034) ng/mL Total Protein (6.3-8.2) g/dL Albumin (3.5-5.0) g/dL Amylase (30-110) U/L 01/30/25 Range/Units 18:53 WBC (4.50-10.00) 10*3/uL RBC (4.40-5.60) 10*6/uL Hgb (13.0-17.0) g/dL Hct (39.6-50.0) % MCV (80.0-97.0) fL MCH (27.0-32.0) pg MCHC (32.0-37.0) g/dL Plt Count (140-440) 10*3/uL MPV (9.5-12.2) fL Immature Gran % (Auto) % Neutrophils % % Lymphocytes % % Monocytes % % Eosinophils % % Basophils % % Immature Gran # (0.00-0.04) 10*3/uL Neutrophils # (1.80-7.70) 10*3/uL Lymphocytes # (0.90-5.00) 10*3/uL Monocytes # (0.20-1.00) 10*3/uL Eosinophils # (0.04-0.35) 10*3/uL Basophils # (0.00-0.10) 10*3/uL PT (10.0-12.5) sec INR (<1.2) APTT (22.0-30.0) sec Sodium (137-145) mmol/L Potassium (3.5-5.1) mmol/L Chloride (98-107) mmol/L Carbon Dioxide (22-30) mmol/L Anion Gap mmol/L BUN (9-20) mg/dL Creatinine (0.66-1.25) mg/dL Est GFR (CKD-EPI)AfAm (>60 ml/min/1.73 sqM) Est GFR (CKD-EPI)NonAf (>60 ml/min/1.73 sqM) Glucose (74-99) mg/dL Lactic Ac Sepsis Rflx Y Plasma Lactic Acid Aiden (0.7-2.0) mmol/L Calcium (8.4-10.2) mg/dL Magnesium (1.6-2.3) mg/dL Total Bilirubin (0.2-1.3) mg/dL AST (17-59) U/L ALT (4-49) U/L Alkaline Phosphatase (38-126) U/L Troponin I (0.000-0.034) ng/mL Total Protein (6.3-8.2) g/dL Albumin (3.5-5.0) g/dL Amylase (30-110) U/L Disposition Clinical Impression: Nausea vomiting and diarrhea, Dehydration, Lactic acidosis, Hypomagnesemia, Hypokalemia, Elevated troponin Disposition: ADMITTED IP TO THIS HOSP Condition: Stable
[2025-01-30] MEDS: SODIUM CHLORIDE 0.9% 1,000 ML IV SCH ×2 (17:53→21:45)
[2025-01-30] MEDS: ACETAMINOPHEN IV (For NPO) 1,000 MG in EMPTY BAG 1 BAG IVPB STA (17:54)
[2025-01-30] MEDS: FAMOTIDINE 20 MG/2 ML VIAL IV STA (18:04)
[2025-01-30] MEDS: ONDANSETRON 4 MG/2 ML VIAL IVP STA ×2 (18:08→18:16)
[2025-01-30 18:10] LABS: Basophils # (A) 0.06 10*3/uL (0.00-0.10); Basophils % (A) 0.3 %; Eosinophils # (A) 0.01 10*3/uL (0.04-0.35); HCT 54.5 % (39.6-50.0); Lymphocytes % (A) 7.1 %; MCH 29.9 pg (27.0-32.0); MCHC 34.9 g/dL (32.0-37.0); MCV 85.8 fL (80.0-97.0); Mean Platelet Volume 12.3 fL (9.5-12.2); Monocytes # (A) 1.74 10*3/uL (0.20-1.00); Monocytes % (A) 7.7 %; Neutrophils # (A) 18.82 10*3/uL (1.80-7.70); Neutrophils % (A) 83.9 %; Platelet Count 174 10*3/uL (140-440); RBC 6.35 10*6/uL (4.40-5.60); RDW 12.9 % (11.5-14.5); WBC 22.46 10*3/uL (4.50-10.00)
[2025-01-30] MEDS: HYDROmorphone 1 MG/ML 1 ML SYRINGE IVP STA ×2 (18:12→20:29)
[2025-01-30 18:22] LABS: INR 1.1 (<1.2); Partial Thromboplastin Time 22.2 sec (22.0-30.0); Prothrombin Time 12.3 sec (10.0-12.5)
[2025-01-30 18:37] LABS: African American GFR (CKD) 69 (>60 ml/min/1.73 sqM); Albumin 5.4 g/dL (3.5-5.0); Amylase 81 U/L (30-110); Anion Gap 22 mmol/L; Blood Urea Nitrogen 25 mg/dL (9-20); Calcium 9.9 mg/dL (8.4-10.2); Carbon Dioxide 30 mmol/L (22-30); Chloride 83 mmol/L (98-107); Glucose 126 mg/dL (74-99); Non-African American GFR(CKD) 60 (>60 ml/min/1.73 sqM); Sodium 135 mmol/L (137-145); Total Bilirubin 3.8 mg/dL (0.2-1.3); Total Protein 8.9 g/dL (6.3-8.2)
[2025-01-30 18:49] LABS: Potassium 2.7 mmol/L (3.5-5.1)
[2025-01-30 18:50] LABS: ALT 41 U/L (4-49); AST 52 U/L (17-59); Alkaline Phosphatase 94 U/L (38-126)
[2025-01-30] MEDS: LACTATED RINGERS 1,000 ML IV ONE (20:03)
--- NOTE | 2025-01-30 20:06 | XR ---
EXAMINATION TYPE: XR chest 2V DATE OF EXAM: 01/30/2025 8:00 PM COMPARISON: None. CLINICAL INDICATION: Male, 59 years old with history of elevated tropp n/v; [facility] TECHNIQUE: XR chest 2V Frontal and lateral views of the chest. FINDINGS: Lungs/Pleura: There is no evidence of pleural effusion, focal consolidation, or pneumothorax. Pulmonary vascularity: Unremarkable. Heart/mediastinum: Cardiomediastinal silhouette is unremarkable. Musculoskeletal: No acute osseous pathology. Partially visualized cervical spine fusion hardware. Other findings: None IMPRESSION: No acute cardiopulmonary disease/process. [facility], , 01/30/2025 8:04 PM
[2025-01-30 20:10] VITALS: RESP 18
[2025-01-30] MEDS: ORPHENADRINE 30 MG/ML 2 ML VIAL IVP STA (20:25)
[2025-01-30] MEDS ORDERED: NALOXONE 0.4 MG/ML 1 ML VIAL IV PRN (20:31)
[2025-01-30] MEDS ORDERED: traMADol 50 MG TAB PO PRN (20:31)
[2025-01-30] MEDS ORDERED: ACETAMINOPHEN TAB 325 MG TAB PO PRN (20:31)
[2025-01-30] MEDS ORDERED: LORazepam 1 MG/0.5 ML VIAL IV PRN (20:31)
[2025-01-30] MEDS ORDERED: LORazepam 1 MG TAB PO PRN ×3 (20:31)
[2025-01-30] MEDS: LACTATED RINGERS 1,000 ML IV SCH (20:31)
[2025-01-30] MEDS: POTASSIUM CHLORIDE ER 20 MEQ TAB.ER PO STA (21:19)
[2025-01-30] MEDS: MAGNESIUM SULFATE-D5W PMX 1 GM in DEXTROSE/WATER 1 100ML.BAG IVPB SCH (21:37)
[2025-01-30] MEDS: THIAMINE 100 MG/ML 2 ML VIAL IM STA (21:38)
[2025-01-30] MEDS: POTASSIUM CHLORIDE 20 MEQ in WATER FOR INJECTION 1 100ML.BAG IVPB STA (23:58)
[2025-01-31] MEDS: metroNIDAZOLE-NS PMX 500 MG in SALINE 1 100ML.BAG IVPB STA (00:06)
[2025-01-31] MEDS: HYDROmorphone 1 MG/ML 1 ML SYRINGE IVP PRN (02:02)
--- NOTE | 2025-01-31 02:25 | P.HPIM ---
History of Present Illness H&P Date: 01/30/25 Chief Complaint: Nausea and vomiting for the past three days 59-year-old male patient with a history of high blood pressure and high cholesterol who presented with nausea and vomiting for the past three days. The symptoms began on Friday night after consuming 4-5 alcoholic drinks. The patient reports ongoing vomiting, diarrhea, and a low-grade fever. He has been unable to keep anything down, including his regular medications. He reports feeling tired and weak, which prompted him to seek medical attention. He denies any abdominal pain other than discomfort associated with vomiting. The patient has not attempted any home remedies or [id number] treatments. He reports quitting alcohol consumption around [place] time and starting a gym routine. He had 4-5 alcoholic drinks on the Friday prior to symptom onset, breaking his period of abstinence. The patient occasionally smokes marijuana. He denies cigarette smoking or the use of other illicit drugs.. Past medical history 1. Hypertension 2. Hypercholesterolemia review of systems Pertinent positives as noted in HPI. All other systems were reviewed and are negative Constitutional: Positive for fatigue and fever (low-grade). Gastrointestinal: Positive for nausea, vomiting, and diarrhea. Denies abdominal pain. Cardiovascular: Denies chest pain. Respiratory: Denies trouble breathing. Genitourinary: Denies trouble urinating. Musculoskeletal: Denies pain in legs. on exam Constitutional: No acute distress, conversant, pleasant Eyes: Anicteric sclerae, moist conjunctiva, Pupils equal round reactive to light ENMT: NC/AT Oropharynx clear, no erythema, or exudates Neck: Supple, no masses, or JVD No carotid bruits No thyromegaly Lungs: Clear to auscultation Clear to percussion Normal respiratory effort, no accessory muscle use Cardiovascular: Heart regular in rate and rhythm, No murmurs, gallops, or rubs No peripheral edema Abdominal: Soft Nontender, no guarding, rebound or rigidity Abdomen moving with respiration Normoactive bowel sounds Extremities: No digital cyanosis No clubbing Pedal pulses intact and symmetrical Radial pulses intact and symmetrical No calf tenderness Psychiatric: Alert and oriented to person, place and time Appropriate affect fair judgement Neuro Muscles Strength 5/5 in all 4 extremities Sensation to light touch grossly present throughout Cranial nerves II-XII grossly intact Past Medical History Past Medical History: Hyperlipidemia, Hypertension Additional Past Medical History / Comment(s): MANUEL august 2022, mild pulmonary HTN, mild mitral and tricuspid regurgitation, menningitis august 2022 History of Any Multi-Drug Resistant Organisms: None Reported Past Surgical History: Appendectomy, Back Surgery, Orthopedic Surgery, Tonsillectomy Additional Past Surgical History / Comment(s): surgery for brain bleed 2018 or 2019 (family unsure) Past Anesthesia/Blood Transfusion Reactions: No Reported Reaction Past Psychological History: No Psychological Hx Reported Smoking Status: Never smoker Past Alcohol Use History: Daily Past Drug Use History: None Reported, Marijuana - Past Family History family Family Medical History: Cancer Additional Family Medical History / Comment(s): no CAD Medications and Allergies Home Medications Medication Instructions Recorded Confirmed Type Aspirin EC [Ecotrin Low Dose] 81 mg PO HS 01/30/25 01/30/25 History Metoprolol 50mg(Unknown) 1 tab PO HS 01/30/25 01/30/25 History Rosuvastatin Calcium 5 mg PO DIRECTED 01/30/25 01/30/25 History Allergies Allergy/AdvReac Type Severity Reaction Status Date / Time Penicillins Allergy Unknown Verified 01/30/25 19:33 Childhood Physical Exam Vitals: Vital Signs Temp Pulse Resp BP Pulse Ox 01/30/25 20:07 72 18 113/83 96 01/30/25 18:58 98.5 F 76 20 123/87 95 01/30/25 18:02 94 19 123/97 99 01/30/25 14:51 99.9 F H 10 L 18 171/134 94 L Intake and Output 01/30/25 01/30/25 01/30/25 06:59 14:59 22:59 Other: Weight 82.554 kg Results CBC & Chem 7: 01/30/25 17:56 01/30/25 17:56 Labs: Abnormal Lab Results - Last 24 Hours (Table) 01/30/25 01/30/25 01/30/25 Range/Units 17:56 17:56 17:56 WBC 22.46 H (4.50-10.00) 10*3/uL RBC 6.35 H (4.40-5.60) 10*6/uL Hgb 19.0 H (13.0-17.0) g/dL Hct 54.5 H (39.6-50.0) % MPV 12.3 H (9.5-12.2) fL Immature Gran # 0.23 H (0.00-0.04) 10*3/uL Neutrophils # 18.82 H (1.80-7.70) 10*3/uL Monocytes # 1.74 H (0.20-1.00) 10*3/uL Eosinophils # 0.01 L (0.04-0.35) 10*3/uL Sodium 135 L (137-145) mmol/L Potassium 2.7 L* (3.5-5.1) mmol/L Chloride 83 L (98-107) mmol/L BUN 25 H (9-20) mg/dL Creatinine 1.28 H (0.66-1.25) mg/dL Glucose 126 H (74-99) mg/dL Plasma Lactic Acid Aiden 5.5 H* (0.7-2.0) mmol/L Magnesium (1.6-2.3) mg/dL Total Bilirubin 3.8 H (0.2-1.3) mg/dL Troponin I (0.000-0.034) ng/mL Total Protein 8.9 H (6.3-8.2) g/dL Albumin 5.4 H (3.5-5.0) g/dL 01/30/25 01/30/25 01/30/25 Range/Units 17:56 17:56 20:37 WBC (4.50-10.00) 10*3/uL RBC (4.40-5.60) 10*6/uL Hgb (13.0-17.0) g/dL Hct (39.6-50.0) % MPV (9.5-12.2) fL Immature Gran # (0.00-0.04) 10*3/uL Neutrophils # (1.80-7.70) 10*3/uL Monocytes # (0.20-1.00) 10*3/uL Eosinophils # (0.04-0.35) 10*3/uL Sodium (137-145) mmol/L Potassium (3.5-5.1) mmol/L Chloride (98-107) mmol/L BUN (9-20) mg/dL Creatinine (0.66-1.25) mg/dL Glucose (74-99) mg/dL Plasma Lactic Acid Aiden (0.7-2.0) mmol/L Magnesium 1.5 L (1.6-2.3) mg/dL Total Bilirubin (0.2-1.3) mg/dL Troponin I 0.038 H* 0.035 H* (0.000-0.034) ng/mL Total Protein (6.3-8.2) g/dL Albumin (3.5-5.0) g/dL 01/30/25 Range/Units 20:37 WBC (4.50-10.00) 10*3/uL RBC (4.40-5.60) 10*6/uL Hgb (13.0-17.0) g/dL Hct (39.6-50.0) % MPV (9.5-12.2) fL Immature Gran # (0.00-0.04) 10*3/uL Neutrophils # (1.80-7.70) 10*3/uL Monocytes # (0.20-1.00) 10*3/uL Eosinophils # (0.04-0.35) 10*3/uL Sodium (137-145) mmol/L Potassium (3.5-5.1) mmol/L Chloride (98-107) mmol/L BUN (9-20) mg/dL Creatinine (0.66-1.25) mg/dL Glucose (74-99) mg/dL Plasma Lactic Acid Aiden (0.7-2.0) mmol/L Magnesium 1.4 L (1.6-2.3) mg/dL Total Bilirubin (0.2-1.3) mg/dL Troponin I (0.000-0.034) ng/mL Total Protein (6.3-8.2) g/dL Albumin (3.5-5.0) g/dL Assessment and Plan Assessment: 59-year-old male with hypertension hyperlipidemia presented with repeated nausea vomiting for past 3 days I discussed case with ED doctor and accepted the admission for symptom control and possible alcohol induced gastritis with anticipated length of stay less than 2 midnights Dehydration Repeated nausea vomiting acute gastroenteritis, likely viral in origin versus alcohol induced, with associated dehydration. The onset of symptoms following alcohol consumption suggests a possible correlation, but food poisoning cannot be definitively ruled out. Differential diagnoses: 1. Viral gastroenteritis 2. Alcohol-induced gastritis 3. Food poisoning Hypokalemia/hypomagnesemia Initial potassium 2.7 Initial magnesium 1.5 Continue to replace and follow-up levels Hyperbilirubinemia Liver enzymes otherwise unremarkable AST ALT alkaline phosphatase all within normal limit Patient has history of cholecystectomy Plan: 1. Admit patient to the hospital for supportive care and monitoring. 2. Initiate IV fluid rehydration therapy. 3. Antiemetic medication as needed for nausea and vomiting. 4. Monitor electrolytes and renal function. 5. Gradual reintroduction of oral intake as tolerated. 6. Hold antihypertensive and cholesterol medications until oral intake improves. 7. Reassess need for resumption of home medications prior to discharge. 8. Educate patient on importance of maintaining sobriety and potential risks of alcohol use. 9. Discharge planning to include follow-up with primary care physician within 1 week of discharge for medication reconciliation and blood pressure monitoring. Blood work showing sodium 135 BUN 25 creatinine 1.28 Troponins initial 0.038 then dropped to 0.035 patient denies any chest pain Chest x-ray no acute pathology Elevated white count and hemoglobin 22, 19 respectively this is possibly secondary to dehydration Full code DVT prophylaxis Lovenox 40 mg subcu daily
[2025-01-31 06:05] LABS: Appearance,Urine Clear (Clear); Bilirubin,Urine Negative (Negative); Blood,Urine Negative (Negative); Color,Urine Yellow; Glucose,Urine (UA) Negative (Negative); Ketones,Urine 1+ (Negative); Leukocyte Esterase,Urine Negative (Negative); Nitrite,Urine Negative (Negative); PH, Urine 6.5 (5.0-8.0); Protein,Urine Trace (Negative); Specific Gravity,Urine 1.018 (1.001-1.035)
[2025-01-31] MEDS: ONDANSETRON 4 MG/2 ML VIAL IVP PRN (08:57)
--- NOTE | 2025-01-31 10:07 | P.CRDCN ---
History of Present Illness History of present illness: HISTORY OF PRESENTING ILLNESS This is a pleasant 59-year-old male past medical history significant for paroxysmal atrial fibrillation not on anticoagulation secondary to [id number] score of 1 who does not follow regularly with cardiology, hypertension, dyslipidemia and regular alcohol use. We have been asked to see in consultation for elevated troponin. The patient is seen and examined resting comfortably laying flat in bed in no acute distress. He indicates he has been t hrowing up for the previous 3 days. He has a history of heavy alcohol abuse however states he had been sober since around July of last year but decided to drink heavily last week. He has no chest pain, shortness of breath or palpitations. He endorses that he does not follow regularly with cardiology. DIAGNOSTICS EKG reveals sinus tachycardia. He is not currently on telemetry Chest xray negative for any acute cardiopulmonary process. Laboratory reviewed, WBC 22.4, hemoglobin 19, platelets 174, sodium 135, potassium 2.7, creatinine 1.28, lactic acid 5.5 repeat of 1.9, troponin 0.038, 0.035 and 0.021 and magnesium of 1.4. Current cardiac medications include rosuvastatin 5 mg daily, metoprolol succinate 50 mg daily and aspirin 81 mg daily. REVIEW OF SYSTEMS At the time of my exam: CONSTITUTIONAL: Denies fever or chills. CARDIOVASCULAR: Denies chest pain, shortness of breath, orthopnea, PND or palpitations. RESPIRATORY: Denies cough. GASTROINTESTINAL: Denies abdominal pain. Complains of nausea and vomiting x 3 days. MUSCULOSKELETAL: Denies myalgias. NEUROLOGIC: Denies numbness, tingling, headache or weakness. ENDOCRINE: Denies fatigue, weight change, polydipsia or polyurina. GENITOURINARY: Denies burning, hematuria or urgency with micturation. HEMATOLOGIC: Denies history of anemia or bleeding. PHYSICAL EXAMINATION Blood pressure 126/79 heart rate 54 afebrile and maintaining oxygen saturation on room air. CONSTITUTIONAL: No apparent distress. HEENT: Head is normocephalic. Pupils are equal, round. Sclerae anicteric. Mucous membranes of the mouth are moist. No JVD. No carotid bruit. CHEST EXAMINATION: Lungs are clear to auscultation. No chest wall tenderness is noted on palpation or with deep breathing. HEART EXAMINATION: Regular rate and rhythm. S1, S2 heard. No murmurs, gallops or rub. ABDOMEN: Soft, nontender. EXTREMITIES: 2+ peripheral pulses, no lower extremity edema and no calf tenderness. NEUROLOGIC EXAMINATION: Patient is awake, alert and oriented x3. ASSESSMENT Elevated troponin not related to myocardial injury likely related to renal abnormality Acute kidney injury Hypokalemia Hypomagnesia anemia Vomiting Dehydration Paroxysmal atrial fibrillation with a chads-vasc 1 not currently on anticoagulation currently maintaining sinus rhythm Hypertension Dyslipidemia Alcohol abuse Leukocytosis PLAN Obtain 2D echocardiogram and Doppler study to assess cardiac structure and function. Continue to replace electrolytes per protocol. Repeat BMP at 1800 today. Ongoing medical management per primary care team. Once electrolytes have normalized and GI concerns addressed he can be discharged home per medical team. Alcohol cessation recommended. Follow-up in the office with Dr. Hensley upon discharge. Thank you kindly for this consultation. Nurse Practitioner note has been reviewed, I agree with a documented findings and plan of care. Patient was seen and examined. Past Medical History Past Medical History: Hyperlipidemia, Hypertension Additional Past Medical History / Comment(s): MANUEL august 2022, mild pulmonary HTN, mild mitral and tricuspid regurgitation, menningitis august 2022 History of Any Multi-Drug Resistant Organisms: None Reported Past Surgical History: Appendectomy, Back Surgery, Orthopedic Surgery, Tons illectomy Additional Past Surgical History / Comment(s): surgery for brain bleed 2018 or 2019 (family unsure) Past Anesthesia/Blood Transfusion Reactions: No Reported Reaction Past Psychological History: No Psychological Hx Reported Smoking Status: Never smoker Past Alcohol Use History: Daily Additional Past Alcohol Use History / Comment(s): a beer daily Past Drug Use History: None Reported, Marijuana Additional Drug Use History / Comment(s): daily marijuana - Past Family History family Family Medical History: Cancer Additional Family Medical History / Comment(s): no CAD Medications and Allergies Home Medications Medication Instructions Recorded Confirmed Type Aspirin EC [Ecotrin Low Dose] 81 mg PO HS 01/30/25 01/30/25 History Metoprolol 50mg(Unknown) 1 tab PO HS 01/30/25 01/30/25 History Rosuvastatin Calcium 5 mg PO DIRECTED 01/30/25 01/30/25 History Allergies Allergy/AdvReac Type Severity Reaction Status Date / Time Penicillins Allergy Unknown Verified 01/30/25 19:33 Childhood Physical Exam Vitals: Vital Signs Temp Pulse Resp BP Pulse Ox 01/31/25 05:00 54 L 18 126/79 94 L 01/31/25 02:00 63 18 147/93 96 01/31/25 01:59 62 18 147/93 95 01/30/25 20:07 72 18 113/83 96 01/30/25 18:58 98.5 F 76 20 123/87 95 01/30/25 18:02 94 19 123/97 99 01/30/25 14:51 99.9 F H 10 L 18 171/134 94 L Intake and Output 01/30/25 01/31/25 01/31/25 22:59 06:59 14:59 Other: Weight 82.554 kg Results 01/30/25 17:56 01/30/25 17:56 Cardiac Enzymes 01/30/25 01/30/25 01/30/25 Range/Units 17:56 17:56 20:37 AST 52 (17-59) U/L Troponin I 0.038 H* 0.035 H* (0.000-0.034) ng/mL 01/31/25 Range/Units 03:30 AST (17-59) U/L Troponin I 0.021 (0.000-0.034) ng/mL Coagulation 01/30/25 Range/Units 17:56 PT 12.3 (10.0-12.5) sec APTT 22.2 (22.0-30.0) sec CBC 01/30/25 Range/Units 17:56 WBC 22.46 H (4.50-10.00) 10*3/uL RBC 6.35 H (4.40-5.60) 10*6/uL Hgb 19.0 H (13.0-17.0) g/dL Hct 54.5 H (39.6-50.0) % Plt Count 174 (140-440) 10*3/uL Comprehensive Metabolic Panel 01/30/25 Range/Units 17:56 Sodium 135 L (137-145) mmol/L Potassium 2.7 L* (3.5-5.1) mmol/L Chloride 83 L (98-107) mmol/L Carbon Dioxide 30 (22-30) mmol/L BUN 25 H (9-20) mg/dL Creatinine 1.28 H (0.66-1.25) mg/dL Glucose 126 H (74-99) mg/dL Calcium 9.9 (8.4-10.2) mg/dL AST 52 (17-59) U/L ALT 41 (4-49) U/L Alkaline Phosphatase 94 (38-126) U/L Total Protein 8.9 H (6.3-8.2) g/dL Albumin 5.4 H (3.5-5.0) g/dL Current Medications Generic Name Dose Route Start Last Admin Trade Name Freq PRN Reason Stop Dose Admin Acetaminophen 650 mg 01/30/25 20:31 Acetaminophen Tab 325 Mg Tab PO Q6HR PRN Mild Pain or Fever > 100.5 Enoxaparin Sodium 40 mg 01/31/25 09:00 Enoxaparin 40 Mg/0.4 Ml Syringe SQ DAILY CARLTON Folic Acid 1 mg 01/31/25 09:00 Folic Acid 1 Mg Tab PO DAILY CARLTON Hydromorphone HCl 1 mg 01/30/25 20:31 01/31/25 02:02 Hydromorphone 1 Mg/Ml 1 Ml Syringe IVP 1 mg Q3HR PRN Administration Severe Pain (Scale 7 to 10) Sodium Chloride 1,000 mls @ 130 mls/hr 01/30/25 20:15 01/31/25 03:38 Saline 0.9% IV 130 mls/hr .[id number] CARLTON Administration Lorazepam 0.5 mg 01/30/25 20:31 Lorazepam 0.5 Mg Tab PO Q4HR PRN Ciwa 4 To 5 Lorazepam 1 mg 01/30/25 20:31 Lorazepam 1 Mg Tab PO Q4HR PRN Ciwa 6 To 7 Lorazepam 2 mg 01/30/25 20:31 Lorazepam 1 Mg Tab PO Q2HR PRN Ciwa 10 or greater Lorazepam 2 mg 01/30/25 20:31 Lorazepam 1 Mg Tab PO Q3HR PRN Ciwa 8 To 9 Lorazepam 1 mg 01/30/25 20:31 Lorazepam 1 Mg Tab PO Q1HR PRN Alcohol Withdrawal Lorazepam 2 mg 01/30/25 20:31 Lorazepam 1 Mg/0.5 Ml Vial IV Q6HR PRN Seizures Multivitamins 1 each 01/31/25 09:00 Multivitamins, Thera 1 Each Tab PO DAILY CARLTON Naloxone HCl 0.2 mg 01/30/25 20:31 Naloxone 0.4 Mg/Ml 1 Ml Vial IV Q2M PRN Opioid Reversal Ondansetron HCl 4 mg 01/30/25 20:31 01/31/25 08:57 Ondansetron 4 Mg/2 Ml Vial IVP 4 mg Q8HR PRN Administration Nausea And Vomiting Pantoprazole Sodium 40 mg 01/31/25 09:00 Pantoprazole 40 Mg/10 Ml Vial IV DAILY CARLTON Thiamine HCl 100 mg 01/31/25 09:00 Thiamine 100 Mg Tab PO DAILY CARLTON Tramadol HCl 50 mg 01/30/25 20:31 Tramadol 50 Mg Tab PO Q6H PRN Moderate Pain (Scale 4 to 6) Intake and Output 01/30/25 01/31/25 01/31/25 22:59 06:59 14:59 Other: Weight 82.554 kg Patient Weight 02/01/25 06:59 Weight 82.554 kg 01/30/25 17:56 01/30/25 17:56
[2025-01-31 11:12] LABS: MCH 29.7 pg (27.0-32.0); MCHC 34.2 g/dL (32.0-37.0); MCV 86.9 fL (80.0-97.0); Mean Platelet Volume 11.9 fL (9.5-12.2); Platelet Count 111 10*3/uL (140-440); RBC 4.95 10*6/uL (4.40-5.60); RDW 13.7 % (11.5-14.5); WBC 11.54 10*3/uL (4.50-10.00)
[2025-01-31 11:19] LABS: HGB 14.7 g/dL (13.0-17.0)
[2025-01-31 11:25] LABS: African American GFR (CKD) >90 (>60 ml/min/1.73 sqM); Anion Gap 9 mmol/L; Blood Urea Nitrogen 19 mg/dL (9-20); Calcium 8.5 mg/dL (8.4-10.2); Carbon Dioxide 31 mmol/L (22-30); Chloride 96 mmol/L (98-107); Glucose 98 mg/dL (74-99); Magnesium 1.9 mg/dL (1.6-2.3); Non-African American GFR(CKD) >90 (>60 ml/min/1.73 sqM); Sodium 136 mmol/L (137-145)
[2025-01-31] MEDS: FOLIC ACID 1 MG TAB PO SCH (12:32)
[2025-01-31] MEDS: ENOXAPARIN 40 MG/0.4 ML SYRINGE SQ SCH (12:32)
[2025-01-31] MEDS: MULTIVITAMINS, THERA 1 EACH TAB PO SCH (12:32)
[2025-01-31] MEDS: THIAMINE 100 MG TAB PO SCH (12:32)
[2025-01-31] MEDS: PANTOPRAZOLE 40 MG/10 ML VIAL IV SCH (12:33)
[2025-01-31] MEDS: LORazepam 1 MG TAB PO PRN (12:46)
--- NOTE | 2025-01-31 13:52 | P.PN ---
Subjective Progress Note Date: 01/31/25 59 year old M with PMH of EtOH abuse, paroxysmal A-Fib, HTN, HLD presents to the ED for intractable N/V along with diarrhea. In the ED he underwent extensive evaluation. BP 171/134, T 99.9F, HR 94, RR 18, 94% on RA. CBC, Coag panel, CMP significant for WBC 22.46, RBC 6.35, Hg 19, Hct 54.5, Na 135, K 2.7, Cl 83, BUN 25, Cr 1.28, glu 126, T. Bili 3.8, alb 5.4. Amylase 81. Lactic acid 5.5-1.9. Trop 0.038-0.035-0.021. Mag 1.5. UA 1+ ketone with trace protein. EKG sinus rhythm with QTc of 500. CXR no acute process. Patient was admitted for further workup and management. Cardiology consulted recommending Echo. 01/31 Patient was seen and examined. He reports difficulty sleeping and nausea. No vomiting or chest pain. CBC and BMP significant for WBC 11.54, Plt 111, Na 136, K 3, Cl 96, bicarb 31. Mag 1.9. General: non toxic, no distress, appears at stated age Derm: warm, dry Head: atraumatic, normocephalic, symmetric Eyes: EOMI, no lid lag, anicteric sclera Mouth: no lip lesion, mucus membranes moist Cardiovascular: S1S2 ramirez, no murmur Lungs: Decreased BS bilateral, no rhonchi, no rales , no accessory muscle use Ext: no gross muscle atrophy, no edema, no contractures Neuro: no focal neuro deficits Psych: Alert, oriented, appropriate affect Based on my assessment of this patient, this patient meets a high complexity level of care. Viral gastroenteritis: Management as below. Alcohol induced gastritis: Zofran 4 mg IV TID PRN N/V. Protonix 40 mg IV QD. CLD and advance as tolerated. IV hydration as below. Leukocytosis with hemoconcentration: Improving with IV hydration. Continue NS at 130 cc/hr. Hypokalemia: KCl 40 meq PO x 1 today. Elevated Troponin: Cardiology recommending Echo. ACS ruled out. Hyperbilirubinemia likely due chronic EtOH abuse Thrombocytopenia likely due to chronic EtOH abuse Alcohol abuse: CIWA protocol with Ativan PRN per protocol. Paroxysmal A-Fib: Not on AC. Hold Metoprolol due to bradycardia. HTN: Monitor BP. Holding Metoprolol due to bradycardia. HLD: Crestor 5 mg PO QHS. Resolved: MANUEL, HypoMag Patient is pending clinical improvement. Repeat BMP and Mag in the AM. Follow up Echo. Possible DC tomorrow if symptoms continue to improve. CODE STATUS: FULL CODE DVT Prophylaxis: Lovenox SQ GI Prophylaxis: Protonix IV Designated medical POA if patient is not able to make medical decisions for themselves: I have reviewed the following business solutions consultant notes: Cardiology. I have reviewed the results of the following tests: CBC, BMP, Mag. I have ordered the following tests: CBC, Mag and BMP in the AM. I have discussed the care of this patient with the following independent historian: I have independently interpreted the following test below: I have discussed the management of this patient with the following physician: Objective - Vital Signs Vital signs: Vital Signs Temp 98.5 F 01/30/25 18:58 Pulse 54 L 01/31/25 05:00 Resp 18 01/31/25 05:00 BP 126/79 01/31/25 05:00 Pulse Ox 94 L 01/31/25 05:00 FiO2 Intake & Output 01/30/25 01/31/25 01/31/25 18:59 06:59 18:59 Weight 82.554 kg 82.554 kg - Labs CBC & Chem 7: 01/31/25 10:54 01/31/25 10:54 Labs: Abnormal Lab Results - Last 24 Hours (Table) 01/30/25 01/30/25 01/30/25 Range/Units 16:08 17:56 17:56 WBC 22.46 H (4.50-10.00) 10*3/uL RBC 6.35 H (4.40-5.60) 10*6/uL Hgb 19.0 H (13.0-17.0) g/dL Hct 54.5 H (39.6-50.0) % Plt Count (140-440) 10*3/uL MPV 12.3 H (9.5-12.2) fL Immature Gran # 0.23 H (0.00-0.04) 10*3/uL Neutrophils # 18.82 H (1.80-7.70) 10*3/uL Monocytes # 1.74 H (0.20-1.00) 10*3/uL Eosinophils # 0.01 L (0.04-0.35) 10*3/uL Sodium 135 L (137-145) mmol/L Potassium 2.7 L* (3.5-5.1) mmol/L Chloride 83 L (98-107) mmol/L Carbon Dioxide (22-30) mmol/L BUN 25 H (9-20) mg/dL Creatinine 1.28 H (0.66-1.25) mg/dL Glucose 126 H (74-99) mg/dL Plasma Lactic Acid Aiden (0.7-2.0) mmol/L Magnesium (1.6-2.3) mg/dL Total Bilirubin 3.8 H (0.2-1.3) mg/dL Troponin I (0.000-0.034) ng/mL Total Protein 8.9 H (6.3-8.2) g/dL Albumin 5.4 H (3.5-5.0) g/dL Urine Protein Trace H (Negative) Urine Ketones 1+ H (Negative) 01/30/25 01/30/25 01/30/25 Range/Units 17:56 17:56 17:56 WBC (4.50-10.00) 10*3/uL RBC (4.40-5.60) 10*6/uL Hgb (13.0-17.0) g/dL Hct (39.6-50.0) % Plt Count (140-440) 10*3/uL MPV (9.5-12.2) fL Immature Gran # (0.00-0.04) 10*3/uL Neutrophils # (1.80-7.70) 10*3/uL Monocytes # (0.20-1.00) 10*3/uL Eosinophils # (0.04-0.35) 10*3/uL Sodium (137-145) mmol/L Potassium (3.5-5.1) mmol/L Chloride (98-107) mmol/L Carbon Dioxide (22-30) mmol/L BUN (9-20) mg/dL Creatinine (0.66-1.25) mg/dL Glucose (74-99) mg/dL Plasma Lactic Acid Aiden 5.5 H* (0.7-2.0) mmol/L Magnesium 1.5 L (1.6-2.3) mg/dL Total Bilirubin (0.2-1.3) mg/dL Troponin I 0.038 H* (0.000-0.034) ng/mL Total Protein (6.3-8.2) g/dL Albumin (3.5-5.0) g/dL Urine Protein (Negative) Urine Ketones (Negative) 01/30/25 01/30/25 01/31/25 Range/Units 20:37 20:37 10:54 WBC 11.54 H (4.50-10.00) 10*3/uL RBC (4.40-5.60) 10*6/uL Hgb (13.0-17.0) g/dL Hct (39.6-50.0) % Plt Count 111 L (140-440) 10*3/uL MPV (9.5-12.2) fL Immature Gran # (0.00-0.04) 10*3/uL Neutrophils # (1.80-7.70) 10*3/uL Monocytes # (0.20-1.00) 10*3/uL Eosinophils # (0.04-0.35) 10*3/uL Sodium (137-145) mmol/L Potassium (3.5-5.1) mmol/L Chloride (98-107) mmol/L Carbon Dioxide (22-30) mmol/L BUN (9-20) mg/dL Creatinine (0.66-1.25) mg/dL Glucose (74-99) mg/dL Plasma Lactic Acid Aiden (0.7-2.0) mmol/L Magnesium 1.4 L (1.6-2.3) mg/dL Total Bilirubin (0.2-1.3) mg/dL Troponin I 0.035 H* (0.000-0.034) ng/mL Total Protein (6.3-8.2) g/dL Albumin (3.5-5.0) g/dL Urine Protein (Negative) Urine Ketones (Negative) 01/31/25 Range/Units 10:54 WBC (4.50-10.00) 10*3/uL RBC (4.40-5.60) 10*6/uL Hgb (13.0-17.0) g/dL Hct (39.6-50.0) % Plt Count (140-440) 10*3/uL MPV (9.5-12.2) fL Immature Gran # (0.00-0.04) 10*3/uL Neutrophils # (1.80-7.70) 10*3/uL Monocytes # (0.20-1.00) 10*3/uL Eosinophils # (0.04-0.35) 10*3/uL Sodium 136 L (137-145) mmol/L Potassium 3.0 L (3.5-5.1) mmol/L Chloride 96 L (98-107) mmol/L Carbon Dioxide 31 H (22-30) mmol/L BUN (9-20) mg/dL Creatinine (0.66-1.25) mg/dL Glucose (74-99) mg/dL Plasma Lactic Acid Aiden (0.7-2.0) mmol/L Magnesium (1.6-2.3) mg/dL Total Bilirubin (0.2-1.3) mg/dL Troponin I (0.000-0.034) ng/mL Total Protein (6.3-8.2) g/dL Albumin (3.5-5.0) g/dL Urine Protein (Negative) Urine Ketones (Negative)
[2025-01-31] MEDS: POTASSIUM CHLORIDE ER 20 MEQ TAB.ER PO STA (14:04)
[2025-01-31] MEDS: ASPIRIN 81 MG PO SCH (20:29)
[2025-01-31] MEDS: ATORVASTATIN 10 MG TAB PO SCH (20:29)
[2025-01-31] MEDS: LORazepam 0.5 MG TAB PO PRN (20:30)
[2025-02-01 06:47] LABS: HCT 41.1 % (39.6-50.0); MCH 30.4 pg (27.0-32.0); MCHC 34.1 g/dL (32.0-37.0); MCV 89.3 fL (80.0-97.0); Mean Platelet Volume 12.1 fL (9.5-12.2); Platelet Count 101 10*3/uL (140-440); RDW 13.5 % (11.5-14.5); WBC 8.92 10*3/uL (4.50-10.00)
[2025-02-01 07:01] LABS: African American GFR (CKD) >90 (>60 ml/min/1.73 sqM); Anion Gap 5 mmol/L; Blood Urea Nitrogen 19 mg/dL (9-20); Calcium 8.2 mg/dL (8.4-10.2); Carbon Dioxide 29 mmol/L (22-30); Chloride 103 mmol/L (98-107); Glucose 88 mg/dL (74-99); Magnesium 1.7 mg/dL (1.6-2.3); Non-African American GFR(CKD) >90 (>60 ml/min/1.73 sqM); Potassium 2.8 mmol/L (3.5-5.1); Sodium 137 mmol/L (137-145)
[2025-02-01] MEDS: POTASSIUM CHLORIDE 10 MEQ in WATER FOR INJECTION 1 100ML.BAG IVPB SCH (08:16)
[2025-02-01] MEDS: POTASSIUM CHLORIDE ER 20 MEQ TAB.ER PO STA (08:17)
--- NOTE | 2025-02-01 09:41 | P.PN ---
Subjective HISTORY OF PRESENTING ILLNESS This is a pleasant 59-year-old male past medical history significant for paroxysmal atrial fibrillation not on anticoagulation secondary to [id number] VASc score of 1 who does not follow regularly with cardiology, hypertension, dyslipidemia and regular alcohol use. We have been asked to see in consultation for elevated troponin. The patient is seen and examined resting comfortably laying flat in bed in no acute distress. He indicates he has been throwing up for the previous 3 days. He has a history of heavy alcohol abuse however states he had been sober since around July of last year but decided to drink heavily last week. He has no chest pain, shortness of breath or palpitations. He endorses that he does not follow regularly with cardiology. DIAGNOSTICS EKG reveals sinus tachycardia. He is not currently on telemetry Chest xray negative for any acute cardiopulmonary process. Laboratory reviewed, WBC 22.4, hemoglobin 19, platelets 174, sodium 135, potassium 2.7, creatinine 1.28, lactic acid 5.5 repeat of 1.9, troponin 0.038, 0.035 and 0.021 and magnesium of 1.4. Current cardiac medications include rosuvastatin 5 mg daily, metoprolol succinate 50 mg daily and aspirin 81 mg daily. 02/01/2025 Patient seen and examined sitting up in bed in no acute distress. Overall he endorses feeling much better with no further nausea or vomiting. Laboratory data reviewed, CBC unremarkable, sodium 137, potassium 2.8, creatinine 0.71 and magnesium 1.7. Currently receiving IV potassium. Blood pressure 137/69 heart rate 75 afebrile maintaining oxygen saturation on room air. Echocardiogram o rdered yesterday is pending. PHYSICAL EXAMINATION Blood pressure 126/79 heart rate 54 afebrile and maintaining oxygen saturation on room air. CONSTITUTIONAL: No apparent distress. HEENT: Head is normocephalic. Pupils are equal, round. Sclerae anicteric. Mucous membranes of the mouth are moist. No JVD. No carotid bruit. CHEST EXAMINATION: Lungs are clear to auscultation. No chest wall tenderness is noted on palpation or with deep breathing. HEART EXAMINATION: Regular rate and rhythm. S1, S2 heard. No murmurs, gallops or rub. ABDOMEN: Soft, nontender. EXTREMITIES: 2+ peripheral pulses, no lower extremity edema and no calf tenderness. NEUROLOGIC EXAMINATION: Patient is awake, alert and oriented x3. ASSESSMENT Elevated troponin not related to myocardial injury likely related to renal ab normality Acute kidney injury Hypokalemia Hypomagnesia anemia Vomiting Dehydration Paroxysmal atrial fibrillation with a chads-vasc 1 not currently on anticoagulation currently maintaining sinus rhythm Hypertension Dyslipidemia Alcohol abuse Leukocytosis PLAN Clinically stable from a cardiac perspective, echo pending. Ongoing electrolyte replacement per primary care team. Alcohol cessation recommended. Follow-up in the office with Dr. Hensley upon discharge. Nurse Practitioner note has been reviewed, I agree with a documented findings and plan of care. Patient was seen and examined. Objective - Vital Signs Vital signs: Vital Signs Temp 98.5 F 02/01/25 02:00 Pulse 75 02/01/25 02:00 Resp 18 02/01/25 02:00 BP 137/69 02/01/25 02:00 Pulse Ox 99 02/01/25 02:00 FiO2 Intake & Output 01/31/25 02/01/25 02/01/25 18:59 06:59 18:59 Weight 82.554 kg Other: # Voids 1 - Labs CBC & Chem 7: 02/01/25 06:36 02/01/25 06:36 Labs: Abnormal Lab Results - Last 24 Hours (Table) 01/31/25 01/31/25 02/01/25 Range/Units 10:54 10:54 06:36 WBC 11.54 H (4.50-10.00) 10*3/uL Plt Count 111 L 101 L (140-440) 10*3/uL Sodium 136 L (137-145) mmol/L Potassium 3.0 L (3.5-5.1) mmol/L Chloride 96 L (98-107) mmol/L Carbon Dioxide 31 H (22-30) mmol/L Calcium (8.4-10.2) mg/dL 02/01/25 Range/Units 06:36 WBC (4.50-10.00) 10*3/uL Plt Count (140-440) 10*3/uL Sodium (137-145) mmol/L Potassium 2.8 L (3.5-5.1) mmol/L Chloride (98-107) mmol/L Carbon Dioxide (22-30) mmol/L Calcium 8.2 L (8.4-10.2) mg/dL
[2025-02-01 09:52] VITALS: BP 137/72; PULSE 60; TEMP 98.4
--- NOTE | 2025-02-01 10:46 | CA ---
Transthoracic Echo Report Name: Reji Preston Age: 59 Gender: M : 1965 Exam Date: 02/01/2025 10:02 Exam Location: [facility] Ht (in): 73 Wt (lb): 180 Ordering Physician: Ashley Andres Attending/Referring Phys: [id number], Mckenna Superintendent Refuse Disposal Gayathri Dumont, ANASTASIYA Procedure CPT: Indications: trop elev Cardiac Hx: Technical Quality: Good Contrast 1: Total Dose (mL): Contrast 2: Total Dose (mL): MEASUREMENTS (Male / Female) Normal Values 2D ECHO LV Diastolic Diameter PLAX 5.3 cm 4.2 - 5.9 / 3.9 - 5.3 cm LV Systolic Diameter PLAX 2.8 cm IVS Diastolic Thickness 0.9 cm 0.6 - 1.0 / 0.6 - 0.9 cm LVPW Diastolic Thickness 1.0 cm 0.6 - 1.0 / 0.6 - 0.9 cm LV Relative Wall Thickness 0.4 RV Internal Dim ED PLAX 3.0 cm LA Systolic Diameter LX 4.6 cm 3.0 - 4.0 / 2.7 - 3.8 cm LV Diastolic Volume MOD BP 76.4 cm??? 67 - 155 / 56 - 104 cm??? LV Systolic Volume MOD BP 23.8 cm??? 22 - 58 / 19 - 49 cm??? LV Ejection Fraction MOD BP 68.9 % >= 55 % LV Cardiac Index MOD BP 1537.3 cm???/min???m??? LV Diastolic Volume MOD 4C 73.0 cm??? LV Systolic Volume MOD 4C 21.8 cm??? LV Ejection Fraction MOD 4C 70.1 % LV Cardiac Index MOD 4C 1496.2 cm???/min???m??? LV Diastolic Length 4C 7.5 cm LV Systolic Length 4C 6.1 cm LV Diastolic Volume MOD 2C 77.1 cm??? LV Systolic Volume MOD 2C 25.4 cm??? LV Ejection Fraction MOD 2C 67.0 % LV Cardiac Index MOD 2C 1509.9 cm???/min???m??? LV Diastolic Length 2C 7.8 cm LV Systolic Length 2C 5.9 cm LA Volume 47.9 cm??? 18 - 58 / 22 - 52 cm??? LA Volume Index 23.3 cm???/m??? 16 - 28 cm???/m??? M-MODE Aortic Root Diameter MM 3.0 cm LA Systolic Diameter MM 4.4 cm LA Ao Ratio MM 1.5 AV Cusp Separation MM 1.9 cm DOPPLER MV Area PHT 2.3 cm??? Mitral E Point Velocity 71.6 cm/s Mitral A Point Velocity 86.8 cm/s Mitral E to A Ratio 0.8 MV Deceleration Time 325.2 ms TR Peak Velocity 259.4 cm/s TR Peak Gradient 26.9 mmHg FINDINGS Left Ventricle Left ventricular ejection fraction is estimated at 55-60 %. Normal left ventricular systolic function with no obvious regional wall motion abnormalities. Left ventricular cavity size normal. Left ventricular wall thickness normal. Right Ventricle Normal right ventricular size and function. Right ventricular systolic pressure within normal limits. Right Atrium Normal right atrial size. Left Atrium Mildly increased left atrial diameter. Mitral Valve Structurally normal mitral valve. Mild mitral regurgitation. No mitral stenosis. Aortic Valve Trileaflet aortic valve. No aortic stenosis. Trace aortic regurgitation. Tricuspid Valve Structurally normal tricuspid valve. Mild tricuspid regurgitation. No tricuspid stenosis. Pulmonic Valve Structurally normal pulmonic valve. Trace pulmonic regurgitation. No pulmonic stenosis. Pericardium No pericardial or pleural effusion. Aorta Normal size aortic root and proximal ascending aorta. CONCLUSIONS Normal LV size and systolic function. Mild mitral and tricuspid regurgitation. No pulmonary hypertension. No pericardial effusion Previewed by: Dr. Rosio Falcon MD (Electronically Signed) Final Date: 01 February 2025 10:45
--- NOTE | 2025-02-01 11:19 | P.DS ---
Providers Date of admission: 01/30/25 20:36 Expected date of discharge: 02/01/25 Attending physician: Kenia Wilson MD Consults: 01/30/25 20:31 Consult Physician Urgent Consulting Provider: [facility] Consult Reason/Comments: Elevated troponin Do you want consulting provider notified?: Yes, Notify in am Primary care physician: Vane King MD Hospital Course: 59 year old M with PMH of EtOH abuse, paroxysmal A-Fib, HTN, HLD presents to the ED for intractable N/V along with diarrhea. In the ED he underwent extensive evaluation. BP 171/134, T 99.9F, HR 94, RR 18, 94% on RA. CBC, Coag panel, CMP significant for WBC 22.46, RBC 6.35, Hg 19, Hct 54.5, Na 135, K 2.7, Cl 83, BUN 25, Cr 1.28, glu 126, T. Bili 3.8, alb 5.4. Amylase 81. Lactic acid 5.5-1.9. Trop 0.038-0.035-0.021. Mag 1.5. UA 1+ ketone with trace protein. EKG sinus rhythm with QTc of 500. CXR no acute process. Patient was admitted for further workup and management. Cardiology consulted recommending Echo. 01/31 Patient was seen and examined. He reports difficulty sleeping and nausea. No vomiting or chest pain. CBC and BMP significant for WBC 11.54, Plt 111, Na 136, K 3, Cl 96, bicarb 31. Mag 1.9. 02/01 Patient was seen and examined. Feeling much better today. Wanting to go home. CBC and BMP shows Plt 101, K 2.8, Ca 8.2. Echo is done which shows normal LV function with mild MR and TR. Cardiology signed off. Discharge Plan: Plans for discharge home today after KCl 40 meq PO x 1, 20 meq IV x 1 and Mag sulfate 2g IV x 1. Advised to follow up with PCP within 1-2 days for repeat BMP and Mag. Restart home medications on discharge. Follow up with Cardiology within 2 weeks of discharge. General: non toxic, no distress, appears at stated age Derm: warm, dry Head: atraumatic, normocephalic, symmetric Eyes: EOMI, no lid lag, anicteric sclera Mouth: no lip lesion, mucus membranes moist Cardiovascular: S1S2 reg, no murmur Lungs: Decreased BS bilateral, no rhonchi, no rales , no accessory muscle use Ext: no gross muscle atrophy, no edema, no contractures Neuro: no focal neuro deficits Psych: Alert, oriented, appropriate affect Discharge Diagnosis: Viral gastroenteritis Alcohol induced gastritis Hypokalemia Elevated Troponin Hyperbilirubinemia likely due chronic EtOH abuse Thrombocytopenia likely due to chronic EtOH abuse Alcohol abuse Paroxysmal A-Fib HTN HLD Resolved: MANUEL, HypoMag, Leukocytosis, hemoconcentration This complex discharge took 35 minutes to complete. Patient Condition at Discharge: Stable Plan - Discharge Summary Discharge Rx Participant: Yes New Discharge Prescriptions: New Acetaminophen Tab [Tylenol] 650 mg PO Q6HR PRN tab PRN Reason: Mild Pain Or Fever > 100.5 Continue Aspirin EC [Ecotrin Low Dose] 81 mg PO HS Metoprolol Succinate (ER) [Toprol XL] 50 mg PO HS Rosuvastatin Calcium 5 mg PO HS Discharge Medication List Aspirin EC [Ecotrin Low Dose] 81 mg PO HS 01/30/25 [History] Rosuvastatin Calcium 5 mg PO HS 01/30/25 [History] Metoprolol Succinate (ER) [Toprol XL] 50 mg PO HS 01/31/25 [History] Acetaminophen Tab [Tylenol] 650 mg PO Q6HR PRN tab 02/01/25 [Rx] Follow up Appointment(s)/Referral(s): Parker Hensley MD [Medical Doctor] - 2 Weeks Vane King MD [Primary Care Provider] - 1-2 days Activity/Diet/Wound Care/Special Instructions: Follow up with your PCP within 1-2 days of discharge for repeat labs (BMP and Magnesium). Discharge Disposition: HOME SELF-CARE
[2025-02-01] MEDS: MAGNESIUM SULFATE-D5W PMX 1 GM in DEXTROSE/WATER 1 100ML.BAG IVPB SCH (12:06)
== END 2025-02-01 15:00 | disposition home or self-care (01) | DRG 392 ==
LOC: EC 14:26 → 6NMEDSUR 20:35 → OBSVTOIN 20:36 → 6NMEDSUR 21:45 → 1SOBS 01-31 06:32
PROVIDERS: ADMIT Internal Medicine; ATTEND Internal Medicine
DX: A08.4 Viral intestinal infection, unspecified (principal); E87.20 Acidosis, unspecified; I5A Non-ischemic myocardial injury (non-traumatic); I27.20 Pulmonary hypertension, unspecified; R17 Unspecified jaundice; N17.9 Acute kidney failure, unspecified; E86.0 Dehydration; I48.0 Paroxysmal atrial fibrillation; F10.20 Alcohol dependence, uncomplicated; I10 Essential (primary) hypertension; D69.59 Other secondary thrombocytopenia; K29.20 Alcoholic gastritis without bleeding; E78.00 Pure hypercholesterolemia, unspecified; E83.42 Hypomagnesemia; E87.6 Hypokalemia; G89.29 Other chronic pain; M54.2 Cervicalgia; M54.9 Dorsalgia, unspecified; Z79.82 Long term (current) use of aspirin; Z79.899 Other long term (current) drug therapy; Z86.73 Personal history of transient ischemic attack (TIA), and cerebral infarction without residual deficits; Z88.0 Allergy status to penicillin; G47.9 Sleep disorder, unspecified; R00.1 Bradycardia, unspecified
CPT/HCPCS: 36415; 71046; 80048; 80053; 81003; 82150; 83605; 83735; 84484; 85025; 85027; 85610; 85730; 87040; 93005; 93306; 96361; 96365; 96366; 96367; 96368; 96372; 96375; 96376; 99291